=== PATIENT | female | born 1935 | race Caucasian/White ===

== ENCOUNTER 2023-03-08 09:41 | Outpatient (OUT) | payer MEDICARE, SELFPAY ==
--- NOTE | 2023-03-08 09:51 | XR_ITS ---
The [address] [address] Patient Name: SALMA QUAN MRN: [id number] date: 1935 Sex: F Assigned Patient Location: [facility] Current Patient Location: [facility] Accession/Order Number: [id number] Exam Date: 03/08/2023 09:55 Report Date: 03/08/2023 10:25 At the request of: LILY MAHMOOD Procedure: XR chest 2V EXAM: XR chest 2V HISTORY: Pneumonitis J18.9 COMPARISON: None. TECHNIQUE: PA and lateral views of the chest. FINDINGS: The cardiomediastinal silhouette is normal. Lingula airspace disease. There is no pneumothorax. No pleural effusion is noted. The osseous structures are intact. IMPRESSION: Lingula airspace disease. Electronically authenticated by: MARQUIS CORNELIUS Date: 03/08/2023 10:25
== END 2023-03-08 09:42 | disposition home or self-care (01) ==
LOC: RAD 09:43
PROVIDERS: PCP Family Medicine; Visit Provider Family Medicine
DX: J18.9 Pneumonia, unspecified organism (principal)
CPT/HCPCS: 71046

== ENCOUNTER 2023-04-20 17:45 | Observation (INO) | payer MEDICARE, SELFPAY ==
[2023-04-20 17:47] VITALS: BP 179/68; PULSE 81; RESP 16; TEMP 37.1; O2SAT 98; BMI 35.1
--- NOTE | 2023-04-20 17:49 | ED_ITS ---
HPI - Female Genitourinary General Chief complaint: Urogenital-Female Stated complaint: UTI Time Seen by Provider: 04/20/23 17:49 History of Present Illness HPI Narrative: Patient brought in via EMS with a complaint of weakness. Patient states she has a history of urinary tract infection and pneumonia. She was hospitalized January 25, subsequently went to an extended care facility and was discharged from their March 21. Patient has been at home taking Keflex 500 mg daily for 30 days prophy lactically. She states she was at home and her daughter saw her shakiness if she had chills so they called EMS. Patient states she felt weak. She denies any chest pain, shortness of breath. She denies any nausea, vomiting, diarrhea, constipation, abdominal pain. She denies any flank pain, hematuria, dysuria. She states she has a history of urinary tract infection so she thought she could be having a urinary tract infection. She denies any fall or trauma. She denies any headache. She states she has a cough which is not productive. Related Data Home Medications Medication Instructions Recorded Confirmed cephalexin 500 mg capsule 500 mg PO DAILY 04/20/23 04/20/23 estradiol 0.01% (0.1 mg/gram) 1 g vaginal .Twice a week 04/20/23 04/20/23 vaginal cream furosemide 40 mg tablet 60 mg PO DAILY 04/20/23 04/20/23 gabapentin 300 mg capsule 600 mg PO DAILY 04/20/23 04/20/23 losartan 25 mg tablet 25 mg PO DAILY 04/20/23 04/20/23 metformin 500 mg tablet 500 mg PO BID 04/20/23 04/20/23 oxybutynin chloride 5 mg tablet 5 mg PO DAILY 04/20/23 04/20/23 ropinirole 0.5 mg tablet 0.5 mg PO .hs 04/20/23 04/20/23 Allergies Allergy/AdvReac Type Severity Reaction Status Date / Time naproxen AdvReac Mild Verified 04/20/23 17:50 Review of Systems ROS Status of ROS 10 or more systems reviewed and unremarkable except as noted in history and below [facility] Social History Smoking status: Never smoker Exam Narrative Exam Narrative: Nurses notes and vital signs reviewed and patient is not hypoxic. General: Nontoxic, Elderly, frail, chronically ill and in no apparent distress. Skin: Warm, dry, no pallor noted. No Rash Head: Normocephalic, atraumatic. Neck: Supple, non-tender. Eye: Pupils are equal, round and EOMI. No scleral icterus. Ears, Nose, Mouth, and Throat: no posterior oropharynx erythema or nasal mucosal hypertrophy, uvula is mid-line Oral mucosa is moist Cardiovascular: Regular Rate and Rhythm without murmur, gallop or rub. Respiratory: No accessory muscle use or respiratory distress. Lungs are clear to auscultation, no wheezing, rales or rhonchi Chest Wall: no tenderness Back: No midline thoracic or lumbar vertebral tenderness. No CVA tenderness Musculoskeletal: normal ROM, no calf or popliteal tenderness, no lower extremity edema/swelling GI: Abdomen is soft, non-distended. Normal bowel sounds. No tenderness to palpation. No rebound, guarding, or rigidity noted. Neurological: A&O x4. No cranial nerve dysfunction observed. Moves all extremities. Psychiatric: Cooperative and interactive. Normal mood and affect. Constitutional Vital Signs, click to edit/add: Last Vital Signs Temp 98.7 F 04/20/23 17:47 Pulse 81 04/20/23 17:47 Resp 16 04/20/23 17:47 BP 179/68 H 04/20/23 17:47 Pulse Ox 98 04/20/23 17:47 O2 Del Method Room Air 04/20/23 18:15 Course Vital Signs Vital signs: Vital Signs Temperature 98.7 F 04/20/23 17:47 Pulse Rate 81 04/20/23 17:47 Respiratory Rate 16 04/20/23 17:47 Blood Pressure 179/68 H 04/20/23 17:47 Pulse Oximetry 98 04/20/23 17:47 Oxygen Delivery Method Room Air 04/20/23 17:47 Temperature 98.7 F 04/20/23 17:47 Pulse Rate 81 04/20/23 17:47 Respiratory Rate 16 04/20/23 17:47 Blood Pressure 179/68 H 04/20/23 17:47 Pulse Oximetry 98 04/20/23 17:47 Oxygen Delivery Method Room Air 04/20/23 18:15 MDM - Female Genitourinary MDM Narrative Medical decision making narrative: Patient had an IV established. Previous records were obtained. Lab studies and urinalysis are pending. Patient will be signed out to Dr. Carranza at the end of my shift awaiting labs, reevaluation, and disposition. Differential Diagnosis Differential diagnosis: Likely urinary tract infection Medical Records Attestation: I reviewed the patient's medical records. Lab Data Attestation: I reviewed the patient's lab results. Labs: Lab Results 04/20/23 04/20/23 Range/Units 17:58 18:06 WBC 5.6 (4.0-11.0) 10^3/uL RBC 4.83 (4.20-5.40) 10^6/uL Hgb 14.5 (12.0-16.0) g/dL Hct 44.6 (36.0-48.0) % MCV 92.3 (81.0-99.0) fL MCH 30.0 (26.7-34.0) pg MCHC 32.5 (29.9-35.2) g/dL RDW 14.2 (11.0-15.0) % Plt Count 290 (150-450) 10^3/uL MPV 9.3 L (9.5-13.5) fL Neut % (Auto) 50.4 (43.0-75.0) % Lymph % (Auto) 34.7 (20.5-60.0) % Schleicher % (Auto) 9.7 (1.7-12.0) % Eos % (Auto) 3.4 (0.9-7.0) % Baso % (Auto) 1.3 (0.2-2.0) % Neut # (Auto) 2.8 (1.4-6.5) 10^3/uL Lymph # (Auto) 1.9 (1.2-3.8) 10^3/uL Schleicher # (Auto) 0.5 (0.3-0.8) 10^3/uL Eos # (Auto) 0.2 (0.0-0.7) 10^3/uL Baso # (Auto) 0.1 (0.0-0.1) 10^3/uL Abs Immat Gran (auto) 0.03 (0.00-0.03) 10^3/uL Imm/Tot Granulo (auto) 0.5 (0.0-0.5) % Sodium 143 (136-145) mmol/L Potassium 3.9 (3.5-5.1) mmol/L Chloride 107 (98-107) mmol/L Carbon Dioxide 26.7 (21.0-32.0) mmol/L Anion Gap 13.2 BUN 10.0 (7.0-18.0) mg/dL Creatinine 0.89 (0.55-1.02) mg/dL Est GFR ( Amer) >60 (>=60) Est GFR (Non-Af Amer) >60 (>=60) BUN/Creatinine Ratio 11.2 Glucose 91 (74-106) mg/dL Calcium 9.3 (8.5-10.1) mg/dL Magnesium 2.2 (1.8-2.4) mg/dL Total Bilirubin 1.4 H (0.2-1.0) mg/dL AST 58 H (15-37) U/L ALT 32 (14-59) U/L Alkaline Phosphatase 94 (46-116) U/L Total Protein 7.6 (6.4-8.2) g/dL Albumin 3.0 L (3.4-5.0) g/dL Globulin 4.6 g/dL Albumin/Globulin Ratio 0.7 Urine Color Lt. yellow (YELLOW) Urine Clarity Clear (CLEAR) Urine pH 7.0 (5.0-9.0) Ur Specific [place] 1.010 (1.005-1.025) Urine Protein Negative (NEG/TRACE) mg/dL Urine Glucose (UA) Negative (NEGATIVE) mg/dL Urine Ketones Negative (NEGATIVE) mg/dL Urine Occult Blood Small A (NEGATIVE) Urine Nitrite Negative (NEGATIVE) Urine Bilirubin Negative (NEGATIVE) Urine Urobilinogen 1.0 (0.2-1.0) EU/dL Ur Leukocyte Esterase Negative (NEGATIVE) Urine RBC 2-5 A (0-2) #/HPF Urine WBC 0-2 A (NONE SEEN) #/HPF Ur Squamous Epith Cells Moderate A (NONE/RARE) #/LPF Urine Crystals None seen (None Seen) #/HPF Urine Bacteria Trace A (NONE SEEN) #/HPF Urine Casts None seen (NONE SEEN) #/LPF Urine Mucus None seen (NONE SEEN) Ur Culture Indicated? No Discharge Plan Discharge Patient Disposition: Still a Patient
--- NOTE | 2023-04-20 18:15 | ECG_ITS ---
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
[2023-04-20] MEDS: 0.9 % SODIUM CHLORIDE 1,000 ML 100 ML IV (18:24)
[2023-04-20 18:28] LABS: Bilirubin Urine NEGATIVE (NEGATIVE); Blood Urine SMALL (NEGATIVE); Clarity Urine CLEAR (CLEAR); Color Urine LT. YELLOW (YELLOW); Glucose Urine UA NEGATIVE (NEGATIVE); Ketones Urine NEGATIVE (NEGATIVE); Leukocyte Esterase Urine NEGATIVE (NEGATIVE); Nitrite Urine NEGATIVE (NEGATIVE); Protein Urine NEGATIVE (NEG/TRACE)
[2023-04-20 18:29] LABS: Urine Microscopic Indicated YES
[2023-04-20 18:30] LABS: Basophils Absolute Auto 0.1 10^3/uL (0.0-0.1); Basophils Percent Auto 1.3 % (0.2-2.0); Eosinophils Absolute Auto 0.2 10^3/uL (0.0-0.7); Eosinophils Percent Auto 3.4 % (0.9-7.0); Hematocrit 44.6 % (36.0-48.0); Hemoglobin 14.5 g/dL (12.0-16.0); Immature Granulocytes Abs Auto 0.03 10^3/uL (0.00-0.03); Immature Granulocytes Pct Auto 0.5 % (0.0-0.5); Lymphocytes Absolute Auto 1.9 10^3/uL (1.2-3.8); Lymphocytes Percent Auto 34.7 % (20.5-60.0); Mean Corpuscular HGB Conc 32.5 g/dL (29.9-35.2); Mean Corpuscular Volume 92.3 fL (81.0-99.0); Mean Platelet Volume 9.3 fL (9.5-13.5); Monocytes Absolute Auto 0.5 10^3/uL (0.3-0.8); Monocytes Percent Auto 9.7 % (1.7-12.0); Neutrophils Absolute Auto 2.8 10^3/uL (1.4-6.5); Neutrophils Percent Auto 50.4 % (43.0-75.0); Platelet Count 290 10^3/uL (150-450); Red Blood Count 4.83 10^6/uL (4.20-5.40); Red Cell Distribution Width 14.2 % (11.0-15.0); White Blood Count 5.6 10^3/uL (4.0-11.0)
--- NOTE | 2023-04-20 18:34 | XR_ITS ---
The [address] [address] Patient Name: SALMA QUAN MRN: [id number] date: 1935 Sex: F Assigned Patient Location: ER Current Patient Location: ER Accession/Order Number: [id number] Exam Date: 04/20/2023 18:48 Report Date: 04/20/2023 19:39 At the request of: NEMO CORNEJO Procedure: XR chest 1V EXAM: XR chest 1V HISTORY: cough COMPARISON: 03/08/2023. TECHNIQUE: Chest X-ray, 1 view. FINDINGS: Support devices: None. Lungs/pleura: Mild hazy bibasilar opacities. No definite effusion. No evidence of pneumothorax. Heart and mediastinum: Stable cardiomediastinal contours; unchanged cardiomegaly. Bones: No acute abnormality identified. XR/XR chest 1V IMPRESSION: Mild bibasilar hazy opacities may represent atelectasis or edema/infiltrate. Clinical correlation is necessary. Electronically authenticated by: AGUSTIN COMBS Date: 04/20/2023 19:39
[2023-04-20 18:37] LABS: Bacteria Urine TRACE #/HPF (NONE SEEN); Cast Seen? NONE SEEN #/LPF (NONE SEEN); Crystals Seen? None Seen #/HPF (None Seen); Mucus Urine NONE SEEN (NONE SEEN); Squamous Epithelial Cell Urine MODERATE #/LPF (NONE/RARE); Urine Culture Indicated NO; WBC Urine 0-2 #/HPF (NONE SEEN)
[2023-04-20 18:43] LABS: Alanine Aminotransferase 32 U/L (14-59); Albumin Globulin Ratio 0.7; Alkaline Phosphatase 94 U/L (46-116); Anion Gap 13.2; Aspartate Amino Transferase 58 U/L (15-37); BUN Creatinine Ratio 11.2; Bilirubin Total 1.4 mg/dL (0.2-1.0); Calcium 9.3 mg/dL (8.5-10.1); Carbon Dioxide 26.7 mmol/L (21.0-32.0); Chloride 107 mmol/L (98-107); Estimated GFR (African America >60 (>=60); Estimated GFR (Non-African Ame >60 (>=60); Globulin 4.6 g/dL; Glucose 91 mg/dL (74-106); Magnesium 2.2 mg/dL (1.8-2.4); Potassium 3.9 mmol/L (3.5-5.1); Sodium 143 mmol/L (136-145); Total Protein 7.6 g/dL (6.4-8.2)
[2023-04-20 18:59] VITALS: PULSE 73; RESP 14; O2SAT 98
[2023-04-20 19:02] LABS: Lactate/Lactic Acid 2.5 mmol/L (0.4-2.0)
[2023-04-20 19:42] VITALS: PULSE 66; RESP 18; O2SAT 96
[2023-04-20 20:06] VITALS: BP 148/78; PULSE 77; RESP 22
[2023-04-20 21:01] LABS: Lactate/Lactic Acid 1.5 mmol/L (0.4-2.0)
[2023-04-20] MEDS: KETOROLAC TROMETHAMINE 30 MG/ML VIAL IVP (21:32)
--- NOTE | 2023-04-20 21:34 | PC.NURSE ---
used walker in ER to attempt to ambulate pt at bedside for a poss d/c to home. Pt takes a couple steps front and takes a couple back to the bed. pt had to be assisted back into bed by 2 nurses d/t pt's weakness. notifjuan c
--- NOTE | 2023-04-20 21:46 | PC.NURSE ---
daughter and pt informed of plan to admit to [facility]
[2023-04-20 22:03] VITALS: BP 148/78; PULSE 77; RESP 18; O2SAT 95
--- NOTE | 2023-04-20 22:11 | PC.NURSE ---
report complete with [place] Yue ZAMORA via phone, pt will be transferred by staff to [facility]. Pt's belongings placed in pt belonging bag
[2023-04-20 22:24] VITALS: BMI 34.6
[2023-04-20 22:28] VITALS: BP 173/77; PULSE 70; RESP 18; TEMP 36.7; O2SAT 93
--- NOTE | 2023-04-20 23:50 | W.PM.TELEPN ---
Progress Note: Subjective Subjective Interval history: Family called EMS to be brought in for weakness with difficulty standing. PAtient was admitted in january for UTI and discharged to rehab graduating home on March and doing well until today. Work up overall unremarkable including no apperent UTI. Lactate was elevated but normalized with IVF. No presence of fever or leukocytosis. Ambulation was attempted with minimal ability other than transfer, pivoting. this is below her recent baseline prompting family request for admission for re eval to return to SNF. At present patient reports she felt weak and shaky this morning without UTI symptoms however this is how she felt previously. Symptoms minimally improved at present. Exam Constitutional Vital Signs, click to edit/add: Last Vital Signs Temp 98.0 F 04/20/23 22:28 Pulse 70 04/20/23 22:28 Resp 18 04/20/23 22:28 BP 173/77 H 04/20/23 22:28 Pulse Ox 93 L 04/20/23 22:28 O2 Del Method Room Air 04/20/23 22:28 Common normals: no apparent distress Nutritional appearance: overweight Orientation/consciousness: Yes awake, Yes oriented to person, Yes oriented to place and Yes oriented to time HENMT Common normals: normocephalic Neck & C-Spine Common normals: full ROM and supple Respiratory Common normals: normal respiratory effort Cardio Common normals: regular rate and regular rhythm GI Common normals: soft to palpation Extremity Other: bilateral lower ext. pitting edema. sock mccarthy remain after sock removal bilaterally. Neuro Common normals: oriented x3 Progress Note: Objective Labs Labs: Short CBC 04/20/23 Range/Units 17:58 WBC 5.6 (4.0-11.0) 10^3/uL Hgb 14.5 (12.0-16.0) g/dL Hct 44.6 (36.0-48.0) % Plt Count 290 (150-450) 10^3/uL BMP 04/20/23 17:58 Sodium 143 Potassium 3.9 Chloride 107 Carbon Dioxide 26.7 BUN 10.0 Creatinine 0.89 Glucose 91 Calcium 9.3 Liver Function 04/20/23 Range/Units 17:58 Total Bilirubin 1.4 H (0.2-1.0) mg/dL AST 58 H (15-37) U/L ALT 32 (14-59) U/L Alkaline Phosphatase 94 (46-116) U/L Albumin 3.0 L (3.4-5.0) g/dL Urine 04/20/23 Range/Units 18:06 Urine Color Lt. yellow (YELLOW) Urine Clarity Clear (CLEAR) Urine pH 7.0 (5.0-9.0) Ur Specific [place] 1.010 (1.005-1.025) Urine Protein Negative (NEG/TRACE) mg/dL Urine Glucose (UA) Negative (NEGATIVE) mg/dL Progress Note: A&P Assessment and Plan (1) Weakness: Plan 1. Weakness: Although no obvious UTI I have requested a urine culture. No overt infectious findings and will involve PT/ OT eval. Her dizziness will be investigated with a head CT. otherwise, continue home meds, therapy eval for SNF placement and routine medical management. Her dizziness is not described as a central vertigo. PCP is Dr. Angel Pulmonary: Dr. Estrella Telemedicine Attestation Telemedicine Attestation I conducted this encounter from [[facility]] via secure live, [id number] video conference with the patient, located at [facility] with [Yue ZAMORA]. Prior to the interview, the risks and benefits of telemedicine were discussed with the patient and verbal consent was obtained.
[2023-04-21] MEDS: ENOXAPARIN SODIUM 40 MG/0.4 ML SYRINGE SUBQ ×2 (00:11→21:10)
[2023-04-21] MEDS: 0.9 % SODIUM CHLORIDE 1,000 ML 100 ML IV (00:11)
[2023-04-21 04:45] LABS: Basophils Absolute Auto 0.1 10^3/uL (0.0-0.1); Basophils Percent Auto 1.3 % (0.2-2.0); Eosinophils Absolute Auto 0.3 10^3/uL (0.0-0.7); Eosinophils Percent Auto 4.9 % (0.9-7.0); Hematocrit 37.2 % (36.0-48.0); Hemoglobin 12.5 g/dL (12.0-16.0); Immature Granulocytes Abs Auto 0.03 10^3/uL (0.00-0.03); Immature Granulocytes Pct Auto 0.5 % (0.0-0.5); Lymphocytes Absolute Auto 2.1 10^3/uL (1.2-3.8); Lymphocytes Percent Auto 38.4 % (20.5-60.0); Mean Corpuscular HGB Conc 33.6 g/dL (29.9-35.2); Mean Corpuscular Hemoglobin 32.7 pg (26.7-34.0); Mean Corpuscular Volume 97.4 fL (81.0-99.0); Mean Platelet Volume 9.5 fL (9.5-13.5); Monocytes Absolute Auto 0.7 10^3/uL (0.3-0.8); Monocytes Percent Auto 12.8 % (1.7-12.0); Neutrophils Absolute Auto 2.3 10^3/uL (1.4-6.5); Neutrophils Percent Auto 42.1 % (43.0-75.0); Platelet Count 242 10^3/uL (150-450); Red Blood Count 3.82 10^6/uL (4.20-5.40); Red Cell Distribution Width 15.9 % (11.0-15.0); White Blood Count 5.5 10^3/uL (4.0-11.0)
[2023-04-21 04:50] LABS: PCO2 VBG 34.4 mmHg (40.0-52.0); pH VBG 7.497 (7.330-7.430)
[2023-04-21 05:22] VITALS: BP 162/85; PULSE 57; RESP 16; TEMP 36.4; O2SAT 94
--- NOTE | 2023-04-21 06:00 | CT_ITS ---
The [address] [address] Patient Name: SALMA QUAN MRN: [id number] date: 1935 Sex: F Assigned Patient Location: [facility] Current Patient Location: [facility] Accession/Order Number: [id number] Exam Date: 04/21/2023 05:25 Report Date: 04/21/2023 06:36 At the request of: RUSH MARIN Procedure: CT head/brain wo con EXAM: CT scan of the head without contrast. Dose reduction technique used: Automated exposure control and/or adjustment of the mA and/or kV according to patient size and/or use of iterative reconstruction technique. REASON FOR EXAM: Dizziness COMPARISON: T scan dated 03/01/2022 FINDINGS: No intracranial hemorrhage, mass effect, midline shift, fractures or evidence of acute ischemic infarct. No hydrocephalus. Mild generalized cerebral and cerebellar volume loss. Mild small vessel gliosis. Left maxillary ethmoid sinus mucosal thickening. Remainder unremarkable. CT/CT head/brain wo con IMPRESSION: No acute intracranial abnormalities. Electronically authenticated by: KIARA VILLAGRAN Date: 04/21/2023 06:36
[2023-04-21] MEDS: FUROSEMIDE 40 MG TABLET 60 MG PO (09:03)
[2023-04-21] MEDS: OXYBUTYNIN chloride 5 MG TABLET PO (09:04)
[2023-04-21] MEDS: LOSARTAN POTASSIUM 25 MG TABLET PO (09:04)
[2023-04-21] MEDS: METFORMIN HCL 500 MG TABLET PO ×2 (09:04→21:10)
[2023-04-21] MEDS: GABAPENTIN 300 MG CAPSULE 600 MG PO (09:04)
[2023-04-21] MEDS: OMEPRAZOLE 20 MG CAPSULE.DR PO ×2 (09:04→21:10)
[2023-04-21] MEDS: CEPHALEXIN 500 MG CAPSULE PO (09:04)
--- NOTE | 2023-04-21 09:20 | PC.NURSE ---
patient up from chair with walker per self and walked to bathroom with only oversight from copywriter. patient ableto use restroom and complete pericare on own. patient walked back to chair per self with walker. no SOB noted. call light within reach.
--- NOTE | 2023-04-21 12:21 | PM.HP ---
H&P: HPI History of Present Illness Chief complaint: Weakness Narrative: 88 y/o female brought to ER with weakness. Admitted 01/25-01/28 with UTI and pneumonia. Sent to SNF 01/28-03/21 and home with home health. Reports completed PT but still getting home health. History of recurrent UTI and on keflex. Daughter noticed shaking and chills. Patient developed worsening weakness and not able to get up out of chair unassisted. Concerned of UTI and to ER. WBC and UA normal. Afebrile. Labs with normal renal function. Attempted to ambulate and severe weakness. Family concerned of ability to stay at home and admitted for observation. Started IV fluids and resumed home medication. Feels better this am. Still a little shaky but moving better and able to transfer with minimal assistance. Review of Systems ROS Constitutional Reports: chills; Denies: fever or night sweats Cardiovascular Denies: chest pain, palpitations or edema Respiratory Denies: shortness of breath, cough or wheezing Gastrointestinal Denies: abdominal pain, nausea, vomiting or diarrhea Genitourinary Denies: painful urination [facility] Medical History (Updated 04/21/23 @ 10:43 by Magnus Garrido MD) Social History (Updated 04/20/23 @ 22:23 by Yue Knutson) Within the past year, how often did you have a drink containing alcohol: never Score interpretation: A score less than 3 is consistent with normal alcohol consumption. Smoking status: Never smoker Non-prescribed substance use: denies use Previous occupational history: retired Highest level of school completed/degree received: high school graduate Are you now , , , , never or living with a partner: In a typical week, how many times do you talk on the telephone with family, friends, or neighbors: 3 or more times per week How often do you get together with friends or relatives: 3 or more times per week How often do you attend restorationist or buddhist services: 1-3 times per year Little interest or pleasure in doing things: not at all Feeling down, depressed, or hopeless: not at all Feel stressed/tense/nervous/anxious/difficulty sleeping: not at all Do you think of yourself as: straight/heterosexual Gender Identity: female Meds Home Medications and Allergies Home Medications Medication Instructions Recorded Confirmed Type cephalexin 500 mg capsule 500 mg PO DAILY 04/20/23 04/20/23 History estradiol 0.01% (0.1 mg/gram) 1 g vaginal .Twice a week 04/20/23 04/20/23 History vaginal cream furosemide 40 mg tablet 60 mg PO DAILY 04/20/23 04/20/23 History gabapentin 300 mg capsule 600 mg PO DAILY 04/20/23 04/20/23 History losartan 25 mg tablet 25 mg PO DAILY 04/20/23 04/20/23 History metformin 500 mg tablet 500 mg PO BID 04/20/23 04/20/23 History oxybutynin chloride 5 mg tablet 5 mg PO DAILY 04/20/23 04/20/23 History ropinirole 0.5 mg tablet 0.5 mg PO .hs 04/20/23 04/20/23 History Allergies Allergy/AdvReac Type Severity Reaction Status Date / Time naproxen AdvReac Mild Verified 04/20/23 17:50 Exam Constitutional Vital Signs, click to edit/add: Last Vital Signs Temp 97.6 F 04/21/23 05:22 Pulse 57 L 04/21/23 05:22 Resp 16 04/21/23 05:22 BP 162/85 H 04/21/23 05:22 Pulse Ox 94 L 04/21/23 05:22 O2 Del Method Room Air 04/21/23 05:22 Documenting provider has reviewed patient's vital signs: yes Common normals: no apparent distress, oriented x3 and alert HENMT Common normals: normocephalic Eye Common normals: PERRL and EOMs intact bilaterally Respiratory Common normals: normal respiratory effort and clear to auscultation bilaterally Cardio Common normals: regular rate and regular rhythm; gallops detected, murmurs detected and rub detected GI Common normals: Normal to inspection, nondistended, normoactive bowel sounds present and non-tender Extremity General: no edema Results Labs Labs: Short CBC 04/20/23 04/20/23 Range/Units 04:15 17:58 WBC 5.5 5.6 (4.0-11.0) 10^3/uL Hgb 12.5 14.5 (12.0-16.0) g/dL Hct 37.2 44.6 (36.0-48.0) % Plt Count 242 290 (150-450) 10^3/uL BMP 04/20/23 17:58 Sodium 143 Potassium 3.9 Chloride 107 Carbon Dioxide 26.7 BUN 10.0 Creatinine 0.89 Glucose 91 Calcium 9.3 Liver Function 04/20/23 Range/Units 17:58 Total Bilirubin 1.4 H (0.2-1.0) mg/dL AST 58 H (15-37) U/L ALT 32 (14-59) U/L Alkaline Phosphatase 94 (46-116) U/L Albumin 3.0 L (3.4-5.0) g/dL Urine 04/20/23 Range/Units 18:06 Urine Color Lt. yellow (YELLOW) Urine Clarity Clear (CLEAR) Urine pH 7.0 (5.0-9.0) Ur Specific [place] 1.010 (1.005-1.025) Urine Protein Negative (NEG/TRACE) mg/dL Urine Glucose (UA) Negative (NEGATIVE) mg/dL ABG ABG results: 04/21/23 04:15 VBG pH 7.497 H VBG pCO2 34.4 L Assessment and Plan Assessment and Plan (1) Weakness: (2) Recurrent UTI: (3) Type 2 diabetes mellitus with hyperglycemia: (4) Benign essential hypertension: (5) Edema: Plan Presented with weakness but negative workup. Labs normal and no evidence of UTI. Check urine culture due to recurrent UTI. Resume home medication. Strength improved but continued weakness. Family interested in SNF and had long discussion with family. Patient currently in Observation and no specific diagnosis to qualify for inpatient rehab. If want to go to SNF will have out of pocket cost. Start PT/OT and consult social science teacher. Reassess in am but will be ready for discharge.
[2023-04-21 14:21] VITALS: BP 115/67; PULSE 60; RESP 16; TEMP 36.6; O2SAT 96
[2023-04-21 20:00] VITALS: BP 149/82; PULSE 57; RESP 16; TEMP 36.6
[2023-04-21] MEDS: ROPINIROLE HCL 0.25 MG TABLET 0.5 MG PO (21:16)
[2023-04-21 22:32] VITALS: RESP 16; O2SAT 92
[2023-04-22 04:41] LABS: Basophils Absolute Auto 0.1 10^3/uL (0.0-0.1); Basophils Percent Auto 1.7 % (0.2-2.0); Eosinophils Absolute Auto 0.3 10^3/uL (0.0-0.7); Eosinophils Percent Auto 5.5 % (0.9-7.0); Hematocrit 36.9 % (36.0-48.0); Hemoglobin 12.4 g/dL (12.0-16.0); Immature Granulocytes Abs Auto 0.02 10^3/uL (0.00-0.03); Immature Granulocytes Pct Auto 0.4 % (0.0-0.5); Lymphocytes Absolute Auto 1.7 10^3/uL (1.2-3.8); Lymphocytes Percent Auto 36.6 % (20.5-60.0); Mean Corpuscular HGB Conc 33.6 g/dL (29.9-35.2); Mean Corpuscular Hemoglobin 31.6 pg (26.7-34.0); Mean Corpuscular Volume 93.9 fL (81.0-99.0); Mean Platelet Volume 9.4 fL (9.5-13.5); Monocytes Absolute Auto 0.6 10^3/uL (0.3-0.8); Monocytes Percent Auto 13.3 % (1.7-12.0); Neutrophils Percent Auto 42.5 % (43.0-75.0); Platelet Count 214 10^3/uL (150-450); Red Blood Count 3.93 10^6/uL (4.20-5.40); Red Cell Distribution Width 14.5 % (11.0-15.0); White Blood Count 4.8 10^3/uL (4.0-11.0)
[2023-04-22 04:48] VITALS: BP 157/66; PULSE 83; RESP 16; TEMP 36.7; O2SAT 92
[2023-04-22 04:58] LABS: Anion Gap 9.2; BUN Creatinine Ratio 15.6; Calcium 8.2 mg/dL (8.5-10.1); Carbon Dioxide 25.7 mmol/L (21.0-32.0); Chloride 110 mmol/L (98-107); Estimated GFR (African America >60 (>=60); Estimated GFR (Non-African Ame >60 (>=60); Glucose 90 mg/dL (74-106); Potassium 3.9 mmol/L (3.5-5.1); Sodium 141 mmol/L (136-145)
[2023-04-22] MEDS: FUROSEMIDE 40 MG TABLET 60 MG PO (09:15)
[2023-04-22] MEDS: METFORMIN HCL 500 MG TABLET PO (09:15)
[2023-04-22] MEDS: OXYBUTYNIN chloride 5 MG TABLET PO (09:15)
[2023-04-22] MEDS: GABAPENTIN 300 MG CAPSULE 600 MG PO (09:15)
[2023-04-22] MEDS: OMEPRAZOLE 20 MG CAPSULE.DR PO (09:16)
[2023-04-22] MEDS: CEPHALEXIN 500 MG CAPSULE PO (09:16)
[2023-04-22] MEDS: LOSARTAN POTASSIUM 25 MG TABLET PO (09:16)
--- NOTE | 2023-04-22 10:55 | SWNOTE1 ---
SW met with pt to discuss dc needs. Pt lives at home with her . Pt voiced she was at [facility] and was discharged on March 21. She voiced she has [facility] coming in, only nursing. Therapy with home health just ended a week ago. SW and pt discussed about pt being in observation status and not meeting inpt criteria to have a 3 day inpt stay for rehab. Pt voiced she wishes her family was here. SW to come back when family is present. SW did let her know that there is always the option of paying privately to go to rehab. SW also let her know we can add PT/OT back on with her home health as well. SW to stop back in once family arrives.
--- NOTE | 2023-04-22 12:08 | SWNOTE1 ---
SW spoke with the family in the room. SW discussed that pt is in observation and does not qualify for inpt stay, they would have to pay out of pocket for rehab at [facility]. They voiced understanding, they would just like therapy added on to the Home Health. SW to add on therapy to home health. Pt will be discharged today and resume her [facility]. SW reviewed [facility] form with pt and family, they voiced understanding. Pt's daughter signed [facility] form, original given to daughter and copy placed on chart.
--- NOTE | 2023-04-22 12:30 | CM.NOTE ---
Rounds made with Dr. Garrido. Plan for discharge today with [facility] with the addition of P.T. to their services.
--- NOTE | 2023-04-22 14:57 | P.DS_ITS ---
DS: Providers Provider Date of admission: 04/20/23 22:16 Primary care physician: Fatoumata Chase MD Consults: 04/20/23 22:05 Occupational Therapy Eval and Treat Routine Physical Therapy Eval and Treat Routine DS: Diagnosis Discharge Diagnosis (1) Weakness: (2) Recurrent UTI: (3) Type 2 diabetes mellitus with hyperglycemia: (4) Benign essential hypertension: (5) Edema: DS: Summary Hospital Course Hospital Course: Reason for admission: See H&P for details. 88 y/o female brought to ER with weakness. Admitted 01/25-01/28 with UTI and pneumonia. Sent to SNF 01/28-03/21 and home with home health. Reports completed PT but still getting home health. History of recurrent UTI and on keflex. Daughter noticed shaking and chills. Patient developed worsening weakness and not able to get up out of chair unassisted. Concerned of UTI and to ER. WBC and UA normal. Afebrile. Labs with normal renal function. Attempted to ambulate and severe weakness. Family concerned of ability to stay at home and admitted for observation. Hospital course: Started IV fluids and resumed home medication. Strength slowly improved. Able to get up and move around room with minimal assistance. Started PT. Family interested in SNF but no qualifying diagnosis. Long dis cussion with family about SNF and likely would need to pay out of pocket. Patient did well in hospital and went up a few steps with therapy. on site services specialist arranged for home PT. Discharged home in stable condition. Resume medication without change. Time Spent with Patient Time attestation: Total time spent providing and/or coordinating discharge services: Exam Constitutional Vital Signs, click to edit/add: Last Vital Signs Temp 98.1 F 04/22/23 04:48 Pulse 83 04/22/23 04:48 Resp 16 04/22/23 04:48 BP 157/66 H 04/22/23 04:48 Pulse Ox 92 L 04/22/23 04:48 O2 Del Method Room Air 04/22/23 04:48 Documenting provider has reviewed patient's vital signs: yes Common normals: no apparent distress, oriented x3 and alert HENMT Common normals: normocephalic Eye Common normals: PERRL and EOMs intact bilaterally Respiratory Common normals: normal respiratory effort and clear to auscultation bilaterally Cardio Common normals: regular rate, regular rhythm, no gallops, no murmurs and no rub GI Common normals: Normal to inspection, nondistended, normoactive bowel sounds present and non-tender Extremity Common normals: no pedal edema DS: Data Data Completed and Pending Labs on day of discharge: Labs from last 24 hours 04/22/23 04:30 WBC 4.8 RBC 3.93 L Hgb 12.4 Hct 36.9 MCV 93.9 MCH 31.6 MCHC 33.6 RDW 14.5 Plt Count 214 MPV 9.4 L Neut % (Auto) 42.5 L Lymph % (Auto) 36.6 [place] % (Auto) 13.3 H Eos % (Auto) 5.5 Baso % (Auto) 1.7 Neut # (Auto) 2.0 Lymph # (Auto) 1.7 [place] # (Auto) 0.6 Eos # (Auto) 0.3 Baso # (Auto) 0.1 Abs Immat Gran (auto) 0.02 Imm/Tot Granulo (auto) 0.4 Sodium 141 Potassium 3.9 Chloride 110 H Carbon Dioxide 25.7 Anion Gap 9.2 BUN 12.0 Creatinine 0.77 Est GFR ( Amer) >60 Est GFR (Non-Af Amer) >60 BUN/Creatinine Ratio 15.6 Glucose 90 Calcium 8.2 L Discharge Plan Discharge Disposition: Home, Self-Care Condition: Good Discharge Medications: Continued estradiol 0.01 % (0.1 mg/gram) cream 1 g VAGINAL .Twice a week furosemide 40 mg tablet 60 mg PO DAILY gabapentin 300 mg capsule 600 mg PO DAILY metformin 500 mg tablet 500 mg PO BID losartan 25 mg tablet 25 mg PO DAILY oxybutynin chloride 5 mg tablet 5 mg PO DAILY ropinirole 0.5 mg tablet 0.5 mg PO .hs cephalexin 500 mg capsule 500 mg PO DAILY Rx Instructions: Take for 30 days. Started 04/01/23 Activity: resume usual activities as tolerated Diet: advance to your usual diet Patient Instructions: Weakness (DC) [employer] Instructions[facility], phone number is [phone] Forms: Portal Instructions Follow Up Appointments: Follow up appt. with Dr. Chase on @ 2:00pm Office #: [phone] Discharge Date/Time: 04/22/23 14:21
--- NOTE | 2023-04-23 12:36 | CM.DCFOLLOWU ---
Person spoke with: Dottie How are you feeling? alright How is your pain? no complaints Did you understand your discharge instructions? yes Do you have any questions about your discharge instructions? no Were you given any prescriptions at discharge? no changes. Were you able to get your prescriptions filled? Do you understand how to take your medications as ordered? NA Do you have any questions about your follow up appointment and do you plan to keep your follow up appointment? April 26, 2023. Is there anything else that you would like to discuss? No Questions/Comments/Concerns/Other: Thank you for calling
== END 2023-04-22 14:21 | disposition home or self-care (01) ==
LOC: ER 21:38 → MS 22:22
PROVIDERS: Emergency Medicine; Admitting Provider Family Medicine; Emergency Provider Internal Medicine; PCP Family Medicine; Visit Provider Family Medicine
DX: N39.0 Urinary tract infection, site not specified (principal); E11.65 Type 2 diabetes mellitus with hyperglycemia; I10 Essential (primary) hypertension; R60.9 Edema, unspecified; R53.1 Weakness; Z87.440 Personal history of urinary (tract) infections; Z79.899 Other long term (current) drug therapy; Z79.84 Long term (current) use of oral hypoglycemic drugs
CPT/HCPCS: 36415; 70450; 71045; 80048; 80053; 81001; 81003; 82800; 83605; 83735; 85025; 87086; 93005; 96372; 96374; 97110; 97161; 97165; 97530; 99285; G0378; Q3014

== ENCOUNTER 2023-07-24 16:31 | Outpatient (OUT) | payer MEDICARE, SELFPAY ==
[2023-07-24 16:38] LABS: Bilirubin Urine NEGATIVE (NEGATIVE); Blood Urine SMALL (NEGATIVE); Clarity Urine CLEAR (CLEAR); Color Urine LT. YELLOW (YELLOW); Glucose Urine UA NEGATIVE (NEGATIVE); Ketones Urine NEGATIVE (NEGATIVE); Leukocyte Esterase Urine SMALL (NEGATIVE); Nitrite Urine NEGATIVE (NEGATIVE); Protein Urine NEGATIVE (NEG/TRACE); Specific Gravity Urine <=1.005 (1.005-1.025); Urobilinogen Urine 0.2 EU/dL (0.2-1.0)
--- OUTSIDE RECORDS SUMMARY | 2023-09-03 15:33 | XMS_ITS | CCD ---
Author Name Unknown Address [address] [place] [address] Organization [facility] Care Team Providers Care Boatswain'S Mate Name Role Phone Brendon Momin Unavailable [place] Unavailable Bobby Ramesh Unavailable MD Berndon Momin Primary Care Provider MD Brendon Momin Attending Provider Staci Asencio Unavailable MD Brendon Momin Primary Care Provider GREG Asencio Attending Provider MD Brendon Momin Attending Provider [phone] DR CHON LYNCH Admitting Unavailable DR LORA BLACKBURN Consulting Unavailable SYED, DR CHON Henry Attending Unavailable [facility], DR HEALY Primary Care Unavailable MADIE, DR BOBBY Benavidez Consulting Unavailable SYED, DR CHON Henry Consulting Unavailable CHANTAL Mendoza, NEMO Consulting Unavailable GISELLE, DR HEALY Primary Care Unavailable DR LORA BLACKBURN Admitting Unavailable DR LORA BLACKBURN Attending Unavailable DR LORA BLACKBURN Consulting Unavailable STEFANI .DR ANNIE Consulting Unavailable MADIE, DR BOBBY Benavidez Consulting Unavailable RONDA .PRISCILLA Consulting Unavailable CHANTAL Mendoza, NEMO Consulting Unavailable GISELLE, DR HEALY Primary Care Unavailable SHAIKH Cris SHAW Admitting Unavailable DR MARQUIS DENNY Consulting Unavailable SHAIKH Cris SHAW Attending Unavailable SHAIKH Cris SHAW Consulting Unavailable BOBBY JUAREZ Consulting Unavailable ISHA ELDRIDGE Consulting Unavailable SURAJ KUNZ Consulting Unavailable GISELLE, DR HEALY Primary Care Unavailable DAVIE DEE Consulting Unavailable VALERIA, LEDEZMA H Admitting Unavailable FAWWAD, LEDEZMA H Attending Unavailable SHAIKH Cris SHAW Consulting Unavailable MARCO LEROY Consulting Unavailable SalvatoreFatoumata Unavailable MD Brendon Momin Primary Care Provider MD Brendon Momin Attending Provider [phone] GREG Asencio Attending Provider Brendon Momin Admitting Unavailable Brendon Momin Primary Care Unavailable Brendon Momin Attending Unavailable Brendon Momin Admitting Unavailable Brendon Momin Primary Care Unavailable Brendon Momin Attending Unavailable Elif, Staci Admitting Unavailable Elif, Staci Attending Unavailable Brendon Momin Primary Care Unavailable Brendon Momin Admitting Unavailable Brendon Momin Primary Care Unavailable Brendon Momin Attending Unavailable Brendon Momin Primary Care Unavailable Brendon Momin Attending Unavailable Brendon Momin Admitting Unavailable Elif, Staci Admitting Unavailable Brendon Momin Primary Care Unavailable Elif, Staci Attending Unavailable Brendon Momin Primary Care Unavailable Ingrid Klein Admitting Unavailable Ingrid Klein Attending Unavailable Morena Vera Unavailable Allergies Allergy Classification Reported Allergen(s) Allergy Type Date of Onset Reaction(s) Facility (20 sources) Acetaminophen / dichloralphenazone / isometheptene; Translations: [MIDRIN] Drug Allergy 10-18-19 13 Unknown [facility] (20 sources) Acetaminophen / oxyCODONE Drug Allergy Unknown [facility] Other (20 sources) Clarithromycin Drug Allergy 09-29-19 19 Unknown, Unknown Reaction [facility] (20 sources) Esomeprazole Drug Allergy 09-29-19 19 stomach upset [facility] (20 sources) Naproxen Drug Allergy 09-29-19 19 muscle spasms, Shakiness [facility] (7 sources) Acetaminophen; Translations: [acetaminophen] Drug Allergy 09-29-19 Unknown Reaction [facility] (7 sources) dichloralphenazone; Translations: [dichloralphenazone] Drug Allergy 09-29-19 Unknown Reaction [facility] (7 sources) isometheptene; Translations: [isometheptene] Drug Allergy 09-29-19 Unknown Reaction [facility] (7 sources) oxyCODONE; Translations: [oxycodone] Drug Allergy 04-14-20 19 Unknown Reaction [facility] (20 sources) Acetaminophen / dichloralphenazone / isometheptene Drug Allergy Unknown [facility] Other (1 source) Clarithromycin Drug Allergy 10-05-19 13 [facility] (1 source) Naproxen Drug Allergy 02-14-20 22 [facility] (1 source) Clarithromycin Drug Allergy 09-29-19 19 [facility] (1 source) Esomeprazole Drug Allergy 09-29-19 [facility] (1 source) Naproxen Drug Allergy 09-29-19 [facility] Medications Current Medications Medication Drug Class(es) Dates Sig (Normalized) Sig (Original) acetaminophen 500 mg oral tablet (20 sources) Start: 06-12-2018 Acetaminophen (Tylenol Extra Strength) 500 mg Tablet Active 500 MG PO As Directed June 12, 2018 12:00am take 1 tablet by eneida th every four hours as needed Acetaminophen 325 MG 1 tablet as needed Orally every 4 hrs Not-Taking albuterol 0.833 mg/ml / ipratropium bromide 0.167 mg/ml inhalation solution (10 sources) Anticholinergic, beta2-Adrenergic Agonist take 3 mL by inhalation every six hours as needed Ipratropium-Albuterol 0.5-2.5 (3) MG/3ML 3 mL as needed Inhalation every 6 hrs for 30 days Active cephalexin 500 mg oral capsule (20 sources) Cephalosporin Antibacterial Start : 02-25 take 1 capsule by mouth every twenty-four hours Cephalexin 500 MG 1 capsule Orally Once a day for 30 days Feb, Active Start: 07-21-2018 End: 07-28-2018 take 1 capsule by mouth twice daily Cephalexin (Keflex) 500 mg capsule Discontinued 500 MG PO Twice daily 29 03July 21, 2018 1:00am July 28, 2018 1:02am diclofenac sodium 0.01 mg/mg topical gel (6 sources) Nonsteroidal Anti-inflammatory Drug Start: 05-25-2020 Start: 05-25-2020 Diclofenac Sod ium 1 % as directed Transdermal Twice a day May, Active doxycycline hyclate 100 mg oral capsule (12 sources) Tetracycline-class Drug Start: 07-07-2021 take 100 mg by mouth twice daily Doxycycline Hyclate Active 100 MG PO Twice daily 05 07July 07, 2021 12:00am estradiol 0.1 mg/ml vaginal cream (13 sources) Estrogen Start: 02-25-2023 Estrace 0.1 MG/GM 1 gm Vaginal twice a week for 30 days Feb, Active Start: 02-25-2023 furosemide 40 mg oral tablet (20 sources) Loop Diuretic Start: 12-29-2020 take 1 tablet by mouth every twenty-four hours Furosemide 40 MG 1 tablet Orally Once a day Dec, Active Start: 12-29-2020 take 0.5 tablet by m outh every other day Furosemide 40 MG 1/2 tablet Orally QOD Dec, Not-Taking Furosemide 40 MG 1.5 Orally Once a day for 90 days Active gabapentin 300 mg oral capsule (20 sources) Anti-epileptic Agent Start: 04-05-2018 take 600 mg by mouth once daily Gabapentin Active 600 MG PO Daily April 05, 2018 12:00am take 2 capsules by mouth once da isidoro Gabapentin 300 mg TAKE 2 CAPSULES BY MOUTH EVERY DAY Orally for 30 days Active LORazepam 0.5 mg oral tablet (20 sources) Benzodiazepine Start: 09-02-2019 Lorazepam (Ati van) 0.5 mg Tablet Active TABLET September 02, 2019 1:00am Start: 06-12-2018 End: 07-21-2018 Lorazepam (Ativan) 0.5 mg Ta blet Discontinued 0.5 MG PO As Directed June 12, 2018 12:00am July 21, 2018 2:54pm Start: 04-05-2018 End: 04-06-2018 take 0.5 mg by mouth once daily Lorazepam Discontinued 0.5 MG PO Daily April 05, 2018 12:00am April 06, 2018 1:36am losartan potassium 25 mg oral tablet (20 sources) Angiotensin 2 Receptor Salma Start: 08-28-2010 take 25 mg by mouth once daily Losartan Active 25 MG PO Daily April 05, 2018 12:00am metFORMIN hydrochloride 500 mg oral tablet (20 sources) Biguanide Start: 04-05-2018 take 500 mg by mouth twice daily Metformin Active 500 MG PO Twice daily April 05, 2018 12:00am take 1 tablet by eneida th every twenty-four hours metFORMIN HCl 500 MG 1 tablet with a meal Orally Once a day for 30 day(s) Active naproxen sodium 550 mg oral tablet (12 sources) Nonsteroidal Anti-inflammatory Drug Start: 04-14-2019 take 1 tablet by mouth twice daily Naproxen Sodium (Anaprox Ds) 550 mg Tablet Active 550 MG PO Twice daily April 14, 2019 12:00am Start: 06-12-2018 End: 06-12-2018 take 1 tablet by mouth twice daily Naproxen Sodium (Anaprox Ds) 550 mg Tablet Discontinued 550 MG PO Twice daily June 12, 2018 12:00am June 12, 2018 1:32pm nitrofurantoin, macrocrystals 25 mg / nitrofurantoin, monohydrate 75 mg oral capsule (5 sources) Nitrofuran Antibacterial take 1 capsule by mouth every twenty-four hours Nitrofurantoin Monohyd Macro 100 MG 1 capsule with food Orally daily for 30 days Active nystatin [id number] unt/ml topical cream (1 source) Polyene Antifungal Nystatin 1000 00 UNIT/GM 1 application Externally Twice a day for 10 days Active omeprazole 20 mg delayed release oral capsule (20 sources) Proton Pump Inhibitor Start: 2022 take 1 capsule by mouth once daily Omeprazole 20 MG 1 capsule 30 minutes before morning meal Orally Once a day for 30 days Dec, Active Start: 04-05-2018 take 20 mg by mouth twice stephenie y Omeprazole Active 20 MG PO Twice daily April 05, 2018 12:00am One Touch Glucometer (14 sources) Start: 04-03-2023 One Touch Glucometer to check BS twice daily for 365 days [facility], Active oxybutynin chloride 5 mg oral tablet (20 sources) Cholinergic Muscarinic Antagonist Start: 04-05-2018 take 5 mg by mouth once daily Oxybutynin Chloride Active 5 MG PO Daily April 05, 2018 12:00am oxyCODONE hydrochloride 5 mg oral tablet (12 sources) Opioid Agonist Start: 09-29-2018 take 1 tablet by mouth once daily Oxycodone Active 1 TAB PO Daily September 29, 2018 1:00am Start: 07-21-2018 End: 07-23-2018 take 5 mg by mouth every six hours Oxycodone Discontinued 5 MG PO Q6H 4 2 July 21, 2018 July 23, 2018 1:02am microencapsulated potassium chloride 20 meq extended release oral tablet (20 sources) Start: 01-22-2023 take 1 tablet by mouth every twenty-four hours Klor-Con M20 20 MEQ 1 tablet with food Orally Once a day for 30 days January, Active Start: 12-20-2022 take 1 tablet by eneida th every twenty-four hours Potassium Chloride ER 20 MEQ 1 tablet with food Orally Once a day for 30 days Dec, Active predniSONE 10 mg oral tablet (4 sources) Start: 07-18-2022 predniSONE 10 MG 4 tabs x 7 days, 3 tabs x 7 days, 2 tabs x 7 days, 1 tab x 7 days then stop Orally Once a day Jul, Active Rollator (20 sources) Start: 08-05-2019 Start: 08-05-2019 Rollator 2018 Active rOPINIRole 0.5 mg oral tablet (20 sources) Nonergot Dopamine Agonist take 1 tablet by mouth at bedtime rOPINIRole HCl 0.5 mg TAKE 1 TABLET BY MOUTH 1-3 HOURS BEFORE bedtime for 90 Active SITagliptin 100 mg oral tablet (4 sources) Dipeptidyl Peptidase 4 Inhibitor take 1 tablet by mouth every twenty-four hours Januvia 100 MG 1 tablet Orally Once a day for 28 days Active tiZANidine 2 mg oral tablet (11 sources) Central alpha-2 Adrenergic Agonist Start: 9 Tizanidine Active TABLET April 14, 2019 12:00am zolpidem tartrate 5 mg oral tablet (6 sources) gamma-Aminobutyric Acid-ergic Agonist Start: 9 take 1 tablet by mouth once daily at bedtime Zolpidem (Ambien) 5 mg Tablet Active 5 MG PO Daily at bedtime April 14, 2019 12:00am Completed/Discontinued Medications Medication Drug Class(es) Dates Sig (Normalized) Sig (Original) acetaminophen 325 mg / HYDROcodone bitartrate 5 mg oral tablet (15 sources) Opioid Agonist Start: 12-26-2020 take 1 tablet by mouth twice daily as needed HYDROcodone-Aceta minophen 5-325 MG 1 tablet as needed Orally twice daily for 30 days G89.29 Chronic pain Dec, Not-Taking Start: 04-14-2019 Hydrocodone-Ac etaminophen ([place]) 5-325 mg Tablet Active TABLET April 14, 2019 12:00am benzonatate 100 mg oral capsule (20 sources) Non-narcotic Antitussive take 1 capsule by mouth every eight hours Tessalon Perles 100 MG 1 capsule as needed Orally Three times a day Not-Taking ciprofloxacin 500 mg oral tablet (16 sources) Quinolone Antimicrobial Start: 01-09-20 take 1 tablet by mouth every twelve hours Cipro 500 MG 1 tablet Orally every 12 hrs for 5 days Dec, Not-Taking Start: 02-20-2021 take 1 tablet by mouth every t welve hours Ketorolac (20 sources) Nonsteroidal Anti-inflammatory Drug, Cyclooxygenase Inhibitor Start: 10-10-2017 Toradol per 15 mg Sep, 30 uL levoFLOXacin 250 mg oral tablet (6 sources) Quinolone Antimicrobial Start: 04-07-2018 End: 06-12-2018 take 1 tablet by mouth once daily for urinary tract infection Levofloxacin (Levaquin) 250 mg tablet Discontinued 250 MG PO Daily April 07, 2018 12:00am June 12, 2018 1:22pm take until finished for UTI methocarbamol 750 mg oral tablet (9 sources) Muscle Relaxant take 1 tablet by mouth every six hours Methocarbamol 750 MG 1 tablet Orally every 6 hrs Not-Taking ondansetron 4 mg disintegrating oral tablet (20 sources) Serotonin-3 Receptor Antagonist Start: 07-21-2018 End: 09-29-2018 take 1 tablet by mouth three times daily Ondansetron (Zofran Odt) 4 mg Tablet,Disintegra ting Discontinued 4 MG PO Three times daily July 21, 2018 1:00am September 29, 2018 4:59pm Start: 04-05-2018 take 4 mg by mouth twice daily Ondansetron Hcl Active 4 MG PO Twice daily April 05, 2018 12:00am take 1 tablet by eneida th three times daily as needed Ondansetron HCl 4 MG 1 tablet Orally tid prn for 30 days Active traMADol hydrochloride 50 mg oral tablet (6 sources) Opioid Agonist Start: 04-07-2018 End: 06-12-2018 take 0.5-1 tablets by mouth every six hours as needed for pain Tramadol (Ultram) 50 mg tablet Discontinued 50 MG PO Q6H 45 7 April 07, 2018 12:00am June 12, 2018 1:22pm 1/2 - 1 tab po q 6 hours prn pain vibegron 75 MG Oral Tablet [Gemtesa] (19 sources) take 1 tablet by mouth every twenty-four hours Gemtesa 75 MG 1 tablet Orally Once a day Not-Taking take 1 tablet by eneida th every twenty-four hours Gemtesa 75 MG 1 tablet Orally Once a day Active Problems Active Problems Problem Classification Problem Date Documented Date Episodic/Chronic Adjustment disorders (20 sources) Grief finding; Translations: [Adjustment disorder, unspecified] Onset: 01-08-2022 Resolved: 01-08-2022 Chronic Allergic reactions (2 sources) Allergy status to other antibiotic agents status; Translations: [Allergy status to other drugs, medicaments and biological substances status] Onset: 01-30-2023 Episodic Anxiety disorders (20 sources) Anxiety state; Translations: [Anxiety disorder, unspecified] Onset: 05-25-2021 Resolved: 05-25-2021 Chronic Biliary tract disease (6 sources) Acute cholecystitis; Translations: [Acute cholecystitis] 04-05-2018 Episodic Chronic obstructive pulmonary disease and bronchiectasis (20 sources) Bronchiolectasis; Translations: [Bronchiectasis, uncomplicated] Chronic Diabetes mellitus with complications (15 sources) Type 2 diabetes mellitus with hyperglycemia; Translations: [Type 2 diabetes mellitus] Onset: 01-30-2023 Chronic Diabetes mellitus 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 (20 sources) Diabetes mellitus 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; Translations: [Type 2 diabetes mellitus 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s] Onset: 05-25-2021 Resolved: 11-30-2021 Chronic Disorders of lipid metabolism (20 sources) Pure hypercholesterolemia; Translations: [Pure hypercholesterolemia] Chronic Esophageal disorders (20 sources) Gastroesophageal reflux disease; Translations: [Gastro-esophageal reflux disease without esophagitis] Onset: 05-25-2021 Resolved: 12-18-2021 Chronic Essential hypertension (20 sources) Hypertensive disorder; Translations: [Essential (primary) hypertension] Onset: 05-25-2021 Resolved: 05-07-2022 Chronic Fluid and electrolyte disorders (1 source) Dehydration; Translations: [DEHYDRATION] Onset: 01-30-2023 Episodic Headache; including migraine (20 sources) Muscular headache ; Translations: [Tension-type headache, unspecified, not intractable] Chronic Immunizations and screening for infectious disease (3 sources) Contact with and (suspected) exposure to other viral communicable diseases; Translations: [Encounter for immunization] Onset: 07-07-2021 Resolved: 08-03-2021 Episodic Malaise and fatigue (8 sources) Weakness; Translations: [Other fatigue] Onset: 10-17-2022 Episodic Mycoses (2 sources) Candidal stomatitis; Translations: [Candidiasis of skin and nail] Episodic Nausea and vomiting (5 sources) Nausea Onset: 05-25-2021 Resolved: 08-03-2021 Episodic Osteoarthritis (20 sources) Osteoarthritis; Translations: [Unspecified osteoarthritis, unspecified site] Chronic Other aftercare (2 sources) Encounter for follow-up examination after completed treatment for conditions other than malignant neoplasm Onset: 01-08-2022 Resolved: 01-08-2022 Episodic Other aftercare (1 source) 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; Translations: [OTH GROUP HOME CURRENT DRUG THERAPY] Onset: 01-30-2023 Episodic Other aftercare (1 source) senior living (current) use of oral hypoglycemic drugs; Translations: [GROUP HOME USE ORAL HYPOGLYCEMIC DX] Onset: 01-30-2023 Episodic Other and ill-defined heart disease (20 sources) Cardiomegaly; Translations: [Cardiomegaly] Chronic Other and ill-defined heart disease (2 sources) Cardiomegaly; Translations: [Cardiomegaly] Onset: 06-08-2022 Chronic Other diseases of bladder and urethra (20 sources) Overactive bladder; Translations: [Overactive bladder] Chronic Other diseases of bladder and urethra (1 source) Overactive bladder Onset: 11-30-2021 Resolved: 11-30-2021 Chronic Other disorders of stomach and duodenum (10 sources) Indigestion; Translations: [Functional dyspepsia] Episodic Other disorders of stomach and duodenum (2 sources) Functional dyspepsia Episodic Other endocrine disorders (20 sources) Hypoglycemia; Translations: [Hypoglycemia, unspecified] Chronic Other endocrine disorders (1 source) Hypoglycemia, unspecified Onset: 11-30-2021 Resolved: 11-30-2021 Chronic Other hereditary and degenerative nervous system conditions (20 sources) Restless legs; Translations: [Restless legs syndrome] Chronic Other hereditary and degenerative nervous system conditions (7 sources) Restless legs syndrome; Translations: [RESTLESS LEGS SYNDROME] Onset: 10-17-2022 Chronic Other lower respiratory disease (20 sources) Interstitial lung disease; Translations: [Interstitial pulmonary disease, unspecified] Chronic Other lower respiratory disease (11 sources) Interstitial pulmonary disease, unspecified Chronic Other lower respiratory disease (20 sources) Cough; Translations: [Cough] Episodic Other nervous system disorders (20 sources) Chronic pain; Translations: [Other chronic pain] Chronic Other nervous system disorders (1 source) Other chronic pain Chronic Other nervous system disorders (1 source) Difficulty in walking, not elsewhere classified; Translations: [DIFFICULTY IN WALKING NEC] Onset: 01-30-2023 Chronic Other nervous system disorders (2 sources) Tremor, unspecified Onset: 01-08-2022 Resolved: 01-08-2022 Episodic Other non-traumatic joint disorders (20 sources) Arthralgia of the lower leg; Translations: [Pain in right knee] Episodic Other nutritional; endocrine; and metabolic disorders (1 source) Obesity, unspecified; Translations: [OBESITY UNSPECIFIED] Onset: 10-17-2022 Chronic Other nutritional; endocrine; and metabolic disorders (1 source) Body mass index (BMI) 32.0-32.9, adult; Translations: [BODY MASS INDEX BMI 32.0-32.9 ADULT] Onset: 10-17-2022 Chronic Other nutritional; endocrine; and metabolic disorders (1 source) Other disorders of bilirubin metabolism; Translations: [OTH DISORDERS BILIRUBIN METABOLISM] Onset: 03-07-2022 Chronic Other upper respiratory disease (20 sources) Seasonal allergy; Translations: [Other seasonal allergic rhinitis] Chronic Mitra-; endo-; and myocarditis; cardiomyopathy (except that caused by tuberculosis or sexually transmitted disease) (20 sources) Cardiomyopathy; Translations: [Cardiomyopathy, unspecified] Chronic Pneumonia (except that caused by tuberculosis or sexually transmitted disease) (20 sources) Pneumonia; Translations: [Pneumonia, unspecified organism] Onset: 02-20-2022 07-07-2021 Episodic Residual codes; unclassified (20 sources) Sleep apnea; Translations: [Sleep apnea, unspecified] Chronic Residual codes; unclassified (20 sources) Obstructive sleep apnea syndrome; Translations: [Obstructive sleep apnea (adult) (pediatric)] Chronic Residual codes; unclassified (2 sources) Obstructive sleep apnea (adult) (pediatric); Translations: [OBSTRUCTIVE SLEEP APNEA] Onset: 08-01-2021 Resolved: 08-01-2021 Chronic Residual codes; unclassified (1 source) Sleep apnea, unspecified; Translations: [SLEEP APNEA UNSPECIFIED] Onset: 01-30-2023 Chronic Residual codes; unclassified (1 source) Obstructive sleep apnea (adult)(pediatric); Translations: [Obstructive sleep apnea (adult) (pediatric)] Onset: 05-24-2023 Chronic Residual codes; unclassified (1 source) Chills (without fever) Episodic Spondylosis; intervertebral disc disorders; other back problems (20 sources) Spondylosis; Translations: [Spondylosis, unspecified] Chronic Spondylosis; intervertebral disc disorders; other back problems (20 sources) Lumbar radiculopathy; Translations: [Radiculopathy, lumbar region] Episodic Thyroid disorders (20 sources) Goiter; Translations: [Nontoxic goiter, unspecified] Chronic Transient cerebral ischemia (20 sources) Transient cerebral ischemia; 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 Unclassified (1 source) CONTACT W/AND (SUSP) EXPOS COVID-19; Translations: [CONTACT W/AND (SUSP) EXPOS COVID-19] Onset: 01-30-2023 Unclassified (1 source) ELEV LVLS LIVER TRANSAMINASE LVLS; Translations: [ELEV LVLS LIVER TRANSAMINASE LVLS] Onset: 03-07-2022 Unclassified (1 source) Interstitial pulmonary disease, unspecified; Translations: [Interstitial pulmonary disease, unspecified] Onset: 11-26-2022 Unclassified (1 source) Nontoxic goiter, unspecified; Translations: [Nontoxic goiter, unspecified] Onset: 06-15-2022 Unclassified (1 source) Cough, unspecified; Translations: [Cough, unspecified] Onset: 06-15-2022 Unclassified (1 source) Cough, unspecified; Translations: [Cough, unspecified] Onset: 06-08-2022 Urinary tract infections (10 sources) Urinary tract infection, site not specified; Translations: [UTI SITE NOT SPECIFIED] Onset: 01-08-2022 Resolved: 01-08-2022 Episodic Past or Other Problems Problem Classification Problem Date Documented Date Episodic/Chronic Bacterial infection; unspecified site (1 source) Unspecified Escherichia coli [E. coli] as the cause of diseases classified elsewhere; Translations: [UNS E COLI CAUSE DX CLASS ELSEWHERE] Onset: 10-17-2022 Episodic Diabetes mellitus 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 (5 sources) Impaired fasting glycemia; Translations: [Impaired fasting glucose] Episodic E Codes: Fall (1 source) Unspecified fall, initial encounter; Translations: [UNSPECIFIED FALL INITIAL ENCOUNTER] Onset: 03-07-2022 Episodic Fever of unknown origin (1 source) Fever, unspecified; Translations: [Fever, unspecified fever cause R50.9] Onset: 07-07-2021 Resolved: 07-07-2021 Episodic Gastritis and duodenitis (5 sources) Viral gastritis; Translations: [Gastritis, unspecified, without bleeding] Episodic Genitourinary symptoms and ill-defined conditions (5 sources) Other symptoms and signs involving the genitourinary system; Translations: [Personal history of urinary (tract) infections] Onset: 05-25-2021 Resolved: 05-25-2021 Episodic Influenza (1 source) Influenza due to other identified influenza virus with other respiratory manifestations; Translations: [FLU D/T OTH ID FLU VIR OTH RSP MANF] Onset: 03-07-2022 Episodic Other lower respiratory disease (1 source) Shortness of breath Onset: 05-24-2022 Resolved: 05-24-2022 Episodic Other lower respiratory disease (1 source) Personal history of pneumonia (recurrent); Translations: [PERSONAL HX OF PNEUMONIA RECURRENT] Onset: 03-07-2022 Episodic Other non-traumatic joint disorders (1 source) Effusion, unspecified ankle Onset: 08-03-2021 Resolved: 08-03-2021 Episodic Other nutritional; endocrine; and metabolic disorders (1 source) Overweight Onset: 08-28-2021 Resolved: 08-28-2021 Episodic Other screening for suspected conditions (not mental disorders or infectious disease) (1 source) Other specified abnormal findings of blood chemistry; Translations: [OTH SPEC ABNORMAL FINDINGS BLD CHEM] Onset: 02-20-2022 Episodic Residual codes; unclassified (4 sources) Localized edema; Translations: [Localized edema] Onset: 05-25-2021 Resolved: 05-25-2021 Episodic Residual codes; unclassified (3 sources) Edema, unspecified; Translations: [Edema, unspecified] Onset: 01-03-2023 Episodic Residual codes; unclassified (1 source) Disorientation, unspecified; Translations: [DISORIENTATION UNSPECIFIED] Onset: 03-07-2022 Episodic Superficial injury; contusion (1 source) Contusion of scalp, initial encounter; Translations: [CONTUSION SCALP INITIAL ENCOUNTER] Onset: 03-07-2022 Episodic Unclassified (9 sources) Cough R05.9 Onset: 08-03-2021 Resolved: 05-31-2022 Results Test Name Value Interpretation Reference Range Facil ity CBC AUTO DIFFon 01-28-2023 BASO # 0.1 103/ul Normal 0.0-0.1 [facility] Comment on above: Performed By: #### B [id number] #### [facility] [address] [place] [address] Dr. Eliecer Das Basophils/100 WBC (Bld) 1.1 % Normal 0.2-2.0 [facility] Comment on above: Performed By: #### B [id number] #### [facility] [address] [place] [address] Dr. Eliecer Das EO # 0.2 103/ul Normal 0.0-0.7 [facility] Comment on above: Performed By: #### B [id number] #### [facility] [address] [place] [address] Dr. Eliecer Das Eosinophils/100 WBC (Bld) 3.6 % Normal 0.9-7.0 [facility] Comment on above: Performed By: #### B [id number] #### [facility] [address] [place] [address] Dr. Eliecer Das Erythrocyte distribution wid th (RBC) [Ratio] 18.3 % Critically high 11.0-15.0 [facility] Comment on above: Performed By: #### B [id number] #### [facility] [address] [place] [address] Dr. Eliecer Das Hematocrit (Bld) [Volume fraction] 34.9 % Critically low 36.0-48.0 [facility] Comment on above: Performed By: #### B [id number] #### [facility] [address] [place] [address] Dr. Eliecer Das Hemoglobin (Bld) [Mass/Vol] 12.4 g/dL Normal 12.0-16. 0 [facility] Comment on above: Performed By: #### B [id number] #### [facility] [address] [address] [address] Eliecer Das IG # 0.08 10e3/ul Critically high 0.00-0.03 [facility] Comment on above: Performed By: #### B [id number] #### [facility] [address] [address] [address] Eliecer Das IG % 1.2 % Critically high 0.0-0.5 [facility] Comment on above: Performed By: #### B [id number] #### [facility] [address] [address] [address] Eliecer Das LYMPH # 1.9 103/ul Normal 1.2-3.8 [facility] Comment on above: Performed By: #### B [id number] #### [facility] [address] [place] [address] Dr. Eliecer Das Lymphocytes/100 WBC (Bld) 29.5 % Normal 20.5-60.0 [facility] Comment on above: Performed By: #### B [id number] #### [facility] [address] [address] [address] Eliecer Das MANUAL DIFF REQ NO Normal [facility] Comment on above: Performed By: #### B [id number] #### [facility] [address] [address] [address] Eliecer Das MCH (RBC) [Entitic mass] 36.5 pg Critically high 26.7-3 4.0 [facility] Comment on above: Performed By: #### B [id number] #### [facility] [address] [address] [address] Eliecer Das MCHC (RBC) [Mass/Vol] 35.5 g/dL Critically high 29.9-35.2 [facility] Comment on above: Performed By: #### B [id number] #### [facility] [address] [place] [address] Dr. Eliecer Das MCV (RBC) [Entitic vol] 102.6 fL Critically high 81.0-99 .0 [facility] Comment on above: Performed By: #### B [id number] #### [facility] [address] [place] [address] Dr. Eliecer Das MONO # 0.8 103/ul Normal 0.3-0.8 [facility] Comment on above: Performed By: #### B [id number] #### [facility] [address] [place] [address] Dr. Eliecer Das Monocytes/100 WBC (Bld) 12.1 % Critically high 1.7-12. 0 [facility] Comment on above: Performed By: #### B [id number] #### [facility] [address] [place] [address] Dr. Eliecer aDs NEUT # 3.4 103/ul Normal 1.4-6.5 [facility] Comment on above: Performed By: #### B [id number] #### [facility] [address] [place] [address] Dr. Eliecer Das Neutrophils/100 WBC (Bld) 52.5 % Normal 43.0-75.0 [facility] Comment on above: Performed By: #### B [id number] #### [facility] [address] [place] [address] Dr. Eliecer Das Platelet mean volume (Bld) [Entitic vol] 9.6 fL Normal 9.5-13.5 [facility] Comment on above: Performed By: #### B [id number] #### [facility] [address] [place] [address] Dr. Eleicer Das PLT 236 103/ul Normal 150-450 [facility] Comment on above: Performed By: #### B [id number] #### [facility] [address] [place] [address] Dr. Eliecer Das RBC 3.40 106/ul Critically low 4.20-5.40 [facility] Comment on above: Performed By: #### B [id number] #### [facility] [address] [place] [address] Dr. Eliecer Das WBC 6.4 103/ul Normal 4.0-11.0 [facility] Comment on above: Performed By: #### B [id number] #### [facility] [address] [place] [address] Dr. Eliecer Das POINT OF CARE GLUCOSEon 01-14 Glucose [Mass/Vol] 185 mg/dL Critically high 74-[address] [facility] Comment on above: Performed By: #### P OCGLUC #### [facility] [address] [place] [address] Dr. Eliecer Das PROF 14(COMP METB)on 023 Albumin [Mass/Vol] 2.1 g/dL Critically low 3.4-5.0 [facility] Comment on above: Performed By: #### B [id number] #### [facility] [address] [place] [address] Dr. Eliecer Das Albumin/Globulin [Mass ratio] 0.5 {ratio} Normal [facility] Comment on above: Performed By: #### B [id number] #### [facility] [address] [place] [address] Dr. Eliecer Das ALP [Catalytic activity/Vol] 75 U/L Normal 46-116 [facility] Comment on above: Performed By: #### B [id number] #### [facility] [address] [place] [address] Dr. Eliecer Das ALT [Catalytic activity/Vol] 27 U/L Normal 14-59 [facility] Comment on above: Performed By: #### B [email or web address] #### [facility] [address] [place] [address] Dr. Eliecer Das Anion gap [Moles/Vol] 9.6 mmol/L Normal [facility] Comment on above: Performed By: #### B [id number] #### [facility] [address] [place] [address] Dr. Eliecer Das AST [Catalytic activity/Vol] 38 U/L Critically high 15 -37 [facility] Comment on above: Performed By: #### B [id number] #### [facility] [address] [place] [address] Dr. Eliecer Das Bilirubin [Mass/Vol] 1.0 mg/dL Normal 0.2-1.0 [facility] Comment on above: Performed By: #### B [id number] #### [facility] [address] [place] [address] Dr. Eliecer Das Calcium [Mass/Vol] 9.0 mg/dL Normal 8.5-10.1 [facility] Comment on above: Performed By: #### B [id number] #### [facility] [address] [address] [address] Eliecer Das Chloride [Moles/Vol] 104 mmol/L Normal 98-107 [facility] Comment on above: Performed By: #### B [id number] #### [facility] [address] [place] [address] Dr. Eliecer Das CO2 [Moles/Vol] 28.9 mmol/L Normal 21.0-32.0 [facility] Comment on above: Performed By: #### B [id number] #### [facility] [address] [place] [address] Dr. Eliecer Das Creatinine [Mass/Vol] 0.85 mg/dL Normal 0.55-1.02 [facility] Comment on above: Performed By: #### B LDCX1 #### [facility] [address] [place] [address] Dr. Eliecer Das EGFR-AF COLOMBIAN >60 Normal >=60 [facility] Comment on above: Performed By: #### B [id number] #### [facility] [address] [place] [address] Dr. Eliecer Das EGFR-NON AF COLOMBIAN >60 Normal >=60 [facility] Comment on above: Performed By: #### B [email or web address] #### [facility] [address] [place] [address] Dr. Eliecer Das Globulin (S) [Mass/Vol] 3.9 g/dL Normal [facility] Comment on above: Performed By: #### B LDCX1 #### [facility] [address] [place] [address] Dr. Eliecer Das Glucose [Mass/Vol] 132 mg/dL Critically high 74-106 [facility] Comment on above: Performed By: #### B [id number] #### [facility] [address] [place] [address] Dr. Eliecer Das Potassium [Moles/Vol] 4.5 mmol/L Normal 3.5-5.1 [facility] Comment on above: Performed By: #### B LDCX1 #### [facility] [address] [place] [address] Dr. Eliecer Das Protein [Mass/Vol] 6.0 g/dL Critically low 6.4-8.2 [facility] Comment on above: Performed By: #### B [id number] #### [facility] [address] [place] [address] Dr. Eliecer Das Sodium [Moles/Vol] 138 mmol/L Normal 136-145 [facility] Comment on above: Performed By: #### B [id number] #### [facility] [address] [place] [address] Dr. Eliecer Das Urea nitrogen [Mass/Vol] 14.0 mg/dL Normal 7.0-18.0 [facility] Comment on above: Performed By: #### B [id number] #### [facility] [address] [place] [address] Dr. Eliecer Das Urea nitrogen/Creatinine [Mass ratio] 16.5 mg/mg Normal [facility] Comment on above: Performed By: #### B [id number] #### [facility] [address] [place] [address] Dr. Eliecer Das CBC AUTO DIFFon 01-27-2023 BASO # 0.1 103/ul Normal 0.0-0.1 [facility] Comment on above: Performed By: #### B [id number] #### [facility] [address] [place] [address] Dr. Eliecer Das Basophils/100 WBC (Bld) 1.4 % Normal 0.2-2.0 [facility] Comment on above: Performed By: #### B [id number] #### [facility] [address] [address] [address] Eliecer Das EO # 0.3 103/ul Normal 0.0-0.7 [facility] Comment on above: Performed By: #### B LDCX1 #### [facility] [address] [place] [address] Dr. Eliecer Das Eosinophils/100 WBC (Bld) 4.0 % Normal 0.9-7.0 [facility] Comment on above: Performed By: #### B LDCX1 #### [facility] [address] [place] [address] Dr. Eliecer Das Erythrocyte distribution wid th (RBC) [Ratio] 19.6 % Critically high 11.0-15.0 [facility] Comment on above: Performed By: #### B [id number] #### [facility] [address] [place] [address] Dr. Eliecer Das Hematocrit (Bld) [Volume fraction] 34.4 % Critically low 36.0-48.0 [facility] Comment on above: Performed By: #### B [id number] #### [facility] [address] [place] [address] Dr. Eliecer Das Hemoglobin (Bld) [Mass/Vol] 12.6 g/dL Normal 12.0-16. 0 [facility] Comment on above: Performed By: #### B [id number] #### [facility] [address] [place] [address] Dr. Eliecer Das IG # 0.07 10e3/ul Critically high 0.00-0.03 [facility] Comment on above: Performed By: #### B LDCX1 #### [facility] [address] [place] [address] Dr. Eliecer Das IG % 1.1 % Critically high 0.0-0.5 [facility] Comment on above: Performed By: #### B [id number] #### [facility] [address] [place] [address] Dr. Eliecer Das LYMPH # 2.0 103/ul Normal 1.2-3.8 [facility] Comment on above: Performed By: #### B LDCX1 #### [facility] [address] [place] [address] Dr. Eliecer Das Lymphocytes/100 WBC (Bld) 31.4 % Normal 20.5-60.0 [facility] Comment on above: Performed By: #### B [email or web address] #### [facility] [address] [place] [address] Dr. Eliecer Das MANUAL DIFF REQ NO Normal [facility] Comment on above: Performed By: #### B LDCX1 #### [facility] [address] [place] [address] Dr. Eliecer Das MCH (RBC) [Entitic mass] 38.0 pg Critically high 26.7-3 4.0 [facility] Comment on above: Performed By: #### B [email or web address] #### [facility] [address] [place] [address] Dr. Eliecer Das MCHC (RBC) [Mass/Vol] 36.6 g/dL Critically high 29.9-35.2 [facility] Comment on above: Performed By: #### B [id number] #### [facility] [address] [place] [address] Dr. Eliecer Das MCV (RBC) [Entitic vol] 103.6 fL Critically high 81.0-99 .0 [facility] Comment on above: Performed By: #### B [email or web address] #### [facility] [address] [place] [address] Dr. Eliecer Das MONO # 0.8 103/ul Normal 0.3-0.8 [facility] Comment on above: Performed By: #### B LDCX1 #### [facility] [address] [place] [address] Dr. Eliecer Das Monocytes/100 WBC (Bld) 12.5 % Critically high 1.7-12. 0 [facility] Comment on above: Performed By: #### B LDCX1 #### [facility] [address] [place] [address] Dr. Eliecer Das NEUT # 3.2 103/ul Normal 1.4-6.5 [facility] Comment on above: Performed By: #### B LDCX1 #### [facility] [address] [place] [address] Dr. Eliecer Das Neutrophils/100 WBC (Bld) 49.6 % Normal 43.0-75.0 [facility] Comment on above: Performed By: #### B LDCX1 #### [facility] [address] [place] [address] Dr. Eliecer Das Platelet mean volume (Bld) [Entitic vol] 9.5 fL Normal 9.5-13.5 [facility] Comment on above: Performed By: #### B LDCX1 #### [facility] [address] [place] [address] Dr. Eliecer Das PLT 242 103/ul Normal 150-450 [facility] Comment on above: Performed By: #### B [email or web address] #### [facility] [address] [place] [address] Dr. Eliecer Das RBC 3.32 106/ul Critically low 4.20-5.40 [facility] Comment on above: Performed By: #### B LDCX1 #### [facility] [address] [place] [address] Dr. Eliecer Das WBC 6.5 103/ul Normal 4.0-11.0 [facility] Comment on above: Performed By: #### B [email or web address] #### [facility] [address] [place] [address] Dr. Eliecer Das POINT OF CARE GLUCOSEon 01-14 Glucose [Mass/Vol] 127 mg/dL Critically high 74-106 [facility] Comment on above: Performed By: #### U RCX #### [facility] [address] [place] [address] Dr. Eliecer Das Glucose [Mass/Vol] 157 mg/dL Critically high 74-106 [facility] Comment on above: Performed By: #### P OCGLUC #### [facility] [address] [place] [address] Dr. Eliecer Das Glucose [Mass/Vol] 122 mg/dL Critically high 74-106 [facility] Comment on above: Performed By: #### C VDTBH #### [facility] [address] [place] [address] Dr. Eliecer Das Glucose [Mass/Vol] 148 mg/dL Critically high 74-106 [facility] Comment on above: Performed By: #### P OCGLUC #### [facility] [address] [place] [address] Dr. Eliecer Das PROF 14(COMP METB)on 023 Albumin [Mass/Vol] 2.2 g/dL Critically low 3.4-5.0 [facility] Comment on above: Performed By: #### C VDTBH #### [facility] [address] [place] [address] Dr. Eliecer Das Albumin/Globulin [Mass ratio] 0.6 {ratio} Normal [facility] Comment on above: Performed By: #### C VDTBH #### [facility] [address] [place] [address] Dr. Eliecer Das ALP [Catalytic activity/Vol] 75 U/L Normal 46-116 [facility] Comment on above: Performed By: #### C VDTBH #### [facility] [address] [place] [address] Dr. Eliecer Das ALT [Catalytic activity/Vol] 28 U/L Normal 14-59 [facility] Comment on above: Performed By: #### C VDTBH #### [facility] [address] [place] [address] Dr. Eliecer Das Anion gap [Moles/Vol] 10.9 mmol/L Normal [facility] Comment on above: Performed By: #### C VDTBH #### [facility] [address] [place] [address] Dr. Eliecer Das AST [Catalytic activity/Vol] 42 U/L Critically high 15 -37 [facility] Comment on above: Performed By: #### C VDTBH #### [facility] [address] [place] [address] Dr. Eliecer Das Bilirubin [Mass/Vol] 1.1 mg/dL Critically high 0.2-1.0 [facility] Comment on above: Performed By: #### C VDTBH #### [facility] [address] [place] [address] Dr. Eliecer Das Calcium [Mass/Vol] 8.9 mg/dL Normal 8.5-10.1 [facility] Comment on above: Performed By: #### C VDTBH #### [facility] [address] [place] [address] Dr. Eliecer Das Chloride [Moles/Vol] 103 mmol/L Normal 98-107 [facility] Comment on above: Performed By: #### C VDTBH #### [facility] [address] [place] [address] Dr. Eliecer Das CO2 [Moles/Vol] 30.2 mmol/L Normal 21.0-32.0 [facility] Comment on above: Performed By: #### C VDTBH #### [facility] [address] [place] [address] Dr. Eliecer Das Creatinine [Mass/Vol] 1.04 mg/dL Critically high 0.55-1.02 [facility] Comment on above: Performed By: #### C VDTBH #### [facility] [address] [place] [address] Dr. Eliecer Das EGFR-AF COLOMBIAN >60 Normal >=60 [facility] Comment on above: Performed By: #### C VDTBH #### [facility] [address] [place] [address] Dr. Eliecer Das EGFR-NON AF COLOMBIAN 50 mL/min/1.73m2 Critically low >=60 [facility] Comment on above: Performed By: #### C VDTBH #### [facility] [address] [place] [address] Dr. Eliecer Das Globulin (S) [Mass/Vol] 4.0 g/dL Normal [facility] Comment on above: Performed By: #### C VDTBH #### [facility] [address] [place], [place] [address] Dr. Eliecer Das Glucose [Mass/Vol] 149 mg/dL Critically high 74-106 [facility] Comment on above: Performed By: #### C VDTBH #### [facility] [address] [place] [address] Dr. Eliecer Das Potassium [Moles/Vol] 4.1 mmol/L Normal 3.5-5.1 [facility] Comment on above: Performed By: #### C VDTBH #### [facility] [address] [place] [address] Dr. Eliecer Das Protein [Mass/Vol] 6.2 g/dL Critically low 6.4-8.2 [facility] Comment on above: Performed By: #### C VDTBH #### [facility] [address] [place] [address] Dr. Eliecer Das Sodium [Moles/Vol] 140 mmol/L Normal 136-145 [facility] Comment on above: Performed By: #### C VDTBH #### [facility] [address] [place] [address] Dr. Eliecer Das Urea nitrogen [Mass/Vol] 17.0 mg/dL Normal 7.0-18.0 [facility] Comment on above: Performed By: #### C VDTBH #### [facility] [address] [place] [address] Dr. Eliecer Das Urea nitrogen/Creatinine [Mass ratio] 16.3 mg/mg Normal [facility] Comment on above: Performed By: #### C VDTBH #### [facility] [address] [place] [address] Dr. Eliecer Das CBC AUTO DIFFon 01-26-2023 BASO # 0.1 103/ul Normal 0.0-0.1 [facility] Comment on above: Performed By: #### B LDCX2 #### [facility] [address] [place] [address] Dr. Eliecer Das Basophils/100 WBC (Bld) 1.0 % Normal 0.2-2.0 [facility] Comment on above: Performed By: #### B LDCX2 #### [facility] [address] [place] [address] Dr. Eliecer Das EO # 0.2 103/ul Normal 0.0-0.7 [facility] Comment on above: Performed By: #### B LDCX2 #### [facility] [address] [place] [address] Dr. Eliecer Das Eosinophils/100 WBC (Bld) 3.8 % Normal 0.9-7.0 [facility] Comment on above: Performed By: #### B LDCX2 #### [facility] [address] [place] [address] Dr. Eliecer Das Erythrocyte distribution wid th (RBC) [Ratio] 16.4 % Critically high 11.0-15.0 [facility] Comment on above: Performed By: #### B LDCX2 #### [facility] [address] [place] [address] Dr. Eliecer Das Hematocrit (Bld) [Volume fraction] 35.9 % Critically low 36.0-48.0 [facility] Comment on above: Performed By: #### B LDCX2 #### [facility] [address] [place] [address] Dr. Eliecer Das Hemoglobin (Bld) [Mass/Vol] 12.3 g/dL Normal 12.0-16. 0 [facility] Comment on above: Performed By: #### B LDCX2 #### [facility] [address] [place] [address] Dr. Eliecer Das IG # 0.04 10e3/ul Critically high 0.00-0.03 [facility] Comment on above: Performed By: #### B LDCX2 #### [facility] [address] [place] [address] Dr. Eliecer Das IG % 0.7 % Critically high 0.0-0.5 [facility] Comment on above: Performed By: #### B LDCX2 #### [facility] [address] [place] [address] Dr. Eliecer Das LYMPH # 2.1 103/ul Normal 1.2-3.8 [facility] Comment on above: Performed By: #### B LDCX2 #### [facility] [address] [place] [address] Dr. Eliecer Das Lymphocytes/100 WBC (Bld) 35.1 % Normal 20.5-60.0 [facility] Comment on above: Performed By: #### B LDCX2 #### [facility] [address] [place] [address] Dr. Eliecer Das MANUAL DIFF REQ NO Normal [facility] Comment on above: Performed By: #### B LDCX2 #### [facility] [address] [place] [address] Dr. Eliecer Das MCH (RBC) [Entitic mass] 34.5 pg Critically high 26.7-3 4.0 [facility] Comment on above: Performed By: #### B LDCX2 #### [facility] [address] [place] [address] Dr. Eliecer Das MCHC (RBC) [Mass/Vol] 34.3 g/dL Normal 29.9-35.2 [facility] Comment on above: Performed By: #### B LDCX2 #### [facility] [address] [place] [address] Dr. Eliecer Das MCV (RBC) [Entitic vol] 100.6 fL Critically high 81.0-99 .0 [facility] Comment on above: Performed By: #### B LDCX2 #### [facility] [address] [place] [address] Dr. Eliecer Das MONO # 0.6 103/ul Normal 0.3-0.8 [facility] Comment on above: Performed By: #### B LDCX2 #### [facility] [address] [place] [address] Dr. Eliecer Das Monocytes/100 WBC (Bld) 10.4 % Normal 1.7-12.0 [facility] Comment on above: Performed By: #### B LDCX2 #### [facility] [address] [place] [address] Dr. lEiecer Das NEUT # 2.9 103/ul Normal 1.4-6.5 [facility] Comment on above: Performed By: #### B LDCX2 #### [facility] [address] [address] [address] Eliecer Das Neutrophils/100 WBC (Bld) 49.0 % Normal 43.0-75.0 [facility] Comment on above: Performed By: #### B LDCX2 #### [facility] [address] [address] [address] Eliecer Das Platelet mean volume (Bld) [Entitic vol] 9.5 fL Normal 9.5-13.5 [facility] Comment on above: Performed By: #### B LDCX2 #### [facility] [address] [place] [address] Dr. Eliecer Das PLT 260 103/ul Normal 150-450 [facility] Comment on above: Performed By: #### B LDCX2 #### [facility] [address] [place] [address] Dr. Eliecer Das RBC 3.57 106/ul Critically low 4.20-5.40 [facility] Comment on above: Performed By: #### B LDCX2 #### [facility] [address] [place] [address] Dr. Eliecer Das WBC 6.0 103/ul Normal 4.0-11.0 [facility] Comment on above: Performed By: #### B LDCX2 #### [facility] [address] [place] [address] Dr. Eliecer Das POINT OF CARE GLUCOSEon 01-14 Glucose [Mass/Vol] 217 mg/dL Critically high 74-106 [facility] Comment on above: Performed By: #### B LDCX1 #### [facility] [address] [place] [address] Dr. Eliecer Das Glucose [Mass/Vol] 149 mg/dL Critically high 74-106 [facility] Comment on above: Performed By: #### P OCGLUC #### [facility] [address] [address] [address] Eliecer Das Glucose [Mass/Vol] 126 mg/dL Critically high 74-[address] [facility] Comment on above: Performed By: #### P OCGLUC #### [facility] [address] [address] [address] lEiecer Das PROF 14(COMP METB)on 023 Albumin [Mass/Vol] 2.2 g/dL Critically low 3.4-5.0 [facility] Comment on above: Performed By: #### B LDCX2 #### [facility] [address] [place] [address] Dr. Eliecer Das Albumin/Globulin [Mass ratio] 0.6 {ratio} Normal [facility] Comment on above: Performed By: #### B LDCX2 #### [facility] [address] [place] [address] Dr. Eliecer Das ALP [Catalytic activity/Vol] 71 U/L Normal 46-116 [facility] Comment on above: Performed By: #### B [id number] #### [facility] [address] [place] [address] Dr. Eliecer Das ALT [Catalytic activity/Vol] 25 U/L Normal 14-59 [facility] Comment on above: Performed By: #### B LDCX2 #### [facility] [address] [place] [address] Dr. Eliecer Das Anion gap [Moles/Vol] 8.1 mmol/L Normal [facility] Comment on above: Performed By: #### B LDCX2 #### [facility] [address] [place] [address] Dr. Eliecer Das AST [Catalytic activity/Vol] 40 U/L Critically high 15 -37 [facility] Comment on above: Performed By: #### B LDCX2 #### [facility] [address] [place] [address] Dr. Eliecer Das Bilirubin [Mass/Vol] 1.3 mg/dL Critically high 0.2-1.0 [facility] Comment on above: Performed By: #### B [id number] #### [facility] [address] [address] [address] Eliecer Das Calcium [Mass/Vol] 8.8 mg/dL Normal 8.5-10.1 [facility] Comment on above: Performed By: #### B LDCX2 #### [facility] [address] [address] [address] Eliecer Das Chloride [Moles/Vol] 106 mmol/L Normal 98-107 [facility] Comment on above: Performed By: #### B LDCX2 #### [facility] [address] [address] [address] Eliecer Das CO2 [Moles/Vol] 29.7 mmol/L Normal 21.0-32.0 [facility] Comment on above: Performed By: #### B LDCX2 #### [facility] [address] [place] [address] Dr. Eliecer Das Creatinine [Mass/Vol] 1.00 mg/dL Normal 0.55-1.02 [facility] Comment on above: Performed By: #### B LDCX2 #### [facility] [address] [address] [address] Eliecer Das EGFR-AF COLOMBIAN >60 Normal >=60 [facility] Comment on above: Performed By: #### B [id number] #### [facility] [address] [place] [address] Dr. Eliecer Das EGFR-NON AF COLOMBIAN 53 mL/min/1.73m2 Critically low >=60 [facility] Comment on above: Performed By: #### B LDCX2 #### [facility] [address] [address] [address] Eliecer Das Globulin (S) [Mass/Vol] 3.9 g/dL Normal [facility] Comment on above: Performed By: #### B LDCX2 #### [facility] [address] [address] [address] Eliecer Das Glucose [Mass/Vol] 139 mg/dL Critically high 74-106 [facility] Comment on above: Performed By: #### B [id number] #### [facility] [address] [place] [address] Dr. Eliecer Das Potassium [Moles/Vol] 3.8 mmol/L Normal 3.5-5.1 [facility] Comment on above: Performed By: #### B LDCX2 #### [facility] [address] [place] [address] Dr. Eliecer Das Protein [Mass/Vol] 6.1 g/dL Critically low 6.4-8.2 [facility] Comment on above: Performed By: #### B LDCX2 #### [facility] [address] [place] [address] Dr. Eliecer Das Sodium [Moles/Vol] 140 mmol/L Normal 136-145 [facility] Comment on above: Performed By: #### B LDCX2 #### [facility] [address] [place] [address] Dr. Eliecer Das Urea nitrogen [Mass/Vol] 14.0 mg/dL Normal 7.0-18.0 [facility] Comment on above: Performed By: #### B LDCX2 #### [facility] [address] [place] [address] Dr. Eliecer Das Urea nitrogen/Creatinine [Mass ratio] 14.0 mg/mg Normal [facility] Comment on above: Performed By: #### B LDCX2 #### [facility] [address] [place] [address] Dr. Eliecer Das CBC AUTO DIFFon 01-25-2023 BASO # 0.1 103/ul Normal 0.0-0.1 [facility] Comment on above: Performed By: #### B [email or web address] #### [facility] [address] [place] [address] Dr. Eliecer Das Basophils/100 WBC (Bld) 1.1 % Normal 0.2-2.0 [facility] Comment on above: Performed By: #### B [email or web address] #### [facility] [address] [place] [address] Dr. Eliecer Das EO # 0.2 103/ul Normal 0.0-0.7 [facility] Comment on above: Performed By: #### B [id number] #### [facility] [address] [place] [address] Dr. Eliecer Das Eosinophils/100 WBC (Bld) 4.4 % Normal 0.9-7.0 [facility] Comment on above: Performed By: #### B [id number] #### [facility] [address] [place] [address] Dr. Eliecer Das Erythrocyte distribution wid th (RBC) [Ratio] 17.3 % Critically high 11.0-15.0 [facility] Comment on above: Performed By: #### B [email or web address] #### [facility] [address] [place] [address] Dr. Eliecer Das Hematocrit (Bld) [Volume fraction] 35.3 % Critically low 36.0-48.0 [facility] Comment on above: Performed By: #### B [id number] #### [facility] [address] [place] [address] Dr. Eliecer Das Hemoglobin (Bld) [Mass/Vol] 12.6 g/dL Normal 12.0-16. 0 [facility] Comment on above: Performed By: #### B [email or web address] #### [facility] [address] [place] [address] Dr. Eliecer Das IG # 0.03 10e3/ul Normal 0.00-0.03 [facility] Comment on above: Performed By: #### B [id number] #### [facility] [address] [place] [address] Dr. Eliecer Das IG % 0.6 % Critically high 0.0-0.5 [facility] Comment on above: Performed By: #### B [id number] #### [facility] [address] [place] [address] Dr. Eliecer Das LYMPH # 2.0 103/ul Normal 1.2-3.8 [facility] Comment on above: Performed By: #### B [id number] #### [facility] [address] [place] [address] Dr. Eliecer Das Lymphocytes/100 WBC (Bld) 38.4 % Normal 20.5-60.0 [facility] Comment on above: Performed By: #### B [email or web address] #### [facility] [address] [place] [address] Dr. Eliecer Das MANUAL DIFF REQ NO Normal [facility] Comment on above: Performed By: #### B [email or web address] #### [facility] [address] [place] [address] Dr. Eliecer Das MCH (RBC) [Entitic mass] 36.0 pg Critically high 26.7-3 4.0 [facility] Comment on above: Performed By: #### B [email or web address] #### [facility] [address] [place] [address] Dr. Eliecer Das MCHC (RBC) [Mass/Vol] 35.7 g/dL Critically high 29.9-35.2 [facility] Comment on above: Performed By: #### B [id number] #### [facility] [address] [place] [address] Dr. Eliecer Das MCV (RBC) [Entitic vol] 100.9 fL Critically high 81.0-99 .0 [facility] Comment on above: Performed By: #### B [email or web address] #### [facility] [address] [place] [address] Dr. Eliecer Das MONO # 0.6 103/ul Normal 0.3-0.8 [facility] Comment on above: Performed By: #### B [email or web address] #### [facility] [address] [place] [address] Dr. Eliecer Das Monocytes/100 WBC (Bld) 11.1 % Normal 1.7-12.0 [facility] Comment on above: Performed By: #### B [email or web address] #### [facility] [address] [place] [address] Dr. Eliecer Das NEUT # 2.3 103/ul Normal 1.4-6.5 [facility] Comment on above: Performed By: #### B [email or web address] #### [facility] [address] [address] [address] Eliecer Das Neutrophils/100 WBC (Bld) 44.4 % Normal 43.0-75.0 [facility] Comment on above: Performed By: #### B [id number] #### [facility] [address] [address] [address] Eliecer Das Platelet mean volume (Bld) [Entitic vol] 9.5 fL Normal 9.5-13.5 [facility] Comment on above: Performed By: #### B LDCX1 #### [facility] [address] [address] [address] Eliecer Das PLT 264 103/ul Normal 150-450 [facility] Comment on above: Performed By: #### B [id number] #### [facility] [address] [place] [address] Dr. Eliecer Das RBC 3.50 106/ul Critically low 4.20-5.40 [facility] Comment on above: Performed By: #### B [id number] #### [facility] [address] [place] [address] Dr. Eliecer Das WBC 5.2 103/ul Normal 4.0-11.0 [facility] Comment on above: Performed By: #### B [email or web address] #### [facility] [address] [place] [address] Dr. Eliecer Das POINT OF CARE GLUCOSEon 01-14 Glucose [Mass/Vol] 189 mg/dL Critically high 74-106 [facility] Comment on above: Performed By: #### P OCGLUC #### [facility] [address] [place] [address] Dr. Eliecer Das Glucose [Mass/Vol] 69 mg/dL Critically low 74-106 [facility] Comment on above: Performed By: #### B [id number] #### [facility] [address] [place] [address] Dr. Eliecer Das Glucose [Mass/Vol] 220 mg/dL Critically high 74-106 [facility] Comment on above: Performed By: #### U RCX #### [facility] [address] [address] [address] Eliecer Das PROF 14(COMP METB)on 023 Albumin [Mass/Vol] 2.3 g/dL Critically low 3.4-5.0 [facility] Comment on above: Performed By: #### P OCGLUC #### [facility] [address] [address] [address] Eliecer Das Albumin/Globulin [Mass ratio] 0.6 {ratio} Normal [facility] Comment on above: Performed By: #### P OCGLUC #### [facility] [address] [address] [address] Eliecer Das ALP [Catalytic activity/Vol] 77 U/L Normal 46-116 [facility] Comment on above: Performed By: #### P OCGLUC #### [facility] [address] [address] [address] Eliecer Das ALT [Catalytic activity/Vol] 31 U/L Normal 14-59 [facility] Comment on above: Performed By: #### P OCGLUC #### [facility] [address] [address] [address] Eliecer Das Anion gap [Moles/Vol] 8.6 mmol/L Normal [facility] Comment on above: Performed By: #### P OCGLUC #### [facility] [address] [address] [address] Eliecer Das AST [Catalytic activity/Vol] 42 U/L Critically high 15 -37 [facility] Comment on above: Performed By: #### P OCGLUC #### [facility] [address] [address] [address] Eliecer Das Bilirubin [Mass/Vol] 1.8 mg/dL Critically high 0.2-1.0 [facility] Comment on above: Performed By: #### P OCGLUC #### [facility] [address] [address] [address] Eliecer Das Calcium [Mass/Vol] 8.7 mg/dL Normal 8.5-10.1 [facility] Comment on above: Performed By: #### P OCGLUC #### [facility] [address] [address] [address] Eliecer Das Chloride [Moles/Vol] 109 mmol/L Critically high 98-107 [facility] Comment on above: Performed By: #### P OCGLUC #### [facility] [address] [address] [address] Eliecer Das CO2 [Moles/Vol] 29.3 mmol/L Normal 21.0-32.0 [facility] Comment on above: Performed By: #### P OCGLUC #### [facility] [address] [address] [address] Eliecer Das Creatinine [Mass/Vol] 0.86 mg/dL Normal 0.55-1.02 [facility] Comment on above: Performed By: #### P OCGLUC #### [facility] [address] [address] [address] Eliecer Das EGFR-AF COLOMBIAN >60 Normal >=60 [facility] Comment on above: Performed By: #### P OCGLUC #### [facility] [address] [address] [address] lEiecer Das EGFR-NON AF COLOMBIAN >60 Normal >=60 [facility] Comment on above: Performed By: #### P OCGLUC #### [facility] [address] [address] [address] Eliecer Das Globulin (S) [Mass/Vol] 3.9 g/dL Normal [facility] Comment on above: Performed By: #### P OCGLUC #### [facility] [address] [address] [address] Eliecer Das Glucose [Mass/Vol] 104 mg/dL Normal 74-106 [facility] Comment on above: Performed By: #### P OCGLUC #### [facility] [address] [address] [address] Eliecer Das Potassium [Moles/Vol] 3.9 mmol/L Normal 3.5-5.1 [facility] Comment on above: Performed By: #### P OCGLUC #### [facility] [address] [address] [address] Eliecer Das Protein [Mass/Vol] 6.2 g/dL Critically low 6.4-8.2 [facility] Comment on above: Performed By: #### P OCGLUC #### [facility] [address] [address] [address] Eliecer Das Sodium [Moles/Vol] 143 mmol/L Normal 136-145 [facility] Comment on above: Performed By: #### P OCGLUC #### [facility] [address] [address] [address] Eliecer Das Urea nitrogen [Mass/Vol] 12.0 mg/dL Normal 7.0-18.0 [facility] Comment on above: Performed By: #### P OCGLUC #### [facility] [address] [place] [address] Dr. Eliecer Das Urea nitrogen/Creatinine [Mass ratio] 14.0 mg/mg Normal [facility] Comment on above: Performed By: #### P OCGLUC #### [facility] [address] [place] [address] Dr. Eliecer Das BNPon 01-24-2023 Natriuretic peptide B (Bld) [Mass/Vol] 66.0 pg/mL Normal <=1,800.0 [facility] Comment on above: Performed By: #### C VDTBH #### [facility] [address] [place] [address] Dr. Eliecer Das CARDIAC MARQUIS ADMITon 023 CK [Catalytic activity/Vol] 21 U/L Critically low 26-1 92 [facility] Comment on above: Performed By: #### C VDTBH #### [facility] [address] [place] [address] Dr. Eliecer Das CK.MB [Mass/Vol] ng/mL Normal <=3.60 [facility] Comment on above: Performed By: #### C VDTBH #### [facility] [address] [place] [address] Dr. Eliecer Das HSTROP 7.1 pg/mL Normal 4.0-51.3 [facility] Comment on above: Result Comment: CUT- OFF POINTS HAVE BEEN ESTABLISHED BASED ON THE FOURTH UNIVERSAL DEFINITIONS OF MYOCARDIAL INFARCTION. THE UPPER REFERENCE LIMIT (URL) OF TROPONIN, DEFINED THE 99TH PERCENTILE OF cTnI DISTRIBUTION IN A REFERENCE POPULATION, HAS BEEN CONFIRMED THE DECISION THRESHOLD FOR [place] DIAGNOSIS. Performed By: #### C VDTBH #### [facility] [address] [place] [address] Dr. Eliecer Das CHEPE 23 ng/mL Normal 9-82 [facility] Comment on above: Performed By: #### C VDTBH #### [facility] [address] [place] [address] Dr. Eliecer Das CBC AUTO DIFFon 01-24-2023 BASO # 0.1 103/ul Normal 0.0-0.1 [facility] Comment on above: Performed By: #### B LDCX2 #### [facility] [address] [place] [address] Dr. Eliecer Das Basophils/100 WBC (Bld) 1.2 % Normal 0.2-2.0 [facility] Comment on above: Performed By: #### B LDCX2 #### [facility] [address] [place] [address] Dr. Eliecer Das EO # 0.2 103/ul Normal 0.0-0.7 [facility] Comment on above: Performed By: #### B LDCX2 #### [facility] [address] [place] [address] Dr. Eliecer Das Eosinophils/100 WBC (Bld) 3.4 % Normal 0.9-7.0 [facility] Comment on above: Performed By: #### B LDCX2 #### [facility] [address] [place] [address] Dr. Eliecer Das Erythrocyte distribution wid th (RBC) [Ratio] 17.3 % Critically high 11.0-15.0 [facility] Comment on above: Performed By: #### B LDCX2 #### [facility] [address] [place] [address] Dr. Eliecer Das Hematocrit (Bld) [Volume fraction] 39.8 % Normal 3 6.0-48.0 [facility] Comment on above: Performed By: #### B LDCX2 #### [facility] [address] [place] [address] Dr. Eliecer Das Hemoglobin (Bld) [Mass/Vol] 13.8 g/dL Normal 12.0-16. 0 [facility] Comment on above: Performed By: #### B LDCX2 #### [facility] [address] [place] [address] Dr. Eliecer Das IG # 0.04 10e3/ul Critically high 0.00-0.03 [facility] Comment on above: Performed By: #### B LDCX2 #### [facility] [address] [place] [address] Dr. Eliecer Das IG % 0.7 % Critically high 0.0-0.5 [facility] Comment on above: Performed By: #### B LDCX2 #### [facility] [address] [place] [address] Dr. Eliecer Das LYMPH # 1.9 103/ul Normal 1.2-3.8 [facility] Comment on above: Performed By: #### B LDCX2 #### [facility] [address] [place] [address] Dr. Eliecer Das Lymphocytes/100 WBC (Bld) 33.7 % Normal 20.5-60.0 [facility] Comment on above: Performed By: #### B LDCX2 #### [facility] [address] [place] [address] Dr. Eliecer Das MANUAL DIFF REQ NO Normal [facility] Comment on above: Performed By: #### B LDCX2 #### [facility] [address] [place] [address] Dr. Eliecer Das MCH (RBC) [Entitic mass] 34.7 pg Critically high 26.7-3 4.0 [facility] Comment on above: Performed By: #### B LDCX2 #### [facility] [address] [place] [address] Dr. Eliecer Das MCHC (RBC) [Mass/Vol] 34.7 g/dL Normal 29.9-35.2 [facility] Comment on above: Performed By: #### B LDCX2 #### [facility] [address] [place] [address] Dr. Eliecer Das MCV (RBC) [Entitic vol] 100.0 fL Critically high 81.0-99 .0 [facility] Comment on above: Performed By: #### B LDCX2 #### [facility] [address] [place] [address] Dr. Eliecer Das MONO # 0.5 103/ul Normal 0.3-0.8 [facility] Comment on above: Performed By: #### B LDCX2 #### [facility] [address] [place] [address] Dr. Eliecer Das Monocytes/100 WBC (Bld) 8.3 % Normal 1.7-12.0 [facility] Comment on above: Performed By: #### B LDCX2 #### [facility] [address] [place] [address] Dr. Eliecer Das NEUT # 3.0 103/ul Normal 1.4-6.5 [facility] Comment on above: Performed By: #### B LDCX2 #### [facility] [address] [place] [address] Dr. Eliecer Das Neutrophils/100 WBC (Bld) 52.7 % Normal 43.0-75.0 [facility] Comment on above: Performed By: #### B LDCX2 #### [facility] [address] [place] [address] Dr. Eliecer Das Platelet mean volume (Bld) [Entitic vol] 9.3 fL Critically low 9.5-13.5 [facility] Comment on above: Performed By: #### B LDCX2 #### [facility] [address] [place] [address] Dr. Eliecer Das PLT 293 103/ul Normal 150-450 [facility] Comment on above: Performed By: #### B LDCX2 #### [facility] [address] [place] [address] Dr. Eliecer Das RBC 3.98 106/ul Critically low 4.20-5.40 [facility] Comment on above: Performed By: #### B LDCX2 #### [facility] [address] [place] [address] Dr. Eliecer Das WBC 5.7 103/ul Normal 4.0-11.0 [facility] Comment on above: Performed By: #### B LDCX2 #### [facility] [address] [place] [address] Dr. Eliecer Das CULTURE BLOODon 01-24-2023 Microscopic examination of blood, culture Culture Observations: NO GROWTH AT 5 DAYS. Normal [facility] Comment on above: Performed By: #### B LDCX2 #### [facility] [address] [place] [address] Dr. Eliecer Das Microscopic examination of blood, culture Culture Observations: NO GROWTH AT 5 DAYS. Normal [facility] Comment on above: Performed By: #### B LDCX1 #### [facility] [address] [place] [address] Dr. Eliecer Das CULTURE URINEon 01-24-2023 CULTURE URINE Culture Observations : NO GROWTH. Normal [facility] Comment on above: Performed By: #### U RCX #### [facility] [address] [place] [address] Dr. Eliecer Das [facility] SARS-CoV-2 (COVID-19) RNA PELON+probe Ql (Unsp spec) Not detected Normal NOT DETECTED [facility] Comment on above: Performed By: #### P OCGLUC #### [facility] [address] [place] [address] Dr. Eliecer Das ER URINE PROFILEon 3 Bilirubin Ql (U) Negative Normal NEGATIVE The [facility] Comment on above: Performed By: #### B LDCX2 #### [facility] [address] [place] [address] Dr. Eliecer Das Clarity (U) CLEAR Normal CLEAR [facility] Comment on above: Performed By: #### B LDCX2 #### [facility] [address] [place] [address] Dr. Eliecer Das Color (U) YELLOW Normal YELLOW [facility] Comment on above: Performed By: #### B LDCX2 #### [facility] [address] [place] [address] Dr. Eliecer Das ERUAHD A micrscopic examina tion will be performed if indicated. Normal [facility] Comment on above: Performed By: #### B LDCX2 #### [facility] [address] [place] [address] Dr. Eliecer Das Glucose Ql (U) Negative Normal NEGATIVE The [facility] Comment on above: Performed By: #### B LDCX2 #### [facility] [address] [place] [address] Dr. Eliecer Das Hemoglobin Ql (U) LARGE Abnormal NEGATIVE [facility] Comment on above: Performed By: #### B LDCX2 #### [facility] [address] [place] [address] Dr. Eliecer Das Ketones Ql (U) Negative Normal NEGATIVE [facility] Comment on above: Performed By: #### B LDCX2 #### [facility] [address] [place] [address] Dr. Eliecer Das LEUKOCYTES TRACE Abnormal NEGATIVE [facility] Comment on above: Performed By: #### B LDCX2 #### [facility] [address] [place] [address] Dr. Eliecer Das Nitrite Ql (U) Negative Normal NEGATIVE [facility] Comment on above: Performed By: #### B LDCX2 #### [facility] [address] [place] [address] Dr. Eliecer Das pH (U) 6.5 [pH] Normal 5-9 [facility] Comment on above: Performed By: #### B LDCX2 #### [facility] [address] [place] [address] Dr. Eliecer Das SPEC GRAVITY 1.020 Normal 1.005-<=1.025 [facility] Comment on above: Performed By: #### B LDCX2 #### [facility] [address] [place] [address] Dr. Eliecer Das UA PROTEIN Negative Normal NEGATIVE/ TRACE [facility] Comment on above: Performed By: #### B LDCX2 #### [facility] [address] [place] [address] Dr. Eliecer Das UR MICRO IND INDICATED Normal [facility] Comment on above: Performed By: #### B ELLECX2 #### [facility] [address] [place] [address] Dr. Eliecer Das Urobilinogen Qn (U) 2.0 {Narinder'U}/dL Abnormal 0.2 - 1. 0 [facility] Comment on above: Performed By: #### B LDCX2 #### [facility] [address] [place] [address] Dr. Eliecer Das POINT OF CARE GLUCOSEon 01-14 Glucose [Mass/Vol] 153 mg/dL Critically high 74-106 [facility] Comment on above: Performed By: #### B ELLECX2 #### [facility] [address] [place] [address] Dr. Eliecer Das Glucose [Mass/Vol] 176 mg/dL Critically high 74-106 [facility] Comment on above: Performed By: #### B LDCX2 #### [facility] [address] [place] [address] Dr. Eliecer Das PROF 14(COMP METB)on 023 Albumin [Mass/Vol] 2.7 g/dL Critically low 3.4-5.0 [facility] Comment on above: Performed By: #### C VDTBH #### [facility] [address] [place] [address] Dr. Eliecer Das Albumin/Globulin [Mass ratio] 0.6 {ratio} Normal [facility] Comment on above: Performed By: #### C VDTBH #### [facility] [address] [address] [address] Eliecer Das ALP [Catalytic activity/Vol] 91 U/L Normal 46-116 [facility] Comment on above: Performed By: #### C VDTBH #### [facility] [address] [address] [address] Eliecer Das ALT [Catalytic activity/Vol] 36 U/L Normal 14-59 [facility] Comment on above: Performed By: #### C VDTBH #### [facility] [address] [address] [address] Eliecer Das Anion gap [Moles/Vol] 10.8 mmol/L Normal [facility] Comment on above: Performed By: #### C VDTBH #### [facility] [address] [place] [address] Dr. Eliecer Das AST [Catalytic activity/Vol] 53 U/L Critically high 15 -37 [facility] Comment on above: Performed By: #### C VDTBH #### [facility] [address] [place] [address] Dr. Eliecer Das Bilirubin [Mass/Vol] 1.3 mg/dL Critically high 0.2-1.0 [facility] Comment on above: Performed By: #### C VDTBH #### [facility] [address] [place] [address] Dr. Eliecer Das Calcium [Mass/Vol] 9.2 mg/dL Normal 8.5-10.1 [facility] Comment on above: Performed By: #### C VDTBH #### [facility] [address] [place] [address] Dr. Eliecer Das Chloride [Moles/Vol] 108 mmol/L Critically high 98-107 [facility] Comment on above: Performed By: #### C VDTBH #### [facility] [address] [address] [address] Eliecer Das CO2 [Moles/Vol] 29.4 mmol/L Normal 21.0-32.0 [facility] Comment on above: Performed By: #### C VDTBH #### [facility] [address] [address] [address] Eliecer Das Creatinine [Mass/Vol] 0.92 mg/dL Normal 0.55-1.02 [facility] Comment on above: Performed By: #### C VDTBH #### [facility] [address] [address] [address] Eliecer Das EGFR-AF COLOMBIAN >60 Normal >=60 [facility] Comment on above: Performed By: #### C VDTBH #### [facility] [address] [address] [address] Eliecer Das EGFR-NON AF COLOMBIAN 58 mL/min/1.73m2 Critically low >=60 [facility] Comment on above: Performed By: #### C VDTBH #### [facility] [address] [address] [address] Eliecer Das Globulin (S) [Mass/Vol] 4.5 g/dL Normal [facility] Comment on above: Performed By: #### C VDTBH #### [facility] [address] [address] [address] Eliecer Das Glucose [Mass/Vol] 120 mg/dL Critically high 74-106 [facility] Comment on above: Performed By: #### C VDTBH #### [facility] [address] [address] [address] Eliecer Das Potassium [Moles/Vol] 4.2 mmol/L Normal 3.5-5.1 [facility] Comment on above: Performed By: #### C VDTBH #### [facility] [address] [address] [address] Eliecer Das Protein [Mass/Vol] 7.2 g/dL Normal 6.4-8.2 [facility] Comment on above: Performed By: #### C VDTBH #### [facility] [address] [address] [address] Eliecer Das Sodium [Moles/Vol] 144 mmol/L Normal 136-145 [facility] Comment on above: Performed By: #### C VDTBH #### [facility] [address] [place] [address] Dr. Eliecer Das Urea nitrogen [Mass/Vol] 15.0 mg/dL Normal 7.0-18.0 [facility] Comment on above: Performed By: #### C VDTBH #### [facility] [address] [place] [address] Dr. Eliecer Das Urea nitrogen/Creatinine [Mass ratio] 16.3 mg/mg Normal [facility] Comment on above: Performed By: #### C VDTBH #### [facility] [address] [place] [address] Dr. Eliecer Das PROTIMEon 01-24-2023 INR Coag (PPP) [Relative time] 1.03 {INR} Normal [facility] Comment on above: Performed By: #### B LDCX1 #### [facility] [address] [place] [address] Dr. Eliecer Das INR GUIDELINES SEE BELOW Normal [facility] Comment on above: Result Comment: KAITY RED INR: 2.0 - 3.0 CONDITIONS NOT LISTED BELOW 2.5 - 3.5 FOR PROSTHETIC HEART VALVE REPLACEMENT 2.5 - 3.5 RECURRENT THROMBOSIS Performed By: #### B [id number] #### [facility] [address] [place] [address] Dr. Eliecer Das PT Coag (PPP) [Time] 10.9 s Normal 9.0-11.6 [facility] Comment on above: Performed By: #### B LDCX1 #### [facility] [address] [place] [address] Dr. Eliecer Das PTTon 01-24-2023 aPTT Coag (Bld) [Time] 26.4 s Normal 22.3-36.2 [facility] Comment on above: Performed By: #### B LDCX1 #### [facility] [address] [place] [address] Dr. Eliecer Das SYMPTOMATIC COVID-19 ANTIGEN on 01-24-2023 EUA Statement SEE BELOW Normal [facility] Comment on above: Result Comment: This test has not been FDA cleared or approved, but has been authorized by the FDA under an Emergency Use Authorization (EUA) for use by authorized laboratories certified under CLIA that meet the requirements to perform moderate or high complexity testing. This test has been authorized only for the detection of proteins from SARS-CoV-2, not for any other viruses or pathogens. The emergency use of this test is authorized for the duration of the declaration that circumstances exist justifying the authorization of emergency use of in vitro diagnostic tests for detection and/or diagnosis of Covid-19 under section 564(b)(1) of the Act, 21 U.S.C. 360bbb-3(b)(1), unless the declaration is terminated or authorization is revoked sooner. Performed By: #### B LDCX2 #### [place] [address] Dr[address] Eliecer Das SARS-CoV-2 (COVID-19) RNA NA A+probe Ql (Unsp spec) Negative Normal NEGATIVE [facility] pital Comment on above: Performed By: #### B LDCX2 #### [facility] [address] [place] [address] Dr. Eliecer Das URINE MICROSCOPIC ONLYon BACTERIA TRACE Abnormal NONE SEEN [facility] Comment on above: Performed By: #### B LDCX2 #### [place] [address] Dr[address] Eliecer Das Bacteria identified Cx Nom (U) INDICATED Normal [facility] Comment on above: Performed By: #### B LDCX2 #### [facility] [address] [place] [address] Dr. Eliecer Das CAST NONE SEEN Normal NONE SEEN [facility] Comment on above: Performed By: #### B LDCX2 #### [facility] [address] [place] [address] Dr. Eliecer Das Crystals LM Nom (Urine sed) NONE SEEN Normal NONE SEE N [facility] Comment on above: Performed By: #### B LDCX2 #### [facility] [address] [place] [address] Dr. Eliecer Das Epithelial cells LM Ql (Urine sed) FEW Abnormal N ONE SEEN /RARE [facility] Comment on above: Performed By: #### B LDCX2 #### [facility] [address] [address] [address] Eliecer Das MUCOUS NONE SEEN Normal NONE SEEN [facility] Comment on above: Performed By: #### B LDCX2 #### [facility] [address] [address] [address] Eliecer Das RBC 20-50 Abnormal 0-2 [facility] Comment on above: Performed By: #### B LDCX2 #### [facility] [address] [address] [address] Eliecer Das WBC 5-10 Abnormal NONE SEEN [facility] Comment on above: Performed By: #### B LDCX2 #### [facility] [address] [place] [address] Dr. Eliecer Das XR CHEST 1 Von 01-24-2023 XR CHEST 1 V EXAMINATION: XR CHES T 1 V HISTORY: Asthenia COMPARISON: 10/13/2022 TECHNIQUE: AP portable erect FINDINGS: LUNGS: Left basilar infiltrate obscuring the hemidiaphragm. The right lung is clear VASCULATURE: No increased pulmonary vasculature. PLEURA: No pneumothorax, effusion, or pleural thickening. CARDIAC: No cardiomegaly or cardiac silhouette abnormality. MEDIASTINUM: No visible mass or adenopathy. Aortic atherosclerosis BONES: Mild degenerative disc disease and spondylosis without visible acute abnormalities. OTHER: Negative. IMPRESSION: Moderate left basilar infiltrate Electronically authenticated by: BOBBY RAMACHANDRAN Date: 2023-01-24 11:06 Normal [facility] Urinalysis - AUTOMATEDon Appearance (U) CLEAR [employer] Other Bilirubin Ql (U) Negative [employer] Other Color (U) YELLOW [facility] Pr [employer] Other Glucose Ql (U) Negative [employer] Other Hemoglobin Ql (U) TRACE [place] [employer] Other Ketones Ql (U) Negative [employer] Other Leukocyte esterase Test stri p Ql (U) Negative [facility] Prof [employer] Other Nitrite Ql (U) Negative [place] [employer] Other pH (U) 6.5 [pH] [facility] Pr [employer] Other Protein Ql (U) Negative [place] [employer] Other Specific gravity (U) [Rel density] 1.030 [facility] [employer] Other Urobilinogen (U) [Mass/Vol] 1.0 mg/dL [facility] [employer] Other Urinalysis - AUTOMATED [facility] [employer] Other Urine Cultureon 01-17-2023 Bacteria identified Cx Nom (U) Reason for Exam Suspected urinary tract infection Urine 15,000 colonies/ml mixed bacterial skin contaminants 2 Days PERFORMED BY: [place] [address] PATHOLOGIST MERCHANDISING DIRECTOR CARLOS CHOUDHURY M.D. [facility] Comment on above: Performed By: #### C UU #### [address] Urine culture routineOrdered By: Brendon Momin on 01-17-2023 Bacteria identified Cx Nom (U) 2 Days [facility] Blood Urea Nitrogenon 2022 Urea nitrogen [Mass/Vol] 8 mg/dL Normal 7-25 [facility] Comment on above: Order Comment: Reaso n for Exam Dependent edema Performed By: #### C REAT, BUN #### [facility] [address] [place] [address] Creatinineon 01-03-2023 Creatinine [Mass/Vol] 0.77 mg/dL Normal 0.60-1.20 [facility] Comment on above: Order Comment: Reaso n for Exam Dependent edema Performed By: #### C REAT, BUN #### [facility] [address] [place] [address] [place] GFR/1.73 sq M.predicted MDRD (S/P/Bld) [Vol rate/Area] mL/min/{1.73_m2} Normal [facility] Comment on above: Order Comment: Reaso n for Exam Dependent edema Result Comment: PERF ORMED BY: [place] [address] PATHOLOGIST MERCHANDISING DIRECTOR CARLOS CHOUDHURY M.D. Performed By: #### C REAT, BUN #### [facility] [address] Creatinine [Mass/volume] in Serum or PlasmaOrdered By: Brendon Momin on 01-03-2023 Creatinine [Mass/Vol] 0.77 mg/dL 0.60-1.20 [facility] No Panel InformationOrdered By: Brendon Momin on 01-03-2023 Estimated GFR (CKD-EPI) > 60.0 mL/Min [facility] Creatinine Clearanc e (Chem N/A [facility] Urea nitrogen [Mass/volume] in Serum or PlasmaOrdered By: Brendon Momin on 01-03-2023 Urea nitrogen [Mass/Vol] 8 mg/dL 7-25 [facility] Urinalysis - AUTOMATEDon Appearance (U) CLEAR [employer] Other Bilirubin Ql (U) Negative [employer] Other Color (U) YELLOW [place] [facility] Other Glucose Ql (U) Negative [employer] Other Hemoglobin Ql (U) Negative [employer] Other Ketones Ql (U) Negative [employer] Other Leukocyte esterase Test strip Ql (U) TRACE [employer] Other Nitrite Ql (U) Positive [employer] Other pH (U) 6.0 [pH] [facility] Other Protein Ql (U) Negative [employer] Other Specific gravity (U) [Rel density] >=1.030 [place] [employer] Other Urobilinogen (U) [Mass/Vol] 1.0 E.U [employer] Other Urinalysis - AUTOMATED No rt [employer] Other Urine Cultureon 01-03-2023 Bacteria identified Cx Nom (U) ORGANISM: Escherichia coli (O:ESCCOL) [place] Count >100,000 Aerobic DALE Charge ([id number]) SUSCEPTIBILITY ORGANISM: O:ESCCOL ANTIBIOTIC INTERPRETATION DALE Amikacin S <16 Amoxacillin/K Clavulanate I 1616/8 Ampicillin R >16 Ampicillin/Sulbactam R >16 Aztreonam S <4 Cefazolin R >16 Cefepime S <2 Ceftazidime S <1 Ceftazidime/Avibactam S <4 Ceftolozane/Tazobactam S <2 Ceftriaxone S <1 Cefuroxime S 8 Ciprofloxacin R 1 Ertapenem S <0.5 Gentamicin S <2 Levofloxacin I 1 Meropenem S <1 Meropenem/Vaborbactam S <2 Nitrofurantoin S <32 Piperacillin/Tazobactam S <8 Tetracycline S <4 Tigecycline S <2 Tobramycin S <2 Trimethoprim/Sulfamethoxazole R >2 S = SUSCEPTIBLE I = INTERMEDIATE R = RESISTANT BLANK = DATA NOT AVAILABLE, OR DRUG NOT ADVISABLE OR TESTED R* = RESISTANCE DUE TO EXTENDED SPECTRUM BETA-LACTAMASES ESBL = EXTENDED SPECTRUM BETA-LACTAMASE TFG = THYMIDINE-DEPENDENT STRAIN TAINA = BETA-LACTAMASE POSITIVE IB = INDUCIBLE BETA-LACTAMASE. APPEARS IN PLACE OF 'S' WITH SPECIES KNOWN TO POSSESS INDUCIBLE BETA-LACTAMASES. POTENTIALLY THEY MAY BECOME RESISTANT TO ALL B-LACTAM DRUGS. PERFORMED BY: [address] [place] [address] PATHOLOGIST MERCHANDISING DIRECTOR CARLOS CHOUDHURY M.D. Normal [facility] Comment on above: Performed By: #### C UU #### [facility] [address] [place] [address] [place] A1C HEMOGLOBINon 12-06-2022 HbA1c (Bld) [Mass fraction] 6.5 % [employer] Other HbA1c (Bld) [Mass fraction]o n 12-06-2022 A1C HEMOGLOBIN [facility] Other CT chest wo conon 11-26-2022 CT chest wo con [facility] [place] [address] [place] [address] CT Scan Report Signed Patient: Salma Quan MR#: [id number] : 1935 Acct:[id number] Age/Sex: 87 / F ADM Date: 11/26/22 Loc: CT Room: Type: [facility] Attending Dr: MITZY Porter APRN Copies to: Staci Asencio APRN, ACNP-BC Ordering Provider: Staci Asencio APRN, ACNP-BC Date of Service: 11/26/22 CT/CT chest wo con: J84.9 CT CHEST WITHOUT IV CONTRAST: CLINICAL HISTORY: Cough. Abnormal CT. COMPARISON: CT chest 06/08/2022 TECHNIQUE: Spiral images were obtained through the chest without IV contrast. This CT exam was performed using one or more following dose reduction techniques: Automated exposure control, adjustment of the mA and/or kV according to patient size, or use of iterative reconstruction technique. FINDINGS: Mediastinum:For the calcification involving the thyroid gland unchanged. There is likely underlying nodules. Thoracic aorta appears normal in caliber. Pulmonary trunk appears nondilated. No pericardial effusion. No lymphadenopathy. The esophagus is grossly unremarkable. Lungs:Peripheral fibrotic changes without honeycombing, grossly similar to the prior study. No new consolidation, pneumothorax or pleural effusion. Abd:No acute findings. Soft tissues/Bones: Visualized soft tissues demonstrate no acute findings. Osseous structures demonstrate degenerative change. CT/CT chest wo con IMPRESSION: Fibrotic changes without honeycombing. Findings are grossly similar to the prior study. Impression dictated by: Christiano Cameron Jr., D.OKelly11/26/2022 3:56 PM Dictation Location: [place] [address] Transcribed By: [facility] 11/26/22 155 Dictated By: Christiano Cameron Jr, DO 11/26/22 1554 Signed By: 11/26/[address] [facility] CULTURE URINEon 10-16-2022 CULTURE URINE Isolate 1 Escherichia coli >100,000 cfu/mL of ORGANISM 1 Escherichia coli ANTIBIOTIC M.I.C RX STATUS Ampicillin >=32 R F Ampicillin/Sulbactam >=32 R F Piperacillin/Tazobactam >=128 R F Cefazolin >=64 R F Ceftazidime <=1 S F Ceftriaxone <=1 S F Ertapenem <=0.5 S F Imipenem <=0.25 S F Amikacin <=2 S F Gentamicin <=1 S F Tobramycin <=1 S F Ciprofloxacin <=0.25 S F Levofloxacin 0.5 S F Nitrofurantoin <=16 S F Trimethoprim/Sulfamethoxazole >=320 R F Normal [facility] Comment on above: Performed By: #### C VDTBH #### [facility] [address] [place] [address] Dr. Eliecer Das POINT OF CARE GLUCOSEon 09-18 Glucose [Mass/Vol] 269 mg/dL Critically high [address] [place] [address] Comment on above: Performed By: #### P OCGLUC #### [facility] [address] [place] [address] Dr. Eliecer Das Glucose [Mass/Vol] 100 mg/dL Normal 74-106 [facility] Comment on above: Performed By: #### B LDCX1 #### [facility] [address] [address] [address] Eliecer Das POINT OF CARE GLUCOSEon 09-17 Glucose [Mass/Vol] 147 mg/dL Critically high -[address] [place] [address] Comment on above: Performed By: #### U RCX #### [facility] [address] [address] [address] Eliecer Das Glucose [Mass/Vol] 189 mg/dL Critically high -106 [facility] Comment on above: Performed By: #### P OCGLUC #### [facility] [address] [address] [address] Eliecer Das Glucose [Mass/Vol] 421 mg/dL Critically high 74-106 [facility] Comment on above: Performed By: #### B LDCX2 #### [facility] [address] [address] [address] Eliecer Das Glucose [Mass/Vol] 156 mg/dL Critically high 74-106 [facility] Comment on above: Performed By: #### P OCGLUC #### [facility] [address] [address] [address] Eliecer Das Glucose [Mass/Vol] 111 mg/dL Critically high 74-106 [facility] Comment on above: Performed By: #### B LDCX2 #### [facility] [address] [place] [address] Dr. Eliecer Das Glucose [Mass/Vol] 209 mg/dL Critically high 74-106 [facility] Comment on above: Performed By: #### B LDCX1 #### [facility] [address] [place] [address] Dr. Eliecer Das Glucose [Mass/Vol] 102 mg/dL Normal 74-106 [facility] Comment on above: Performed By: #### U RCX #### [facility] [address] [place] [address] Dr. Eliecer Das CBC AUTO DIFFon 10-13-2022 BASO # 0.1 103/ul Normal 0.0-0.1 [facility] Comment on above: Performed By: #### B LDCX1 #### [facility] [address] [place] [address] Dr. Eliecer Das Basophils/100 WBC (Bld) 1.4 % Normal 0.2-2.0 [facility] Comment on above: Performed By: #### B LDCX1 #### [facility] [address] [place] [address] Dr. Eliecer Das EO # 0.1 103/ul Normal 0.0-0.7 [facility] Comment on above: Performed By: #### B LDCX1 #### [facility] [address] [place] [address] Dr. Eliecer Das Eosinophils/100 WBC (Bld) 2.8 % Normal 0.9-7.0 [facility] Comment on above: Performed By: #### B LDCX1 #### [facility] [address] [place] [address] Dr. Eliecer Das Erythrocyte distribution wid th (RBC) [Ratio] 15.4 % Critically high 11.0-15.0 [facility] Comment on above: Performed By: #### B LDCX1 #### [facility] [address] [place] [address] Dr. Eliecer Das Hematocrit (Bld) [Volume fraction] 38.5 % Normal 3 6.0-48.0 [facility] Comment on above: Performed By: #### B LDCX1 #### [facility] [address] [place] [address] Dr. Eliecer Das Hemoglobin (Bld) [Mass/Vol] 14.1 g/dL Normal 12.0-16. 0 [facility] Comment on above: Performed By: #### B LDCX1 #### [facility] [address] [place] [address] Dr. Eliecer Das IG # 0.02 10e3/ul Normal 0.00-0.03 [facility] Comment on above: Performed By: #### B LDCX1 #### [facility] [address] [place] [address] Dr. Eliecer Das IG % 0.4 % Normal 0.0-0.5 [facility] ostal Comment on above: Performed By: #### B LDCX1 #### [facility] [address] [place] [address] Dr. Eliecer Das LYMPH # 1.2 103/ul Normal 1.2-3.8 [facility] Comment on above: Performed By: #### B LDCX1 #### [facility] [address] [place] [address] Dr. Eliecer Das Lymphocytes/100 WBC (Bld) 23.7 % Normal 20.5-60.0 [facility] Comment on above: Performed By: #### B LDCX1 #### [facility] [address] [place] [address] Dr. Eliecer Das MANUAL DIFF REQ NO Normal [facility] Comment on above: Performed By: #### B LDCX1 #### [facility] [address] [place] [address] Dr. Eliecer Das MCH (RBC) [Entitic mass] 33.5 pg Normal 26.7-34.0 [facility] Comment on above: Performed By: #### B LDCX1 #### [facility] [address] [place] [address] Dr. Eliecer Das MCHC (RBC) [Mass/Vol] 36.6 g/dL Critically high 29.9-35.2 [facility] Comment on above: Performed By: #### B LDCX1 #### [facility] [address] [place] [address] Dr. Eliecer Das MCV (RBC) [Entitic vol] 91.4 fL Normal 81.0-99.0 [facility] Comment on above: Performed By: #### B LDCX1 #### [facility] [address] [place] [address] Dr. Eliecer Das MONO # 0.5 103/ul Normal 0.3-0.8 [facility] Comment on above: Performed By: #### B LDCX1 #### [facility] [address] [place] [address] Dr. Eliecer Das Monocytes/100 WBC (Bld) 10.6 % Normal 1.7-12.0 [facility] Comment on above: Performed By: #### B LDCX1 #### [facility] [address] [place] [address] Dr. Eliecer Das NEUT # 3.0 103/ul Normal 1.4-6.5 [facility] ost[facility] Comment on above: Performed By: #### B LDCX1 #### [facility] [address] [place] [address] Dr. Eliecer Das Neutrophils/100 WBC (Bld) 61.1 % Normal 43.0-75.0 [facility] Comment on above: Performed By: #### B LDCX1 #### [facility] [address] [place] [address] Dr. Eliecer Das Platelet mean volume (Bld) [Entitic vol] 9.1 fL Critically low 9.5-13.5 [facility] pital Comment on above: Performed By: #### B LDCX1 #### [facility] [address] [place] [address] Dr. Eliecer Das PLT 278 103/ul Normal 150-450 [facility] Comment on above: Performed By: #### B LDCX1 #### [facility] [address] [place] [address] Dr. Eliecer Das RBC 4.21 106/ul Normal 4.20-5.40 [facility] Comment on above: Performed By: #### B LDCX1 #### [facility] [address] [place] [address] Dr. Eliecer Das WBC 5.0 103/ul Normal 4.0-11.0 [facility] Comment on above: Performed By: #### B LDCX1 #### [facility] [address] [place] [address] Dr. Eliecer Das [facility]17 SARS-CoV-2 (COVID-19) RNA PELON+probe Ql (Unsp spec) Not detected Normal NOT DETECTED [facility] Comment on above: Result Comment: When diagnostic testing is negative, the possibility of a false negative should be considered in the context of a patient's recent exposures and the presence of clinical signs and symptoms consistent with SARS-CoV-2. This test is not yet approved or cleared by the [place] FDA. When there are no FDA-approved or cleared tests available, and other criteria are met, FDA can make tests available under an emergency access mechanism called an Emergency Use Authorization (EUA). The EUA for this test is supported by the Manager Respiratory of Health and Human Service's declaration that circumstances exist to justify the emergency use of in vitro diagnostics for the detection and/or diagnosis of the virus that causes COVID-19. This EUA will remain in effect for the duration of the COVID-19 declaration justifying emergency of IVDs, unless it is terminated or revoked by the FDA (after which the test may no longer be used). Performed By: #### C VDTBH #### [facility] [address] [place] [address] Dr. Eliecer Das ER URINE PROFILEon 3 Bilirubin Ql (U) Negative Normal NEGATIVE The [facility] Comment on above: Performed By: #### P OCGLUC #### [facility] [address] [place] [address] Dr. Eliecer Das Clarity (U) CLEAR Normal CLEAR [facility] Comment on above: Performed By: #### P OCGLUC #### [facility] [address] [place] [address] Dr. Eliecer Das Color (U) LT. YELLOW Normal YELLOW [facility] Comment on above: Performed By: #### P OCGLUC #### [facility] [address] [place] [address] Dr. Eliecer Das ERUAHD A micrscopic examina tion will be performed if indicated. Normal [facility] l Comment on above: Performed By: #### P OCGLUC #### [facility] [address] [place] [address] Dr. Eliecer Das Glucose Ql (U) Negative Normal NEGATIVE The [facility] Comment on above: Performed By: #### P OCGLUC #### [facility] [address] [place] [address] Dr. Eliecer Das Hemoglobin Ql (U) Negative Normal NEGATIVE [facility] Comment on above: Performed By: #### P OCGLUC #### [facility] [address] [place] [address] Dr. Eliecer Das Ketones Ql (U) Negative Normal NEGATIVE [facility] Comment on above: Performed By: #### P OCGLUC #### [facility] [address] [place] [address] Dr. Eliecer Das LEUKOCYTES Negative Normal NEGATIVE [facility] Comment on above: Performed By: #### P OCGLUC #### [facility] [address] [place] [address] Dr. Eliecer Das Nitrite Ql (U) Positive Abnormal NEGATIVE [facility] Comment on above: Performed By: #### P OCGLUC #### [facility] [address] [place] [address] Dr. Eliecer Das pH (U) 6.5 [pH] Normal 5-9 [facility] Comment on above: Performed By: #### P OCGLUC #### [facility] [address] [place] [address] Dr. Eliecer Das SPEC GRAVITY 1.010 Normal 1.005-<=1.025 [facility] Comment on above: Performed By: #### P OCGLUC #### [facility] [address] [place] [address] Dr. Eliecer Das UA PROTEIN Negative Normal NEGATIVE/ TRACE [facility] Comment on above: Performed By: #### P OCGLUC #### [facility] [address] [place] [address] Dr. Eliecer Das UR MICRO IND INDICATED Normal [facility] Comment on above: Performed By: #### P OCGLUC #### [facility] [address] [place] [address] Dr. Eliecer Das Urobilinogen Qn (U) 1.0 {Narinder'U}/dL Normal 0.2 - 1. 0 [facility] Comment on above: Performed By: #### P OCGLUC #### [facility] [address] [place] [address] Dr. Eliecer Das INFLUENZA A AND B AGon 10-13 INFLUANEGH SEE BELOW Normal [facility] Comment on above: Result Comment: Nega tive for Flu A protein angiten. Infection due to Flu A cannot be ruled out. Flu A angiten in the sample may be below the detection limit of the test. Performed By: #### B LDCX2 #### [facility] [address] [place] [address] Dr. Eliecer Das [facility] SEE BELOW Normal [facility] Comment on above: Result Comment: Nega tive for Flu B protein antigen. Infection due to Flu B cannot be ruled out. Flu B antigen in the sample may be below the detection limit of the test. Performed By: #### B LDCX2 #### [facility] [address] [place] [address] Dr. Eliecer Das INFLUENZA A AG Negative Normal NEGATIVE SEE COMMENT [facility] Comment on above: Performed By: #### B LDCX2 #### [facility] [address] [place] [address] Dr. Eliecer Das INFLUENZA B AG Negative Normal NEGATIVE SEE COMMENT [facility] Comment on above: Performed By: #### B LDCX2 #### [facility] [address] [place] [address] Dr. Eliecer Das POINT OF CARE GLUCOSEon 09-17 Glucose [Mass/Vol] 170 mg/dL Critically high 74-106 [facility] Comment on above: Performed By: #### P OCGLUC #### [facility] [address] [place] [address] Dr. Eliecer Das Glucose [Mass/Vol] 94 mg/dL Normal 74-106 [facility] Comment on above: Performed By: #### P OCGLUC #### [facility] [address] [place] [address] Dr. Eliecer Das PROF 14(COMP METB)on 023 Albumin [Mass/Vol] 2.7 g/dL Critically low 3.4-5.0 [facility] Comment on above: Performed By: #### U RCX #### [facility] [address] [place] [address] Dr. Eliecer Das Albumin/Globulin [Mass ratio] 0.6 {ratio} Normal [facility] Comment on above: Performed By: #### U RCX #### [facility] [address] [place] [address] Dr. Eliecer Das ALP [Catalytic activity/Vol] 89 U/L Normal 46-116 [facility] Comment on above: Performed By: #### U RCX #### [facility] [address] [address] [address] Eliecer Das ALT [Catalytic activity/Vol] 29 U/L Normal 14-59 [facility] Comment on above: Performed By: #### U RCX #### [facility] [address] [address] [address] Eliecer Das Anion gap [Moles/Vol] 11.8 mmol/L Normal [facility] Comment on above: Performed By: #### U RCX #### [facility] [address] [address] [address] Eliecer Das AST [Catalytic activity/Vol] 49 U/L Critically high 15 -37 [facility] Comment on above: Performed By: #### U RCX #### [facility] [address] [address] [address] Eliecer Das Bilirubin [Mass/Vol] 1.6 mg/dL Critically high 0.2-1.0 [facility] Comment on above: Performed By: #### U RCX #### [facility] [address] [address] [address] Eliecer Das Calcium [Mass/Vol] 9.1 mg/dL Normal 8.5-10.1 [facility] Comment on above: Performed By: #### U RCX #### [facility] [address] [address] [address] Eliecer Das Chloride [Moles/Vol] 109 mmol/L Critically high 98-107 [facility] Comment on above: Performed By: #### U RCX #### [facility] [address] [address] [address] Eliecer Das CO2 [Moles/Vol] 28.4 mmol/L Normal 21.0-32.0 [facility] Comment on above: Performed By: #### U RCX #### [facility] [address] [address] [address] Eliecer Das Creatinine [Mass/Vol] 0.75 mg/dL Normal 0.55-1.02 [facility] Comment on above: Performed By: #### U RCX #### [facility] [address] [address] [address] Eliecer Das EGFR-AF COLOMBIAN >60 Normal >=60 [facility] Comment on above: Performed By: #### U RCX #### [facility] [address] [address] [address] Eliecer Das EGFR-NON AF COLOMBIAN >60 Normal >=60 [facility] Comment on above: Performed By: #### U RCX #### [facility] [address] [address] [address] Eliecer Das Globulin (S) [Mass/Vol] 4.4 g/dL Normal [facility] Comment on above: Performed By: #### U RCX #### [facility] [address] [address] [address] Eliecer Das Glucose [Mass/Vol] 109 mg/dL Critically high 74-106 [facility] Comment on above: Performed By: #### U RCX #### [facility] [address] [address] [address] Eliecer Das Potassium [Moles/Vol] 4.2 mmol/L Normal 3.5-5.1 [facility] Comment on above: Performed By: #### U RCX #### [facility] [address] [address] [address] Eliecer Das Protein [Mass/Vol] 7.1 g/dL Normal 6.4-8.2 [facility] Comment on above: Performed By: #### U RCX #### [facility] [address] [address] [address] Eliecer Das Sodium [Moles/Vol] 145 mmol/L Normal 136-145 [facility] Comment on above: Performed By: #### U RCX #### [facility] [address] [address] [address] Eliecer Das Urea nitrogen [Mass/Vol] 11.0 mg/dL Normal 7.0-18.0 [facility] Comment on above: Performed By: #### U RCX #### [facility] [address] [place] [address] Dr. Eliecer Das Urea nitrogen/Creatinine [Mass ratio] 14.7 mg/mg Normal [facility] Comment on above: Performed By: #### U RCX #### [facility] [address] [place] [address] Dr. Eliecer Das TROPONIN, HIGH SENSITIVITYon 10-13-2022 HSTROP 10.7 pg/mL Normal 4.0-51.3 [facility] Comment on above: Result Comment: CUT- OFF POINTS HAVE BEEN ESTABLISHED BASED ON THE FOURTH UNIVERSAL DEFINITIONS OF MYOCARDIAL INFARCTION. THE UPPER REFERENCE LIMIT (URL) OF TROPONIN, DEFINED THE 99TH PERCENTILE OF cTnI DISTRIBUTION IN A REFERENCE POPULATION, HAS BEEN CONFIRMED THE DECISION THRESHOLD FOR [place] DIAGNOSIS. Performed By: #### U RCX #### [facility] [address] [place] [address] Dr. Eliecer Das URINE MICROSCOPIC ONLYon BACTERIA MODERATE Abnormal NONE SEEN [facility] Comment on above: Performed By: #### P OCGLUC #### [facility] [address] [place] [address] Dr. Eliecer Das Bacteria identified Cx Nom (U) INDICATED Normal [facility] Comment on above: Performed By: #### P OCGLUC #### [facility] [address] [place] [address] Dr. Eliecer Das CAST NONE SEEN Normal NONE SEEN [facility] Comment on above: Performed By: #### P OCGLUC #### [facility] [address] [place] [address] Dr. Eliecer Das Crystals LM Nom (Urine sed) NONE SEEN Normal NONE SEE N [facility] Comment on above: Performed By: #### P OCGLUC #### [facility] [address] [place] [address] Dr. Eliecer Das Epithelial cells LM Ql (Urine sed) FEW Abnormal N ONE SEEN /RARE [facility] Comment on above: Performed By: #### P OCGLUC #### [facility] [address] [place] [address] Dr. Eliecer Das MUCOUS NONE SEEN Normal NONE SEEN [facility] Comment on above: Performed By: #### P OCGLUC #### [facility] [address] [address] [address] Eliecer Das RBC 0-2 Normal 0-2 [facility] Comment on above: Performed By: #### P OCGLUC #### [facility] [address] [address] [address] Eliecer Das WBC 5-10 Abnormal NONE SEEN [facility] Comment on above: Performed By: #### P OCGLUC #### [facility] [address] [address] [address] Eliecer Das XR CHEST 1 Von 10-13-2022 XR CHEST 1 V EXAM: XR CHEST 1 V HISTORY: COUGH COMPARISON: 03/01/2022 TECHNIQUE: Single view of the chest. FINDINGS: Left basilar opacities obstructing the left hemidiaphragm. The heart is enlarged. No right-sided pleural effusion. No pneumothorax. Atherosclerotic calcifications of the aorta. IMPRESSION: Left basilar atelectasis/consolidation. Electronically authenticated by: MARCO LEROY Date: 2022-10-13 12:34 Normal [facility] A1C HEMOGLOBINon 10-01-2022 HbA1c (Bld) [Mass fraction] 5.4 % [employer] Other HbA1c (Bld) [Mass fraction]o n 10-01-2022 A1C HEMOGLOBIN [employer] Other Urinalysis - AUTOMATEDon Appearance (U) CLEAR [employer] Other Bilirubin Ql (U) SMALL [employer] ast [employer] Other Color (U) YELLOW [facility] [employer] Other Glucose Ql (U) Negative [employer] Other Hemoglobin Ql (U) LARGE Ch[employer] C oast [employer] Other Ketones Ql (U) TRACE [employer] Other Leukocyte esterase Test stri p Ql (U) TRACE [employer] Other Nitrite Ql (U) Positive [employer] Other pH (U) 5.5 [pH] [facility] [employer] Other Protein Ql (U) Negative [employer] Other Specific gravity (U) [Rel density] >=1.030 [facility] [employer] Other Urobilinogen (U) [Mass/Vol] 1.0 mg/dL [facility] [employer] Other Urinalysis - AUTOMATED No rt [employer] Other US thyroidon 06-15-2022 thyroid [facility] [place] [address] Ultrasound Report Signed Patient: Salma Quan MR#: [id number] 468 : 1935 Acct:[id number] Age/Sex: 87 / F ADM Date: 06/15/22 Loc: RT Room: Type: [facility] Attending Dr: Brendon Momin MD Ordering Provider: Brendon Momin MD Date of Service: 06/15/22 US/US thyroid: Enlarged thyroid Copies to: Brendon Momin MD Thyroid ultrasound HISTORY:Enlarged thyroid COMPARISON:None The RIGHT lobe measures 4.7 x 2.9 x 2.1cm. LEFT lobe measures 4.7 x 2.7 x 2.4 cm. Isthmus has an AP dimension of 0.9cm. Multiple complex solid nodules are seen throughout the largest measured. Right inferior complex nodule that measures up to 11 mm. Left superior heterogeneous nodule measures up to 13 mm. Left mid heterogeneous nodule measures up to 16 mm.. Heterogeneous nodule of the isthmus measures up to 13 mm. No microcalcifications identified. Symmetric blood flow of the thyroid gland identified. US/US thyroid IMPRESSION: Multiple bilateral heterogeneous solid and cystic thyroid nodules measuring up to 16 mm. Impression dictated by: Franki Chris M.D.06/15/2022 4:03 PM Dictation Location: [place] [address] Tech: Cindy Araya Transcribed By: BERNARDO 06/15/22 1603 Dictated By: Franki Chris DO 06/15/22 1601 Signed By: 06/15/22 1603 Normal [facility] CT chest wo conon 06-08-2022 CT chest wo con [facility] Main [place] [address] [place], [place] [id number] CT Scan Report Signed Patient: Salma Quan MR#: [id number] 468 : 1935 Acct:[id number] Age/Sex: 87 / F ADM Date: 06/08/22 Loc: CT Room: Type: [facility] Attending Dr: Brendon Momin MD Copies to: Brendon Momin MD Ordering Provider: Brendon Momin MD Date of Service: 06/08/22 CT/CT chest wo con: Cough;Edema extremities;Cardiomegaly CT CHEST WITHOUT IV CONTRAST: CLINICAL HISTORY: Shortness of breath with exertion. Bilateral lower extremity swelling with cough. History of COVID COMPARISON: Chest 05/26/2022 TECHNIQUE: Spiral images were obtained through the chest without IV contrast. This CT exam was performed using one or more following dose reduction techniques: Automated exposure control, adjustment of the mA and/or kV according to patient size, or use of iterative reconstruction technique. FINDINGS: Mediastinum:Lobular appearing thyroid gland with a punctate calcification. Thoracic aorta appears normal in caliber. Pulmonary trunk is nondilated. No pericardial effusion. No lymphadenopathy. The esophagus is grossly unremarkable. Lungs:Peripheral fibrotic changes without honeycombing. No focal consolidation, pneumothorax or pleural effusion. Trachea and distal airways appear patent. No suspicious lung nodule. Abd:No acute findings. Soft tissues/Bones: Visualized soft tissues surrounding the chest wall demonstrate no acute findings. Osseous structures demonstrate degenerative change. CT/CT chest wo con IMPRESSION: Peripheral fibrotic changes without honeycombing. No acute process is seen. Lobular appearing thyroid gland with punctate calcification. This can be further evaluated by ultrasound. Impression dictated by: Christiano Cameron Jr., D.OKelly06/08/2022 3:17 PM Dictation Location: [place] [address] Transcribed By: BERNARDO 06/08/22 1517 Dictated By: Christiano Cameron Jr, DO 06/08/22 1514 Signed By: 06/08/22 1517 Normal [facility] SARS-CoV-2 (COVID-19) RNA PELON+probe Ql (Unsp spec) cough. History of COVID [facility] [employer] Other CT chest wo con [facility] [employer] Other CT chest wo con [facility] [place] Nor [employer] Other CT chest wo con [address] [facility] No rt [employer] [place] [address] [address] [facility] [employer] Other CT chest wo con CT Scan Report [employer] Other CT chest wo con Signed [email or web address] Other CT chest wo con Patient: Shayna Quan MR#: [id number] [place] [employer] Other CT chest wo con [address] [email or web address] [address] chest wo con : 1935 Acct:[id number] [place] [employer] Other CT chest wo con Age/Sex: 87 / F ADM Date: 06/08/[address] [employer] [address] chest wo con Loc: CT Room: Type: [facility] [employer] Other CT chest wo con Attending Dr: Brendon Momin MD [employer] Other CT chest wo con Copies to: Brendon Momin MD [employer] Other CT chest wo con Ordering Provider: Radha Momin MD [employer] Other CT chest wo con Date of Service: 06/08/[address] [employer] [address] chest wo con [id number] CT/CT chest wo con: Cough;Edema extremities;Cardiomegaly [employer] Other CT chest wo con CT CHEST WITHOUT IV CONTRAST: [employer] Other CT chest wo con CLINICAL HISTORY: Sh ortness of breath with exertion. Bilateral lower extremity swelling with [employer] Other CT chest wo con COMPARISON: Chest 05/26/[address] [employer] [address] chest wo con TECHNIQUE: Spiral im ages were obtained through the chest without IV contrast. This CT exam was [employer] Other CT chest wo con performed using one or more following dose reduction techniques: Automated exposure control, [employer] Other CT chest wo con adjustment of the mA and/or kV according to patient size, or use of iterative reconstruction [employer] Other CT chest wo con technique. [email or web address] Other CT chest wo con FINDINGS: [email or web address] Other CT chest wo con Mediastinum:Lobular appearing thyroid gland with a punctate calcification. Thoracic aorta appears [employer] Other CT chest wo con normal in caliber. P ulmonary trunk is nondilated. No pericardial effusion. No lymphadenopathy. [employer] Other CT chest wo con The esophagus is kamari ssly unremarkable. [employer] Other CT chest wo con Lungs:Peripheral fib rotic changes without honeycombing. No focal consolidation, pneumothorax or [email or web address] Other CT chest wo con pleural effusion. Tr achea and distal airways appear patent. No suspicious lung nodule. [employer] Other CT chest wo con Abd:No acute findings. [employer] Other CT chest wo con Soft tissues/Bones: Visualized soft tissues surrounding the chest wall demonstrate no acute [employer] Other CT chest wo con findings. Osseous st ructures demonstrate degenerative change. [employer] Other CT chest wo con C T/CT chest wo con [employer] Other CT chest wo con IMPRESSION: [email or web address] Other CT chest wo con Peripheral fibrotic changes without honeycombing. No acute process is seen. [employer] Other CT chest wo con Lobular appearing th yroid gland with punctate calcification. This can be further evaluated by [employer] Other CT chest wo con ultrasound. [email or web address] Other CT chest wo con Impression dictated by: Christiano Cameron Jr., DKellyOKelly06/08/2022 3:17 PM [facility] Other CT chest wo con Dictation Location: [place] [address] [employer] [address] chest wo con Transcribed By: PWS 06/08/22 [facility] [employer] Other CT chest wo con Dictated By: Christiano Cameron Jr, DO 06/08/22 [facility] [employer] Other CT chest wo con Signed By: [email or web address] Other CT chest wo con 06/08/22 [facility] [employer] Other ECH echo transthoracicon ECH echo transthoracic [facility] [place] [address] Echocardiogram Signed Patient: Salma Quan MR#: [id number] 468 : 1935 Acct:[id number] Age/Sex: 87 / F ADM Date: 06/08/22 Loc: CT Room: Type: [facility] Attending Dr: Brendon Momin MD Ordering Provider: Brendon Momin MD Date of Service: 06/08/22/ ECH/ECH echo transthoracic: Cough. Edema. Cardiomegaly. Copies to: MD Brendon Restrepo MD Weight: 172 lb Performed By: NARCISA Martinez BSA: 1.8 m2 BP: 120/51 mmHg HR: 60 Reason For Study: Cough. Edema. Cardiomegaly. History: HTN, DM, COVID Interpretation Summary The left ventricular size, thickness and function are normal The left ventricular wall motion is normal. Ejection Fraction = 60-65%. A variety of Doppler measurements indicate impaired left ventricular relaxation, which is associated with grade I/IV or mild diastolic dysfunction. The left atrium appears mildly dilated. There is trace mitral regurgitation. There is trace tricuspid regurgitation. The right ventricular systolic pressure is 38 mmHg. Right ventricular systolic pressure is consistent with mild pulmonary hypertension. Mild valvular aortic stenosis. Compared to prior study, there is no significant change. Procedure/Quality: A two-dimensional transthoracic echocardiogram with color flow and Doppler was performed. The study was technically good in quality. Left Ventricle: The left ventricular size, thickness and function are normal. Ejection Fraction = 60-65%. A variety of Doppler measurements indicate impaired left ventricular relaxation, which is associated with grade I/IV or mild diastolic dysfunction. The left ventricular wall motion is normal. Left Atrium: The left atrium appears mildly dilated. Right Atrium: The right atrium appears normal in size. Right Ventricle: The right ventricular size, thickness and function are normal. Aortic Valve: Mild valvular aortic stenosis. No aortic regurgitation is present. Mitral Valve: The mitral valve is normal in structure and function. There is trace mitral regurgitation. Tricuspid Valve: The tricuspid valve is normal in structure and function. There is trace tricuspid regurgitation. The right ventricular systolic pressure is 38 mmHg. Right ventricular systolic pressure is consistent with mild pulmonary hypertension. Pulmonic Valve: The pulmonic valve is normal in structure and function. Arteries: The aortic root is normal size. Pericardium/Pleura: No pericardial effusion seen. There is no pleural effusion. IVC/Hepatic Viens: The inferior vena cava is normal in size, with a normal collapsibility index. Measurements with Normals IVSd: 0.85 cm (0.7-1.1 cm)LVIDd: 4.4 cm (3.7-5.4 cm) LVPWd: 0.93 cm (0.7-1.1 cm)LVIDs: 2.2 cm (2.3-3.6 cm) LA dimension: 4.1 cm (2.3-4.0 cm)Ao root diam: 3.2 cm(2.0-3.6 cm) asc Aorta Diam: 2.7 cm(2.1-3.4cm) Doppler with Normals RVSP(TR): 38.4 mmHg (18-35mmHg) LV V1 max: 175.6 cm/sec (0.7-1.7m/s)MV E max zelda: 124.0 cm/sec(0.8-1.3m/s) MV A max zelda: 112.7 cm/sec(0.0-0.0m/s) MV E/A: 1.1 (<1.5) MMode/2D Measurements Calculations RVDd: 3.3 cm FS: 50.8 % Ao root area: LVOT diam: 1.9 cm TAPSE: 2.6 cm EDV(Teich): 7.9 cm2 LVOT area: 2.7 cm2 RV S Zelda: 87.4 ml 18.0 cm/sec ESV(Teich): 15.5 ml EF(Teich): 82.3 % __ LVLd ap4: 5.9 cm SV(MOD-sp4): LAV(MOD-sp4): LA A2 area: 10.6 cm2 EDV(MOD-sp4): 24.0 ml 26.0 ml 36.6 ml LAV(MOD-sp2): LA A4 area: 12.2 cm2 LVLs ap4: 4.5 cm 25.2 ml LA length (vol): ESV(MOD-sp4): 4.5 cm 12.6 ml LA vol: 24.3 ml EF(MOD-sp4): 65.6 % LA vol index: 13.9 ml/m2 Doppler Measurements Calculations MV dec time: MV max PG: E/E' lat: 13.6 MV dec slope: 0.30 sec 53.0 mmHg E/E' med: 13.6 417.9 cm/sec2 __ Ao V2 max: LV V1 max PG: MR max zelda: TV max P.0 mmHg 295.3 cm/sec 12.3 mmHg 365.3 cm/sec Ao max PG: LV V1 mean PG: MR max P.9 mmHg 6.2 mmHg 54.1 mmHg Ao mean PG: LV V1 mean: 16.9 mmHg 117.9 cm/sec Ao V2 mean: LV V1 VTI: 38.2 cm 190.9 cm/sec Ao V2 VTI: 67.9 cm GINO(I,D): 1.5 cm2 GINO(V,D): 1.6 cm2 __ TR max zelda: 289.0 cm/sec TR max P.4 mmHg RAP systole: 5.0 mmHg Transcribed By: SCV Performed At: 06/08/22 1423 Signed By: Matthew Martinez MD 06/08/22 1543 Normal [facility] A1C HEMOGLOBINon 06-07-2022 HbA1c (Bld) [Mass fraction] 5.4 % [employer] Other HbA1c (Bld) [Mass fraction]o n 06-07-2022 A1C HEMOGLOBIN [facility] [employer] Other Albumin [Mass/volume] in Ser um or PlasmaOrdered By: Brendon Momin on 05-17-2022 Albumin [Mass/Vol] 3.0 g/dL 3.2-5.5 [facility] Basophils Auto (Bld) [#/Vol] Ordered By: Brendon Momin on 05-17-2022 Basophils (Bld) [#/Vol] 0.1 10*3/uL 0.0-0.2 [facility] Basophils/100 WBC Auto (Bld) Ordered By: Brendon Momin on 05-17-2022 Basophils/100 WBC (Bld) 1.2 % . [facility] Blood hemoglobin measurement (mass/volume)Ordered By: Brendon Momin on 05-17-2022 Hemoglobin (Bld) [Mass/Vol] 14.4 g/dL 11.8-15. 4 [facility] Blood leukocytes automated c ount (number/volume)Ordered By: Brendon Momin on 05-17-2022 WBC (Bld) [#/Vol] 6.3 10*3/uL 4.5-11.0 [facility] Creatinine and Glomerular fi ltration rate.predicted panel (S/P/Bld)Ordered By: Brendon Momin on 05-17-2022 Creatinine [Mass/Vol] 0.90 mg/dL 0.44-1.03 [facility] Eosinophils Auto (Bld) [#/Vo l]Ordered By: Brendon Momin on 05-17-2022 Eosinophils (Bld) [#/Vol] 0.2 10*3/uL 0.0-0.45 [facility] Eosinophils/100 WBC Auto (Bl d)Ordered By: Brendon Momin on 05-17-2022 Eosinophils/100 WBC (Bld) 3.5 % . [facility] Erythrocyte distribution wid th Auto (RBC) [Ratio]Ordered By: Brendon Momin on 05-17-2022 Erythrocyte distribution wid th (RBC) [Ratio] 15.4 % 11.9-15.3 [facility] Estimated glomerular filtrat ion rate (GFR) non- AmericanOrdered By: Brendon Momin on 05-17-2022 GFR/1.73 sq M.predicted gerber g non-blacks MDRD (S/P/Bld) [Vol rate/Area] 60 mL/Min [facility] Globulin Calc (S) [Mass/Vol] Ordered By: Brendon Momin on 05-17-2022 Globulin (S) [Mass/Vol] 3.7 g/dL F [facility] Hematocrit Auto (Bld) [Volum e fraction]Ordered By: Brendon Momin on 05-17-2022 Hematocrit (Bld) [Volume fraction] 43.9 % 3 4.0-46.4 [facility] Laboratory - Hematology and Cell countsOrdered By: Brendon Momin on 05-17-2022 Nucleated RBC/100 WBC (Bld) [Ratio] 0.1 % 0-0.5 [facility] Lymphocytes Auto (Bld) [#/Vo l]Ordered By: Brendon Momin on 05-17-2022 Lymphocytes (Bld) [#/Vol] 1.9 10*3/uL 1.00-4.8 [facility] Lymphocytes/100 WBC Auto (Bl d)Ordered By: Brendon Momin on 05-17-2022 Lymphocytes/100 WBC (Bld) 29.5 % . [facility] MCH Auto (RBC) [Entitic mass ]Ordered By: Brendon Momin on 05-17-2022 MCH (RBC) [Entitic mass] 30.3 pg 24.7-34.3 [facility] MCHC Auto (RBC) [Mass/Vol]Or dered By: Brendon Momin on 05-17-2022 MCHC (RBC) [Mass/Vol] 32.8 g/dL 32.0-35.0 [facility] MCV Auto (RBC) [Entitic vol] Ordered By: Brendon Momin on 05-17-2022 MCV (RBC) [Entitic vol] 92.4 fL 80-100 [facility] Monocytes Auto (Bld) [#/Vol] Ordered By: Brendon Momin on 05-17-2022 Monocytes (Bld) [#/Vol] 0.7 10*3/uL 0.0-0.8 [facility] Monocytes/100 WBC Auto (Bld) Ordered By: Brendon Momin on 05-17-2022 Monocytes/100 WBC (Bld) 10.8 % . [facility] Neutrophils Auto (Bld) [#/Vo l]Ordered By: Brendon Momin on 05-17-2022 Neutrophils (Bld) [#/Vol] 3.5 10*3/uL 1.8-7.7 [facility] Neutrophils/100 WBC Auto (Bl d)Ordered By: Brendon Momin on 05-17-2022 Neutrophils/100 WBC (Bld) 55.0 % . [facility] No Panel InformationOrdered By: Brendon Momin on 05-17-2022 Estimated GFR () > 60 mL/Min [facility] Comment on above: GFR estimated refere nce range: According to KDOQI guidelines, <60 ml/min/1.73m2 is sufficient to diagnose a patient with chronic kidney disease. Pharmacy Creatinine Clearance (Chem N/A [facility] Platelet mean volume Auto (B ld) [Entitic vol]Ordered By: Brendon Momin on 05-17-2022 Platelet mean volume (Bld) [Entitic vol] 8.1 fL 6.3-10.7 [facility] Platelets Auto (Bld) [#/Vol] Ordered By: Brendon Momin on 05-17-2022 Platelets (Bld) [#/Vol] 371 10*3/uL 150-450 [facility] Protein [Mass/volume] in Ser um or PlasmaOrdered By: Brendon Momin on 05-17-2022 Protein [Mass/Vol] 6.7 g/dL 6.1-7.9 [facility] RBC Auto (Bld) [#/Vol]Ordere d By: Brendon Momin on 05-17-2022 RBC (Bld) [#/Vol] 4.75 10*6/uL 3.60-5.00 [facility] Serum or plasma alanine manuel otransferase measurement without P-5'-P (enzymatic activiOrdered By: Brendon Momin on 05-17-2022 ALT No additional P-5'-P [Ca talytic activity/Vol] 26 U/L 10-60 [facility] Serum or plasma albumin/glob ulin mass ratioOrdered By: Brendon Momin on 05-17-2022 Albumin/Globulin [Mass ratio] 0.8 {ratio} [facility] Serum or plasma alkaline marsha sphatase measurement (enzymatic activity/volume)Ordered By: Brendon Momin on 05-17-2022 ALP [Catalytic activity/Vol] 67 U/L 32-92 [facility] Serum or plasma anion gap de terminationOrdered By: Brendon Momin on 05-17-2022 Anion gap [Moles/Vol] 11.1 mmol/L 6.0-15.0 [facility] Serum or plasma aspartate am inotransferase measurement (enzymatic activity/volume)Ordered By: Brendon Momin on 05-17-2022 AST [Catalytic activity/Vol] 43 U/L 10-42 [facility] Serum or plasma calcium faviola urement (mass/volume)Ordered By: Brendon Momin on 05-17-2022 Calcium [Mass/Vol] 9.8 mg/dL 8.2-10.2 [facility] Serum or plasma chloride jerome surement (moles/volume)Ordered By: Brendon Momin on 05-17-2022 Chloride [Moles/Vol] 103 mmol/L 95-114 [facility] Serum or plasma glucose faviola urement (mass/volume)Ordered By: Brendon Momin on 05-17-2022 Glucose [Mass/Vol] 140 mg/dL 70-100 [facility] Comment on above: ADA recommended refe rence range Random Glucose Reference Range is dependent on time and content of last meal. Glucose of more than 200 mg/dL in a nonstressed, ambulatory subject supports the diagnosis of Diabetes Mellitus. Serum or plasma potassium me asurement (moles/volume)Ordered By: Brendon Momin on 05-17-2022 Potassium [Moles/Vol] 4.5 mmol/L 3.5-5.1 [facility] Serum or plasma sodium measu rement (moles/volume)Ordered By: Brendon Momin on 05-17-2022 Sodium [Moles/Vol] 139 mmol/L 136-146 [facility] Serum or plasma total biliru bin measurement (mass/volume)Ordered By: Brendon Momin on 05-17-2022 Bilirubin [Mass/Vol] 1.5 mg/dL 0.3-1.2 [facility] Comment on above: Samples from patient s who have taken Naproxen have shown spurious elevation in Total Bilirubin levels. A metabolite of Naproxen, O-desmethylnaproxen, has been shown to interfere with the Jeanine-Ximena method for measuring Total Bilirubin. Serum or plasma total carbon dioxide measurement (moles/volume)Ordered By: Brendon Momin on 05-17-2022 CO2 [Moles/Vol] 29.4 mmol/L 22.0-30.0 [facility] Serum or plasma urea nitroge n measurement (mass/volume)Ordered By: Brendon Momin on 05-17-2022 Urea nitrogen [Mass/Vol] 12 mg/dL 9-23 [facility] CBC AUTO DIFFon 03-02-2022 BASO # 0.1 103/ul Normal 0.0-0.1 [facility] Comment on above: Performed By: #### U RCX #### [facility] [address] [address] [address] Eliecer Das Basophils/100 WBC (Bld) 0.8 % Normal 0.2-2.0 [facility] Comment on above: Performed By: #### U RCX #### [facility] [address] [place] [address] Dr. Eliecer Das EO # 0.0 103/ul Normal 0.0-0.7 [facility] Comment on above: Performed By: #### U RCX #### [facility] [address] [place] [address] Dr. Eliecer Das Eosinophils/100 WBC (Bld) 0.1 % Critically low 0.9-7. 0 [facility] Comment on above: Performed By: #### U RCX #### [facility] [address] [place] [address] Dr. Eliecer Das Erythrocyte distribution wid th (RBC) [Ratio] 13.4 % Normal 11.0-15.0 [facility] Comment on above: Performed By: #### U RCX #### [facility] [address] [place] [address] Dr. Eliecer Das Hematocrit (Bld) [Volume fraction] 42.9 % Normal 3 6.0-48.0 [facility] Comment on above: Performed By: #### U RCX #### [facility] [address] [place] [address] Dr. Eliecer Das Hemoglobin (Bld) [Mass/Vol] 14.3 g/dL Normal 12.0-16. 0 [facility] Comment on above: Performed By: #### U RCX #### [facility] [address] [place] [address] Dr. Eliecer Das IG # 0.07 10e3/ul Critically high 0.00-0.03 [facility] Comment on above: Performed By: #### U RCX #### [facility] [address] [place] [address] Dr. Eliecer Das IG % 0.8 % Critically high 0.0-0.5 [facility] Comment on above: Performed By: #### U RCX #### [facility] [address] [place] [address] Dr. Eliecer Das LYMPH # 1.3 103/ul Normal 1.2-3.8 [facility] Comment on above: Performed By: #### U RCX #### [facility] [address] [place] [address] Dr. Eliecer Das Lymphocytes/100 WBC (Bld) 14.4 % Critically low 20.5-6 0.0 [facility] Comment on above: Performed By: #### U RCX #### [facility] [address] [place] [address] Dr. Eliecer Das MANUAL DIFF REQ NO Normal [facility] Comment on above: Performed By: #### U RCX #### [facility] [address] [place] [address] Dr. Eliecer Das MCH (RBC) [Entitic mass] 31.2 pg Normal 26.7-34.0 [facility] Comment on above: Performed By: #### U RCX #### [facility] [address] [place] [address] Dr. Eliecer Das MCHC (RBC) [Mass/Vol] 33.3 g/dL Normal 29.9-35.2 [facility] Comment on above: Performed By: #### U RCX #### [facility] [address] [place] [address] Dr. Eliecer Das MCV (RBC) [Entitic vol] 93.7 fL Normal 81.0-99.0 [facility] Comment on above: Performed By: #### U RCX #### [facility] [address] [place] [address] Dr. Eliecer Das MONO # 1.0 103/ul Critically high 0.3-0.8 [facility] Comment on above: Performed By: #### U RCX #### [facility] [address] [place] [address] Dr. Eliecer Das Monocytes/100 WBC (Bld) 10.4 % Normal 1.7-12.0 [facility] Comment on above: Performed By: #### U RCX #### [facility] [address] [place] [address] Dr. Eliecer Das NEUT # 6.8 103/ul Critically high 1.4-6.5 [facility] Comment on above: Performed By: #### U RCX #### [facility] [address] [place] [address] Dr. Eliecer Das Neutrophils/100 WBC (Bld) 73.5 % Normal 43.0-75.0 [facility] Comment on above: Performed By: #### U RCX #### [facility] [address] [place] [address] Dr. Eliecer Das Platelet mean volume (Bld) [Entitic vol] 9.0 fL Critically low 9.5-13.5 [facility] Comment on above: Performed By: #### U RCX #### [facility] [address] [place] [address] Dr. Eliecer Das PLT 230 103/ul Normal 150-450 [facility] Comment on above: Performed By: #### U RCX #### [facility] [address] [place] [address] Dr. Eliecer Das RBC 4.58 106/ul Normal 4.20-5.40 [facility] Comment on above: Performed By: #### U RCX #### [facility] [address] [place] [address] Dr. Eliecer Das WBC 9.2 103/ul Normal 4.0-11.0 [facility] Comment on above: Performed By: #### U RCX #### [facility] [address] [place] [address] Dr. Eliecer Das CULTURE BLOODon 03-02-2022 Microscopic examination of blood, culture Culture Observations: No growth at 5 days. Normal [facility] Comment on above: Performed By: #### B LDCX1 #### [facility] [address] [place] [address] Dr. Eliecer Das LACTATE/LACTIC ACIDon 2021 Lactate [Moles/Vol] 2.1 mmol/L Critically high 0.4-1.9 [facility] Comment on above: Performed By: #### P OCGLUC #### [facility] [address] [address] [address] Eliecer Das Lactate [Moles/Vol] 2.3 mmol/L Critically high 0.4-1.9 [facility] Comment on above: Performed By: #### U RCX #### [facility] [address] [place] [address] Dr. Eliecer Das Lactate [Moles/Vol] 2.2 mmol/L Critically high 0.4-1.9 [facility] Comment on above: Performed By: #### B LDCX1 #### [facility] [address] [place] [address] Dr. Eliecer Das POINT OF CARE GLUCOSEon 02-14 Glucose [Mass/Vol] 123 mg/dL Critically high 74-106 [facility] Comment on above: Performed By: #### P OCGLUC #### [facility] [address] [place] [address] Dr. Eliecer Das Glucose [Mass/Vol] 114 mg/dL Critically high 74-106 [facility] Comment on above: Performed By: #### B LDCX1 #### [facility] [address] [place] [address] Dr. Eliecer Das PROF 14(COMP METB)on 022 Albumin [Mass/Vol] 2.6 g/dL Critically low 3.4-5.0 [facility] Comment on above: Performed By: #### B LDCX2 #### [facility] [address] [place] [address] Dr. Eliecer Das Albumin/Globulin [Mass ratio] 0.6 {ratio} Normal [facility] Comment on above: Performed By: #### B LDCX2 #### [facility] [address] [place] [address] Dr. Eliecer Das ALP [Catalytic activity/Vol] 67 U/L Normal 46-116 [facility] Comment on above: Performed By: #### B LDCX2 #### [facility] [address] [place] [address] Dr. Eliecer Das ALT [Catalytic activity/Vol] 37 U/L Normal 14-59 [facility] Comment on above: Performed By: #### B LDCX2 #### [facility] [address] [place] [address] Dr. Eliecer Das Anion gap [Moles/Vol] 10.8 mmol/L Normal [facility] Comment on above: Performed By: #### B LDCX2 #### [facility] [address] [place] [address] Dr. Eliecer Das AST [Catalytic activity/Vol] 60 U/L Critically high 15 -37 [facility] Comment on above: Performed By: #### B LDCX2 #### [facility] [address] [place] [address] Dr. Eliecer Das Bilirubin [Mass/Vol] 1.6 mg/dL Critically high 0.2-1.0 [facility] Comment on above: Performed By: #### B LDCX2 #### [facility] [address] [place] [address] Dr. Eliecer Das Calcium [Mass/Vol] 8.5 mg/dL Normal 8.5-10.1 [facility] Comment on above: Performed By: #### B LDCX2 #### [facility] [address] [place] [address] Dr. Eliecer Das Chloride [Moles/Vol] 103 mmol/L Normal 98-107 [facility] Comment on above: Performed By: #### B LDCX2 #### [facility] [address] [place] [address] Dr. Eliecer Das CO2 [Moles/Vol] 26.7 mmol/L Normal 21.0-32.0 [facility] Comment on above: Performed By: #### B LDCX2 #### [facility] [address] [place] [address] Dr. Eliecer Das Creatinine [Mass/Vol] 0.83 mg/dL Normal 0.55-1.02 [facility] Comment on above: Performed By: #### B LDCX2 #### [facility] [address] [place] [address] Dr. Eliecer Das EGFR-AF COLOMBIAN >60 Normal >=60 [facility] Comment on above: Performed By: #### B LDCX2 #### [facility] [address] [address] [address] Eliecer Das EGFR-NON AF COLOMBIAN >60 Normal >=60 [facility] Comment on above: Performed By: #### B LDCX2 #### [facility] [address] [address] [address] Eliecer Das Globulin (S) [Mass/Vol] 4.4 g/dL Normal [facility] Comment on above: Performed By: #### B LDCX2 #### [facility] [address] [address] [address] Eliecer Das Glucose [Mass/Vol] 122 mg/dL Critically high 74-106 [facility] Comment on above: Performed By: #### B LDCX2 #### [facility] [address] [place] [address] Dr. Eliecer Das Potassium [Moles/Vol] 4.5 mmol/L Normal 3.5-5.1 [facility] Comment on above: Performed By: #### B LDCX2 #### [facility] [address] [place] [address] Dr. Eliecer Das Protein [Mass/Vol] 7.0 g/dL Normal 6.4-8.2 [facility] Comment on above: Performed By: #### B LDCX2 #### [facility] [address] [place] [address] Dr. Eliecer Das Sodium [Moles/Vol] 136 mmol/L Normal 136-145 [facility] Comment on above: Performed By: #### B LDCX2 #### [facility] [address] [address] [address] Eliecer Das Urea nitrogen [Mass/Vol] 12.0 mg/dL Normal 7.0-18.0 [facility] Comment on above: Performed By: #### B LDCX2 #### [facility] [address] [address] [address] Eliecer Das Urea nitrogen/Creatinine [Mass ratio] 14.5 mg/mg Normal [facility] Comment on above: Performed By: #### B LDCX2 #### [facility] [address] [address] [address] Eliecer Das Albumin [Mass/Vol] 2.7 g/dL Critically low 3.4-5.0 [facility] Comment on above: Performed By: #### P OCGLUC #### [facility] [address] [address] [address] Eliecer Das Albumin/Globulin [Mass ratio] 0.6 {ratio} Normal [facility] Comment on above: Performed By: #### P OCGLUC #### [facility] [address] [address] [address] Eliecer Das ALP [Catalytic activity/Vol] 69 U/L Normal 46-116 [facility] Comment on above: Performed By: #### P OCGLUC #### [facility] [address] [address] [address] Eliecer Das ALT [Catalytic activity/Vol] 45 U/L Normal 14-59 [facility] Comment on above: Performed By: #### P OCGLUC #### [facility] [address] [address] [address] Eliecer Das Anion gap [Moles/Vol] 13.5 mmol/L Normal [facility] Comment on above: Performed By: #### P OCGLUC #### [facility] [address] [address] [address] Eliecer Das AST [Catalytic activity/Vol] 64 U/L Critically high 15 -37 [facility] Comment on above: Performed By: #### P OCGLUC #### [facility] [address] [address] [address] Eliecer Das Bilirubin [Mass/Vol] 1.6 mg/dL Critically high 0.2-1.0 [facility] Comment on above: Performed By: #### P OCGLUC #### [facility] [address] [address] [address] Eliecer Das Calcium [Mass/Vol] 9.0 mg/dL Normal 8.5-10.1 [facility] Comment on above: Performed By: #### P OCGLUC #### [facility] [address] [address] [address] Eliecer Das Chloride [Moles/Vol] 101 mmol/L Normal 98-107 [facility] Comment on above: Performed By: #### P OCGLUC #### [facility] [address] [address] [address] Eliecer Das CO2 [Moles/Vol] 25.1 mmol/L Normal 21.0-32.0 [facility] Comment on above: Performed By: #### P OCGLUC #### [facility] [address] [address] [address] Eliecer Das Creatinine [Mass/Vol] 0.89 mg/dL Normal 0.55-1.02 [facility] Comment on above: Performed By: #### P OCGLUC #### [facility] [address] [address] [address] Eliecer Das EGFR-AF COLOMBIAN >60 Normal >=60 [facility] Comment on above: Performed By: #### P OCGLUC #### [facility] [address] [address] [address] Eliecer Das EGFR-NON AF COLOMBIAN 60 mL/min/1.73m2 Normal >=60 [facility] Comment on above: Performed By: #### P OCGLUC #### [facility] [address] [address] [address] Eliecer Das Globulin (S) [Mass/Vol] 4.4 g/dL Normal [facility] Comment on above: Performed By: #### P OCGLUC #### [facility] [address] [address] [address] Eliecer Das Glucose [Mass/Vol] 132 mg/dL Critically high 74-106 [facility] Comment on above: Performed By: #### P OCGLUC #### [facility] [address] [address] [address] Eliecer Das Potassium [Moles/Vol] 4.6 mmol/L Normal 3.5-5.1 [facility] Comment on above: Performed By: #### P OCGLUC #### [facility] [address] [address] [address] Eliecer Das Protein [Mass/Vol] 7.1 g/dL Normal 6.4-8.2 [facility] Comment on above: Performed By: #### P OCGLUC #### [facility] [address] [address] [address] Eliecer Das Sodium [Moles/Vol] 135 mmol/L Critically low 136-145 [facility] Comment on above: Performed By: #### P OCGLUC #### [facility] [address] [address] [address] Eliecer Das Urea nitrogen [Mass/Vol] 12.0 mg/dL Normal 7.0-18.0 [facility] Comment on above: Performed By: #### P OCGLUC #### [facility] [address] [place] [address] Dr. Eliecer Das Urea nitrogen/Creatinine [Mass ratio] 13.5 mg/mg Normal [facility] Comment on above: Performed By: #### P OCGLUC #### [facility] [address] [place] [address] Dr. Eliecre Das RESPIRATORY PANEL PLUSon Adenovirus Not detected Normal NOT DETECTED [facility] Comment on above: Performed By: #### C VDTBH #### [facility] [address] [place] [address] Dr. Eliecer [place]. Parapertusis Not detected Normal NOT DETECTED [facility] Comment on above: Performed By: #### C VDTBH #### [facility] [address] [place] [address] Dr. Eliecer Das B. Pertussis Not detected Normal NOT DETECTED [facility] Comment on above: Performed By: #### C VDTBH #### [facility] [address] [place] [address] Dr. Eliecer Das Chlamydia Pneumoniae Not detected Normal NOT DETECTED [facility] Comment on above: Performed By: #### C VDTBH #### [facility] [address] [place] [address] Dr. Eliecer Das Coronavirus 229E Not detected Normal NOT DETECTED [facility] Comment on above: Performed By: #### C VDTBH #### [facility] [address] [place] [address] Dr. Eliecer Das Coronavirus HKU1 Not detected Normal NOT DETECTED [facility] Comment on above: Performed By: #### C VDTBH #### [facility] [address] [place] [address] Dr. Eliecer Das Coronavirus NL63 Not detected Normal NOT DETECTED [facility] Comment on above: Performed By: #### C VDTBH #### [facility] [address] [place] [address] Dr. Eliecer Das Coronavirus OC43 Not detected Normal NOT DETECTED [facility] Comment on above: Performed By: #### C VDTBH #### [facility] [address] [place] [address] Dr. Eliecer Das Influenza A H1 2009 Not detected Normal NOT DETECTED [facility] Comment on above: Performed By: #### C VDTBH #### [facility] [address] [place] [address] Dr. Elieecr Das Influenza A H3 Not detected Normal NOT DETECTED [facility] Comment on above: Performed By: #### C VDTBH #### [facility] [address] [place] [address] Dr. Eliecer Das Influenza B Not detected Normal NOT DETECTED [facility] Comment on above: Performed By: #### C VDTBH #### [facility] [address] [place] [address] Dr. Eliecer Das Metapneumovirus Not detected Normal NOT DETECTED [facility] Comment on above: Performed By: #### C VDTBH #### [facility] [address] [place] [address] Dr. Eliecer Das Mycoplas. Pneumoniae Not detected Normal NOT DETECTED [facility] Comment on above: Performed By: #### C VDTBH #### [facility] [address] [place] [address] Dr. Eliecer Das Parainfluenza 1 Not detected Normal NOT DETECTED [facility] Comment on above: Performed By: #### C VDTBH #### [facility] [address] [place] [address] Dr. Eliecer Das Parainfluenza 2 Not detected Normal NOT DETECTED [facility] Comment on above: Performed By: #### C VDTBH #### [facility] [address] [place] [address] Dr. Eliecer Das Parainfluenza 3 Detected Abnormal NOT DETECTED [facility] Comment on above: Performed By: #### C VDTBH #### [facility] [address] [place] [address] Dr. Eliecer Das Parainfluenza 4 Not detected Normal NOT DETECTED [facility] Comment on above: Performed By: #### C VDTBH #### [facility] [address] [place] [address] Dr. Eliecer Das Rhino/Enterovirus Not detected Normal NOT DETECTED [facility] Comment on above: Performed By: #### C VDTBH #### [facility] [address] [place] [address] Dr. Eliecer Das RP2 Header 1 RESPIRATORY PANEL: VIRUSES Normal [facility] Comment on above: Performed By: #### C VDTBH #### [facility] [address] [place] [address] Dr. Eliecer SAENZ Header 2 RESPIRATORY PANEL: BACTERIA Normal [facility] Comment on above: Performed By: #### C VDTBH #### [facility] [address] [place] [address] Dr. Eliecer Das RSV Not detected Normal NOT DETECTED [facility] Comment on above: Performed By: #### C VDTBH #### [facility] [address] [place] [address] Dr. Eliecer Das SARS-CoV-2 (COVID-19) RNA PELON+probe Ql (Unsp spec) Not detected Normal NOT DETECTED [facility] Comment on above: Performed By: #### C VDTBH #### [facility] [address] [place] [address] Dr. Eliecer Das TROPONIN, HIGH SENSITIVITYon 03-02-2022 HSTROP 18.2 pg/mL Normal 4.0-51.3 [facility] Comment on above: Result Comment: CUT- OFF POINTS HAVE BEEN ESTABLISHED BASED ON THE FOURTH UNIVERSAL DEFINITIONS OF MYOCARDIAL INFARCTION. THE UPPER REFERENCE LIMIT (URL) OF TROPONIN, DEFINED THE 99TH PERCENTILE OF cTnI DISTRIBUTION IN A REFERENCE POPULATION, HAS BEEN CONFIRMED THE DECISION THRESHOLD FOR [place] DIAGNOSIS. Performed By: #### B LDCX2 #### [facility] [address] [address] [address] CSPINE WO CONon 2 CT CSPINE WO CON EXAMINATION: CT CSPI NE WO CON HISTORY: Right shoulder pain after fall COMPARISON: None. TECHNIQUE: CT Cervical spine without IV contrast. Coronal and sagittal reformations were performed. Dose reduction techniques were achieved by using automated exposure control and/or adjustment of mA and/or kV according to patient size and/or use of iterative reconstruction technique. FINDINGS: Maintenance of the normal cervical lordosis. Vertebral body heights and alignments exhibit no fracture or listhesis. Multilevel intervertebral disc space narrowing, endplate, uncovertebral and facet arthrosis. The dens and lateral masses of C1 are symmetric. No prevertebral soft tissue edema. No gross irregularity of the visualized skull base. The visualized airway, thoracic inlet and pulmonary apices exhibit no gross abnormality. The left thyroid gland is enlarged. Calcified foci within the mid aspect. IMPRESSION: Cervical spondylosis and degenerative disc disease with no acute cervical spine irregularity. Calcified foci within the mid aspect of the left thyroid gland. Outpatient evaluation is suggested Electronically authenticated by: BOBBY JUAREZ Date: 2022-03-01 21:48 Normal [facility] CT HEAD WO CONon 03-01-2022 CT HEAD WO CON Study: CT HEAD WO CO N HISTORY: DISORIENTATION, UNSPECIFIED Technique: CT images of the head were acquired without intravenous contrast. Dose reduction technique used: Automatic exposure control and/or adjustment of the mA and/or kV according to patient size and/or use of degenerative reconstruction technique. Comparisons: CT head without contrast 12/23/2021 Findings: BRAIN PARENCHYMA: No acute hemorrhage. No mass effect or herniation. No territorial loss of jones-white differentiation. Patchy deep white matter hypodensities are most compatible with chronic small vessel ischemic disease. Generalized parenchymal volume loss associated with ex vacuo dilation of the ventricles. The sellar contents appear normal. Bilateral cavernous carotid artery calcifications. VENTRICLE/EXTRA-AXIAL SPACES: No extra-axial fluid collections. EXTRACRANIAL STRUCTURES: Bilateral temporomandibular joint osteoarthrosis. Left temporal scalp hematoma. Mastoids are clear. There is ethmoid air cell mucosal thickening. ORBITS: Negative lenses are surgically absent. PARANASAL SINUSES: Normal. IMPRESSION: 1. No acute intracranial abnormality. 2. Left scalp hematoma. 3. Generalized parenchymal volume loss and changes of chronic small vessel ischemic disease. If the patient has a focal neurologic deficit or if there is clinical suspicion for acute cerebrovascular accident, MRI would be recommended for further evaluation. Electronically authenticated by: SURAJ KUNZ Date: 2022-03-01 21:50 Normal [facility] Covid-19 PCR (CVDTBH)on 02-14 SARS-CoV-2 (COVID-19) RNA PELON+probe Ql (Unsp spec) Not detected Normal NOT DETECTED [facility] Comment on above: Result Comment: When diagnostic testing is negative, the possibility of a false negative should be considered in the context of a patient's recent exposures and the presence of clinical signs and symptoms consistent with SARS-CoV-2. This test is not yet approved or cleared by the [place] FDA. When there are no FDA-approved or cleared tests available, and other criteria are met, FDA can make tests available under an emergency access mechanism called an Emergency Use Authorization (EUA). The EUA for this test is supported by the Manager Respiratory of Health and Human Service's declaration that circumstances exist to justify the emergency use of in vitro diagnostics for the detection and/or diagnosis of the virus that causes COVID-19. This EUA will remain in effect for the duration of the COVID-19 declaration justifying emergency of IVDs, unless it is terminated or revoked by the FDA (after which the test may no longer be used). Performed By: #### P OCGLUC #### [facility] [address] [place] [address] Dr. Eliecer Das ER URINE PROFILEon 2 Bilirubin Ql (U) Negative Normal NEGATIVE [facility] Comment on above: Performed By: #### U RCX #### [facility] [address] [place] [address] Dr. Eliecer Das Clarity (U) CLEAR Normal CLEAR [facility] Comment on above: Performed By: #### U RCX #### [facility] [address] [place] [address] Dr. Eliecer Das Color (U) DK. ORANGE Abnormal YELLOW [facility] Comment on above: Performed By: #### U RCX #### [facility] [address] [place] [address] Dr. Eliecer Das ERUAHEdwin A micrscopic examina tion will be performed if indicated. Normal [facility] l Comment on above: Performed By: #### U RCX #### [facility] [address] [place] [address] Dr. Eliecer Das Glucose Ql (U) Negative Normal NEGATIVE The [facility] Comment on above: Performed By: #### U RCX #### [facility] [address] [place] [address] Dr. Eliecer Das Hemoglobin Ql (U) Negative Normal NEGATIVE [facility] Comment on above: Performed By: #### U RCX #### [facility] [address] [place] [address] Dr. Eliecer Das Ketones Ql (U) Negative Normal NEGATIVE [facility] Comment on above: Performed By: #### U RCX #### [facility] [address] [place] [address] Dr. Eliecer Das LEUKOCYTES Negative Normal NEGATIVE [facility] Comment on above: Performed By: #### U RCX #### [facility] [address] [place] [address] Dr. Eliecer Das Nitrite Ql (U) Negative Normal NEGATIVE [facility] Comment on above: Performed By: #### U RCX #### [facility] [address] [place] [address] Dr. Eliecer Das pH (U) 6.0 [pH] Normal 5-9 [facility] Comment on above: Performed By: #### U RCX #### [facility] [address] [place] [address] Dr. Eliecer Das SPEC GRAVITY 1.020 Normal 1.005-<=1.025 [facility] Comment on above: Performed By: #### U RCX #### [facility] [address] [place] [address] Dr. Eliecer Das UA PROTEIN TRACE Normal NEGATIVE/ TRACE [facility] Comment on above: Performed By: #### U RCX #### [facility] [address] [place] [address] Dr. Eliecer Das UR MICRO IND NOT INDICATED Normal [facility] Comment on above: Performed By: #### U RCX #### [facility] [address] [place] [address] Dr. Eliecer Das Urobilinogen Qn (U) 1.0 {Narinder'U}/dL Normal 0.2 - 1. 0 [facility] Comment on above: Performed By: #### U RCX #### [facility] [address] [place] [address] Dr. Eliecer Das XR CHEST 1 Von 03-01-2022 XR CHEST 1 V EXAM: XR CHEST 1 V HISTORY: Pain after fall COMPARISON: Chest x-ray 02/13/2022 TECHNIQUE: Portable chest FINDINGS: The lung parenchyma is free of consolidation or infiltrate. No pneumothorax or pleural effusion. The cardiac, mediastinal and hilar contours are normal. Atherosclerosis of the aortic arch. No acute osseous abnormality IMPRESSION: No visualized acute abnormality Electronically authenticated by: BOBBY JUAREZ Date: 2022-03-01 20:16 Normal [facility] XR PELVIS 1_2 VIEWSon 2021 XR PELVIS 1_2 VIEWS EXAM: XR PELVIS 1_2 VIEWS HISTORY: Pain after fall COMPARISON: None. TECHNIQUE: AP pelvis FINDINGS: No gross fracture, dislocation, subluxation or osseous lesions. The hip joints, pubic symphysis and sacroiliac joints are unremarkable for patient's age. Postoperative changes of the lumbar spine. Small enthesophytes off the tendinous insertions. IMPRESSION: No acute abnormality. Electronically authenticated by: BOBBY JUAREZ Date: 2022-03-01 20:[address] [facility] l XR SHOULDER RT 2V or >on XR SHOULDER RT 2V or > EXAM: XR SHOULDER RT 2V or > HISTORY: Shoulder pain after fall COMPARISON: None. TECHNIQUE: 3 views FINDINGS: No fracture, dislocation or subluxation. Age-related changes of the acromioclavicular and to lesser degree glenohumeral joint. Spondylitic changes of the cervical and thoracic spine. No visualized rib fracture. The right hemithorax is unremarkable. IMPRESSION: No acute abnormality Electronically authenticated by: BOBBY JUAREZ Date: 2022-03-01 20:[address] [facility] l T4 LABCORPon 02-16-2022 T4 [Mass/Vol] 5.3 ug/dL Normal 4.5-12.0 [facility] Comment on above: Performed By: #### B LDCX2 #### [facility] [address] [place] [address] Dr. Eliecer Das CBC AUTO DIFFon 02-15-2022 BASO # 0.1 103/ul Normal 0.0-0.1 [facility] Comment on above: Performed By: #### P OCGLUC #### [facility] [address] [address] [address] Eliecer Das Basophils/100 WBC (Bld) 1.2 % Normal 0.2-2.0 [facility] Comment on above: Performed By: #### P OCGLUC #### [facility] [address] [place] [address] Dr. Eliecer Das EO # 0.3 103/ul Normal 0.0-0.7 [facility] Comment on above: Performed By: #### P OCGLUC #### [facility] [address] [address] [address] Eliecer Das Eosinophils/100 WBC (Bld) 4.6 % Normal 0.9-7.0 [facility] Comment on above: Performed By: #### P OCGLUC #### [facility] [address] [place] [address] Dr. Eliecer Das Erythrocyte distribution wid th (RBC) [Ratio] 13.5 % Normal 11.0-15.0 [facility] Comment on above: Performed By: #### P OCGLUC #### [facility] [address] [place] [address] Dr. Eliecer Das Hematocrit (Bld) [Volume fraction] 36.9 % Normal 3 6.0-48.0 [facility] Comment on above: Performed By: #### P OCGLUC #### [facility] [address] [place] [address] Dr. Eliecer Das Hemoglobin (Bld) [Mass/Vol] 12.0 g/dL Normal 12.0-16. 0 [facility] Comment on above: Performed By: #### P OCGLUC #### [facility] [address] [place] [address] Dr. Eliecer Das IG # 0.02 10e3/ul Normal 0.00-0.03 [facility] Comment on above: Performed By: #### P OCGLUC #### [facility] [address] [place] [address] Dr. Eliecer Das IG % 0.3 % Normal 0.0-0.5 [facility] Comment on above: Performed By: #### P OCGLUC #### [facility] [address] [place] [address] Dr. Eliecer Das LYMPH # 2.1 103/ul Normal 1.2-3.8 [facility] Comment on above: Performed By: #### P OCGLUC #### [facility] [address] [place] [address] Dr. Eliecer Das Lymphocytes/100 WBC (Bld) 35.6 % Normal 20.5-60.0 [facility] Comment on above: Performed By: #### P OCGLUC #### [facility] [address] [place] [address] Dr. Eliecer Das MANUAL DIFF REQ NO Normal [facility] Comment on above: Performed By: #### P OCGLUC #### [facility] [address] [place] [address] Dr. Eliecer Das MCH (RBC) [Entitic mass] 31.2 pg Normal 26.7-34.0 [facility] Comment on above: Performed By: #### P OCGLUC #### [facility] [address] [place] [address] Dr. Eliecer Das MCHC (RBC) [Mass/Vol] 32.5 g/dL Normal 29.9-35.2 [facility] Comment on above: Performed By: #### P OCGLUC #### [facility] [address] [place] [address] Dr. Eliecer Das MCV (RBC) [Entitic vol] 95.8 fL Normal 81.0-99.0 [facility] Comment on above: Performed By: #### P OCGLUC #### [facility] [address] [place] [address] Dr. Eliecer Das MONO # 0.7 103/ul Normal 0.3-0.8 [facility] Comment on above: Performed By: #### P OCGLUC #### [facility] [address] [place] [address] Dr. Eliecer Das Monocytes/100 WBC (Bld) 12.4 % Critically high 1.7-12. 0 [facility] Comment on above: Performed By: #### P OCGLUC #### [facility] [address] [place] [address] Dr. Eliecer Das NEUT # 2.7 103/ul Normal 1.4-6.5 [facility] Comment on above: Performed By: #### P OCGLUC #### [facility] [address] [place] [address] Dr. Eliecer Das Neutrophils/100 WBC (Bld) 45.9 % Normal 43.0-75.0 [facility] Comment on above: Performed By: #### P OCGLUC #### [facility] [address] [place] [address] Dr. Eliecer Das Platelet mean volume (Bld) [Entitic vol] 9.4 fL Critically low 9.5-13.5 [facility] Comment on above: Performed By: #### P OCGLUC #### [facility] [address] [place] [address] Dr. Eliecre Das PLT 183 103/ul Normal 150-450 [facility] Comment on above: Performed By: #### P OCGLUC #### [facility] [address] [place] [address] Dr. Eliecer Das RBC 3.85 106/ul Critically low 4.20-5.40 [facility] Comment on above: Performed By: #### P OCGLUC #### [facility] [address] [place] [address] Dr. Eliecer Das WBC 5.8 103/ul Normal 4.0-11.0 [facility] Comment on above: Performed By: #### P OCGLUC #### [facility] [address] [place] [address] Dr. Eliecer Das CULTURE URINEon 02-15-2022 CULTURE URINE Isolate 1 Escherichia coli >100,000 cfu/mL of ORGANISM 1 Escherichia coli ANTIBIOTIC M.I.C RX STATUS Ampicillin >=32 R F Ampicillin/Sulbactam >=32 R F Piperacillin/Tazobactam <=4 S F Cefazolin 8 S F Ceftazidime <=1 S F Ceftriaxone <=1 S F Ertapenem <=0.5 S F Imipenem <=0.25 S F Amikacin <=2 S F Gentamicin <=1 S F Tobramycin <=1 S F Ciprofloxacin <=0.25 S F Levofloxacin 0.5 S F Nitrofurantoin <=16 S F Trimethoprim/Sulfamethoxazole >=320 R F Normal [facility] Comment on above: Performed By: #### U RCX #### [facility] [address] [place] [address] Dr. Eliecer Das POINT OF CARE GLUCOSEon Glucose [Mass/Vol] 127 mg/dL Critically high 74-106 [facility] Comment on above: Performed By: #### B [id number] #### [facility] [address] [place] [address] Dr. Eliecer Das PROF 14(COMP METB)on 022 Albumin [Mass/Vol] 2.2 g/dL Critically low 3.4-5.0 [facility] Comment on above: Performed By: #### B [id number] #### [facility] [address] [address] [address] Eliecer Das Albumin/Globulin [Mass ratio] 0.6 {ratio} Normal [facility] Comment on above: Performed By: #### B [id number] #### [facility] [address] [address] [address] Eliecer Das ALP [Catalytic activity/Vol] 60 U/L Normal 46-116 [facility] Comment on above: Performed By: #### B [id number] #### [facility] [address] [address] [address] Eliecer Das ALT [Catalytic activity/Vol] 26 U/L Normal 14-59 [facility] Comment on above: Performed By: #### B [id number] #### [facility] [address] [address] [address] Eliecer Das Anion gap [Moles/Vol] 10.7 mmol/L Normal [facility] Comment on above: Performed By: #### B [id number] #### [facility] [address] [address] [address] Eliecer Das AST [Catalytic activity/Vol] 31 U/L Normal 15-37 [facility] Comment on above: Performed By: #### B [id number] #### [facility] [address] [address] [address] Eliecer Das Bilirubin [Mass/Vol] 0.7 mg/dL Normal 0.2-1.0 [facility] Comment on above: Performed By: #### B [id number] #### [facility] [address] [address] [address] Eliecer Das Calcium [Mass/Vol] 8.0 mg/dL Critically low 8.5-10.1 [facility] Comment on above: Performed By: #### B [id number] #### [facility] [address] [address] [address] Eliecer Das Chloride [Moles/Vol] 110 mmol/L Critically high 98-107 [facility] Comment on above: Performed By: #### B [id number] #### [facility] [address] [address] [address] Eliecer Das CO2 [Moles/Vol] 26.8 mmol/L Normal 21.0-32.0 [facility] Comment on above: Performed By: #### B [id number] #### [facility] [address] [address] [address] Eliecer Das Creatinine [Mass/Vol] 0.69 mg/dL Normal 0.55-1.02 [facility] Comment on above: Performed By: #### B [id number] #### [facility] [address] [address] [address] Eliecer Das EGFR-AF COLOMBIAN >60 Normal >=60 [facility] Comment on above: Performed By: #### B [id number] #### [facility] [address] [address] [address] Eliecer Das EGFR-NON AF COLOMBIAN >60 Normal >=60 [facility] Comment on above: Performed By: #### B [id number] #### [facility] [address] [address] [address] Eliecer Das Globulin (S) [Mass/Vol] 3.4 g/dL Normal [facility] Comment on above: Performed By: #### B [id number] #### [facility] [address] [address] [address] Eliecer Das Glucose [Mass/Vol] 123 mg/dL Critically high 74-106 [facility] Comment on above: Performed By: #### B [id number] #### [facility] [address] [address] [address] Eliecer Das Potassium [Moles/Vol] 3.5 mmol/L Normal 3.5-5.1 [facility] Comment on above: Performed By: #### B [id number] #### [facility] [address] [address] [address] Eliecer Das Protein [Mass/Vol] 5.6 g/dL Critically low 6.4-8.2 [facility] Comment on above: Performed By: #### B [id number] #### [facility] [address] [place] [address] Dr. Eliecer Das Sodium [Moles/Vol] 144 mmol/L Normal 136-145 [facility] Comment on above: Performed By: #### B [id number] #### [facility] [address] [place] [address] Dr. Eliecer Das Urea nitrogen [Mass/Vol] 9.0 mg/dL Normal 7.0-18.0 [facility] Comment on above: Performed By: #### B [id number] #### [facility] [address] [place] [address] Dr. Eliecer Das Urea nitrogen/Creatinine [Mass ratio] 13.0 mg/mg Normal [facility] Comment on above: Performed By: #### B [id number] #### [facility] [address] [place] [address] Dr. Eliecer Das CBC AUTO DIFFon 02-14-2022 BASO # 0.1 103/ul Normal 0.0-0.1 [facility] Comment on above: Performed By: #### B [id number] #### [facility] [address] [place] [address] Dr. Eliecer Das Basophils/100 WBC (Bld) 1.0 % Normal 0.2-2.0 [facility] Comment on above: Performed By: #### B [id number] #### [facility] [address] [place] [address] Dr. Eliecer Das EO # 0.3 103/ul Normal 0.0-0.7 [facility] Comment on above: Performed By: #### B [id number] #### [facility] [address] [place] [address] Dr. Eliecer Das Eosinophils/100 WBC (Bld) 4.4 % Normal 0.9-7.0 [facility] Comment on above: Performed By: #### B [id number] #### [facility] [address] [place] [address] Dr. Eliecer Das Erythrocyte distribution wid th (RBC) [Ratio] 13.6 % Normal 11.0-15.0 [facility] Comment on above: Performed By: #### B [id number] #### [facility] [address] [place] [address] Dr. Eliecer Das Hematocrit (Bld) [Volume fraction] 38.4 % Normal 3 6.0-48.0 [facility] Comment on above: Performed By: #### B [id number] #### [facility] [address] [place] [address] Dr. Eliecer Das Hemoglobin (Bld) [Mass/Vol] 12.3 g/dL Normal 12.0-16. 0 [facility] Comment on above: Performed By: #### B [id number] #### [facility] [address] [place] [address] Dr. Eliecer Das IG # 0.04 10e3/ul Critically high 0.00-0.03 [facility] Comment on above: Performed By: #### B [id number] #### [facility] [address] [place] [address] Dr. Eliecer Das IG % 0.7 % Critically high 0.0-0.5 [facility] Comment on above: Performed By: #### B [id number] #### [facility] [address] [place] [address] Dr. Eliecer Das LYMPH # 2.5 103/ul Normal 1.2-3.8 [facility] Comment on above: Performed By: #### B [id number] #### [facility] [address] [place] [address] Dr. Eliecer Das Lymphocytes/100 WBC (Bld) 40.7 % Normal 20.5-60.0 [facility] Comment on above: Performed By: #### B [id number] #### [facility] [address] [place] [address] Dr. Eliecer Das MANUAL DIFF REQ NO Normal [facility] Comment on above: Performed By: #### B [id number] #### [facility] [address] [place] [address] Dr. Eliecer Das MCH (RBC) [Entitic mass] 30.7 pg Normal 26.7-34.0 [facility] Comment on above: Performed By: #### B [id number] #### [facility] [address] [place] [address] Dr. Eliecer Das MCHC (RBC) [Mass/Vol] 32.0 g/dL Normal 29.9-35.2 [facility] Comment on above: Performed By: #### B [id number] #### [facility] [address] [place] [address] Dr. Eliecer Das MCV (RBC) [Entitic vol] 95.8 fL Normal 81.0-99.0 [facility] Comment on above: Performed By: #### B [id number] #### [facility] [address] [place] [address] Dr. Eliecer Das MONO # 0.7 103/ul Normal 0.3-0.8 [facility] Comment on above: Performed By: #### B [id number] #### [facility] [address] [place] [address] Dr. Eliecer Das Monocytes/100 WBC (Bld) 11.5 % Normal 1.7-12.0 [facility] Comment on above: Performed By: #### B [id number] #### [facility] [address] [place] [address] Dr. Eliecer Das NEUT # 2.6 103/ul Normal 1.4-6.5 [facility] Comment on above: Performed By: #### B [id number] #### [facility] [address] [place] [address] Dr. Eliecer Das Neutrophils/100 WBC (Bld) 41.7 % Critically low 43.0-7 5.0 [facility] Comment on above: Performed By: #### B [id number] #### [facility] [address] [place] [address] Dr. Eliecer Das Platelet mean volume (Bld) [Entitic vol] 9.5 fL Normal 9.5-13.5 [facility] Comment on above: Performed By: #### B [id number] #### [facility] [address] [address] [address] Eliecer Das PLT 215 103/ul Normal 150-450 [facility] Comment on above: Performed By: #### B [id number] #### [facility] [address] [address] [address] Eliecer Das RBC 4.01 106/ul Critically low 4.20-5.40 [facility] Comment on above: Performed By: #### B [id number] #### [facility] [address] [address] [address] Eliecer Das WBC 6.1 103/ul Normal 4.0-11.0 [facility] Comment on above: Performed By: #### B [id number] #### [facility] [address] [place] [address] Dr. Eliecer Das POINT OF CARE GLUCOSEon 06-0 Glucose [Mass/Vol] 100 mg/dL Normal 74-106 [facility] Comment on above: Performed By: #### U RCX #### [facility] [address] [place] [address] Dr. Eliecer Das Glucose [Mass/Vol] 95 mg/dL Normal 74-106 [facility] Comment on above: Performed By: #### B [id number] #### [facility] [address] [address] [address] Eliecer Das Glucose [Mass/Vol] 107 mg/dL Critically high 74-106 [facility] Comment on above: Performed By: #### B [id number] #### [facility] [address] [address] [address] Eliecer Das Glucose [Mass/Vol] 194 mg/dL Critically high 74-106 [facility] Comment on above: Performed By: #### C VDTBH #### [facility] [address] [place] [address] Dr. Eliecer Das Glucose [Mass/Vol] 105 mg/dL Normal 74-106 [facility] Comment on above: Performed By: #### B [id number] #### [facility] [address] [address] [address] Eliecer Das PROF 14(COMP METB)on 022 Albumin [Mass/Vol] 2.2 g/dL Critically low 3.4-5.0 [facility] Comment on above: Performed By: #### U RCX #### [facility] [address] [place] [address] Dr. Eliecer Das Albumin/Globulin [Mass ratio] 0.6 {ratio} Normal [facility] Comment on above: Performed By: #### U RCX #### [facility] [address] [address] [address] Eliecer Das ALP [Catalytic activity/Vol] 56 U/L Normal 46-116 [facility] Comment on above: Performed By: #### U RCX #### [facility] [address] [place] [address] Dr. Eliecer Das ALT [Catalytic activity/Vol] 30 U/L Normal 14-59 [facility] Comment on above: Performed By: #### U RCX #### [facility] [address] [place] [address] Dr. Eliecer Das Anion gap [Moles/Vol] 12.2 mmol/L Normal [facility] Comment on above: Performed By: #### U RCX #### [facility] [address] [place] [address] Dr. Eliecer Das AST [Catalytic activity/Vol] 43 U/L Critically high 15 -37 [facility] Comment on above: Performed By: #### U RCX #### [facility] [address] [place] [address] Dr. Eliecer Das Bilirubin [Mass/Vol] 1.5 mg/dL Critically high 0.2-1.0 [facility] Comment on above: Performed By: #### U RCX #### [facility] [address] [place] [address] Dr. Eliecer Das Calcium [Mass/Vol] 8.1 mg/dL Critically low 8.5-10.1 [facility] Comment on above: Performed By: #### U RCX #### [facility] [address] [address] [address] Eliecer Das Chloride [Moles/Vol] 110 mmol/L Critically high 98-107 [facility] Comment on above: Performed By: #### U RCX #### [facility] [address] [address] [address] Eliecer Das CO2 [Moles/Vol] 26.7 mmol/L Normal 21.0-32.0 [facility] Comment on above: Performed By: #### U RCX #### [facility] [address] [address] [address] Eliecer Das Creatinine [Mass/Vol] 0.71 mg/dL Normal 0.55-1.02 [facility] Comment on above: Performed By: #### U RCX #### [facility] [address] [address] [address] Eliecer Das EGFR-AF COLOMBIAN >60 Normal >=60 [facility] Comment on above: Performed By: #### U RCX #### [facility] [address] [address] [address] Eliecer Das EGFR-NON AF COLOMBIAN >60 Normal >=60 [facility] Comment on above: Performed By: #### U RCX #### [facility] [address] [address] [address] Eliecer Das Globulin (S) [Mass/Vol] 3.5 g/dL Normal [facility] Comment on above: Performed By: #### U RCX #### [facility] [address] [address] [address] Eliecer Das Glucose [Mass/Vol] 82 mg/dL Normal 74-106 [facility] Comment on above: Performed By: #### U RCX #### [facility] [address] [address] [address] Eliecer Das Potassium [Moles/Vol] 3.9 mmol/L Normal 3.5-5.1 [facility] Comment on above: Performed By: #### U RCX #### [facility] [address] [place] [address] Dr. Eliecer Das Protein [Mass/Vol] 5.7 g/dL Critically low 6.4-8.2 [facility] Comment on above: Performed By: #### U RCX #### [facility] [address] [place] [address] Dr. Eliecer Das Sodium [Moles/Vol] 145 mmol/L Normal 136-145 [facility] Comment on above: Performed By: #### U RCX #### [facility] [address] [place] [address] Dr. Eliecer Das Urea nitrogen [Mass/Vol] 8.0 mg/dL Normal 7.0-18.0 [facility] Comment on above: Performed By: #### U RCX #### [facility] [address] [place] [address] Dr. Eliecer Das Urea nitrogen/Creatinine [Mass ratio] 11.3 mg/mg Normal [facility] Comment on above: Performed By: #### U RCX #### [facility] [address] [place] [address] Dr. Eliecer Das TSHon 02-14-2022 TSH 1.050 uIU/mL Normal 0.358-3.740 [facility] Comment on above: Performed By: #### U RCX #### [facility] [address] [place] [address] Dr. Eliecer Das TSH RANGE SEE BELOW Normal [facility] Comment on above: Result Comment: <0.3 4 UIU/ml HYPERTHYROID 0.34-5.60 UIU/ml EUTHYROID >5.60 UIU/ml HYPOTHYROID Performed By: #### U RCX #### [facility] [address] [place] [address] Dr. Eliecer Das BNPon 02-13-2022 Natriuretic peptide B (Bld) [Mass/Vol] 87.0 pg/mL Normal <=1,800.0 [facility] Comment on above: Performed By: #### B LDCX2 #### [facility] [address] [place] [address] Dr. Eliecer Das CBC AUTO DIFFon 02-13-2022 BASO # 0.1 103/ul Normal 0.0-0.1 [facility] Comment on above: Performed By: #### P OCGLUC #### [facility] [address] [place] [address] Dr. Eliecer Das Basophils/100 WBC (Bld) 1.4 % Normal 0.2-2.0 [facility] Comment on above: Performed By: #### P OCGLUC #### [facility] [address] [place] [address] Dr. Eliecer Das EO # 0.2 103/ul Normal 0.0-0.7 [facility] Comment on above: Performed By: #### P OCGLUC #### [facility] [address] [place] [address] Dr. Eliecer Das Eosinophils/100 WBC (Bld) 3.8 % Normal 0.9-7.0 [facility] Comment on above: Performed By: #### P OCGLUC #### [facility] [address] [place] [address] Dr. Eliecer Das Erythrocyte distribution wid th (RBC) [Ratio] 13.6 % Normal 11.0-15.0 [facility] Comment on above: Performed By: #### P OCGLUC #### [facility] [address] [place] [address] Dr. Eliecer Das Hematocrit (Bld) [Volume fraction] 46.3 % Normal 3 6.0-48.0 [facility] Comment on above: Performed By: #### P OCGLUC #### [facility] [address] [place] [address] Dr. Eliecer Das Hemoglobin (Bld) [Mass/Vol] 14.8 g/dL Normal 12.0-16. 0 [facility] Comment on above: Performed By: #### P OCGLUC #### [facility] [address] [place] [address] Dr. Elieecr Das IG # 0.03 10e3/ul Normal 0.00-0.03 [facility] Comment on above: Performed By: #### P OCGLUC #### [facility] [address] [address] [address] Eliecer Das IG % 0.5 % Normal 0.0-0.5 [facility] Comment on above: Performed By: #### P OCGLUC #### [facility] [address] [address] [address] Eliecer Das LYMPH # 1.8 103/ul Normal 1.2-3.8 [facility] Comment on above: Performed By: #### P OCGLUC #### [facility] [address] [address] [address] Eliecer Das Lymphocytes/100 WBC (Bld) 28.2 % Normal 20.5-60.0 [facility] Comment on above: Performed By: #### P OCGLUC #### [facility] [address] [address] [address] Eliecer Das MANUAL DIFF REQ NO Normal [facility] Comment on above: Performed By: #### P OCGLUC #### [facility] [address] [address] [address] Eliecer Das MCH (RBC) [Entitic mass] 31.1 pg Normal 26.7-34.0 [facility] Comment on above: Performed By: #### P OCGLUC #### [facility] [address] [address] [address] Eliecer Das MCHC (RBC) [Mass/Vol] 32.0 g/dL Normal 29.9-35.2 [facility] Comment on above: Performed By: #### P OCGLUC #### [facility] [address] [address] [address] Eliecer Das MCV (RBC) [Entitic vol] 97.3 fL Normal 81.0-99.0 [facility] Comment on above: Performed By: #### P OCGLUC #### [facility] [address] [address] [address] Eliecer Das MONO # 0.6 103/ul Normal 0.3-0.8 [facility] Comment on above: Performed By: #### P OCGLUC #### [facility] [address] [place] [address] Dr. Eliecer Das Monocytes/100 WBC (Bld) 9.1 % Normal 1.7-12.0 [facility] Comment on above: Performed By: #### P OCGLUC #### [facility] [address] [place] [address] Dr. Eliecer Das NEUT # 3.6 103/ul Normal 1.4-6.5 [facility] Comment on above: Performed By: #### P OCGLUC #### [facility] [address] [place] [address] Dr. Eliecer Das Neutrophils/100 WBC (Bld) 57.0 % Normal 43.0-75.0 [facility] Comment on above: Performed By: #### P OCGLUC #### [facility] [address] [place] [address] Dr. Eliecer Das Platelet mean volume (Bld) [Entitic vol] 9.4 fL Critically low 9.5-13.5 [facility] Comment on above: Performed By: #### P OCGLUC #### [facility] [address] [place] [address] Dr. Eliecer Das PLT 239 103/ul Normal 150-450 [facility] Comment on above: Performed By: #### P OCGLUC #### [facility] [address] [place] [address] Dr. Eliecer Das RBC 4.76 106/ul Normal 4.20-5.40 [facility] Comment on above: Performed By: #### P OCGLUC #### [facility] [address] [place] [address] Dr. Eliecer Das WBC 6.3 103/ul Normal 4.0-11.0 [facility] Comment on above: Performed By: #### P OCGLUC #### [facility] [address] [place] [address] Dr. Eliecer Das CULTURE BLOODon 02-13-2022 Microscopic examination of blood, culture Culture Observations: NO GROWTH AT 5 DAYS. Normal [facility] Comment on above: Performed By: #### B [id number] #### [facility] [address] [place] [address] Dr. Eliecer Das Microscopic examination of blood, culture Culture Observations: NO GROWTH AT 5 DAYS. Normal [facility] Comment on above: Performed By: #### C VDTBH #### [facility] [address] [place] [address] Dr. Eliecer Das Covid-19 PCR ([facility])on 01-16 SARS-CoV-2 (COVID-19) RNA PELON+probe Ql (Unsp spec) Not detected Normal NOT DETECTED [facility] Comment on above: Result Comment: When diagnostic testing is negative, the possibility of a false negative should be considered in the context of a patient's recent exposures and the presence of clinical signs and symptoms consistent with SARS-CoV-2. This test is not yet approved or cleared by the [place] FDA. When there are no FDA-approved or cleared tests available, and other criteria are met, FDA can make tests available under an emergency access mechanism called an Emergency Use Authorization (EUA). The EUA for this test is supported by the Manager Respiratory of Health and Human Service's declaration that circumstances exist to justify the emergency use of in vitro diagnostics for the detection and/or diagnosis of the virus that causes COVID-19. This EUA will remain in effect for the duration of the COVID-19 declaration justifying emergency of IVDs, unless it is terminated or revoked by the FDA (after which the test may no longer be used). Performed By: #### U RCX #### [facility] [address] [place] [address] Dr. Eliecer Das ER URINE PROFILEon 2 Bilirubin Ql (U) Negative Normal NEGATIVE [facility] Comment on above: Performed By: #### P OCGLUC #### [facility] [address] [place] [address] Dr. Eliecer Das Clarity (U) CLEAR Normal CLEAR [facility] Comment on above: Performed By: #### P OCGLUC #### [facility] [address] [address] [address] Eliecer Das Color (U) YELLOW Normal YELLOW [facility] Comment on above: Performed By: #### P OCGLUC #### [facility] [address] [place] [address] Dr. Eliecer GRAHAM A micrscopic examina tion will be performed if indicated. Normal [facility] Comment on above: Performed By: #### P OCGLUC #### [facility] [address] [place] [address] Dr. Eliecer Das Glucose Ql (U) Negative Normal NEGATIVE [facility] Comment on above: Performed By: #### P OCGLUC #### [facility] [address] [place] [address] Dr. Eliecer Das Hemoglobin Ql (U) Negative Normal NEGATIVE [facility] Comment on above: Performed By: #### P OCGLUC #### [facility] [address] [place] [address] Dr. Eliecer Das Ketones Ql (U) Negative Normal NEGATIVE [facility] Comment on above: Performed By: #### P OCGLUC #### [facility] [address] [place] [address] Dr. Eliecer Das LEUKOCYTES TRACE Abnormal NEGATIVE [facility] Comment on above: Performed By: #### P OCGLUC #### [facility] [address] [place] [address] Dr. Eliecer Das Nitrite Ql (U) Positive Abnormal NEGATIVE [facility] Comment on above: Performed By: #### P OCGLUC #### [facility] [address] [place] [address] Dr. Eliecer Das pH (U) 5.5 [pH] Normal 5-9 [facility] Comment on above: Performed By: #### P OCGLUC #### [facility] [address] [place] [address] Dr. Eliecer Das SPEC GRAVITY 1.025 Normal 1.005-<=1.025 [facility] Comment on above: Performed By: #### P OCGLUC #### [facility] [address] [address] [address] Eliecer Das UA PROTEIN Negative Normal NEGATIVE/ TRACE [facility] Comment on above: Performed By: #### P OCGLUC #### [facility] [address] [address] [address] Eliecer Das UR MICRO IND INDICATED Normal [facility] Comment on above: Performed By: #### P OCGLUC #### [facility] [address] [place] [address] Dr. Eliecer Das Urobilinogen Qn (U) 0.2 {Narinder'U}/dL Normal 0.2 - 1. 0 [facility] Comment on above: Performed By: #### P OCGLUC #### [facility] [address] [place] [address] Dr. Eliecer Das LACTATE/LACTIC ACIDon 2021 Lactate [Moles/Vol] 2.1 mmol/L Critically high 0.4-1.9 [facility] Comment on above: Performed By: #### B [id number] #### [facility] [address] [place] [address] Dr. Eliecer Das Lactate [Moles/Vol] 2.5 mmol/L Critically high 0.4-1.9 [facility] Comment on above: Performed By: #### B LDCX1 #### [facility] [address] [place] [address] Dr. Eliecer Das POINT OF CARE GLUCOSEon 01-16 Glucose [Mass/Vol] 131 mg/dL Critically high 74-[address] [facility] Comment on above: Performed By: #### B LDCX1 #### [facility] [address] [place] [address] Dr. Eliecer Das PROF 14(COMP METB)on 022 Albumin [Mass/Vol] 2.8 g/dL Critically low 3.4-5.0 [facility] Comment on above: Performed By: #### B LDCX2 #### [facility] [address] [place] [address] Dr. Eliecer Das Albumin/Globulin [Mass ratio] 0.6 {ratio} Normal [facility] Comment on above: Performed By: #### B LDCX2 #### [facility] [address] [address] [address] Eliecer Das ALP [Catalytic activity/Vol] 75 U/L Normal 46-116 [facility] Comment on above: Performed By: #### B LDCX2 #### [facility] [address] [address] [address] Eliecer Das ALT [Catalytic activity/Vol] 33 U/L Normal 14-59 [facility] Comment on above: Performed By: #### B LDCX2 #### [facility] [address] [address] [address] Eliecer Das Anion gap [Moles/Vol] 10.5 mmol/L Normal [facility] Comment on above: Performed By: #### B LDCX2 #### [facility] [address] [address] [address] Eliecer Das AST [Catalytic activity/Vol] 52 U/L Critically high 15 -37 [facility] Comment on above: Performed By: #### B LDCX2 #### [facility] [address] [address] [address] Eliecer Das Bilirubin [Mass/Vol] 1.9 mg/dL Critically high 0.2-1.0 [facility] Comment on above: Performed By: #### B LDCX2 #### [facility] [address] [address] [address] Eliecer Das Calcium [Mass/Vol] 9.5 mg/dL Normal 8.5-10.1 [facility] Comment on above: Performed By: #### B LDCX2 #### [facility] [address] [address] [address] Eliecer Das Chloride [Moles/Vol] 107 mmol/L Normal 98-107 [facility] Comment on above: Performed By: #### B LDCX2 #### [facility] [address] [address] [address] Eliecer Das CO2 [Moles/Vol] 27.4 mmol/L Normal 21.0-32.0 [facility] Comment on above: Performed By: #### B LDCX2 #### [facility] [address] [address] [address] Eliecer Das Creatinine [Mass/Vol] 0.86 mg/dL Normal 0.55-1.02 [facility] Comment on above: Performed By: #### B LDCX2 #### [facility] [address] [address] [address] Eliecer Das EGFR-AF COLOMBIAN >60 Normal >=60 [facility] Comment on above: Performed By: #### B LDCX2 #### [facility] [address] [address] [address] Eliecer Das EGFR-NON AF COLOMBIAN >60 Normal >=60 [facility] Comment on above: Performed By: #### B LDCX2 #### [facility] [address] [address] [address] Eliecer Das Globulin (S) [Mass/Vol] 4.4 g/dL Normal [facility] Comment on above: Performed By: #### B LDCX2 #### [facility] [address] [address] [address] Eliecer Das Glucose [Mass/Vol] 136 mg/dL Critically high 74-106 [facility] Comment on above: Performed By: #### B LDCX2 #### [facility] [address] [address] [address] Eliecer Das Potassium [Moles/Vol] 3.9 mmol/L Normal 3.5-5.1 [facility] Comment on above: Performed By: #### B LDCX2 #### [facility] [address] [address] [address] Eliecer Das Protein [Mass/Vol] 7.2 g/dL Normal 6.4-8.2 [facility] Comment on above: Performed By: #### B LDCX2 #### [facility] [address] [address] [address] Eliecer Das Sodium [Moles/Vol] 141 mmol/L Normal 136-145 [facility] Comment on above: Performed By: #### B LDCX2 #### [facility] [address] [address] [address] Eliecer Das Urea nitrogen [Mass/Vol] 10.0 mg/dL Normal 7.0-18.0 [facility] Comment on above: Performed By: #### B LDCX2 #### [facility] [address] [address] [address] Eliecer Das Urea nitrogen/Creatinine [Mass ratio] 11.6 mg/mg Normal [facility] Comment on above: Performed By: #### B LDCX2 #### [facility] [address] [place] [address] Dr. Eliecer Das PROTIMEon 02-13-2022 INR Coag (PPP) [Relative time] 1.16 {INR} Normal [facility] Comment on above: Performed By: #### B LDCX1 #### [facility] [address] [place] [address] Dr. Eliecer Das INR GUIDELINES SEE BELOW Normal [facility] Comment on above: Result Comment: KAITY RED INR: 2.0 - 3.0 CONDITIONS NOT LISTED BELOW 2.5 - 3.5 FOR PROSTHETIC HEART VALVE REPLACEMENT 2.5 - 3.5 RECURRENT THROMBOSIS Performed By: #### B [id number] #### [facility] [address] [place] [address] Dr. Eliecer Das PT Coag (PPP) [Time] 12.4 s Critically high 9.0-11.6 [facility] Comment on above: Performed By: #### B [id number] #### [facility] [address] [place] [address] Dr. Eliecer Das TROPONIN, HIGH SENSITIVITYon 02-13-2022 HSTROP 9.4 pg/mL Normal 4.0-51.3 [facility] Comment on above: Result Comment: CUT- OFF POINTS HAVE BEEN ESTABLISHED BASED ON THE FOURTH UNIVERSAL DEFINITIONS OF MYOCARDIAL INFARCTION. THE UPPER REFERENCE LIMIT (URL) OF TROPONIN, DEFINED THE 99TH PERCENTILE OF cTnI DISTRIBUTION IN A REFERENCE POPULATION, HAS BEEN CONFIRMED THE DECISION THRESHOLD FOR [place] DIAGNOSIS. Performed By: #### B LDCX2 #### [facility] [address] [place] [address] Dr. Eliecer Das URINE MICROSCOPIC ONLYon BACTERIA LARGE Abnormal NONE SEEN [facility] Comment on above: Performed By: #### P OCGLUC #### [facility] [address] [place] [address] Dr. Eliecer Das Bacteria identified Cx Nom (U) INDICATED Normal [facility] Comment on above: Performed By: #### P OCGLUC #### [facility] [address] [place] [address] Dr. Eliecer Das CAST NONE SEEN Normal NONE SEEN [facility] Comment on above: Performed By: #### P OCGLUC #### [facility] [address] [place] [address] Dr. Eliecer Das Crystals LM Nom (Urine sed) NONE SEEN Normal NONE SEE N [facility] Comment on above: Performed By: #### P OCGLUC #### [facility] [address] [place] [address] Dr. Eliecer Das Epithelial cells LM Ql (Urine sed) FEW Abnormal N ONE SEEN /RARE [facility] Comment on above: Performed By: #### P OCGLUC #### [facility] [address] [place] [address] Dr. Eliecer Das MUCOUS NONE SEEN Normal NONE SEEN [facility] Comment on above: Performed By: #### P OCGLUC #### [facility] [address] [place] [address] Dr. Eliecer Das RBC 0-2 Normal 0-2 [facility] Comment on above: Performed By: #### P OCGLUC #### [facility] [address] [place] [address] Dr. Eliecer Das WBC 5-10 Abnormal NONE SEEN [facility] Comment on above: Performed By: #### P OCGLUC #### [facility] [address] [place] [address] Dr. Eliecer Das XR CHEST 1 Von 02-13-2022 XR CHEST 1 V EXAMINATION: XR CHES T 1 V HISTORY: SHORTNESS OF BREATH COMPARISON: 12/23/2021 TECHNIQUE: AP portable erect FINDINGS: LUNGS: Moderate left basilar infiltrate obscuring the hemidiaphragm. The right lung is clear VASCULATURE: No increased pulmonary vasculature. PLEURA: No pneumothorax. Suspected left pleural effusion CARDIAC: Stable cardiomegaly MEDIASTINUM: Aortic atherosclerosis BONES: Mild degenerative disc disease and spondylosis without visible acute abnormalities. OTHER: Negative. IMPRESSION: Moderate left basilar infiltrate likely combination of parenchymal consolidation and pleural effusion Electronically authenticated by: BOBBY RAMACHANDRAN Date: 2022-02-13 13:21 Normal [facility] A1C HEMOGLOBINon 11-30-2021 HbA1c (Bld) [Mass fraction] 5.3 % [facility] Other HbA1c (Bld) [Mass fraction]o n 11-30-2021 A1C HEMOGLOBIN [facility] Other A1C HEMOGLOBINon 08-28-2021 HbA1c (Bld) [Mass fraction] 5.5 % [facility] Other HbA1c (Bld) [Mass fraction]o n 08-28-2021 A1C HEMOGLOBIN [facility] Other COVID Quick Testingon 2020 Result Negative [facility] Other Vital Signs Date Time Vital Sign Value Performing Clinician Facility 08-01-2023 14:30-0500 Body height 143.51 cm Fatoumata Chase Other [facility] Other 08-01-2023 14:30-0500 Body mass index (BMI) [Ratio] 35.9 kg/m2 Fatoumata Chase Other [facility] Other 08-01-2023 14:30-0500 Body weight 73.94 kg Fatoumata Chase Other [facility] Other 08-01-2023 14:30-0500 Diastolic blood pressure 83 mm[Hg] Fatoumata Chase Other [facility] Other 08-01-2023 14:30-0500 Systolic blood pressure 143 mm[Hg] Fatoumata Chase Other [facility] Other 07-24-2023 13:00-0500 Body height 143.51 cm Morena Chuy Other [facility] Other 07-24-2023 13:00-0500 Body mass index (BMI) [Ratio] 35.68 kg/m2 Morena Chuy Other [facility] Other 07-24-2023 13:00-0500 Body temperature 98 [degF] Morena Chuy Other [facility] Other 07-24-2023 13:00-0500 Body weight 73.48 kg Morena Chuy Other [facility] Other 07-24-2023 13:00-0500 Diastolic blood pressure 72 mm[Hg] Morena Chuy Other [facility] Other 07-24-2023 13:00-0500 SaO2% (BldA) [Mass fraction] 97 % Morena Chuy Other [facility] Other 07-24-2023 13:00-0500 Systolic blood pressure 142 mm[Hg] Morena Chuy Other [facility] Other 07-16-2023 15:45-0400 Body height 143.51 cm Fatoumata Chase Other [facility] Other 07-16-2023 15:45-0400 Body mass index (BMI) [Ratio] 37 kg/m2 Staci Asencio Other [facility] Other 07-16-2023 15:45-0400 Body temperature 97.6 [degF] Staci Elif Other [facility] Other 07-16-2023 15:45-0400 Body weight 76.2 kg Staci Elif Other [facility] Other 07-16-2023 15:45-0400 Diastolic blood pressure 56 mm[Hg] Staci Elif Other [facility] Other 07-16-2023 15:45-0400 Respiratory rate 20 /min Staci Elif Other [facility] Other 07-16-2023 15:45-0400 SaO2% (BldA) [Mass fraction] 99 % Staci Elif Other [facility] Other 07-16-2023 15:45-0400 Systolic blood pressure 113 mm[Hg] Staci Elif Other [facility] Other 07-16-2023 11:00-0400 Body mass index (BMI) [Ratio] 36.69 kg/m2 Fatoumata Chase Other [facility] Other 07-16-2023 11:00-0400 Body weight 75.57 kg Fatoumata Chase Other [facility] Other 07-16-2023 11:00-0400 Diastolic blood pressure 68 mm[Hg] Fatoumata Chase Other [facility] Other 07-16-2023 11:00-0400 Systolic blood pressure 100 mm[Hg] Fatoumata Chase Other [facility] Other 04-26-2023 14:00-0400 Body height 143.51 cm Fatoumata Chase Other [facility] Other 04-26-2023 14:00-0400 Body mass index (BMI) [Ratio] 39.2 kg/m2 Fatoumata Chase Other [facility] Other 04-26-2023 14:00-0400 Body weight 80.74 kg Fatoumata Chase Other [facility] Other 04-26-2023 14:00-0400 Diastolic blood pressure 80 mm[Hg] Fatoumata Chase Other [facility] Other 04-26-2023 14:00-0400 SaO2% (BldA) [Mass fraction] 97 % Fatoumata Chase Other [facility] Other 04-26-2023 14:00-0400 Systolic blood pressure 126 mm[Hg] Fatoumata Chase Other [facility] Other 02-25-2023 14:00-0400 Body height 143.51 cm Fatoumata Chase Other [facility] Other 02-25-2023 14:00-0400 Body mass index (BMI) [Ratio] 38.98 kg/m2 Fatoumata Chase Other [facility] Other 02-25-2023 14:00-0400 Body weight 80.29 kg Fatoumata Chase Other [facility] Other 02-25-2023 14:00-0400 Diastolic blood pressure 68 mm[Hg] Fatoumata Chase Other [facility] Other 02-25-2023 14:00-0400 Systolic blood pressure 127 mm[Hg] Fatoumata Chase Other [facility] Other 01-17-2023 14:30-0400 Body height 176.53 cm Brendon Momin Other [facility] Other 01-17-2023 14:30-0400 Body mass index (BMI) [Ratio] 24.45 kg/m2 Brendon Momin Other [facility] Other 01-17-2023 14:30-0400 Body weight 76.2 kg Brendon Momin Other [facility] Other 01-17-2023 14:30-0400 Diastolic blood pressure 58 mm[Hg] Brendon Momin Other [facility] Other 01-17-2023 14:30-0400 Respiratory rate 18 /min Brendon Momin Other [facility] Other 01-17-2023 14:30-0400 SaO2% (BldA) [Mass fraction] 93 % Brendon Momin Other [facility] Other 01-17-2023 14:30-0400 Systolic blood pressure 122 mm[Hg] Brendon Momin Other [facility] Other 01-03-2023 12:15-0400 Body height 176.53 cm Brendon Momin Other [facility] Other 01-03-2023 12:15-0400 Body mass index (BMI) [Ratio] 24.74 kg/m2 Brendon Momin Other [facility] Other 01-03-2023 12:15-0400 Body weight 77.11 kg Brendon Momin Other [facility] Other 01-03-2023 12:15-0400 Diastolic blood pressure 58 mm[Hg] Brendon Momin Other [facility] Other 01-03-2023 12:15-0400 SaO2% (BldA) [Mass fraction] 99 % Brendon Momin Other [facility] Other 01-03-2023 12:15-0400 Systolic blood pressure 104 mm[Hg] Brendon Momin Other [facility] Other 12-20-2022 12:15-0400 Body height 176.53 cm Brendon Momin Other [facility] Other 12-20-2022 12:15-0400 Body mass index (BMI) [Ratio] 25.76 kg/m2 Brendon Momin Other [facility] Other 12-20-2022 12:15-0400 Body weight 80.29 kg Brendon Momin Other [facility] Other 12-20-2022 12:15-0400 Diastolic blood pressure 60 mm[Hg] Brendon Momin Other [facility] Other 12-20-2022 12:15-0400 SaO2% (BldA) [Mass fraction] 96 % Brendon Momin Other [facility] Other 12-20-2022 12:15-0400 Systolic blood pressure 120 mm[Hg] Brendon Momin Other [facility] Other 12-18-2022 15:30-0400 Body height 176.53 cm Staci Asencio Other [facility] Other 12-18-2022 15:30-0400 Body mass index (BMI) [Ratio] 25.32 kg/m2 Staci Elif Other [facility] Other 12-18-2022 15:30-0400 Body temperature 96.7 [degF] Staci Elif Other [facility] Other 12-18-2022 15:30-0400 Body weight 78.93 kg Staci Elif Other [facility] Other 12-18-2022 15:30-0400 Diastolic blood pressure 60 mm[Hg] Staci Elif Other [facility] Other 12-18-2022 15:30-0400 Respiratory rate 20 /min Staci Elif Other [facility] Other 12-18-2022 15:30-0400 SaO2% (BldA) [Mass fraction] 97 % Staci Elif Other [facility] Other 12-18-2022 15:30-0400 Systolic blood pressure 124 mm[Hg] Staci Elif Other [facility] Other 12-06-2022 16:00-0400 Body height 176.53 cm Brendon Momin Other [facility] Other 12-06-2022 16:00-0400 Body mass index (BMI) [Ratio] 25.32 kg/m2 Brendon Momin Other [facility] Other 12-06-2022 16:00-0400 Body weight 78.93 kg Brendon Momin Other [facility] Other 03-23-2023 16:00-0400 Diastolic blood pressure 60 mm[Hg] Brendon Momin Other [facility] Other 12-06-2022 16:00-0400 Systolic blood pressure 112 mm[Hg] Brendon Momin Other [facility] Other 10-01-2022 15:45-0500 Body height 176.53 cm Brendon Momin Other [facility] Other 10-01-2022 15:45-0500 Body mass index (BMI) [Ratio] 25.32 kg/m2 Brendon Momin Other [facility] Other 10-01-2022 15:45-0500 Body temperature 98.1 [degF] Brendon Momin Other [facility] Other 10-01-2022 15:45-0500 Body weight 78.93 kg Brendon Momin Other [facility] Other 10-01-2022 15:45-0500 Diastolic blood pressure 58 mm[Hg] Brendon Momin Other [facility] Other 10-01-2022 15:45-0500 Respiratory rate 18 /min Brendon Momin Other [facility] Other 10-01-2022 15:45-0500 SaO2% (BldA) [Mass fraction] 98 % Brendon Momin Other [facility] Other 10-01-2022 15:45-0500 Systolic blood pressure 114 mm[Hg] Brendon Momin Other [facility] Other 09-06-2022 14:00-0500 Body height 176.53 cm Brendon Momin Other [facility] Other 09-06-2022 14:00-0500 Body mass index (BMI) [Ratio] 25.09 kg/m2 Brendon Momin Other [facility] Other 09-06-2022 14:00-0500 Body temperature 97.3 [degF] Brendon Momin Other [facility] Other 09-06-2022 14:00-0500 Body weight 78.2 kg Brendon Momin Other [facility] Other 09-06-2022 14:00-0500 Diastolic blood pressure 58 mm[Hg] Brendon Momin Other [facility] Other 09-06-2022 14:00-0500 SaO2% (BldA) [Mass fraction] 93 % Brendon Momin Other [facility] Other 09-06-2022 14:00-0500 Systolic blood pressure 118 mm[Hg] Brendon Momin Other [facility] Other 08-30-2022 12:00-0500 Body height 176.53 cm Staci Elif Other [facility] Other 08-30-2022 12:00-0500 Body mass index (BMI) [Ratio] 25.47 kg/m2 Staci Elif Other [facility] Other 08-30-2022 12:00-0500 Body temperature 96.7 [degF] Staci Elif Other [facility] Other 08-30-2022 12:00-0500 Body weight 79.38 kg Staci Elif Other [facility] Other 08-30-2022 12:00-0500 Diastolic blood pressure 57 mm[Hg] Staci Elif Other [employer] Other 08-30-2022 12:00-0500 Respiratory rate 20 /min Staci Elif Other [facility] Other 08-30-2022 12:00-0500 SaO2% (BldA) [Mass fraction] 99 % Staci Elif Other [facility] Other 08-30-2022 12:00-0500 Systolic blood pressure 105 mm[Hg] Staci Elif Other [facility] Other 07-19-2022 16:30-0400 Body height 176.53 cm Brendon Momin Other [facility] Other 07-19-2022 16:30-0400 Body mass index (BMI) [Ratio] 25.47 kg/m2 Brendon Momin Other [facility] Other 07-19-2022 16:30-0400 Body temperature 97.8 [degF] Brendon Momin Other [employer] Other 07-19-2022 16:30-0400 Body weight 79.38 kg Brendon Momin Other [facility] Other 07-19-2022 16:30-0400 Diastolic blood pressure 58 mm[Hg] Brendon Momin Other [employer] Other 07-19-2022 16:30-0400 Respiratory rate 20 /min Brendon Momin Other [facility] Other 07-19-2022 16:30-0400 SaO2% (BldA) [Mass fraction] 97 % Brendon Momin Other [facility] Other 07-19-2022 16:30-0400 Systolic blood pressure 122 mm[Hg] Brendon Momin Other [employer] Other 07-18-2022 10:15-0400 Body height 176.53 cm Staci Elif Other [facility] Other 07-18-2022 10:15-0400 Body mass index (BMI) [Ratio] 25.18 kg/m2 Staci Elif Other [employer] Other 07-18-2022 10:15-0400 Body temperature 97.7 [degF] Staci Elif Other [facility] Other 07-18-2022 10:15-0400 Body weight 78.47 kg Staci Elif Other [facility] Other 07-18-2022 10:15-0400 Diastolic blood pressure 68 mm[Hg] Staci Elif Other [facility] Other 07-18-2022 10:15-0400 Respiratory rate 20 /min Staci Elif Other [facility] Other 07-18-2022 10:15-0400 SaO2% (BldA) [Mass fraction] 98 % Staci Elif Other [facility] Other 07-18-2022 10:15-0400 Systolic blood pressure 133 mm[Hg] Staci Elif Other [employer] Other 06-07-2022 11:30-0400 Body height 176.53 cm Brendon Momin Other [facility] Other 06-07-2022 11:30-0400 Body mass index (BMI) [Ratio] 25.03 kg/m2 Brendon Momin Other [employer] Other 06-07-2022 11:30-0400 Body weight 78.02 kg Brendon Momin Other [facility] Other 06-07-2022 11:30-0400 Diastolic blood pressure 60 mm[Hg] Brendon Momin Other [employer] Other 06-07-2022 11:30-0400 Systolic blood pressure 122 mm[Hg] Brendon Momin Other [employer] Other 01-08-2022 16:00-0400 Body height 176.53 cm Brendon Momin Other [employer] Other 01-08-2022 16:00-0400 Body mass index (BMI) [Ratio] 24.16 kg/m2 Brendon Momin Other [facility] Other 01-08-2022 16:00-0400 Body weight 75.3 kg Brendon Moimn Other [employer] Other 01-08-2022 16:00-0400 Diastolic blood pressure 62 mm[Hg] Brendon Momin Other [employer] Other 01-08-2022 16:00-0400 Respiratory rate 18 /min Brendon Momin Other [employer] Other 01-08-2022 16:00-0400 SaO2% (BldA) [Mass fraction] 99 % Brendon Momin Other [employer] Other 01-08-2022 16:00-0400 Systolic blood pressure 120 mm[Hg] Brendon Momin Other [employer] Other 11-30-2021 14:30-0400 Body height 176.53 cm Brendon Momin Other [employer] Other 11-30-2021 14:30-0400 Body mass index (BMI) [Ratio] 24.16 kg/m2 Brendon Momin Other [employer] Other 11-30-2021 14:30-0400 Body weight 75.3 kg Brendon Momin Other [facility] Other 11-30-2021 14:30-0400 Diastolic blood pressure 72 mm[Hg] Brendon Momin Other [employer] Other 11-30-2021 14:30-0400 Systolic blood pressure 128 mm[Hg] Brendon Momin Other [employer] Other 08-28-2021 14:15-0500 Body height 176.53 cm Brendon Momin Other [facility] Other 08-28-2021 14:15-0500 Body mass index (BMI) [Ratio] 24.74 kg/m2 Brendon Momin Other [employer] Other 08-28-2021 14:15-0500 Body weight 77.11 kg Brendon Momin Other [facility] Other 08-28-2021 14:15-0500 Diastolic blood pressure 70 mm[Hg] Brendon Momin Other [employer] Other 08-28-2021 14:15-0500 Systolic blood pressure 124 mm[Hg] Brendon Momin Other [employer] Other 08-03-2021 15:00-0500 Body height 176.53 cm Brendon Momin Other [employer] Other 08-03-2021 15:00-0500 Body mass index (BMI) [Ratio] 24.74 kg/m2 Brendon Momin Other [employer] Other 08-03-2021 15:00-0500 Body weight 77.11 kg Brendon Momin Other [facility] Other 08-03-2021 15:00-0500 Diastolic blood pressure 60 mm[Hg] Brendon Momin Other [employer] Other 08-03-2021 15:00-0500 Respiratory rate 18 /min Brendon Momin Other [facility] Other 08-03-2021 15:00-0500 SaO2% (BldA) [Mass fraction] 98 % Brendon Momin Other [employer] Other 08-03-2021 15:00-0500 Systolic blood pressure 132 mm[Hg] Brendon Momin Other [employer] Other 08-01-2021 14:15-0500 Body height 176.53 cm Bobby Ramesh Other [employer] Other 08-01-2021 14:15-0500 Body mass index (BMI) [Ratio] 24.74 kg/m2 Bobby Ramesh Other [employer] Other 08-01-2021 14:15-0500 Body temperature 98 [degF] Bobby Ramesh Other [employer] Other 08-01-2021 14:15-0500 Body weight 77.11 kg Bobby Ramesh Other [facility] Other 08-01-2021 14:15-0500 Diastolic blood pressure 62 mm[Hg] Bobby Ramesh Other [employer] Other 08-01-2021 14:15-0500 SaO2% (BldA) [Mass fraction] 97 % Bobby Ramesh Other [facility] Other 08-01-2021 14:15-0500 Systolic blood pressure 146 mm[Hg] Bobby Ramesh Other [facility] Other 07-07-2021 15:30-0400 Body height 176.53 cm Palma Yimond Other [employer] Other 07-07-2021 15:30-0400 Body mass index (BMI) [Ratio] 24.74 kg/m2 Palma Liz Other [employer] Other 07-07-2021 15:30-0400 Body temperature 101.4 [degF] Palma Yimond Other [employer] Other 07-07-2021 15:30-0400 Body weight 77.11 kg Palma Liz Other [facility] Other 07-07-2021 15:30-0400 Respiratory rate 18 /min Palma Liz Other [facility] Other 07-07-2021 15:30-0400 SaO2% (BldA) [Mass fraction] 94 % Palma Liz Other [employer] Other 05-25-2021 15:30-0400 Body height 176.53 cm Brendon Momin Other [facility] Other 05-25-2021 15:30-0400 Body mass index (BMI) [Ratio] 24.89 kg/m2 Brendon Momin Other [facility] Other 05-25-2021 15:30-0400 Body weight 77.57 kg Brendon Momin Other [facility] Other 05-25-2021 15:30-0400 Diastolic blood pressure 80 mm[Hg] Brendon Momin Other [facility] Other 05-25-2021 15:30-0400 Respiratory rate 16 /min Brendon oMmin Other [employer] Other 05-25-2021 15:30-0400 SaO2% (BldA) [Mass fraction] 98 % Brendon Momin Other [facility] Other 05-25-2021 15:30-0400 Systolic blood pressure 124 mm[Hg] Brendon Momin Other [facility] Other Encounters Encounter Date Encounter Type Care Provider Facility Start: 08-01-2023 End: 08-01-2023 ambulatory Fatoumata Chase Other [facility] Other Start: 08-01-2023 Office outpatient vi sit 15 minutes Fatoumata Chase [facility] Start: 07-25-2023 End: 07-25-2023 ambulatory Morena Vera Other [employer] Other Start: 07-25-2023 Telephone encounter Morena Freire her [facility] Start: 07-24-2023 End: 07-24-2023 ambulatory Morena Vera Other [facility] Other Start: 07-24-2023 Office outpatient vi sit 15 minutes Morena Vera [facility] Start: 07-16-2023 End: 07-16-2023 ambulatory Fatoumata Salvatore Other [facility] Other Start: 07-16-2023 Office outpatient vi sit 25 minutes Fatoumata Chase [facility] Start: 05-24-2023 End: 05-24-2023 ambulatory Brendon Momin Facility:[facility] Start: 05-22-2023 End: 05-22-2023 ambulatory Fatoumata Chase Other [employer] Other Start: 05-22-2023 Telephone encounter Fatoumata Chase [facility] Start: 05-21-2023 End: 05-21-2023 ambulatory Fatoumata Chase Other [facility] Other Start: 05-21-2023 Telephone encounter Fatoumata Salvatore [facility] Start: 05-08-2023 End: 05-08-2023 ambulatory Fatoumata Chase Other [facility] Other Start: 05-08-2023 Telephone encounter Fatoumata Salvatore [facility] Start: 04-26-2023 End: 04-26-2023 ambulatory Fatoumata Chase Other [facility] Other Start: 04-26-2023 Transitional care manage srvc 14 day discharge Fatoumata Chase [facility] Start: 04-22-2023 End: 04-22-2023 ambulatory Fatoumata Chase Other [facility] Other Start: 04-22-2023 Telephone encounter Fatoumata Chase [facility] Start: 04-17-2023 End: 04-17-2023 ambulatory Fatoumata Chase Other [facility] Other Start: 04-17-2023 Telephone encounter Fatoumata Chase [facility] Start: 04-15-2023 End: 04-15-2023 ambulatory Fatoumata Chase Other [facility] Other Start: 04-15-2023 Telephone encounter Fatoumata Chase [facility] Start: 04-03-2023 Telephone encounter Fatoumata Chase [facility] Start: 04-03-2023 End: 04-03-2023 ambulatory MD Brendon Momin Work Phone: [facility] Work Phone: Start: 04-03-2023 End: 04-03-2023 Patient encounter procedure MD Brendon Momin Work Phone: [facility]-Res[facility] Therapy Work Phone: Start: 03-26-2023 End: 03-26-2023 ambulatory Fatoumata Salvatore Other [employer] Other Start: 03-26-2023 Telephone encounter Fatoumata Chase [facility] Start: 03-25-2023 End: 03-25-2023 ambulatory Fatoumata Chase Other [facility] Other Start: 03-25-2023 Telephone encounter Fatoumata Chase [facility] Start: 03-18-2023 End: 03-18-2023 ambulatory Fatoumata Chase Other [facility] Other Start: 03-18-2023 Telephone encounter Fatoumata Chase [facility] Start: 03-13-2023 End: 03-13-2023 ambulatory Brendon Momin Other [facility] Other Start: 03-13-2023 Telephone encounter Brendon park [facility] Start: 03-05-2023 End: 03-05-2023 ambulatory Fatoumata Salvatore Other [employer] Other Start: 03-05-2023 Telephone encounter Fatoumata Chase [facility] Start: 03-02-2023 End: 03-02-2023 ambulatory Fatoumata Chase Other [employer] Other Start: 03-02-2023 Telephone encounter Fatoumata Chase [facility] Start: 02-28-2023 End: 02-28-2023 ambulatory Fatoumata Chase Other [employer] Other Start: 02-28-2023 Telephone encounter Fatoumata Chase [facility] Start: 02-25-2023 End: 02-25-2023 ambulatory Fatoumata Chase Other [employer] Other Start: 02-25-2023 Office outpatient ne w 45 minutes Fatoumata Chase [facility] Start: 01-25-2023 End: 01-28-2023 Evaluation and management of inpatient DR CHON LYNCH Facility: Start: 01-24-2023 End: 01-24-2023 ambulatory Brendon Momin Other [facility] Other Start: 01-24-2023 Telephone encounter Brendon park [facility] Start: 01-21-2023 End: 01-21-2023 ambulatory Brendon Momin Other [facility] Other Start: 01-21-2023 Telephone encounter Brendon park [facility] Start: 01-17-2023 End: 01-17-2023 Patient encounter procedure MD Brendon Momin Work Phone: [facility] Work Phone: Start: 01-17-2023 End: 01-17-2023 ambulatory Brendon Momin [facility] Other Start: 01-17-2023 Office outpatient vi sit 25 minutes Brendon Momin [facility] Start: 01-17-2023 Telephone encounter Brendon park [facility] Start: 01-11-2023 End: 01-11-2023 ambulatory Brendon Momin Other [employer] Other Start: 01-11-2023 Telephone encounter Brendon park [facility] Start: 01-08-2023 End: 01-08-2023 ambulatory Brendon Momin Other [facility] Other Start: 01-08-2023 Telephone encounter Brendon park [facility] Start: 01-03-2023 Office outpatient vi sit 25 minutes Brendon Momin [facility] Start: 01-03-2023 Telephone encounter Brendon park [facility] Start: 01-03-2023 End: 01-03-2023 ambulatory Brendon Momin Facility:[facility] Start: 01-03-2023 End: 01-03-2023 ambulatory MD Brendon Momin Work Phone: [facility] Work Phone: Start: 01-03-2023 End: 01-03-2023 Patient encounter procedure MD Brendon Momin Work Phone: [facility] Work Phone: Start: 01-02-2023 End: 01-02-2023 ambulatory Brendon Momin Other [facility] Other Start: 01-02-2023 Telephone encounter Brendon park [facility] Start: 12-20-2022 End: 12-20-2022 ambulatory Brendon Momin Other [facility] Other Start: 12-20-2022 Office outpatient vi sit 25 minutes Brendon Momin [facility] Start: 12-19-2022 End: 12-19-2022 ambulatory Brendon Momin Other [facility] Other Start: 12-19-2022 Telephone encounter Brendon park [facility] Start: 12-18-2022 End: 12-18-2022 ambulatory Staci Elif Other [employer] Other Start: 12-18-2022 Office outpatient vi sit 25 minutes Staci Elif [facility] Start: 12-18-2022 Telephone encounter Brendon park [facility] Start: 12-14-2022 End: 12-14-2022 ambulatory Brendon Momin Other [facility] Other Start: 12-14-2022 Telephone encounter Brendon park [facility] Start: 12-06-2022 End: 12-06-2022 ambulatory Brendon Momin Other [employer] Other Start: 12-06-2022 Office outpatient vi sit 25 minutes Brendon Momin [facility] Start: 12-06-2022 Telephone encounter Brendon park [facility] Start: 11-29-2022 End: 11-29-2022 ambulatory Brendon Momin Other [employer] Other Start: 11-29-2022 Telephone encounter Brendon park [facility] Start: 11-26-2022 End: 11-26-2022 ambulatory Staci Elif Facility:[facility] Start: 11-26-2022 End: 11-26-2022 ambulatory MD Brendon Momin Work Phone: [facility] Work Phone: Start: 11-26-2022 End: 11-26-2022 Patient encounter procedure MD Brendon Momin Work Phone: [facility] Scan [facility] [place] Work Phone: Start: 11-20-2022 End: 11-20-2022 ambulatory Brendon Momin Other [employer] Other Start: 11-20-2022 Telephone encounter Brendon park [facility] Start: 10-13-2022 End: 10-15-[address] DOCTOR DESAI Facility: Start: 10-01-2022 End: 10-01-2022 ambulatory Brendon Momin Other [employer] Other Start: 10-01-2022 Office outpatient vi sit 25 minutes Brendon Momin [facility] Start: 09-06-2022 End: 09-06-2022 ambulatory Brendon Momin Other [facility] Other Start: 09-06-2022 Office outpatient vi sit 25 minutes Brendon Momin [facility] Start: 09-04-2022 End: 09-04-2022 ambulatory Brendon Momin Other [facility] Other Start: 09-04-2022 Telephone encounter Brendon park [facility] Start: 08-30-2022 End: 08-30-2022 ambulatory Staci Elif Other [facility] Other Start: 08-30-2022 Office outpatient vi sit 25 minutes Staci Elif [facility] Start: 08-28-2022 End: 08-28-2022 ambulatory Brendon Momin Other [facility] Other Start: 08-28-2022 Telephone encounter Brendon aprk [facility] Start: 07-31-2022 End: 07-31-2022 ambulatory Brendon Momin Other [facility] Other Start: 07-31-2022 Telephone encounter Brendon park [facility] Start: 07-19-2022 End: 07-19-2022 ambulatory Brendon Momin Other [facility] Other Start: 07-19-2022 Office outpatient vi sit 25 minutes Brendon Momin [facility] Start: 07-18-2022 End: 07-18-2022 ambulatory Staci Elif Other [facility] Other Start: 07-18-2022 Office outpatient ne w 45 minutes Staci Asencio [facility] Start: 07-18-2022 Telephone encounter Staci Asencio [facility] Start: 06-28-2022 End: 06-28-2022 ambulatory Brendon Momin Other [facility] Other Start: 06-28-2022 Telephone encounter Brendon park [facility] Start: 06-20-2022 End: 06-20-2022 ambulatory Brendon Momin Other [facility] Other Start: 06-20-2022 Telephone encounter Brendon park [facility] Start: 06-18-2022 End: 06-18-2022 ambulatory Brendon Momin Other [facility] Other Start: 06-18-2022 Telephone encounter Brendon park [facility] Start: 06-15-2022 End: 06-15-2022 ambulatory Brendon Momin Facility:[facility] Start: 06-11-2022 End: 06-11-2022 ambulatory Brendon Momin Other [facility] Other Start: 06-11-2022 Telephone encounter Brendon park [facility] Start: 06-08-2022 End: 06-08-2022 ambulatory Brendon Momin Facility:[facility] Start: 06-08-2022 End: 06-08-2022 Patient encounter procedure MD Brendon Momin Work Phone: [facility] [place] Start: 06-08-2022 ambulatory Facility:[id number] Start: 06-07-2022 End: 06-07-2022 ambulatory Brendon Momin Other [employer] Other Start: 06-07-2022 Office outpatient vi sit 25 minutes Brendon Momin [facility] Start: 06-07-2022 Telephone encounter Brendon park [facility] Start: 06-04-2022 End: 06-04-2022 ambulatory Brendon Momin Other [facility] Other Start: 06-04-2022 Telephone encounter Brendon [facility] Start: 05-31-2022 End: 05-31-2022 ambulatory Brendon Momin Other [facility] Other Start: 05-31-2022 Telephone encounter Brendon [facility] Start: 05-26-2022 End: 05-26-2022 Patient encounter procedure MD Brendon Momin Work Phone: [facility] Start: 05-24-2022 End: 05-24-2022 ambulatory Brendon Annelise Other [facility] Other Start: 05-24-2022 Telephone encounter Brendon [facility] Start: 05-17-2022 End: 05-17-2022 Patient encounter procedure MD Brendon Momin Work Phone: [facility] [place] Start: 05-09-2022 End: 05-09-2022 ambulatory Brendon Momin Other [facility] Other Start: 05-09-2022 Telephone encounter Brendon [facility] Start: 05-07-2022 End: 05-07-2022 ambulatory Brendon Momin Other [facility] Other Start: 05-07-2022 Telephone encounter Brendon [facility] Start: 04-30-2022 End: 04-30-2022 ambulatory Brendon Momin Other [facility] Other Start: 04-30-2022 Telephone encounter Brendon [facility] Start: 03-02-2022 End: 03-02-[address] DOCTOR LUKE Facility: Start: 02-14-2022 End: 02-14-2022 ambulatory Brendon Momin Other [facility] Other Start: 02-14-2022 Telephone encounter Brendon Ramsay vivian [facility] Start: 02-13-2022 End: 02-13-2022 ambulatory Brendon Momin Other [facility] Other Start: 02-13-2022 Telephone encounter Brendon Ramsay vivian [facility] Start: 02-13-2022 End: 02-15-2022 Evaluation and management of inpatient DR DOCTOR LUKE Facility: Start: 01-08-2022 End: 01-08-2022 ambulatory Brendon Momin Other [facility] Other Start: 01-08-2022 Office outpatient vi sit 25 minutes Brendon Momin [facility] Start: 12-18-2021 End: 12-18-2021 ambulatory Brendon Momin Other [facility] Other Start: 12-18-2021 Telephone encounter Brendon Ramsay vivian [facility] Start: 11-30-2021 End: 11-30-2021 ambulatory Brendon Momin Other [facility] Other Start: 11-30-2021 Office outpatient vi sit 15 minutes Brendon Hurtadoon [facility] Start: 10-16-2021 End: 10-16-2021 ambulatory Brendon Momin Other [facility] Other Start: 10-16-2021 Telephone encounter Brendon Ramsay vivian [facility] Start: 08-28-2021 End: 08-28-2021 ambulatory Brendon Annelise Other [facility] Other Start: 08-28-2021 Office outpatient vi sit 25 minutes Brendon Momin [facility] Start: 08-03-2021 End: 08-03-2021 ambulatory Brendon Momin Other [facility] Other Start: 08-03-2021 Office outpatient vi sit 15 minutes Brendon Momin [facility] Start: 08-01-2021 End: 08-01-2021 ambulatory Bobby Ramesh Other [facility] Other Start: 08-01-2021 Office outpatient vi sit 15 minutes Bobby Ramesh [facility] Start: 07-10-2021 Telephone encounter Brendon park [facility] Start: 07-07-2021 Office outpatient vi sit 15 minutes [place] [facility] Start: 07-07-2021 Telephone encounter Brendon park [facility] Start: 05-25-2021 End: 05-25-2021 ambulatory Brendon Momin Other [facility] Other Start: 05-25-2021 Office outpatient vi sit 25 minutes Brendon Momin [facility] Procedures Date Procedure Procedure Detail Performing Clinician Start: 01-17-2023 Urine culture MD Brendon Momin Work Phone: Start: 11-26-2022 CT of chest without contrast MD Brendon Momin Work Phone: Start: 06-08-2022 CT of chest without contrast MD Brendon Momin Work Phone: Start: 05-26-2022 Plain chest X-ray MD Power Momin Work Phone: Plan of Treatment Date Care Activity Detail Author Start: 01-03-2023 Bacteria identified in Urine by Culture [facility] Immunizations Immunization Date Immunization Notes Care Provider Molly anderson 07-19-2022 influenza, high dose seasonal, preservative-free Staci Asencio Other [facility] Other 08-29-2021 COVID-19 Vaccine Moderna - Documentation Purposes Only Staci Asencio Other [facility] Other 08-03-2021 influenza, high dose seasonal, preservative-free Brendon Momin Other [facility] Other 11-22-2020 COVID-19 Vaccine Moderna - Documentation Purposes Only Staci Asencio Other [facility] Other 10-24-2020 COVID-19 Vaccine Moderna - Documentation Purposes Only Staci Asencio Other [facility] Other 07-08-2020 influenza, high dose seasonal, preservative-free Brendon Momin Other [facility] Other 05-26-2019 pneumococcal polysaccharide vaccine, 23 valent Brendon Momin Other [facility] Other 10-10-2017 Toradol per 15 mg Brendon fowler Other [facility] Other 08-06-2017 influenza, injectabl e, quadrivalent, contains preservative Brendon Momin Other [facility] Other 01-29-2017 pneumococcal conjuga te vaccine, 13 valent Brendon Momin Other [facility] Other 07-03-2016 influenza, injectabl e, quadrivalent, contains preservative Brendon Momin Other [facility] Other 07-05-2014 influenza, injectabl e, quadrivalent, contains preservative Brendon Momin Other [facility] Other 06-26-2012 influenza, injectabl e, quadrivalent, contains preservative Brendon Momin Other [facility] Other Payers Date Payer Category Payer Self-pay [id number] 1957 Medicare [id number] 2.1 [id number] 1959 Unknown [id number] 2.1 [id number] 1937 Unknown [id number] 2.16. [id number] 1937 Unknown [id number] 2.16.84 [id number] 1937 Unknown [id number] 2.16.84 [id number] 1937 Unknown [id number] 2.16.84 [id number] 1937 Unknown [id number] 2.16.84 [id number] Unknown [id number] Unknown [id number] 2.16.8 [id number] Unknown [id number] 2.16.8 [id number] Unknown [id number] 2.16.8 [id number] Unknown [id number] 2.16.8 [id number] Unknown [id number] 2.16.8 [id number] Unknown [id number] 2.16.8 [id number] Unknown [id number] 2.16.8 [id number] Social History Date Type Detail Facility Unknown if ever smoked [facility] Other Sex Assigned At Sex Assigned At Bir th [facility] Other Start: 07-07-2021 Tobacco smoking status NHIS Never smoked tobacco (finding) [facility] Start: 1935 Sex Assigned At Female F [facility] Medical Equipment Procedure Code Equipment Code Equipment Origin al Text Equipment Identifier Dates Start: 12-13-2016 Clinical Notes 05-25-2021 to 08-01-2023 Note Date & Type Note Facility 08-01-2023 Evaluation note Encounter Date Diagnosis Assessment Notes Jul, Cutaneous candidiasis (ICD-10 - B37.2) hydration and lubrication, dove soap, triple rinse clothing and linens Jul, Type 2 diabetes mellitus with hyperglycemia, without long-term current use of insulin (ICD-10 - E11.65) States was hypoglycemic on Januvia. will stop med and monitor glucose. [facility] Other 11-09-2023 History general Narrative - Reported* Type Description Date Medical History Esophageal reflux Medical History sleep apnea with cpap Medical History LBP Medical History allergic rhinitis Medical History hypoglycemia in the morning Medical History Hypoglycaemia NOS Medical History LUMBAR SPONDYLOSIS/RADICULOPATHY Medical History HTN Medical History ARTHRITIS Medical History HLD Medical History lactose intolerance Medical History Covid 03/2022 while in the s Medical History interstitial lung disease Medical History bronchiectesis Surgical History bladder surgery Surgical History partial hysterectomy Surgical History arthroscopic knee surgery Surgical History mammgram 08/2010 Surgical History dexa 08/2010 Surgical History back Surgery Surgical History Bilateral cataract surgery Surgical History Laser Eye surgery 2013 Surgical History Lumbar decompressive surgery 20 15 Surgical History cholecystectomy 2017 Surgical History Ablation- 2017 Surgical History back injection 10/2020 Hospitalization History hysterectomy Hospitalization History bladder surgery Hospitalization History [facility] [place] [facility] [place] Hospitalization History UTI 2021 Hospitalization [facility] [place] [facility] [place] [facility] Other 11-08-2023 Evaluation note* Encounter Date Diagnosis Assessment Notes Treatment Notes Treatment Clinical Notes Jul, Weakness (ICD-10 - R53.1) Pt was unable to collect a urine sample in the office today. Orders given to take to [facility] to collect a sample. Discussed will call with results as soon as available. Pt, pt daughter and verbalzies understanding and agrees to plan of care. Jul, Chills (ICD-10 - R68.83) Jul, Frequent UTI (ICD-10 - N39.0) [facility] Other 10-31-2023 Evaluation note* Encounter Date Diagnosis Assessment Notes Treatment Notes Treatment Clinical Notes Jun, Type 2 diabetes mellitus with hyperglycemia, without long-term current use of insulin (ICD-10 - E11.65) Glucose in office was 591. Stop metformin. It could cause diarrhea. Pt not amenable to lantus and injections and doesn't think her could help her either. Will check glucose daily. Samples Januvia given. Followup in a few weeks and will call in 10 days w home glucose levels. Jun, Frequent UTI (ICD-10 - N39.0) Keflex could cause diarrhea. Switch to macrobid. Pt is very fearful of UTI as she has been in nursing homes several times, will change. Jun, Back spasm (ICD-10 - M62.830) Pt requests med to take at bedtime only. States back pain is improved from 06/28 OV. [facility] Other 10-31-2023 Evaluation note* Encounter Date Diagnosis Assessment Notes Treatment Notes Treatment Clinical Notes Jun, Cough (ICD-10 - R05.9) Jun, Interstitial lung disease (ICD-10 - J84.9) Your breathing test showed minimal change since 06/15/2022. Will observe respiratory symptoms and order testing if and when needed. Jun, Pneumonitis (ICD-10 - J18.9) Jun, Bronchiectasis 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 (ICD-10 - J47.9) [facility] Other 10-31-2023 History general Narrative - Reported* Type Description Date Medical History Esophageal reflux Medical History sleep apnea with cpap Medical History LBP Medical History allergic rhinitis Medical History hypoglycemia in the morning Medical History Hypoglycaemia NOS Medical History LUMBAR SPONDYLOSIS/RADICULOPATHY Medical History HTN Medical History ARTHRITIS Medical History HLD Medical History lactose intolerance Medical History Covid 03/2022 while in the [place] Medical History interstitial lung disease Medical History bronchiectesis Surgical History bladder surgery Surgical History partial hysterectomy Surgical History arthroscopic knee surgery Surgical History mammgram 08/2010 Surgical History dexa 08/2010 Surgical History back Surgery Surgical History Bilateral cataract surgery Surgical History Laser Eye surgery 2013 Surgical History Lumbar decompressive surgery 20 15 Surgical History cholecystectomy 2017 Surgical History Ablation- 2017 Surgical History back injection 10/2020 Hospitalization History hysterectomy Hospitalization History bladder surgery Hospitalization History [facility] Hospitalization History [facility]-cholecystectomy 201 8 Hospitalization History UTI 2021 Hospitalization [facility] [place] [facility]20[facility] Hospitalization [facility] [place] [facility] Other 09-07-2023 History general Narrative - Reported* Type Description Date Medical History Esophageal reflux Medical History sleep apnea with cpap Medical History LBP Medical History allergic rhinitis Medical History hypoglycemia in the morning Medical History Hypoglycaemia NOS Medical History LUMBAR SPONDYLOSIS/RADICULOPATHY Medical History HTN Medical History ARTHRITIS Medical History HLD Medical History lactose intolerance Medical History Covid 03/2022 while in the s Surgical History bladder surgery Surgical History partial hysterectomy Surgical History arthroscopic knee surgery Surgical History mammgram 08/2010 Surgical History dexa 08/2010 Surgical History back Surgery Surgical History Bilateral cataract surgery Surgical History Laser Eye surgery 2013 Surgical History Lumbar decompressive surgery 20 15 Surgical History cholecystectomy 2017 Surgical History Ablation- 2017 Surgical History back injection 10/2020 Hospitalization History hysterectomy Hospitalization History bladder surgery Hospitalization History [facility] [place] [facility] [place] Hospitalization History UTI 2021 Hospitalization [facility] [place] [facility] Hospitalization [facility] [place] [facility] Other 09-06-2023 History general Narrative - Reported* Type Description Date Medical History Esophageal reflux Medical History sleep apnea with cpap Medical History LBP Medical History allergic rhinitis Medical History hypoglycemia in the morning Medical History Hypoglycaemia NOS Medical History LUMBAR SPONDYLOSIS/RADICULOPATHY Medical History HTN Medical History ARTHRITIS Medical History HLD Medical History lactose intolerance Medical History Covid 03/2022 while in the Surgical History bladder surgery Surgical History partial hysterectomy Surgical History arthroscopic knee surgery Surgical History mammgram 08/2010 Surgical History dexa 08/2010 Surgical History back Surgery Surgical History Bilateral cataract surgery Surgical History Laser Eye surgery 2013 Surgical History Lumbar decompressive surgery 20 15 Surgical History cholecystectomy 2017 Surgical History Ablation- 2017 Surgical History back injection 10/2020 Hospitalization History hysterectomy Hospitalization History bladder surgery Hospitalization History [facility] [place] [facility] [place] Hospitalization History UTI 2021 Hospitalization History [facility] [place] [facility] Hospitalization [facility] [place] [facility] Other 08-21-2023 History general Narrative - Reported* Type Description Date Medical History Esophageal reflux Medical History sleep apnea with cpap Medical History LBP Medical History allergic rhinitis Medical History hypoglycemia in the morning Medical History Hypoglycaemia NOS Medical History LUMBAR SPONDYLOSIS/RADICULOPATHY Medical History HTN Medical History ARTHRITIS Medical History HLD Medical History lactose intolerance Medical History Covid 03/2022 while [place] Surgical History bladder surgery Surgical History partial hysterectomy Surgical History arthroscopic knee surgery Surgical History mammgram 08/2010 Surgical History dexa 08/2010 Surgical History back Surgery Surgical History Bilateral cataract surgery Surgical History Laser Eye surgery 2013 Surgical History Lumbar decompressive surgery 20 15 Surgical History cholecystectomy 2017 Surgical History Ablation- 2017 Surgical History back injection 10/2020 Hospitalization History hysterectomy Hospitalization History bladder surgery Hospitalization History [facility] [place] [facility] [place] Hospitalization History UTI 2021 Hospitalization History [facility] [place] [facility]/20[facility] Hospitalization [facility] [place] [facility] Other 08-11-2023 Evaluation note* Encounter Date Diagnosis Assessment Notes Treatment Notes Treatment Clinical Notes Apr, Indigestion (ICD-10 - K30) Apr, Weakness (ICD-10 - R53.1) PT has HH and PT. She is improving. reviewed medications We discussed and demonstrated gentle ankle motion exericse as well as gentle weight bearing strengthening exercise Apr, Type 2 diabetes mellitus with hyperglycemia, without long-term current use of insulin (ICD-10 - E11.65) Healthy diet and exercise encouraged. Weight loss helps to reduce blood sugars and A1C. Wear supportive shoes, avoid open toed shoes. Check feet daily. [facility] Other 08-11-2023 Evaluation note* Encounter Date Diagnosis Assessment Notes Treatment Notes Treatment Clinical Notes Apr, Indigestion (ICD-10 - K30) This is a chronic problem Pt states it is successfully controlled with zofran. She declines further testing or GI referral. Will continue to monitor. Apr, Weakness (ICD-10 - R53.1) PT has HH and PT. She is improving. reviewed medications We discussed and demonstrated gentle ankle motion exericse as well as gentle weight bearing strengthening exercise Apr, Type 2 diabetes mellitus with hyperglycemia, without long-term current use of insulin (ICD-10 - E11.65) Healthy diet and exercise encouraged. Weight loss helps to reduce blood sugars and A1C. Wear supportive shoes, avoid open toed shoes. Check feet daily. [facility] Other 08-03-2023 History general Narrative - Reported* Type Description Date Medical History Esophageal reflux Medical History sleep apnea with cpap Medical History LBP Medical History allergic rhinitis Medical History hypoglycemia in the morning Medical History Hypoglycaemia NOS Medical History LUMBAR SPONDYLOSIS/RADICULOPATHY Medical History HTN Medical History ARTHRITIS Medical History HLD Medical History lactose intolerance Medical History Covid 03/2022 while in the Surgical History bladder surgery Surgical History partial hysterectomy Surgical History arthroscopic knee surgery Surgical History mammgram 08/2010 Surgical History dexa 08/2010 Surgical History back Surgery Surgical History Bilateral cataract surgery Surgical History Laser Eye surgery 2013 Surgical History Lumbar decompressive surgery 20 15 Surgical History cholecystectomy 2018 Surgical History Ablation- 2017 Surgical History back injection 10/2020 Hospitalization History hysterectomy Hospitalization History bladder surgery Hospitalization History [facility] 201 8 Hospitalization History UTI 2021 Hospitalization History [facility] [place] [facility]20[facility] Hospitalization History [facility] [place] [facility]/2021 [facility] Other 08-01-2023 History general Narrative - Reported* Type Description Date Medical History Esophageal reflux Medical History sleep apnea with cpap Medical History LBP Medical History allergic rhinitis Medical History hypoglycemia in the morning Medical History Hypoglycaemia NOS Medical History LUMBAR SPONDYLOSIS/RADICULOPATHY Medical History HTN Medical History ARTHRITIS Medical History HLD Medical History lactose intolerance Medical History Covid 03/2022 while in the Surgical History bladder surgery Surgical History partial hysterectomy Surgical History arthroscopic knee surgery Surgical History mammgram 08/2010 Surgical History dexa 08/2010 Surgical History back Surgery Surgical History Bilateral cataract surgery Surgical History Laser Eye surgery 2013 Surgical History Lumbar decompressive surgery 20 15 Surgical History cholecystectomy 2018 Surgical History Ablation- 2017 Surgical History back injection 10/2020 Hospitalization History hysterectomy Hospitalization History bladder surgery Hospitalization History [facility] 201 8 Hospitalization History UTI 2021 Hospitalization History [facility] [place] [facility]20[facility] Hospitalization [facility] [place] [facility]20[facility] Other 07-19-2023 Evaluation note* Encounter Date Diagnosis Assessment Notes Treatment Notes Treatment Clinical Notes Mar, Type 2 diabetes mellitus 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, unspecified whether custodial insulin use (ICD-10 - E11.9) [facility] Other 07-03-2023 Evaluation note* Encounter Date Diagnosis Assessment Notes Treatment Notes Treatment Clinical Notes Mar, Type 2 diabetes mellitus 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, unspecified whether custodial insulin use (ICD-10 - E11.9) [facility] Other 07-03-2023 History general Narrative - Reported* Type Description Date Medical History Esophageal reflux Medical History sleep apnea with cpap Medical History LBP Medical History allergic rhinitis Medical History hypoglycemia in the morning Medical History Hypoglycaemia NOS Medical History LUMBAR SPONDYLOSIS/RADICULOPATHY Medical History HTN Medical History ARTHRITIS Medical History HLD Medical History lactose intolerance Medical History Covid 03/2022 while in the Surgical History bladder surgery Surgical History partial hysterectomy Surgical History arthroscopic knee surgery Surgical History mammgram 08/2010 Surgical History dexa 08/2010 Surgical History back Surgery Surgical History Bilateral cataract surgery Surgical History Laser Eye surgery 2013 Surgical History Lumbar decompressive surgery 20 15 Surgical History cholecystectomy 2017 Surgical History Ablation- 2017 Surgical History back injection 10/2020 Hospitalization History hysterectomy Hospitalization History bladder surgery Hospitalization History [facility] Hospitalization History [facility]olecyst[facility] 201 8 Hospitalization History UTI 2021 Hospitalization History [facility] [place] 02[facility]20[facility] Hospitalization History [facility] [place] [facility]/20[facility] Other 06-23-2023 History general Narrative - Reported* Type Description Date Medical History Esophageal reflux Medical History sleep apnea with cpap Medical History LBP Medical History allergic rhinitis Medical History hypoglycemia in the morning Medical History Hypoglycaemia NOS Medical History LUMBAR SPONDYLOSIS/RADICULOPATHY Medical History HTN Medical History ARTHRITIS Medical History HLD Medical History lactose intolerance Medical History Covid 03/2022 while in the Surgical History bladder surgery Surgical History partial hysterectomy Surgical History arthroscopic knee surgery Surgical History mammgram 08/2010 Surgical History dexa 08/2010 Surgical History back Surgery Surgical History Bilateral cataract surgery Surgical History Laser Eye surgery 2013 Surgical History Lumbar decompressive surgery 20 15 Surgical History cholecystectomy 2018 Surgical History AblationAgata [place] 2017 Surgical History back injection 10/2020 Hospitalization History hysterectomy Hospitalization History bladder surgery Hospitalization History [facility] Hospitalization History [facility]olecyst[facility] 201 8 Hospitalization History UTI 2021 Hospitalization History [facility] [place] 02[facility]20[facility] Hospitalization History [facility] [place] 09/2021 [facility] Other 06-20-2023 History general Narrative - Reported* Type Description Date Medical History Esophageal reflux Medical History sleep apnea with cpap Medical History LBP Medical History allergic rhinitis Medical History hypoglycemia in the morning Medical History Hypoglycaemia NOS Medical History LUMBAR SPONDYLOSIS/RADICULOPATHY Medical History HTN Medical History ARTHRITIS Medical History HLD Medical History lactose intolerance Medical History Covid 03/2022 while in the Surgical History bladder surgery Surgical History partial hysterectomy Surgical History arthroscopic knee surgery Surgical History mammgram 08/2010 Surgical History dexa 08/2010 Surgical History back Surgery -2012 Surgical History Bilateral cataract surgery Surgical History Laser Eye surgery 2013 Surgical History Lumbar decompressive surgery 20 15 Surgical History cholecystectomy 2017 Surgical History Ablation- 2017 Surgical History back injection 10/2020 Hospitalization History hysterectomy Hospitalization History bladder surgery Hospitalization History [facility] [place] [facility] [place] Hospitalization History UTI 2021 Hospitalization History [facility] [place] 02[facility]20[facility] Hospitalization History [facility] [place] 09/2021 [facility] Other 06-17-2023 History general Narrative - Reported* Type Description Date Medical History Esophageal reflux Medical History sleep apnea with cpap Medical History LBP Medical History allergic rhinitis Medical History hypoglycemia in the morning Medical History Hypoglycaemia NOS Medical History LUMBAR SPONDYLOSIS/RADICULOPATHY Medical History HTN Medical History ARTHRITIS Medical History HLD Medical History lactose intolerance Medical History Covid 03/2022 while in the Surgical History bladder surgery Surgical History partial hysterectomy Surgical History arthroscopic knee surgery Surgical History mammgram 08/2010 Surgical History dexa 08/2010 Surgical History back Surgery Surgical History Bilateral cataract surgery Surgical History Laser Eye surgery 2013 Surgical History Lumbar decompressive surgery 20 15 Surgical History cholecystectomy 2017 Surgical History Ablation- 2017 Surgical History back injection 10/2020 Hospitalization History hysterectomy Hospitalization History bladder surgery Hospitalization History [facility] Hospitalization [place] [facility] [place] Hospitalization History UTI 2021 Hospitalization History [facility] [place] [facility]20[facility] Hospitalization History [facility] [place] 09/2021 [facility] Other 06-12-2023 Evaluation note* Encounter Date Diagnosis Assessment Notes Treatment Notes Treatment Clinical Notes Feb, Frequent UTI (ICD-10 - N39.0) Discussed prophylactic treatment to prevent UTIs. Consider urology referral in future. Feb, RLS (restless legs syndrome) (ICD-10 - G25.81) requests refill. Feb, Pneumonitis (ICD-10 - J18.9) Obtain chest xray for followup. Scheduled for PFT but doesn't really want to do it. Will reach out to pulm clinic. Feb, Nausea without vomiting (ICD-10 - R11.0) cover with zofran. [facility] Other 05-12-2023 History general Narrative - Reported* Type Description Date Medical History Esophageal reflux Medical History sleep apnea with cpap Medical History LBP Medical History allergic rhinitis Medical History hypoglycemia in the morning Medical History Hypoglycaemia NOS Medical History LUMBAR SPONDYLOSIS/RADICULOPATHY Medical History HTN Medical History ARTHRITIS Medical History HLD Medical History lactose intolerance Medical History Covid 03/2022 while in the Surgical History bladder surgery Surgical History partial hysterectomy Surgical History arthroscopic knee surgery Surgical History mammgram 08/2010 Surgical History dexa 08/2010 Surgical History back Surgery Surgical History Bilateral cataract surgery Surgical History Laser Eye surgery 2013 Surgical History Lumbar decompressive surgery 20 15 Surgical History cholecystectomy 2017 Surgical History Ablation- 2017 Surgical History back injection 10/2020 Hospitalization History hysterectomy Hospitalization History bladder surgery Hospitalization History [facility] [place] [facility] [place] Hospitalization History UTI 2021 Hospitalization History [facility] [place] [facility]/20[facility] Hospitalization History [facility] [place] 09/2021 [facility] Other 05-08-2023 Evaluation note* Encounter Date Diagnosis Assessment Notes Treatment Notes Treatment Clinical Notes January, Type 2 diabetes mellitus 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, unspecified whether custodial insulin use (ICD-10 - E11.9) January, Essential hypertension (ICD-10 - I10) January, Dependent edema (ICD-10 - R60.9) [facility] Other 05-05-2023 History general Narrative - Reported* Type Description Date Medical History Esophageal reflux Medical History sleep apnea with cpap Medical History LBP Medical History allergic rhinitis Medical History hypoglycemia in the morning Medical History Hypoglycaemia NOS Medical History LUMBAR SPONDYLOSIS/RADICULOPATHY Medical History HTN Medical History ARTHRITIS Medical History HLD Medical History lactose intolerance Medical History Covid 03/2022 [place] Surgical History bladder surgery Surgical History partial hysterectomy Surgical History arthroscopic knee surgery Surgical History mammgram 08/2010 Surgical History dexa 08/2010 Surgical History back Surgery Surgical History Bilateral cataract surgery Surgical History Laser Eye surgery 2013 Surgical History Lumbar decompressive surgery 20 15 Surgical History cholecystectomy 2017 Surgical History Ablation- 2017 Surgical History back injection 10/2020 Hospitalization History hysterectomy Hospitalization History bladder surgery Hospitalization History [facility] [place] [facility] [place] Hospitalization History UTI 2021 Hospitalization [facility] [place] [facility] Hospitalization [facility] [place] [facility] Other 05-04-2023 Evaluation note* Encounter Date Diagnosis Assessment Notes Treatment Notes Treatment Clinical Notes January, Essential hypertension (ICD-10 - I10) Patient continues to do well with management of hypertension.Reviewe d importance of nonpharmacologic treatment measures including excercise, diet, weight control. Currently meets AHA criteria for controlled hypertension. Criteria for medication adjustments reviewed. Taking all meds as directed reinforced. January, Diabetes (ICD-10 - E11.9) RX refilled A1C remains stable at this time, 6.5 on 12/06/22. Patient advised goal is to maintain 6.5 -7.5. Patient advised to maintain a healthy weight and continue to manage diet in order to avoid hypoglycemic episodes. Patient tolerating current medications well. We will continue to monitor every 3 months. January, Gastroesophageal reflux disease, unspecified whether esophagitis present (ICD-10 - K21.9) GERD remains stable. Importance of meal timing and content reviewed. Avoid over eating and late meals. Pay attention to changes in appetite, weight, and bowel functions. January, Nausea (ICD-10 - R11.0) RX refilled January, Interstitial lung disease (ICD-10 - J84.9) symptoms remain unchanged at this time. Pay attention to any changes in shortness of breath. Patient should continue with the above and we will continue to monitor. F/U with Pulmonology 04/23/23 as scheduled January, Suspected urinary tract infection (ICD-10 - R39.89) [facility] Other 04-26-2023 History general Narrative - Reported* Type Description Date Medical History Esophageal reflux Medical History sleep apnea with cpap Medical History LBP Medical History allergic rhinitis Medical History hypoglycemia in the morning Medical History Hypoglycaemia NOS Medical History LUMBAR SPONDYLOSIS/RADICULOPATHY Medical History HTN Medical History ARTHRITIS Medical History HLD Medical History lactose intolerance Medical History Covid 03/2022 while in the Surgical History bladder surgery Surgical History partial hysterectomy Surgical History arthroscopic knee surgery Surgical History mammgram 08/2010 Surgical History dexa 08/2010 Surgical History back Surgery Surgical History Bilateral cataract surgery Surgical History Laser Eye surgery 2013 Surgical History Lumbar decompressive surgery 20 15 Surgical History cholecystectomy 2018 Surgical History Ablation- 2017 Surgical History back injection 10/2020 Hospitalization History hysterectomy Hospitalization History bladder surgery Hospitalization History [facility] [place] [place] [facility] [place] Hospitalization History UTI 2021 Hospitalization History [facility] [place] [facility] Hospitalization History [facility] [place] [facility] Other 04-25-2023 History general Narrative - Reported* Type Description Date Medical History Esophageal reflux Medical History sleep apnea with cpap Medical History LBP Medical History allergic rhinitis Medical History hypoglycemia in the morning Medical History Hypoglycaemia NOS Medical History LUMBAR SPONDYLOSIS/RADICULOPATHY Medical History HTN Medical History ARTHRITIS Medical History HLD Medical History lactose intolerance Medical History Covid 03/2022 while in the Surgical History bladder surgery Surgical History partial hysterectomy Surgical History arthroscopic knee surgery Surgical History mammgram 08/2010 Surgical History dexa 08/2010 Surgical History back Surgery Surgical History Bilateral cataract surgery Surgical History Laser Eye surgery 2013 Surgical History Lumbar decompressive surgery 20 15 Surgical History cholecystectomy 2018 Surgical History Ablation- 2017 Surgical History back injection 10/2020 Hospitalization History hysterectomy Hospitalization History bladder surgery Hospitalization History [place] [place] [facility] [place] 8 Hospitalization History UTI 2021 Hospitalization History [facility] [place] 02/20[facility] Hospitalization History [facility] [place] [facility] Other 04-20-2023 Evaluation note* Encounter Date Diagnosis Assessment Notes Treatment Notes Treatment Clinical Notes Dec, Suspected urinary tract infection (ICD-10 - R39.89) She is advised to push the fluids, her urine doesnt worry me, she doesnt have a significant infection. I would like to treat the trush. Dec, Leg edema (ICD-10 - R60.0) She is to elevate her legs throughout the day. She will be attending Dr. Whyte for stockings and shoes. Dec, Thrush (ICD-10 - B37.0) I would like to order Magic Mouthwash, she is to swish and swollow four times a day. Magic Mouthwash was called into [facility]. Dec, GERD (gastroesophageal reflux disease) (ICD-10 - K21.9) Dec, Type 2 diabetes mellitus 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, unspecified whether terminal system operator insulin use (ICD-10 - E11.9) Type 2 DM remains reasonably well controlled. Sugar logs reviewed. Medications verified. No patterns of poor control. We reviewed the importance of medication compliance, meal timing as well as content and the need for a bedtime snack. We talked about current medication specifically. We reviewed comorbidities associated with type 2 DM including HTN, CAD, dyslipidemia. Dec, Essential hypertension (ICD-10 - I10) Patient continues to do well with management of hypertension.Reviewed importance of nonpharmacologic treatment measures including excercise, diet, weight control. Currently meets AHA criteria for controlled hypertension. Criteria for medication adjustments reviewed. Taking all meds as directed reinforced. [facility] Other 04-20-2023 History general Narrative - Reported* Type Description Date Medical History Esophageal reflux Medical History sleep apnea with cpap Medical History LBP Medical History allergic rhinitis Medical History hypoglycemia in the morning Medical History Hypoglycaemia NOS Medical History LUMBAR SPONDYLOSIS/RADICULOPATHY Medical History HTN Medical History ARTHRITIS Medical History HLD Medical History lactose intolerance Medical History Cov[place] 03/2022 [place] Surgical History bladder surgery Surgical History partial hysterectomy Surgical History arthroscopic knee surgery Surgical History mammgram 08/2010 Surgical History dexa 08/2010 Surgical History back Surgery -2012 Surgical History Bilateral cataract surgery Surgical History Laser Eye surgery 2013 Surgical History Lumbar decompressive surgery 20 15 Surgical History cholecystectomy 2017 Surgical History Ablation- 2017 Surgical History back injection 10/2020 Hospitalization History hysterectomy Hospitalization History bladder surgery Hospitalization History [place] [facility] [place] Hospitalization History UTI 2021 Hospitalization History [facility] [place] 02[facility] Hospitalization History [facility] [place] [facility] Other 04-14-2023 History general Narrative - Reported* Type Description Date Medical History Esophageal reflux Medical History sleep apnea with cpap Medical History LBP Medical History allergic rhinitis Medical History hypoglycemia in the morning Medical History Hypoglycaemia NOS Medical History LUMBAR SPONDYLOSIS/RADICULOPATHY Medical History HTN Medical History ARTHRITIS Medical History HLD Medical History lactose intolerance Medical History Cov[place] 03/2022 [place] Surgical History bladder surgery Surgical History partial hysterectomy Surgical History arthroscopic knee surgery Surgical History mammgram 08/2010 Surgical History dexa 08/2010 Surgical History back Surgery Surgical History Bilateral cataract surgery Surgical History Laser Eye surgery 2013 Surgical History Lumbar decompressive surgery 20 15 Surgical History cholecystectomy 2017 Surgical History Ablation- 2017 Surgical History back injection 10/2020 Hospitalization History hysterectomy Hospitalization History bladder surgery Hospitalization History [place] [facility] [place] 8 Hospitalization History UTI 2021 Hospitalization History [facility] [place] 02/20[facility] Hospitalization History [facility] [place] [facility] Other 04-06-2023 Evaluation note* Encounter Date Diagnosis Assessment Notes Treatment Notes Treatment Clinical Notes Dec, Dependent edema (ICD-10 - R60.9) I would like to increase her Lasix to 1.5 tablets a day in the morning, 60 mg daily, negative for pre sacral edema, Her recent Creatinine and BUN were stable, I would like her to continue to weigh herself at home. I would like to see her back in 2 weeks, and we will complete lab work at that time. She has Third spacing or dependent edema, no signs of CHF. Dec, Essential hypertension (ICD-10 - I10) Continue losartan 25 mg p.o. daily. Patient continues to do well with management of hypertension.Reviewed importance of nonpharmacologic treatment measures including excercise, diet, weight control. Currently meets AHA criteria for controlled hypertension. Criteria for medication adjustments reviewed. Taking all meds as directed reinforced. Dec, Type 2 diabetes mellitus 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, unspecified whether custodial insulin use (ICD-10 - E11.9) Type 2 DM remains reasonably well controlled. Sugar logs reviewed. Medications verified. No patterns of poor control. We reviewed the importance of medication compliance, meal timing as well as content and the need for a bedtime snack. We talked about current medication specifically. We reviewed comorbidities associated with type 2 DM including HTN, CAD, dyslipidemia. Dec, RLS (restless legs syndrome) (ICD-10 - G25.81) Continues to have nocturnal restless leg syndrome. Symptoms vary from day-to-day. For the most part, does well with her Mirapex which we will continue in its present dose. Dec, Interstitial lung disease (ICD-10 - J84.9) History of interstitial lung disease. Followed consistently by pulmonology. Recent pulmonology visit showed stability. [facility] Other 04-05-2023 History general Narrative - Reported* Type Description Date Medical History Esophageal reflux Medical History sleep apnea with cpap Medical History LBP Medical History allergic rhinitis Medical History hypoglycemia in the morning Medical History Hypoglycaemia NOS Medical History LUMBAR SPONDYLOSIS/RADICULOPATHY Medical History HTN Medical History ARTHRITIS Medical History HLD Medical History lactose intolerance Medical History Cov[place] 03/2022 [place] Surgical History bladder surgery Surgical History partial hysterectomy Surgical History arthroscopic knee surgery Surgical History mammgram 08/2010 Surgical History dexa 08/2010 Surgical History back Surgery Surgical History Bilateral cataract surgery Surgical History Laser Eye surgery 2013 Surgical History Lumbar decompressive surgery 20 15 Surgical History cholecystectomy 2017 Surgical History Ablation- 2017 Surgical History back injection 10/2020 Hospitalization History hysterectomy Hospitalization History bladder surgery Hospitalization History [place] [facility] [place] 8 Hospitalization History UTI 2021 Hospitalization History [facility] [place] 02/20[facility] Hospitalization History [facility] [place] [facility] Other 04-04-2023 Evaluation note* Encounter Date Diagnosis Assessment Notes Treatment Notes Treatment Clinical Notes Dec, Cough (ICD-10 - R05.9) Dec, Interstitial lung disease (ICD-10 - J84.9) Call office if increased cough occurs or shortness of breath. Dec, Pneumonitis (ICD-10 - J18.9) Dec, Bronchiectasis 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 (ICD-10 - J47.9) Dec, Other Notifiy family doctor about increased LE edema, unable to wear shoes. [facility] Other 03-31-2023 History general Narrative - Reported* Type Description Date Medical History Esophageal reflux Medical History sleep apnea with cpap Medical History LBP Medical History allergic rhinitis Medical History hypoglycemia in the morning Medical History Hypoglycaemia NOS Medical History LUMBAR SPONDYLOSIS/RADICULOPATHY Medical History HTN Medical History ARTHRITIS Medical History HLD Medical History lactose intolerance Medical History Covid 03/2022 while in the Surgical History bladder surgery Surgical History partial hysterectomy Surgical History arthroscopic knee surgery Surgical History mammgram 08/2010 Surgical History dexa 08/2010 Surgical History back Surgery Surgical History Bilateral cataract surgery Surgical History Laser Eye surgery 2013 Surgical History Lumbar decompressive surgery 20 15 Surgical History cholecystectomy 2017 Surgical History Ablation- 2017 Surgical History back injection 10/2020 Hospitalization History hysterectomy Hospitalization History bladder surgery Hospitalization History [place] [facility] [place] [place] 8 Hospitalization History UTI 2021 Hospitalization History [facility] [place] 02/2022 Hospitalization History [facility] [place] 09/[facility]21 [facility] Other 03-24-2023 History general Narrative - Reported* Type Description Date Medical History Esophageal reflux Medical History sleep apnea with cpap Medical History LBP Medical History allergic rhinitis Medical History hypoglycemia in the morning Medical History Hypoglycaemia NOS Medical History LUMBAR SPONDYLOSIS/RADICULOPATHY Medical History HTN Medical History ARTHRITIS Medical History HLD Medical History lactose intolerance Medical History Covid 03/2022 while in the Surgical History bladder surgery Surgical History partial hysterectomy Surgical History arthroscopic knee surgery Surgical History mammgram 08/2010 Surgical History dexa 08/2010 Surgical History back Surgery Surgical History Bilateral cataract surgery Surgical History Laser Eye surgery 2013 Surgical History Lumbar decompressive surgery 20 15 Surgical History cholecystectomy 2017 Surgical History Ablation- 2017 Surgical History back injection 10/2020 Hospitalization History hysterectomy Hospitalization History bladder surgery Hospitalization History [place] [facility] [place] [place] 8 Hospitalization History UTI 2021 Hospitalization History [facility] [place] 02[facility]20[facility] Hospitalization History [facility] [place] 09/2021 [facility] Other 03-23-2023 Evaluation note* Encounter Date Diagnosis Assessment Notes Treatment Notes Treatment Clinical Notes Nov, Essential hypertension (ICD-10 - I10) Patient continues to do well with management of hypertension.Reviewe d importance of nonpharmacologic treatment measures including excercise, diet, weight control. Currently meets AHA criteria for controlled hypertension. Criteria for medication adjustments reviewed. Taking all meds as directed reinforced. Nov, Gastroesophageal reflux disease, unspecified whether esophagitis present (ICD-10 - K21.9) GERD remains stable. Importance of meal timing and content reviewed. Avoid over eating and late meals. Pay attention to changes in appetite, weight, and bowel functions. Nov, Type 2 diabetes mellitus 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, unspecified whether terminal system operator insulin use (ICD-10 - E11.9) Type 2 DM remains reasonably well controlled. Sugar logs reviewed. Medications verified. No patterns of poor control. We reviewed the importance of medication compliance, meal timing as well as content and the need for a bedtime snack. We talked about current medication specifically. We reviewed comorbidities associated with type 2 DM including HTN, CAD, dyslipidemia. Nov, RLS (restless legs syndrome) (ICD-10 - G25.81) stable, no intervention at this time Nov, Anxiety (ICD-10 - F41.9) Patient encouraged to manage symptoms by setting goals & maintaining a routine. Exercise regularly, healthy eating habits and getting plenty of rest. We will continue to monitor without medication at this time. Nov, Hospital discharge follow-up (ICD-10 - Z09) Medical records requested Nov, Interstitial lung disease (ICD-10 - J84.9) Pt did have a Chest CT November 26 2022 ordered by Staci Asencio, no evidence of Pneumonia. Nov, Frequent urinary tract infections (ICD-10 - N39.0) Pt educated on risk VS benefit of taking an ATB chronically, will consider. Nov, Nausea (ICD-10 - R11.0) Rx refilled [facility] Other 03-20-2023 History general Narrative - Reported* Type Description Date Medical History Esophageal reflux Medical History sleep apnea with cpap Medical History LBP Medical History allergic rhinitis Medical History hypoglycemia in the morning Medical History Hypoglycaemia NOS Medical History LUMBAR SPONDYLOSIS/RADICULOPATHY Medical History HTN Medical History ARTHRITIS Medical History HLD Medical History lactose intolerance Medical History Cov[place] 03/2022 [place] Surgical History bladder surgery Surgical History partial hysterectomy Surgical History arthroscopic knee surgery Surgical History mammgram 08/2010 Surgical History dexa 08/2010 Surgical History back Surgery -2012 Surgical History Bilateral cataract surgery Surgical History Laser Eye surgery 2013 Surgical History Lumbar decompressive surgery 15 Surgical History cholecystectomy 2017 Surgical History Ablation- 2017 Surgical History back injection 10/2020 Hospitalization History hysterectomy Hospitalization History bladder surgery Hospitalization History [facility]ization [facility] 201 8 Hospitalization History UTI 2021 Hospitalization History [facility] [place] 02/2022 [facility] Other 03-06-2023 History general Narrative - Reported* Type Description Date Medical History Esophageal reflux Medical History sleep apnea with cpap Medical History LBP Medical History allergic rhinitis Medical History hypoglycemia in the morning Medical History Hypoglycaemia NOS Medical History LUMBAR SPONDYLOSIS/RADICULOPATHY Medical History HTN Medical History ARTHRITIS Medical History HLD Medical History lactose intolerance Medical History Covid 03/2022 while in the Surgical History bladder surgery Surgical History partial hysterectomy Surgical History arthroscopic knee surgery Surgical History mammgram 08/2010 Surgical History dexa 08/2010 Surgical History back Surgery Surgical History Bilateral cataract surgery Surgical History Laser Eye surgery 2013 Surgical History Lumbar decompressive surgery 20 15 Surgical History cholecystectomy 2017 Surgical History Ablation- 2017 Surgical History back injection 10/2020 Hospitalization History hysterectomy Hospitalization History bladder surgery Hospitalization History [facility] [place] [place] [facility] [place] 8 Hospitalization History UTI 2021 Hospitalization History [facility] [place] 02/2022 [facility] Other 01-16-2023 Evaluation note* Encounter Date Diagnosis Assessment Notes Treatment Notes Treatment Clinical Notes Sep, Diabetes (ICD-10 - E11.9) Patients A1C is well controlled at this time. Educated patient on the importance of meal content and meal timing. Patient is to have a snack at bedtime to avoid Hypoglycemic episodes. Increase daily exercise routine and watch diet. Continue with above medication and we will continue to monitor every 3 months. Sep, GERD (gastroesophageal reflux disease) (ICD-10 - K21.9) Patients reflux symptoms remain unchanged at this time. We Discussed the importance of meal content and timing. Reviewed the importance to avoid overeating and eating late in evening. Sep, RLS (restless legs syndrome) (ICD-10 - G25.81) Stable with medications Sep, Anxiety (ICD-10 - F41.9) Stable at this time. Sep, Interstitial lung disease (ICD-10 - J84.9) Patient is followed by Staci Asencio. Sep, HTN (hypertension) (ICD-10 - I10) Patients blood pressure is well controlled at this time. Denies cardiac symptoms at todays visit. We will continue to monitor. Continue above medications. [facility] Other 12-22-2022 Evaluation note* Encounter Date Diagnosis Assessment Notes Treatment Notes Treatment Clinical Notes Aug, Tremor (ICD-10 - R25.1) I do not believe that the tremor is related to Parkinson's. I believe that this is related to post infection. She recently saw Pulmonology and wasnt related to recent steroids. We will check her urine for evaluation. Aug, Essential hypertension (ICD-10 - I10) Patient continues to do well with management of hypertension.Reviewe d importance of nonpharmacologic treatment measures including excercise, diet, weight control. Currently meets AHA criteria for controlled hypertension. Criteria for medication adjustments reviewed. Taking all meds as directed reinforced. Aug, Gastroesophageal reflux disease, unspecified whether esophagitis present (ICD-10 - K21.9) GERD remains stable. Importance of meal timing and content reviewed. Avoid over eating and late meals. Pay attention to changes in appetite, weight, and bowel functions. Aug, Lumbar degenerative disc disease (ICD-10 - M51.36) Chronic but stable low back pain. Has been seen and evaluated and treated extensively by pain management. At the present time, symptoms are fairly well controlled. Aug, RLS (restless legs syndrome) (ICD-10 - G25.81) Chronic symptoms of mild restless leg syndrome. I do not think this is responsible for any of the hand shaking that she has been experiencing. 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 Aug, Type 2 diabetes mellitus 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, unspecified whether custodial insulin use (ICD-10 - E11.9) Stable. Last A1c 5.4%. Not clinically an issue at the present time. Aug, UTI (lower urinary tract infection) (ICD-10 - N39.0) Clinical symptoms and positive urinalysis for infection. This will be appropriately treated with Cipro 500 twice daily for 5 days. Aug, Bronchiectasis 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 (ICD-10 - J47.9) No diagnosis made and followed by pulmonary medicine. Recently saw Staci Asencio. Her consult notes were reviewed. Aug, Interstitial lung disease (ICD-10 - J84.9) PulmonologyIs entertaining an associated diagnosis of mild interstitial lung disease. They are following this with appropriate scans. [facility] Other 12-15-2022 Evaluation note* Encounter Date Diagnosis Assessment Notes Treatment Notes Treatment Clinical Notes Aug, Cough (ICD-10 - R05.9) Aug, Interstitial lung disease (ICD-10 - J84.9) Aug, Pneumonitis (ICD-10 - J18.9) Aug, Bronchiectasis 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 (ICD-10 - J47.9) [facility] Other 11-15-2022 Evaluation note* Encounter Date Diagnosis Assessment Notes Treatment Notes Treatment Clinical Notes Jul, GERD (gastroesophageal reflux disease) (ICD-10 - K21.9) Jul, RLS (restless legs syndrome) (ICD-10 - G25.81) [facility] Other 11-13-2022 History general Narrative - Reported* Type Description Date Medical History Esophageal reflux Medical History sleep apnea with cpap Medical History LBP Medical History allergic rhinitis Medical History hypoglycemia in the morning Medical History Hypoglycaemia NOS Medical History LUMBAR SPONDYLOSIS/RADICULOPATHY Medical History HTN Medical History ARTHRITIS Medical History HLD Medical History lactose intolerance Medical History Covid 03/2022 while in the Surgical History bladder surgery Surgical History partial hysterectomy Surgical History arthroscopic knee surgery Surgical History mammgram 08/2010 Surgical History dexa 08/2010 Surgical History back Surgery -2012 Surgical History Bilateral cataract surgery Surgical History Laser Eye surgery 2013 Surgical History Lumbar decompressive surgery 20 15 Surgical History cholecystectomy 2017 Surgical History Ablation- 2018 Surgical History back injection 10/2020 Hospitalization History hysterectomy Hospitalization History bladder surgery Hospitalization History [facility] [place] [facility] [place] Hospitalization History UTI 2021 Hospitalization History [facility] [place] 02/2022 [employer] Other 11-04-2022 History general Narrative - Reported* Type Description Date Medical History Esophageal reflux Medical History sleep apnea with cpap Medical History LBP Medical History allergic rhinitis Medical History hypoglycemia in the morning Medical History Hypoglycaemia NOS Medical History LUMBAR SPONDYLOSIS/RADICULOPATHY Medical History HTN Medical History ARTHRITIS Medical History HLD Medical History lactose intolerance Medical History Covid 03/2022 while [place] Surgical History bladder surgery Surgical History partial hysterectomy Surgical History arthroscopic knee surgery Surgical History mammgram 08/2010 Surgical History dexa 08/2010 Surgical History back Surgery Surgical History Bilateral cataract surgery Surgical History Laser Eye surgery 2013 Surgical History Lumbar decompressive surgery 20 15 Surgical History cholecystectomy 2017 Surgical History Ablation- 2017 Surgical History back injection 10/2020 Hospitalization History hysterectomy Hospitalization History bladder surgery Hospitalization History [facility] [place] [facility] [place] Hospitalization History UTI 2021 Hospitalization History [facility] [place] 02/2022 [employer] Other 11-03-2022 Evaluation note* Encounter Date Diagnosis Assessment Notes Treatment Notes Treatment Clinical Notes Jul, HTN (hypertension) (ICD-10 - I10) Patients blood pressure is well controlled at this time. Denies cardiac symptoms at todays visit. We will continue to monitor. Continue above medications. Jul, Diabetes (ICD-10 - E11.9) Patient to continue to watch diet and increase exercise routine. Remain active as tolerated and we will continue to monitor with routine blood work. Patient is to continue with above medication as directed. , Patient to continue to watch diet and increase exercise routine. Remain active as tolerated and we will continue to monitor with routine blood work. Patient is to continue with above medication as directed. Jul, GERD (gastroesophageal reflux disease) (ICD-10 - K21.9) Patients reflux symptoms remain unchanged at this time. We Discussed the importance of meal content and timing. Reviewed the importance to avoid overeating and eating late in evening. Take medication as directed and we will continue to monitor. Jul, Chronic pain (ICD-10 - G89.29) Jul, Interstitial lung disease (ICD-10 - J84.9) She is attending [facility] and has f/u in August. Jul, Anxiety (ICD-10 - F41.9) She is advised that she is going through alot right now, and its understable why she is shaky. Jul, Need for influenza vaccination (ICD-10 - Z23) [employer] Other 11-02-2022 Evaluation note* Encounter Date Diagnosis Assessment Notes Treatment Notes Treatment Clinical Notes Jul, Cough (ICD-10 - R05.9) Jul, Interstitial lung disease (ICD-10 - J84.9) [employer] Other 11-02-2022 History general Narrative - Reported* Type Description Date Medical History Esophageal reflux Medical History sleep apnea with cpap Medical History LBP Medical History allergic rhinitis Medical History hypoglycemia in the morning Medical History Hypoglycaemia NOS Medical History LUMBAR SPONDYLOSIS/RADICULOPATHY Medical History HTN Medical History ARTHRITIS Medical History HLD Medical History lactose intolerance Medical History Cov[place] 03/2022 [place] Surgical History bladder surgery Surgical History partial hysterectomy Surgical History arthroscopic knee surgery Surgical History mammgram 08/2010 Surgical History dexa 08/2010 Surgical History back Surgery Surgical History Bilateral cataract surgery Surgical History Laser Eye surgery 2013 Surgical History Lumbar decompressive surgery 20 15 Surgical History cholecystectomy 2018 Surgical History Ablation- 2017 Surgical History back injection 10/2020 Hospitalization History hysterectomy Hospitalization History bladder surgery Hospitalization History [facility] [place] [facility] [place] 8 Hospitalization History UTI 2021 Hospitalization History [facility] [place] 02/2022 [employer] Other 10-13-2022 Evaluation note* Encounter Date Diagnosis Assessment Notes Treatment Notes Treatment Clinical Notes Jun, Cough (ICD-10 - R05.9) [employer] Other 10-05-2022 History general Narrative - Reported* Type Description Date Medical History Esophageal reflux Medical History sleep apnea with cpap Medical History LBP Medical History allergic rhinitis Medical History hypoglycemia in the morning Medical History Hypoglycaemia NOS Medical History LUMBAR SPONDYLOSIS/RADICULOPATHY Medical History HTN Medical History ARTHRITIS Medical History HLD Medical History lactose intolerance Surgical History bladder surgery Surgical History partial hysterectomy Surgical History arthroscopic knee surgery Surgical History mammgram 08/2010 Surgical History dexa 08/2010 Surgical History back Surgery Surgical History Bilateral cataract surgery Surgical History Laser Eye surgery 2013 Surgical History Lumbar decompressive surgery 20 15 Surgical History cholecystectomy 2018 Surgical History Ablation- 2017 Surgical History back injection 10/2020 Hospitalization History hysterectomy Hospitalization History bladder surgery Hospitalization History [facility] [place] Hospital[place] [facility] [place] 8 Hospitalization History UTI 2021 [employer] Other 09-26-2022 Evaluation note* Encounter Date Diagnosis Assessment Notes Treatment Notes Treatment Clinical Notes May, Enlarged thyroid (ICD-10 - E04.9) [employer] Other 09-22-2022 Evaluation note* Encounter Date Diagnosis Assessment Notes Treatment Notes Treatment Clinical Notes May, Essential hypertension (ICD-10 - I10) Patient continues to do well with management of hypertension.Reviewe d importance of nonpharmacologic treatment measures including excercise, diet, weight control. Currently meets AHA criteria for controlled hypertension. Criteria for medication adjustments reviewed. Taking all meds as directed reinforced. May, Type 2 diabetes mellitus 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, unspecified whether custodial insulin use (ICD-10 - E11.9) Type 2 DM remains reasonably well controlled. Sugar logs reviewed. Medications verified. No patterns of poor control. We reviewed the importance of medication compliance, meal timing as well as content and the need for a bedtime snack. We talked about current medication specifically. We reviewed comorbidities associated with type 2 DM including HTN, CAD, dyslipidemia. May, Cough (ICD-10 - R05.9) Chest Xray 05/26/2022 shows interstitial changes. there is some irritation particularly on the left side more than the RT. It is believed a lot of the coughing is D/T upper airway. Clinical impressions discussed, all questions answered. CT chest non con will be ordered. Referral sent to Pulmonology May, Edema extremities (ICD-10 - R60.0) Labs WNL, renal function stable. Weight is unchanged. Edema is likely a consequence of other things going on in her lungs.Further evaluation is required, Echocardiogram will be ordered to R/O cardiac concerns. Pt advised she not need need to wear her compression stocking Elevate legs when lying supine, May, Cardiomegaly (ICD-10 - I51.7) May, Interstitial lung disease (ICD-10 - J84.9) [employer] Other 09-15-2022 Evaluation note* Encounter Date Diagnosis Assessment Notes Treatment Notes Treatment Clinical Notes May, Cough (ICD-10 - R05.9) [employer] Other 09-08-2022 Evaluation note* Encounter Date Diagnosis Assessment Notes Treatment Notes Treatment Clinical Notes May, SOB (shortness of breath) (ICD-10 - R06.02) [employer] Other 08-22-2022 Evaluation note* Encounter Date Diagnosis Assessment Notes Treatment Notes Treatment Clinical Notes Apr, Essential hypertension (ICD-10 - I10) [employer] Other 04-25-2022 Evaluation note* Encounter Date Diagnosis Assessment Notes Treatment Notes Treatment Clinical Notes Dec, HTN (hypertension) (ICD-10 - I10) Patients blood pressure is well controlled at this time. Denies cardiac symptoms at todays visit. We will continue to monitor. Continue above medications. Dec, Hospital discharge follow-up (ICD-10 - Z09) All data from her brief hospitalization in [place] were reviewed.Final diagnosis was dehydration with syncope. A cardiac source was not found to be present. Appropriate studies were done, including labs and x-rays, and these were reviewed in great detail. Initially was thought to have a urinary tract infection, but subsequently, cultures came back negative.I do not feel that a further cardiac work-up is indicated at this time. In all probability, may have had vasovagal syncope secondary to being on the toilet. Dec, Grief (ICD-10 - F43.20) She is to continue to talk about her emotions, she was advised of the emotions that she may experience. Dec, UTI (urinary tract infection) (ICD-10 - N39.0) She is to continue to stay hydrated throughout the day. Dec, Tremor observed on examination (ICD-10 - R25.1) Intensional tremor left greater than right, medications prescribed have SE's. No signs of Parkinsons. [employer] Other 04-04-2022 Evaluation note* Encounter Date Diagnosis Assessment Notes Treatment Notes Treatment Clinical Notes Dec, GERD (gastroesophageal reflux disease) (ICD-10 - K21.9) [employer] Other 2022 Evaluation note* Encounter Date Diagnosis Assessment Notes Treatment Notes Treatment Clinical Notes Nov, HTN (hypertension) (ICD-10 - I10) Patients blood pressure is well controlled at this time. Denies cardiac symptoms at todays visit. We will continue to monitor. Continue above medications. Nov, Diabetes (ICD-10 - E11.9) I would like to cut back on Metformin, skip morning dose of Metformin and take it in the evening. She is to have a snack before bedtime. Her A1C 5.3% is well controlled. I'm hoping she won't have the hypoglycemia episodes and will fix the fatigue that she is having and this should help with her sleeping at night. Nov, GERD (gastroesophageal reflux disease) (ICD-10 - K21.9) Patients reflux symptoms remain unchanged at this time. We Discussed the importance of meal content and timing. Reviewed the importance to avoid overeating and eating late in evening. Take medication as directed and we will continue to monitor. Nov, Hypoglycemia (ICD-10 - E16.2) I would like to cut Metformin from bid to once a day in the evening. Nov, Overactive bladder (ICD-10 - N32.81) Managed with medication Nov, Cough (ICD-10 - R05.9) Cough could be realted to GERD, She is to eat earlier before going to bed. 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 Currently meets AHA criteria for controlled hypertension. Criteria for medication adjustments reviewed. Taking all meds as directed reinforced. Aug, Gastroesophageal reflux disease, unspecified whether esophagitis present (ICD-10 - K21.9) GERD remains stable. Importance of meal timing and content reviewed. Avoid over eating and late meals. Pay attention to changes in appetite, weight, and bowel functions. 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 Sugar logs reviewed. Medications verified. No patterns of poor control. We reviewed the importance of medication compliance, meal timing as well as content and the need for a bedtime snack. We talked about current medication specifically. We reviewed comorbidities associated with type 2 DM including HTN, CAD, dyslipidemia. Advised to become more active Aug, Overweight (ICD-10 - E66.3) Encouraged to continue watching their diet and increase exercise regimen. [employer] Other 11-18-2021 Evaluation note* Encounter Date Diagnosis Assessment Notes Treatment Notes Treatment Clinical Notes Jul, Essential hypertension (ICD-10 - I10) Patient continues to do well with management of hypertension.Reviewed importance of nonpharmacologic treatment measures including excercise, diet, weight control. Currently meets AHA criteria for controlled hypertension. Criteria for medication adjustments reviewed. Taking all meds as directed reinforced. Jul, Cough (ICD-10 - R05.9) Lungs are clear on exam, she may have influenza vaccine today. the cough will continue to linger from recent Pneumonia DX. Jul, Diabetes (ICD-10 - E11.9) Healthy diet and exercise encouraged. Weight loss helps to reduce blood sugars and A1C. Wear supportive shoes, avoid open toed shoes. Check feet daily. Rx refilled today Jul, GERD (gastroesophageal reflux disease) (ICD-10 - K21.9) Reflux symptoms remain unchanged. Discussed the importance of meal content. They should avoid overeating and eating meals late in the evening. Take medication as directed and we will continue to monitor. Jul, Need for influenza vaccination (ICD-10 - Z23) Flu vacciine given today, patient may have Covid booster following her next OV Jul, Ankle edema (ICD-10 - M25.473) well controlled, no change in Rx Jul, Nausea (ICD-10 - R11.0) Take medication as directed. No change in Lasix at this time. Patient verbalized understanding and agreement with treatment plan. [employer] Other 10-22-2021 Evaluation note* Encounter Date Diagnosis Assessment Notes Treatment Notes Treatment Clinical Notes Jun, Contact with and (suspected) exposure to other viral communicable diseases (ICD-10 - Z20.828) Go to the ER for further evaluation of her fever, fatigue, headache. Patient and daughter are instructed to go to the ER today for further evaluation of her symptoms. Patient daughter verbalize understanding and agreement with this plan Jun, Fever, unspecified fever cause (ICD-10 - R50.9) Jun, Other Additional time spent conducting pre-visit phone call, screening for symptoms, instructions on social distancing, application and removal of PPE, and cleaning of examination room, equipment and supplies was preformed. Patient education given for testing methodology and results. Patient care instructions given in writting by [facility] document. [employer] Other 09-09-2021 Evaluation note* Encounter Date Diagnosis Assessment Notes Treatment Notes Treatment Clinical Notes May, Type 2 diabetes mellitus 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, unspecified whether custodial insulin use (ICD-10 - E11.9) Type 2 DM remains reasonably well controlled. Sugar logs reviewed. Medications verified. No patterns of poor control. We reviewed the importance of medication compliance, meal timing as well as content and the need for a bedtime snack. We talked about current medication specifically. We reviewed comorbidities associated with type 2 DM including HTN, CAD, dyslipidemia. She may drink Glucerna between meals May, Essential hypertension (ICD-10 - I10) Patient continues to do well with management of hypertension.Reviewed importance of nonpharmacologic treatment measures including excercise, diet, weight control. Currently meets AHA criteria for controlled hypertension. Criteria for medication adjustments reviewed. Taking all meds as directed reinforced. May, Gastroesophageal reflux disease, unspecified whether esophagitis present (ICD-10 - K21.9) GERD remains stable. Importance of meal timing and content reviewed. Avoid over eating and late meals. Pay attention to changes in appetite, weight, and bowel functions. May, Anxious mood (ICD-10 - F41.9) Remains stable and well balanced with current management. Takes meds as recommended. No medication side effects. Talked about need for diet and exercise as well as engaging in personal tasks and hobbies that are enjoyable. The concept of mindfullness was discussed as well as ways to promote personal growth. May, Edema of extremities (ICD-10 - R60.0) Pt advised if she doesn't find relief of edema with Lasix being reduced to 20 mg QOD, she may stop the medication. May, Nausea (ICD-10 - R11.0) May, Suspected UTI (ICD-1 0 - R39.89) [employer] Other Evaluation noteNo InformationNortVivere [facility] Other Evaluation noteNoErly Other Evaluation noteNo assessment information available [facility] Work Phone: [facility] general Narrative - Reported* Type Description Date Medical History Esophageal reflux Medical History sleep apnea with cpap Medical History LBP Medical History allergic rhinitis Medical History hypoglycemia in the morning Medical History Hypoglycaemia NOS Medical History LUMBAR SPONDYLOSIS/RADICULOPATHY Medical History HTN Medical History ARTHRITIS Medical History HLD Medical History lactose intolerance Surgical History bladder surgery Surgical History partial hysterectomy Surgical History arthroscopic knee surgery Surgical History mammgram 08/2010 Surgical History dexa 08/2010 Surgical History back Surgery Surgical History Bilateral cataract surgery Surgical History Laser Eye surgery 2013 Surgical History Lumbar decompressive surgery 20 15 Surgical History cholecystectomy 2017 Surgical History Ablation- 2017 Surgical History back injection 10/2020 Hospitalization History hysterectomy Hospitalization History bladder surgery Hospitalization History [place] [place] [facility] [place] [employer] Other Hispyyi general Narrative - ReportedNoErly Other Hisaofu general Narrative - Reported* Type Description Date Medical History Esophageal reflux Medical History sleep apnea with cpap Medical History LBP Medical History allergic rhinitis Medical History hypoglycemia in the morning Medical History Hypoglycaemia NOS Medical History LUMBAR SPONDYLOSIS/RADICULOPATHY Medical History HTN Medical History ARTHRITIS Medical History HLD Medical History lactose intolerance Surgical History bladder surgery Surgical History partial hysterectomy Surgical History arthroscopic knee surgery Surgical History mammgram 08/2010 Surgical History dexa 08/2010 Surgical History back Surgery Surgical History Bilateral cataract surgery Surgical History Laser Eye surgery 2013 Surgical History Lumbar decompressive surgery 20 15 Surgical History cholecystectomy 2018 Surgical History Ablation- 2017 Surgical History back injection 10/2020 Hospitalization History hysterectomy Hospitalization History bladder surgery Hospitalization History [facility] Hospitalization History [facility]-cholecystectomy 201 8 Hospitalization History UTI 2021 [employer] Other Hisiykx general Narrative - Reported* Type Description Date Medical History Esophageal reflux Medical History sleep apnea with cpap Medical History LBP Medical History allergic rhinitis Medical History hypoglycemia in the morning Medical History Hypoglycaemia NOS Medical History LUMBAR SPONDYLOSIS/RADICULOPATHY Medical History HTN Medical History ARTHRITIS Medical History HLD Medical History lactose intolerance Medical History Covid 03/2022 while [place] Surgical History bladder surgery Surgical History partial hysterectomy Surgical History arthroscopic knee surgery Surgical History mammgram 08/2010 Surgical History dexa 08/2010 Surgical History back Surgery -2012 Surgical History Bilateral cataract surgery Surgical History Laser Eye surgery 2013 Surgical History Lumbar decompressive surgery 20 15 Surgical History cholecystectomy 2018 Surgical History Ablation- 2018 Surgical History back injection 10/2020 Hospitalization History hysterectomy Hospitalization History bladder surgery Hospitalization History [place] Hospital[place] [facility] [place] 8 Hospitalization History UTI 2021 Hospitalization History [facility] [place] 02/2022 [employer] Other History general Narrative - Reported* Type Description Date Medical History Esophageal reflux Medical History sleep apnea with cpap Medical History LBP Medical History allergic rhinitis Medical History hypoglycemia in the morning Medical History Hypoglycaemia NOS Medical History LUMBAR SPONDYLOSIS/RADICULOPATHY Medical History HTN Medical History ARTHRITIS Medical History HLD Medical History lactose intolerance Medical History Covid 03/2022 while in the Surgical History bladder surgery Surgical History partial hysterectomy Surgical History arthroscopic knee surgery Surgical History mammgram 08/2010 Surgical History dexa 08/2010 Surgical History back Surgery Surgical History Bilateral cataract surgery Surgical History Laser Eye surgery 2013 Surgical History Lumbar decompressive surgery 20 15 Surgical History cholecystectomy 2018 Surgical History Ablation- 2017 Surgical History back injection 10/2020 Hospitalization History hysterectomy Hospitalization History bladder surgery Hospitalization History [place] [facility] [place] 8 Hospitalization History UTI 2021 Hospitalization History [facility] [place] 02/2022 Hospitalization History [facility] [place] 09/2021 [employer] Other History general Narrative - ReportedNoErly Other History general Narrative - ReportedNoErly Other History general Narrative - Reported* Type Description Date Medical History Esophageal reflux Medical History sleep apnea with cpap Medical History LBP Medical History allergic rhinitis Medical History hypoglycemia in the morning Medical History Hypoglycaemia NOS Medical History LUMBAR SPONDYLOSIS/RADICULOPATHY Medical History HTN Medical History ARTHRITIS Medical History HLD Medical History lactose intolerance Medical History Covid 03/2022 while [place] Medical History interstitial lung disease Medical History bronchiectesis Surgical History bladder surgery Surgical History partial hysterectomy Surgical History arthroscopic knee surgery Surgical History mammgram 08/2010 Surgical History dexa 08/2010 Surgical History back Surgery -2012 Surgical History Bilateral cataract surgery Surgical History Laser Eye surgery 2013 Surgical History Lumbar decompressive surgery 20 15 Surgical History cholecystectomy 2017 Surgical History Ablation- 2017 Surgical History back injection 10/2020 Hospitalization History hysterectomy Hospitalization History bladder surgery Hospitalization History [place] [facility] [place] [facility] [place] 8 Hospitalization History UTI 2021 Hospitalization History [facility] [place] 02/2022 Hospitalization History [facility] [place] 09/2021 [employer] Other Reason for visit NarrativeClinical referral/lock note [employer] Other Chief Complaint and Reason for Visit Chief Complaint I10 E11.9 R05.9 R60. 0 Chief Complaint I10 E11.9 R05.9 R60. 0 r06.02 Chief Complaint I10 E11.9 R05.9 R60. 0 r06.02 R05.9 R60.0 I51.7 Chief Complaint J84.9 Chief Complaint R39.89 j84.9 Advance Directives Advance Directive Response Recorded Date/ Time Advance Directives Yes March 06 11:08am Reason for Referral Reason * F/U 06/18 gino ilable physician consult treat cough Diagnosis 1 Cough (R05.9) Referral Organization [facility] Referring Provider First Name Brendon Referring Provider Last Name Annelise Referring Provider Specialty Internal Me dicine Referred Organization [facility] Referred Address [address] [place] [phone] Referred Provider Specialty Pulmonary Di seases Referral Priority Urgent General Notes Jocelin Peck 05/18 01:33:21 PM >Referral sent P2P Jocelin Peck 06/20/2022 03:17:10 PM > please have Dr. Annelise ledezma note from 06/07 Summary Purpose Family History No Family History Records FoundNo Family History Records FoundNo Family History Records Found Additional Source Comments REASON FOR VISIT (unrecogniz ed section and content) Clinical ill#23 WHITE IMPALA COUGH, H/A, FATIGUE, WEAKNESSNo InformationClinical3 month Follow upNo Information3 month Follow up2 week follow upRefills3 month Follow upMessage from [facility] f/uClinical weakness/illClinical updateClinical Discharge from [place]Clinical edemaClinical updateClinical edema/coughRefillsClinicalClinical updateecho resultsPFT results3 weeks follow upRefillsREF BY DR. MOMIN FOR COUGH, COPDPulmonary Office Notescheck upRefillsClinical update6 week f/u ILDClinical shakinessdiscuss shakiness2 month Follow upClinicalClinical follow for home healthNo Information2 month Follow upMedical records requestClinical FYIClinical lower extremity edema3 month f/u with CTClinical RX home deliveryfoot edemaClinical ThrushClinicalClinicalFYI onlyLEG EDEMA F/UClinical updateClinicalClinical-Discharged from OT6 week follow upRefillsClinicalCHECK UP - RELEASED FROM MARYJOnarayanupmessageClinicalmessagerefillmessagemessagemessageUpdateTCMtbh - weakness, PT and OT [facility] OTmessagetbh - weakness, PT and OT has been ordered per Home HealthBack Spasms, Not Eating Well4 mo f/u ILD, Cough, Pneumonitis, Bronchiectasisweakness, difficulty with balanceLab results3 month Follow up Care Teams (unrecognized sec tion and content) Team Status: Inactive Member Role Status Dates Brendon Momin MD Primary Care Provider, Attendin g Provider Active Team Status: Active Member Role Status Dates Brendon Momin MD Primary Care Provider Active Team Status: Inactive Member Role Status Dates Brendon Momin MD Primary Care Provider Active Staci Asencio APRN ACNP- Attending Provider Active Goals (unrecognized section and content) Goals may be documented in a n alternate section INFORMATION SOURCE (unrecogn ized section and content) DATE CREATED AUTHOR 07/24/2022 [facility] DATE CREATED AUTHOR AUTHOR'S ORGANIZ ATION 01/30/2023 [facility] DATE CREATED AUTHOR AUTHOR'S ORGANIZ ATION 06/01/2023 [facility] FOR RECORDS PERTAINING TO PATIENTS WHO ARE OR HAVE BEEN ENROLLED IN A CHEMICAL DEPENDENCY/SUBSTANCEABUSE PROGRAM, SOME INFORMATION MAY BE OMITTED. This clinical summary was aggregated from multiple sources. Caution should be exercised in using it in the provision of clinical care. This summary normalizes information from multiple sources, and as a consequence, information in this document may materially change the coding, format and clinical context of patient data. In addition, data may be omitted in some cases. CLINICAL DECISIONS SHOULD BE BASED ON THE PRIMARY CLINICAL RECORDS. [facility]. provides no warranty or guarantee of the accuracy or completeness of information in this document.
== END 2023-07-24 16:32 | disposition home or self-care (01) ==
LOC: LAB 16:31
PROVIDERS: PCP Family Medicine; Visit Provider Nurse Practitioner Family
DX: R53.1 Weakness (principal); R68.83 Chills (without fever); N39.0 Urinary tract infection, site not specified
CPT/HCPCS: 81003; 87086

== ENCOUNTER 2023-12-10 14:54 | Outpatient (OUT) | payer MEDICARE, SELFPAY ==
--- NOTE | 2023-12-10 15:00 | CA_ITS ---
Patient Name: SALMA QUAN MR#: [id number] : 1935 Exam Date: 12/10/2023 Ordering Doctor: DR LILY MAHMOOD M.D. ECHOCARDIOGRAM REPORT PROCEDURE: CA ECHO DOPPLER COMPLETE INDICATIONS: Systolic murmur COMPARISON: None. DESCRIPTION: COMPLETE ECHOCARDIOGRAM Real-time transthoracic echocardiography with 2D, M-mode, spectral and color flow Doppler performed. QUALITY: Technical quality was good. LEFT VENTRICLE: Normal chamber size. Thickened septal wall. Global left ventricular systolic function is normal. LV EF: Visual estimation of left ventricular ejection fraction is 65%. DIASTOLIC: Grade I diastolic dysfunction. ATRIAL SEPTUM: LEFT ATRIUM: Mild dilatation. RIGHT ATRIUM: Mild dilatation. RIGHT VENTRICLE: Normal chamber size. Normal right ventricular systolic function. TRICUSPID VALVE: Normal mobility and thickness. No stenosis with trivial regurgitation. Mild pulmonary hypertension. RVSP 44 mmHg. MITRAL VALVE: Mildly thickened with normal mobility. No evidence of mitral valve stenosis. Mild mitral annular calcification. Mild mitral regurgitation. AORTIC VALVE: Normal trileaflet appearance. Mildly calcified aortic valve. Mildly diminished mobility. Doppler velocity suggest mild aortic valve stenosis. DVI 0.5, CARLOS 1.6 cm2, Vmax 2.1m/s. Trivial aortic regurgitation. AORTIC ROOT: Normal diameter and appearance. PULMONIC VALVE: Normal thickness and mobility. No stenosis. Trivial regurgitation. PERICARDIUM: No evidence of pericardial effusion. IVC: Collapses with inspirations. Normal size. PLEURA: CONCLUSION: 1. Left ventricular systolic function is normal. LVEF is 65%. 2. Normal right ventricular size and systolic function. 3. Mild biatrial dilatation. 4. Mild diastolic dysfunction. 5. Mild mitral regurgitation. 6. Mild aortic valve stenosis. 7. Mildly elevated right-sided pressures. Adult Echocardiography Procedure Report Left Ventricle LVEDD (3.7 - 5.6 cm): 4.17 cm LVESD (2.2 - 4.0 cm): 2.59 cm LVIVS thickness (0.6 - 1.2 cm): 1.16 cm LVPW thickness (0.5 - 1.0 cm): 0.99 cm e': 0.07 m/s E - e': 13.25 LVOT Max Gradient: 5.65 mm[Hg] LVOT Area (cm2): 1.19 m/s Peak Velocity (LVOT): 1.19 m/s Mean Velocity (LVOT): 0.77 m/s LVOT Diameter 1.75 cm Left Ventricular Ejection Fraction: 65 % Left Atrium LA Volume Index (2D A2C): 37.44 ml/m2 Left Atrium Systolic Dimension: 4.08 cm Mitral Valve MV E to A Ratio: 0.81 Mitral Valve A-Wave Peak Velocity: 1.16 m/s Mitral Valve E-Wave Peak Velocity: 0.94 m/s Right Ventricle RV Internal Diastolic Dimension: 3.43 cm Aorta AO Root Diam: 2.84 cm Ascending Ao Diam: 2.46 cm Aortic Valve AoV Area (Peak Kostas): 1.34 cm2, 1.33 cm2 AoV Area (VTI): 1.51 cm2, 1.58 cm2 Peak Velocity(Antegrade Flow): 2.13 m/s, 2.12 m/s Peak Gradient(Antegrade Flow): 18.19 mm[Hg], 17.95 mm[Hg] Mean Velocity(Antegrade Flow): 1.35 m/s, 1.49 m/s Mean Gradient(Antegrade Flow): 8.26 mm[Hg], 9.98 mm[Hg] Velocity Time Integral: 46.10 cm, 50.43 cm Tricuspid Valve Peak Velocity (Regurgitant Flow): 2.05 m/s, 2.18 m/s, 3.21 m/s Pulmonic Valve Mean Gradient: 2.78 mm[Hg], 3.05 mm[Hg] Mean Velocity: 0.78 m/s, 0.81 m/s Peak Velocity: 1.19 m/s Peak Gradient: 5.33 mm[Hg], 5.93 mm[Hg] Right Atrium Right Atrium Systolic Pressure: 55.96 ml, 55.96 ml Dictated by: Lauro Patel M.D. on 12/10/2023 at 18:44 Approved by: Lauro Patel M.D. on 12/10/2023 at 18:47
== END 2023-12-10 14:55 | disposition home or self-care (01) ==
LOC: CARD 14:55
PROVIDERS: PCP Family Medicine; Visit Provider Family Medicine
DX: R01.1 Cardiac murmur, unspecified (principal); I08.0 Rheumatic disorders of both mitral and aortic valves
CPT/HCPCS: 93306

== ENCOUNTER 2023-12-25 11:58 | Emergency (ER) | payer MEDICARE, SELFPAY ==
[2023-12-25] VITALS (11 sets, daily range): BP systolic 130–187; BP diastolic 52–86; PULSE 69; TEMP 36.4; O2SAT 95–98; BMI 32.7
--- NOTE | 2023-12-25 12:43 | XR_ITS ---
The [address] [address] Patient Name: SALMA QUAN MRN: [id number] date: 1935 Sex: F Assigned Patient Location: ER Current Patient Location: .[facility] Accession/Order Number: [id number] Exam Date: 12/25/2023 12:35 Report Date: 12/25/2023 13:05 At the request of: RAYMOND HUITRON Procedure: XR lumbar spine 2-3V EXAMINATION: XR lumbar spine 2-3V HISTORY: pain COMPARISON: No relevant comparison available. FINDINGS: BONES: Normal alignment with no acute fracture or spondylolisthesis. Posterior decompression bilateral transpedicular fusion L3-L5. No mechanical failure. Moderate to severe diffuse degenerative spondylosis. Calcification of anterior longitudinal ligament. Moderate to severe facet osteoarthropathy. 5 mm retrolisthesis of L2 on L3 DISC SPACES: The level disc space narrowing with collapse and endplate sclerosis L2-L3. Interbody spacer L4-5 PARASPINOUS: Negative. No paraspinous abnormality is seen. OTHER: Negative. XR/XR lumbar spine 2-3V IMPRESSION: Moderate to severe degenerative changes Electronically authenticated by: BOBBY RAMACHANDRAN Date: 12/25/2023 13:05
[2023-12-25 14:26] LABS: Bilirubin Urine NEGATIVE (NEGATIVE); Blood Urine MODERATE (NEGATIVE); Clarity Urine CLEAR (CLEAR); Color Urine YELLOW (YELLOW); Glucose Urine UA NEGATIVE (NEGATIVE); Ketones Urine NEGATIVE (NEGATIVE); Leukocyte Esterase Urine NEGATIVE (NEGATIVE); Nitrite Urine NEGATIVE (NEGATIVE); Protein Urine NEGATIVE (NEG/TRACE); pH Urine 6.5 (5.0-9.0)
[2023-12-25 15:00] LABS: Bacteria Urine TRACE #/HPF (NONE SEEN); Cast Seen? NONE SEEN #/LPF (NONE SEEN); Crystals Seen? None Seen #/HPF (None Seen); Mucus Urine NONE SEEN (NONE SEEN); RBC Urine 20-50 #/HPF (0-2); Squamous Epithelial Cell Urine MODERATE #/LPF (NONE/RARE)
[2023-12-25] MEDS: TRAMADOL HCL 50 MG TABLET PO (15:22)
--- NOTE | 2023-12-25 15:22 | ED.GENADUL1 ---
HPI HPI - General Adult General Chief complaint: Back Pain/Injury Stated complaint: BACK PAIN Time Seen by Provider: 12/25/23 12:23 Source: patient Mode of arrival: ambulance Limitations: no limitations History of Present Illness HPI narrative: Patient is a 88-year-old female who is complaining of bilateral back pain that radiates to bilateral buttocks since , 6 days ago. Patient has no signs or symptoms of saddle anesthesia, cauda equina. Patient uses a walker at home, patient lives with her at home. Daughter is at bedside. Patient has had no acute injury. Patient has no signs of saddle anesthesia, cauda equina, patient has no urinary frequency, urgency or burning. No diarrhea or constipation. No abdominal pain, nausea or vomiting. No injury, no fall. Patient does not recall doing anything last Saturday, she woke up morning with the pain. Patient uses a walker at home. No other acute complaints. Patient is using Tylenol with little relief. Patient is using Voltaren gel with little relief. All systems are negative except as noted/marked. All systems reviewed and otherwise negative. Nurses note and vital signs reviewed and patient is not hypoxic. General: The patient appears well and in no apparent distress. Patient is resting comfortably on cart. Patient is not toxic, lethargic, or listless Skin: Warm, dry, no pallor noted. There is no rash noted. No petechiae, purpura. Head: Normocephalic, atraumatic Eye: Normal conjunctiva, no drainage, EOMI. PERRL Ears, Nose, Mouth, and Throat: oral mucosa is moist. Nares patent. Mouth without vesicles. Cardiovascular: Regular Rate and Rhythm, no murmur, gallop, rub Respiratory: Patient is in no distress, no accessory muscle use, lungs are clear to auscultation, no wheezing, rales or rhonchi Back: Patient has mild to moderate tenderness to palpation to bilateral paralumbar soft tissue, patient has mild tenderness to palpation to bilateral piriformis muscle, negative straight leg raising test bilateral, no pain to bilateral hips with internal, external rotation or flexion bilateral. No saddle anesthesia symptoms, otherwise the rest her back is non-tender, no CVA tenderness bilaterally to percussion. No CT LS midline pain GI: no tenderness to palpation, no masses appreciated. No rebound, guarding, or rigidity noted. No distention Musculoskeletal: Patient has full range of motion of all of the extremities, no motor, sensory, or focal neurological deficits Neurological: A&O x4, normal speech Psychiatric: Cooperative Related Data Home Medications ?Medication ?Instructions ?Recorded ?Confirmed estradiol 0.01% (0.1 mg/gram) 1 g vaginal .Twice a week 04/20/23 04/20/23 vaginal cream furosemide 40 mg tablet 60 mg PO DAILY 04/20/23 12/25/23 oxybutynin chloride 5 mg tablet 5 mg PO DAILY 04/20/23 12/25/23 ropinirole 0.5 mg tablet 0.5 mg PO .hs 04/20/23 12/25/23 nitrofurantoin 100 mg PO DAILY 12/25/23 12/25/23 monohydrate/macrocrystals 100 mg capsule ondansetron HCl 4 mg tablet 4 mg PO Q12H PRN nausea and 12/25/23 12/25/23 vomiting potassium chloride 20 mEq 20 meq PO DAILY 12/25/23 12/25/23 tablet,extended release(part/cryst) Previous Rx's ?Medication ?Instructions ?Recorded methocarbamol 500 mg tablet 500 mg PO Q8H PRN muscle pain #10 12/25/23 tabs methylprednisolone 4 mg tablets in 4 mg PO DAILY 6 days #21 ea 12/25/23 a dose pack (Medrol (Jim)) tramadol 50 mg tablet 50 mg PO Q8H PRN pain #14 tabs 12/25/23 Allergies Allergy/AdvReac Type Severity Reaction Status Date / Time naproxen AdvReac Mild Verified 04/20/23 17:50 Opioid HPI Opioid Management Most Recent Opioid Data: Last Pain Scale 8 12/25/23 15:23 Last NOV Pain Assessment 12/25/23 15:23 [facility] Medical History (Updated 12/25/23 @ 15:13 by Franki Gonzalez MD) Benign essential hypertension ?I10 - Essential (primary) hypertension (ICD-10) Type 2 diabetes mellitus with hyperglycemia ?E11.65 - Type 2 diabetes mellitus with hyperglycemia (ICD-10) Recurrent UTI ?N39.0 - Urinary tract infection, site not specified (ICD-10) Edema ?R60.9 - Edema, unspecified (ICD-10) Restless legs ?G25.81 - Restless legs syndrome (ICD-10) Social History (Updated 04/20/23 @ 22:23 by Yue Knutson) Within the past year, how often did you have a drink containing alcohol: never Score interpretation: A score less than 3 is consistent with normal alcohol consumption. Smoking status: Never smoker Non-prescribed substance use: denies use Previous occupational history: retired Highest level of school completed/degree received: high school graduate Are you now , , , , never or living with a partner: In a typical week, how many times do you talk on the telephone with family, friends, or neighbors: 3 or more times per week How often do you get together with friends or relatives: 3 or more times per week How often do you attend nondenominational or yarsanism services: 1-3 times per year Little interest or pleasure in doing things: not at all Feeling down, depressed, or hopeless: not at all Feel stressed/tense/nervous/anxious/difficulty sleeping: not at all Do you think of yourself as: straight/heterosexual Gender Identity: female Exam Constitutional Vital Signs, click to edit/add: Last Vital Signs Temp 97.6 F 12/25/23 12:05 Pulse 69 12/25/23 12:05 Resp 20 12/25/23 12:05 BP 145/53 H 12/25/23 15:01 Pulse Ox 97 12/25/23 15:01 O2 Del Method Room Air 12/25/23 12:14 Course Vital Signs Vital signs: Vital Signs Temperature 97.6 F 12/25/23 12:05 Pulse Rate 69 12/25/23 12:05 Respiratory Rate 20 12/25/23 12:05 Blood Pressure 130/52 12/25/23 12:05 Pulse Oximetry 97 12/25/23 12:05 Oxygen Delivery Method Room Air 12/25/23 12:05 Temperature 97.6 F 12/25/23 12:05 Pulse Rate 69 12/25/23 12:05 Respiratory Rate 20 12/25/23 12:05 Blood Pressure 145/53 H 12/25/23 15:01 Pulse Oximetry 97 12/25/23 15:01 Oxygen Delivery Method Room Air 12/25/23 12:14 Medical Decision Making MDM Narrative Medical decision making narrative: Patient is lumbar x-ray shows moderate to severe degenerative changes, urine shows no acute findings. Education on ice, stretching for lumbar pain, sciatica, piriformis syndrome was done at bedside and on discharge paperwork. Patient continues Tylenol, she was given a prescription for Ultram, Robaxin, and Medrol Dosepak. Patient feels safe going home, patient uses her walker typically. Patient will follow-up with PCP and additional therapy if needed. Lab Data Labs: Lab Results 12/25/23 Range/Units 12:45 Urine Color Yellow (YELLOW) Urine Clarity Clear (CLEAR) Urine pH 6.5 (5.0-9.0) Ur Specific [place] 1.020 (1.005-1.025) Urine Protein Negative (NEG/TRACE) mg/dL Urine Glucose (UA) Negative (NEGATIVE) mg/dL Urine Ketones Negative (NEGATIVE) mg/dL Urine Occult Blood Moderate A (NEGATIVE) Urine Nitrite Negative (NEGATIVE) Urine Bilirubin Negative (NEGATIVE) Urine Urobilinogen 1.0 (0.2-1.0) EU/dL Ur Leukocyte Esterase Negative (NEGATIVE) Urine RBC 20-50 A (0-2) #/HPF Urine WBC 2-5 A (NONE SEEN) #/HPF Ur Squamous Epith Cells Moderate A (NONE/RARE) #/LPF Urine Crystals None seen (None Seen) #/HPF Urine Bacteria Trace A (NONE SEEN) #/HPF Urine Casts None seen (NONE SEEN) #/LPF Urine Mucus None seen (NONE SEEN) Discharge Plan Discharge Stand Alone Forms: Portal Instructions Chief Complaint: Back Pain/Injury Clinical Impression: Lumbar radiculopathy, Lumbar back pain, Piriformis syndrome of both sides Patient Disposition: Home, Self-Care Time of Disposition Decision: 15:12 Condition: Fair Prescriptions / Home Meds: New methylprednisolone [Medrol (Jim)] 4 mg tablets,dose pack 4 mg PO DAILY 6 Days Qty: 21 0RF Rx Instructions: as directed methocarbamol 500 mg tablet 500 mg PO Q8H PRN (Reason: muscle pain) Qty: 10 0RF tramadol 50 mg tablet 50 mg PO Q8H PRN (Reason: pain) Qty: 14 0RF No Action estradiol 0.01 % (0.1 mg/gram) cream 1 g VAGINAL .Twice a week furosemide 40 mg tablet 60 mg PO DAILY oxybutynin chloride 5 mg tablet 5 mg PO DAILY ropinirole 0.5 mg tablet 0.5 mg PO .hs nitrofurantoin monohyd/m-cryst 100 mg capsule 100 mg PO DAILY ondansetron HCl 4 mg tablet 4 mg PO Q12H PRN (Reason: nausea and vomiting) potassium chloride 20 mEq tablet,ER particles/crystals 20 meq PO DAILY Print Language: Serbian Instructions: Sciatica (ED), Acute Low Back Pain (ED), Lumbar Radiculopathy (ED), Piriformis Syndrome (ED) Additional Instructions: Ice 20 minutes on, 20 minutes off. Do not use heat. Lumbar, sciatica, piriformis muscle stretching 3-4 times a day to help with pain. Follow-up with PCP for formal physical therapy as needed. Education done at bedside and on discharge paperwork. Continue to use walker. You may take Tylenol, Ultram, Robaxin, steroids, and ice all to help with pain. Referrals: Fatoumata Chase MD [Primary Care Provider] - 1 week Discharge Date/Time: 12/25/23 15:43
[2023-12-25] MEDS: ORPHENADRINE 60 MG/ 2 ML VIAL IM (15:23)
[2023-12-25] MEDS: KETOROLAC TROMETHAMINE 30 MG/ML VIAL 15 MG IM (15:23)
== END 2023-12-25 15:43 | disposition home or self-care (01) ==
PROVIDERS: Emergency Provider Emergency Medicine; PCP Family Medicine
DX: G57.03 Lesion of sciatic nerve, bilateral lower limbs (principal); M51.16 Intervertebral disc disorders with radiculopathy, lumbar region; M54.50 Low back pain, unspecified; I10 Essential (primary) hypertension; E11.9 Type 2 diabetes mellitus 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s; G25.81 Restless legs syndrome; Z87.440 Personal history of urinary (tract) infections; Z79.899 Other long term (current) drug therapy
CPT/HCPCS: 72100; 81001; 96372; 99285

== ENCOUNTER 2024-01-16 13:42 | Outpatient (OUT) | payer MEDICARE, SELFPAY ==
--- NOTE | 2024-01-16 13:43 | P.CN_ITS ---
Consult Note: HPI Data of Consult Requesting Physician: Margo Devi NP Primary Care Provider: Fatoumata Chase MD Consult Narrative Narrative: Dottie Bates a pleasant 88 year old female presents for evaluation and management of chronic low back pain, post lumbar fusion L3-5. Over the last 1 month intense sharp bilateral sciatic pain that required ER evaluation, she was given a medrol dose pack, tramadol, and methocarbamol. Patient was given a HEP at the ER which she has been engaged in without benefit. Today pain 4/10 increasing to 8/10, patient denies numbness tingling weakness of bilateral legs. utilizes a walker without recent fall. Pain across low back constant ache. Continues to find benefit from tylenol and tramadol 50mg BID PRN, could not tolerate methocarbamol. cc:: CC: Margo Devi NP Review of Systems ROS Status of ROS 10 or more systems reviewed and unremark able except as noted in history and below Musculoskeletal Reports: back pain PFSH PFSH Medical History Benign essential hypertension ?I10 - Essential (primary) hypertension (ICD-10) Type 2 diabetes mellitus with hyperglycemia ?E11.65 - Type 2 diabetes mellitus with hyperglycemia (ICD-10) Recurrent UTI ?N39.0 - Urinary tract infection, site not specified (ICD-10) Edema ?R60.9 - Edema, unspecified (ICD-10) Restless legs ?G25.81 - Restless legs syndrome (ICD-10) Social History Within the past year, how often did you have a drink containing alcohol: never Score interpretation: A score less than 3 is consistent with normal alcohol consumption. Smoking status: Never smoker Non-prescribed substance use: denies use Previous occupational history: retired Highest level of school completed/degree received: high school graduate Are you now , , , , never or living with a partner: In a typical week, how many times do you talk on the telephone with family, friends, or neighbors: 3 or more times per week How often do you get together with friends or relatives: 3 or more times per week How often do you attend restorationism or caodaism services: 1-3 times per year Little interest or pleasure in doing things: not at all Feeling down, depressed, or hopeless: not at all Feel stressed/tense/nervous/anxious/difficulty sleeping: not at all Do you think of yourself as: straight/heterosexual Gender Identity: female Meds Home Medications and Allergies Home Medications ?Medication ?Instructions ?Recorded ?Confirmed ?Type estradiol 0.01% (0.1 mg/gram) 1 g vaginal .Twice a week 04/20/23 04/20/23 History vaginal cream furosemide 40 mg tablet 60 mg PO DAILY 04/20/23 12/25/23 History oxybutynin chloride 5 mg tablet 5 mg PO DAILY 04/20/23 12/25/23 History ropinirole 0.5 mg tablet 0.5 mg PO .hs 04/20/23 12/25/23 History methocarbamol 500 mg tablet 500 mg PO Q8H PRN muscle pain #10 12/25/23 Rx tabs methylprednisolone 4 mg tablets in 4 mg PO DAILY 6 days #21 ea 12/25/23 Rx a dose pack (Medrol (Jim)) nitrofurantoin 100 mg PO DAILY 12/25/23 12/25/23 History monohydrate/macrocrystals 100 mg capsule ondansetron HCl 4 mg tablet 4 mg PO Q12H PRN nausea and 12/25/23 12/25/23 History vomiting potassium chloride 20 mEq 20 meq PO DAILY 12/25/23 12/25/23 History tablet,extended release(part/cryst) tramadol 50 mg tablet 50 mg PO Q8H PRN pain #14 tabs 12/25/23 Rx Allergies Allergy/AdvReac Type Severity Reaction Status Date / Time naproxen AdvReac Mild Verified 04/20/23 17:50 Exam Constitutional Documenting provider has reviewed patient's vital signs: yes Common normals: no apparent distress, oriented x3, healthy appearing, alert and well nourished General appearance: cooperative HENMT Common normals: normocephalic, hearing grossly normal bilaterally and moist oral mucous membranes Head and scalp: normocephalic Eye Common normals: PERRL Pupil: PERRL Neck & C-Spine Common normals: full ROM General: normal visual inspection Chest Common normals: inspection of chest normal Respiratory Common normals: normal respiratory effort, no retractions and no use of accessory muscles Back & Pelvis Lumbar spine/lower back: ROM limited, pain with ROM and straight leg raise negative bilaterally Sacroiliac joints: SI joints normal Other: axial low back pain facet loading positive at L1-2 L2-3 negative radiculopathy sensation intact BLE Extremity Common normals: full ROM General: edema (LLE edema, compression socks to bilateral feet/calves) Neuro Common normals: oriented x3, CN's II-XII intact bilaterally, moves all extremities, no focal motor deficits, no sensory deficits noted and deep tendon reflexes 2+ bilaterally Sensorium/orientation: alert Gait (neuro): antalgic and assistive device used walker Motor exam: strength 5/5 throughout and no movement abnormalities noted Psych Common normals: mental status grossly normal, thought process normal, cooperative, affect normal, speech normal and activity/motor behavior normal Speech: normal speech Thought process: normal thought process Results Imaging Lumbar Xray: Attestation: I have reviewed the pertinent imaging results. Radiologist's impression: FINDINGS: BONES: Normal alignment with no acute fracture or spondylolisthesis. Posterior decompression bilateral transpedicular fusion L3-L5. No mechanical failure. Moderate to severe diffuse degenerative spondylosis. Calcification of anterior longitudinal ligament. Moderate to severe facet osteoarthropathy. 5 mm retrolisthesis of L2 on L3 DISC SPACES: The level disc space narrowing with collapse and endplate sclerosis L2-L3. Interbody spacer L4-5 PARASPINOUS: Negative. No paraspinous abnormality is seen. OTHER: Negative. 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 Offered bilateral L1-2 L2-3 MBB x2 working towards RFA. Patient declining at this time, would like to think about and call back to schedule if necessary continue HEP as tolerated, has found improvement with radicular pain declining NS evaluation for lumbar instability defer MRI/CT patient has found benefit from tramadol 50mg BID PRN moderate to severe pain taking very sparingly, advised to continue through PCP at this time I did call and discuss with Dr Chase that at this time we are not taking over opioid pain medications f/u 1 week after each injection
== END 2024-01-16 13:43 | disposition home or self-care (01) ==
LOC: PM 13:42
PROVIDERS: PCP Family Medicine; Visit Provider Nurse Practitioner
DX: M47.816 Spondylosis without myelopathy or radiculopathy, lumbar region (principal); Z98.890 Other specified postprocedural states; M54.50 Low back pain, unspecified; M54.16 Radiculopathy, lumbar region
CPT/HCPCS: G0463

== ENCOUNTER 2024-07-10 08:55 | Outpatient (RCR) | payer MEDICARE, SELFPAY | END 2024-09-15 14:33 | disposition home or self-care (01) | LOC: OT 08:55 | PROVIDERS: PCP Family Medicine; Visit Provider Family Medicine | DX: I89.0 Lymphedema, not elsewhere classified (principal) | CPT/HCPCS: 97140; 97166; 97530; 97535 ==

== ENCOUNTER 2024-09-16 10:14 | Outpatient (RCR) | payer MEDICARE, SELFPAY | END 2024-09-26 07:37 | disposition home or self-care (01) | LOC: OT 10:14 | PROVIDERS: PCP Family Medicine; Visit Provider Family Medicine | DX: I89.0 Lymphedema, not elsewhere classified (principal) | CPT/HCPCS: 97140 ==

== ENCOUNTER 2024-12-10 14:37 | Outpatient (OUT) | payer MEDICARE, SELFPAY ==
[2024-12-10 15:29] LABS: Basophils Absolute Auto 0.1 10^3/uL (0.0-0.1); Basophils Percent Auto 1.1 % (0.2-2.0); Eosinophils Absolute Auto 0.3 10^3/uL (0.0-0.7); Eosinophils Percent Auto 4.6 % (0.9-7.0); Hematocrit 43.2 % (36.0-48.0); Immature Granulocytes Abs Auto 0.03 10^3/uL (0.00-0.03); Immature Granulocytes Pct Auto 0.5 % (0.0-0.5); Lymphocytes Absolute Auto 1.9 10^3/uL (1.2-3.8); Lymphocytes Percent Auto 28.9 % (20.5-60.0); Mean Corpuscular HGB Conc 32.4 g/dL (29.9-35.2); Mean Corpuscular Hemoglobin 31.2 pg (26.7-34.0); Mean Corpuscular Volume 96.2 fL (81.0-99.0); Mean Platelet Volume 9.4 fL (9.5-13.5); Monocytes Absolute Auto 0.7 10^3/uL (0.3-0.8); Monocytes Percent Auto 10.8 % (1.7-12.0); Neutrophils Absolute Auto 3.5 10^3/uL (1.4-6.5); Neutrophils Percent Auto 54.1 % (43.0-75.0); Platelet Count 243 10^3/uL (150-450); Red Blood Count 4.49 10^6/uL (4.20-5.40); Red Cell Distribution Width 13.9 % (11.0-15.0); White Blood Count 6.5 10^3/uL (4.0-11.0)
[2024-12-10 15:44] LABS: Anion Gap 10.7; Calcium 8.7 mg/dL (8.5-10.1); Carbon Dioxide 29.8 mmol/L (21.0-32.0); Chloride 108 mmol/L (98-107); Estimated GFR (African America >60 (>=60 mL/min/1.73m^2); Estimated GFR (Non-African Ame 52 (>=60 mL/min/1.73m^2); Glucose 134 mg/dL (74-106); Potassium 4.5 mmol/L (3.5-5.1); Sodium 144 mmol/L (136-145)
== END 2024-12-10 14:38 | disposition home or self-care (01) ==
PROVIDERS: PCP Family Medicine; Visit Provider Family Medicine
DX: I11.0 Hypertensive heart disease with heart failure (principal); I50.9 Heart failure, unspecified
CPT/HCPCS: 36415; 80048; 83880; 85025

== ENCOUNTER 2025-06-09 07:55 | Outpatient (OUT) | payer MEDICARE, SELFPAY ==
--- OUTSIDE RECORDS SUMMARY | 2025-06-08 11:00 | XMS_ITS | Continuity of Care Document ---
Author Organization [facility] Address [address] [place] [address] Phone Care Team Providers Care Vessel Scrapper Name Role Phone Fatoumata Chase MD Primary Care Provider Fatoumata Chase MD Attending Provider Care Teams Patient Care Team Team Status: Active Member Role Status Dates Fatoumata Chase MD Primary Care Provider Active Patient Care Team Team Status: Inactive Member Role Status Dates Fatoumata Chase MD Primary Care Provider Active Start: June 08, 2025 End: June 08, 2025 Fatoumata Chase MD Attending Provider Active St art: June 08, 2025 End: June 08, 2025 Chief Complaint and Reason for Visit Chief Complaint Admit Date 3 month f/u June 08, 2025 2:11pm Reason for Visit Admit Date HTN (hypertension) June 08, 2025 2:11pm Allergies, Adverse Reactions, Alerts Allergen Type Severity Reaction Last Updated Verified Status clarithromycin Allergy Unknown Unknown Reaction Sept ember 2024 2:22pm Yes Active dichloralphenazone Allergy Unknown Unknown Reaction June 08, 2025 2:22pm Yes Active esomeprazole Allergy Unknown stomach upset June 08, 2025 2:22pm Yes Active isometheptene Allergy Unknown Unknown Reaction Septe mber 2024 2:22pm Yes Active naproxen Allergy Unknown Shakiness, muscle spasms June 08, 2025 2:22pm Yes Active oxycodone Allergy Unknown Unknown Reaction Septembe r 2024 2:22pm Yes Active Amidrine Allergy Unknown Hives November 27 9:45am No Active Social History Smoking Status Status Start Date End Date Date of Observa tion Never smoked tobacco (finding) July 07, 2021 6:21pm Observation Status Observation Response Date of Response Legal Sex Female (finding) Sex Assigned At Female 1935 Family History Relationship Condition Age at Onset Recorded Date/T chata brother Epilepsy Unknown father Malignant neoplasm Unknown Unknown Malignant neoplasm of stomach Unknown mother Family history of emphysema Unknown Unknown Problems Active Problems Medical Problem Onset Date Status Upper airway cough syndrome Unknown Acti ve Medicare annual wellness visit, subsequent Unkno wn Active Obstructive sleep apnea Unknown Active Encounter for immunization Unknown Activ e Morbid obesity Unknown Active Systolic ejection murmur Unknown Active CHF (congestive heart failure) Unknown A ctive Chronic cough Unknown Active Lymphedema Unknown Active RLS (restless legs syndrome) Unknown Act ana Lumbar degenerative disc disease Unknown Active Diabetes mellitus with hyper glycemia, without long-term current use of insulin Unknown Active Bronchiectasis Unknown Active Balance disorder Unknown Active HTN (hypertension) Unknown Active Nausea Unknown Active Pneumonia Unknown Active Interstitial lung disease Unknown Active Pneumonitis Unknown Active Acute cholecystitis Unknown Active Medications Medication Status Dose Units Route Directions Qty Days St art Date Stop Date End Date Instructions Adherence Nitrofurant oin Monohyd/M-C ryst 100 mg capsule Discont inued 0 .ROUTE .COMPLEX ua ry 2023 3:09pm Febru irma 2023 3:10p m TAKE 1 CAPSULE BY MOUTH DAILY WITH FOOD Ondansetron Hcl 4 mg tablet Discont inued 0 .ROUTE .COMPLEX January 27, 2024 8:58am March 05, 2024 2:00p m TAKE 1 TABLET BY MOUTH TWICE DAILY NEEDED Nitrofurant oin Monohyd/M-C ryst 100 mg capsule Discont inued 0 .ROUTE .COMPLEX February 24, 2024 4:35pm Augus t 2023 11:42 am TAKE 1 CAPSULE BY MOUTH ONCE DAILY WITH FOOD Ropinirole 0.5 mg tablet Discont inued 0 .ROUTE .COMPLEX February 24, 2024 4:35pm Aprus t 2023 11:42 am TAKE 1 TABLET BY MOUTH TWICE DAILY Blood Sugar Diagnostic (Blood Glucose Test) strip Active 0 .Route 100 March 06, 2024 12:00a m Use to test blood sugar daily Nitrofurant oin Monohyd/M-C ryst 100 mg capsule Discont inued 0 .ROUTE .COMPLEX April 27, 2024 11:42a m Octob er 2023 8:27a m TAKE 1 CAPSULE BY MOUTH DAILY WITH FOOD Ropinirole 0.5 mg tablet Discont inued 0 .ROUTE .COMPLEX 60 April 27, 2024 11:42a m Octob er 2023 8:28a m TAKE 1 TABLET BY MOUTH TWICE DAILY Ondansetron Hcl 4 mg tablet Discont inued 0 .ROUTE .COMPLEX 30 May 04, 2024 12:10p m Septe mber 2023 8:20a m TAKE 1 TABLET BY MOUTH TWICE DAILY NEEDED Furosemide 40 mg tablet Discont inued 60 MG PO Every morning May 2023 12:00a m Septe er 2023 8:46a m Furosemide 40 mg tablet Discont inued 0 .ROUTE .COMPLEX 135 2023 8:46am December 07, 2024 1:55p m TAKE 1 & 1/2 (ONE AND ONE-HALF) TABLETS BY MOUTH DAILY Ondansetron Hcl 4 mg tablet Discont inued 0 .ROUTE .COMPLEX 30 May sandhya 2023 8:20am [facility] sandhya 2023 9:24a m TAKE 1 TABLET BY MOUTH TWICE DAILY NEEDED Ropinirole 0.5 mg tablet Discont inued 0 .ROUTE .COMPLEX 60 Junobe r 2023 8:28am Dece sandhya 2023 2:36p m TAKE 1 TABLET BY MOUTH TWICE DAILY Nitrofurant oin Monohyd/M-C ryst 100 mg capsule Discont inued 0 .ROUTE .COMPLEX 30 Octobe r 2023 8:27am [facility] sandhya 2023 9:34a m TAKE 1 CAPSULE BY MOUTH DAILY WITH FOOD Ondansetron Hcl 4 mg tablet Discont inued 0 .ROUTE .COMPLEX 60 [facility] er 2023 9:24am Dece sandhya 2023 2:36p m TAKE 1 TABLET BY MOUTH THREE TIMES DAILY NEEDED *MUST LAST 30 DAYS* Nitrofurant oin Monohyd/M-C ryst 100 mg capsule Discont inued 0 .ROUTE .COMPLEX 30 Dece er 2023 9:34am Dece sandhya 2023 2:36p m TAKE 1 CAPSULE BY MOUTH DAILY WITH FOOD Nitrofurant oin Monohyd/M-C ryst 100 mg capsule Discont inued 0 .ROUTE .COMPLEX 30 February 25, 2025 10:07a m March 09, 2025 3:07p m TAKE 1 CAPSULE BY MOUTH DAILY WITH FOOD Ropinirole 0.5 mg tablet Active 0 .ROUTE .COMPLEX 60 February 25, 2025 10:07a m TAKE 1 TABLET BY MOUTH TWICE DAILY Complies with drug therapy Ondansetron Hcl 4 mg tablet Active 0 .ROUTE .COMPLEX 60 March 29, 2025 10:50a m TAKE 1 TABLET BY MOUTH THREE TIMES DAILY NEEDED *MUST LAST 30 DAYS* Complies with drug therapy Nitrofurant oin Monohyd/M-C ryst 100 mg capsule Active 0 .ROUTE .COMPLEX 30 2024 4:34pm TAKE 1 CAPSULE BY MOUTH DAILY WITH FOOD Complies with drug therapy Metformin 500 mg tablet Discont inued 500 MG PO Twice daily April 05, 2018 12:00a m December 02, 2023 2:43p m Ondansetron Hcl 4 mg tablet Discont inued 4 MG PO Twice daily as needed for Nausea April 05, 2018 12:00a m December 02, 2023 3:03p m Lorazepam 0.5 mg tablet Discont inued 0.5 MG PO Daily April 05, 2018 12:00a m April 06, 2018 1:36a m Losartan 25 mg tablet Discont inued 25 MG PO Daily April 05, 2018 12:00a m December 02, 2023 2:43p m Gabapentin 300 mg capsule Discont inued 600 MG PO Daily April 05, 2018 12:00a m December 02, 2023 2:42p m Omeprazole 20 mg capsule,del ayed release(DR/ EC) Discont inued 20 MG PO Twice daily April 05, 2018 12:00a m January 28, 2024 11:15 am Oxybutynin Chloride 5 mg tablet Discont inued 5 MG PO Daily April 05, 2018 12:00a m March 05, 2024 2:01p m Tramadol (Ultram) 50 mg tablet Discont inued 50 MG PO Q6H as needed for pain 45 7 April 07, 2018 12:00a m Septe mb 2017 1:22p m 1/2 - 1 tab po q 6 hours prn pain Levofloxaci n (Levaquin) 250 mg tablet Discont inued 250 MG PO Daily April 07, 2018 12:00a m [facility]2017 1:22p m take until finished for UTI Doxycycline Hyclate 100 mg capsule Discont inued 100 MG PO Twice daily 20 [facility] r 2020 12:00a m December 02, 2023 2:42p m Doxycycline Hyclate 100 mg capsule Discont inued 100 MG PO Twice daily 20 [facility] r 2020 12:00a m December 02, 2023 2:42p m Naproxen Sodium (Anaprox Ds) 550 mg Tablet Discont inued 550 MG PO Twice daily 2017 12:00a m [facility] 2017 1:32p m Lorazepam (Ativan) 0.5 mg Tablet Discont inued 0.5 MG PO As Directed 2017 12:00a m 2017 2:54p m Acetaminoph en (Tylenol Extra Strength) 500 mg Tablet Discont inued 500 MG PO As Directed 2017 12:00a m January 28, 2024 11:16 am Acetaminoph en (Tylenol Extra Strength) 500 mg tablet Active 500 MG PO As Directed January 28, 2024 11:13a m Complies with drug therapy Ondansetron (Zofran Odt) 4 mg Tablet,Disi ntegrating Discont inued 4 MG PO Three times daily as needed for Nausea And Vomiting 10 er 2017 1:00am 2018 4:59p m Oxycodone 5 mg capsule Discont inued 5 MG PO Q6H as needed for pain 4 2 b er 2017 sandhya 2017 1:00a m Novem sandhya 2017 1:02a m Cephalexin (Keflex) 500 mg capsule Discont inued 500 MG PO Twice daily 14 7 b er 2017 1:00am 2017 1:00a m Novem sandhya 2017 1:02a m Oxycodone 5 mg tablet Discont inued 1 TAB PO Daily as needed for Pain 2018 1:00am December 02, 2023 2:43p m Tizanidine 2 mg Tablet Discont inued April 14, 2019 12:00a m December 02, 2023 2:43p m Hydrocodone -Acetaminop hen (Magnolia) 5-325 mg Tablet Discont inued April 14, 2019 12:00a m December 02, 2023 2:42p m Naproxen Sodium (Anaprox Ds) 550 mg Tablet Discont inued 550 MG PO Twice daily April 14, 2019 12:00a m December 02, 2023 2:43p m Zolpidem (Ambien) 5 mg Tablet Discont inued 5 MG PO Daily at bedtime as needed for Insomnia April 14, 2019 12:00a m December 02, 2023 2:43p m Lorazepam (Ativan) 0.5 mg Tablet Discont inued Decemb 2018 1:00am December 02, 2023 2:42p m Ondansetron Hcl 4 mg tablet Discont inued 4 MG PO Twice daily as needed for Nausea December 02, 2023 3:01pm January 01, 2024 11:09 am Ropinirole 0.5 mg tablet Discont inued 0.5 MG PO Twice daily December 02, 2023 12:00a m February 24, 2024 4:35p m Flash Glucose Scanning Mershon (Freestyle Lambert 2 Mershon) misc Discont inued 0 .Route December 02, 2023 12:00a m January 28, 2024 11:19 am As directed Flash Glucose Sensor (Freestyle Lambert 2 Sensor) kit Discont inued 0 .Route December 02, 2023 12:00a m January 28, 2024 11:19 am As directed Ondansetron Hcl 4 mg tablet Discont inued 0 .ROUTE .COMPLEX March 05, 2024 1:59pm Augus t 2023 12:10 pm TAKE 1 TABLET BY MOUTH TWICE DAILY NEEDED Potassium Chloride (Klor-Con M20) 20 mEq tablet,ER particles/c rystals Discont inued 20 MEQ PO Daily March 05, 2024 12:00a m March 09, 2025 3:09p m Nitrofurant oin Monohyd/M-C ryst 100 mg capsule Discont inued 0 .ROUTE .COMPLEX December 07, 2024 1:42pm February 25, 2025 10:07 am TAKE 1 CAPSULE BY MOUTH DAILY WITH FOOD Furosemide 40 mg tablet Discont inued 40 MG PO Daily December 07, 2024 1:55pm March 09, 2025 3:08p m 40 mg orally daily; Nitrofurant oin Monohyd/M-C ryst 100 mg capsule Discont inued 100 MG PO Daily 2023 1:00am Febru irma 2023 3:09p m Nitrofurant oin Monohyd/M-C ryst 100 mg capsule Discont inued 0 .ROUTE .COMPLEX 30 ua 2023 3:10pm February 24, 2024 4:35p m TAKE 1 CAPSULE BY MOUTH DAILY WITH FOOD Acetaminoph en (Tylenol Arthritis Pain) 650 mg tablet extended release Active 650 MG PO Every 12 hours January 28, 2024 12:00a m Complies with drug therapy Cpap (Continuous Positive Airway Pressure) unit Active 0 .Route January 28, 2024 12:00a m As directed [facility] [employer] Melatonin 10 mg tablet Active 10 MG PO Daily at bedtime January 28, 2024 12:00a m Complies with drug therapy Prednisone 10 mg tablet Discont inued 10 MG PO Daily January 28, 2024 12:00a m January 28, 2024 2:49p m 4 tablets daily x 3 days, 2 tablets daily x 3 days, 1 tablet daily x 7 days then stop Fluticasone Propionate 50 mcg/actuati on spray,suspe nsion Discont inued 1 SPRAY INTRAN LILA Daily 10 15January 28, 2024 12:00a m March 09, 2025 3:10p m administer into each nostril Prednisone 10 mg tablet Discont inued 10 MG PO As Directed January 28, 2024 2:40pm Septe [facility] 2023 1:35p m 4 tablets daily x 3 days, 2 tablets daily x 3 days, 1 tablet daily x 7 days then stop Tramadol 50 mg tablet Discont inued 50 MG PO Every 8 hours as needed January 01, 2024 12:00a m January 01, 2024 11:09 am Methocarbam ol 500 mg tablet Discont inued 500 MG PO Daily at bedtime January 01, 2024 12:00a m [facility] 2023 2:40p m Tramadol 50 mg tablet Discont inued 50 MG PO Twice daily as needed for pain 14 7 January 01, 2024 11:00a m [facility] 2023 2:53p m Ondansetron Hcl 4 mg tablet Discont inued 4 MG PO Twice daily as needed for Nausea January 01, 2024 11:02a m January 27, 2024 8:58a m Ondansetron Hcl 4 mg tablet Discont inued 0 .ROUTE .COMPLEX 60 [facility] 2023 2:35pm March 29, 2025 10:51 am TAKE 1 TABLET BY MOUTH THREE TIMES DAILY NEEDED *MUST LAST 30 DAYS* Ropinirole 0.5 mg tablet Discont inued 0 .ROUTE .[facility] 60 [facility] 2023 2:35pm February 25, 2025 10:07 am TAKE 1 TABLET BY MOUTH TWICE DAILY Nitrofurant oin Monohyd/M-C ryst 100 mg capsule Discont inued 0 .ROUTE .COMPLEX 30 [facility] 2023 2:36pm December 07, 2024 1:30p m TAKE 1 CAPSULE BY MOUTH DAILY WITH FOOD Tramadol 50 mg tablet Discont inued 50 MG PO Twice daily as needed for pain 14 7 [facility] 2023 2:40pm December 07, 2024 1:09p m Baldomero (Ultra-Ligh t Rollator) [facility] Active 0 .Route 1 [facility] 2023 1:00am As directed Nitrofurant oin Monohyd/M-C ryst 100 mg capsule Discont inued 0 .ROUTE .[facility] March 09, 2025 3:08pm Septe [facility] 2024 4:34p m TAKE 1 CAPSULE BY MOUTH DAILY WITH FOOD Immunizations Immunization Event Date Not Given Reason Dose Number Electromagnet Crane Operator Lot Number Vaccine Information Statement (VIS) Detail Administration Location COVID-19 mRNA-1273 (Moderna) October 24, 2020 COVID-19 mRNA-1273 (Moderna) November 22, 2020 COVID-19 mRNA-1273 (Moderna) August 29, 2021 Quadrivalent Influenza (mdv) June 26, 2012 Quadrivalent Influenza (mdv) July 05, 2014 Fluzone TIV High-Dose 65YR+ June 08, 2024 [id number] A [facility] influenza, unspecified formulation July 08, 2020 influenza, unspecified formulation August 03, 2021 influenza, unspecified formulation July 19, 2022 Pneumococcal Conjugate Vaccine, 13 valent January 29, 2017 Pneumococcal Polysacc. Vaccine, 23 valent May 26, 2019 Quadrivalent Influenza July 03, 2016 Quadrivalent Influenza August 06, 2017 Vital Signs Vital Reading Result Reference Range Collection Date/Time Height 56 [in_i] June 08, 2025 2:21pm Weight 83.00 kg June 08, 2025 2:21pm Heart Rate 66 /min 60-100 June 08, 2025 2:21pm BP Systolic 114 mm[Hg] 100-140 June 08, 2025 2:21pm BP Diastolic 66 mm[Hg] 60-100 June 08, 2025 2:21pm BMI (Body Mass Index) 41.0 kg/m2 2024 2:21pm Advance Directives Advance Directive Response Recorded Date/ Time Advance Directives Yes March 06 11:08am Insurance Providers Guarantor Dottie Bates Address [address] [place] [phone] Contact Info. Home Phone: Payer Policy Id Subscriber's Name Subscriber Id Effectiv e Date Expiration Date Medicare [id number] Dottie Bates [id number] [facility] Health Claims [id number] Dottie Bates [id number] Encounters Encounter Location(s) Arrival/Admit Date Discharge/Depart Date Provider(s) Departed Physician/Prov ider Office Visit -[facility] June 08, 2025 2:11pm June 08, 2025 2:59pm Fatoumata Chase MD Recent Diagnosis Onset Date Admit Date HTN (hypertension) Unknown May 2:11pm Assessments Diagnosis Onset Date Resolution Status Admit Date HTN (hypertension) acute 2024 2:11pm Plan of Treatment Future Tests Future scheduled test information is unavailable Pending Tests Test Name Ordered Date Scheduled Date ECG 12 lead ECG June 08, 2025 2:52pm Future Visits Future appointment information is unavailable Referrals to Other Providers Referral information is unavailable Future Procedures Future procedure information is unavailable Future Medications Future medication information is unavailable Patient Instructions Patient instructions are unavailable
--- NOTE | 2025-06-09 07:37 | ECG_ITS ---
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
--- OUTSIDE RECORDS SUMMARY | 2025-06-09 07:57 | XMS_ITS | Clinical Summary ---
Author Organization [facility] Address [address] [place] [address] Phone Care Team Providers Care Nursing Education Consultant Name Role Phone Unavailable Primary Care Provider Unavailabl e Social History Tobacco Use Types Packs/Day Years Used Date Smoking Tobacco: Never Assessed Comments Unknown Sex and Gender Information Value Date Recorded Sex Assigned at Not on file Legal Sex Female 7:03 AM EST Gender Identity Not on file Sexual Orientation Not on file Plan of Treatment Health Maintenance Due Date Last Done Comments Lipid Panel 1935 Yearly Adult Physical 1935 DTaP/Tdap/Td Vaccines (1 - Tdap) 1959 Pneumococcal Vaccine (1 of 1 - PCV) 1987 Zoster Vaccines (1 of 2) 1987 Bone Density Scan 2002 RSV High Risk: (Elderly (60+ ) or Population) (1 - 1-dose 75+ series) 2012 COVID-19 Vaccine (1 - 2023-2 5 season) 2025 Influenza Vaccine (#1) 2025 HIB Vaccines Aged Out No longer eligi ble based on patient's age to complete this topic HPV Vaccines Aged Out No longer eligi ble based on patient's age to complete this topic Hepatitis A Vaccines Aged Out No long er eligible based on patient's age to complete this topic Hepatitis B Vaccines Aged Out No long er eligible based on patient's age to complete this topic IPV Vaccines Aged Out No longer eligi ble based on patient's age to complete this topic Meningococcal Vaccine Aged Out No saud vinh eligible based on patient's age to complete this topic Rotavirus Vaccines Aged Out No longer eligible based on patient's age to complete this topic
--- OUTSIDE RECORDS SUMMARY | 2025-06-09 07:57 | XMS_ITS | Encounter Summary ---
Author Organization [facility] Address [address] [place] [address] Care Team Providers Care Inventory Analyst Name Role Phone Fatoumata Chase MD Primary Care Provider [phone] Encounter Details Date Type Department Care Team (Latest Contact Info) Description 02/09/2025 Results Follow-Up [facility] [address] [place] [address] Callie Reid MD [address] [place] [address] Dermatopathology exam Social History Tobacco Use Types Packs/Day Years Used Date Smoking Tobacco: Never Smokeless Tobacco: Never Alcohol Use Standard Drinks/Week Comments Defer 0 (1 standard drink = 0.6 oz pur e alcohol) Comments Unknown Sex and Gender Information Value Date Recorded Sex Assigned at Not on file Legal Sex Female 6:47 PM EDT Gender Identity Not on file Sexual Orientation Not on file documented as of this encounter Plan of Treatment Upcoming Encounters Date Type Department Care Team (Late st Contact Info) Description 06/14/2025 2:00 PM EDT Office Visit [facility] [address] [place] [id number] Stephon Kincaid DPM [address] [place], [place] [id number] 08/10/2025 10:15 AM EST Procedure Visit [facility] [address] [place] [address] Argenis Miranda DPM [address] [place] [address] documented as of this encounter Visit Diagnoses Not on filedocumented in this encounter Care Teams Inventory Analyst Relationship Specialty Start Date End Date Fatoumata Chase MD [address] [place] [phone] PCP - General Family Medicine 01/18/25 documented as of this encounter
--- OUTSIDE RECORDS SUMMARY | 2025-06-09 07:57 | XMS_ITS | Clinical Summary ---
Author Organization [facility] Address [address] [place] [address] Care Team Providers Care Estate Manager Name Role Phone Fatoumata Chase MD Primary Care Provider Allergies Active Allergy Reactions Criticality Noted Date Comments Clarithromycin Unknown 02/02/2025 Naproxen Unknown 03/05/2023 Medications oxybutynin (Ditropan) 5 MG tablet Take 5 mg by mouth in the morning. 3 Active metFORMIN (Glucophage) 500 MG tablet TAKE 1 TABLET BY MOUTH WITH A MEAL TWICE DAILY 3 Active gabapentin (Neurontin) 300 MG capsule Take 600 mg by mouth in the morning. 3 Active furosemide (Lasix) 40 MG tablet TAKE 1 & 1/2 (ONE AND ONE-HALF) TABLETS BY MOUTH DAILY 3 Active potassium chloride CR (K-Tab) 20 MEQ ER tablet Take 20 mEq by mouth in the morning. Take with food. . 3 Active ondansetron (Zofran) 4 MG tablet Take 4 mg by mouth 2 (two) times a day as needed. 3 Active rOPINIRole (Requip) 0.5 MG tablet TAKE 1 TABLET BY MOUTH 1-3 HOURS BEFORE bedtime 3 Active omeprazole (PriLOSEC) [address] capsule TAKE 1 CAPSULE BY MOUTH 30 MINUTES before morning meal 3 Active metOLazone (Zaroxolyn) 2.5 MG tablet TAKE 1 TABLET BY MOUTH ONCE DAILY FOR 5 DAYS( GIVE 30 MINS PRIOR TO LASIX) 3 Active estradiol (Estrace) 0.1 MG/GM vaginal cream INSERT 1 (ONE) gram VAGINALLY twice a week 3 Active ciprofloxacin (Cipro) 500 MG tablet Take 500 mg by mouth every 12 (twelve) hours. 3 Active clotrimazole (Mycelex) 10 MG black TAKE 1 (ONE) black five times a day 3 Active cephalexin (Keflex) 500 MG capsule Take 500 mg by mouth in the morning. 3 Active benzonatate (Tessalon) 100 MG capsule TAKE 1 CAPSULE BY MOUTH THREE TIMES DAILY NEEDED 2 Active traMADol (Ultram) 50 MG tablet Take 50 mg by mouth in the morning and 50 mg before bedtime. 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, without long-term current use of insulin (HCC); Lymphedema; Hammer toes of both feet 05/04/2025 Bamboo flowsheet [facility] [address] [place] [address] Argenis Miranda DPM 05/04/2025 Travel from Last 3 Months Family History Medical History Relation Name Comments Cancer Father Cancer Maternal Grandmother Stomach cancer Mother Relation Name Status Comments Father Maternal Grandmother Mother Social History Tobacco Use Types Packs/Day Years Used Date Smoking Tobacco: Never Smokeless Tobacco: Never Tobacco Cessation:Counseling Given: Not Answered Alcohol Use Standard Drinks/Week Comments Defer 0 (1 standard drink = 0.6 oz pur e alcohol) Comments Unknown Sex and Gender Information Value Date Recorded Sex Assigned at Not on file Legal Sex Female 6:47 PM EDT Gender Identity Not on file Sexual Orientation Not on file Last Filed Vital Signs Vital Sign Reading Time Taken Comments Blood Pressure 127/66 03/13/2021 12:00 PM EDT Pulse - - Temperature - - Respiratory Rate - - Oxygen Saturation - - Inhaled Oxygen Concentration - - Weight 73.9 kg (163 lb) 03/13/2021 12:00 PM EDT Height 152.4 cm (5') 01/03/2023 12:00 PM EDT Body Mass Index 31.83 03/13/2021 12:00 PM EDT Plan of Treatment Upcoming Encounters Date Type Department Care Team (Late st Contact Info) Description 06/14/2025 2:00 PM EDT Office Visit [facility] [address] [place] [phone] Stephon Kincaid DPM [address] [place], [place] [phone] 08/10/2025 10:15 AM EST Procedure Visit [facility] [address] [place] [phone] Argenis Miranda DPM [address] [place] [address] Insurance MEDICARE [facility] Care Teams Estate Manager Relationship Specialty Start Date End Date Fatoumata Chase MD [address] [place] [address] PCP - General Family Medicine 01/18/25
--- OUTSIDE RECORDS SUMMARY | 2025-06-09 08:03 | XMS_ITS | CCD ---
Author Organization 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 Name Role Phone Brendon Castelan Unavailable [place] Unavailable Bobby Ramesh Unavailable MD Brendon Castelan Primary Care Provider [phone] MD Brendon Castelan Attending Provider Staci Asencio Unavailable MD Brendon Castelan Primary Care Provider [phone] GREG Asencio Attending Provider [phone] MD Brendon Castelan Attending Provider DR CHON LYNCH Admitting Unavailable HERI .DR PAULINO Consulting Unavailable SYED, DR CHON Henry Attending Unavailable [facility] [place], DR HEALY Primary Care Unavailable MADIE, DR BOBBY Benavidez Consulting Unavailable SYED, DR CHON Henry Consulting Unavailable NEMO DUBOIS Consulting Unavailable GISELLE, DR HEALY Primary Care Unavailable DR LORA BLACKBURN Admitting Unavailable HERI ., DR PAULINO Attending Unavailable HERI .DR PAULINO Consulting Unavailable STEFANI .DR ANNIE Consulting Unavailable MADIE, DR BOBBY Benavidez Consulting Unavailable RONDA .PRISCILLA Consulting Unavailable CHANTAL Mendoza, NEMO Consulting Unavailable GISELLE, DR HEALY Primary Care Unavailable SHAIKH Cris SHAW Admitting Unavailable DR MARQUIS MIRANDA Consulting Unavailable SHAIKH Cris SHAW Attending Unavailable SHAIKH Cris SHAW Consulting Unavailable BOBBY JUAREZ Consulting Unavailable ISHA ELDRIDGE Consulting Unavailable SURAJ KUNZ Consulting Unavailable GISELLE, DR HEALY Primary Care Unavailable DAVIE DEE Consulting Unavailable VALERIA, LEDEZMA H Admitting Unavailable SHAIKH SHAW H Attending Unavailable SHAIKH Cris SHAW Consulting Unavailable MARCO LEROY Consulting Unavailable Fatoumata Chase Unavailable MD Brendon Castelan Primary Care Provider MD Brendon Castelan Attending Provider GRGE Asencio Attending Provider Brendon Castelan Admitting Unavailable Brendon Castelan Primary Care Unavailable Brendon Castelan Attending Unavailable Brendon Castelan Admitting Unavailable Brendon Castelan Primary Care Unavailable Brendon Castelan Attending Unavailable Elif, Staci Admitting Unavailable Elif, Staci Attending Unavailable Brendon Castelan Primary Care Unavailable Brendon Castelan Admitting Unavailable Brendon Castelan Primary Care Unavailable Brendon Castelan Attending Unavailable Brendon Castelan Primary Care Unavailable Brendon Castelan Attending Unavailable Brendon Castelan Admitting Unavailable Elif, Staci Admitting Unavailable Annelise, Brendon Primary Care Unavailable Elif, Staci Attending Unavailable Brendon Castelan Primary Care Unavailable Klein, Ingrid Admitting Unavailable Klein, Ingrid Attending Unavailable Morena Vera Unavailable Fatoumata Chase MD Primary Care Provider Fatoumata Chase MD Primary Care Provider Fatoumata Chase MD Primary Care Provider [phone] JIMMY MIRANDA Attending Unavailable JIMMY MIRANDA Attending Unavailable ZULEMA JIN Attending Unavailable JIMMY MIRANDA Attending Unavailable Allergies Allergy Classification Reported Allergen(s) Allergy Type Date of Onset Reaction(s) Facility (20 sources) Acetaminophen / dichloralphenazone / isometheptene; Translations: [MIDRIN] Drug Allergy 10-18-19 13 Unknown [facility] Repository (20 sources) Acetaminophen / oxyCODONE Drug Allergy Unknown [place] Other (20 sources) Clarithromycin Drug Allergy 09-29-19 19 Unknown, Unknown Reaction [facility] [place] (20 sources) Esomeprazole Drug Allergy 09-29-19 19 stomach upset [facility] (20 sources) Naproxen Drug Allergy 09-29-19 19 Unknown [facility] (8 sources) Acetaminophen; Translations: [acetaminophen] Drug Allergy 09-29-19 19 Unknown Reaction [facility] (12 sources) dichloralphenazone; Translations: [dichloralphenazone] Drug Allergy 09-29-19 19 Unknown Reaction [facility] (12 sources) isometheptene; Translations: [isometheptene] Drug Allergy 09-29-19 19 Unknown Reaction [facility] (12 sources) oxyCODONE; Translations: [oxycodone] Drug Allergy 04-14-20 19 Unknown Reaction [facility] (20 sources) Acetaminophen / dichloralphenazone / isometheptene Drug Allergy 11-28-19 24 Unknown, Hives [facility] (1 source) Clarithromycin Drug Allergy 10-05-19 13 [facility] Rep[facility] (1 source) Naproxen Drug Allergy 02-14-20 22 [facility] (1 source) Clarithromycin Drug Allergy 09-29-19 19 [facility] Repository (1 source) Esomeprazole Drug Allergy 09-29-19 19 [facility] Repository (1 source) Naproxen Drug Allergy 09-29-19 [facility] Repository (4 sources) Clarithromycin Allergy to substance 02-03-20 25 Unknown [facility] Medications Current Medications Medication Drug Class(es) Dates Sig (Normalized) Sig (Original) 8 hr acetaminophen 650 mg extended release oral tablet (20 sources) Start: 01-28-2024 take 1 tablet by mouth every twelve hours Acetaminophen (Tylenol Arthritis Pain) 650 mg tablet extended release Active 650 MG PO Every 12 hours January 28, 2024 12:00am Start: 06-12-2018 End: 01-28-2024 Acetaminophen (Tylenol Extra Strength) 500 mg tablet Active 500 MG PO As Directed January 28, 2024 11:13am take 1 tablet by eneida th every [...] every 6 hrs for 30 days Active benzonatate 100 mg oral capsule (20 sources) Non-narcotic Antitussive Start : 06-28 take 1 capsule by mouth three times daily as needed benzonatate (Tessalon) 100 MG capsule TAKE 1 CAPSULE BY MOUTH THREE TIMES DAILY NEEDED 06/28/2022 Active cephalexin 500 mg oral capsule (20 sources) Cephalosporin Antibacterial Start : 02-25 take 1 capsule by mouth in the morning cephalexin (Keflex) 500 MG capsule Take 500 mg by mouth in the morning. 02/25/2023 Active Start: 07-21-2018 End: 07-28-2018 take 1 capsule by mouth twice daily Cephalexin (Keflex) 500 mg capsule Discontinued 500 MG PO Twice daily 14 July 21, 2018 1:00am July 27, 2018 1:00am July 28, 2018 1:02am ciprofloxacin 500 mg oral tablet (20 sources) Quinolone Antimicrobial Start: 01-08-2023 take 1 tablet by mouth every twelve hours ciprofloxacin (Cipro) 500 MG tablet Take 500 mg by mouth every 12 (twelve) hours. 01/08/2023 Active Start: 01-08-2023 take 1 tablet by eneida th every twelve hours Cipro 500 MG 1 tablet Orally every 12 hrs for 5 days Dec, Not-Taking Start: 02-20-2021 take 1 tablet by eneida th every twelve hours clotrimazole 10 mg oral lozenge (10 sources) Azole Antifungal Start: 01-08-2023 clotrimazole (Mycelex) 10 MG black TAKE 1 (ONE) black five times a day 01/08/2023 Active Cpap (Continuous Positive Airway Pressure) (2 sources) Start: 01-28-2024 Cpap (Continuo us Positive Airway Pressure) Active 0 .Route January 28, 2024 12:00am As directed [facility] [place] Cpap (Continuous Positive Airway Pressure) unit (1 source) Start: 01-28-2024 Cpap (Continuo us Positive Airway Pressure) unit Active 0 .Route January 28, 2024 12:00am As directed [facility] [place] diclofenac sodium 0.01 mg/mg topical gel (6 sources) Nonsteroidal Anti-inflammatory Drug Start: 05-25-2020 Start: 05-25-2020 Diclofenac Sod ium 1 % as directed Transdermal Twice a day May, Active estradiol 0.1 mg/ml vaginal cream (20 sources) Estrogen Start: 06-12-2023 estradiol (Est race) 0.1 MG/GM vaginal cream INSERT 1 (ONE) gram VAGINALLY twice a week 02/25/2023 Active Start: 02-25-2023 Estrace 0.1 MG /GM 1 gm Vaginal twice a week for 30 days Feb, Active Start: 02-25-2023 fluticasone propionate 0.05 mg/actuat metered dose nasal spray (3 sources) Corticosteroid Start: 01-28-2024 take 1 spray(s) nasal route once daily Fluticasone Propionate 50 mcg/actuation spray,suspension Active 1 SPRAY INTRANASAL Daily 10 15January 28, 2024 12:00am administer into each nostril furosemide 40 mg oral tablet (20 sources) Loop Diuretic Start: 05-26-2024 take 1 tablet by mouth once daily Furosemide 40 mg tablet Active 0 .ROUTE .COMPLEX 135 May 26, 2024 8:46am TAKE 1 & 1/2 (ONE AND ONE-HALF) TABLETS BY MOUTH DAILY Start: 05-26-2024 End: 05-26-2024 Furosemide 40 mg tablet Disc ontinued 60 MG PO Every morning May 26, 2024 12:00am May 26, 2024 8:46am Start: 05-26-2024 End: 05-26-2024 take 60 mg by mouth once daily in the morning Furosemide Discontinued 60 MG PO Every morning May 26, 2024 12:00am May 26, 2024 8:46am Start: 12-29-2020 take 1 tablet by eneida th once daily furosemide (Lasix) 40 MG tablet TAKE 1 & 1/2 (ONE AND ONE-HALF) TABLETS BY MOUTH DAILY 12/20/2022 Active Start: 12-29-2020 take 0.5 tablet by m outh every other day Furosemide 40 MG 1/2 tablet Orally QOD Dec, Not-Taking Furosemide 40 MG 1.5 Orally Once a day for 90 days Active gabapentin 300 mg oral capsule (20 sources) Anti-epileptic Agent Start: 04-05-2018 End: 12-02-2023 take 2 capsules by mouth in the morning gabapentin (Neurontin) 300 MG capsule Take 600 mg by mouth in the morning. 01/22/2023 Active Start: 04-05-2018 End: 12-02-2023 take 600 mg by mouth once daily Gabapentin Discontinued 600 MG PO Daily April 05, 2018 12:00am December 02, 2023 2:42pm melatonin 10 mg oral tablet (3 sources) Start: 01-28-2024 take 1 tablet by mouth once daily at bedtime Melatonin 10 mg tablet Active 10 MG PO Daily at bedtime January 28, 2024 12:00am metFORMIN hydrochloride 500 mg oral tablet (20 sources) Biguanide Start: 04-05-2018 End: 12-02-2023 take 1 tablet by mouth twice daily metFORMIN (Glucophage) 500 MG tablet TAKE 1 TABLET BY MOUTH WITH A MEAL TWICE DAILY 01/17/2023 Active take 1 tablet by [facility] every twenty-four hours metFORMIN HCl 500 MG 1 tablet with a meal Orally Once a day for 30 day(s) Active metOLazone 2.5 mg oral tablet (10 sources) Thiazide-like Diuretic Start: 10-28-2022 metOLazone (Zaroxolyn) 2.5 MG tablet TAKE 1 TABLET BY MOUTH ONCE DAILY FOR 5 DAYS( GIVE 30 MINS PRIOR TO LASIX) 10/28/2022 Active nitrofurantoin, macrocrystals 25 mg / nitrofurantoin, monohydrate 75 mg oral capsule (20 sources) Nitrofuran Antibacterial Start: 11-07-2023 End: 12-07-2024 take 1 capsule by mouth once daily at mealtime Nitrofurantoin Monohyd/M-Cryst 100 mg capsule Active 0 .ROUTE .COMPLEX December 07, 2024 1:42pm TAKE 1 CAPSULE BY MOUTH DAILY WITH FOOD Start: 11-07-2023 End: 11-07-2023 take 1 capsule by mouth once daily Nitrofurantoin Monohyd/M-Cryst 100 mg capsule Discontinued 100 MG PO Daily November 07, 2023 1:00am November 07, 2023 3:09pm take 1 capsule by [facility] every twenty-four hours Nitrofurantoin Monohyd Macro 100 MG 1 capsule with food Orally daily for 30 days Active nystatin [id number] unt/ml topical cream (1 source) Polyene Antifungal Nystatin 1000 00 UNIT/GM 1 application Externally Twice a day for 10 days Active omeprazole 20 mg delayed release oral capsule (20 sources) Proton Pump Inhibitor Start: 01-03-2023 omeprazole (PriLOSEC) [address] capsule TAKE 1 CAPSULE BY MOUTH 30 MINUTES before morning meal 01/03/2023 Active Start: 04-05-2018 End: 01-28-2024 take 1 capsule by mouth twice daily Omeprazole 20 mg capsule,delayed release(DR/EC) Discontinued 20 MG PO Twice daily April 05, 2018 12:00am January 28, 2024 11:15am ondansetron 4 mg oral tablet (20 sources) Serotonin-3 Receptor Antagonist Start: 08-11-2024 End: 09-07-2024 take 1 tablet by mouth three times daily as needed Ondansetron Hcl 4 mg tablet Active 0 .ROUTE .COMPLEX September 07, 2024 2:35pm TAKE 1 TABLET BY MOUTH THREE TIMES DAILY NEEDED *MUST LAST 30 DAYS* Start: 01-27-2024 End: 08-11-2024 take 1 tablet by mouth twice daily as needed Ondansetron Hcl 4 mg tablet Discontinued 0 .ROUTE .COMPLEX March 05, 2024 1:59pm May 04, 2024 12:10pm TAKE 1 TABLET BY MOUTH TWICE DAILY NEEDED Start: 07-21-2018 End: 09-29-2018 take 1 tablet by mouth three times daily as needed for nausea and vomiting Ondansetron (Zofran Odt) 4 mg Tablet,Disintegrating Discontinued 4 MG PO Three times daily as needed for Nausea And Vomiting July 21, 2018 1:00am September 29, 2018 4:59pm Start: 04-05-2018 End: 01-27-2024 take 1 tablet by mouth twice daily as needed ondansetron (Zofran) 4 MG tablet Take 4 mg by mouth 2 (two) times a day as needed. 02/25/2023 Active take 1 tablet by eneida three times daily as needed Ondansetron HCl 4 MG 1 tablet Orally tid prn for 30 days Active One Touch Glucometer (14 sources) Start: 04-03-2023 One Touch Glucometer to check BS twice daily for 365 days [facility], Active oxybutynin chloride 5 mg oral tablet (20 sources) Cholinergic Muscarinic Antagonist Start: 04-05-2018 End: 03-05-2024 take 1 tablet by mouth in the morning oxybutynin (Ditropan) 5 MG tablet Take 5 mg by mouth in the morning. 01/22/2023 Active microencapsulated potassium chloride 20 meq extended release oral tablet (20 sources) Start: 03-05-2024 Potassium Chlo ride (Klor-Con M20) 20 mEq tablet,ER particles/crystals Active 20 MEQ PO Daily 90 March 05, 2024 12:00am Start: 01-22-2023 take 1 tablet by eneida th every twenty-four hours Klor-Con M20 20 MEQ 1 tablet with food Orally Once a day for 30 days January, Active Start: 12-20-2022 take 1 tablet by mouth at meal time potassium chloride CR (K- Tab) 20 MEQ ER tablet Take 20 mEq by mouth in the morning. Take with food. . 12/20/2022 Active Rollator (20 sources) Start: 08-05-2019 Start: 08-05-2019 Rollator 20 No 2018 Active rOPINIRole 0.5 mg oral tablet (20 sources) Nonergot Dopamine Agonist Start: 02-24-2024 End: 09-07-2024 take 1 tablet by mouth twice daily Ropinirole 0.5 mg tablet Active 0 .ROUTE .COMPLEX 60 September 07, 2024 2:35pm TAKE 1 TABLET BY MOUTH TWICE DAILY Start: 12-27-2022 End: 02-24-2024 take 1 tablet by mouth at bedtime rOPINIRole (Requip) 0.5 MG tablet TAKE 1 TABLET BY MOUTH 1-3 HOURS BEFORE bedtime 12/27/2022 Active take 1 tablet by eneida th at bedtime rOPINIRole HCl 0.5 mg TAKE 1 TABLET BY MOUTH 1-3 HOURS BEFORE bedtime for 90 Active SITagliptin 100 mg oral tablet (4 sources) Dipeptidyl Peptidase 4 Inhibitor take 1 tablet by mouth every twenty-four hours Januvia 100 MG 1 tablet Orally Once a day for 28 days Active traMADol hydrochloride 50 mg oral tablet (20 sources) Opioid Agonist Start: End: take 1 tablet by mouth in the morning traMADol (Ultram) 50 MG tablet Take 50 mg by mouth in the morning and 50 mg before bedtime. 01/01/2024 Active Start: 01-01-2024 End: 01-01-2024 take 1 tablet by mouth every eight hours as needed Tramadol 50 mg tablet Discontinued 50 MG PO Every 8 hours as needed January 01, 2024 12:00am January 01, 2024 11:09am Start: 04-07-2018 End: 06-12-2018 take 0.5-1 tablets by mouth every six hours as needed for pain Tramadol (Ultram) 50 mg tablet Discontinued 50 MG PO Q6H as needed for pain 45 7 April 07, 2018 12:00am June 12, 2018 1:22pm 1/2 - 1 tab po q 6 hours prn pain Walker (Ultra-Light Rollator ) misc (1 source) Start: 09-07-2024 Walker (Ultra- Light Rollator) misc Active 0 .Route 1 September 07, 2024 1:00am As directed Completed/Discontinued Medications Medication Drug Class(es) Dates Sig (Normalized) Sig (Original) acetaminophen 325 mg / HYDROcodone bitartrate 5 mg oral tablet (20 sources) Opioid Agonist Start: 12-26-2020 take 1 tablet by mouth twice daily as needed HYDROcodone-Aceta minophen 5-325 MG 1 tablet as needed Orally twice daily for 30 days G89.29 Chronic pain Dec, Not-Taking Start: 04-14-2019 End: 12-02-2023 Hydrocodone-Acetaminophen (N orco) 5-325 mg Tablet Discontinued TABLET April 14, 2019 12:00am December 02, 2023 2:42pm doxycycline hyclate 100 mg oral capsule (20 sources) Tetracycline-class Drug Start: 07-07-2021 End: 12-02-2023 take 1 capsule by mouth twice daily Doxycycline Hyclate 100 mg capsule Discontinued 100 MG PO Twice daily 20 July 07, 2021 12:00am December 02, 2023 2:42pm Flash Glucose Scanning Flushing (Freestyle Lambert 2 Flushing) misc (4 sources) Start: 12-02-2023 End: 01-28-2024 Flash Glucose Scanning Flushing (Freestyle Lambert 2 Flushing) misc Discontinued 0 .Route 1 December 02, 2023 12:00am January 28, 2024 11:19am As directed Start: 12-02-2023 Flash Glucose Scanning Flushing (Freestyle Lambert 2 Flushing) misc Active 0 .Route 1 December 02, 2023 12:00am As directed Flash Glucose Sensor (Freest yle Lambert 2 Sensor) kit (4 sources) Start: 12-02-2023 End: 01-28-2024 Flash Glucose Sensor (Freest yle Lambert 2 Sensor) kit Discontinued 0 .Route 1 December 02, 2023 12:00am January 28, 2024 11:19am As directed Start: 12-02-2023 Flash Glucose Sensor (Freestyle Lambert 2 Sensor) kit Active 0 .Route 1 December 02, 2023 12:00am As directed Ketorolac (20 sources) Nonsteroidal Anti-inflammatory Drug, Cyclooxygenase Inhibitor Start: 10-10-2017 Toradol per 15 mg Sep, 30 uL levoFLOXacin 250 mg oral tablet (11 sources) Quinolone Antimicrobial Start: 04-07-2018 End: 06-12-2018 take 1 tablet by mouth once daily for urinary tract infection Levofloxacin (Levaquin) 250 mg tablet Discontinued 250 MG PO Daily April 07, 2018 12:00am June 12, 2018 1:22pm take until finished for UTI LORazepam 0.5 mg oral tablet (20 sources) Benzodiazepine Start: 09-02-2019 End: 12-02-2023 Lorazepam (Ativan) 0.5 mg Tablet Discontinued TABLET September 02, 2019 1:00am December 02, 2023 2:42pm Start: 06-12-2018 End: 07-21-2018 Lorazepam (Ativan) 0.5 mg Ta blet Discontinued 0.5 MG PO As Directed June 12, 2018 12:00am July 21, 2018 2:54pm Start: 04-05-2018 End: 04-06-2018 take 1 tablet by mouth once daily Lorazepam 0.5 mg tablet Discontinued 0.5 MG PO Daily April 05, 2018 12:00am April 06, 2018 1:36am losartan potassium 25 mg oral tablet (20 sources) Angiotensin 2 Receptor Salma Start: 08-28-2010 End: 12-02-2023 take 1 tablet by mouth once daily Losartan 25 mg tablet Discontinued 25 MG PO Daily April 05, 2018 12:00am December 02, 2023 2:43pm methocarbamol 500 mg oral tablet (13 sources) Muscle Relaxant Start: 01-01-2024 End: 09-07-2024 take 1 tablet by mouth once daily at bedtime Methocarbamol 500 mg tablet Discontinued 500 MG PO Daily at bedtime January 01, 2024 12:00am September 07, 2024 2:40pm take 1 tablet by mouth every six hours Methocarbamol 750 MG 1 tablet Orally every 6 hrs Not-Taking naproxen sodium 550 mg oral tablet (20 sources) Nonsteroidal Anti-inflammatory Drug Start: 04-14-2019 End: 12-02-2023 take 1 tablet by mouth twice daily Naproxen Sodium (Anaprox Ds) 550 mg Tablet Discontinued 550 MG PO Twice daily April 14, 2019 12:00am December 02, 2023 2:43pm Start: 06-12-2018 End: 06-12-2018 take 1 tablet by mouth twice daily Naproxen Sodium (Anaprox Ds) 550 mg Tablet Discontinued 550 MG PO Twice daily June 12, 2018 12:00am June 12, 2018 1:32pm oxyCODONE hydrochloride 5 mg oral tablet (20 sources) Opioid Agonist Start: 09-29-2018 End: 12-02-2023 take 1 tablet by mouth once daily as needed for pain Oxycodone 5 mg tablet Discontinued 1 TAB PO Daily as needed for Pain September 29, 2018 1:00am December 02, 2023 2:43pm Start: 07-21-2018 End: 07-23-2018 take 1 capsule by mouth every six hours as needed for pain Oxycodone 5 mg capsule Discontinued 5 MG PO Q6H as needed for pain 4 2 July 21, 2018 July 22, 2018 1:00am July 23, 2018 1:02am predniSONE 10 mg oral tablet (10 sources) Start: 01-28-2024 End: 06-08-2024 Prednisone 10 mg tablet Discontinued 10 MG PO As Directed January 28, 2024 2:40pm June 08, 2024 1:35pm 4 tablets daily x 3 days, 2 tablets daily x 3 days, 1 tablet daily x 7 days then stop Start: 07-18-2022 predniSONE 10 MG 4 tabs x 7 days, 3 tabs x 7 days, 2 tabs x 7 days, 1 tab x 7 days then stop Orally Once a day Jul, Active tiZANidine 2 mg oral tablet (16 sources) Central alpha-2 Adrenergic Agonist Start: 04-14-2019 End: 12-02-2023 Tizanidine 2 mg Tablet Discontinued TABLET April 14, 2019 12:00am December 02, 2023 2:43pm vibegron 75 MG Oral Tablet [Gemtesa] (19 sources) take 1 tablet by mouth every twenty-four hours Gemtesa 75 MG 1 tablet Orally Once a day Not-Taking take 1 tablet by eneida th every twenty-four hours Gemtesa 75 MG 1 tablet Orally Once a day Active zolpidem tartrate 5 mg oral tablet (11 sources) gamma-Aminobutyric Acid-ergic Agonist Start: 04-14-2019 End: 12-02-2023 take 1 tablet by mouth once daily at bedtime as needed Zolpidem (Ambien) 5 mg Tablet Discontinued 5 MG PO Daily at bedtime as needed for Insomnia April 14, 2019 12:00am December 02, 2023 2:43pm Problems Active Problems Problem Classification Problem Date Documented Date Episodic/Chronic Acquired foot deformities (12 sources) Hammer toe; Translations: [Other hammer toe(s) (acquired), right foot] Onset: 03-05-2023 03-05-2023 Chronic Adjustment disorders (20 sources) Grief finding; Translations: [Adjustment disorder, unspecified] Onset: 01-08-2022 Resolved: 01-08-2022 Chronic Allergic reactions (2 sources) Allergy status to other antibiotic agents status; Translations: [Allergy status to other drugs, medicaments and biological substances status] Onset: 01-30-2023 Episodic Anxiety disorders (20 sources) Anxiety state; Translations: [Anxiety disorder, unspecified] Onset: 05-25-2021 Resolved: 05-25-2021 Chronic Biliary tract disease (11 sources) Acute cholecystitis; Translations: [Acute cholecystitis] 04-05-2018 Episodic Chronic obstructive pulmonary disease and bronchiectasis (20 sources) Bronchiolectasis; Translations: [Bronchiectasis, uncomplicated] Chronic Congestive heart failure; nonhypertensive (2 sources) Congestive heart failure; Translations: [Heart failure, unspecified] 12-07-2024 Chronic Diabetes mellitus with complications (20 sources) Type 2 diabetes mellitus with hyperglycemia; [...] Translations: [Tension-type headache, unspecified, not intractable] Chronic Heart valve disorders (5 sources) Ejection murmur; Translations: [Cardiac murmur, unspecified] 12-02-2023 Episodic Immunizations and screening for infectious disease (4 sources) Contact with and (suspected) exposure to other viral communicable diseases; Translations: [Encounter for immunization] Onset: 07-07-2021 Resolved: 08-03-2021 Episodic Malaise and fatigue (8 sources) Weakness; Translations: [Other fatigue] Onset: 10-17-2022 Episodic Mycoses (16 sources) Candidal stomatitis; Translations: [Candidiasis of skin and nail] Onset: 03-05-2023 Episodic Nausea and vomiting (10 sources) Nausea; Translations: [Nausea] Onset: 05-25-2021 Resolved: 08-03-2021 Episodic Neoplasms of unspecified nature or uncertain behavior (2 sources) Neoplastic disease; Translations: [Neoplasm of unspecified behavior of bone, soft tissue, and skin] 02-02-2025 Episodic Osteoarthritis (20 sources) Osteoarthritis; Translations: [Unspecified osteoarthritis, unspecified site] Chronic Other aftercare (2 sources) Encounter for follow-up examination after completed treatment for conditions other than malignant neoplasm Onset: 01-08-2022 Resolved: 01-08-2022 Episodic Other aftercare (1 source) Other fpc (current) drug therapy; Translations: [OTH [facility] CURRENT DRUG THERAPY] Onset: 01-30-2023 Episodic Other aftercare (1 source) 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 drugs; Translations: [[facility] USE ORAL HYPOGLYCEMIC DX] Onset: 01-30-2023 Episodic Other and ill-defined heart disease (20 sources) Cardiomegaly; Translations: [Cardiomegaly] Chronic Other and ill-defined heart disease (2 sources) Cardiomegaly; Translations: [Cardiomegaly] Onset: 06-08-2022 Chronic Other connective tissue disease (14 sources) Pain in both feet; Translations: [Pain in right foot] Onset: 03-05-2023 05-04-2024 Episodic Other diseases of bladder and urethra (20 sources) Overactive bladder; Translations: [Overactive bladder] Chronic Other diseases of bladder and urethra (1 source) Overactive bladder Onset: 11-30-2021 Resolved: 11-30-2021 Chronic Other diseases of veins and lymphatics (6 sources) Lymphedema; Translations: [Lymphedema, not elsewhere classified] 05-04-2024 Chronic Other disorders of stomach and duodenum (10 sources) Indigestion; Translations: [Functional dyspepsia] Episodic Other disorders of stomach and duodenum (2 sources) Functional dyspepsia Episodic Other endocrine disorders (20 sources) Hypoglycemia; Translations: [Hypoglycemia, unspecified] Chronic Other endocrine disorders (1 source) Hypoglycemia, unspecified Onset: 11-30-2021 Resolved: 11-30-2021 Chronic Other hereditary and degenerative nervous system conditions (20 sources) Restless legs; Translations: [Restless legs syndrome] 12-02-2023 Chronic Other hereditary and degenerative nervous system conditions (9 sources) Restless legs syndrome; Translations: [Restless legs syndrome (RLS)] Onset: 10-17-2022 Chronic Other lower respiratory disease (20 sources) Interstitial lung disease; Translations: [Interstitial pulmonary disease, unspecified] 01-21-2024 Chronic Other lower respiratory disease (13 sources) Interstitial pulmonary disease, unspecified; Translations: [Postinflammatory pulmonary fibrosis] Chronic Other lower respiratory disease (20 sources) Cough; Translations: [Cough] Episodic Other lower respiratory disease (4 sources) Posterior rhinorrhea; Translations: [Upper airway cough syndrome] 01-28-2024 Episodic Other lower respiratory disease (4 sources) Chronic cough; Translations: [Chronic cough] 01-27-2024 Episodic Other lower respiratory disease (3 sources) Pneumonitis; Translations: [Other disorders of lung] 01-21-2024 Episodic Other lower respiratory disease (1 source) Other disorders of lung; Translations: [Pneumonia, organism unspecified] 01-28-2024 Episodic Other nervous system disorders (20 sources) Chronic pain; Translations: [Other chronic pain] Chronic Other nervous system disorders (1 source) Other chronic pain Chronic Other nervous system disorders (1 source) Difficulty in walking, not elsewhere classified; Translations: [DIFFICULTY IN WALKING NEC] Onset: 01-30-2023 Chronic Other nervous system disorders (2 sources) Tremor, unspecified Onset: 01-08-2022 Resolved: 01-08-2022 Episodic Other nervous system disorders (4 sources) Impairment of balance; Translations: [Other abnormalities of gait and mobility] 12-02-2023 Episodic Other nervous system disorders (1 source) Other abnormalities of gait and mobility; Translations: [Other symptoms involving nervous and musculoskeletal systems] 12-02-2023 Episodic Other non-traumatic joint disorders (20 sources) [...] DISORDERS BILIRUBIN METABOLISM] Onset: 03-07-2022 Chronic Other nutritional; endocrine; and metabolic disorders (1 source) Morbid obesity; Translations: [Morbid (severe) obesity due to excess calories] 12-07-2024 Chronic Other nutritional; endocrine; and metabolic disorders (1 source) Morbid (severe) obesity due to excess calories; Translations: [Morbid obesity] 12-07-2024 Chronic Other skin disorders (2 sources) Seborrheic keratosis; Translations: [Other seborrheic keratosis] 02-02-2025 Episodic Other skin disorders (2 sources) Inflamed seborrheic keratosis; Translations: [Inflamed seborrheic keratosis] 02-02-2025 Episodic Other upper respiratory disease (20 sources) Seasonal [...] syndrome; Translations: [Obstructive sleep apnea (adult) (pediatric)] 12-07-2024 Chronic Residual codes; unclassified (2 sources) Obstructive [...] OTH RSP MANF] Onset: 03-07-2022 Episodic Other diseases of veins and lymphatics (1 source) Vascular insufficiency; Translations: [Venous insufficiency (chronic) (peripheral)] 05-04-2024 Episodic Other lower respiratory disease (1 source) [...] Results Test Name Value Interpretation Reference Range Facility No Panel Informationon 02-02 [facility] Type of biopsy: tangential Informed consent: discussed and consent obtained Informed consent comment: The risks and benefits of the biopsy were discussed. Risks include but are not limited to bleeding, infection, scarring, pain, and nerve damage. An opportunity to ask questions prior to the procedure was permitted and all questions were answered. Patient was prepped and draped in usual sterile fashion: area cleansed with alcohol. Anesthesia: the lesion was anesthetized in a standard fashion Anesthetic: 1% lidocaine w/ epinephrine 1-100,000 buffered w/ 8.4% NaHCO3 Instrument used: DermaBlade Hemostasis achieved with: electrodesiccation Outcome: patient tolerated procedure well Outcome comment: The specimen was placed in a prelabeled formalin container to be sent for pathology Post-procedure details: sterile dressing applied and wound care instructions given Post-procedure details comment: Emphasized need to contact clinic for any signs of infection, uncontrollable bleeding, or complications. Dressing type: bandage Additional details: Photo taken yes Amount of lidocaine used: 1.0 cc [facility] Automated epithelial cells c ount in urine sediment (number/area)on 12-25-2023 Epithelial cells Auto (Urine sed) [#/Area] MODERATE #/LPF NONE/RARE [facility] Automated leukocytes count i n urine sediment (number/area)on 12-25-2023 WBC Auto (Urine sed) [#/Area] 20-50 #/HPF 0-2 [facility] Automated urine specific gra vity by refractometryon 12-25-2023 Specific gravity Refractometry automated (U) [Rel density] 1.020 1.005-1.025 [facility] Bilirubin Auto test strip (U ) [Mass/Vol]on 12-25-2023 Bilirubin (U) [Mass/Vol] Negative NEGATIVE [facility] Casts typing in urine sedime nt by light microscopyon 12-25-2023 Casts LM Nom (Urine sed) NONE SEEN #/LPF NONE SEEN [facility] Color Auto (U)on 12-25-2023 Color (U) YELLOW YELLOW [facility] Ketones Auto test strip (U) [Mass/Vol]on 12-25-2023 Ketones (U) [Mass/Vol] Negative NEGATIVE Fi [facility] Mucus LM Ql (Urine sed)on Mucus Ql (Urine sed) NONE SEEN NONE SEEN [facility] Protein Auto test strip (U) [Mass/Vol]on 12-25-2023 Protein (U) [Mass/Vol] Negative NEG/TRACE Fi [facility] Specific gravity Auto test s trip (U) [Rel density]on 12-25-2023 Specific gravity (U) [Rel density] CLEAR CLEAR [facility] Urine bacteria detection by automated methodon 12-25-2023 Bacteria Auto Ql (U) TRACE #/HPF NONE SEEN [facility] Urine glucose measurement by test strip (mass/volume)on 12-25-2023 Glucose Test strip (U) [Mass/Vol] Negative NEGATIVE [facility] Urine hemoglobin detection b y automated test stripon 12-25-2023 Hemoglobin Auto test strip Ql (U) MODERATE NEGATIVE [facility] Urine nitrite detection by a utomated test stripon 12-25-2023 Nitrite Auto test strip Ql (U) Negative NEGATIVE [facility] Urine sediment crystal ident ification by light microscopyon 12-25-2023 Crystals LM Nom (Urine sed) None Seen #/HPF None Seen [facility] Urine sediment leukocyte cou nt by microscopy (number/high power field)on 12-25-2023 WBC LM.HPF (Urine sed) [#/Area] 2-5 #/HPF NONE SEEN [facility] Urobilinogen Auto test strip (U) [Mass/Vol]on 12-25-2023 Urobilinogen Qn (U) 1.0 {Narinder'U}/dL 0.2-1.0 [facility] pH Auto test strip (U)on pH (U) 6.5 [pH] 5.0-9.0 [facility] CBC AUTO DIFFon 01-28-2023 BASO # 0.1 103/ul Normal 0.0-0.1 [facility] Comment on above: Performed By: #### B [id number] #### [facility] [address] [place] [address] Dr. Eliecer Das Basophils/100 WBC (Bld) 1.1 % Normal 0.2-2.0 [facility] Comment on above: Performed By: #### B [id number] #### [facility] [address] [place] [address] Dr. Eliecer Das EO # 0.2 103/ul Normal 0.0-0.7 [facility] Comment on above: Performed By: #### B [id number] #### [facility] [address] [place] [address] Dr. Eliecer Das Eosinophils/100 WBC (Bld) 3.6 % Normal 0.9-7.0 [facility] Comment on above: Performed By: #### B [id number] #### [facility] [address] [place] [address] Dr. Eliecer Das Erythrocyte distribution width (RBC) [Ratio] 18.3 % Critically high 11.0-15.0 [facility] Comment on above: Performed By: #### B [id number] #### [facility] [address] [place] [address] Dr. Eliecer Das Hematocrit (Bld) [Volume fraction] 34.9 % Critically low 36.0-48.0 [facility] Comment on above: Performed By: #### B [id number] #### [facility] [address] [address] [address] Eliecer Das Hemoglobin (Bld) [Mass/Vol] 12.4 g/dL Normal 12.0-16.0 [facility] Comment on above: Performed By: #### B [id number] #### [facility] [address] [place] [address] Dr. Eliecer Das IG # 0.08 10e3/ul Critically high 0.00-0.03 [facility] Comment on above: Performed By: #### B [id number] #### [facility] [address] [place] [address] Dr. Eliecer Das IG % 1.2 % Critically high 0.0-0.5 [facility] Comment on above: Performed By: #### B [id number] #### [facility] [address] [place] [address] Dr. Eliecer Das LYMPH # 1.9 103/ul Normal 1.2-3.8 [facility] Comment on above: Performed By: #### B [id number] #### [facility] [address] [place] [address] Dr. Eliecer Das Lymphocytes/100 WBC (Bld) 29.5 % Normal 20.5-60.0 [facility] Comment on above: Performed By: #### B [id number] #### [facility] [address] [place] [address] Dr. Eliecer Das MANUAL DIFF REQ NO Normal [facility] Comment on above: Performed By: #### B [email or web address] #### [facility] [address] [place] [address] Dr. Eliecer Das MCH (RBC) [Entitic mass] 36.5 pg Critically high 26.7-34.0 [facility] Comment on above: Performed By: #### B [id number] #### [facility] [address] [place] [address] Dr. Eliecer Das MCHC (RBC) [Mass/Vol] 35.5 g/dL Critically high 29.9-35.2 [facility] Comment on above: Performed By: #### B [id number] #### [facility] [address] [place] [address] Dr. Eliecer Das MCV (RBC) [Entitic vol] 102.6 fL Critically high 81.0-99 .0 [facility] Comment on above: Performed By: #### B [id number] #### [facility] [address] [place] [address] Dr. Eliecer Das MONO # 0.8 103/ul Normal 0.3-0.8 [facility] Comment on above: Performed By: #### B [id number] #### [facility] [address] [place] [address] Dr. Eliecer Das Monocytes/100 WBC (Bld) 12.1 % Critically high 1.7-12. 0 [facility] Comment on above: Performed By: #### B [id number] #### [facility] [address] [place] [address] Dr. Eliecer Das NEUT # 3.4 103/ul Normal 1.4-6.5 [facility] Comment on above: Performed By: #### B [id number] #### [facility] [address] [place] [address] Dr. Eliecer Das Neutrophils/100 WBC (Bld) 52.5 % Normal 43.0-75.0 [facility] Comment on above: Performed By: #### B [id number] #### [facility] [address] [place] [address] Dr. Eliecer Das Platelet mean volume (Bld) [Entitic vol] 9.6 fL Normal 9.5-13.5 [facility] Comment on above: Performed By: #### B [id number] #### [facility] [address] [place] [address] Dr. Eliecer Das PLT 236 103/ul Normal 150-450 [facility] Comment on above: Performed By: #### B [id number] #### [facility] [address] [place] [address] Dr. Eliecer Das RBC 3.40 106/ul Critically low 4.20-5.40 [facility] Comment on above: Performed By: #### B [id number] #### [facility] [address] [address] [address] Eliecer Das WBC 6.4 103/ul Normal 4.0-11.0 [facility] Comment on above: Performed By: #### B [id number] #### [facility] [address] [address] [address] Eliecer Das POINT OF CARE GLUCOSEon 01-14 Glucose [Mass/Vol] 185 mg/dL Critically high 74-106 [facility] Comment on above: Performed By: #### P OCGLUC #### [facility] [address] [place] [address] Dr. Eliecer Das PROF 14(COMP METB)on 023 Albumin [Mass/Vol] 2.1 g/dL Critically low 3.4-5.0 [facility] Comment on above: Performed By: #### B [id number] #### [facility] [address] [place] [address] Dr. Eliecer Das Albumin/Globulin [Mass ratio] 0.5 {ratio} Normal [facility] Comment on above: Performed By: #### B LDCX1 #### [facility] [address] [place] [address] Dr. Eliecer Das ALP [Catalytic activity/Vol] 75 U/L Normal 46-116 [facility] Comment on above: Performed By: #### B [id number] #### [facility] [address] [place] [address] Dr. Eliecer aDs ALT [Catalytic activity/Vol] 27 U/L Normal 14-59 [facility] Comment on above: Performed By: #### B [email or web address] #### [facility] [address] [place] [address] Dr. Eliecer Das Anion gap [Moles/Vol] 9.6 mmol/L Normal [facility] Comment on above: Performed By: #### B LDCX1 #### [facility] [address] [place] [address] Dr. Eliecer Das AST [Catalytic activity/Vol] 38 U/L Critically high 15-37 [facility] Comment on above: Performed By: #### B [id number] #### [facility] [address] [address] [address] Eliecer Das Bilirubin [Mass/Vol] 1.0 mg/dL Normal 0.2-1.0 [facility] Comment on above: Performed By: #### B [email or web address] #### [facility] [address] [place] [address] Dr. Eliecer Das Calcium [Mass/Vol] 9.0 mg/dL Normal 8.5-10.1 [facility] Comment on above: Performed By: #### B LDCX1 #### [facility] [address] [place] [address] Dr. Eliecer Das Chloride [Moles/Vol] 104 mmol/L Normal 98-107 [facility] Comment on above: Performed By: #### B LDCX1 #### [facility] [address] [place] [address] Dr. Eliecer Das CO2 [Moles/Vol] 28.9 mmol/L Normal 21.0-32.0 [facility] Comment on above: Performed By: #### B LDCX1 #### [facility] [address] [place] [address] Dr. Eliecer Das Creatinine [Mass/Vol] 0.85 mg/dL Normal 0.55-1.02 [facility] Comment on above: Performed By: #### B LDCX1 #### [facility] [address] [place] [address] Dr. Eliecer Das EGFR-AF NAMIBIAN >60 Normal >=60 [facility] Comment on above: Performed By: #### B LDCX1 #### [facility] [address] [place] [address] Dr. Eliecer Das EGFR-NON AF NAMIBIAN >60 Normal >=60 [facility] Comment on above: Performed By: #### B LDCX1 #### [facility] [address] [place] [address] Dr. Eliecer Das Globulin (S) [Mass/Vol] 3.9 g/dL Normal T [facility] Comment on above: Performed By: #### B LDCX1 #### [facility] [address] [address] [address] Eliecer Das Glucose [Mass/Vol] 132 mg/dL Critically high 74-106 [facility] Comment on above: Performed By: #### B LDCX1 #### [facility] [address] [place] [address] Dr. Eliecer Das Potassium [Moles/Vol] 4.5 mmol/L Normal 3.5-5.1 [facility] Comment on above: Performed By: #### B LDCX1 #### [facility] [address] [place] [address] Dr. Eliecer Das Protein [Mass/Vol] 6.0 g/dL Critically low 6.4-8.2 [facility] Comment on above: Performed By: #### B LDCX1 #### [facility] [address] [place] [address] Dr. Eliecer Das Sodium [Moles/Vol] 138 mmol/L Normal 136-145 [facility] Comment on above: Performed By: #### B LDCX1 #### [facility] [address] [place] [address] Dr. Eliecer Das Urea nitrogen [Mass/Vol] 14.0 mg/dL Normal 7.0-18.0 [facility] Comment on above: Performed By: #### B LDCX1 #### [facility] [address] [place] [address] Dr. Eliecer Das Urea nitrogen/Creatinine [Mass ratio] 16.5 mg/mg Normal [facility] Comment on above: Performed By: #### B LDCX1 #### [facility] [address] [place] [address] Dr. Eliecer Das CBC AUTO DIFFon 01-27-2023 BASO # 0.1 103/ul Normal 0.0-0.1 [facility] Comment on above: Performed By: #### B LDCX1 #### [facility] [address] [place] [address] Dr. Eliecer Das Basophils/100 WBC (Bld) 1.4 % Normal 0.2-2.0 [facility] Comment on above: Performed By: #### B LDCX1 #### [facility] [address] [place] [address] Dr. Eliecer Das EO # 0.3 103/ul Normal 0.0-0.7 [facility] Comment on above: Performed By: #### B LDCX1 #### [facility] [address] [place] [address] Dr. Eliecer Das Eosinophils/100 WBC (Bld) 4.0 % Normal 0.9-7.0 [facility] Comment on above: Performed By: #### B LDCX1 #### [facility] [address] [place] [address] Dr. Eliecer Das Erythrocyte distribution width (RBC) [Ratio] 19.6 % Critically high 11.0-15.0 [facility] Comment on above: Performed By: #### B LDCX1 #### [facility] [address] [place] [address] Dr. Eliecer Das Hematocrit (Bld) [Volume fraction] 34.4 % Critically low 36.0-48.0 [facility] Comment on above: Performed By: #### B LDCX1 #### [facility] [address] [place] [address] Dr. Eliecer Das Hemoglobin (Bld) [Mass/Vol] 12.6 g/dL Normal 12.0-16.0 [facility] Comment on above: Performed By: #### B LDCX1 #### [facility] [address] [place] [address] Dr. Eliecer Das IG # 0.07 10e3/ul Critically high 0.00-0.03 [facility] Comment on above: Performed By: #### B LDCX1 #### [facility] [address] [place] [address] Dr. Eliecer Das IG % 1.1 % Critically high 0.0-0.5 [facility] Comment on above: Performed By: #### B LDCX1 #### [facility] [address] [place] [address] Dr. Eliecer Das LYMPH # 2.0 103/ul Normal 1.2-3.8 [facility] Comment on above: Performed By: #### B LDCX1 #### [facility] [address] [place] [address] Dr. Eliecer Das Lymphocytes/100 WBC (Bld) 31.4 % Normal 20.5-60.0 [facility] Comment on above: Performed By: #### B LDCX1 #### [facility] [address] [place] [address] Dr. Eliecer Das MANUAL DIFF REQ NO Normal [facility] Comment on above: Performed By: #### B LDCX1 #### [facility] [address] [place] [address] Dr. Eliecer Das MCH (RBC) [Entitic mass] 38.0 pg Critically high 26.7-34.0 [facility] Comment on above: Performed By: #### B LDCX1 #### [facility] [address] [place] [address] Dr. Eliecer Das MCHC (RBC) [Mass/Vol] 36.6 g/dL Critically high 29.9-35.2 [facility] Comment on above: Performed By: #### B LDCX1 #### [facility] [address] [place] [address] Dr. Eliecer Das MCV (RBC) [Entitic vol] 103.6 fL Critically high 81.0-99 .0 [facility] Comment on above: Performed By: #### B LDCX1 #### [facility] [address] [place] [address] Dr. Eliecer Das MONO # 0.8 103/ul Normal 0.3-0.8 [facility] Comment on above: Performed By: #### B LDCX1 #### [facility] [address] [place] [address] Dr. Eliecer Das Monocytes/100 WBC (Bld) 12.5 % Critically high 1.7-12. 0 [facility] Comment on above: Performed By: #### B LDCX1 #### [facility] [address] [address] [address] Eliecer Das NEUT # 3.2 103/ul Normal 1.4-6.5 [facility] Comment on above: Performed By: #### B LDCX1 #### [facility] [address] [address] [address] Eliecer Das Neutrophils/100 WBC (Bld) 49.6 % Normal 43.0-75.0 [facility] Comment on above: Performed By: #### B LDCX1 #### [facility] [address] [address] [address] Eliecer Das Platelet mean volume (Bld) [Entitic vol] 9.5 fL Normal 9.5-13.5 [facility] Comment on above: Performed By: #### B LDCX1 #### [facility] [address] [place] [address] Dr. Eliecer Das PLT 242 103/ul Normal 150-450 [facility] Comment on above: Performed By: #### B LDCX1 #### [facility] [address] [place] [address] Dr. Eliecer Das RBC 3.32 106/ul Critically low 4.20-5.40 [facility] Comment on above: Performed By: #### B LDCX1 #### [facility] [address] [place] [address] Dr. Eliecer Das WBC 6.5 103/ul Normal 4.0-11.0 [facility] Comment on above: Performed By: #### B LDCX1 #### [facility] [address] [place] [address] Dr. Eliecer Das POINT OF CARE GLUCOSEon 01-14 Glucose [Mass/Vol] 127 mg/dL Critically high 74-106 [facility] Comment on above: Performed By: #### U RCX #### [facility] [address] [place] [address] Dr. Eliecer Das Glucose [Mass/Vol] 157 mg/dL Critically high 74-106 [facility] Comment on above: Performed By: #### P OCGLUC #### [facility] [address] [address] [address] Eliecer Das Glucose [Mass/Vol] 122 mg/dL Critically high 74-106 [facility] Comment on above: Performed By: #### C VDTBH #### [facility] [address] [place] [address] Dr. Eliecer Das Glucose [Mass/Vol] 148 mg/dL Critically high 74-106 [facility] Comment on above: Performed By: #### P OCGLUC #### [facility] [address] [place] [address] Dr. Eliecer Das PROF 14(COMP METB)on 023 Albumin [Mass/Vol] 2.2 g/dL Critically low 3.4-5.0 [facility] Comment on above: Performed By: #### C VDTBH #### [facility] [address] [place] [address] Dr. Eliecer Das Albumin/Globulin [Mass ratio] 0.6 {ratio} Normal [facility] Comment on above: Performed By: #### C VDTBH #### [facility] [address] [place] [address] Dr. Eliecer Das ALP [Catalytic activity/Vol] 75 U/L Normal 46-116 [facility] Comment on above: Performed By: #### C VDTBH #### [facility] [address] [place] [address] Dr. Eliecer Das ALT [Catalytic activity/Vol] 28 U/L Normal 14-59 [facility] Comment on above: Performed By: #### C VDTBH #### [facility] [address] [place] [address] Dr. Eliecer Das Anion gap [Moles/Vol] 10.9 mmol/L Normal [facility] Comment on above: Performed By: #### C VDTBH #### [facility] [address] [place] [address] Dr. Eliecer Das AST [Catalytic activity/Vol] 42 U/L Critically high 15-37 [facility] Comment on above: Performed By: #### C VDTBH #### [facility] [address] [place] [address] Dr. Eliecer Das Bilirubin [Mass/Vol] 1.1 mg/dL Critically high 0.2-1.0 [facility] Comment on above: Performed By: #### C VDTBH #### [facility] [address] [place] [address] Dr. Eliecer Das Calcium [Mass/Vol] 8.9 mg/dL Normal 8.5-10.1 [facility] Comment on above: Performed By: #### C VDTBH #### [facility] [address] [place] [address] Dr. Eliecer Das Chloride [Moles/Vol] 103 mmol/L Normal 98-107 [facility] Comment on above: Performed By: #### C VDTBH #### [facility] [address] [place] [address] Dr. Eliecer Das CO2 [Moles/Vol] 30.2 mmol/L Normal 21.0-32.0 [facility] Comment on above: Performed By: #### C VDTBH #### [facility] [address] [place] [address] Dr. Eliecer Das Creatinine [Mass/Vol] 1.04 mg/dL Critically high 0.55-1.02 [facility] Comment on above: Performed By: #### C VDTBH #### [facility] [address] [place] [address] Dr. Eliecer Das EGFR-AF NAMIBIAN >60 Normal >=60 [facility] Comment on above: Performed By: #### C VDTBH #### [facility] [address] [place] [address] Dr. Eliecer Das EGFR-NON AF NAMIBIAN 50 mL/min/1.73m2 Critically low >=60 [facility] Comment on above: Performed By: #### C VDTBH #### [facility] [address] [place] [address] Dr. Eliecer Das Globulin (S) [Mass/Vol] 4.0 g/dL Normal T [facility] Comment on above: Performed By: #### C VDTBH #### [facility] [address] [address] [address] Eliecer Das Glucose [Mass/Vol] 149 mg/dL Critically high 74-106 [facility] Comment on above: Performed By: #### C VDTBH #### [facility] [address] [address] [address] Eliecer Das Potassium [Moles/Vol] 4.1 mmol/L Normal 3.5-5.1 [facility] Comment on above: Performed By: #### C VDTBH #### [facility] [address] [place] [address] Dr. Eliecer Das Protein [Mass/Vol] 6.2 g/dL Critically low 6.4-8.2 [facility] Comment on above: Performed By: #### C VDTBH #### [facility] [address] [place] [address] Dr. Eliecer Das Sodium [Moles/Vol] 140 mmol/L Normal 136-145 [facility] Comment on above: Performed By: #### C VDTBH #### [facility] [address] [place] [address] Dr. Eliecer Das Urea nitrogen [Mass/Vol] 17.0 mg/dL Normal 7.0-18.0 [facility] Comment on above: Performed By: #### C VDTBH #### [facility] [address] [place] [address] Dr. Eliecer Das Urea nitrogen/Creatinine [Mass ratio] 16.3 mg/mg Normal [facility] Comment on above: Performed By: #### C VDTBH #### [facility] [address] [place] [address] Dr. Eliecer Das CBC AUTO DIFFon 01-26-2023 BASO # 0.1 103/ul Normal 0.0-0.1 [facility] Comment on above: Performed By: #### B [id number] #### [facility] [address] [place] [address] Dr. Eliecer Das Basophils/100 WBC (Bld) 1.0 % Normal 0.2-2.0 [facility] Comment on above: Performed By: #### B LDCX2 #### [facility] [address] [place] [address] Dr. Eliecer Das EO # 0.2 103/ul Normal 0.0-0.7 [facility] Comment on above: Performed By: #### B LDCX2 #### [facility] [address] [place] [address] Dr. Eliecer Das Eosinophils/100 WBC (Bld) 3.8 % Normal 0.9-7.0 [facility] Comment on above: Performed By: #### B LDCX2 #### [facility] [address] [place] [address] Dr. Eliecer Das Erythrocyte distribution width (RBC) [Ratio] 16.4 % Critically high 11.0-15.0 [facility] Comment on above: Performed By: #### B LDCX2 #### [facility] [address] [place] [address] Dr. Eliecer Das Hematocrit (Bld) [Volume fraction] 35.9 % Critically low 36.0-48.0 [facility] Comment on above: Performed By: #### B LDCX2 #### [facility] [address] [place] [address] Dr. Eliecer Das Hemoglobin (Bld) [Mass/Vol] 12.3 g/dL Normal 12.0-16.0 [facility] Comment on above: Performed By: #### B LDCX2 #### [facility] [address] [place] [address] Dr. Eliecer Das IG # 0.04 10e3/ul Critically high 0.00-0.03 [facility] Comment on above: Performed By: #### B LDCX2 #### [facility] [address] [place] [address] Dr. Eliecer Das IG % 0.7 % Critically high 0.0-0.5 [facility] Comment on above: Performed By: #### B LDCX2 #### [facility] [address] [place] [address] Dr. Eliecer Das LYMPH # 2.1 103/ul Normal 1.2-3.8 [facility] Comment on above: Performed By: #### B LDCX2 #### [facility] [address] [place] [address] Dr. Eliecer Das Lymphocytes/100 WBC (Bld) 35.1 % Normal 20.5-60.0 [facility] Comment on above: Performed By: #### B LDCX2 #### [facility] [address] [place] [address] Dr. Eliecer Das MANUAL DIFF REQ NO Normal [facility] Comment on above: Performed By: #### B LDCX2 #### [facility] [address] [place] [address] Dr. Eliecer Das MCH (RBC) [Entitic mass] 34.5 pg Critically high 26.7-34.0 [facility] Comment on above: Performed By: #### B LDCX2 #### [facility] [address] [place] [address] Dr. Eliecer Das MCHC (RBC) [Mass/Vol] 34.3 g/dL Normal 29.9-35.2 [facility] Comment on above: Performed By: #### B LDCX2 #### [facility] [address] [place] [address] Dr. Eliecer Das MCV (RBC) [Entitic vol] 100.6 fL Critically high 81.0-99 .0 [facility] Comment on above: Performed By: #### B LDCX2 #### [facility] [address] [place] [address] Dr. Eliecer Das MONO # 0.6 103/ul Normal 0.3-0.8 [facility] Comment on above: Performed By: #### B LDCX2 #### [facility] [address] [place] [address] Dr. Eliecer Das Monocytes/100 WBC (Bld) 10.4 % Normal 1.7-12.0 [facility] Comment on above: Performed By: #### B LDCX2 #### [facility] [address] [place] [address] Dr. Eliecer Das NEUT # 2.9 103/ul Normal 1.4-6.5 [facility] Comment on above: Performed By: #### B LDCX2 #### [facility] [address] [address] [address] Eliecer Das Neutrophils/100 WBC (Bld) 49.0 % Normal 43.0-75.0 [facility] Comment on above: Performed By: #### B LDCX2 #### [facility] [address] [address] [address] Eliecer Das Platelet mean volume (Bld) [Entitic vol] 9.5 fL Normal 9.5-13.5 [facility] Comment on above: Performed By: #### B LDCX2 #### [facility] [address] [place] [address] Dr. Eliecer Das PLT 260 103/ul Normal 150-450 [facility] Comment on above: Performed By: #### B LDCX2 #### [facility] [address] [place] [address] Dr. Eliecer Das RBC 3.57 106/ul Critically low 4.20-5.40 [facility] Comment on above: Performed By: #### B LDCX2 #### [facility] [address] [place] [address] Dr. Eliecer Das WBC 6.0 103/ul Normal 4.0-11.0 [facility] Comment on above: Performed By: #### B LDCX2 #### [facility] [address] [place] [address] Dr. Eliecer Das POINT OF CARE GLUCOSEon 05- Glucose [Mass/Vol] 217 mg/dL Critically high 74-106 [facility] Comment on above: Performed By: #### B LDCX1 #### [facility] [address] [place] [address] Dr. Eliecer Das Glucose [Mass/Vol] 149 mg/dL Critically high 74-106 [facility] Comment on above: Performed By: #### P OCGLUC #### [facility] [address] [place], [place] [id number] Dr. Eliecer Das Glucose [Mass/Vol] 126 mg/dL Critically high 74-106 T [facility] Comment on above: Performed By: #### P OCGLUC #### [facility] [address] [place] [address] Dr. Eliecer Das PROF 14(COMP METB)on 023 Albumin [Mass/Vol] 2.2 g/dL Critically low 3.4-5.0 [facility] Comment on above: Performed By: #### B LDCX2 #### [facility] [address] [place] [address] Dr. Eliecer Das Albumin/Globulin [Mass ratio] 0.6 {ratio} Normal [facility] Comment on above: Performed By: #### B LDCX2 #### [facility] [address] [place] [address] Dr. Eliecer Das ALP [Catalytic activity/Vol] 71 U/L Normal 46-116 [facility] Comment on above: Performed By: #### B LDCX2 #### [facility] [address] [place] [address] Dr. Eliecer Das ALT [Catalytic activity/Vol] 25 U/L Normal 14-59 [facility] Comment on above: Performed By: #### B LDCX2 #### [facility] [address] [place] [address] Dr. Eliecer Das Anion gap [Moles/Vol] 8.1 mmol/L Normal [facility] Comment on above: Performed By: #### B LDCX2 #### [facility] [address] [place] [address] Dr. Eliecer Das AST [Catalytic activity/Vol] 40 U/L Critically high 15-37 [facility] Comment on above: Performed By: #### B LDCX2 #### [facility] [address] [place] [address] Dr. Eliecer Das Bilirubin [Mass/Vol] 1.3 mg/dL Critically high 0.2-1.0 [facility] Comment on above: Performed By: #### B LDCX2 #### [facility] [address] [address] [address] Eliecer Das Calcium [Mass/Vol] 8.8 mg/dL Normal 8.5-10.1 [facility] Comment on above: Performed By: #### B LDCX2 #### [facility] [address] [address] [address] Eliecer Das Chloride [Moles/Vol] 106 mmol/L Normal 98-107 [facility] Comment on above: Performed By: #### B LDCX2 #### [facility] [address] [address] [address] Eliecer Das CO2 [Moles/Vol] 29.7 mmol/L Normal 21.0-32.0 [facility] Comment on above: Performed By: #### B LDCX2 #### [facility] [address] [address] [address] Eliecer Das Creatinine [Mass/Vol] 1.00 mg/dL Normal 0.55-1.02 [facility] Comment on above: Performed By: #### B LDCX2 #### [facility] [address] [address] [address] Eliecer Das EGFR-AF NAMIBIAN >60 Normal >=60 [facility] Comment on above: Performed By: #### B LDCX2 #### [facility] [address] [address] [address] Eliecer Das EGFR-NON AF NAMIBIAN 53 mL/min/1.73m2 Critically low >=60 [facility] Comment on above: Performed By: #### B LDCX2 #### [facility] [address] [address] [address] Eliecer Das Globulin (S) [Mass/Vol] 3.9 g/dL Normal [facility] Comment on above: Performed By: #### B LDCX2 #### [facility] [address] [address] [address] Eliecer Das Glucose [Mass/Vol] 139 mg/dL Critically high 74-106 [facility] Comment on above: Performed By: #### B LDCX2 #### [facility] [address] [place] [address] Dr. Eliecer Das Potassium [Moles/Vol] 3.8 mmol/L Normal 3.5-5.1 [facility] Comment on above: Performed By: #### B LDCX2 #### [facility] [address] [place] [address] Dr. Eliecer Das Protein [Mass/Vol] 6.1 g/dL Critically low 6.4-8.2 [facility] Comment on above: Performed By: #### B LDCX2 #### [facility] [address] [place] [address] Dr. Eliecer Das Sodium [Moles/Vol] 140 mmol/L Normal 136-145 [facility] Comment on above: Performed By: #### B LDCX2 #### [facility] [address] [place] [address] Dr. Eliecer Das Urea nitrogen [Mass/Vol] 14.0 mg/dL Normal 7.0-18.0 [facility] Comment on above: Performed By: #### B LDCX2 #### [facility] [address] [place] [address] Dr. Eliecer Das Urea nitrogen/Creatinine [Mass ratio] 14.0 mg/mg Normal [facility] Comment on above: Performed By: #### B LDCX2 #### [facility] [address] [place] [address] Dr. Eliecer Das CBC AUTO DIFFon 01-25-2023 BASO # 0.1 103/ul Normal 0.0-0.1 [facility] Comment on above: Performed By: #### B LDCX1 #### [facility] [address] [place] [address] Dr. Eliecer Das Basophils/100 WBC (Bld) 1.1 % Normal 0.2-2.0 [facility] Comment on above: Performed By: #### B LDCX1 #### [facility] [address] [place] [address] Dr. Eliecer Das EO # 0.2 103/ul Normal 0.0-0.7 [facility] Comment on above: Performed By: #### B LDCX1 #### [facility] [address] [place] [address] Dr. Eliecer Das Eosinophils/100 WBC (Bld) 4.4 % Normal 0.9-7.0 [facility] Comment on above: Performed By: #### B LDCX1 #### [facility] [address] [place] [address] Dr. Eliecer Das Erythrocyte distribution width (RBC) [Ratio] 17.3 % Critically high 11.0-15.0 [facility] Comment on above: Performed By: #### B LDCX1 #### [facility] [address] [place] [address] Dr. Eliecer Das Hematocrit (Bld) [Volume fraction] 35.3 % Critically low 36.0-48.0 [facility] Comment on above: Performed By: #### B LDCX1 #### [facility] [address] [place] [address] Dr. Eliecer Das Hemoglobin (Bld) [Mass/Vol] 12.6 g/dL Normal 12.0-16.0 [facility] Comment on above: Performed By: #### B [id number] #### [facility] [address] [place] [address] Dr. Eliecer Das IG # 0.03 10e3/ul Normal 0.00-0.03 [facility] Comment on above: Performed By: #### B LDCX1 #### [facility] [address] [place] [address] Dr. Eliecer Das IG % 0.6 % Critically high 0.0-0.5 [facility] Comment on above: Performed By: #### B LDCX1 #### [facility] [address] [place] [address] Dr. Eliecer Das LYMPH # 2.0 103/ul Normal 1.2-3.8 [facility] Comment on above: Performed By: #### B LDCX1 #### [facility] [address] [place] [address] Dr. Eliecer Das Lymphocytes/100 WBC (Bld) 38.4 % Normal 20.5-60.0 [facility] Comment on above: Performed By: #### B LDCX1 #### [facility] [address] [place] [address] Dr. Eliecer Das MANUAL DIFF REQ NO Normal [facility] Comment on above: Performed By: #### B LDCX1 #### [facility] [address] [place] [address] Dr. Eliecer Das MCH (RBC) [Entitic mass] 36.0 pg Critically high 26.7-34.0 [facility] Comment on above: Performed By: #### B LDCX1 #### [facility] [address] [place] [address] Dr. Eliecer Das MCHC (RBC) [Mass/Vol] 35.7 g/dL Critically high 29.9-35.2 [facility] Comment on above: Performed By: #### B LDCX1 #### [facility] [address] [place] [address] Dr. Eliecer Das MCV (RBC) [Entitic vol] 100.9 fL Critically high 81.0-99 .0 [facility] Comment on above: Performed By: #### B LDCX1 #### [facility] [address] [place] [address] Dr. Eliecer Das MONO # 0.6 103/ul Normal 0.3-0.8 [facility] Comment on above: Performed By: #### B LDCX1 #### [facility] [address] [place] [address] Dr. Eliecer Das Monocytes/100 WBC (Bld) 11.1 % Normal 1.7-12.0 [facility] Comment on above: Performed By: #### B LDCX1 #### [facility] [address] [place] [address] Dr. Eliecer Das NEUT # 2.3 103/ul Normal 1.4-6.5 [facility] Comment on above: Performed By: #### B LDCX1 #### [facility] [address] [place] [address] Dr. Eliecer Das Neutrophils/100 WBC (Bld) 44.4 % Normal 43.0-75.0 [facility] Comment on above: Performed By: #### B LDCX1 #### [facility] [address] [place] [address] Dr. Eliecer Das Platelet mean volume (Bld) [Entitic vol] 9.5 fL Normal 9.5-13.5 [facility] Comment on above: Performed By: #### B LDCX1 #### [facility] [address] [place] [address] Dr. Eliecer Das PLT 264 103/ul Normal 150-450 [facility] Comment on above: Performed By: #### B LDCX1 #### [facility] [address] [place] [address] Dr. Eliecer Das RBC 3.50 106/ul Critically low 4.20-5.40 [facility] Comment on above: Performed By: #### B LDCX1 #### [facility] [address] [place] [address] Dr. Eliecer Das WBC 5.2 103/ul Normal 4.0-11.0 [facility] Comment on above: Performed By: #### B LDCX1 #### [facility] [address] [place] [address] Dr. Eliecer Das POINT OF CARE GLUCOSEon 01-14 Glucose [Mass/Vol] 189 mg/dL Critically high 74-106 [facility] Comment on above: Performed By: #### P OCGLUC #### [facility] [address] [place] [address] Dr. Eliecer Das Glucose [Mass/Vol] 69 mg/dL Critically low 74-106 [facility] Comment on above: Performed By: #### B LDCX2 #### [facility] [address] [place] [address] Dr. Eliecer Das Glucose [Mass/Vol] 220 mg/dL Critically high 74-106 [facility] Comment on above: Performed By: #### U RCX #### [facility] [address] [place] [address] Dr. Eliecer Das PROF 14(COMP METB)on 023 Albumin [Mass/Vol] 2.3 g/dL Critically low 3.4-5.0 [facility] Comment on above: Performed By: #### P OCGLUC #### [facility] [address] [place] [address] Dr. Eliecer Das Albumin/Globulin [Mass ratio] 0.6 {ratio} Normal [facility] Comment on above: Performed By: #### P OCGLUC #### [facility] [address] [address] [address] Eliecer Das ALP [Catalytic activity/Vol] 77 U/L Normal 46-116 [facility] Comment on above: Performed By: #### P OCGLUC #### [facility] [address] [place] [address] Dr. Eliecer Das ALT [Catalytic activity/Vol] 31 U/L Normal 14-59 [facility] Comment on above: Performed By: #### P OCGLUC #### [facility] [address] [address] [address] Eliecer Das Anion gap [Moles/Vol] 8.6 mmol/L Normal [facility] Comment on above: Performed By: #### P OCGLUC #### [facility] [address] [place] [address] Dr. Eliecer Das AST [Catalytic activity/Vol] 42 U/L Critically high 15-37 [facility] Comment on above: Performed By: #### P OCGLUC #### [facility] [address] [address] [address] Eliecer Das Bilirubin [Mass/Vol] 1.8 mg/dL Critically high 0.2-1.0 [facility] Comment on above: Performed By: #### P OCGLUC #### [facility] [address] [address] [address] Eliecer Das Calcium [Mass/Vol] 8.7 mg/dL Normal 8.5-10.1 [facility] Comment on above: Performed By: #### P OCGLUC #### [facility] [address] [place] [address] Dr. Eliecer Das Chloride [Moles/Vol] 109 mmol/L Critically high 98-107 [facility] Comment on above: Performed By: #### P OCGLUC #### [facility] [address] [address] [address] Eliecer Das CO2 [Moles/Vol] 29.3 mmol/L Normal 21.0-32.0 [facility] Comment on above: Performed By: #### P OCGLUC #### [facility] [address] [address] [address] Eliecer Das Creatinine [Mass/Vol] 0.86 mg/dL Normal 0.55-1.02 [facility] Comment on above: Performed By: #### P OCGLUC #### [facility] [address] [address] [address] Eliecer Das EGFR-AF NAMIBIAN >60 Normal >=60 [facility] Comment on above: Performed By: #### P OCGLUC #### [facility] [address] [address] [address] Eliecer Das EGFR-NON AF NAMIBIAN >60 Normal >=60 [facility] Comment on above: Performed By: #### P OCGLUC #### [facility] [address] [address] [address] Eliecer Das Globulin (S) [Mass/Vol] 3.9 g/dL Normal T [facility] Comment on above: Performed By: #### P OCGLUC #### [facility] [address] [address] [address] Eliecer Das Glucose [Mass/Vol] 104 mg/dL Normal 74-106 [facility] Comment on above: Performed By: #### P OCGLUC #### [facility] [address] [address] [address] Eliecer Das Potassium [Moles/Vol] 3.9 mmol/L Normal 3.5-5.1 [facility] Comment on above: Performed By: #### P OCGLUC #### [facility] [address] [address] [address] Eliecer Das Protein [Mass/Vol] 6.2 g/dL Critically low 6.4-8.2 [facility] Comment on above: Performed By: #### P OCGLUC #### [facility] [address] [place] [address] Dr. Eliecer Das Sodium [Moles/Vol] 143 mmol/L Normal 136-145 [facility] Comment on above: Performed By: #### P OCGLUC #### [facility] [address] [place] [address] Dr. Eliecer Das Urea nitrogen [Mass/Vol] 12.0 mg/dL Normal 7.0-18.0 [facility] Comment on above: Performed By: #### P OCGLUC #### [facility] [address] [place] [address] Dr. Eliecer aDs Urea nitrogen/Creatinine [Mass ratio] 14.0 mg/mg Normal [facility] Comment on above: Performed By: #### P OCGLUC #### [facility] [address] [place] [address] Dr. Eliecer Das BNPon 01-24-2023 Natriuretic peptide B (Bld) [Mass/Vol] 66.0 pg/mL Normal <=1,800.0 [facility] Comment on above: Performed By: #### C VDTBH #### [facility] [address] [place] [address] Dr. Eliecer Das CARDIAC MARQUIS ADMITon 023 CK [Catalytic activity/Vol] 21 U/L Critically low 26-192 [facility] Comment on above: Performed By: #### C VDTBH #### [facility] [address] [place] [address] Dr. Eliecer Das CK.MB [Mass/Vol] ng/mL Normal <=3.60 [facility] Comment on above: Performed By: #### C VDTBH #### [facility] [address] [place] [address] Dr. Eliecer Das HSTROP 7.1 pg/mL Normal 4.0-51.3 [facility] Comment on above: Result Comment: CUT- OFF POINTS HAVE BEEN ESTABLISHED BASED ON THE FOURTH UNIVERSAL DEFINITIONS OF MYOCARDIAL INFARCTION. THE UPPER REFERENCE LIMIT (URL) OF TROPONIN, DEFINED THE 99TH PERCENTILE OF cTnI DISTRIBUTION IN A REFERENCE POPULATION, HAS BEEN CONFIRMED THE DECISION THRESHOLD FOR MS DIAGNOSIS. Performed By: #### C VDTBH #### [facility] [address] [place] [address] Dr. Eliecer Das CHEPE 23 ng/mL Normal 9-82 [facility] Comment on above: Performed By: #### C VDTBH #### [facility] [address] [place] [address] Dr. Eliecer Das CBC AUTO DIFFon 01-24-2023 BASO # 0.1 103/ul Normal 0.0-0.1 [facility] Comment on above: Performed By: #### B LDCX2 #### [facility] [address] [place] [address] Dr. Eliecer Das Basophils/100 WBC (Bld) 1.2 % Normal 0.2-2.0 [facility] [facility] Comment on above: Performed By: #### B LDCX2 #### [facility] [address] [place] [address] Dr. Eliecer Das EO # 0.2 103/ul Normal 0.0-0.7 [facility] Comment on above: Performed By: #### B LDCX2 #### [facility] [address] [place] [address] Dr. Eliecer Das Eosinophils/100 WBC (Bld) 3.4 % Normal 0.9-7.0 [facility] Comment on above: Performed By: #### B LDCX2 #### [facility] [address] [place] [address] Dr. Eliecer Das Erythrocyte distribution width (RBC) [Ratio] 17.3 % Critically high 11.0-15.0 [facility] Comment on above: Performed By: #### B LDCX2 #### [facility] [address] [place] [address] Dr. Eliecer Das Hematocrit (Bld) [Volume fraction] 39.8 % Normal 36.0-48.0 [facility] Comment on above: Performed By: #### B LDCX2 #### [facility] [address] [place] [address] Dr. Eliecer Das Hemoglobin (Bld) [Mass/Vol] 13.8 g/dL Normal 12.0-16.0 [facility] Comment on above: Performed By: #### B LDCX2 #### [facility] [address] [place] [address] Dr. Eliecer Das IG # 0.04 10e3/ul Critically high 0.00-0.03 [facility] Comment on above: Performed By: #### B LDCX2 #### [facility] [address] [place] [address] Dr. Eliecer Das IG % 0.7 % Critically high 0.0-0.5 [facility] Comment on above: Performed By: #### B LDCX2 #### [facility] [address] [place] [address] Dr. Eliecer Das LYMPH # 1.9 103/ul Normal 1.2-3.8 [facility] Comment on above: Performed By: #### B LDCX2 #### [facility] [address] [place] [address] Dr. Eliecer Das Lymphocytes/100 WBC (Bld) 33.7 % Normal 20.5-60.0 [facility] Comment on above: Performed By: #### B LDCX2 #### [facility] [address] [place] [address] Dr. Eliecer Das MANUAL DIFF REQ NO Normal [facility] Comment on above: Performed By: #### B LDCX2 #### [facility] [address] [place] [address] Dr. Eliecer Das MCH (RBC) [Entitic mass] 34.7 pg Critically high 26.7-34.0 [facility] Comment on above: Performed By: #### B LDCX2 #### [facility] [address] [place] [address] Dr. Eliecer Das MCHC (RBC) [Mass/Vol] 34.7 g/dL Normal 29.9-35.2 [facility] Comment on above: Performed By: #### B LDCX2 #### [facility] [address] [address] [address] Eliecer Das MCV (RBC) [Entitic vol] 100.0 fL Critically high 81.0-99 .0 [facility] Comment on above: Performed By: #### B LDCX2 #### [facility] [address] [place] [address] Dr. Eliecer Das MONO # 0.5 103/ul Normal 0.3-0.8 [facility] Comment on above: Performed By: #### B LDCX2 #### [facility] [address] [place] [address] Dr. Eliecer Das Monocytes/100 WBC (Bld) 8.3 % Normal 1.7-12.0 [facility] Comment on above: Performed By: #### B LDCX2 #### [facility] [address] [place] [address] Dr. Eliecer Das NEUT # 3.0 103/ul Normal 1.4-6.5 [facility] Comment on above: Performed By: #### B LDCX2 #### [facility] [address] [place] [address] Dr. Eliecer Das Neutrophils/100 WBC (Bld) 52.7 % Normal 43.0-75.0 [facility] Comment on above: Performed By: #### B LDCX2 #### [facility] [address] [place] [address] Dr. Eliecer Das Platelet mean volume (Bld) [Entitic vol] 9.3 fL Critically low 9.5-13.5 [facility] Comment on above: Performed By: #### B LDCX2 #### [facility] [address] [place] [address] Dr. Eliecer Dsa PLT 293 103/ul Normal 150-450 [facility] Comment on above: Performed By: #### B LDCX2 #### [facility] [address] [place] [address] Dr. Eliecer Das RBC 3.98 106/ul Critically low 4.20-5.40 [facility] Comment on above: Performed By: #### B LDCX2 #### [facility] [address] [place] [address] Dr. Eliecer Das WBC 5.7 103/ul Normal 4.0-11.0 [facility] Comment on above: Performed By: #### B LDCX2 #### [facility] [address] [place] [address] Dr. Eliecer Das CULTURE BLOODon 01-24-2023 Microscopic examination of blood, culture Culture Observations: NO GROWTH AT 5 DAYS. Normal [facility] Comment on above: Performed By: #### B LDCX2 #### [facility] [address] [place] [address] Dr. Eliecer Das Microscopic examination of blood, culture Culture Observations: NO GROWTH AT 5 DAYS. Normal [facility] Comment on above: Performed By: #### B LDCX1 #### [facility] [address] [place] [address] Dr. Eliecer Das CULTURE URINEon 01-24-2023 CULTURE URINE Culture Observations : NO GROWTH. Normal [facility] Comment on above: Performed By: #### U RCX #### [facility] [address] [place] [address] Dr. Eliecer Das [facility] SARS-CoV-2 (COVID-19) RNA PELON+probe Ql (Unsp spec) Not detected Normal NOT DETECTED [facility] Comment on above: Performed By: #### P OCGLUC #### [facility] [address] [place] [address] Dr. Eliecer Das ER URINE PROFILEon 3 Bilirubin Ql (U) Negative Normal NEGATIVE [facility] Comment on above: Performed By: #### B LDCX2 #### [facility] [address] [place] [address] Dr. Eliecer Das Clarity (U) CLEAR Normal CLEAR [facility] Comment on above: Performed By: #### B LDCX2 #### [facility] [address] [place] [address] Dr. Elieecr Das Color (U) YELLOW Normal YELLOW [facility] Comment on above: Performed By: #### B LDCX2 #### [facility] [address] [address] [address] Eliecer GRAHAM A micrscopic examination will be performed if indicated. Normal [facility] Comment on above: Performed By: #### B LDCX2 #### [facility] [address] [place] [address] Dr. Eliecer Das Glucose Ql (U) Negative Normal NEGATIVE [facility] Comment on above: Performed By: #### B LDCX2 #### [facility] [address] [place] [address] Dr. Eliecer Das Hemoglobin Ql (U) LARGE Abnormal NEGATIVE [facility] Comment on above: Performed By: #### B LDCX2 #### [facility] [address] [place] [address] Dr. Eliecer Das Ketones Ql (U) Negative Normal NEGATIVE [facility] Comment on above: Performed By: #### B LDCX2 #### [facility] [address] [place] [address] Dr. Eliecer Das LEUKOCYTES TRACE Abnormal NEGATIVE [facility] Comment on above: Performed By: #### B LDCX2 #### [facility] [address] [place] [address] Dr. Eliecer Das Nitrite Ql (U) Negative Normal NEGATIVE [facility] Comment on above: Performed By: #### B LDCX2 #### [facility] [address] [place] [address] Dr. Eliecer Das pH (U) 6.5 [pH] Normal 5-9 [facility] Comment on above: Performed By: #### B LDCX2 #### [facility] [address] [place] [address] Dr. Eliecer Das SPEC GRAVITY 1.020 Normal 1.005-<=1.0 25 [facility] Comment on above: Performed By: #### B LDCX2 #### [facility] [address] [place] [address] Dr. Eliecer Das UA PROTEIN Negative Normal NEGATIVE/ TRACE [facility] Comment on above: Performed By: #### B LDCX2 #### [facility] [address] [place] [address] Dr. Eliecer Das UR MICRO IND INDICATED Normal [facility] Comment on above: Performed By: #### B LDCX2 #### [facility] [address] [place] [address] Dr. Eliecer Das Urobilinogen Qn (U) 2.0 {Narinder'U}/dL Abnormal 0.2 - 1. 0 [facility] Comment on above: Performed By: #### B LDCX2 #### [facility] [address] [place] [address] Dr. Eliecer Das POINT OF CARE GLUCOSEon 01-14 Glucose [Mass/Vol] 153 mg/dL Critically high 74-106 [facility] Comment on above: Performed By: #### B LDCX2 #### [facility] [address] [place] [address] Dr. Eliecer Das Glucose [Mass/Vol] 176 mg/dL Critically high 74-106 [facility] Comment on above: Performed By: #### B LDCX2 #### [facility] [address] [place] [address] Dr. Eliecer Das PROF 14(COMP METB)on 023 Albumin [Mass/Vol] 2.7 g/dL Critically low 3.4-5.0 [facility] Comment on above: Performed By: #### C VDTBH #### [facility] [address] [place] [address] Dr. Eliecer Das Albumin/Globulin [Mass ratio] 0.6 {ratio} Normal [facility] Comment on above: Performed By: #### C VDTBH #### [facility] [address] [place] [address] Dr. Eliecer Das ALP [Catalytic activity/Vol] 91 U/L Normal 46-116 [facility] Comment on above: Performed By: #### C VDTBH #### [facility] [address] [place] [address] Dr. Eliecer Das ALT [Catalytic activity/Vol] 36 U/L Normal 14-59 [facility] Comment on above: Performed By: #### C VDTBH #### [facility] [address] [place] [address] Dr. Eliecer Das Anion gap [Moles/Vol] 10.8 mmol/L Normal [facility] Comment on above: Performed By: #### C VDTBH #### [facility] [address] [place] [address] Dr. Eliecer Das AST [Catalytic activity/Vol] 53 U/L Critically high 15-37 [facility] Comment on above: Performed By: #### C VDTBH #### [facility] [address] [place] [address] Dr. Eliecer Das Bilirubin [Mass/Vol] 1.3 mg/dL Critically high 0.2-1.0 [facility] Comment on above: Performed By: #### C VDTBH #### [facility] [address] [place] [address] Dr. Eliecer Das Calcium [Mass/Vol] 9.2 mg/dL Normal 8.5-10.1 [facility] Comment on above: Performed By: #### C VDTBH #### [facility] [address] [place] [address] Dr. Eliecer Das Chloride [Moles/Vol] 108 mmol/L Critically high 98-107 [facility] Comment on above: Performed By: #### C VDTBH #### [facility] [address] [place] [address] Dr. Eliecer Das CO2 [Moles/Vol] 29.4 mmol/L Normal 21.0-32.0 [facility] Comment on above: Performed By: #### C VDTBH #### [facility] [address] [place] [address] Dr. Eliecer Das Creatinine [Mass/Vol] 0.92 mg/dL Normal 0.55-1.02 [facility] Comment on above: Performed By: #### C VDTBH #### [facility] [address] [place] [address] Dr. Eliecer Das EGFR-AF NAMIBIAN >60 Normal >=60 [facility] Comment on above: Performed By: #### C VDTBH #### [facility] [address] [place] [address] Dr. Eliecer Das EGFR-NON AF NAMIBIAN 58 mL/min/1.73m2 Critically low >=60 [facility] Comment on above: Performed By: #### C VDTBH #### [facility] [address] [address] [address] Eliecer Das Globulin (S) [Mass/Vol] 4.5 g/dL Normal [facility] Comment on above: Performed By: #### C VDTBH #### [facility] [address] [place] [address] Dr. Eliecer Das Glucose [Mass/Vol] 120 mg/dL Critically high 74-106 [facility] Comment on above: Performed By: #### C VDTBH #### [facility] [address] [place] [address] Dr. Eliecer Das Potassium [Moles/Vol] 4.2 mmol/L Normal 3.5-5.1 [facility] Comment on above: Performed By: #### C VDTBH #### [facility] [address] [place] [address] Dr. Eliecer Das Protein [Mass/Vol] 7.2 g/dL Normal 6.4-8.2 [facility] Comment on above: Performed By: #### C VDTBH #### [facility] [address] [place] [address] Dr. Eliecer Das Sodium [Moles/Vol] 144 mmol/L Normal 136-[address] [facility] Comment on above: Performed By: #### C VDTBH #### [facility] [address] [place] [address] Dr. Eliecer Das Urea nitrogen [Mass/Vol] 15.0 mg/dL Normal 7.0-18.0 [facility] Comment on above: Performed By: #### C VDTBH #### [facility] [address] [place] [address] Dr. Eliecer Das Urea nitrogen/Creatinine [Mass ratio] 16.3 mg/mg Normal [facility] Comment on above: Performed By: #### C VDTBH #### [facility] [address] [place] [address] Dr. Eliecer Das PROTIMEon 01-24-2023 INR Coag (PPP) [Relative time] 1.03 {INR} Normal [facility] Comment on above: Performed By: #### B LDCX1 #### [facility] [address] [place] [address] Dr. Eliecer Das INR GUIDELINES SEE BELOW Normal [facility] Comment on above: Result Comment: KAITY RED INR: 2.0 - 3.0 CONDITIONS NOT LISTED BELOW 2.5 - 3.5 FOR PROSTHETIC HEART VALVE REPLACEMENT 2.5 - 3.5 RECURRENT THROMBOSIS Performed By: #### B LDCX1 #### [facility] [address] [place] [address] Dr. Eliecer Das PT Coag (PPP) [Time] 10.9 s Normal 9.0-11.6 [facility] Comment on above: Performed By: #### B LDCX1 #### [facility] [address] [place] [address] Dr. Eliecer Das PTTon 01-24-2023 aPTT Coag (Bld) [Time] 26.4 s Normal 22.3-36.2 [facility] Comment on above: Performed By: #### B LDCX1 #### [facility] [address] [place] [address] Dr. Eliecer Das SYMPTOMATIC COVID-19 ANTIGEN on 01-24-2023 EUA Statement SEE BELOW Normal [facility] Comment on above: Result Comment: This test [...] sooner. Performed By: #### B LDCX2 #### [facility] [address] [place] [address] Dr. Eliecer Das SARS-CoV-2 (COVID-19) RNA PELON+probe Ql (Unsp spec) Negative Normal NEGATIVE [facility] Comment on above: Performed By: #### B LDCX2 #### [facility] [address] [place] [address] Dr. Eliecer Das URINE MICROSCOPIC ONLYon BACTERIA TRACE Abnormal NONE SEEN [facility] Comment on above: Performed By: #### B LDCX2 #### [facility] [address] [place] [address] Dr. Eliecer Das Bacteria identified Cx Nom (U) INDICATED Normal [facility] Comment on above: Performed By: #### B LDCX2 #### [facility] [address] [place] [address] Dr. Eliecer Das CAST NONE SEEN Normal NONE SEEN [facility] Comment on above: Performed By: #### B LDCX2 #### [facility] [address] [place] [address] Dr. Eliecer Das Crystals LM Nom (Urine sed) NONE SEEN Normal NONE SEEN [facility] Comment on above: Performed By: #### B LDCX2 #### [facility] [address] [place] [address] Dr. Eliecer Das Epithelial cells LM Ql (Urine sed) FEW Abnormal NONE SEEN /RARE [facility] Comment on above: Performed By: #### B LDCX2 #### [facility] [address] [place] [address] Dr. Eliecer Das MUCOUS NONE SEEN Normal NONE SEEN [facility] Comment on above: Performed By: #### B LDCX2 #### [facility] [address] [place] [address] Dr. Eliecer Das RBC 20-50 Abnormal 0-2 [facility] Comment on above: Performed By: #### B LDCX2 #### [facility] [address] [address] [address] Eliecer Das WBC 5-10 Abnormal NONE SEEN [facility] Comment on above: Performed By: #### B LDCX2 #### [facility] [address] [address] [address] Eliecer Das XR CHEST 1 Von [...] BOBBY RAMACHANDRAN Date: 2023-01-24 11:06 Normal [facility] Urinalysis - AUTOMATEDon Appearance (U) CLEAR [employer] Other Bilirubin Ql (U) Negative [employer] Other Color (U) YELLOW [employer] Other Glucose Ql (U) Negative [employer] Other Hemoglobin Ql (U) TRACE [employer] Other Ketones Ql (U) Negative [employer] Other Leukocyte esterase Test strip Ql (U) Negative [employer] Other Nitrite Ql (U) Negative [employer] Other pH (U) 6.5 [pH] [employer] Other Protein Ql (U) Negative [employer] Other Specific gravity (U) [Rel density] 1.030 [employer] Other Urobilinogen (U) [Mass/Vol] 1.0 mg/dL [facility] [employer] Other [facility] - [facility] [employer] Other Urine Cultureon 01-17-2023 Bacteria identified Cx Nom (U) Reason for Exam Suspected urinary tract infection Urine 15,000 colonies/ml mixed bacterial skin contaminants 2 Days PERFORMED BY: [place] [address] PATHOLOGIST [employer]OVE [employer] CARLOS CHOUDHURY M.D. [facility] Comment on above: Performed By: #### C UU #### [facility] [address] [place] [address] Urine culture routineOrdered By: Brendon Castelan on 01-17-2023 Bacteria identified Cx Nom (U) 2 Days [facility] Blood Urea Nitrogenon 2022 Urea nitrogen [Mass/Vol] 8 mg/dL Normal 7-25 [facility] Comment on above: Order Comment: Reaso n for Exam Dependent edema Performed By: #### C REAT, BUN #### [facility] [address] [place] [address] Creatinineon 01-03-2023 Creatinine [Mass/Vol] 0.77 mg/dL Normal 0.60-1.20 [facility] Comment on above: Order Comment: Reaso n for Exam Dependent edema Performed By: #### C REAT, BUN #### [facility] [address] [place] [address] GFR/1.73 sq M.predicted MDRD (S/P/Bld) [Vol rate/Area] mL/min/{1.73_m2} [facility] Comment on above: Order Comment: Reaso n for Exam Dependent edema Result Comment: PERF ORMED BY: [place] [address] PATHOLOGIST [employer] CARLOS CHOUDHURY M.D. Performed By: #### C REAT, BUN #### [facility] [address] [place] [address] Creatinine [Mass/volume] in Serum or PlasmaOrdered By: Brendon Castelan on 01-03-2023 Creatinine [Mass/Vol] 0.77 mg/dL 0.60-1.20 [facility] No Panel InformationOrdered By: Brendon Castelan on 01-03-2023 Estimated GFR (CKD-EPI) > 60.0 mL/Min [facility] Creatinine Clearance (Chem N/A [facility] Urea nitrogen [Mass/volume] in Serum or PlasmaOrdered By: Brendon Castelan on 01-03-2023 Urea nitrogen [Mass/Vol] 8 mg/dL 7 [facility] Urinalysis - AUTOMATEDon Appearance (U) CLEAR [employer] Other Bilirubin Ql (U) Negative [employer] Other Color (U) YELLOW [employer] Other Glucose Ql (U) Negative [employer] Other Hemoglobin Ql (U) Negative [employer] Other Ketones Ql (U) Negative [employer] Other Leukocyte esterase Test strip Ql (U) TRACE [employer] Other Nitrite Ql (U) Positive [employer] Other pH (U) 6.0 [pH] [employer] Other Protein Ql (U) Negative [employer] Other Specific gravity (U) [Rel density] >=1.030 [employer] Other Urobilinogen (U) [Mass/Vol] 1.0 E.U [employer] Other Urinalysis - AUTOMATED No [email or web address] Other Urine Cultureon 01-03-2023 Bacteria identified Cx Nom (U) ORGANISM: Escherichia coli (O:ESCCOL) [place] Count >100,000 Aerobic DALE Charge (NMIC56) ---- SUSCEPTIBILITY --- ORGANISM: O:ESCCOL ANTIBIOTIC INTERPRETATION DALE Amikacin S <16 Amoxacillin/K Clavulanate I 1616/8 Ampicillin R >16 Ampicillin/Sulbactam R >16 Aztreonam S <4 Cefazolin R >16 Cefepime S <2 Ceftazidime S <1 Ceftazidime/Avibactam S <4 Ceftolozane/Tazobacta m S <2 Ceftriaxone S <1 Cefuroxime S 8 Ciprofloxacin R 1 Ertapenem S <0.5 Gentamicin S <2 Levofloxacin I 1 Meropenem S <1 Meropenem/Vaborbactam S <2 Nitrofurantoin S <32 Piperacillin/Tazobact am S <8 Tetracycline S <4 Tigecycline S <2 Tobramycin S <2 Trimethoprim/Sulfamet hoxazole R >2 S = SUSCEPTIBLE I = [...] RESISTANT TO ALL B-LACTAM DRUGS. PERFORMED BY: [place] [address] PATHOLOGIST [employer] CARLOS CHOUDHURY M.D. [facility] Comment on above: Performed By: #### C UU #### [facility] [address] [place] [address] [place] A1C HEMOGLOBINon 12-06-2022 HbA1c (Bld) [Mass fraction] 6.5 % [employer] Other HbA1c (Bld) [Mass fraction]o n 12-06-2022 A1C HEMOGLOBIN [facility] [employer] Other CT chest wo conon 11-26-2022 CT chest wo [place] [address] CT Scan Report Signed Patient: Salma Quan MR#: [id number] : 1935 Acct:[id number] Age/Sex: 87 / F ADM Date: 11/26/22 Loc: CT Room: Type: [facility] Attending Dr: MITZY Porter APRN Copies to: [...] Cameron Jr., D.OKelly11/26/2022 3:56 PM Dictation Location: [place] [address] Transcribed By: [facility] 11/26/22 1556 Dictated By: Christiano Cameron Jr, DO 11/26/22 1554 Signed By: 11/26/22 1556 [facility] CULTURE URINEon 10-16-2022 CULTURE URINE Isolate 1 Escherichia coli >100,000 cfu/mL of ORGANISM 1 Escherichia coli ANTIBIOTIC M.I.C RX STATUS Ampicillin >=32 R F Ampicillin/Sulbactam >=32 R F Piperacillin/Tazobact am >=128 R F Cefazolin >=64 R F Ceftazidime <=1 S F Ceftriaxone <=1 S F Ertapenem <=0.5 S F Imipenem <=0.25 S F Amikacin <=2 S F Gentamicin <=1 S F Tobramycin <=1 S F Ciprofloxacin <=0.25 S F Levofloxacin 0.5 S F Nitrofurantoin <=16 S F Trimethoprim/Sulfamet hoxazole >=320 R F Normal [facility] Comment on above: Performed By: #### C VDTBH #### [facility] [address] [place] [address] Dr. Eliecer Das POINT OF CARE GLUCOSEon 09-18 Glucose [Mass/Vol] 269 mg/dL Critically high [address] [place] [address] Comment on above: Performed By: #### P OCGLUC #### [facility] [address] [place] [address] Dr. Eliecer Das Glucose [Mass/Vol] 100 mg/dL Normal [address] [place] [address] Comment on above: Performed By: #### B LDCX1 #### [facility] [address] [place] [address] Dr. Eliecer Das POINT OF CARE GLUCOSEon 09-17 Glucose [Mass/Vol] 147 mg/dL Critically high [address] [place] [address] Comment on above: Performed By: #### U RCX #### [facility] [address] [place] [address] Dr. Eliecer Das Glucose [Mass/Vol] 189 mg/dL Critically high [address] [place] [address] Comment on above: Performed By: #### P OCGLUC #### [facility] [address] [place] [address] Dr. Eliecer Das Glucose [Mass/Vol] 421 mg/dL Critically high [address] [place] [address] Comment on above: Performed By: #### B LDCX2 #### [facility] [address] [place] [address] Dr. Eliecer Das Glucose [Mass/Vol] 156 mg/dL Critically high [address] [place] [address] Comment on above: Performed By: #### P OCGLUC #### [facility] [address] [address] [address] Eliecer Das Glucose [Mass/Vol] 111 mg/dL Critically high 74-106 [facility] Comment on above: Performed By: #### B LDCX2 #### [facility] [address] [place] [address] Dr. Eliecer Das Glucose [Mass/Vol] 209 mg/dL Critically high 74-106 [facility] Comment on above: Performed By: #### B LDCX1 #### [facility] [address] [place] [address] Dr. Eliecer Das Glucose [Mass/Vol] 102 mg/dL Normal 74-106 [facility] Comment on above: Performed By: #### U RCX #### [facility] [address] [place] [address] Dr. Eliecer Das CBC AUTO DIFFon 10-13-2022 BASO # 0.1 103/ul Normal 0.0-0.1 [facility] Comment on above: Performed By: #### B LDCX1 #### [facility] [address] [place] [address] Dr. Eliecer Das Basophils/100 WBC (Bld) 1.4 % Normal 0.2-2.0 [facility] Comment on above: Performed By: #### B [id number] #### [facility] [address] [place] [address] Dr. Eliecer Das EO # 0.1 103/ul Normal 0.0-0.7 [facility] Comment on above: Performed By: #### B LDCX1 #### [facility] [address] [place] [address] Dr. Eliecer Das Eosinophils/100 WBC (Bld) 2.8 % Normal 0.9-7.0 [facility] Comment on above: Performed By: #### B LDCX1 #### [facility] [address] [place] [address] Dr. Eliecer Das Erythrocyte distribution width (RBC) [Ratio] 15.4 % Critically high 11.0-15.0 [facility] Comment on above: Performed By: #### B LDCX1 #### [facility] [address] [place] [address] Dr. Eliecer Das Hematocrit (Bld) [Volume fraction] 38.5 % Normal 36.0-48.0 [facility] Comment on above: Performed By: #### B LDCX1 #### [facility] [address] [place] [address] Dr. Eliecer Das Hemoglobin (Bld) [Mass/Vol] 14.1 g/dL Normal 12.0-16.0 [facility] Comment on above: Performed By: #### B LDCX1 #### [facility] [address] [place] [address] Dr. Eliecer Das IG # 0.02 10e3/ul Normal 0.00-0.03 [facility] Comment on above: Performed By: #### B LDCX1 #### [facility] [address] [place] [address] Dr. Eliecer Das IG % 0.4 % Normal 0.0-0.5 [facility] Comment on above: Performed By: #### B LDCX1 #### [facility] [address] [place] [address] Dr. Eliecer Das LYMPH # 1.2 103/ul Normal 1.2-3.8 [facility] Comment on above: Performed By: #### B LDCX1 #### [facility] [address] [place] [address] Dr. Eliecer Das Lymphocytes/100 WBC (Bld) 23.7 % Normal 20.5-60.0 [facility] Comment on above: Performed By: #### B LDCX1 #### [facility] [address] [place] [address] Dr. Eliecer Das MANUAL DIFF REQ NO Normal [facility] Comment on above: Performed By: #### B LDCX1 #### [facility] [address] [place] [address] Dr. Eliecer Das MCH (RBC) [Entitic mass] 33.5 pg Normal 26.7-34.0 [facility] Comment on above: Performed By: #### B LDCX1 #### [facility] [address] [place] [address] Dr. Eliecer Das MCHC (RBC) [Mass/Vol] 36.6 g/dL Critically high 29.9-35.2 [facility] Comment on above: Performed By: #### B LDCX1 #### [facility] [address] [place] [address] Dr. Eliecer Das MCV (RBC) [Entitic vol] 91.4 fL Normal 81.0-99.0 [facility] Comment on above: Performed By: #### B LDCX1 #### [facility] [address] [place] [address] Dr. Eliecer Das MONO # 0.5 103/ul Normal 0.3-0.8 [facility] Comment on above: Performed By: #### B LDCX1 #### [facility] [address] [place] [address] Dr. Eliecer Das Monocytes/100 WBC (Bld) 10.6 % Normal 1.7-12.0 [facility] Comment on above: Performed By: #### B LDCX1 #### [facility] [address] [place] [address] Dr. Eliecer Das NEUT # 3.0 103/ul Normal 1.4-6.5 [facility] Comment on above: Performed By: #### B LDCX1 #### [facility] [address] [place] [address] Dr. Eliecer Das Neutrophils/100 WBC (Bld) 61.1 % Normal 43.0-75.0 [facility] Comment on above: Performed By: #### B LDCX1 #### [facility] [address] [place] [address] Dr. Eliecer Das Platelet mean volume (Bld) [Entitic vol] 9.1 fL Critically low 9.5-13.5 [facility] Comment on above: Performed By: #### B LDCX1 #### [facility] [address] [place] [address] Dr. Eliecer Das PLT 278 103/ul Normal 150-450 [facility] Comment on above: Performed By: #### B LDCX1 #### [facility] [address] [place] [address] Dr. Eliecer Das RBC 4.21 106/ul Normal 4.20-5.40 [facility] Comment on above: Performed By: #### B LDCX1 #### [facility] [address] [place] [address] Dr. Eliecer Das WBC 5.0 103/ul Normal 4.0-11.0 [facility] Comment on above: Performed By: #### B LDCX1 #### [facility] [address] [place] [address] Dr. Eliecer Das Covid-19 PCR (CVDTB)on 09-17 SARS-CoV-2 (COVID-19) RNA PELON+probe Ql (Unsp spec) Not detected Normal NOT DETECTED [facility] Comment on above: Result Comment: When [...] for this test is supported by the Radio Electronics Technician of Health and Human Service's declaration that [...] used). Performed By: #### C VDTBH #### [facility] [address] [place] [address] Dr. Eliecer Das ER URINE PROFILEon 3 Bilirubin Ql (U) Negative Normal NEGATIVE [facility] Comment on above: Performed By: #### P OCGLUC #### [facility] [address] [address] [address] Eliecer Das Clarity (U) CLEAR Normal CLEAR [facility] Comment on above: Performed By: #### P OCGLUC #### [facility] [address] [place] [address] Dr. Eliecer Das Color (U) LT. YELLOW Normal YELLOW [facility] Comment on above: Performed By: #### P OCGLUC #### [facility] [address] [place] [address] Dr. Eliecer Das ERUAHD A micrscopic examination will be performed if indicated. Normal [facility] Comment on above: Performed By: #### P OCGLUC #### [facility] [address] [place] [address] Dr. Eliecer Das Glucose Ql (U) Negative Normal NEGATIVE [facility] Comment on above: Performed By: #### P OCGLUC #### [facility] [address] [place] [address] Dr. Eliecer Das Hemoglobin Ql (U) Negative Normal NEGATIVE [facility] Comment on above: Performed By: #### P OCGLUC #### [facility] [address] [place] [address] Dr. Eliecer Das Ketones Ql (U) Negative Normal NEGATIVE [facility] Comment on above: Performed By: #### P OCGLUC #### [facility] [address] [place] [address] Dr. Eliecer Das LEUKOCYTES Negative Normal NEGATIVE [facility] Comment on above: Performed By: #### P OCGLUC #### [facility] [address] [place] [address] Dr. Eliecer Das Nitrite Ql (U) Positive Abnormal NEGATIVE [facility] Comment on above: Performed By: #### P OCGLUC #### [facility] [address] [place] [address] Dr. Eliecer Das pH (U) 6.5 [pH] Normal 5-9 [facility] Comment on above: Performed By: #### P OCGLUC #### [facility] [address] [place] [address] Dr. Eliecer Das SPEC GRAVITY 1.010 Normal 1.005-<=1.0 25 [facility] Comment on above: Performed By: #### P OCGLUC #### [facility] [address] [place] [address] Dr. Eliecer Das UA PROTEIN Negative Normal NEGATIVE/ TRACE [facility] Comment on above: Performed By: #### P OCGLUC #### [facility] [address] [place] [address] Dr. Eliecer Das UR MICRO IND INDICATED Normal [facility] Comment on above: Performed By: #### P OCGLUC #### [facility] [address] [place] [address] Dr. Eliecer Das Urobilinogen Qn (U) 1.0 {Narinder'U}/dL Normal 0.2 - 1. 0 [facility] Comment on above: Performed By: #### P OCGLUC #### [facility] [address] [place] [address] Dr. Eliecer Das INFLUENZA A AND B AGon 10-[facility] Normal [facility] Comment on above: Result Comment: Nega tive for Flu A protein angiten. Infection due to Flu A cannot be ruled out. Flu A angiten in the sample may be below the detection limit of the test. Performed By: #### B LDCX2 #### [facility] [address] [place] [address] Dr. Eliecer Das INFLUBNEGH SEE BELOW Normal [facility] Comment on above: Result Comment: Nega tive for Flu B protein antigen. Infection due to Flu B cannot be ruled out. Flu B antigen in the sample may be below the detection limit of the test. Performed By: #### B LDCX2 #### [facility] [address] [place] [address] Dr. Eliecer Das INFLUENZA A AG Negative Normal NEGATIVE SEE COMMENT [facility] Comment on above: Performed By: #### B LDCX2 #### [facility] [address] [place] [address] Dr. Eliecer Das INFLUENZA B AG Negative Normal NEGATIVE SEE COMMENT [facility] Comment on above: Performed By: #### B LDCX2 #### [facility] [address] [address] [address] Eliecer Das POINT OF CARE GLUCOSEon 09-17 Glucose [Mass/Vol] 170 mg/dL Critically high 74-106 [facility] Comment on above: Performed By: #### P OCGLUC #### [facility] [address] [place] [address] Dr. Eliecer Das Glucose [Mass/Vol] 94 mg/dL Normal 74-106 [facility] Comment on above: Performed By: #### P OCGLUC #### [facility] [address] [place] [address] Dr. Eliecer Das PROF 14(COMP METB)on 023 Albumin [Mass/Vol] 2.7 g/dL Critically low 3.4-5.0 [facility] Comment on above: Performed By: #### U RCX #### [facility] [address] [place] [address] Dr. Eliecer Das Albumin/Globulin [Mass ratio] 0.6 {ratio} Normal [facility] Comment on above: Performed By: #### U RCX #### [facility] [address] [place] [address] Dr. Eliecer Das ALP [Catalytic activity/Vol] 89 U/L Normal 46-116 [facility] Comment on above: Performed By: #### U RCX #### [facility] [address] [place] [address] Dr. Eliecer Das ALT [Catalytic activity/Vol] 29 U/L Normal 14-59 [facility] Comment on above: Performed By: #### U RCX #### [facility] [address] [place] [address] Dr. Eliecer Das Anion gap [Moles/Vol] 11.8 mmol/L Normal [facility] Comment on above: Performed By: #### U RCX #### [facility] [address] [place] [address] Dr. Eliecer Das AST [Catalytic activity/Vol] 49 U/L Critically high 15-37 [facility] Comment on above: Performed By: #### U RCX #### [facility] [address] [address] [address] Eliecer Das Bilirubin [Mass/Vol] 1.6 mg/dL Critically high 0.2-1.0 [facility] Comment on above: Performed By: #### U RCX #### [facility] [address] [address] [address] Eliecer Das Calcium [Mass/Vol] 9.1 mg/dL Normal 8.5-10.1 [facility] Comment on above: Performed By: #### U RCX #### [facility] [address] [address] [address] Eliecer Das Chloride [Moles/Vol] 109 mmol/L Critically high 98-107 [facility] Comment on above: Performed By: #### U RCX #### [facility] [address] [address] [address] Eliecer Das CO2 [Moles/Vol] 28.4 mmol/L Normal 21.0-32.0 [facility] Comment on above: Performed By: #### U RCX #### [facility] [address] [address] [address] Eliecer Das Creatinine [Mass/Vol] 0.75 mg/dL Normal 0.55-1.02 [facility] Comment on above: Performed By: #### U RCX #### [facility] [address] [address] [address] Eliecer Das EGFR-AF NAMIBIAN >60 Normal >=60 [facility] Comment on above: Performed By: #### U RCX #### [facility] [address] [address] [address] Eliecer Das EGFR-NON AF NAMIBIAN >60 Normal >=60 [facility] Comment on above: Performed By: #### U RCX #### [facility] [address] [place] [address] Dr. Eliecer Das Globulin (S) [Mass/Vol] 4.4 g/dL Normal T [facility] Comment on above: Performed By: #### U RCX #### [facility] [address] [address] [address] Eliecer Das Glucose [Mass/Vol] 109 mg/dL Critically high 74-106 [facility] Comment on above: Performed By: #### U RCX #### [facility] [address] [address] [address] Eliecer Das Potassium [Moles/Vol] 4.2 mmol/L Normal 3.5-5.1 [facility] Comment on above: Performed By: #### U RCX #### [facility] [address] [address] [address] Eliecer Das Protein [Mass/Vol] 7.1 g/dL Normal 6.4-8.2 [facility] Comment on above: Performed By: #### U RCX #### [facility] [address] [address] [address] Eliecer Das Sodium [Moles/Vol] 145 mmol/L Normal 136-145 [facility] Comment on above: Performed By: #### U RCX #### [facility] [address] [address] [address] Eliecer Das Urea nitrogen [Mass/Vol] 11.0 mg/dL Normal 7.0-18.0 [facility] Comment on above: Performed By: #### U RCX #### [facility] [address] [address] [address] Eliecer Das Urea nitrogen/Creatinine [Mass ratio] 14.7 mg/mg Normal [facility] Comment on above: Performed By: #### U RCX #### [facility] [address] [address] [address] Eliecer Das TROPONIN, HIGH SENSITIVITYon 10-13-2022 HSTROP 10.7 pg/mL Normal 4.0-51.3 [facility] Comment on above: Result Comment: CUT- OFF POINTS HAVE BEEN ESTABLISHED BASED ON THE FOURTH UNIVERSAL DEFINITIONS OF MYOCARDIAL INFARCTION. THE UPPER REFERENCE LIMIT (URL) OF TROPONIN, DEFINED THE 99TH PERCENTILE OF cTnI DISTRIBUTION IN A REFERENCE POPULATION, HAS BEEN CONFIRMED THE DECISION THRESHOLD FOR MS DIAGNOSIS. Performed By: #### U RCX #### [facility] [address] [place] [address] Dr. Eliecer Das URINE MICROSCOPIC ONLYon BACTERIA MODERATE Abnormal NONE SEEN [facility] Comment on above: Performed By: #### P OCGLUC #### [facility] [address] [place] [address] Dr. Eliecer Das Bacteria identified Cx Nom (U) INDICATED Normal [facility] Comment on above: Performed By: #### P OCGLUC #### [facility] [address] [place] [address] Dr. Eliecer Das CAST NONE SEEN Normal NONE SEEN [facility] Comment on above: Performed By: #### P OCGLUC #### [facility] [address] [place] [address] Dr. Eliecer Das Crystals LM Nom (Urine sed) NONE SEEN Normal NONE SEEN [facility] Comment on above: Performed By: #### P OCGLUC #### [facility] [address] [place] [address] Dr. Eliecer Das Epithelial cells LM Ql (Urine sed) FEW Abnormal NONE SEEN /RARE [facility] Comment on above: Performed By: #### P OCGLUC #### [facility] [address] [place] [address] Dr. Eliecer Das MUCOUS NONE SEEN Normal NONE SEEN [facility] Comment on above: Performed By: #### P OCGLUC #### [facility] [address] [place] [address] Dr. Eliecer Das RBC 0-2 Normal 0-2 [facility] Comment on above: Performed By: #### P OCGLUC #### [facility] [address] [place] [address] Dr. Eliecer Das WBC 5-10 Abnormal NONE SEEN [facility] Comment on above: Performed By: #### P OCGLUC #### [facility] [address] [place] [address] Dr. Eliecer Das XR CHEST 1 Von 10-13-2022 XR CHEST 1 V EXAM: XR CHEST 1 V HISTORY: COUGH COMPARISON: 03/01/2022 TECHNIQUE: Single view of the chest. FINDINGS: Left basilar opacities obstructing the left hemidiaphragm. The heart is enlarged. No right-sided pleural effusion. No pneumothorax. Atherosclerotic calcifications of the aorta. IMPRESSION: Left basilar atelectasis/consolida tion. Electronically authenticated by: MARCO LEROY Date: 2022-10-13 12:34 Normal [facility] A1C HEMOGLOBINon 10-01-2022 HbA1c (Bld) [Mass fraction] 5.4 % [facility] Other HbA1c (Bld) [Mass fraction]o n 10-01-2022 A1C HEMOGLOBIN [employer] Other Urinalysis - AUTOMATEDon Appearance (U) CLEAR [employer] Other Bilirubin Ql (U) SMALL [employer] Other Color (U) YELLOW [facility] Other Glucose Ql (U) Negative [employer] Other Hemoglobin Ql (U) LARGE [employer] Other Ketones Ql (U) TRACE [employer] Other Leukocyte esterase Test strip Ql (U) TRACE [facility] Other Nitrite Ql (U) Positive [employer] Other pH (U) 5.5 [pH] [facility] Other Protein Ql (U) Negative [employer] Other Specific gravity (U) [Rel density] >=1.030 [facility] Other Urobilinogen (U) [Mass/Vol] 1.0 mg/dL [facility] Other Urinalysis - AUTOMATED No rt [employer] Other US thyroidon 06-15-2022 thyroid [facility] Main [place] [id number] Ultrasound Report Signed Patient: Salma Quan MR#: [id number] : 1935 Acct:[id number] Age/Sex: 87 / F ADM Date: 06/15/22 Loc: RT Room: Type: [facility] CLI Attending Dr: Brendon Castelan MD Ordering Provider: Brendon Castelan MD Date of Service: 06/15/22 US/US thyroid: Enlarged thyroid Copies to: Brendon Castelan MD Thyroid ultrasound HISTORY:Enlarged thyroid COMPARISON:None The [...] Franki Chris M.D.06/15/2022 4:03 PM Dictation Location: [place] [address] Tech: Cindy Marshal Transcribed By: BERNARDO 06/15/22 1603 Dictated By: Franki Chris DO 06/15/22 1601 Signed By: 06/15/22 1603 [facility] CT chest wo [facility] 06-08-2022 CT chest wo [facility] [address] CT Scan Report Signed Patient: Salma Quan MR#: [id number] : 1935 Acct:[id number] Age/Sex: 87 / F ADM Date: 06/08/22 Loc: CT Room: Type: [facility] CLI Attending Dr: Brendon Castelan MD Copies to: Brendon Castelan MD Ordering Provider: Brendon Castelan MD Date of Service: 06/08/22 CT/CT chest wo con: Cough;Edema extremities;Cardiomeg maryjo CT CHEST WITHOUT IV CONTRAST: CLINICAL HISTORY: [...] Cameron Jr., D.OKelly06/08/2022 3:17 PM Dictation Location: [place] [address] Transcribed By: [facility] 06/08/22 1517 Dictated By: Christiano Cameron Jr, DO 06/08/22 1514 Signed By: 06/08/22 151 Normal [facility] SARS-CoV-2 (COVID-19) RNA PELON+probe Ql (Unsp spec) cough. History of COVID [facility] [employer] Other CT chest wo con [facility] [employer] Other CT chest wo con [facility] Main [facility] [employer] Other CT chest wo con [address] [facility] No [facility] [employer] [place] [address] [facility] [employer] Other CT chest wo con CT Scan Report [facility] [employer] Other CT chest wo con Signed [facility] [employer] Other CT chest wo con Patient: Salma Quan MR#: [id number] [facility] Other CT chest wo con [address] chest wo con : 1935 Acct:[id number] [facility] chest wo con Age/Sex: 87 / F ADM Date: 06/08/[address] chest wo con Loc: CT Room: Type: REG CLI [facility] Other CT chest wo con Attending Dr: Brendon Castelan MD [facility] Other CT chest wo con Copies to: Brendon Castelan MD [facility] Other CT chest wo con Ordering Provider: Brendon Castelan MD [facility] Other CT chest wo con Date of Service: 06/08/[address] chest wo con CT/CT chest wo con: Cough;Edema extremities;Cardiomeg maryjo [facility] chest wo con CT CHEST WITHOUT IV CONTRAST: [facility] Other CT chest wo con CLINICAL HISTORY: Shortness of breath with exertion. Bilateral lower extremity swelling with [facility] Other CT chest wo con COMPARISON: Chest 05/26/[address] chest wo con TECHNIQUE: Spiral images were obtained through the chest without IV contrast. This CT exam was [facility] Other CT chest wo con performed using one or more following dose reduction techniques: Automated exposure control, [facility] Other CT chest wo con adjustment of the mA and/or kV according to patient size, or use of iterative reconstruction [facility] Other CT chest wo con technique. [employer] Other CT chest wo con FINDINGS: [employer] Other CT chest wo con Mediastinum:Lobular appearing thyroid gland with a punctate calcification. Thoracic aorta appears [facility] Other CT chest wo con normal in caliber. Pulmonary trunk is nondilated. No pericardial effusion. No lymphadenopathy. [facility] Other CT chest wo con The esophagus is grossly unremarkable. [facility] [address] chest wo con Lungs:Peripheral fibrotic changes without honeycombing. No focal consolidation, pneumothorax or [facility] Other [address] chest wo con pleural effusion. Trachea and distal airways appear patent. No suspicious lung nodule. [facility] Other CT chest wo con Abd:No acute findings. [facility] Other CT chest wo con Soft tissues/Bones: Visualized soft tissues surrounding the chest wall demonstrate no acute [facility] Other CT chest wo con findings. Osseous structures demonstrate degenerative change. [facility] Other CT chest wo con CT/CT chest wo con [facility] Other CT chest wo con IMPRESSION: [employer] Other CT chest wo con Peripheral fibrotic changes without honeycombing. No acute process is seen. [facility] Other CT chest wo con Lobular appearing thyroid gland with punctate calcification. This can be further evaluated by [facility] Other CT chest wo con ultrasound. [employer] Other CT chest wo con Impression dictated by: Christiano Cameron Jr., D.OKelly06/08/2022 3:[address] [facility] chest wo con Dictation Location: [place] [address] chest wo con Transcribed By: BERNARDO 06/08/[address] chest wo con Dictated By: Christiano Cameron Jr, DO 06/08/[address] chest wo con Signed By: [facility] [employer] Other CT chest wo con 06/08/22 2541 [place] [employer] Other [facility] echo transthoracicon ECH echo transthoracic [facility] Main [place] [address] [place] [address] Echocardiogram Signed Patient: Salma Quan MR#: [id number] 468 : 1935 Acct:[id number] Age/Sex: 87 / F ADM Date: 06/08/22 Loc: CT Room: Type: [facility] Attending Dr: Brendon Castelan MD Ordering Provider: Brendon Castelan MD Date of Service: 06/08/22/ ECH/ECH echo [...] mmHg Transcribed By: SCV Performed At: 06/08/22 6901 Signed By: Matthew Martinez MD 06/08/22 3479 [facility] A1C HEMOGLOBINon 06-07-2022 HbA1c (Bld) [Mass fraction] 5.4 % [facility] Other HbA1c (Bld) [Mass fraction]o n 06-07-2022 A1C HEMOGLOBIN [employer] Other Albumin [Mass/volume] in Ser um or PlasmaOrdered By: Brendon Castelan on 05-17-2022 Albumin [Mass/Vol] 3.0 g/dL 3.2-5.5 [facility] Basophils Auto (Bld) [#/Vol] Ordered By: Brendon Castelan on 05-17-2022 Basophils (Bld) [#/Vol] 0.1 10*3/uL 0.0-0.2 [facility] Basophils/100 WBC Auto (Bld) Ordered By: Brendon Castelan on 05-17-2022 Basophils/100 WBC (Bld) 1.2 % . [facility] Blood hemoglobin measurement (mass/volume)Ordered By: Brendon Castelan on 05-17-2022 Hemoglobin (Bld) [Mass/Vol] 14.4 g/dL 11.8-15.4 [facility] Blood leukocytes automated c ount (number/volume)Ordered By: Brendon Castelan on 05-17-2022 WBC (Bld) [#/Vol] 6.3 10*3/uL 4.5-11.0 [facility] Creatinine and Glomerular fi ltration rate.predicted panel (S/P/Bld)Ordered By: Brendon Castelan on 05-17-2022 Creatinine [Mass/Vol] 0.90 mg/dL 0.44-1.03 [facility] Eosinophils Auto (Bld) [#/Vo l]Ordered By: Brendon Castelan on 05-17-2022 Eosinophils (Bld) [#/Vol] 0.2 10*3/uL 0.0-0.45 [facility] Eosinophils/100 WBC Auto (Bl d)Ordered By: Brendon Castelan on 05-17-2022 Eosinophils/100 WBC (Bld) 3.5 % . [facility] Erythrocyte distribution wid th Auto (RBC) [Ratio]Ordered By: Brendon Castelan on 05-17-2022 Erythrocyte distribution width (RBC) [Ratio] 15.4 % 11.9-15.3 [facility] Estimated glomerular filtrat ion rate (GFR) non- AmericanOrdered By: Brendon Castelan on 05-17-2022 GFR/1.73 sq M.predicted among non-blacks MDRD (S/P/Bld) [Vol rate/Area] 60 mL/Min [facility] Globulin Calc (S) [Mass/Vol] Ordered By: Brendon Castelan on 05-17-2022 Globulin (S) [Mass/Vol] 3.7 g/dL [facility] Hematocrit Auto (Bld) [Volum e fraction]Ordered By: Brendon Castelan on 05-17-2022 Hematocrit (Bld) [Volume fraction] 43.9 % 34.0-46.4 [facility] Laboratory - Hematology and Cell countsOrdered By: Brendon Castelan on 05-17-2022 Nucleated RBC/100 WBC (Bld) [Ratio] 0.1 % 0-0.5 [facility] Lymphocytes Auto (Bld) [#/Vo l]Ordered By: Brendon Castelan on 05-17-2022 Lymphocytes (Bld) [#/Vol] 1.9 10*3/uL 1.00-4.8 [facility] Lymphocytes/100 WBC Auto (Bl d)Ordered By: Brendon Castelan on 05-17-2022 Lymphocytes/100 WBC (Bld) 29.5 % . [facility] MCH Auto (RBC) [Entitic mass ]Ordered By: Brendon Castelan on 05-17-2022 MCH (RBC) [Entitic mass] 30.3 pg 24.7-34.3 [facility] MCHC Auto (RBC) [Mass/Vol]Or dered By: Brendon Castelan on 05-17-2022 MCHC (RBC) [Mass/Vol] 32.8 g/dL 32.0-35.0 [facility] MCV Auto (RBC) [Entitic vol] Ordered By: Brendon Castelan on 05-17-2022 MCV (RBC) [Entitic vol] 92.4 fL 80-100 [facility] Monocytes Auto (Bld) [#/Vol] Ordered By: Brendon Castelan on 05-17-2022 Monocytes (Bld) [#/Vol] 0.7 10*3/uL 0.0-0.8 [facility] Monocytes/100 WBC Auto (Bld) Ordered By: Brendon Castelan on 05-17-2022 Monocytes/100 WBC (Bld) 10.8 % . [facility] Neutrophils Auto (Bld) [#/Vo l]Ordered By: Brendon Castelan on 05-17-2022 Neutrophils (Bld) [#/Vol] 3.5 10*3/uL 1.8-7.7 [facility] Neutrophils/100 WBC Auto (Bl d)Ordered By: Brendon Castelan on 05-17-2022 Neutrophils/100 WBC (Bld) 55.0 % . [facility] No Panel InformationOrdered By: Brendon Castelan on 05-17-2022 Estimated GFR () > 60 mL/Min [facility] Comment on above: GFR estimated refere nce range: According to KDOQI guidelines, <60 ml/min/1.73m2 is sufficient to diagnose a patient with chronic kidney disease. Pharmacy Creatinine Clearance (Chem N/A [facility] Platelet mean volume Auto (B ld) [Entitic vol]Ordered By: Brendon Castelan on 05-17-2022 Platelet mean volume (Bld) [Entitic vol] 8.1 fL 6.3-10.7 [facility] Platelets Auto (Bld) [#/Vol] Ordered By: Brendon Castelan on 05-17-2022 Platelets (Bld) [#/Vol] 371 10*3/uL 150-450 [facility] Protein [Mass/volume] in Ser um or PlasmaOrdered By: Brendon Castelan on 05-17-2022 Protein [Mass/Vol] 6.7 g/dL 6.1-7.9 [facility] RBC Auto (Bld) [#/Vol]Ordere d By: Brendon Castelan on 05-17-2022 RBC (Bld) [#/Vol] 4.75 10*6/uL 3.60-5.00 [facility] Serum or plasma alanine manuel otransferase measurement without P-5'-P (enzymatic activiOrdered By: Brendon Castelan on 05-17-2022 ALT No additional P-5'-P [Catalytic activity/Vol] 26 U/L 10-60 [facility] Serum or plasma albumin/glob ulin mass ratioOrdered By: Brendon Castelan on 05-17-2022 Albumin/Globulin [Mass ratio] 0.8 {ratio} [facility] Serum or plasma alkaline marsha sphatase measurement (enzymatic activity/volume)Ordered By: Brendon Castelan on 05-17-2022 ALP [Catalytic activity/Vol] 67 U/L 32-92 [facility] Serum or plasma anion gap de terminationOrdered By: Brendon Castelan on 05-17-2022 Anion gap [Moles/Vol] 11.1 mmol/L 6.0-15.0 [facility] Serum or plasma aspartate am inotransferase measurement (enzymatic activity/volume)Ordered By: Brendon Castelan on 05-17-2022 AST [Catalytic activity/Vol] 43 U/L 10-42 [facility] Serum or plasma calcium faviola urement (mass/volume)Ordered By: Brendon Castelan on 05-17-2022 Calcium [Mass/Vol] 9.8 mg/dL 8.2-10.2 [facility] Serum or plasma chloride jerome surement (moles/volume)Ordered By: Brendon Castelan on 05-17-2022 Chloride [Moles/Vol] 103 mmol/L 95-114 [facility] Serum or plasma glucose faviola urement (mass/volume)Ordered By: Brendon Castelan on 05-17-2022 Glucose [Mass/Vol] 140 mg/dL 70-100 [facility] Comment on above: ADA recommended refe rence range Random Glucose Reference Range is dependent on time and content of last meal. Glucose of more than 200 mg/dL in a nonstressed, ambulatory subject supports the diagnosis of Diabetes Mellitus. Serum or plasma potassium me asurement (moles/volume)Ordered By: Brendon Castelan on 05-17-2022 Potassium [Moles/Vol] 4.5 mmol/L 3.5-5.1 [facility] Serum or plasma sodium measu rement (moles/volume)Ordered By: Brendon Castelan on 05-17-2022 Sodium [Moles/Vol] 139 mmol/L 136-146 [facility] Serum or plasma total biliru bin measurement (mass/volume)Ordered By: Brendon Castelan on 05-17-2022 Bilirubin [Mass/Vol] 1.5 mg/dL 0.3-1.2 [facility] Comment on above: Samples from patient s who have taken Naproxen have shown spurious elevation in Total Bilirubin levels. A metabolite of Naproxen, O-desmethylnaproxen, has been shown to interfere with the Jendrsilva-Carlosf method for measuring Total Bilirubin. Serum or plasma total carbon dioxide measurement (moles/volume)Ordered By: Brendon Castelan on 05-17-2022 CO2 [Moles/Vol] 29.4 mmol/L 22.0-30.0 [facility] Serum or plasma urea nitroge n measurement (mass/volume)Ordered By: Brendon Castelan on 05-17-2022 Urea nitrogen [Mass/Vol] 12 mg/dL 06-08 [facility] CBC AUTO DIFFon 03-02-2022 BASO # 0.1 103/ul Normal 0.0-0.1 [facility] Comment on above: Performed By: #### U RCX #### [facility] [address] [address] [address] Eliecer Das Basophils/100 WBC (Bld) 0.8 % Normal 0.2-2.0 [facility] Comment on above: Performed By: #### U RCX #### [facility] [address] [address] [address] Eliecer Das EO # 0.0 103/ul Normal 0.0-0.7 [facility] Comment on above: Performed By: #### U RCX #### [facility] [address] [address] [address] Eliecer Das Eosinophils/100 WBC (Bld) 0.1 % Critically low 0.9-7.0 [facility] Comment on above: Performed By: #### U RCX #### [facility] [address] [address] [address] Eliecer Das Erythrocyte distribution width (RBC) [Ratio] 13.4 % Normal 11.0-15.0 [facility] Comment on above: Performed By: #### U RCX #### [facility] [address] [address] [address] Eliecer Das Hematocrit (Bld) [Volume fraction] 42.9 % Normal 36.0-48.0 [facility] Comment on above: Performed By: #### U RCX #### [facility] [address] [place] [address] Dr. Eliecer Das Hemoglobin (Bld) [Mass/Vol] 14.3 g/dL Normal 12.0-16.0 [facility] Comment on above: Performed By: #### U RCX #### [facility] [address] [place] [address] Dr. Eliecer Das IG # 0.07 10e3/ul Critically high 0.00-0.03 [facility] Comment on above: Performed By: #### U RCX #### [facility] [address] [place] [address] Dr. Eliecer Das IG % 0.8 % Critically high 0.0-0.5 [facility] Comment on above: Performed By: #### U RCX #### [facility] [address] [place] [address] Dr. Eliecer Das LYMPH # 1.3 103/ul Normal 1.2-3.8 [facility] Comment on above: Performed By: #### U RCX #### [facility] [address] [place] [address] Dr. Eliecer Das Lymphocytes/100 WBC (Bld) 14.4 % Critically low 20.5-60.0 [facility] Comment on above: Performed By: #### U RCX #### [facility] [address] [place] [address] Dr. Eliecer Das MANUAL DIFF REQ NO Normal [facility] Comment on above: Performed By: #### U RCX #### [facility] [address] [place] [address] Dr. Eliecer Das MCH (RBC) [Entitic mass] 31.2 pg Normal 26.7-34.0 [facility] Comment on above: Performed By: #### U RCX #### [facility] [address] [place] [address] Dr. Eliecer Das MCHC (RBC) [Mass/Vol] 33.3 g/dL Normal 29.9-35.2 [facility] Comment on above: Performed By: #### U RCX #### [facility] [address] [place] [address] Dr. Eliecer Das MCV (RBC) [Entitic vol] 93.7 fL Normal 81.0-99.0 [facility] Comment on above: Performed By: #### U RCX #### [facility] [address] [place] [address] Dr. Eliecer Das MONO # 1.0 103/ul Critically high 0.3-0.8 [facility] Comment on above: Performed By: #### U RCX #### [facility] [address] [place] [address] Dr. Eliecer Das Monocytes/100 WBC (Bld) 10.4 % Normal 1.7-12.0 [facility] Comment on above: Performed By: #### U RCX #### [facility] [address] [place] [address] Dr. Eliecer Dsa NEUT # 6.8 103/ul Critically high 1.4-6.5 [facility] Comment on above: Performed By: #### U RCX #### [facility] [address] [place] [address] Dr. Eliecer Das Neutrophils/100 WBC (Bld) 73.5 % Normal 43.0-75.0 [facility] Comment on above: Performed By: #### U RCX #### [facility] [address] [place] [address] Dr. Eliecer Das Platelet mean volume (Bld) [Entitic vol] 9.0 fL Critically low 9.5-13.5 [facility] Comment on above: Performed By: #### U RCX #### [facility] [address] [place] [address] Dr. Eliecer Das PLT 230 103/ul Normal 150-450 [facility] Comment on above: Performed By: #### U RCX #### [facility] [address] [place] [address] Dr. Eliecer Das RBC 4.58 106/ul Normal 4.20-5.40 [facility] Comment on above: Performed By: #### U RCX #### [facility] [address] [place] [address] Dr. Eliecer Das WBC 9.2 103/ul Normal 4.0-11.0 [facility] Comment on above: Performed By: #### U RCX #### [facility] [address] [place] [address] Dr. Eliecer Das CULTURE BLOODon 03-02-2022 Microscopic examination of blood, culture Culture Observations: No growth at 5 days. Normal [facility] Comment on above: Performed By: #### B LDCX1 #### [facility] [address] [place] [address] Dr. Eliecer Das LACTATE/LACTIC ACIDon 2021 Lactate [Moles/Vol] 2.1 mmol/L Critically high 0.4-1.9 [facility] Comment on above: Performed By: #### P OCGLUC #### [facility] [address] [place] [address] Dr. Eliecer Das Lactate [Moles/Vol] 2.3 mmol/L Critically high 0.4-1.9 [facility] Comment on above: Performed By: #### U RCX #### [facility] [address] [place] [address] Dr. Eliecer Das Lactate [Moles/Vol] 2.2 mmol/L Critically high 0.4-1.9 [facility] Comment on above: Performed By: #### B LDCX1 #### [facility] [address] [place] [address] Dr. Eliecer Das POINT OF CARE GLUCOSEon 02-14 Glucose [Mass/Vol] 123 mg/dL Critically high 74-106 [facility] Comment on above: Performed By: #### P OCGLUC #### [facility] [address] [place] [address] Dr. Eliecer Das Glucose [Mass/Vol] 114 mg/dL Critically high 74-106 [facility] Comment on above: Performed By: #### B LDCX1 #### [facility] [address] [address] [address] Eliecer Das PROF 14(COMP METB)on 022 Albumin [Mass/Vol] 2.6 g/dL Critically low 3.4-5.0 [facility] Comment on above: Performed By: #### B LDCX2 #### [facility] [address] [place] [address] Dr. Eliecer Das Albumin/Globulin [Mass ratio] 0.6 {ratio} Normal [facility] Comment on above: Performed By: #### B LDCX2 #### [facility] [address] [place] [address] Dr. Eliecer Das ALP [Catalytic activity/Vol] 67 U/L Normal 46-116 [facility] Comment on above: Performed By: #### B LDCX2 #### [facility] [address] [place] [address] Dr. Eliecer Das ALT [Catalytic activity/Vol] 37 U/L Normal 14-59 [facility] Comment on above: Performed By: #### B LDCX2 #### [facility] [address] [place] [address] Dr. Eliecer Das Anion gap [Moles/Vol] 10.8 mmol/L Normal [facility] Comment on above: Performed By: #### B LDCX2 #### [facility] [address] [place] [address] Dr. Eliecer Das AST [Catalytic activity/Vol] 60 U/L Critically high 15-37 [facility] Comment on above: Performed By: #### B LDCX2 #### [facility] [address] [place] [address] Dr. Eliecer Das Bilirubin [Mass/Vol] 1.6 mg/dL Critically high 0.2-1.0 [facility] Comment on above: Performed By: #### B LDCX2 #### [facility] [address] [place] [address] Dr. Eliecer Das Calcium [Mass/Vol] 8.5 mg/dL Normal 8.5-10.1 [facility] Comment on above: Performed By: #### B LDCX2 #### [facility] [address] [address] [address] Eliecer Das Chloride [Moles/Vol] 103 mmol/L Normal 98-107 [facility] Comment on above: Performed By: #### B LDCX2 #### [facility] [address] [address] [address] Eliecer Das CO2 [Moles/Vol] 26.7 mmol/L Normal 21.0-32.0 [facility] Comment on above: Performed By: #### B LDCX2 #### [facility] [address] [place] [address] Dr. Eliecer Das Creatinine [Mass/Vol] 0.83 mg/dL Normal 0.55-1.02 [facility] Comment on above: Performed By: #### B LDCX2 #### [facility] [address] [place] [address] Dr. Eliecer Das EGFR-AF NAMIBIAN >60 Normal >=60 [facility] Comment on above: Performed By: #### B LDCX2 #### [facility] [address] [place] [address] Dr. Eliecer Das EGFR-NON AF NAMIBIAN >60 Normal >=60 [facility] Comment on above: Performed By: #### B LDCX2 #### [facility] [address] [place] [address] Dr. Eliecer Das Globulin (S) [Mass/Vol] 4.4 g/dL Normal [facility] Comment on above: Performed By: #### B LDCX2 #### [facility] [address] [place] [address] Dr. Eliecer Das Glucose [Mass/Vol] 122 mg/dL Critically high 74-106 [facility] Comment on above: Performed By: #### B LDCX2 #### [facility] [address] [place] [address] Dr. Eliecer Das Potassium [Moles/Vol] 4.5 mmol/L Normal 3.5-5.1 [facility] Comment on above: Performed By: #### B LDCX2 #### [facility] [address] [address] [address] Eliecer Das Protein [Mass/Vol] 7.0 g/dL Normal 6.4-8.2 [facility] Comment on above: Performed By: #### B LDCX2 #### [facility] [address] [address] [address] Eliecer Das Sodium [Moles/Vol] 136 mmol/L Normal 136-145 [facility] Comment on above: Performed By: #### B LDCX2 #### [facility] [address] [address] [address] Eliecer Das Urea nitrogen [Mass/Vol] 12.0 mg/dL Normal 7.0-18.0 [facility] Comment on above: Performed By: #### B LDCX2 #### [facility] [address] [place] [address] Dr. Eliecer Das Urea nitrogen/Creatinine [Mass ratio] 14.5 mg/mg Normal [facility] Comment on above: Performed By: #### B LDCX2 #### [facility] [address] [address] [address] Eliecer Das Albumin [Mass/Vol] 2.7 g/dL Critically low 3.4-5.0 [facility] Comment on above: Performed By: #### P OCGLUC #### [facility] [address] [place] [address] Dr. Eliecer Das Albumin/Globulin [Mass ratio] 0.6 {ratio} Normal [facility] Comment on above: Performed By: #### P OCGLUC #### [facility] [address] [address] [address] Eliecer Das ALP [Catalytic activity/Vol] 69 U/L Normal 46-116 [facility] Comment on above: Performed By: #### P OCGLUC #### [facility] [address] [address] [address] Eliecer Das ALT [Catalytic activity/Vol] 45 U/L Normal 14-59 [facility] Comment on above: Performed By: #### P OCGLUC #### [facility] [address] [address] [address] Eliecer Das Anion gap [Moles/Vol] 13.5 mmol/L Normal [facility] Comment on above: Performed By: #### P OCGLUC #### [facility] [address] [address] [address] Eliecer Das AST [Catalytic activity/Vol] 64 U/L Critically high 15-37 [facility] Comment on above: Performed By: #### P OCGLUC #### [facility] [address] [address] [address] Eliecer Das Bilirubin [Mass/Vol] 1.6 mg/dL Critically high 0.2-1.0 [facility] Comment on above: Performed By: #### P OCGLUC #### [facility] [address] [address] [address] Eliecer Das Calcium [Mass/Vol] 9.0 mg/dL Normal 8.5-10.1 [facility] Comment on above: Performed By: #### P OCGLUC #### [facility] [address] [address] [address] Eliecer Das Chloride [Moles/Vol] 101 mmol/L Normal 98-107 [facility] Comment on above: Performed By: #### P OCGLUC #### [facility] [address] [address] [address] Eliecer Das CO2 [Moles/Vol] 25.1 mmol/L Normal 21.0-32.0 [facility] Comment on above: Performed By: #### P OCGLUC #### [facility] [address] [address] [address] Eliecer Das Creatinine [Mass/Vol] 0.89 mg/dL Normal 0.55-1.02 [facility] Comment on above: Performed By: #### P OCGLUC #### [facility] [address] [address] [address] Eliecer Das EGFR-AF NAMIBIAN >60 Normal >=60 [facility] Comment on above: Performed By: #### P OCGLUC #### [facility] [address] [address] [address] Eliecer Das EGFR-NON AF NAMIBIAN 60 mL/min/1.73m2 Normal >=60 [facility] Comment on above: Performed By: #### P OCGLUC #### [facility] [address] [address] [address] Eliecer Das Globulin (S) [Mass/Vol] 4.4 g/dL Normal [facility] Comment on above: Performed By: #### P OCGLUC #### [facility] [address] [address] [address] Eliecer Das Glucose [Mass/Vol] 132 mg/dL Critically high 74-106 [facility] Comment on above: Performed By: #### P OCGLUC #### [facility] [address] [address] [address] Eliecer Das Potassium [Moles/Vol] 4.6 mmol/L Normal 3.5-5.1 [facility] Comment on above: Performed By: #### P OCGLUC #### [facility] [address] [address] [address] Eliecer Das Protein [Mass/Vol] 7.1 g/dL Normal 6.4-8.2 [facility] Comment on above: Performed By: #### P OCGLUC #### [facility] [address] [address] [address] Eliecer Das Sodium [Moles/Vol] 135 mmol/L Critically low 136-145 [facility] Comment on above: Performed By: #### P OCGLUC #### [facility] [address] [address] [address] Eliecer Das Urea nitrogen [Mass/Vol] 12.0 mg/dL Normal 7.0-18.0 [facility] Comment on above: Performed By: #### P OCGLUC #### [facility] [address] [address] [address] Eliecer Das Urea nitrogen/Creatinine [Mass ratio] 13.5 mg/mg Normal [facility] Comment on above: Performed By: #### P OCGLUC #### [facility] [address] [address] [address] Eliecer Das RESPIRATORY PANEL PLUSon Adenovirus Not detected Normal NOT DETECTED [facility] Comment on above: Performed By: #### C VDTBH #### [facility] [address] [place] [address] Dr. Eliecer Shipman Parapertusis Not detected Normal NOT DETECTED [facility] Comment on above: Performed By: #### C VDTBH #### [facility] [address] [place] [address] Dr. Eliecer Shipman Pertussis Not detected Normal NOT DETECTED [facility] Comment on above: Performed By: #### C VDTBH #### [facility] [address] [place] [address] Dr. Eliecer Das Chlamydia Pneumoniae Not detected Normal NOT DETECTED [facility] Comment on above: Performed By: #### C VDTBH #### [facility] [address] [place] [address] Dr. Eliecer Das Coronavirus 229E Not detected Normal NOT DETECTED [facility] Comment on above: Performed By: #### C VDTBH #### [facility] [address] [place] [address] Dr. Eliecer Das Coronavirus HKU1 Not detected Normal NOT DETECTED [facility] Comment on above: Performed By: #### C VDTBH #### [facility] [address] [place] [address] Dr. Eliecer Das Coronavirus NL63 Not detected Normal NOT DETECTED [facility] Comment on above: Performed By: #### C VDTBH #### [facility] [address] [place] [address] Dr. Eliecer Das Coronavirus OC43 Not detected Normal NOT DETECTED [facility] Comment on above: Performed By: #### C VDTBH #### [facility] [address] [place] [address] Dr. Eliecer Das Influenza A H1 2009 Not detected Normal NOT DETECTED [facility] Comment on above: Performed By: #### C VDTBH #### [facility] [address] [place] [address] Dr. Eliecer Das Influenza A H3 Not detected Normal NOT DETECTED [facility] Comment on above: Performed By: #### C VDTBH #### [facility] [address] [place] [address] Dr. Eliecer Das Influenza B Not detected Normal NOT DETECTED [facility] Comment on above: Performed By: #### C VDTBH #### [facility] [address] [place] [address] Dr. Eliecer Das Metapneumovirus Not detected Normal NOT DETECTED [facility] Comment on above: Performed By: #### C VDTBH #### [facility] [address] [place] [address] Dr. Eliecer Das Mycoplas. Pneumoniae Not detected Normal NOT DETECTED [facility] Comment on above: Performed By: #### C VDTBH #### [facility] [address] [place] [address] Dr. Eliecer Das Parainfluenza 1 Not detected Normal NOT DETECTED [facility] Comment on above: Performed By: #### C VDTBH #### [facility] [address] [place] [address] Dr. Eliecer Das Parainfluenza 2 Not detected Normal NOT DETECTED [facility] Comment on above: Performed By: #### C VDTBH #### [facility] [address] [place] [address] Dr. Eliecer Das Parainfluenza 3 Detected Abnormal NOT DETECTED [facility] Comment on above: Performed By: #### C VDTBH #### [facility] [address] [place] [address] Dr. Eliecer Das Parainfluenza 4 Not detected Normal NOT DETECTED [facility] Comment on above: Performed By: #### C VDTBH #### [facility] [address] [place] [address] Dr. Eliecer Das Rhino/Enterovirus Not detected Normal NOT DETECTED [facility] Comment on above: Performed By: #### C VDTBH #### [facility] [address] [place] [address] Dr. Eliecer Das RP2 Header 1 RESPIRATORY PANEL: VIRUSES Normal [facility] Comment on above: Performed By: #### C VDTBH #### [facility] [address] [place] [address] Dr. Eliecer Das RP2 Header 2 RESPIRATORY PANEL: BACTERIA Normal [facility] Comment on above: Performed By: #### C VDTBH #### [facility] [address] [place] [address] Dr. Eliecer Das RSV Not detected Normal NOT DETECTED [facility] Comment on above: Performed By: #### C VDTBH #### [facility] [address] [place] [address] Dr. Eliecer Das SARS-CoV-2 (COVID-19) RNA PELON+probe Ql (Unsp spec) Not detected Normal NOT DETECTED [facility] Comment on above: Performed By: #### C VDTBH #### [facility] [address] [place] [address] Dr. Eliecer Das TROPONIN, HIGH SENSITIVITYon 03-02-2022 HSTROP 18.2 pg/mL Normal 4.0-51.3 [facility] Comment on above: Result Comment: CUT- OFF POINTS HAVE BEEN ESTABLISHED BASED ON THE FOURTH UNIVERSAL DEFINITIONS OF MYOCARDIAL INFARCTION. THE UPPER REFERENCE LIMIT (URL) OF TROPONIN, DEFINED THE 99TH PERCENTILE OF cTnI DISTRIBUTION IN A REFERENCE POPULATION, HAS BEEN CONFIRMED THE DECISION THRESHOLD FOR MS DIAGNOSIS. Performed By: #### B LDCX2 #### [facility] [address] [place] [address] CSPINE WO CONon 2 CT CSPINE WO CON EXAMINATION: CT CSPINE WO CON HISTORY: Right shoulder pain after [...] BOBBY JUAREZ Date: 2022-03-01 21:48 Normal [facility] CT HEAD WO CONon 03-01-2022 CT [...] SURAJ KUNZ Date: 2022-03-01 21:50 Normal [facility] Covid-19 PCR (CVDTB)on 02-14 SARS-CoV-2 (COVID-19) RNA PELON+probe Ql (Unsp spec) Not detected Normal NOT DETECTED [facility] Comment on above: Result Comment: When [...] for this test is supported by the [place] of [employer] and Human Service's declaration that [...] used). Performed By: #### P OCGLUC #### [facility] [address] [place] [address] Dr. Eliecer Das ER URINE PROFILEon 2 Bilirubin Ql (U) Negative Normal NEGATIVE [facility] Comment on above: Performed By: #### U RCX #### [facility] [address] [place] [address] Dr. Eliecer Das Clarity (U) CLEAR Normal CLEAR [facility] Comment on above: Performed By: #### U RCX #### [facility] [address] [place] [address] Dr. Eliecer Das Color (U) DK. ORANGE Abnormal YELLOW [facility] Comment on above: Performed By: #### U RCX #### [facility] [address] [place] [address] Dr. Eliecer Das ERUD A micrscopic examination will be performed if indicated. Normal [facility] Comment on above: Performed By: #### U RCX #### [facility] [address] [place] [address] Dr. Eliecer Das Glucose Ql (U) Negative Normal NEGATIVE [facility] Comment on above: Performed By: #### U RCX #### [facility] [address] [place] [address] Dr. Eliecer Das Hemoglobin Ql (U) Negative Normal NEGATIVE [facility] Comment on above: Performed By: #### U RCX #### [facility] [address] [address] [address] Eliecer Das Ketones Ql (U) Negative Normal NEGATIVE [facility] Comment on above: Performed By: #### U RCX #### [facility] [address] [place] [address] Dr. Eliecer Das LEUKOCYTES Negative Normal NEGATIVE [facility] Comment on above: Performed By: #### U RCX #### [facility] [address] [place] [address] Dr. Eliecer Das Nitrite Ql (U) Negative Normal NEGATIVE [facility] Comment on above: Performed By: #### U RCX #### [facility] [address] [place] [address] Dr. Eliecer Das pH (U) 6.0 [pH] Normal 5-9 [facility] Comment on above: Performed By: #### U RCX #### [facility] [address] [place] [address] Dr. Eliecer Das SPEC GRAVITY 1.020 Normal 1.005-<=1.[address] [place] [address] Comment on above: Performed By: #### U RCX #### [facility] [address] [place] [address] Dr. Eliecer Das UA PROTEIN TRACE Normal NEGATIVE/ TRACE [facility] Comment on above: Performed By: #### U RCX #### [facility] [address] [place] [address] Dr. Eliecer Das UR MICRO IND NOT INDICATED Normal [facility] Comment on above: Performed By: #### U RCX #### [facility] [address] [place] [address] Dr. Eliecer Das Urobilinogen Qn (U) 1.0 {Narinder'U}/dL Normal 0.2 - 1. 0 [facility] Comment on above: Performed By: #### U RCX #### [facility] [address] [place] [address] Dr. Eliecer Das XR CHEST 1 Von [...] by: BOBBY JUAREZ Date: 2022-03-01 20:16 Normal [facility] XR PELVIS 1_2 VIEWSon 2021 XR [...] by: BOBBY JUAREZ Date: 2022-03-01 20:17 Normal [facility] XR SHOULDER RT 2V or >on XR [...] BOBBY JUAREZ Date: 2022-03-01 20:18 Normal [facility] T4 LABCORPon 02-16-2022 T4 [Mass/Vol] 5.3 ug/dL Normal 4.5-12.0 [facility] Comment on above: Performed By: #### B LDCX2 #### [facility] [address] [address] [address] Eliecer Das CBC AUTO DIFFon 02-15-2022 BASO # 0.1 103/ul Normal 0.0-0.1 [facility] Comment on above: Performed By: #### P OCGLUC #### [facility] [address] [address] [address] Eliecer Das Basophils/100 WBC (Bld) 1.2 % Normal 0.2-2.0 [facility] Comment on above: Performed By: #### P OCGLUC #### [facility] [address] [place] [address] Dr. Eliecer Das EO # 0.3 103/ul Normal 0.0-0.7 [facility] Comment on above: Performed By: #### P OCGLUC #### [facility] [address] [place] [address] Dr. Eliecer Das Eosinophils/100 WBC (Bld) 4.6 % Normal 0.9-7.0 [facility] Comment on above: Performed By: #### P OCGLUC #### [facility] [address] [place] [address] Dr. Eliecer Das Erythrocyte distribution width (RBC) [Ratio] 13.5 % Normal 11.0-15.0 [facility] Comment on above: Performed By: #### P OCGLUC #### [facility] [address] [place] [address] Dr. Eliecer Das Hematocrit (Bld) [Volume fraction] 36.9 % Normal 36.0-48.0 [facility] Comment on above: Performed By: #### P OCGLUC #### [facility] [address] [place] [address] Dr. Eliecer Das Hemoglobin (Bld) [Mass/Vol] 12.0 g/dL Normal 12.0-16.0 [facility] Comment on above: Performed By: #### P OCGLUC #### [facility] [address] [place] [address] Dr. Eliecer Das IG # 0.02 10e3/ul Normal 0.00-0.03 [facility] Comment on above: Performed By: #### P OCGLUC #### [facility] [address] [place] [address] Dr. Eliecer Das IG % 0.3 % Normal 0.0-0.5 [facility] Comment on above: Performed By: #### P OCGLUC #### [facility] [address] [place] [address] Dr. Eliecer Das LYMPH # 2.1 103/ul Normal 1.2-3.8 [facility] Comment on above: Performed By: #### P OCGLUC #### [facility] [address] [place] [address] Dr. Eliecer Das Lymphocytes/100 WBC (Bld) 35.6 % Normal 20.5-60.0 [facility] Comment on above: Performed By: #### P OCGLUC #### [facility] [address] [place] [address] Dr. Eliecer Das MANUAL DIFF REQ NO Normal [facility] Comment on above: Performed By: #### P OCGLUC #### [facility] [address] [place] [address] Dr. Eliecer Das MCH (RBC) [Entitic mass] 31.2 pg Normal 26.7-34.0 [facility] Comment on above: Performed By: #### P OCGLUC #### [facility] [address] [place] [address] Dr. Eliecer Das MCHC (RBC) [Mass/Vol] 32.5 g/dL Normal 29.9-35.2 [facility] Comment on above: Performed By: #### P OCGLUC #### [facility] [address] [place] [address] Dr. Eliecer Das MCV (RBC) [Entitic vol] 95.8 fL Normal 81.0-99.0 [facility] Comment on above: Performed By: #### P OCGLUC #### [facility] [address] [place] [address] Dr. Eliecer Das MONO # 0.7 103/ul Normal 0.3-0.8 [facility] Comment on above: Performed By: #### P OCGLUC #### [facility] [address] [place] [address] Dr. Eliecer Das Monocytes/100 WBC (Bld) 12.4 % Critically high 1.7-12. 0 [facility] Comment on above: Performed By: #### P OCGLUC #### [facility] [address] [place] [address] Dr. Eliecer Das NEUT # 2.7 103/ul Normal 1.4-6.5 [facility] Comment on above: Performed By: #### P OCGLUC #### [facility] [address] [address] [address] Eliecer Das Neutrophils/100 WBC (Bld) 45.9 % Normal 43.0-75.0 [facility] Comment on above: Performed By: #### P OCGLUC #### [facility] [address] [address] [address] Eliecer Das Platelet mean volume (Bld) [Entitic vol] 9.4 fL Critically low 9.5-13.5 [facility] Comment on above: Performed By: #### P OCGLUC #### [facility] [address] [place] [address] Dr. Eliecer Das PLT 183 103/ul Normal 150-450 [facility] Comment on above: Performed By: #### P OCGLUC #### [facility] [address] [address] [address] Eliecer Das RBC 3.85 106/ul Critically low 4.20-5.40 [facility] Comment on above: Performed By: #### P OCGLUC #### [facility] [address] [address] [address] Eliecer Das WBC 5.8 103/ul Normal 4.0-11.0 [facility] Comment on above: Performed By: #### P OCGLUC #### [facility] [address] [place] [address] Dr. Eliecer Das CULTURE URINEon 02-15-2022 CULTURE URINE Isolate 1 Escherichia coli >100,000 cfu/mL of ORGANISM 1 Escherichia coli ANTIBIOTIC M.I.C RX STATUS Ampicillin >=32 R F Ampicillin/Sulbactam >=32 R F Piperacillin/Tazobact am <=4 S F Cefazolin 8 S F Ceftazidime <=1 S F Ceftriaxone <=1 S F Ertapenem <=0.5 S F Imipenem <=0.25 S F Amikacin <=2 S F Gentamicin <=1 S F Tobramycin <=1 S F Ciprofloxacin <=0.25 S F Levofloxacin 0.5 S F Nitrofurantoin <=16 S F Trimethoprim/Sulfamet hoxazole >=320 R F Normal [facility] Comment on above: Performed By: #### U RCX #### [facility] [address] [place] [address] Dr. Eliecer Das POINT OF CARE GLUCOSEon Glucose [Mass/Vol] 127 mg/dL Critically high 74-106 T [facility] Comment on above: Performed By: #### B [id number] #### [facility] [address] [place] [address] Dr. Eliecer Das PROF 14(COMP METB)on 022 Albumin [Mass/Vol] 2.2 g/dL Critically low 3.4-5.0 [facility] Comment on above: Performed By: #### B [id number] #### [facility] [address] [place] [address] Dr. Eliecer Das Albumin/Globulin [Mass ratio] 0.6 {ratio} Normal [facility] Comment on above: Performed By: #### B [id number] #### [facility] [address] [place] [address] Dr. Eliecer Das ALP [Catalytic activity/Vol] 60 U/L Normal 46-116 [facility] Comment on above: Performed By: #### B [id number] #### [facility] [address] [place] [address] Dr. Eliecer Das ALT [Catalytic activity/Vol] 26 U/L Normal 14-59 [facility] Comment on above: Performed By: #### B [id number] #### [facility] [address] [place] [address] Dr. Eliecer Das Anion gap [Moles/Vol] 10.7 mmol/L Normal [facility] Comment on above: Performed By: #### B [id number] #### [facility] [address] [place] [address] Dr. Eliecer Das AST [Catalytic activity/Vol] 31 U/L Normal 15-37 [facility] Comment on above: Performed By: #### B [id number] #### [facility] [address] [address] [address] Eliecer Das Bilirubin [Mass/Vol] 0.7 mg/dL Normal 0.2-1.0 [facility] Comment on above: Performed By: #### B [id number] #### [facility] [address] [place] [address] Dr. Eliecer Das Calcium [Mass/Vol] 8.0 mg/dL Critically low 8.5-10.1 [facility] Comment on above: Performed By: #### B [id number] #### [facility] [address] [place] [address] Dr. Eliecer Das Chloride [Moles/Vol] 110 mmol/L Critically high 98-107 [facility] Comment on above: Performed By: #### B [id number] #### [facility] [address] [place] [address] Dr. Eliecer Das CO2 [Moles/Vol] 26.8 mmol/L Normal 21.0-32.0 [facility] Comment on above: Performed By: #### B [id number] #### [facility] [address] [place] [address] Dr. Eliecer Das Creatinine [Mass/Vol] 0.69 mg/dL Normal 0.55-1.02 [facility] Comment on above: Performed By: #### B [id number] #### [facility] [address] [place] [address] Dr. Eliecer Das EGFR-AF NAMIBIAN >60 Normal >=60 [facility] Comment on above: Performed By: #### B [id number] #### [facility] [address] [place] [address] Dr. Eliecer Das EGFR-NON AF NAMIBIAN >60 Normal >=60 [facility] Comment on above: Performed By: #### B [id number] #### [facility] [address] [place] [address] Dr. Eliecer Das Globulin (S) [Mass/Vol] 3.4 g/dL Normal T [facility] Comment on above: Performed By: #### B [id number] #### [facility] [address] [place] [address] Dr. Eliecer Das Glucose [Mass/Vol] 123 mg/dL Critically high 74-106 [facility] Comment on above: Performed By: #### B [id number] #### [facility] [address] [place] [address] Dr. Eliecer Das Potassium [Moles/Vol] 3.5 mmol/L Normal 3.5-5.1 [facility] Comment on above: Performed By: #### B [id number] #### [facility] [address] [place] [address] Dr. Eliecer Das Protein [Mass/Vol] 5.6 g/dL Critically low 6.4-8.2 [facility] Comment on above: Performed By: #### B [id number] #### [facility] [address] [place] [address] Dr. Eliecer Das Sodium [Moles/Vol] 144 mmol/L Normal 136-145 [facility] Comment on above: Performed By: #### B [id number] #### [facility] [address] [place] [address] Dr. Eliecer Das Urea nitrogen [Mass/Vol] 9.0 mg/dL Normal 7.0-18.0 [facility] Comment on above: Performed By: #### B [id number] #### [facility] [address] [place] [address] Dr. Eliecer Das Urea nitrogen/Creatinine [Mass ratio] 13.0 mg/mg Normal [facility] Comment on above: Performed By: #### B [id number] #### [facility] [address] [place] [address] Dr. Eliecer Das CBC AUTO DIFFon 02-14-2022 BASO # 0.1 103/ul Normal 0.0-0.1 [facility] Comment on above: Performed By: #### B [id number] #### [facility] [address] [place] [address] Dr. Eliecer Das Basophils/100 WBC (Bld) 1.0 % Normal 0.2-2.0 [facility] Comment on above: Performed By: #### B [id number] #### [facility] [address] [address] [address] Eliecer Das EO # 0.3 103/ul Normal 0.0-0.7 [facility] Comment on above: Performed By: #### B [id number] #### [facility] [address] [place] [address] Dr. Eliecer Das Eosinophils/100 WBC (Bld) 4.4 % Normal 0.9-7.0 [facility] Comment on above: Performed By: #### B [id number] #### [facility] [address] [place] [address] Dr. Eliecer Das Erythrocyte distribution width (RBC) [Ratio] 13.6 % Normal 11.0-15.0 [facility] Comment on above: Performed By: #### B [id number] #### [facility] [address] [place] [address] Dr. Eliecer Das Hematocrit (Bld) [Volume fraction] 38.4 % Normal 36.0-48.0 [facility] Comment on above: Performed By: #### B [id number] #### [facility] [address] [place] [address] Dr. Eliecer Das Hemoglobin (Bld) [Mass/Vol] 12.3 g/dL Normal 12.0-16.0 [facility] Comment on above: Performed By: #### B [id number] #### [facility] [address] [place] [address] Dr. Eliecer Das IG # 0.04 10e3/ul Critically high 0.00-0.03 [facility] Comment on above: Performed By: #### B [id number] #### [facility] [address] [place] [address] Dr. Eliecer Das IG % 0.7 % Critically high 0.0-0.5 [facility] Comment on above: Performed By: #### B [id number] #### [facility] [address] [place] [address] Dr. Eliecer Das LYMPH # 2.5 103/ul Normal 1.2-3.8 [facility] Comment on above: Performed By: #### B [id number] #### [facility] [address] [place] [address] Dr. Eliecer Das Lymphocytes/100 WBC (Bld) 40.7 % Normal 20.5-60.0 [facility] Comment on above: Performed By: #### B [id number] #### [facility] [address] [place] [address] Dr. Eliecer Das MANUAL DIFF REQ NO Normal [facility] Comment on above: Performed By: #### B LDCX1 #### [facility] [address] [place] [address] Dr. Eliecer Das MCH (RBC) [Entitic mass] 30.7 pg Normal 26.7-34.0 [facility] Comment on above: Performed By: #### B [id number] #### [facility] [address] [place] [address] Dr. Eliecer Das MCHC (RBC) [Mass/Vol] 32.0 g/dL Normal 29.9-35.2 [facility] Comment on above: Performed By: #### B LDCX1 #### [facility] [address] [place] [address] Dr. Eliecer Das MCV (RBC) [Entitic vol] 95.8 fL Normal 81.0-99.0 [facility] Comment on above: Performed By: #### B LDCX1 #### [facility] [address] [place] [address] Dr. Eliecer Das MONO # 0.7 103/ul Normal 0.3-0.8 [facility] Comment on above: Performed By: #### B [id number] #### [facility] [address] [place] [address] Dr. Eliecer Das Monocytes/100 WBC (Bld) 11.5 % Normal 1.7-12.0 [facility] Comment on above: Performed By: #### B LDCX1 #### [facility] [address] [place] [address] Dr. Eliecer Das NEUT # 2.6 103/ul Normal 1.4-6.5 [facility] Comment on above: Performed By: #### B LDCX1 #### [facility] [address] [place] [address] Dr. Eliecer Das Neutrophils/100 WBC (Bld) 41.7 % Critically low 43.0-75.0 [facility] Comment on above: Performed By: #### B LDCX1 #### [facility] [address] [place] [address] Dr. Eliecer Das Platelet mean volume (Bld) [Entitic vol] 9.5 fL Normal 9.5-13.5 [facility] Comment on above: Performed By: #### B LDCX1 #### [facility] [address] [place] [address] Dr. Eliecer Das PLT 215 103/ul Normal 150-450 [facility] Comment on above: Performed By: #### B [id number] #### [facility] [address] [place] [address] Dr. Eliecer Das RBC 4.01 106/ul Critically low 4.20-5.40 [facility] Comment on above: Performed By: #### B LDCX1 #### [facility] [address] [place] [address] Dr. Eliecer Das WBC 6.1 103/ul Normal 4.0-11.0 [facility] Comment on above: Performed By: #### B LDCX1 #### [facility] [address] [place] [address] Dr. Eliecer Das POINT OF CARE GLUCOSEon 06-0 Glucose [Mass/Vol] 100 mg/dL Normal 74-106 [facility] Comment on above: Performed By: #### U RCX #### [facility] [address] [place] [address] Dr. Eliecer Das Glucose [Mass/Vol] 95 mg/dL Normal 74-106 [facility] Comment on above: Performed By: #### B [id number] #### [facility] [address] [place] [address] Dr. Eliecer Das Glucose [Mass/Vol] 107 mg/dL Critically high 74-106 [facility] Comment on above: Performed By: #### B LDCX1 #### [facility] [address] [place] [address] Dr. Eliecer Das Glucose [Mass/Vol] 194 mg/dL Critically high 74-106 [facility] Comment on above: Performed By: #### C VDTBH #### [facility] [address] [place] [address] Dr. Eliecer Das Glucose [Mass/Vol] 105 mg/dL Normal 74-106 [facility] Comment on above: Performed By: #### B [id number] #### [facility] [address] [place] [address] Dr. Eliecer Das PROF 14(COMP METB)on 022 Albumin [Mass/Vol] 2.2 g/dL Critically low 3.4-5.0 [facility] Comment on above: Performed By: #### U RCX #### [facility] [address] [place] [address] Dr. Eliecer Das Albumin/Globulin [Mass ratio] 0.6 {ratio} Normal [facility] Comment on above: Performed By: #### U RCX #### [facility] [address] [place] [address] Dr. Eliecer Das ALP [Catalytic activity/Vol] 56 U/L Normal 46-116 [facility] Comment on above: Performed By: #### U RCX #### [facility] [address] [place] [address] Dr. Eliecer Das ALT [Catalytic activity/Vol] 30 U/L Normal 14-59 [facility] Comment on above: Performed By: #### U RCX #### [facility] [address] [place] [address] Dr. Eliecer Das Anion gap [Moles/Vol] 12.2 mmol/L Normal [facility] Comment on above: Performed By: #### U RCX #### [facility] [address] [place] [address] Dr. Eliecer Das AST [Catalytic activity/Vol] 43 U/L Critically high 15-37 [facility] Comment on above: Performed By: #### U RCX #### [facility] [address] [place] [address] Dr. Eliecer Das Bilirubin [Mass/Vol] 1.5 mg/dL Critically high 0.2-1.0 [facility] Comment on above: Performed By: #### U RCX #### [facility] [address] [place] [address] Dr. Eliecer Das Calcium [Mass/Vol] 8.1 mg/dL Critically low 8.5-10.1 [facility] Comment on above: Performed By: #### U RCX #### [facility] [address] [place] [address] Dr. Eliecer Das Chloride [Moles/Vol] 110 mmol/L Critically high 98-107 [facility] Comment on above: Performed By: #### U RCX #### [facility] [address] [place] [address] Dr. Eliecer Das CO2 [Moles/Vol] 26.7 mmol/L Normal 21.0-32.0 [facility] Comment on above: Performed By: #### U RCX #### [facility] [address] [place] [address] Dr. Eliecer Das Creatinine [Mass/Vol] 0.71 mg/dL Normal 0.55-1.02 [facility] Comment on above: Performed By: #### U RCX #### [facility] [address] [place] [address] Dr. Eliecer Das EGFR-AF NAMIBIAN >60 Normal >=60 [facility] Comment on above: Performed By: #### U RCX #### [facility] [address] [place] [address] Dr. Eliecer Das EGFR-NON AF NAMIBIAN >60 Normal >=60 [facility] Comment on above: Performed By: #### U RCX #### [facility] [address] [place] [address] Dr. Eliecer Das Globulin (S) [Mass/Vol] 3.5 g/dL Normal T [facility] Comment on above: Performed By: #### U RCX #### [facility] [address] [address] [address] Eliecer Das Glucose [Mass/Vol] 82 mg/dL Normal 74-106 [facility] Comment on above: Performed By: #### U RCX #### [facility] [address] [address] [address] Eliecer Das Potassium [Moles/Vol] 3.9 mmol/L Normal 3.5-5.1 [facility] Comment on above: Performed By: #### U RCX #### [facility] [address] [address] [address] Eliecer Das Protein [Mass/Vol] 5.7 g/dL Critically low 6.4-8.2 [facility] Comment on above: Performed By: #### U RCX #### [facility] [address] [address] [address] Eliecer Das Sodium [Moles/Vol] 145 mmol/L Normal 136-145 [facility] Comment on above: Performed By: #### U RCX #### [facility] [address] [address] [address] Eliecer Das Urea nitrogen [Mass/Vol] 8.0 mg/dL Normal 7.0-18.0 [facility] Comment on above: Performed By: #### U RCX #### [facility] [address] [address] [address] Eliecer Das Urea nitrogen/Creatinine [Mass ratio] 11.3 mg/mg Normal [facility] Comment on above: Performed By: #### U RCX #### [facility] [address] [address] [address] Eliecer Das TSHon 02-14-2022 TSH 1.050 uIU/mL Normal 0.358-3.740 [facility] Comment on above: Performed By: #### U RCX #### [facility] [address] [address] [address] Eliecer Das TSH RANGE SEE BELOW Normal [facility] Comment on above: Result Comment: <0.3 4 UIU/ml HYPERTHYROID 0.34-5.60 UIU/ml EUTHYROID >5.60 UIU/ml HYPOTHYROID Performed By: #### U RCX #### [facility] [address] [place] [address] Dr. Eliecer Das BNPon 02-13-2022 Natriuretic peptide B (Bld) [Mass/Vol] 87.0 pg/mL Normal <=1,800.0 [facility] Comment on above: Performed By: #### B LDCX2 #### [facility] [address] [place] [address] Dr. Eliecer aDs CBC AUTO DIFFon 02-13-2022 BASO # 0.1 103/ul Normal 0.0-0.1 [facility] Comment on above: Performed By: #### P OCGLUC #### [facility] [address] [place] [address] Dr. Eliecer Das Basophils/100 WBC (Bld) 1.4 % Normal 0.2-2.0 [facility] Comment on above: Performed By: #### P OCGLUC #### [facility] [address] [place] [address] Dr. Eliecer Das EO # 0.2 103/ul Normal 0.0-0.7 [facility] Comment on above: Performed By: #### P OCGLUC #### [facility] [address] [place] [address] Dr. Eliecer Das Eosinophils/100 WBC (Bld) 3.8 % Normal 0.9-7.0 [facility] Comment on above: Performed By: #### P OCGLUC #### [facility] [address] [place] [address] Dr. Eliecer Das Erythrocyte distribution width (RBC) [Ratio] 13.6 % Normal 11.0-15.0 [facility] Comment on above: Performed By: #### P OCGLUC #### [facility] [address] [place] [address] Dr. Eliecer Das Hematocrit (Bld) [Volume fraction] 46.3 % Normal 36.0-48.0 [facility] Comment on above: Performed By: #### P OCGLUC #### [facility] [address] [address] [address] Eliecer Das Hemoglobin (Bld) [Mass/Vol] 14.8 g/dL Normal 12.0-16.0 [facility] Comment on above: Performed By: #### P OCGLUC #### [facility] [address] [address] [address] Eliecer Das IG # 0.03 10e3/ul Normal 0.00-0.03 [facility] Comment on above: Performed By: #### P OCGLUC #### [facility] [address] [address] [address] Eliecer Das IG % 0.5 % Normal 0.0-0.5 [facility] Comment on above: Performed By: #### P OCGLUC #### [facility] [address] [address] [address] Eliecer Das LYMPH # 1.8 103/ul Normal 1.2-3.8 [facility] Comment on above: Performed By: #### P OCGLUC #### [facility] [address] [address] [address] Eliecer Das Lymphocytes/100 WBC (Bld) 28.2 % Normal 20.5-60.0 [facility] Comment on above: Performed By: #### P OCGLUC #### [facility] [address] [address] [address] Eliecer Das MANUAL DIFF REQ NO Normal [facility] Comment on above: Performed By: #### P OCGLUC #### [facility] [address] [address] [address] Eliecer Das MCH (RBC) [Entitic mass] 31.1 pg Normal 26.7-34.0 [facility] Comment on above: Performed By: #### P OCGLUC #### [facility] [address] [address] [address] Eliecer Das MCHC (RBC) [Mass/Vol] 32.0 g/dL Normal 29.9-35.2 [facility] Comment on above: Performed By: #### P OCGLUC #### [facility] [address] [address] [address] Eliecer Das MCV (RBC) [Entitic vol] 97.3 fL Normal 81.0-99.0 [facility] Comment on above: Performed By: #### P OCGLUC #### [facility] [address] [address] [address] Eliecer Das MONO # 0.6 103/ul Normal 0.3-0.8 [facility] Comment on above: Performed By: #### P OCGLUC #### [facility] [address] [address] [address] Eliecer Das Monocytes/100 WBC (Bld) 9.1 % Normal 1.7-12.0 [facility] Comment on above: Performed By: #### P OCGLUC #### [facility] [address] [address] [address] Eliecer Das NEUT # 3.6 103/ul Normal 1.4-6.5 [facility] Comment on above: Performed By: #### P OCGLUC #### [facility] [address] [address] [address] Eliecer Das Neutrophils/100 WBC (Bld) 57.0 % Normal 43.0-75.0 [facility] Comment on above: Performed By: #### P OCGLUC #### [facility] [address] [address] [address] Eliecer Das Platelet mean volume (Bld) [Entitic vol] 9.4 fL Critically low 9.5-13.5 [facility] Comment on above: Performed By: #### P OCGLUC #### [facility] [address] [address] [address] Eliecer Das PLT 239 103/ul Normal 150-450 [facility] Comment on above: Performed By: #### P OCGLUC #### [facility] [address] [address] [address] Eliecer Das RBC 4.76 106/ul Normal 4.20-5.40 [facility] Comment on above: Performed By: #### P OCGLUC #### [facility] [address] [place] [address] Dr. Eliecer Das WBC 6.3 103/ul Normal 4.0-11.0 [facility] Comment on above: Performed By: #### P OCGLUC #### [facility] [address] [place] [address] Dr. Eliecer Das CULTURE BLOODon 02-13-2022 Microscopic examination of blood, culture Culture Observations: NO GROWTH AT 5 DAYS. Normal [facility] Comment on above: Performed By: #### B [id number] #### [facility] [address] [place] [address] Dr. Eliecer Das Microscopic examination of blood, culture Culture Observations: NO GROWTH AT 5 DAYS. Normal [facility] Comment on above: Performed By: #### C VDTBH #### [facility] [address] [place] [address] Dr. Eliecer Das Covid-19 PCR ([facility])on 01-16 SARS-CoV-2 (COVID-19) RNA PELON+probe Ql (Unsp spec) Not detected Normal NOT DETECTED [facility] Comment on above: Result Comment: When [...] for this test is supported by the Radio Electronics Technician of Health and Human Service's declaration that [...] used). Performed By: #### U RCX #### [facility] [address] [place] [address] Dr. Eliecer Das ER URINE PROFILEon 2 Bilirubin Ql (U) Negative Normal NEGATIVE [facility] Comment on above: Performed By: #### P OCGLUC #### [facility] [address] [address] [address] Eliecer Das Clarity (U) CLEAR Normal CLEAR [facility] Comment on above: Performed By: #### P OCGLUC #### [facility] [address] [address] [address] Eliecer Das Color (U) YELLOW Normal YELLOW [facility] Comment on above: Performed By: #### P OCGLUC #### [facility] [address] [address] [address] Eliecer GRAHAM A micrscopic examination will be performed if indicated. Normal [facility] Comment on above: Performed By: #### P OCGLUC #### [facility] [address] [place] [address] Dr. Eliecer Das Glucose Ql (U) Negative Normal NEGATIVE [facility] Comment on above: Performed By: #### P OCGLUC #### [facility] [address] [address] [address] Eliecer Das Hemoglobin Ql (U) Negative Normal NEGATIVE [facility] Comment on above: Performed By: #### P OCGLUC #### [facility] [address] [place] [address] Dr. Eliecer Das Ketones Ql (U) Negative Normal NEGATIVE [facility] Comment on above: Performed By: #### P OCGLUC #### [facility] [address] [address] [address] Eliecer Das LEUKOCYTES TRACE Abnormal NEGATIVE [facility] Comment on above: Performed By: #### P OCGLUC #### [facility] [address] [place] [address] Dr. Eliecer Das Nitrite Ql (U) Positive Abnormal NEGATIVE [facility] Comment on above: Performed By: #### P OCGLUC #### [facility] [address] [place] [address] Dr. Eleicer Das pH (U) 5.5 [pH] Normal 5-9 [facility] Comment on above: Performed By: #### P OCGLUC #### [facility] [address] [address] [address] Eliecer Das SPEC GRAVITY 1.025 Normal 1.005-<=1.0 25 [facility] Comment on above: Performed By: #### P OCGLUC #### [facility] [address] [address] [address] Eliecer Das UA PROTEIN Negative Normal NEGATIVE/ TRACE [facility] Comment on above: Performed By: #### P OCGLUC #### [facility] [address] [address] [address] Eliecer Das UR MICRO IND INDICATED Normal [facility] Comment on above: Performed By: #### P OCGLUC #### [facility] [address] [place] [address] Dr. Eliecer Das Urobilinogen Qn (U) 0.2 {Narinder'U}/dL Normal 0.2 - 1. 0 [facility] Comment on above: Performed By: #### P OCGLUC #### [facility] [address] [place] [address] Dr. Eliecer Das LACTATE/LACTIC ACIDon 2021 Lactate [Moles/Vol] 2.1 mmol/L Critically high 0.4-1.9 [facility] Comment on above: Performed By: #### B [id number] #### [facility] [address] [place] [address] Dr. Eliecer Das Lactate [Moles/Vol] 2.5 mmol/L Critically high 0.4-1.9 [facility] Comment on above: Performed By: #### B LDCX1 #### [facility] [address] [place] [address] Dr. Eliecer Das POINT OF CARE GLUCOSEon 01-16 Glucose [Mass/Vol] 131 mg/dL Critically high 74-106 T [facility] Comment on above: Performed By: #### B LDCX1 #### [facility] [address] [place] [address] Dr. Eliecer Das PROF 14(COMP METB)on 022 Albumin [Mass/Vol] 2.8 g/dL Critically low 3.4-5.0 [facility] Comment on above: Performed By: #### B LDCX2 #### [facility] [address] [place] [address] Dr. Eliecer Das Albumin/Globulin [Mass ratio] 0.6 {ratio} Normal [facility] Comment on above: Performed By: #### B LDCX2 #### [facility] [address] [place] [address] Dr. Eliecer Das ALP [Catalytic activity/Vol] 75 U/L Normal 46-116 [facility] Comment on above: Performed By: #### B LDCX2 #### [facility] [address] [place] [address] Dr. Eliecer Das ALT [Catalytic activity/Vol] 33 U/L Normal 14-59 [facility] Comment on above: Performed By: #### B LDCX2 #### [facility] [address] [place] [address] Dr. Eliecer Das Anion gap [Moles/Vol] 10.5 mmol/L Normal [facility] Comment on above: Performed By: #### B LDCX2 #### [facility] [address] [place] [address] Dr. Eliecer Das AST [Catalytic activity/Vol] 52 U/L Critically high 15-37 [facility] Comment on above: Performed By: #### B LDCX2 #### [facility] [address] [place] [address] Dr. Eliecer Das Bilirubin [Mass/Vol] 1.9 mg/dL Critically high 0.2-1.0 [facility] Comment on above: Performed By: #### B LDCX2 #### [facility] [address] [place] [address] Dr. Eliecer Das Calcium [Mass/Vol] 9.5 mg/dL Normal 8.5-10.1 [facility] Comment on above: Performed By: #### B LDCX2 #### [facility] [address] [place] [address] Dr. Eliecer Das Chloride [Moles/Vol] 107 mmol/L Normal 98-107 [facility] Comment on above: Performed By: #### B LDCX2 #### [facility] [address] [place] [address] Dr. Eliecer Das CO2 [Moles/Vol] 27.4 mmol/L Normal 21.0-32.0 [facility] Comment on above: Performed By: #### B LDCX2 #### [facility] [address] [place] [address] Dr. Eliecer Das Creatinine [Mass/Vol] 0.86 mg/dL Normal 0.55-1.02 [facility] Comment on above: Performed By: #### B LDCX2 #### [facility] [address] [place] [address] Dr. Eliecer Das EGFR-AF NAMIBIAN >60 Normal >=60 [facility] Comment on above: Performed By: #### B LDCX2 #### [facility] [address] [place] [address] Dr. Eliecer Das EGFR-NON AF NAMIBIAN >60 Normal >=60 [facility] Comment on above: Performed By: #### B LDCX2 #### [facility] [address] [place] [address] Dr. Eliecer Das Globulin (S) [Mass/Vol] 4.4 g/dL Normal [facility] Comment on above: Performed By: #### B LDCX2 #### [facility] [address] [place] [address] Dr. Eliecer Das Glucose [Mass/Vol] 136 mg/dL Critically high 74-106 [facility] Comment on above: Performed By: #### B LDCX2 #### [facility] [address] [place] [address] Dr. Eliecer Das Potassium [Moles/Vol] 3.9 mmol/L Normal 3.5-5.1 [facility] Comment on above: Performed By: #### B LDCX2 #### [facility] [address] [place] [address] Dr. Eliecer Das Protein [Mass/Vol] 7.2 g/dL Normal 6.4-8.[address] [facility] Comment on above: Performed By: #### B LDCX2 #### [facility] [address] [place] [address] Dr. Eliecer Das Sodium [Moles/Vol] 141 mmol/L Normal 136-[address] [facility] Comment on above: Performed By: #### B LDCX2 #### [facility] [address] [address] [address] Eliecer Das Urea nitrogen [Mass/Vol] 10.0 mg/dL Normal 7.0-18.0 [facility] Comment on above: Performed By: #### B LDCX2 #### [facility] [address] [place] [address] Dr. Eliecer Das Urea nitrogen/Creatinine [Mass ratio] 11.6 mg/mg Normal [facility] Comment on above: Performed By: #### B LDCX2 #### [facility] [address] [place] [address] Dr. Eliecer Das PROTIMEon 02-13-2022 INR Coag (PPP) [Relative time] 1.16 {INR} Normal [facility] Comment on above: Performed By: #### B LDCX1 #### [facility] [address] [place] [address] Dr. Eliecer Das INR GUIDELINES SEE BELOW Normal [facility] Comment on above: Result Comment: KAITY RED INR: 2.0 - 3.0 CONDITIONS NOT LISTED BELOW 2.5 - 3.5 FOR PROSTHETIC HEART VALVE REPLACEMENT 2.5 - 3.5 RECURRENT THROMBOSIS Performed By: #### B LDCX1 #### [facility] [address] [place] [address] Dr. Eliecer Das PT Coag (PPP) [Time] 12.4 s Critically high 9.0-11.6 [facility] Comment on above: Performed By: #### B LDCX1 #### [facility] [address] [place] [address] Dr. Eliecer Das TROPONIN, HIGH SENSITIVITYon 02-13-2022 HSTROP 9.4 pg/mL Normal 4.0-51.3 [facility] Comment on above: Result Comment: CUT- OFF POINTS HAVE BEEN ESTABLISHED BASED ON THE FOURTH UNIVERSAL DEFINITIONS OF MYOCARDIAL INFARCTION. THE UPPER REFERENCE LIMIT (URL) OF TROPONIN, DEFINED THE 99TH PERCENTILE OF cTnI DISTRIBUTION IN A REFERENCE POPULATION, HAS BEEN CONFIRMED THE DECISION THRESHOLD FOR MS DIAGNOSIS. Performed By: #### B LDCX2 #### [facility] [address] [place] [address] Dr. Eliecer Das URINE MICROSCOPIC ONLYon BACTERIA LARGE Abnormal NONE SEEN [facility] Comment on above: Performed By: #### P OCGLUC #### [facility] [address] [place] [address] Dr. Eliecer Das Bacteria identified Cx Nom (U) INDICATED Normal [facility] Comment on above: Performed By: #### P OCGLUC #### [facility] [address] [place] [address] Dr. Eliecer Das CAST NONE SEEN Normal NONE SEEN [facility] Comment on above: Performed By: #### P OCGLUC #### [facility] [address] [place] [address] Dr. Eliecer Das Crystals LM Nom (Urine sed) NONE SEEN Normal NONE SEEN [facility] Comment on above: Performed By: #### P OCGLUC #### [facility] [address] [place] [address] Dr. Eliecer Das Epithelial cells LM Ql (Urine sed) FEW Abnormal NONE SEEN /RARE [facility] Comment on above: Performed By: #### P OCGLUC #### [facility] [address] [place] [address] Dr. Eliecer Das MUCOUS NONE SEEN Normal NONE SEEN [facility] Comment on above: Performed By: #### P OCGLUC #### [facility] [address] [place] [address] Dr. Eliecer Das RBC 0-2 Normal 0-2 [facility] Comment on above: Performed By: #### P OCGLUC #### [facility] [address] [place] [address] Dr. Eliecer Das WBC 5-10 Abnormal NONE SEEN [facility] Comment on above: Performed By: #### P OCGLUC #### [facility] [address] [address] [address] Eliecer Das XR CHEST 1 Von [...] by: BOBBY RAMACHANDRAN Date: 2022-02-13 13:21 Normal [facility] A1C HEMOGLOBINon 11-30-2021 HbA1c (Bld) [Mass fraction] 5.3 % [facility] Other HbA1c (Bld) [Mass fraction]o n 11-30-2021 A1C HEMOGLOBIN [facility] Other A1C HEMOGLOBINon 08-28-2021 HbA1c (Bld) [Mass fraction] 5.5 % [facility] Other HbA1c (Bld) [Mass fraction]o n 08-28-2021 A1C HEMOGLOBIN [facility] Other COVID Quick Testingon 2020 Result Negative [facility] [employer] Other Vital Signs Date Time Vital Sign Value Performing Clinician Facility 12-07-2024 13:03040 Body height 142.24 cm [facility] 12-07-2024 13:03040 Body mass index (BMI) [Ratio] 38.3 kg/m2 [facility] 12-07-2024 13:03040 Body weight 77.64 kg [facility] 12-07-2024 13:03-0400 Diastolic blood pressure 63 mm[Hg] [facility] 12-07-2024 13:03-040 Heart rate 66 /min [facility] 12-07-2024 13:03-0400 Respiratory rate 12 /min [facility] 12-07-2024 13:03-0400 SaO2% (BldA) [Mass fraction] 99 % [facility] 12-07-2024 13:03-0400 Systolic blood pressure 140 mm[Hg] [facility] 06-08-2024 13:02-0400 Body height 142.24 cm [facility] 06-08-2024 13:02-0400 Body mass index (BMI) [Ratio] 39.4 kg/m2 [facility] 06-08-2024 13:02-0400 Body weight 79.83 kg [facility] 06-08-2024 13:02-0400 Diastolic blood pressure 70 mm[Hg] [facility] 06-08-2024 13:02-0400 Heart rate 55 /min [facility] 06-08-2024 13:02-0400 Systolic blood pressure 152 mm[Hg] [facility] 03-05-2024 13:04-0400 Body height 142.24 cm [facility] 03-05-2024 13:04-0400 Body mass index (BMI) [Ratio] 37.8 kg/m2 [facility] 03-05-2024 13:04-0400 Body weight 76.65 kg [facility] 03-05-2024 13:04-0400 Diastolic blood pressure 67 mm[Hg] [facility] 03-05-2024 13:04-0400 Heart rate 73 /min [facility] 03-05-2024 13:04-0400 Systolic blood pressure 111 mm[Hg] [facility] 01-28-2024 11:23-0400 Body height 142.24 cm [facility] 01-28-2024 11:23-0400 Body mass index (BMI) [Ratio] 36.1 kg/m2 [facility] 01-28-2024 11:23-0400 Body temperature 98 [degF] [facility] 01-28-2024 11:23-0400 Body weight 73.02 kg [facility] 01-28-2024 11:23-0400 Diastolic blood pressure 70 mm[Hg] [facility] 01-28-2024 11:23-0400 Heart rate 69 /min [facility] 01-28-2024 11:23-0400 Respiratory rate 20 /min [facility] 01-28-2024 11:23-0400 SaO2% (BldA) [Mass fraction] 95 % [facility] 01-28-2024 11:23-0400 Systolic blood pressure 138 mm[Hg] [facility] 01-01-2024 10:42-0400 Body height 143.51 cm [facility] 01-01-2024 10:42-0400 Body mass index (BMI) [Ratio] 35.6 kg/m2 [facility] 01-01-2024 10:42-0400 Body weight 73.48 kg [facility] 01-01-2024 10:42-0400 Diastolic blood pressure 74 mm[Hg] [facility] 01-01-2024 10:42-0400 Heart rate 66 /min [facility] 01-01-2024 10:42-0400 Systolic blood pressure 164 mm[Hg] [facility] 12-02-2023 13:38-0400 Body height 143.51 cm [facility] 12-02-2023 13:38-0400 Body mass index (BMI) [Ratio] 36.3 kg/m2 [facility] 12-02-2023 13:38-0400 Body weight 74.84 kg [facility] 12-02-2023 13:38-0400 Diastolic blood pressure 69 mm[Hg] [facility] 12-02-2023 13:38-0400 Heart rate 67 /min [facility] 12-02-2023 13:38-0400 Systolic blood pressure 138 mm[Hg] [facility] 08-01-2023 14:30-0500 Body height 143.51 cm Fatoumata Chase Other [facility] Other 08-01-2023 14:30-0500 Body mass index (BMI) [Ratio] 35.9 kg/m2 Fatoumata Chase Other [facility] Other 08-01-2023 14:30-0500 Body weight 73.94 kg Fatoumata Salvatore Other [facility] Other 08-01-2023 14:30-0500 Diastolic blood pressure 83 mm[Hg] Fatoumata Chase Other [facility] Other 08-01-2023 14:30-0500 Systolic blood pressure 143 mm[Hg] Fatoumata Chase Other [facility] Other 07-24-2023 13:00-0500 Body height 143.51 cm Morena Vera Other [facility] Other 07-24-2023 13:00-0500 Body mass index (BMI) [Ratio] 35.68 kg/m2 Morena Vera Other [facility] Other 07-24-2023 13:00-0500 Body temperature 98 [degF] Morena Vera Other [facility] Other 07-24-2023 13:00-0500 Body weight 73.48 kg Morena Vera Other [facility] Other 07-24-2023 13:00-0500 Diastolic blood pressure 72 mm[Hg] Morena Vera Other [facility] Other 07-24-2023 13:00-0500 SaO2% (BldA) [Mass fraction] 97 % Morena Vera Other [facility] Other 07-24-2023 13:00-0500 Systolic blood pressure 142 mm[Hg] Morena Chuy Other [facility] Other 07-16-2023 15:45-0400 Body height 143.51 cm Fatoumata Chase Other [facility] Other 07-16-2023 15:45-0400 Body mass index (BMI) [Ratio] 37 kg/m2 Staci Elif Other [facility] Other 07-16-2023 15:45-0400 Body temperature 97.6 [degF] Staci Elif Other [facility] Other 07-16-2023 15:45-0400 Body weight 76.2 kg Staci Elif Other [facility] Other 07-16-2023 15:45-0400 Diastolic blood pressure 56 mm[Hg] Staci Elif Other [facility] Other 07-16-2023 15:45-0400 Respiratory rate 20 /min Staci Elif Other [facility] Other 07-16-2023 15:45-0400 SaO2% (BldA) [Mass fraction] 99 % Staci Elif Other [facility] Other 07-16-2023 15:45-0400 Systolic blood pressure 113 mm[Hg] Staci Elif Other [facility] Other 07-16-2023 11:00-0400 Body mass index (BMI) [Ratio] 36.69 kg/m2 Fatoumata Chase Other [facility] Other 07-16-2023 11:00-0400 Body weight 75.57 kg Fatoumata Chase Other [facility] Other 07-16-2023 11:00-0400 Diastolic blood pressure 68 mm[Hg] Fatoumata Chase Other [facility] Other 07-16-2023 11:00-0400 Systolic blood pressure 100 mm[Hg] Fatoumata Chase Other [facility] Other 04-26-2023 14:00-0400 Body height 143.51 cm Fatoumata Chase Other [facility] Other 04-26-2023 14:00-0400 Body mass index (BMI) [Ratio] 39.2 kg/m2 Fatoumata Chase Other [facility] Other 04-26-2023 14:00-0400 Body weight 80.74 kg Fatoumata Chase Other [facility] Other 04-26-2023 14:00-0400 Diastolic blood pressure 80 mm[Hg] Fatoumata Chase Other [facility] Other 04-26-2023 14:00-0400 SaO2% (BldA) [Mass fraction] 97 % Fatoumata Chase Other [facility] Other 04-26-2023 14:00-0400 Systolic blood pressure 126 mm[Hg] Fatoumata Chase Other [facility] Other 02-25-2023 14:00-0400 Body height 143.51 cm Fatoumata Chase Other [facility] Other 02-25-2023 14:00-0400 Body mass index (BMI) [Ratio] 38.98 kg/m2 Fatoumata Chase Other [facility] Other 02-25-2023 14:00-0400 Body weight 80.29 kg Fatoumata Salvatore Other [facility] Other 02-25-2023 14:00-0400 Diastolic blood pressure 68 mm[Hg] Fatoumata Salvatore Other [facility] Other 02-25-2023 14:00-0400 Systolic blood pressure 127 mm[Hg] Fatoumata Salvatore Other [facility] Other 01-17-2023 14:30-0400 Body height 176.53 cm Brendon Castelan Other [facility] Other 01-17-2023 14:30-0400 Body mass index (BMI) [Ratio] 24.45 kg/m2 Brendon Castelan Other [facility] Other 01-17-2023 14:30-0400 Body weight 76.2 kg Brendon Castelan Other [facility] Other 01-17-2023 14:30-0400 Diastolic blood pressure 58 mm[Hg] Brendon Castelan Other [facility] Other 01-17-2023 14:30-0400 Respiratory rate 18 /min Brendon Castelan Other [facility] Other 01-17-2023 14:30-0400 SaO2% (BldA) [Mass fraction] 93 % Brendon Castelan Other [facility] Other 01-17-2023 14:30-0400 Systolic blood pressure 122 mm[Hg] Brendon Castelan Other [facility] Other 01-03-2023 12:15-0400 Body height 176.53 cm Brendon Castelan Other [facility] Other 01-03-2023 12:15-0400 Body mass index (BMI) [Ratio] 24.74 kg/m2 Brendon Castelan Other [facility] Other 01-03-2023 12:15-0400 Body weight 77.11 kg Brendon Castelan Other [facility] Other 01-03-2023 12:15-0400 Diastolic blood pressure 58 mm[Hg] Brendon Castelan Other [facility] Other 01-03-2023 12:15-0400 SaO2% (BldA) [Mass fraction] 99 % Brendon Castelan Other [facility] Other 01-03-2023 12:15-0400 Systolic blood pressure 104 mm[Hg] Brendon Castelan Other [facility] Other 12-20-2022 12:15-0400 Body height 176.53 cm Brendon Castelan Other [facility] Other 12-20-2022 12:15-0400 Body mass index (BMI) [Ratio] 25.76 kg/m2 Brendon Castelan Other [facility] Other 12-20-2022 12:15-0400 Body weight 80.29 kg Brendon Castelan Other [facility] Other 12-20-2022 12:15-0400 Diastolic blood pressure 60 mm[Hg] Brendon Castelan Other [facility] Other 12-20-2022 12:15-0400 SaO2% (BldA) [Mass fraction] 96 % Brendon Castelan Other [facility] Other 12-20-2022 12:15-0400 Systolic blood pressure 120 mm[Hg] Brendon Castelan Other [facility] Other 12-18-2022 15:30-0400 Body height 176.53 cm Staci Elif Other [facility] Other 12-18-2022 15:30-0400 Body mass index (BMI) [Ratio] 25.32 kg/m2 Staci Elif Other [facility] Other 12-18-2022 15:30-0400 Body temperature 96.7 [degF] Staci Elif Other [facility] Other 12-18-2022 15:30-0400 Body weight 78.93 kg Staci Elif Other [facility] Other 12-18-2022 15:30-0400 Diastolic blood pressure 60 mm[Hg] Staci Elif Other [facility] Other 12-18-2022 15:30-0400 Respiratory rate 20 /min Staci Elif Other [facility] Other 12-18-2022 15:30-0400 SaO2% (BldA) [Mass fraction] 97 % Staci Elif Other [facility] Other 12-18-2022 15:30-0400 Systolic blood pressure 124 mm[Hg] Staci Elif Other [facility] Other 12-06-2022 16:00-0400 Body height 176.53 cm Brendon Castelan Other [facility] Other 12-06-2022 16:00-0400 Body mass index (BMI) [Ratio] 25.32 kg/m2 Brendon Castelan Other [facility] Other 12-06-2022 16:00-0400 Body weight 78.93 kg Brendon Castelan Other [facility] Other 12-06-2022 16:00-0400 Diastolic blood pressure 60 mm[Hg] Brendon Castelan Other [facility] Other 12-06-2022 16:00-0400 Systolic blood pressure 112 mm[Hg] Brendon Castelan Other [facility] Other 10-01-2022 15:45-0500 Body height 176.53 cm Brendon Castelan Other [facility] Other 10-01-2022 15:45-0500 Body mass index (BMI) [Ratio] 25.32 kg/m2 Brendon Castelan Other [facility] Other 10-01-2022 15:45-0500 Body temperature 98.1 [degF] Brendon Castelan Other [facility] Other 10-01-2022 15:45-0500 Body weight 78.93 kg Brendon Castelan Other [facility] Other 10-01-2022 15:45-0500 Diastolic blood pressure 58 mm[Hg] Brendon Castelan Other [facility] Other 10-01-2022 15:45-0500 Respiratory rate 18 /min Brendon Castelan Other [facility] Other 10-01-2022 15:45-0500 SaO2% (BldA) [Mass fraction] 98 % Brendon Castelan Other [facility] Other 10-01-2022 15:45-0500 Systolic blood pressure 114 mm[Hg] Brendon Castelan Other [facility] Other 09-06-2022 14:00-0500 Body height 176.53 cm Brendon Castelan Other [facility] Other 09-06-2022 14:00-0500 Body mass index (BMI) [Ratio] 25.09 kg/m2 Brendon Castelan Other [facility] Other 09-06-2022 14:00-0500 Body temperature 97.3 [degF] Brendon Castelan Other [facility] Other 09-06-2022 14:00-0500 Body weight 78.2 kg Brendon Castelan Other [facility] Other 09-06-2022 14:00-0500 Diastolic blood pressure 58 mm[Hg] Brendon Castelan Other [facility] Other 09-06-2022 14:00-0500 SaO2% (BldA) [Mass fraction] 93 % Brendon Castelan Other [facility] Other 09-06-2022 14:00-0500 Systolic blood pressure 118 mm[Hg] Brendon Castelan Other [facility] Other 08-30-2022 12:00-0500 Body height 176.53 cm Staci Elif Other [facility] Other 08-30-2022 12:00-0500 Body mass index (BMI) [Ratio] 25.47 kg/m2 Staci Elif Other [facility] Other 08-30-2022 12:00-0500 Body temperature 96.7 [degF] Staci Elif Other [facility] Other 08-30-2022 12:00-0500 Body weight 79.38 kg Staci Elif Other [facility] Other 08-30-2022 12:00-0500 Diastolic blood pressure 57 mm[Hg] Staci Elif Other [facility] Other 08-30-2022 12:00-0500 Respiratory rate 20 /min Staci Elif Other [facility] Other 08-30-2022 12:00-0500 SaO2% (BldA) [Mass fraction] 99 % Staci Elif Other [facility] Other 08-30-2022 12:00-0500 Systolic blood pressure 105 mm[Hg] Staci Elif Other [facility] Other 07-19-2022 16:30-0400 Body height 176.53 cm Brendon Castelan Other [facility] Other 07-19-2022 16:30-0400 Body mass index (BMI) [Ratio] 25.47 kg/m2 Brendon Castelan Other [facility] Other 07-19-2022 16:30-0400 Body temperature 97.8 [degF] Brendon Castelan Other [facility] Other 07-19-2022 16:30-0400 Body weight 79.38 kg Brendon Castelan Other [facility] Other 07-19-2022 16:30-0400 Diastolic blood pressure 58 mm[Hg] Brendon Castelan Other [facility] Other 07-19-2022 16:30-0400 Respiratory rate 20 /min Brendon Castelan Other [facility] Other 07-19-2022 16:30-0400 SaO2% (BldA) [Mass fraction] 97 % Brendon Castelan Other [facility] Other 07-19-2022 16:30-0400 Systolic blood pressure 122 mm[Hg] Brendon Castelan Other [facility] Other 07-18-2022 10:15-0400 Body height 176.53 cm Staci Elfi Other [facility] Other 07-18-2022 10:15-0400 Body mass index (BMI) [Ratio] 25.18 kg/m2 Staci Elif Other [facility] Other 07-18-2022 10:15-0400 Body temperature 97.7 [degF] Staci Elif Other [facility] Other 07-18-2022 10:15-0400 Body weight 78.47 kg Staci Elif Other [facility] Other 07-18-2022 10:15-0400 Diastolic blood pressure 68 mm[Hg] Staci Elif Other [facility] Other 07-18-2022 10:15-0400 Respiratory rate 20 /min Staci Elif Other [facility] Other 07-18-2022 10:15-0400 SaO2% (BldA) [Mass fraction] 98 % Staci Elif Other [facility] Other 07-18-2022 10:15-0400 Systolic blood pressure 133 mm[Hg] Staci Elif Other [facility] Other 06-07-2022 11:30-0400 Body height 176.53 cm Brendon Castelan Other [facility] Other 06-07-2022 11:30-0400 Body mass index (BMI) [Ratio] 25.03 kg/m2 Brendon Castelan Other [facility] Other 06-07-2022 11:30-0400 Body weight 78.02 kg Brendon Castelan Other [facility] Other 06-07-2022 11:30-0400 Diastolic blood pressure 60 mm[Hg] Brendon Castelan Other [facility] Other 06-07-2022 11:30-0400 Systolic blood pressure 122 mm[Hg] Brendon Castelan Other [facility] Other 01-08-2022 16:00-0400 Body height 176.53 cm Brendon Castelan Other [facility] Other 01-08-2022 16:00-0400 Body mass index (BMI) [Ratio] 24.16 kg/m2 Brendon Castelan Other [facility] Other 01-08-2022 16:00-0400 Body weight 75.3 kg Brendon Castelan Other [facility] Other 01-08-2022 16:00-0400 Diastolic blood pressure 62 mm[Hg] Brendon Castelan Other [facility] Other 01-08-2022 16:00-0400 Respiratory rate 18 /min Brendon Castelan Other [facility] Other 01-08-2022 16:00-0400 SaO2% (BldA) [Mass fraction] 99 % Brendon Castelan Other [facility] Other 01-08-2022 16:00-0400 Systolic blood pressure 120 mm[Hg] Brendon Castelan Other [facility] Other 11-30-2021 14:30-0400 Body height 176.53 cm Brendon Castelan Other [facility] Other 11-30-2021 14:30-0400 Body mass index (BMI) [Ratio] 24.16 kg/m2 Brendon Castelan Other [facility] Other 11-30-2021 14:30-0400 Body weight 75.3 kg Brendon Castelan Other [facility] Other 11-30-2021 14:30-0400 Diastolic blood pressure 72 mm[Hg] Brendon Castelan Other [facility] Other 11-30-2021 14:30-0400 Systolic blood pressure 128 mm[Hg] Brendon Castelan Other [facility] Other 08-28-2021 14:15-0500 Body height 176.53 cm Brendon Castelan Other [facility] Other 08-28-2021 14:15-0500 Body mass index (BMI) [Ratio] 24.74 kg/m2 Brendon Castelan Other [facility] Other 08-28-2021 14:15-0500 Body weight 77.11 kg Brendon Castelan Other [facility] Other 08-28-2021 14:15-0500 Diastolic blood pressure 70 mm[Hg] Brendon Castelan Other [facility] Other 08-28-2021 14:15-0500 Systolic blood pressure 124 mm[Hg] Brendon Castelan Other [facility] Other 08-03-2021 15:00-0500 Body height 176.53 cm Brendon Castelan Other [facility] Other 08-03-2021 15:00-0500 Body mass index (BMI) [Ratio] 24.74 kg/m2 Brendon Castelan Other [facility] Other 08-03-2021 15:00-0500 Body weight 77.11 kg Brendon Castelan Other [facility] Other 08-03-2021 15:00-0500 Diastolic blood pressure 60 mm[Hg] Brendon Castelan Other [facility] Other 08-03-2021 15:00-0500 Respiratory rate 18 /min Brendon Castelan Other [facility] Other 08-03-2021 15:00-0500 SaO2% (BldA) [Mass fraction] 98 % Brendon Castelan Other [facility] Other 08-03-2021 15:00-0500 Systolic blood pressure 132 mm[Hg] Brendon Castelan Other [facility] Other 08-01-2021 14:15-0500 Body height 176.53 cm Bobby Ramesh Other [facility] Other 08-01-2021 14:15-0500 Body mass index (BMI) [Ratio] 24.74 kg/m2 Bobby Ramesh Other [facility] Other 08-01-2021 14:15-0500 Body temperature 98 [degF] Bobby Ramesh Other [facility] Other 08-01-2021 14:15-0500 Body weight 77.11 kg Bobby Ramesh Other [facility] Other 08-01-2021 14:15-0500 Diastolic blood pressure 62 mm[Hg] Bobby Ramesh Other [facility] Other 08-01-2021 14:15-0500 SaO2% (BldA) [Mass fraction] 97 % Bobby Ramesh Other [facility] Other 08-01-2021 14:15-0500 Systolic blood pressure 146 mm[Hg] Bobby Ramesh Other [facility] Other 07-07-2021 15:30-0400 Body height 176.53 cm Palma Hill Other [facility] Other 07-07-2021 15:30-0400 Body mass index (BMI) [Ratio] 24.74 kg/m2 Palma Liz Other [facility] Other 07-07-2021 15:30-0400 Body temperature 101.4 [degF] Palma Hill Other [facility] Other 07-07-2021 15:30-0400 Body weight 77.11 kg Palma Hill Other [facility] Other 07-07-2021 15:30-0400 Respiratory rate 18 /min Palma Hill Other [facility] Other 07-07-2021 15:30-0400 SaO2% (BldA) [Mass fraction] 94 % Palma Hill Other [facility] Other 05-25-2021 15:30-0400 Body height 176.53 cm Brendon Castelan Other [facility] Other 05-25-2021 15:30-0400 Body mass index (BMI) [Ratio] 24.89 kg/m2 Brendon Castelan Other [facility] Other 05-25-2021 15:30-0400 Body weight 77.57 kg Brendon Castelan Other [facility] Other 05-25-2021 15:30-0400 Diastolic blood pressure 80 mm[Hg] Brendon Castelan Other [facility] Other 05-25-2021 15:30-0400 Respiratory rate 16 /min Brendon Castelan Other [facility] Other 05-25-2021 15:30-0400 SaO2% (BldA) [Mass fraction] 98 % Berndon Castelan Other [facility] Other 05-25-2021 15:30-0400 Systolic blood pressure 124 mm[Hg] Brendon Castelan Other [facility] Other Encounters Encounter Date Encounter Type Care Provider Facility Start: 05-04-2025 End: 05-04-2025 Office outpatient visit 15 minutes Jimmy Miranda DPM Work Phone: [facility] Comment on above: Onychomycosis (Prima ry Dx); Pain in both feet; 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, without long-term current use of insulin (HCC); Lymphedema; Hammer toes of both feet Start: 05-04-2025 End: 05-04-2025 ambulatory JIMMY MIRANDA Not Available Start: 05-04-2025 End: 05-04-2025 Bamboo flowsheet Jimmy Miranda DPM Work Phone: [facility] Start: 05-04-2025 End: 05-04-2025 Bamboo flowsheet Jimmy Miranda DPM Work Phone: [facility] Start: 02-02-2025 End: 02-02-2025 Office outpatient visit 10 minutes Zulema Jin MD Work Phone: [facility] Comment on above: Seborrheic keratosis (Primary Dx); Neoplasm of unspecified behavior of bone, soft tissue, and skin; Seborrheic keratosis, inflamed Start: 02-02-2025 End: 02-02-2025 ambulatory ZULEMA JIN Not Available Start: 02-02-2025 End: 02-02-2025 Bamboo flowsirma Jin MD Work Phone: [facility] Start: 02-02-2025 End: 02-02-2025 Bamboo flowsirma Jin MD Work Phone: [facility] Start: 01-18-2025 End: 01-18-2025 Patient encounter procedure Jimmy Miranda DPM Work Phone: [facility] Comment on above: Onychomycosis (Prima ry Dx); Pain in both feet; 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, without long-term current use of insulin; Lymphedema Start: 01-18-2025 End: 01-18-2025 ambulatory JIMMY MIRANDA Not Available Start: 01-18-2025 End: 01-18-2025 Bamboo flowsheet Jimmy Miranda DPM Work Phone: [facility] Start: 01-18-2025 End: 01-18-2025 Bamboo flowsheet Jimmy Miranda DPM Work Phone: [facility] Start: 12-07-2024 End: 12-07-2024 ambulatory [facility] Work Phone: Start: 12-07-2024 End: 12-07-2024 Patient encounter procedure [facility] Work Phone: Start: 10-20-2024 End: 10-20-2024 Patient encounter procedure Jimmy Miranda DPM Work Phone: [facility] Comment on above: Onychomycosis (Prima ry Dx); Pain in both feet; 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, without long-term current use of insulin ([facility]); Lymphedema Start: 10-20-2024 End: 10-20-2024 ambulatory JIMMY MIRANDA Not Available Start: 10-20-2024 End: 10-20-2024 Bamboo flowsheet Jimmy Miranda DPM Work Phone: [facility] Start: 10-20-2024 End: 10-20-2024 Bamboo flowsheet Jimmy Miranda DPM Work Phone: [facility] Start: 06-08-2024 End: 06-08-2024 ambulatory [facility] Work Phone: Start: 06-08-2024 End: 06-08-2024 Patient encounter procedure [facility] Work Phone: Start: 05-04-2024 End: 05-04-2024 Patient encounter procedure Jimmy Miranda DPM Work Phone: [facility] Comment on above: Onychomycosis (Prima ry Dx); Pain in both feet; 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 Work Phone: Start: 01-28-2024 End: 01-28-2024 Patient encounter procedure [facility] Work Phone: Start: 01-01-2024 End: 01-01-2024 ambulatory [facility] Work Phone: Start: 01-01-2024 End: 01-01-2024 Patient encounter procedure [facility] Work Phone: Start: 12-25-2023 Non-patient / Non-visit [facility] [employer] Work Phone: Start: 12-02-2023 End: 12-02-2023 ambulatory [facility] Work Phone: Start: 12-02-2023 End: 12-02-2023 Patient encounter procedure [facility] Work Phone: Start: 11-07-2023 Non-patient / Non-visit [facility] [employer] Work Phone: Start: 08-01-2023 End: 08-01-2023 ambulatory Fatoumata Chase Other [facility] Other Start: 08-01-2023 Office outpatient vi sit 15 minutes Fatoumata Chase [facility] Start: 07-25-2023 End: 07-25-2023 ambulatory Morena Vera Other [facility] Other Start: 07-25-2023 Telephone encounter Morena Freire her [facility] Start: 07-24-2023 End: 07-24-2023 ambulatory Morena Vera Other [facility] Other Start: 07-24-2023 Office outpatient vi sit 15 minutes Morena Vera [facility] Start: 07-16-2023 End: 07-16-2023 ambulatory Fatoumata Salvatore Other [facility] Other Start: 07-16-2023 Office outpatient vi sit 25 minutes Fatoumatagaurav Chase [facility] Start: 05-24-2023 End: 05-24-2023 ambulatory Brendon Castelan Facility:[facility] Start: 05-22-2023 End: 05-22-2023 ambulatory Fatoumata Chase Other [facility] Other Start: 05-22-2023 Telephone encounter Fatoumata Salvatore [facility] Start: 05-21-2023 End: 05-21-2023 ambulatory Fatoumata Salvatore Other [facility] Other Start: 05-21-2023 Telephone encounter Fatoumata Salvatore [facility] Start: 05-08-2023 End: 05-08-2023 ambulatory Fatoumata Salvatore Other [facility] Other Start: 05-08-2023 Telephone encounter Fatoumata Salvatore [facility] Start: 04-26-2023 End: 04-26-2023 ambulatory Fatoumata Salvatore Other [facility] Other Start: 04-26-2023 Transitional care ma cezar srvc 14 day discharge Fatoumata Salvatore [facility] Start: 04-22-2023 End: 04-22-2023 ambulatory Fatoumata Chase Other [facility] Other Start: 04-22-2023 Telephone encounter Fatoumata Salvatore [facility] Start: 04-17-2023 End: 04-17-2023 ambulatory Fatoumata Chase Other [facility] Other Start: 04-17-2023 Telephone encounter Fatoumata Chase [facility] Start: 04-15-2023 End: 04-15-2023 ambulatory Fatoumata Chase Other [facility] Other Start: 04-15-2023 Telephone encounter Fatoumata Chase [facility] Start: 04-03-2023 Telephone encounter Fatoumata Chase [facility] Start: 04-03-2023 End: 04-03-2023 ambulatory MD Brendon Castelan Work Phone: [facility] Work Phone: Start: 04-03-2023 End: 04-03-2023 Patient encounter procedure MD Brendon Castelan Work Phone: [facility] Work Phone: Start: 03-26-2023 End: 03-26-2023 ambulatory Fatoumata Chase Other [facility] Other Start: 03-26-2023 Telephone encounter Fatoumata Chase [facility] Start: 03-25-2023 End: 03-25-2023 ambulatory Fatoumata Chase Other [facility] Other Start: 03-25-2023 Telephone encounter Fatoumata Chase [facility] Start: 03-18-2023 End: 03-18-2023 ambulatory Fatoumata Chase Other [facility] Other Start: 03-18-2023 Telephone encounter Fatoumata Chase [facility] Start: 03-13-2023 End: 03-13-2023 ambulatory Brendon Castelan Other [facility] Other Start: 03-13-2023 Telephone encounter [place] park [facility] Start: 03-05-2023 End: 03-05-2023 ambulatory Fatoumata Salvatore Other [facility] Other Start: 03-05-2023 Telephone encounter Fatoumata Salvatore [facility] Start: 03-02-2023 End: 03-02-2023 ambulatory Fatoumata Salvatore Other [facility] Other Start: 03-02-2023 Telephone encounter Fatoumata Salvatore [facility] Start: 02-28-2023 End: 02-28-2023 ambulatory Fatoumata Salvatore Other [facility] Other Start: 02-28-2023 Telephone encounter Fatoumata Salvatore [facility] Start: 02-25-2023 End: 02-25-2023 ambulatory Fatoumata Salvatore Other [facility] Other Start: 02-25-2023 Office outpatient ne w 45 minutes Fatoumata Chase [facility] Start: 01-25-2023 End: 01-28-2023 Evaluation and management of inpatient DR CHON LYNCH Facility: Start: 01-24-2023 End: 01-24-2023 ambulatory Brendon Castelan Other [facility] Other Start: 01-24-2023 Telephone encounter [place] [facility] Start: 01-21-2023 End: 01-21-2023 ambulatory Brendon Castelan Other [facility] Other Start: 01-21-2023 Telephone encounter [place] [facility] Start: 01-17-2023 End: 01-17-2023 Patient encounter procedure MD Brendon Castelan Work Phone: [facility] Work Phone: Start: 01-17-2023 End: 01-17-2023 ambulatory Brendon Castelan [facility] Other Start: 01-17-2023 Office outpatient vi sit 25 minutes Brendon Castelan [facility] Start: 01-17-2023 Telephone encounter [place] [facility] Start: 01-11-2023 End: 01-11-2023 ambulatory Brendon Castelan Other [facility] Other Start: 01-11-2023 Telephone encounter Brendon [place] [facility] Start: 01-08-2023 End: 01-08-2023 ambulatory Brendon Castelan Other [employer] Other Start: 01-08-2023 Telephone encounter [facility]on park [facility] Start: 01-03-2023 Office outpatient vi sit 25 minutes Brendon Castelan [facility] Start: 01-03-2023 Telephone encounter Brendon park [facility] Start: 01-03-2023 End: 01-03-2023 ambulatory Brendon Hurtadoon Facility:[facility] Start: 01-03-2023 End: 01-03-2023 ambulatory MD Brendon Castelan Work Phone: [facility] Work Phone: Start: 01-03-2023 End: 01-03-2023 Patient encounter procedure MD Brendon Castelan Work Phone: [facility] [place] Work Phone: Start: 01-02-2023 End: 01-02-2023 ambulatory Brendon Castelan Other [facility] Other Start: 01-02-2023 Telephone encounter Brendon park [facility] Start: 12-20-2022 End: 12-20-2022 ambulatory Brendon Castelan Other [facility] Other Start: 12-20-2022 Office outpatient vi sit 25 minutes Brendon Castelan [facility] Start: 12-19-2022 End: 12-19-2022 ambulatory Brendon Castelan Other [facility] Other Start: 12-19-2022 Telephone encounter [facility]on park [facility] Start: 12-18-2022 End: 12-18-2022 ambulatory Staci Elif Other [facility] Other Start: 12-18-2022 Office outpatient vi sit 25 minutes Staci Elif [facility] Start: 12-18-2022 Telephone encounter [facility]rendon park [facility] Start: 12-14-2022 End: 12-14-2022 ambulatory Brendon Castelan Other [facility] Other Start: 12-14-2022 Telephone encounter [facility]rendon park [facility] Start: 12-06-2022 End: 12-06-2022 ambulatory Brendon Castelan Other [facility] Other Start: 12-06-2022 Office outpatient vi sit 25 minutes Brendon Castelan [facility] Start: 12-06-2022 Telephone encounter [facility] park [facility] Start: 11-29-2022 End: 11-29-2022 ambulatory Brendon Castelan Other [facility] Other Start: 11-29-2022 Telephone encounter [facility]rendon park [facility] Start: 11-26-2022 End: 11-26-2022 ambulatory Staci Elif Facility:[facility] Start: 11-26-2022 End: 11-26-2022 ambulatory MD Brendon Castelan Work Phone: [facility] Work Phone: Start: 11-26-2022 End: 11-26-2022 Patient encounter procedure MD Brendon Castelan Work Phone: [facility] [place] Work Phone: Start: 11-20-2022 End: 11-20-2022 ambulatory Brendon Castelan Other [facility] Other Start: 11-20-2022 Telephone encounter Brendon park [facility] Start: 10-13-2022 End: 10-15-[address] DOCTOR LUKE Facility: Start: 10-01-2022 End: 10-01-2022 ambulatory Brendon Castelan Other [facility] Other Start: 10-01-2022 Office outpatient vi sit 25 minutes Brendon Hurtadoon [facility] Start: 09-06-2022 End: 09-06-2022 ambulatory Brendon Castelan Other [facility] Other Start: 09-06-2022 Office outpatient vi sit 25 minutes Brendon Castelan [facility] Start: 09-04-2022 End: 09-04-2022 ambulatory Brendon Hurtadoon Other [facility] Other Start: 09-04-2022 Telephone encounter Brendon S[place] park [facility] Start: 08-30-2022 End: 08-30-2022 ambulatory Staci Elif Other [facility] Other Start: 08-30-2022 Office outpatient vi sit 25 minutes Staci Elif [facility] Start: 08-28-2022 End: 08-28-2022 ambulatory Brendon Hurtadoon Other [facility] Other Start: 08-28-2022 Telephone encounter Brendon S[place] park [facility] Start: 07-31-2022 End: 07-31-2022 ambulatory Brendon Castelan Other [facility] Other Start: 07-31-2022 Telephone encounter Brendon Bryantboogie vivian [facility] Start: 07-19-2022 End: 07-19-2022 ambulatory Brendon Castelan Other [facility] Other Start: 07-19-2022 Office outpatient vi sit 25 minutes Brendon Castelan [facility] Start: 07-18-2022 End: 07-18-2022 ambulatory Staci Elif Other [facility] Other Start: 07-18-2022 Office outpatient ne w 45 minutes Staci Asencio [facility] Start: 07-18-2022 Telephone encounter Staci Asencio [facility] Start: 06-28-2022 End: 06-28-2022 ambulatory Brendon Castelan Other [facility] Other Start: 06-28-2022 Telephone encounter [facility]on park [facility] Start: 06-20-2022 End: 06-20-2022 ambulatory Brendon Castelan Other [employer] Other Start: 06-20-2022 Telephone encounter [place] park [facility] Start: 06-18-2022 End: 06-18-2022 ambulatory Brendon Castelan Other [employer] Other Start: 06-18-2022 Telephone encounter [facility] park [facility] Start: 06-15-2022 End: 06-15-2022 ambulatory Brendon Castelan Facility:[facility] Start: 06-11-2022 End: 06-11-2022 ambulatory Brendon Castelan Other [employer] Other Start: 06-11-2022 Telephone encounter [place]on park [facility] Start: 06-08-2022 End: 06-08-2022 ambulatory Brendon Castelan Facility:[facility] Start: 06-08-2022 End: 06-08-2022 Patient encounter procedure MD Brendon Castelan Work Phone: [facility] [place] Start: 06-08-2022 ambulatory Facility:[id number] Start: 06-07-2022 End: 06-07-2022 ambulatory Brendon Castelan Other [facility] Other Start: 06-07-2022 Office outpatient vi sit 25 minutes Brendon Castelan [facility] Start: 06-07-2022 Telephone encounter [place]rendon park [facility] Start: 06-04-2022 End: 06-04-2022 ambulatory Brendon Castelan Other [facility] Other Start: 06-04-2022 Telephone encounter [place] park [facility] Start: 05-31-2022 End: 05-31-2022 ambulatory Brendon Castelan Other [employer] Other Start: 05-31-2022 Telephone encounter [place] [facility] Start: 05-26-2022 End: 05-26-2022 Patient encounter procedure MD Brendon Castelan Work Phone: [facility] Start: 05-24-2022 End: 05-24-2022 ambulatory Brendon Castealn Other [employer] Other Start: 05-24-2022 Telephone encounter [facility]on park [facility] Start: 05-17-2022 End: 05-17-2022 Patient encounter procedure MD Brendon Castelan Work Phone: [facility] [place] Start: 05-09-2022 End: 05-09-2022 ambulatory Brendon Castelan Other [employer] Other Start: 05-09-2022 Telephone encounter [facility] park [facility] Start: 05-07-2022 End: 05-07-2022 ambulatory Brendon Castelan Other [employer] Other Start: 05-07-2022 Telephone encounter [place] park [facility] Start: 04-30-2022 End: 04-30-2022 ambulatory Brendon Castelan Other [employer] Other Start: 04-30-2022 Telephone encounter [facility] park [facility] Start: 03-02-2022 End: 03-02-[address] DOCTOR LUKE Facility: Start: 02-14-2022 End: 02-14-2022 ambulatory Brendon Annelise Other [employer] Other Start: 02-14-2022 Telephone encounter [facility] park [facility] Start: 02-13-2022 End: 02-13-2022 ambulatory Brendon Castelan Other [facility] Other Start: 02-13-2022 Telephone encounter [facility]rendon park [facility] Start: 02-13-2022 End: 02-15-2022 Evaluation and management of inpatient DR HEALY [facility] Facility: Start: 01-08-2022 End: 01-08-2022 ambulatory Brendon Castelan Other [facility] Other Start: 01-08-2022 Office outpatient vi sit 25 minutes Brendon Hurtadoon [facility] Start: 12-18-2021 End: 12-18-2021 ambulatory Brendon Castelan Other [facility] Other Start: 12-18-2021 Telephone encounter [place]on park [facility] Start: 11-30-2021 End: 11-30-2021 ambulatory Brendon Castelan Other [facility] Other Start: 11-30-2021 Office outpatient vi sit 15 minutes Brendon Hurtadoon [facility] Start: 10-16-2021 End: 10-16-2021 ambulatory Brendon Hurtadoon Other [facility] Other Start: 10-16-2021 Telephone encounter [place] park [facility] Start: 08-28-2021 End: 08-28-2021 ambulatory Brendon Hurtadoon Other [facility] Other Start: 08-28-2021 Office outpatient vi sit 25 minutes Brendon Castelan [facility] Start: 08-03-2021 End: 08-03-2021 ambulatory Brendon Castelan Other [facility] Other Start: 08-03-2021 Office outpatient vi sit 15 minutes Brendon Castelan [facility] Start: 08-01-2021 End: 08-01-2021 ambulatory Bobby Ramesh Other [facility] [employer] Other Start: 08-01-2021 Office outpatient vi sit 15 minutes Bobby Ramesh [facility] Start: 07-10-2021 Telephone encounter Brendon park [facility] Start: 07-07-2021 Office outpatient vi sit 15 minutes [place] [facility] Start: 07-07-2021 Telephone encounter Brendon park [facility] Start: 05-25-2021 End: 05-25-2021 ambulatory Brendon Castelan Other [employer] Other Start: 05-25-2021 Office outpatient vi sit 25 minutes [facility] Procedures Date Procedure Procedure Detail Performing Clinician Start: 02-02-2025 CRYOTHERAPY SKIN LESION Zulema Jin MD Work Phone: Start: 02-02-2025 SKIN / NAIL BIOPSY Ole Jin MD Work Phone: Start: 01-17-2023 Urine culture MD Brendon Castelan Work Phone: Start: 11-26-2022 CT of chest without contrast MD Brendon Castelan Work Phone: Start: 06-08-2022 CT of chest without contrast MD Brendon Castelan Work Phone: Start: 05-26-2022 Plain chest X-ray MD Power Castelan Work Phone: Plan of Treatment Date Care Activity Detail Author Start: 05-04-2025 End: 05-04-2025 Patient encounter procedure 05/04/2025 3:15 PM EDT Procedure Visit [facility] [address] [place] [id number] Jimmy Miranda DPM [address] [place] [address] Arrived [facility] Comment on above: Arrived Start: 04-21-2025 End: 04-21-2025 Patient encounter procedure 04/21/2025 2:30 PM EDT Procedure Visit [facility] [address] [place] [id number] Jimmy Miranda, DPM [address] [place] [address] [facility] Start: 02-02-2025 End: 02-02-2025 Patient encounter procedure [facility] Comment on above: Arrived Start: 01-18-2025 End: 01-18-2025 Patient encounter procedure 01/18/2025 3:15 PM EDT Procedure Visit [facility] [address] [place] [id number] Jimmy Miranda, DPM [address] [place] [address] Arrived [facility] Comment on above: Arrived Start: 10-20-2024 End: 10-20-2024 Patient encounter procedure 10/20/2024 2:15 PM EST Procedure Visit [facility] [address] [place] [id number] Jimmy Miranda, DPM [address] [place] [address] Arrived [facility] Comment on above: Arrived Start: 01-01-2024 Patient referral [facility] Work Phone: Start: 01-03-2023 Bacteria identified in Urine by Culture [facility] Comprehensive metabo lic 2000 panel - Serum or Plasma [facility] Dermatopathology exam Dermatopat hology exam Pathology and Cytology Timed Neoplasm of unspecified behavior of bone, soft tissue, and skin Release Upon Ordering for 1 Occurrences starting 02/02/2025 [facility] Work Phone: Comment on above: Release Upon Ordering for 1 Occurrences starting 02/02/2025 Patient referral [facility] Work Phone: US Heart Transthoracic [facility] Immunizations Immunization Date Immunization Notes Care Provider Fa cility 06-08-2024 influenza, high dose seasonal, preservative-free [facility] 07-19-2022 influenza, high dose seasonal, preservative-free Staci Elif Other [facility] [employer] Other 07-19-2022 influenza virus vaccine, unspecified formulation [facility] 08-29-2021 COVID-19 Vaccine Moderna - Documentation Purposes Only Staci Elif Other [facility] 08-03-2021 influenza, high dose seasonal, preservative-free Brendon Castelan Other [facility] [employer] Other 08-03-2021 influenza virus vaccine, unspecified formulation [facility] 11-22-2020 COVID-19 Vaccine Moderna - Documentation Purposes Only Staci Elif Other [facility] 10-24-2020 COVID-19 Vaccine Moderna - Documentation Purposes Only Staci Elif Other [facility] 07-08-2020 influenza virus vaccine, unspecified formulation [facility] 07-08-2020 influenza, high dose seasonal, preservative-free Brendon Castelan Other [employer] Other 05-26-2019 pneumococcal polysaccharide vaccine, 23 valent Brendon Castelan Other [facility] 10-10-2017 Toradol per 15 mg Brendon fowler Other [employer] Other 08-06-2017 influenza, injectabl e, quadrivalent, contains preservative Brendon Castelan Other [facility] [employer] Other 08-06-2017 influenza, injectabl e, quadrivalent, preservative free [facility] 01-29-2017 pneumococcal conjuga te vaccine, 13 valent Brendon Castelan Other [facility] 07-03-2016 influenza, injectabl e, quadrivalent, contains preservative Brendon Castelan Other [facility] [employer] Other 07-03-2016 influenza, injectabl e, quadrivalent, preservative free [facility] 07-05-2014 influenza, injectabl e, quadrivalent, contains preservative Brendon Castelan Other [facility] 06-26-2012 influenza, injectabl e, quadrivalent, contains preservative Brendon Castelan Other [facility] Payers Date Payer Category Payer Self-pay [id number] 2002 Medicare [id number] 2002 Private Health Insurance [employer] [place] [employer] [id number] 2002 Unknown AAR AAR [id number] 2002-Present [address] [place] [address] [id number] 1959 Medicare [id number] 1959 Unknown [id number] [id number] 1937 Unknown [id number] 2.16.840.1.679709.3.579.2 .356 1937 Unknown [id number] 2.16.840.1.466370.3.579.2 .593 1937 Unknown [id number] 2.16.840.1.082520.3.579.2 .593 1937 Unknown [id number] 2.16.840.1.831819.3.579.2 .593 1937 Unknown [id number] 2.16.840.1.306007.3.579.2 .593 1937 Unknown [id number] 2.16.840.1.745598.3.579.2 .1259 1937 Unknown [id number] 2.16.840.1.604027.3.579.2 .1259 1937 Unknown [id number] 2.16.840.1.348152.3.579.2 .1259 1937 Unknown [id number] 2.16.840.1.192690.3.579.2 .1259 Unknown [id number] Unknown [id number] 2.16.840.1.753458.3.579.2 .531 Unknown [id number] 2.16.840.1.244953.3.579.2 .531 Unknown [id number] 2.16.840.1.958994.3.579.2 .531 Unknown [id number] 2.16.840.1.807013.3.579.2 .531 Unknown [id number] 2.16.840.1.756579.3.579.2 .531 Unknown [id number] 2.16.840.1.812621.3.579.2 .531 Unknown [id number] 2.16.840.1.938458.3.579.2 .531 Social History Date Type Detail Facility Unknown if ever smoked [facility] [employer] Other Start: 05-04-2024 End: 02-02-2025 Sex Assigned At [facility] Other Start: 07-07-2021 End: 03-05-2023 Tobacco smoking status NHIS Never smoked tobacco (finding) [facility] Start: 1935 Sex Assigned At Female F [facility] Start: 03-05-2023 Tobacco use and exposure Smokeless tobacco non-user [facility] Start: 05-04-2024 End: 05-04-2025 Alcoholic beverage intake Defer [facility] Start: 05-04-2024 End: 02-02-2025 History of Social function [facility] Start: 1935 Sex assigned at Not on file [facility] Start: 12-07-2024 Sex Female (finding) [facility] Medical Equipment Procedure Code Equipment Code Equipment Origin al Text Equipment Identifier Dates Start: 12-13-2016 Blood Sugar Diagnostic (Blood Glucose Test) strip Start: 03-06-2024 Blood Sugar Diagnostic (Blood Glucose Test) strip Start: 03-06-2024 Clinical Notes 05-25-2021 to 05-04-2025 Jimmy Miranda DPM - 05/04/2025 3:15 PM Dereje Jin MD - 02/02/2025 3:30 PM Marisel Miranda DPM - 01/18/2025 3:15 PM Marisel Miranda DPM - 10/20/2024 2:15 PM EST Note Date & Type Note Facility 05-04-2025 History of Presen t illness Narrative Images from the original note were not included. HPI: Patient presents to clinic for diabetic nailcare. They were diagnosed with diabetes chronic. She states that they has no pain in the feet. There is pain related to the toenails, especially with shoe gear and pressure. They have difficulty with trimming the nails due to trouble reaching them and because of the thickness in the nail. Patient has not problems with slow healing wounds or sores on the feet. Patient does not have burning, tingling and numbness in the feet. Patient's PCP is Salvatore. BS was 134 today. Date of Last visit: 12/01/24. Exam: Diabetic Shoe & Insert: Previous amputation of the other foot, or part of the footNo. History of previous foot ulceration of foot No. History of pre-ulcerative callous of foot: No. Peripheral of Neuropathy with evidence of callous formation: No. Foot deformity Yes- hammertoes, fat pad atrophy. Poor circulation:Yes- venous insufficency, swelling. General Examination: GENERAL EXAMINATIONalert, well hydrated, in no distress , awake, aware of surroundings . FOOT EXAM: Date of Last Foot Exam 05/04/25 Vascular: DORSALIS PEDIS PULSE: 0/4, bilaterally. POSTERIOR TIBIAL PULSE: 0/4, bilaterally. TEMPERATURE GRADIENT:within normal limits, warm to cool. EDEMA:moderate to the bilateral ankle, significant +2 pitting left lower extremity. CAPILLARY FILLING TIME(sec):bilateral, digits 1-5, less than 3 seconds. Neurologic: VIBRATORY:normal. SEMMES-NIK 5.07 MONOFILAMENTnormal. Dermatologic: HYPERKERATOSIS:none. NAIL PATHOLOGY:digits 1-5 bilateral are intact. SKIN PATHOLOGY:thin, shiny , atrophic, dry, bilateral, fat pad atrophy , decreased hair growth. Nail Pathology: Left Foot: 1 (great toe)Long, Thick, Brittle, Incurvated. 2Long, Brittle. 3Long, Brittle. 4Long, Brittle. 5Long, Thick, Crumbly, Brittle, Dystrophic. Nail Pathology: Right Foot: 1 (great toe)Long, Thick, Crumbly, Brittle, Dystrophic, Incurvated. 2Long, Brittle. 3Long, Brittle. 4Long, Brittle. 5Long, Thick, Brittle, Dystrophic. Orthopedic: FOOT MORPHOLOGY:normal. DEFORMITIES:Hammer toe 2-5, fat pad atrophy bilateral plantar foot. MUSCLE STRENGTH5/5 for all pedal groups tested. Modifier: Q8 Assessments: 1. Dermatophytosis of nail - B35.1 (Primary) 2. Pain in right foot - M79.671 3. Pain in left foot - M79.672 4. Localized edema - R60.0 5. Acquired hammer toe of left foot - M20.42 6. Acquired hammer toe of right foot - M20.41 7. 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 Nails were debrided in length and thickness by manual and mechanical means. 2. Advised patient on continued proper diabetic foot care including daily monitoring of their feet for any new complaints or concerns that may arise. 3. Discussed importance of tight blood sugar control to prevent future complications. 4. RTC: 9-12 weeks or as needed if problems arise. Diabetes: 1. A Diabetic Foot Screening Exam was performed and the patient was educated on the foot complications related to Diabetes. Instructed to contact our office if any foot problems develop before next visit. 2. Patient was instructed on the continued importance of diabetic foot care along with proper diet and keeping their blood sugar under control to prevent complications. 3. Patient would like to proceed with extra depth diabetic shoes and insoles. We discussed the needed paperwork from their PCP in order to proceed with ordering these if they would like to obtain them. The patient fits the criteria for shoes and inserts based upon diabetes, hammertoes, neuropathy. Referral was placed for the patient to go to [facility] in [place] for their DM shoes and inserts. 4. Patient will be contacted for appointment information once pre-certification has been completed if required. documented in this encounter [facility] 02-02-2025 History of Presen t illness Narrative Images from the original note were not included. Lesions: Location: Face Duration: Few months Quality: denies pain, denies itch, denies bleeding Associated symptoms: non-healing, red, rough Treatments: none Lesion # 2: Location: Back Duration: Few months Quality: denies pain, denies itch, denies bleeding Associated symptoms: non-healing, red Treatments: none Location #3: Left great toe Duration: few months Quality: denies pain, denies itch, denies bleeding Modifying factors: denies trauma to area Associated symptoms: swelling Treatments: none New patient All pertinent medical history, medications, and allergies were reviewed. General Exam: alert, oriented to person, place, and time, normal affect, well appearing Unaccompanied A focused exam completed based on patient reported problems, see below: Skin Exam 1. SEBORRHEIC KERATOSIS (3) Head - Anterior (Face), Left Upper Back, Right Hand - Posterior Stuck on verrucous, louie-brown papules and plaques. Patient was counseled regarding these benign growths. Removal is normally not necessary, but they may be removed if they are symptomatic or for cosmetic reasons. 2. NEOPLASM OF UNSPECIFIED BEHAVIOR OF BONE, SOFT TISSUE, AND SKIN Right Submandibular Area Irregularly pigmented papule Lesion biopsy Type of biopsy: tangential Informed consent: discussed and consent obtained Informed consent comment: The risks and benefits of the biopsy were discussed. Risks include but are not limited to bleeding, infection, scarring, pain, and nerve damage. An opportunity to ask questions prior to the procedure was permitted and all questions were answered. Patient was prepped and draped in usual sterile fashion: area cleansed with alcohol. Anesthesia: the lesion was anesthetized in a standard fashion Anesthetic: 1% lidocaine w/ epinephrine 1-100,000 buffered w/ 8.4% NaHCO3 Instrument used: DermaBlade Hemostasis achieved with: electrodesiccation Outcome: patient tolerated procedure well Outcome comment: The specimen was placed in a prelabeled formalin container to be sent for pathology Post-procedure details: sterile dressing applied and wound care instructions given Post-procedure details comment: Emphasized need to contact clinic for any signs of infection, uncontrollable bleeding, or complications. Dressing type: bandage Additional details: Photo taken yes Amount of lidocaine used: 1.0 cc Specimen A - Dermatopathology exam Differential Diagnosis: melanoma vs SK Check Margins: No Size of lesion: 2.3 x 2.2 cm 3. SEBORRHEIC KERATOSIS, INFLAMED (2) Right Dorsal Hand (2) [place] and brown stuck on verrucous scaly papule with surrounding erythema The patient was informed that symptomatic seborrheic keratoses are benign growths that become inflamed, itchy, tender, traumatized, caught on clothing, or bleed. Symptomatic lesions can be treated with cryotherapy or curretage. Thicker lesions treated with cryotherapy may require more than one treatment. The patient was instructed to notify the office if abnormal redness or tenderness develops at the treatment site. Cryotherapy today, see procedure note. Diagnosis: Inflamed seborrheic keratosis Indication: Inflamed Consent: Verbal consent was obtained and risks were discussed, including, but not limited to risks of scarring, darker or billboard erector helper pigmentary changes, recurrence, incomplete removal and infection. Method: Liquid nitrogen was used to treat the lesion(s) with two 5-10 second freeze-thaw cycles Number of lesions treated: 2 Post-procedure instructions: Instructions were given orally and in writing. The office will be contacted if the lesion fails to resolve despite treatment, or if a side effect develops such as abnormal crusting, scabbing, redness or tenderness Cryotherapy, skin lesion - Right Dorsal Hand (2) No evidence of disease on left great toe. Next Visit: pending biopsy results documented in this encounter [facility] 01-18-2025 History of Presen t illness Narrative Images from the original note were not included. HPI: Patient presents to clinic for diabetic nailcare. They were diagnosed with diabetes chronic. She states that they has no pain in the feet. There is pain related to the toenails, especially with shoe gear and pressure. They have difficulty with trimming the nails due to trouble reaching them and because of the thickness in the nail. Patient has not problems with slow healing wounds or sores on the feet. Patient does not have burning, tingling and numbness in the feet. Patient's PCP is Salvatore. BS was 134 today. Date of Last visit: 12/01/24. Exam: Diabetic Shoe & Insert: Previous amputation of the other foot, or part of the footNo. History of previous foot ulceration of foot No. History of pre-ulcerative callous of foot: No. Peripheral of Neuropathy with evidence of callous formation: No. Foot deformity Yes- hammertoes, fat pad atrophy. Poor circulation:Yes- venous insufficency, swelling. General Examination: GENERAL EXAMINATIONalert, well hydrated, in no distress , awake, aware of surroundings . FOOT EXAM: Date of Last Foot Exam 01/18/25 Vascular: DORSALIS PEDIS PULSE: 0/4, bilaterally. POSTERIOR TIBIAL PULSE: 0/4, bilaterally. TEMPERATURE GRADIENT:within normal limits, warm to cool. EDEMA:moderate to the bilateral ankle, significant +2 pitting left lower extremity. CAPILLARY FILLING TIME(sec):bilateral, digits 1-5, less than 3 seconds. Neurologic: VIBRATORY:normal. SEMMES-NIK 5.07 MONOFILAMENTnormal. Dermatologic: HYPERKERATOSIS:none. NAIL PATHOLOGY:digits 1-5 bilateral are intact. SKIN PATHOLOGY:thin, shiny , atrophic, dry, bilateral, fat pad atrophy , decreased hair growth. Nail Pathology: Left Foot: 1 (great toe)Long, Thick, Brittle, Incurvated. 2Long, Brittle. 3Long, Brittle. 4Long, Brittle. 5Long, Thick, Crumbly, Brittle, Dystrophic. Nail Pathology: Right Foot: 1 (great toe)Long, Thick, Crumbly, Brittle, Dystrophic, Incurvated. 2Long, Brittle. 3Long, Brittle. 4Long, Brittle. 5Long, Thick, Brittle, Dystrophic. Orthopedic: FOOT MORPHOLOGY:normal. DEFORMITIES:Hammer toe 2-5, fat pad atrophy bilateral plantar foot. MUSCLE STRENGTH5/5 for all pedal groups tested. Modifier: Q8 Assessments: 1. Dermatophytosis of nail - B35.1 (Primary) 2. Pain in right foot - M79.671 3. Pain in left foot - M79.672 4. Localized edema - R60.0 5. Acquired hammer toe of left foot - M20.42 6. Acquired hammer toe of right foot - M20.41 7. 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 Nails were debrided in length and thickness by manual and mechanical means. 2. Advised patient on continued proper diabetic foot care including daily monitoring of their feet for any new complaints or concerns that may arise. 3. Discussed importance of tight blood sugar control to prevent future complications. 4. RTC: 9-12 weeks or as needed if problems arise. documented in this encounter [facility] 10-20-2024 History of Presen t illness Narrative Images from the original note were not included. HPI: Patient presents to clinic for diabetic nailcare. They were diagnosed with diabetes chronic. She states that they has no pain in the feet. There is pain related to the toenails, especially with shoe gear and pressure. They have difficulty with trimming the nails due to trouble reaching them and because of the thickness in the nail. Patient has not problems with slow healing wounds or sores on the feet. Patient does not have burning, tingling and numbness in the feet. Patient's PCP is Salvatore. BS was 134 today. Date of Last visit: 12/02/23 pt is scheduled to see PCP 06/09. Exam: Diabetic Shoe & Insert: Previous amputation of the other foot, or part of the footNo. History of previous foot ulceration of foot No. History of pre-ulcerative callous of foot: No. Peripheral of Neuropathy with evidence of callous formation: No. Foot deformity Yes- hammertoes, fat pad atrophy. Poor circulation:Yes- venous insufficency, swelling. General Examination: GENERAL EXAMINATIONalert, well hydrated, in no distress , awake, aware of surroundings . FOOT EXAM: Date of Last Foot Exam 10/20/24 Vascular: DORSALIS PEDIS PULSE:2/4, bilaterally. POSTERIOR TIBIAL PULSE:2/4, bilaterally. TEMPERATURE GRADIENT:within normal limits, warm to cool. EDEMA:moderate to the bilateral ankle, significant +2 pitting left lower extremity. CAPILLARY FILLING TIME(sec):bilateral, digits 1-5, less than 3 seconds. Neurologic: VIBRATORY:normal. SEMMES-NIK 5.07 MONOFILAMENTnormal. Dermatologic: HYPERKERATOSIS:none. NAIL PATHOLOGY:digits 1-5 bilateral are intact. SKIN PATHOLOGY:thin, shiny , atrophic, dry, bilateral, fat pad atrophy , decreased hair growth. Nail Pathology: Left Foot: 1 (great toe)Long, Thick, Brittle, Incurvated. 2Long, Brittle. 3Long, Brittle. 4Long, Brittle. 5Long, Thick, Crumbly, Brittle, Dystrophic. Nail Pathology: Right Foot: 1 (great toe)Long, Thick, Crumbly, Brittle, Dystrophic, Incurvated. 2Long, Brittle. 3Long, Brittle. 4Long, Brittle. 5Long, Thick, Brittle, Dystrophic. Orthopedic: FOOT MORPHOLOGY:normal. DEFORMITIES:Hammer toe 2-5, fat pad atrophy bilateral plantar foot. MUSCLE STRENGTH5/5 for all pedal groups tested. Extra Depth shoes with DM inserts fit well to the patient's feet with no areas of rubbing or pain. Assessments: 1. Dermatophytosis of nail - B35.1 (Primary) 2. Pain in right foot - M79.671 3. Pain in left foot - M79.672 4. Localized edema - R60.0 5. Acquired hammer toe of left foot - M20.42 6. Acquired hammer toe of right foot - M20.41 7. 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 Nails were debrided in length and thickness by manual and mechanical means. 2. Advised patient on continued proper diabetic foot care including daily monitoring of their feet for any new complaints or concerns that may arise. 3. Discussed importance of tight blood sugar control to prevent future complications. 4. RTC: 9-12 weeks or as needed if problems arise. documented in this encounter [facility] 05-04-2024 History of Presen t illness Narrative Images from the original note were not included. HPI: Patient presents to clinic for diabetic nailcare. They were diagnosed with diabetes chronic. She states that they has no pain in the feet. There is pain related to the toenails, especially with shoe gear and pressure. They have difficulty with trimming the nails due to trouble reaching them and because of the thickness in the nail. Patient has not problems with slow healing wounds or sores on the feet. Patient does not have burning, tingling and numbness in the feet. Patient's PCP is Salvatore. BS was 134 today. Date of Last visit: 12/02/23 pt is scheduled to see PCP 06/09. Exam: Diabetic Shoe & Insert: Previous amputation of the other foot, or part of the footNo. History of previous foot ulceration of foot No. History of pre-ulcerative callous of foot: No. Peripheral of Neuropathy with evidence of callous formation: No. Foot deformity Yes- hammertoes, fat pad atrophy. Poor circulation:Yes- venous insufficency, swelling. General Examination: GENERAL EXAMINATIONalert, well hydrated, in no distress , awake, aware of surroundings . FOOT EXAM: Date of Last Foot Exam 05/04/24 Vascular: DORSALIS PEDIS PULSE:2/4, bilaterally. POSTERIOR TIBIAL PULSE:2/4, bilaterally. TEMPERATURE GRADIENT:within normal limits, warm to cool. EDEMA:moderate to the bilateral ankle, significant +2 pitting left lower extremity. CAPILLARY FILLING TIME(sec):bilateral, digits 1-5, less than 3 seconds. Neurologic: VIBRATORY:normal. SEMMES-NIK 5.07 MONOFILAMENTnormal. Dermatologic: HYPERKERATOSIS:none. NAIL PATHOLOGY:digits 1-5 bilateral are intact. SKIN PATHOLOGY:thin, shiny , atrophic, dry, bilateral, fat pad atrophy , decreased hair growth. Nail Pathology: Left Foot: 1 (great toe)Long, Thick, Brittle, Incurvated. 2Long, Brittle. 3Long, Brittle. 4Long, Brittle. 5Long, Thick, Crumbly, Brittle, Dystrophic. Nail Pathology: Right Foot: 1 (great toe)Long, Thick, Crumbly, Brittle, Dystrophic, Incurvated. 2Long, Brittle. 3Long, Brittle. 4Long, Brittle. 5Long, Thick, Brittle, Dystrophic. Orthopedic: FOOT MORPHOLOGY:normal. DEFORMITIES:Hammer toe 2-5, fat pad atrophy bilateral plantar foot. MUSCLE STRENGTH5/5 for all pedal groups tested. Extra Depth shoes with DM inserts fit well to the patient's feet with no areas of rubbing or pain. Assessments: 1. Dermatophytosis of nail - B35.1 (Primary) 2. Pain in right foot - M79.671 3. Pain in left foot - M79.672 4. Localized edema - R60.0 5. Acquired hammer toe of left foot - M20.42 6. Acquired hammer toe of right foot - M20.41 7. 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 Nails were debrided in length and thickness by manual and mechanical means. 2. Advised patient on continued proper diabetic foot care including daily monitoring of their feet for any new complaints or concerns that may arise. 3. Discussed importance of tight blood sugar control to prevent future complications. 4. RTC: 9-12 weeks or as needed if problems arise. documented in this encounter [facility] 08-01-2023 Evaluation note Encounter Date Diagnosis Assessment Notes Jul, Cutaneous candidiasis (ICD-10 - B37.2) hydration and lubrication, dove soap, triple rinse clothing and linens Jul, Type 2 diabetes mellitus with hyperglycemia, without long-term current use of insulin (ICD-10 - E11.65) States was hypoglycemic on Januvia. will stop med and monitor glucose. [email or web address] Other 11-09-2023 History general Narrative - Reported* [...] surgery Hospitalization History SEE ABOVE [place] [facility] [place] [facility] 8 Hospitalization History UTI 2021 Hospitalization [facility]20[email or web address] Other 11-08-2023 Evaluation note* Encounter Date Diagnosis Assessment Notes Treatment Notes Treatment Clinical Notes Jul, Weakness (ICD-10 - R53.1) Pt was unable to collect a urine sample in the office today. Orders given to take to [facility] to collect a sample. Discussed will call with results as soon as available. Pt, pt daughter and verbalzies understanding and agrees to plan of care. Jul, Chills (ICD-10 - R68.83) Jul, Frequent UTI (ICD-10 - N39.0) [facility] Other 10-31-2023 Evaluation note* Encounter Date Diagnosis [...] back pain is improved from 06/28 OV. [facility] Other 10-31-2023 Evaluation note* Encounter Date Diagnosis Assessment Notes Treatment Notes Treatment Clinical Notes Jun, Cough (ICD-10 - R05.9) Jun, Interstitial lung disease (ICD-10 - J84.9) Your breathing test showed minimal change since 06/15/2022. Will observe respiratory symptoms and order testing if and when needed. Jun, Pneumonitis (ICD-10 - J18.9) Jun, Bronchiectasis 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 (ICD-10 - J47.9) [facility] Other 10-31-2023 History general Narrative - Reported* Type Description Date Medical History Esophageal reflux Medical History sleep apnea with cpap Medical History LBP Medical History allergic rhinitis Medical History hypoglycemia in the morning Medical History Hypoglycaemia NOS Medical History LUMBAR SPONDYLOSIS/RADICULOPATHY Medical History HTN Medical History ARTHRITIS Medical History HLD Medical History lactose intolerance Medical History Covid 03/2022 while in the [place] Medical History interstitial lung disease Medical [...] History UTI 2021 [facility]ization [email or web address] Other 09-07-2023 History general Narrative - Reported* [...] surgery Hospitalization History SEE ABOVE Hospitalization [place] [facility] [place] 201 8 Hospitalization History UTI 2021 [email or web address] Other 09-06-2023 History general Narrative - Reported* [...] surgery Hospitalization History SEE ABOVE Hospitalization History [facility] [place] 201 8 Hospitalization History UTI 2021 [email or web address] Other 08-21-2023 History general Narrative - Reported* Type Description Date Medical History Esophageal reflux Medical History sleep apnea with cpap Medical History LBP Medical History allergic rhinitis Medical History hypoglycemia in the morning Medical History Hypoglycaemia NOS Medical History LUMBAR SPONDYLOSIS/RADICULOPATHY Medical History HTN Medical History ARTHRITIS Medical History HLD Medical History lactose intolerance Medical History Covid 03/2022 while in the [place] Surgical History bladder surgery Surgical History [...] surgery Hospitalization History SEE ABOVE Hospitalization History [facility] [place]ole[facility] 201 8 Hospitalization History UTI 2021 [email or web address] Other 08-11-2023 Evaluation note* Encounter Date Diagnosis [...] avoid open toed shoes. Check feet daily. [email or web address] Other 08-11-2023 Evaluation note* Encounter Date Diagnosis [...] avoid open toed shoes. Check feet daily. [email or web address] Other 08-03-2023 History general Narrative - Reported* [...] History UTI 2021 Hospitalization [email or web address] Other 08-01-2023 History general Narrative - Reported* [...] History UTI 2021 [facility]ization [email or web address] Other 07-19-2023 Evaluation note* Encounter Date Diagnosis Assessment Notes Treatment Notes Treatment Clinical Notes Mar, Type 2 diabetes mellitus 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, unspecified whether fpc insulin use (ICD-10 - E11.9) [email or web address] Other 07-03-2023 Evaluation note* Encounter Date Diagnosis Assessment Notes Treatment Notes Treatment Clinical Notes Mar, Type 2 diabetes mellitus 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, 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) [email or web address] Other 07-03-2023 History general Narrative - Reported* [...] surgery Hospitalization History SEE ABOVE Hospitalization History [facility] [place] 201 8 Hospitalization History UTI 2021 [email or web address] Other 06-23-2023 History general Narrative - Reported* [...] surgery Hospitalization History SEE ABOVE Hospitalization History [facility] [place] 201 8 Hospitalization History UTI 2021 [email or web address] Other 06-20-2023 History general Narrative - Reported* [...] surgery Hospitalization History SEE ABOVE Hospitalization History [facility] [place] 201 8 Hospitalization History UTI 2021 [email or web address] Other 06-17-2023 History general Narrative - Reported* [...] surgery Hospitalization History SEE ABOVE Hospitalization History [facility] [place] 201 8 Hospitalization History UTI 2021 [facility] History [email or web address] Other 06-12-2023 Evaluation note* Encounter Date Diagnosis [...] vomiting (ICD-10 - R11.0) cover with zofran. [facility] Other 05-12-2023 History general Narrative - Reported* [...] surgery Hospitalization History SEE ABOVE Hospitalization History [facility] [place] 201 8 Hospitalization History UTI 2021 [email or web address] Other 05-08-2023 Evaluation note* Encounter Date Diagnosis Assessment Notes Treatment Notes Treatment Clinical Notes January, Type 2 diabetes mellitus 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, unspecified whether fpc insulin use (ICD-10 - E11.9) January, Essential hypertension (ICD-10 - I10) January, Dependent edema (ICD-10 - R60.9) [facility] Other 05-05-2023 History general Narrative - Reported* Type Description Date Medical History Esophageal reflux Medical History sleep apnea with cpap Medical History LBP Medical History allergic rhinitis Medical History hypoglycemia in the morning Medical History Hypoglycaemia NOS Medical History LUMBAR SPONDYLOSIS/RADICULOPATHY Medical History HTN Medical History ARTHRITIS Medical History HLD Medical History lactose intolerance Medical History Covid 03/2022 while in the [place] Surgical History bladder surgery Surgical History [...] surgery Hospitalization History SEE ABOVE Hospitalization History [facility] [place] 201 8 Hospitalization History UTI 2021 [facility] History [email or web address] Other 05-04-2023 Evaluation note* Encounter Date Diagnosis [...] Suspected urinary tract infection (ICD-10 - R39.89) [facility] Other 04-26-2023 History general Narrative - Reported* [...] surgery Hospitalization History SEE ABOVE Hospitalization History [facility] [place] 201 8 Hospitalization History UTI 2021 Hospitalization History [facility]20[email or web address] Other 04-25-2023 History general Narrative - Reported* [...] History UTI 2021 [facility]ization [email or web address] Other 04-20-2023 Evaluation note* Encounter Date Diagnosis [...] a day. [employer] was called into [facility]. Dec, GERD (gastroesophageal reflux disease) (ICD-10 - K21.9) Dec, Type 2 diabetes mellitus 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, unspecified whether fpc insulin use (ICD-10 - E11.9) Type 2 [...] reviewed. Taking all meds as directed reinforced. [facility] Other 04-20-2023 History general Narrative - Reported* [...] surgery Hospitalization History SEE ABOVE Hospitalization History [facility] [place] 201 8 Hospitalization History UTI 2021 [facility]ization History [facility]20[email or web address] Other 04-14-2023 History general Narrative - Reported* [...] surgery Hospitalization History SEE ABOVE Hospitalization History [facility] [place] 201 8 Hospitalization History UTI 2021 [email or web address] Other 04-06-2023 Evaluation note* Encounter Date Diagnosis [...] 2 diabetes mellitus 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 Recent pulmonology visit showed stability. [facility] Other 04-05-2023 History general Narrative - Reported* [...] surgery Hospitalization History SEE ABOVE Hospitalization History [facility] [place] 201 8 Hospitalization History UTI 2021 Hospitalization History [facility]/20[email or web address] Other 04-04-2023 Evaluation note* Encounter Date Diagnosis Assessment Notes Treatment Notes Treatment Clinical Notes Dec, Cough (ICD-10 - R05.9) Dec, Interstitial lung disease (ICD-10 - J84.9) Call office if increased cough occurs or shortness of breath. Dec, Pneumonitis (ICD-10 - J18.9) Dec, Bronchiectasis 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 (ICD-10 - J47.9) Dec, Other Notifiy family doctor about increased LE edema, unable to wear shoes. [facility] Other 03-31-2023 History general Narrative - Reported* [...] surgery Hospitalization History SEE ABOVE Hospitalization History [facility] [place] 201 8 Hospitalization History UTI 2021 Hospitalization History [facility] 02/[facility] 09[facility]20[email or web address] Other 03-24-2023 History general Narrative - Reported* [...] surgery Hospitalization History SEE ABOVE Hospitalization History [facility] [place] 201 8 Hospitalization History UTI 2021 Hospitalization History [facility] 02/20[facility] Hospital[email or web address] Other 03-23-2023 Evaluation note* Encounter Date Diagnosis [...] 2 diabetes mellitus 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, unspecified whether fpc insulin use (ICD-10 - E11.9) Type 2 [...] Nov, Nausea (ICD-10 - R11.0) Rx refilled [facility] Other 03-20-2023 History general Narrative - Reported* Type Description Date Medical History Esophageal reflux Medical History sleep apnea with cpap Medical History LBP Medical History allergic rhinitis Medical History hypoglycemia in the morning Medical History Hypoglycaemia NOS Medical History LUMBAR SPONDYLOSIS/RADICULOPATHY Medical History HTN Medical History ARTHRITIS Medical History HLD Medical History lactose intolerance Medical History Covid 03/2022 while in the [place] [facility] Surgical History bladder surgery Surgical History [...] History UTI 2021 Hospitalization History [facility] 02/20[email or web address] Other 03-06-2023 History general Narrative - Reported* [...] surgery Hospitalization History SEE ABOVE Hospitalization History [facility] [place] 201 8 Hospitalization History UTI 2021 Hospitalization History [facility] 02/20[email or web address] Other 01-16-2023 Evaluation note* Encounter Date Diagnosis [...] will continue to monitor. Continue above medications. [facility] Other 12-22-2022 Evaluation note* Encounter Date Diagnosis [...] 2 diabetes mellitus 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, unspecified whether fpc insulin use (ICD-10 - E11.9) Stable. Last [...] They are following this with appropriate scans. [facility] Other 12-15-2022 Evaluation note* Encounter Date Diagnosis Assessment Notes Treatment Notes Treatment Clinical Notes Aug, Cough (ICD-10 - R05.9) Aug, Interstitial lung disease (ICD-10 - J84.9) Aug, Pneumonitis (ICD-10 - J18.9) Aug, Bronchiectasis 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 (ICD-10 - J47.9) [facility] Other 11-15-2022 Evaluation note* Encounter Date Diagnosis Assessment Notes Treatment Notes Treatment Clinical Notes Jul, GERD (gastroesophageal reflux disease) (ICD-10 - K21.9) Jul, RLS (restless legs syndrome) (ICD-10 - G25.81) [facility] Other 11-13-2022 History general Narrative - Reported* [...] surgery Hospitalization History SEE ABOVE Hospitalization History [facility] [place] 201 8 Hospitalization History UTI 2021 Hospitalization History [facility] 02/20[email or web address] Other 11-04-2022 History general Narrative - Reported* Type Description Date Medical History Esophageal reflux Medical History sleep apnea with cpap Medical History LBP Medical History allergic rhinitis Medical History hypoglycemia in the morning Medical History Hypoglycaemia NOS Medical History LUMBAR SPONDYLOSIS/RADICULOPATHY Medical History HTN Medical History ARTHRITIS Medical History HLD Medical History lactose intolerance Medical History Covid 03/2022 while in the [place] [facility] Surgical History bladder surgery Surgical History [...] surgery Hospitalization History SEE ABOVE Hospitalization History [facility] [place] 201 8 Hospitalization History UTI 2021 Hospitalization History [facility] 02[facility]20[email or web address] Other 11-03-2022 Evaluation note* Encounter Date Diagnosis [...] disease (ICD-10 - J84.9) She is attending [employer] [facility] and has f/u in August. Jul, Anxiety (ICD-10 - F41.9) She is advised that she is going through alot right now, and its understable why she is shaky. 03 Nov, 2022 Need for influenza vaccination (ICD-10 - Z23) [email or web address] Other 11-02-2022 Evaluation note* Encounter Date Diagnosis Assessment Notes Treatment Notes Treatment Clinical Notes Jul, Cough (ICD-10 - R05.9) Jul, Interstitial lung disease (ICD-10 - J84.9) [facility] Other 11-02-2022 History general Narrative - Reported* Type Description Date Medical History Esophageal reflux Medical History sleep apnea with cpap Medical History LBP Medical History allergic rhinitis Medical History hypoglycemia in the morning Medical History Hypoglycaemia NOS Medical History LUMBAR SPONDYLOSIS/RADICULOPATHY Medical History HTN Medical History ARTHRITIS Medical History HLD Medical History lactose intolerance Medical History Covid 03/2022 while in the [place] Surgical History bladder surgery Surgical History [...] surgery Hospitalization History SEE ABOVE Hospital[place] [facility] [facility] 8 Hospitalization History UTI 2021 Hospitalization History [facility] 02/2022 [email or web address] Other 10-13-2022 Evaluation note* Encounter Date Diagnosis Assessment Notes Treatment Notes Treatment Clinical Notes Jun, Cough (ICD-10 - R05.9) [facility] Other 10-05-2022 History general Narrative - Reported* [...] surgery Hospitalization History SEE ABOVE Hospitalization [place] [facility] [place] 201 8 Hospitalization History UTI 2021 [email or web address] Other 09-26-2022 Evaluation note* Encounter Date Diagnosis Assessment Notes Treatment Notes Treatment Clinical Notes May, Enlarged thyroid (ICD-10 - E04.9) [facility] Other 09-22-2022 Evaluation note* Encounter Date Diagnosis [...] 2 diabetes mellitus 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, unspecified whether fpc insulin use (ICD-10 - E11.9) Type 2 [...] May, Interstitial lung disease (ICD-10 - J84.9) [facility] Other 09-15-2022 Evaluation note* Encounter Date Diagnosis Assessment Notes Treatment Notes Treatment Clinical Notes May, Cough (ICD-10 - R05.9) [facility] Other 09-08-2022 Evaluation note* Encounter Date Diagnosis Assessment Notes Treatment Notes Treatment Clinical Notes May, SOB (shortness of breath) (ICD-10 - R06.02) [facility] Other 08-22-2022 Evaluation note* Encounter Date Diagnosis Assessment Notes Treatment Notes Treatment Clinical Notes Apr, Essential hypertension (ICD-10 - I10) [facility] Other 04-25-2022 Evaluation note* Encounter Date Diagnosis Assessment Notes Treatment Notes Treatment Clinical Notes Dec, HTN (hypertension) (ICD-10 - I10) Patients blood pressure is well controlled at this time. Denies cardiac symptoms at todays visit. We will continue to monitor. Continue above medications. Dec, Hospital discharge follow-up (ICD-10 - Z09) All data from her brief hospitalization in [place] were reviewed.Final diagnosis was dehydration with syncope. [...] prescribed have SE's. No signs of Parkinsons. [facility] Other 04-04-2022 Evaluation note* Encounter Date Diagnosis Assessment Notes Treatment Notes Treatment Clinical Notes Dec, GERD (gastroesophageal reflux disease) (ICD-10 - K21.9) [facility] Other 2022 Evaluation note* Encounter Date Diagnosis [...] to eat earlier before going to bed. 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 [facility] Other 11-18-2021 Evaluation note* Encounter Date Diagnosis [...] verbalized understanding and agreement with treatment plan. [facility] Other 10-22-2021 Evaluation note* Encounter Date Diagnosis [...] Patient care instructions given in writting by [facility] document. 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) Type 2 [...] May, Suspected UTI (ICD-1 0 - R39.89) [facility] [employer] Other Evaluation [facility]No [facility] [employer] Other Evaluation noteNort [employer] Other Evaluation noteNo assessment information available [facility] Work Phone: evaluation note* Diagnosis Onset Date Resolution Status Balance disorder acute Diabetes mellitus with hyper glycemia, without long-term current use of insulin acute Nausea acute RLS (restless legs syndrome) acute Systolic ejection murmur acu te Lumbar degenerative disc disease acute [facility] Work Phone: Evaluation note* Diagnosis Onset Date Resolution Status Lumbar degenerative disc disease acute Bronchiectasis acute Chronic cough acute Interstitial lung disease ac [employer] Pneumonitis acute Upper airway cough syndrome acute Diabetes mellitus with hyper glycemia, without long-term current use of insulin acute RLS (restless legs syndrome) acute [facility] Work Phone: evaluation note* Diagnosis Onychomycosis- Primary Dermatophytosis of nail Pain in both feet 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, without long-term current use of insulin ([facility]) Lymphedema Other noninfectious lymphedema Venous insufficiency Unspecified venous (peripheral) insufficiency documented in this encounter [facility] HealthcareEvaluation note* Diagnosis Onychomycosis- Primary Dermatophytosis of nail Pain in both feet 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, without long-term current use of insulin ([facility]) Lymphedema Other noninfectious lymphedema documented in this encounter [facility] HealthcareEvaluation note* Diagnosis Onset Date Resolution Status Admit Date Bronchiectasis acute November 1:03pm CHF (congestive heart failure) acute December 07, 2024 1:03pm HTN (hypertension) acute December 07, 2024 1:03pm Interstitial lung disease acute December 07, 2024 1:03pm Medicare annual wellness vis it, subsequent acute December 07, 2024 1:03pm Morbid obesity acute November 1:03pm [facility] Work Phone: Evaluation note* Diagnosis Onychomycosis- Primary Dermatophytosis of nail Pain in both feet 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, without long-term current use of insulin Lymphedema Other noninfectious lymphedema documented in this encounter [facility] Healthcare[facility] note* Diagnosis Seborrheic keratosis- Primary Neoplasm of unspecified behavior of bone, soft tissue, and skin Seborrheic keratosis, inflamed documented in this encounter [facility] HealthcareEvaluation note* Diagnosis Onychomycosis- Primary Dermatophytosis of nail Pain in both feet 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, without long-term current use of insulin (HCC) Lymphedema Other noninfectious lymphedema Hammer toes of both feet documented in this encounter [facility] HealthcareHistory general Narrative - Reported* Type Description Date [...] surgery Hospitalization History SEE ABOVE Hospitalization [place] [facility] [place] 201 8 [facility] Other History general Narrative - ReportedNort [employer] Other History general Narrative - Reported* Type [...] surgery Hospitalization History SEE ABOVE Hospitalization History [facility] [place] 201 8 Hospitalization History UTI 2021 [facility] Other history general Narrative - Reported* Type Description Date [...] surgery Hospitalization History SEE ABOVE Hospitalization History [facility] [place] 201 8 Hospitalization History UTI 2021 Hospitalization History [facility]2022 [facility] Other history general Narrative - Reported* Type Description Date Medical History Esophageal reflux Medical History sleep apnea with cpap Medical History LBP Medical History allergic rhinitis Medical History hypoglycemia in the morning Medical History Hypoglycaemia NOS Medical History LUMBAR SPONDYLOSIS/RADICULOPATHY Medical History HTN Medical History ARTHRITIS Medical History HLD Medical History lactose intolerance Medical History Covid 03/2022 while in the [place] Surgical History bladder surgery Surgical History [...] surgery Hospitalization History SEE ABOVE Hospitalization History [facility] [place] 201 8 Hospitalization History UTI 2021 [facility]ization History [facility]ization History [facility] 09/2021 [facility] Other History general [facility]ative - [facility] [employer] Other History general Narrative - ReportedNoIgY [employer] Other Hislhxm general Narrative - Reported* Type Description Date Medical History Esophageal reflux Medical History sleep apnea with cpap Medical History LBP Medical History allergic rhinitis Medical History hypoglycemia in the morning Medical History Hypoglycaemia NOS Medical History LUMBAR SPONDYLOSIS/RADICULOPATHY Medical History HTN Medical History ARTHRITIS Medical History HLD Medical History lactose intolerance Medical History Covid 03/2022 while in the [place] Medical History interstitial lung disease Medical [...] surgery Hospitalization History SEE ABOVE Hospitalization History [facility] [place] 201 8 Hospitalization History UTI 2021 Hospitalization History [facility] 02/[facility] Hospitalization History [facility] 09/2021 [email or web address] Other Hospital Discharge instructionsAmbulatory Orders* Referral to Pain Management Time Frame: 01/01/24, Location: [facility] Work Phone: Reason for visit NarrativeClinical referral/lock note [facility] Other Chief Complaint and Reason for Visit Chief Complaint I10 E11.9 R05.9 R60. 0 Chief Complaint I10 E11.9 R05.9 R60. 0 r06.02 Chief Complaint I10 E11.9 R05.9 R60. 0 r06.02 R05.9 R60.0 I51.7 Chief Complaint J84.9 Chief Complaint R39.89 j84.9 Chief Complaint Amb Documentation 4 Month Check Up Chief Complaint Amb Documentation 4 Month Check Up [facility], difficulty walking Reason for Visit Balance disorder Diabetes mellitus with hyperglycemia, without long-term current use of insulin Nausea RLS (restless legs syndrome) Systolic ejection murmur Lumbar degenerative disc disease Chief Complaint [facility], difficulty walk ing H mo f/u ILD, Pneumonitis, Bronchiectasis 3 Month Check Up Reason for Visit Lumbar degenerative disc disease Bronchiectasis Chronic cough Interstitial lung disease Pneumonitis Upper airway cough syndrome Diabetes mellitus with hyperglycemia, without long-term current use of insulin RLS (restless legs syndrome) Chief Complaint 3 month f/u Chief Complaint Admit Date Wellness December 07, 2024 1:0 3pm Reason for Visit Admit Date Bronchiectasis December 07, 2024 1:0 3pm CHF (congestive heart failure) November 1:03pm HTN (hypertension) December 07, 2024 1:0 3pm Interstitial lung disease December 07 1:03pm Medicare annual wellness visit, subseque nt December 07, 2024 1:03pm Morbid obesity December 07, 2024 1:0 3pm Advance Directives No Advanced Directives Records Found Advance Directive Response Recorded Date/ Time Advance Directives Yes March 06 11:08am Reason for Referral Reason * F/U 06/18 1st gino ilable physician consult treat cough Diagnosis 1 Cough (R05.9) Referral Organization [facility] Referring Provider First Name Brendon Referring Provider Last Name Annelise Referring Provider Specialty Internal Me dicine Referred Organization [facility] Referred Address [address] [place] [address],[address],[id number] Referred Provider Specialty Pulmonary Di seases Referral Priority Urgent General Notes Jocelin Peck 05/18 01:33:21 PM >Referral sent P2P Jocelin Peck 06/20/2022 03:17:10 PM > please have Dr. Castelan lock note from 06/07 Summary Purpose Family History No Family History Records Found Relationship Condition Age at Onset Recorded Date/T chata brother Epilepsy Unknown father Malignant neoplasm Unknown Unknown Malignant neoplasm of stomach Unknown Not Specified Family history of emphysema Unknown Relationship Condition Age at Onset Recorded Date/T chata brother Epilepsy Unknown father Malignant neoplasm Unknown Unknown Malignant neoplasm of stomach Unknown mother Family history of emphysema Unknown Additional Source Comments REASON FOR VISIT (unrecogniz ed section and content) Reason Comments Suspicious Skin Lesion Care Teams (unrecognized sec tion and content) Team Status: Active Member Role Status Dates Fatoumata Chase MD Primary Care Provider Active Team Status: Inactive Member Role Status Dates Fatoumata Chase MD Primary Care Provide r, Attending Provider Active Start: June 08, 2024 End: June 08, 2024 Team Status: Active Member Role Status Dates Brendon Castelan MD Primary Care Provider Active Team Status: Active Member Role Status Dates Brendon Castelan MD Primary Care Provider Active Start: November 07, 2023 LORENZA Campos Attending Provider Active Start : November 07, 2023 Team Status: Inactive Member Role Status Dates Brendon Castelan MD Primary Care Provider Active Start: December 02, 2023 End: December 02, 2023 Fatoumata Chase MD Attending Provider Active St art: December 02, 2023 End: December 02, 2023 Team Status: Inactive Member Role Status Dates Brendon Castelan MD Primary Care Provider, Attendin g Provider Active Team Status: Inactive Member Role Status Dates Brendon Castelan MD Primary Care Provider Active Staci Asencio APRN ACNP-BC Attending Provider Active Team Status: Active Member Role Status Dates Brendon Castelan MD Primary Care Provider Active Start: December 25, 2023 Fatoumata Chase MD Attending Provider Active St art: December 25, 2023 Team Status: Inactive Member Role Status Dates Fatoumata Chase MD Primary Care Provide r, Attending Provider Active Start: January 01, 2024 End: January 01, 2024 Team Status: Inactive Member Role Status Dates Staci Asencio APRN ACNP-BC Attending Provider Active Start: January 28, 2024 End: January 28, 2024 Fatoumata Chase MD Primary Care Provider Active Start: January 28, 2024 End: January 28, 2024 DME Active Start: January End: January 28, 2024 Team Status: Inactive Member Role Status Dates Fatoumata Chase MD Primary Care Provide r, Attending Provider Active Start: March 05, 2024 End: March 05, 2024 Mine Geologist Relationship Specialty Start Date End Date Fatoumata Chase MD [address] [place] [address] PCP - General Family Medicine 06/19/23 Mine Geologist Relationship Specialty Start Date End Date Fatoumata Chase MD [address] [place] [id number] PCP - General Family Medicine 06/19/23 Mine Geologist Relationship Specialty Start Date End Date Fatoumata Chase MD [address] [place] [phone] PCP - General Family Medicine 06/19/23 Team Status: Inactive Member Role Status Dates Fatoumata Chase MD Primary Care Provide r, Attending Provider Active Start: December 07, 2024 End: December 07, 2024 Mine Geologist Relationship Specialty Start Date End Date Fatoumata Chase MD PCP - General Family Medicine 06/19/23 Mine Geologist Relationship Specialty Start Date End Date Fatoumata Chase MD PCP - General Family Medicine 06/19/23 Mine Geologist Relationship Specialty Start Date End Date Fatoumata Chase MD [address] [place] [address] PCP - General Family Medicine 01/18/25 Mine Geologist Relationship Specialty Start Date End Date Fatoumata Chase MD [address] [place] [address] PCP - General Family Medicine 01/18/25 Mine Geologist Relationship Specialty Start Date End Date Fatoumata Chase MD [address] [place] [address] PCP - General Family Medicine 01/18/25 Goals (unrecognized section and content) Goals may be documented in a n alternate section INFORMATION SOURCE (unrecogn ized section and content) DATE CREATED AUTHOR 07/24/2022 [facility] DATE CREATED AUTHOR AUTHOR'S ORGANIZ ATION 01/30/2023 [facility] DATE CREATED AUTHOR AUTHOR'S ORGANIZ ATION 06/01/2023 [facility] DATE CREATED AUTHOR AUTHOR'S RONAN GARCIA 05/06/2025 [facility] Special[facility] EPIC FOR RECORDS PERTAINING TO PATIENTS WHO ARE [...] BE BASED ON THE PRIMARY CLINICAL RECORDS. [facility] [place] [facility]. provides no warranty or guarantee of the accuracy or completeness of information in this document.
== END 2025-06-09 07:56 | disposition home or self-care (01) ==
LOC: CARD 07:55
PROVIDERS: PCP Family Medicine; Visit Provider Family Medicine
DX: I10 Essential (primary) hypertension (principal)
CPT/HCPCS: 93005

== ENCOUNTER 2025-07-25 04:04 | Emergency (ER) | payer MEDICARE, SELFPAY ==
--- OUTSIDE RECORDS SUMMARY | 2025-07-19 14:00 | XMS_ITS | Encounter Summary ---
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 Name Role Phone Fatoumata Chase MD Primary Care Provider Reason for Visit * ReasonCommentsDiabetic Shoes Encounter Details DateTypeDepartmentCare Team (Latest Contact Info)Gzkvxmwriym11/03/2025 2:00 PM ESTOffice Visit [facility] [address] [place] [phone] Stephon Kincaid DPAnnette [address] [place], [place] [id number] Hammer toes of both feet (Primary Dx); Equinus contracture of left ankle; Equinus contracture of right ankle; Lymphedema; Diabetic polyneuropathy associated with type 2 diabetes mellitus (HCC) Social History Tobacco UseTypesPacks/DayYears UsedDateSmoking Tobacco: NeverSmokeless Tobacco: Never Tobacco Cessation:Counseling Given: Not Answered Alcohol UseStandard Drinks/WeekCommentsDefer0 (1 standard drink = 0.6 oz pure alcohol)CommentsUnknownSex and Gender InformationValueDate RecordedSex Assigned at BirthNot on fileLegal QkiJeebrs08/15/2023 6:47 PM EDTGender Identity Not on fileSexual OrientationNot on filedocumented as of this encounter Last Filed Vital Signs Vital SignReadingTime TakenCommentsBlood Pressure--Pulse--Temperature-- Respiratory Rate--Oxygen Saturation--Inhaled Oxygen Concentration--Vvgrtx02.2 kg (179 lb)07/19/2025 2:24 PM YXAPtefvw305.4 cm (5')07/19/2025 2:24 PM ESTBody Mass Index34.9611 2:24 PM ESTdocumented in this encounter Progress Notes * Stephon Kincaid, HEDYM - 07/19/2025 2:00 PM EST Images from the original note were not included. Subjective Patient ID: Dottie Bates is a 89 y.o. female who presents for Diabetic Shoes. HPI This is an established patient who presents to clinic for diabetic shoe pickup. Review of Systems Constitutional: Negative for activity change and fatigue. Respiratory: Negative for chest tightness and shortness of breath. Cardiovascular: Positive for leg swelling. Negative for chest pain. Musculoskeletal: Positive for arthralgias and gait problem. Negative for joint swelling. Skin: Negative for color change and wound. Neurological: Negative for weakness and numbness. Psychiatric/Behavioral: Negative for agitation and behavioral problems. Hematological: Does not bruise/bleed easily. Allergic/Immunologic: Negative for immunocompromised state. Past medical History Past Medical History: Diagnosis Date Acute bilateral low back pain Allergic rhinitis Arthritis Back problem Cataract COVID-19 vaccine administered Diabetes (HCC) Esophageal reflux Family history of cancer History of pneumonia Hypertension Hypoglycemia Sleep apnea Sleep disorder Medications Current Outpatient Medications: furosemide (Lasix) 40 MG tablet, , Disp: , Rfl: metOLazone (Zaroxolyn) 2.5 MG tablet, , Disp: , Rfl: ondansetron (Zofran) 4 MG tablet, Take 4 mg by mouth 2 (two) times a day as needed, Disp: , Rfl: potassium chloride CR (K-Tab) 20 MEQ ER tablet, Take 20 mEq by mouth Daily Take with food., Disp: ,Rfl: rOPINIRole (Requip) 0.5 MG tablet, , Disp: , Rfl: Allergies Clarithromycin and Naproxen Past Surgical History Past Surgical History: Procedure Laterality Date ABLATION A-FIB BACK SURGERY 2013 BACK SURGERY 2015 BLADDER SURGERY CATARACT EXTRACTION CAUDAL INJECTION DEXA KNEE SURGERY PARTIAL HYSTERECTOMY NM LAP,CHOLECYSTECTOMY 2018 NM LASER SURGERY OF EYE 2014 Family History Family History Problem Relation Name Age of Onset Stomach cancer Mother Cancer Father Cancer Maternal Grandmother Objective Physical Exam Constitutional: General: She is not in acute distress. Appearance: She is obese. Comments: Presents to clinic ambulating with wheeled walker assistance. Unaccompanied. Cardiovascular: Comments: DP pulse: 1/4 PT pulse: 1/4 Skin temperature is warm to cool Edema: Significant lymphedema bilaterally, worse on the left lower extremity Pulmonary: Effort: Pulmonary effort is normal. No respiratory distress. Musculoskeletal: Cervical back: Neck supple. No rigidity. Comments: Pedal deformities: Multiple hammertoe contractures bilaterally. Ankle dorsiflexion 0 degrees with the knee extended, flexed bilaterally. Skin: Capillary Refill: Capillary refill takes less than 2 seconds. Comments: 6 toenails exhibit clinical mycosis with yellow/brown discoloration, crumbly texture and subungual debris. Currently manicured for length, thickness. Hyperkeratotic tissue: Left foot: None Right foot: None Skin is diffusely thin Hair growth: Absent Neurological: Mental Status: She is alert. Comments: Protective sensation intact at 9/10 pedal sites Vibratory sensation diminished at the 1st MTP bilaterally. Psychiatric: Mood and Affect: Mood normal. Behavior: Behavior normal. Assessment/Plan ICD-10-CM 1. Hammer toes of both feet M20.41 M20.42 2. Equinus contracture of left ankle M24.572 3. Equinus contracture of right ankle M24.571 4. Lymphedema I89.0 5. Diabetic polyneuropathy associated with type 2 diabetes mellitus (HCC) E11.42 Patient presents for the dispensing of 1 pair of extra depth diabetic shoes and 3 pairs of heat molded orthotics. The shoes were applied and fit well. Each pair of inserts were heated to 270 degrees and molded to the patient's feet. Patient was able to stand and weight bear for the molding. The inserts achieve total contact with the plantar surface of the patient's feet. The insoles are comfortable and appropriate for her foot type. Instructions were given in the rotation and changing of the insoles. Heat molded inserts are required to achieve and maintain total contact with the plantar aspect of the patient's foot for the life of the device and to prevent tissue damage. Three pairs of inserts are utilized for her due to bottoming out and loss of protection after 4 months of wear. They were dated to assist her in this process. Patient is able to apply the shoes independently. Walking inthe shoes is comfortable and nonirritating. Patient was instructed in the break in period and return policy for the shoes and insoles. The PCS is on file and instructions given to call the office if q uestions or problems arise. The supplier standards regarding the DME given to patient. At the time of dispensing the shoes and insoles are suitable and not substandard. RTO 3 weeks to check shoes. A copy of patient records were reviewed and initialed by the PCP prior to the signing of the certifying statement. She was advised to wear the shoes at home for only one hour on the first day and to check her feet for any sores or irritations. This note was created with the assistance of a speech recognition program. While intending to generate a timely document that accurately reflects the content of the visit, no guarantee can be provided that every grammatical or spelling mistake has been or will be identified or corrected. Thank you for your understanding. Stephon Kincaid DPM documented in this encounter Plan of Treatment DateTypeDepartmentCare Team (Latest Contact Info)Dfmsslvrfun56/18/2025 10:00 AM ESTProcedure Visit [facility] [address] [place] [phone] Argenis Miranda DPM [address] [place] [address] 08/09/2025 10:00 AM ESTOffice Visit [facility] [address] [place] [address] Stephon Kincaid DPM [address] [facility] [place], [place] [phone] documented as of this encounter Visit Diagnoses Diagnosis Hammer toes of both feet- Primary Equinus contracture of left ankle Equinus contracture of right ankle Lymphedema Other noninfectious lymphedema Diabetic polyneuropathy associated with type 2 diabetes mellitus (HCC) documented in this encounter Care Teams Team MemberRelationshipSpecialtyStart DateEnd Date Fatoumata Chase MD [address] [place] [phone] PCP - GeneralFamily Medicine01/18/25documented as of this encounter
[2025-07-25 04:08] VITALS: BP 162/60; PULSE 76; TEMP 36.6; O2SAT 96; BMI 35.3
--- NOTE | 2025-07-25 04:21 | XR_ITS ---
The [address] [address] Patient Name: SALMA QUAN MRN: [id number] date: 1935 Sex: F Assigned Patient Location: ER Current Patient Location: Accession/Order Number: [id number] Exam Date: 07/25/2025 04:24 Report Date: 07/25/2025 08:37 At the request of: SALENA BANERJEE MD Procedure: XR shoulder RT min 2V XR shoulder RT min 2V 07/25/2025 4:31 AM SIGNS AND SYMPTOMS: Right shoulder pain PROTOCOL: 2 views of the right shoulder COMPARISON: 03/01/2022 FINDINGS: Mild degenerative changes are noted in the acromioclavicular joint. Mild degenerative changes are noted in the acromioclavicular joint. There is no fracture or dislocation. The visualized right hemithorax is grossly intact. Degenerative changes are noted in the cervical spine. Degenerative changes are noted in the thoracic spine. Subcortical sclerosis is noted along the greater tuberosity of the humeral head suspicious for underlying rotator cuff pathology. Atherosclerotic changes are noted in the right carotid bifurcation. XR/XR shoulder RT min 2V IMPRESSION: No fracture or dislocation. Degenerative changes are noted in the right shoulder with findings suggesting underlying rotator cuff pathology. Impression dictated by: Gaudencio Sanchez M.D. 07/25/2025 8:37 AM Dictation Location: [place] [address] Electronically authenticated by: [id number] Y Date: 07/25/2025 08:37
[2025-07-25 04:29] LABS: Hematocrit 46.2 % (36.0-48.0); Hemoglobin 15.8 g/dL (12.0-16.0); Immature Granulocytes Abs Auto 0.04 10^3/uL (0.00-0.03); Immature Granulocytes Pct Auto 0.5 % (0.0-0.5); Lymphocytes Absolute Auto 2.7 10^3/uL (1.2-3.8); Mean Corpuscular HGB Conc 34.2 g/dL (29.9-35.2); Mean Corpuscular Hemoglobin 32.4 pg (26.7-34.0); Mean Corpuscular Volume 94.9 fL (81.0-99.0); Platelet Count 280 10^3/uL (150-450); Red Blood Count 4.87 10^6/uL (4.20-5.40); White Blood Count 8.3 10^3/uL (4.0-11.0)
--- NOTE | 2025-07-25 04:37 | ED_ITS ---
HPI HPI - General Adult General Chief complaint: Weakness Stated complaint: weakness Time Seen by Provider: 07/25/25 04:15 Source: patient Mode of arrival: ambulance History of Present Illness HPI narrative: patient complains of right shoulder pain for 2 weeks. Tonight she was walking to the bathroom and felt dizzy. Worried she might have a UTI and called 911. No fever, dysuria or nausea. States in the past when she had a UTI she had no urinary symptoms Related Data Home Medications ?Medication ?Instructions ?Recorded ?Confirmed estradiol 0.01% (0.1 mg/gram) 1 g vaginal .Twice a wee k 04/20/23 04/20/23 vaginal cream furosemide 40 mg tablet 60 mg PO DAILY 04/20/2312/15 oxybutynin chloride 5 mg tablet 5 mg PO DAILY 04/20/23 12/25/23 ropinirole 0.5 mg tablet 0.5 mg PO .hs 04/20/2312/24 nitrofurantoin 100 mg PO DAILY 12/25/2307/09 monohydrate/macrocrystals 100 mg capsule ondansetron HCl 4 mg tablet 4 mg PO Q12H PRN nausea an d 12/25/23 12/25/23 vomiting potassium chloride 20 mEq 20 meq PO DAILY 12/25/2307/09 tablet,extended release(part/cryst) Previous Rx's ?Medication ?Instructions ?Recorded methocarbamol 500 mg tablet 500 mg PO Q8H PRN muscle p ain #10 12/25/23 tabs methylprednisolone 4 mg tablets in 4 mg PO DAILY 6 day s #21 ea 12/25/23 a dose pack (Medrol (Jim)) tramadol 50 mg tablet 50 mg PO Q8H PRN pain #14 ta bs 12/25/23 Allergies Allergy/AdvReac Type Severity Reaction Status Date / Time naproxen AdvReac Mild Unknown Verified 07/25/25 04:08 Opioid HPI Opioid Management Most Recent Opioid Data: Last Pain Scale 8 12/25/23, 15:23 Review of Systems ROS Status of ROS 10 or more systems reviewed and unremark able except as noted in history and below [facility] Medical History (Updated 07/25/25 @ 05:26 by Hernan Carranza MD) Benign essential hypertension ?I10 - Essential (primary) hypertension (ICD-10) Type 2 diabetes mellitus with hyperglycemia ?E11.65 - Type 2 diabetes mellitus with hyperglycemia (ICD-10) Recurrent UTI ?N39.0 - Urinary tract infection, site not specified (ICD-10) Edema ?R60.9 - Edema, unspecified (ICD-10) Restless legs ?G25.81 - Restless legs syndrome (ICD-10) Surgical History (Updated 01/16/24 @ 15:35 by Saira Aj RN) History of bladder surgery ?Z98.890 - Other specified postprocedural states (ICD-10) Hx of cholecystectomy ?Z90.49 - Acquired absence of other specified parts of digestive tract (ICD- 10) Social History Within the past year, how often did you have a drink containing alcohol: never Score interpretation: A score less than 3 is consistent with normal alcohol consumption. Smoking status: Never smoker Non-prescribed substance use: denies use Previous occupational history: retired Highest level of school completed/degree received: high school graduate Are you now , , , , never or living with a partner: In a typical week, how many times do you talk on the telephone with family, friends, or neighbors: 3 or more times per week How often do you get together with friends or relatives: 3 or more times per week How often do you attend gnosticist or mosque services: 1-3 times per year Little interest or pleasure in doing things: not at all Feeling down, depressed, or hopeless: not at all Feel stressed/tense/nervous/anxious/difficulty sleeping: not at all Do you think of yourself as: straight/heterosexual Gender Identity: female Exam Constitutional Vital Signs, click to edit/add: Last Vital Signs Temp 97.8 F 07/25/25 04:08 Pulse 76 07/25/25 04:08 Resp 20 07/25/25 04:08 BP 162/60 H 07/25/25 04:08 Pulse Ox 96 07/25/25 04:08 O2 Del Method Room Air 07/25/25 04:08 Common normals: no apparent distress, average body habitus, oriented x3, no limitations, healthy appearing, alert and well nourished [facility] Common normals: normocephalic and head/scalp atraumatic Eye Common normals: EOMs intact bilaterally and conjunctivae normal Respiratory Common normals: normal respiratory effort, no retractions, no use of accessory muscles and clear to auscultation bilaterally Cardio Common normals: regular rate, regular rhythm, S1 normal heart sound and S2 normal heart sound GI Common normals: Normal to inspection, nondistended, normoactive bowel sounds p resent, soft to palpation and non-tender Extremity Other: pain with ROM right shoulder Neuro Common normals: oriented x3, CN's II-XII intact bilaterally, moves all extremities and no focal motor deficits Psych Appearance: grossly normal Course Vital Signs Vital signs: Vital Signs Temperature 97.8 F 07/25/25 04:08 Pulse Rate 76 07/25/25 04:08 Respiratory Rate 20 07/25/25 04:08 Blood Pressure 162/60 H 07/25/25 04:08 Pulse Oximetry 96 07/25/25 04:08 Oxygen Delivery Method Room Air 07/25/25 04:08 Temperature 97.8 F 07/25/25 04:08 Pulse Rate 76 07/25/25 04:08 Respiratory Rate 20 07/25/25 04:08 Blood Pressure 162/60 H 07/25/25 04:08 Pulse Oximetry 96 07/25/25 04:08 Oxygen Delivery Method Room Air 07/25/25 04:08 Medical Decision Making MDM Narrative Medical decision making narrative: states she felt dizzy at home and was concerned she had a UTI. also right shoulder pain for 2 weeks. Exam with no deformity of the right shoulder but does have ROM right shoulder. labs unremarkable including UA. Patient hydrated with NS. informed of her results. Advised to use tylenol for her shoulder pain and is to follow up with her doctor for recheck Lab Data Labs: Lab Results 07/25/25 07/25/25 Range/Units 04:15 04:35 WBC 8.3 (4.0-11.0) 10^3/uL RBC 4.87 (4.20-5.40) 10^6/uL Hgb 15.8 (12.0-16.0) g/dL Hct 46.2 (36.0-48.0) % MCV 94.9 (81.0-99.0) fL MCH 32.4 (26.7-34.0) pg MCHC 34.2 (29.9-35.2) g/dL RDW 13.4 (11.0-15.0) % Plt Count 280 (150-450) 10^3/uL MPV 9.3 L (9.5-13.5) fL Neut % (Auto) 49.0 (43.0-75.0) % Lymph % (Auto) 32.2 (20.5-60.0) % [place] % (Auto) 12.5 H (1.7-12.0) % Eos % (Auto) 4.5 (0.9-7.0) % Baso % (Auto) 1.3 (0.2-2.0) % Neut # (Auto) 4.0 (1.4-6.5) 10^3/uL Lymph # (Auto) 2.7 (1.2-3.8) 10^3/uL [place] # (Auto) 1.0 H (0.3-0.8) 10^3/uL Eos # (Auto) 0.4 (0.0-0.7) 10^3/uL Baso # (Auto) 0.1 (0.0-0.1) 10^3/uL Abs Immat Gran (auto) 0.04 H (0.00-0.03) 10^3/uL Imm/Tot Granulo (auto) 0.5 (0.0-0.5) % Sodium 139 (136-145) mmol/L Potassium 4.1 (3.5-5.1) mmol/L Chloride 103 (98-107) mmol/L Carbon Dioxide 28.0 (21.0-32.0) mmol/L Anion Gap 12.1 BUN 22.0 H (7.0-18.0) mg/dL Creatinine 1.04 H (0.55-1.02) mg/dL Est GFR ( Amer) >60 (>=60 mL/min/1.73m^2) Est GFR (Non-Af Amer) 50 L (>=60 mL/min/1.73m^2) BUN/Creatinine Ratio 21.2 Glucose 101 (74-106) mg/dL Lactate 1.5 (0.4-2.0) mmol/L Calcium 9.3 (8.5-10.1) mg/dL Troponin I High Sens 8.7 (4.0-51.3) pg/mL Urine Color Lt. yellow (YELLOW) Urine Clarity Clear (CLEAR) Urine pH 7.0 (5.0-9.0) Ur Specific [place] 1.010 (1.005-1.025) Urine Protein Negative (NEG/TRACE) mg/dL Urine Glucose (UA) Negative (NEGATIVE) mg/dL Urine Ketones Negative (NEGATIVE) mg/dL Urine Occult Blood Negative (NEGATIVE) Urine Nitrite Negative (NEGATIVE) Urine Bilirubin Negative (NEGATIVE) Urine Urobilinogen 1.0 (0.2-1.0) EU/dL Ur Leukocyte Esterase Negative (NEGATIVE) Discharge Plan Discharge Chief Complaint: Weakness Clinical Impression: Arthralgia of right shoulder region Patient Disposition: Home, Self-Care Prescriptions / Home Meds: No Action estradiol 0.01 % (0.1 mg/gram) cream 1 g VAGINAL .Twice a week furosemide 40 mg tablet 60 mg PO DAILY oxybutynin chloride 5 mg tablet 5 mg PO DAILY ropinirole 0.5 mg tablet 0.5 mg PO .hs nitrofurantoin monohyd/m-cryst 100 mg capsule 100 mg PO DAILY ondansetron HCl 4 mg tablet 4 mg PO Q12H PRN (Reason: nausea and vomiting) potassium chloride 20 mEq tablet,ER particles/crystals 20 meq PO DAILY methylprednisolone [Medrol (Jim)] 4 mg tablets,dose pack 4 mg PO DAILY 6 Days Qty: 21 0RF Rx Instructions: as directed methocarbamol 500 mg tablet 500 mg PO Q8H PRN (Reason: muscle pain) Qty: 10 0RF tramadol 50 mg tablet 50 mg PO Q8H PRN (Reason: pain) Qty: 14 0RF Print Language: Bruneian Instructions: Shoulder Pain (ED) Additional Instructions: drink plenty of fluids and follow up with your family doctor in the next 2-3 days Referrals: Fatoumata Chase MD [Primary Care Provider, Family Practice] - 1 week
[2025-07-25 04:43] LABS: Anion Gap 12.1; Blood Urea Nitrogen 22.0 mg/dL (7.0-18.0); Calcium 9.3 mg/dL (8.5-10.1); Carbon Dioxide 28.0 mmol/L (21.0-32.0); Chloride 103 mmol/L (98-107); Estimated GFR (African America >60 (>=60 mL/min/1.73m^2); Estimated GFR (Non-African Ame 50 (>=60 mL/min/1.73m^2); Glucose 101 mg/dL (74-106); Lactate/Lactic Acid 1.5 mmol/L (0.4-2.0); Potassium 4.1 mmol/L (3.5-5.1); Sodium 139 mmol/L (136-145)
[2025-07-25 04:46] LABS: Glucose Urine UA NEGATIVE (NEGATIVE)
[2025-07-25] MEDS: 0.9 % SODIUM CHLORIDE 1,000 ML 999 ML IV (04:46)
--- OUTSIDE RECORDS SUMMARY | 2025-07-25 04:50 | XMS_ITS | CCD ---
Author Organization [facility] Care Team Providers Care Policy Checker Name Role Phone Brendon Castelan Unavailable [place] Unavailable Bobby Ramesh Unavailable MD Brendon Castelan Primary Care Provider MD Brendon Castelan Attending Provider [phone] Staci Asencio Unavailable MD Brendon Castelan Primary Care Provider GREG Asencio Attending Provider MD Brendon Castelan Attending Provider [phone] [address] CHON LYNCH Admitting Unavailable HERI .DR PAULINO Consulting Unavailable SYED, DR CHON Henry Attending Unavailable [facility] [place] HEALY Primary Care Unavailable MADIE, DR [...] Care Provider MD Brendon Castelan Attending Provider GREG Asencio Attending Provider [phone] Brendon Castelan Admitting Unavailable Brendon Castelan Primary Care Unavailable Brendon Castelan Attending Unavailable Brendon Castelan Admitting Unavailable Brendon Castelan Primary Care Unavailable Brendon Castelan Attending Unavailable Elif, Staci Admitting Unavailable Elif, Staci Attending Unavailable Brendon Castelan Primary Care Unavailable Brendon Castelan Admitting Unavailable Brendon Castelan Primary Care Unavailable Brendon Castelan Attending Unavailable Annelise, Brendon Primary Care Unavailable Brendon Castelan Attending Unavailable [...] Provider Fatoumata Chase MD Primary Care Provider [phone] Fatoumata Chase MD Attending Provider SHRUTHI ORTEGA Admitting Unavailable SHRUTHI ORTEGA Attending Unavailable SHRUTHI ORTEGA Attending Unavailable JIMMY MIRANDA Attending Unavailable JIMMY MIRANDA Attending Unavailable ZULEMA REID Attending Unavailable JIMMY MIRANDA Attending Unavailable STEPHON KINCAID Attending Unavailable SEN MIRANDAANDRA H Referring Unavailable STEPHON KINCAID Attending Unavailable STEPHON KINCAID Attending Unavailable Allergies Allergy ClassificationReported Allergen(s)Allergy TypeDate of OnsetReaction(s) Facility (20 sources)Acetaminophen / dichloralphenazone / isometheptene; Translations: [MIDRIN]Drug Ubgpqxu76-39-6560WabhdytIhb [facility] (20 sources)Acetaminophen / oxyCODONEDrug AllergyUnknoLake Regional Health System [employer] Other (20 sources)Clarithromycin; Translations: [CLARITHROMYCIN]Drug Dlnniix65-44-3315 Unknown, Unknown ReactionMadison Health (20 sources)Esomeprazole; Translations: [ESOMEPRAZOLE]Drug Lotlmle49-19-0634 stomach upsetMadison Health (20 sources)Naproxen; Translations: [NAPROXEN]Drug Vvicvey26-58-4987HhzdmdxAdams County Hospital (8 sources)Acetaminophen; Translations: [acetaminophen]Drug Yodlnws81-48-4862 Unknown ReactionMadison Health (14 sources)dichloralphenazone; Translations: [dichloralphenazone]Drug Allergy 02-86-3807CxybqltUniversity Hospitals Conneaut [facility] (14 sources)isometheptene; Translations: [isometheptene]Drug Vamhami93-77-3966 Unknown [facility] (14 sources)oxyCODONE; Translations: [oxycodone]Drug Fmllkol13-74-1049ZqjvdyvUniversity Hospitals Conneaut [facility] (20 sources)Acetaminophen / dichloralphenazone / isomethepteneDrug Allergy 79-28-9064AidagdeCleveland Clinic [facility]on [facility] (1 source)ClarithromycinDrug Mmmizzu10-01-1058FpvHocking Valley Community Hospital Repository (1 source)NaproxenDrug Tvdwefp10-85-7711ItfHocking Valley Community Hospital Repository (1 source)ClarithromycinDrug Zauvygh63-13-4159ZzixwopudMadison Health Repository (1 source)EsomeprazoleDrug Gywtesd21-63-4241WuwdsxhtfMadison Health Repository (1 source)NaproxenDrug Bqpfsbv06-04-3070BwnhdhnegMadison Health Repository (13 sources)ClarithromycinAllergy to mgostzvuu46-70-3453IkfdsbkKPDV Healthcare (1 source)MCCAFXR-KARQTQCVE-RJPTEDJJKKVZ; Translations: [DGYECJW-SIGIJMWXJ-PDKLATJGYSRD]Propensity to adverse reactions to drug (disorder)60-37-6194KvxwppzghgClinton [facility] Hospital Rep[facility] Medications Current Medications MedicationDrug Class(es)DatesSig (Normalized)Sig (Original)8 hr acetaminophen 650 mg extended release oral tablet (20 sources)Start: 66-73-1077plbr 1 tablet by mouth every twelve hours Acetaminophen (Tylenol Arthritis Pain) 650 mg tablet extended release Active 650 MG PO Every 12 hours January 28, 2024 12:00am Complies with drug therapyStart: 06-12-2018 End: 58-47-5384Iupwcaztenhvp (Tylenol Extra Strength) 500 mg tablet Active 500 MG PO As Directed January 28, 2024 11:13am Complies with drug therapytake 1 tablet by mouth every four hours as neededAcetaminophen 325 MG 1 tablet as needed Orally every 4 hrs Not-Takingalbuterol 0.833 mg/ml / ipratropium bromide 0.167 mg/ml inhalation solution (10 sources)Anticholinergic, beta2-Adrenergic Agonisttake 3 mL by inhalation every six hours as neededIpratropium-Albuterol 0.5-2.5 (3) MG/3ML 3 mL as needed Inhalation every 6 hrs for 30 days ActiveCpap (Continuous Positive Airway Pressure) (2 sources)Start: 36-10-6853Muhi (Continuous Positive Airway Pressure) Active 0 .Route January 28, 2024 12:00am As directed [facility] [place] Cpap (Continuous Positive Airway Pressure) unit (2 sources)Start: 19-75-3596Gexc (Continuous Positive Airway Pressure) unit Active 0 .Route January 28, 2024 12:00am As directed Boomsetdiclofenac sodium 0.01 mg/mg topical gel (6 sources)Nonsteroidal Anti-inflammatory DrugStart: 14-12-9871Hohqr: 05-25-2020 Diclofenac Sodium 1 % as directed Transdermal Twice a day May, Active melatonin 10 mg oral tablet (4 sources)Start: 44-59-0416sqbx 1 tablet by mouth once daily at bedtime Melatonin 10 mg tablet Active 10 MG PO Daily at bedtime January 28, 2024 12:00am Complies with drug therapymetOLazone 2.5 mg oral tablet (19 sources)Thiazide-like DiureticStart: 08-98-5801jizTOkbnjm (Zaroxolyn) 2.5 MG tablet 10/28/2022 Activenitrofurantoin, macrocrystals 25 mg / nitrofurantoin, monohydrate 75 mg oral capsule (20 sources)Nitrofuran AntibacterialStart: 11-07-2023 End: 75-20-5811ulip 1 capsule by mouth once daily at mealtimeNitrofurantoin Monohyd/M-Cryst 100 mg capsule Active 0 .ROUTE .COMPLEX May 27, 2025 4:34pm TAKE 1 CAPSULE BY MOUTH DAILY WITH FOOD Complies with drug therapyStart: 11-07-2023 End: 83-26-9639ffjk 1 capsule by mouth once dailyNitrofurantoin Monohyd/M-Cryst 100 mg capsule Discontinued 100 MG PO Daily November 07, 2023 1:00am November 07, 2023 3:09pmtake 1 capsule by mouth every twenty-four hoursNitrofurantoin Monohyd Macro 100 MG 1 capsule with food Orally daily for 30 days Activenystatin 868454 unt/ml topical cream (1 source)Polyene AntifungalNystatin 422672 UNIT/GM 1 application Externally Twice a day for 10 days Activeondansetron 4 mg oral tablet (20 sources)Serotonin-3 Receptor AntagonistStart: 08-11-2024 End: 53-22-2734wcsp 1 tablet by mouth three times daily as neededOndansetron Hcl 4 mg tablet Active 0 .ROUTE .COMPLEX March 29, 2025 10:50am TAKE 1 TABLET BY MOUTH THREE TIMES DAILY NEEDED *MUST LAST 30 DAYS* Complies with drug therapyStart: 01-27-2024 End: 28-96-5664takg 1 tablet by mouth twice daily as neededOndansetron Hcl 4 mg tablet Discontinued 0 .ROUTE .COMPLEX March 05, 2024 1:59pm May 04 12:10pm TAKE 1 TABLET BY MOUTH TWICE DAILY NEEDEDStart: 07-21-2018 End: 82-41-9325jija 1 tablet by mouth three times daily as needed for nausea and vomitingOndansetron (Zofran Odt) 4 mg Tablet,Disintegrating Discontinued 4 MG PO Three times daily as needed for Nausea And Vomiting July 21, 2018 1:00am September 29, 2018 4:59pmStart: 04-05-2018 End: 08-50-1115nmfv 1 tablet by mouth twice daily as neededondansetron (Zofran) 4 MG tablet Take 4 mg by mouth 2 (two) times a day as needed 02/25/2023 Active take 1 tablet by mouth three times daily as neededOndansetron HCl 4 MG 1 tablet Orally tid prn for 30 days ActiveOne Touch Glucometer (14 sources)Start: 40-29-2387Hma Touch Glucometer to check BS twice daily for 365 days Ultra Mar, ActiveRollator (20 sources)Start: 72-34-0684Pghyj: 55-00-9395Kaluulmz Jul, Active rOPINIRole 0.5 mg oral tablet (20 sources)Nonergot Dopamine AgonistStart: 02-24-2024 End: 06-16-9852mlji 1 tablet by mouth twice dailyRopinirole 0.5 mg tablet Active 0 .ROUTE .COMPLEX 60 February 25, 2025 10:07am TAKE 1 TABLET BY MOUTHTWICE DAILY Complies with drug therapyStart: 12-27-2022 End: 71-79-1112jWNYOQRlsx (Requip) 0.5 MG tablet 12/27/2022 Activetake 1 tablet by mouth at bedtimerOPINIRole HCl 0.5 mg TAKE 1 TABLET BY MOUTH 1-3 HOURS BEFORE bedtime for 90 ActiveSITagliptin 100 mg oral tablet (4 sources)Dipeptidyl Peptidase 4 Inhibitortake 1 tablet by mouth every twenty- four hoursJanuvia 100 MG 1 tablet Orally Once a day for 28 days ActiveWalker (Ultra-Light Rollator) misc (2 sources)Start: 58-90-0911Tfbwlp (Ultra-Light Rollator) misc Active 0 .Route 1 September 07, 2024 1:00am As directed Completed/Discontinued Medications MedicationDrug Class(es)DatesSig (Normalized)Sig (Original)acetaminophen 325 mg / HYDROcodone bitartrate 5 mg oral tablet (20 sources)Opioid AgonistStart: 98-64-3422zuqx 1 tablet by mouth twice daily as neededHYDROcodone-Acetaminophen 5-325 MG 1 tablet as needed Orally twice daily for 30 days G89.29 Chronicpain Dec, Not-TakingStart: 04-14-2019 End: 45-95-9990Pwpcrugmwpj-Acetaminophen ([place]) 5-325 mg Tablet Discontinued April 14, 2019 12:00am December 02, 2023 2:42pmbenzonatate 100 mg oral capsule (20 sources)Non-narcotic AntitussiveStart: 06-28-2022 End: 76-49-3352neii 1 capsule by mouth three times daily as neededbenzonatate (Tessalon) 100 MG capsule TAKE 1 CAPSULE BY MOUTH THREE TIMES DAILY NEEDED 06/28/2022 06/14/2025 Discontinued (Therapy completed)cephalexin 500 mg oral capsule (20 sources)Cephalosporin AntibacterialStart: 02-25-2023 End: 20-46-7568xnix 1 capsule by mouth in the morningcephalexin (Keflex) 500 MG capsule Take 500 mg by mouth in the morning. 02/25/2023 06/14/2025 Discontinued (Therapy completed)Start: 07-21-2018 End: 46-89-1252inxq 1 capsule by mouth twice dailyCephalexin (Keflex) 500 mg capsule Discontinued 500 MG PO Twice daily 29 03July 21, 2018 1:00am July 27, 2018 1:00am July 28, 2018 1:02amciprofloxacin 500 mg oral tablet (20 sources)Quinolone AntimicrobialStart: 01-08-2023 End: 19-42-5614znue 1 tablet by mouth every twelve hoursciprofloxacin (Cipro) 500 MG tablet Take 500 mg by mouth every 12 (twelve) hours. 01/08/2023 025 Discontinued (Therapy completed)Start: 30-35-5127xnvb 1 tablet by mouth every twelve hoursCipro 500 MG 1 tablet Orally every 12 hrs for 5 days Dec, Not-TakingStart: 00-55-0438dggb 1 tablet by mouth every twelve hours clotrimazole 10 mg oral lozenge (13 sources)Azole AntifungalStart: 01-08-2023 End: 87-41-9460ctskqhpqqnvs (Mycelex) 10 MG black TAKE 1 (ONE) black five times a day 01/08/2023 06/14/2025 Discontinued (Therapy completed)doxycycline hyclate 100 mg oral capsule (20 sources)Tetracycline-class DrugStart: 07-07-2021 End: 58-49-5094pyue 1 capsule by mouth twice dailyDoxycycline Hyclate 100 mg capsule Discontinued 100 MG PO Twice daily 05 07July 07, 2021 12:00am December 02, 2023 2:42pmestradiol 0.1 mg/ml vaginal cream (20 sources)EstrogenStart: 02-25-2023 End: 90-53-9284xickirbtr (Estrace) 0.1 MG/GM vaginal cream INSERT 1 (ONE) gram VAGINALLY twice a week 02/25/2023 06/14/2025 Discontinued (Therapy completed) Start: 22-69-5155Jsifpjm 0.1 MG/GM 1 gm Vaginal twice a week for 30 days Feb, ActiveStart: 27-32-6799Qxkpw Glucose Scanning Solano (Freestyle Lambert 2 Solano) misc (5 sources)Start: 12-02-2023 End: 48-16-2686Stinw Glucose Scanning Solano (Freestyle Lambert 2 Solano) misc Discontinued 0 .Route 1 December 02, 2023 12:00am January 28, 2024 11:19am As directedStart: 47-84-9126Uwmpn Glucose Scanning Solano (Freestyle Lambert 2 Solano) misc Active 0 .Route 1 December 02, 2023 12:00am As directedFlash Glucose Sensor (Freestyle Lambert 2 Sensor) kit (5 sources)Start: 12-02-2023 End: 43-58-4046Ipyaf Glucose Sensor (Freestyle Lambert 2 Sensor) kit Discontinued 0 .Route 1 December 02, 2023 12:00am January 28, 2024 11:19am As directedStart: 07-96-7822Eopcd Glucose Sensor (Freestyle Lambert 2 Sensor) kit Active 0 .Route 1 December 02, 2023 12:00am As directedfluticasone propionate 0.05 mg/actuat metered dose nasal spray (4 sources)CorticosteroidStart: 01-28-2024 End: 78-59-2128twmw 1 spray(s) nasal route once dailyFluticasone Propionate 50 mcg/actuation spray,suspension Discontinued 1 SPRAY INTRANASAL Daily 1 30May 2023 12:00am March 09, 2025 3:10pm administer into each nostrilfurosemide 40 mg oral tablet (20 sources)Loop DiureticStart: 05-26-2024 End: 17-15-3033kkud 1 tablet by mouth once dailyFurosemide 40 mg tablet Discontinued 0 .ROUTE .COMPLEX 135 May 26, 2024 8:46am December 07, 2024 1:55pm TAKE 1 & 1/2 (ONE AND ONE-HALF) TABLETS BY MOUTH DAILYStart: 05-26-2024 End: 25-01-3872Gtkwfnyoce 40 mg tablet Discontinued 60 MG PO Every morning May 26, 2024 12:00am May 26, 2024 8:46amStart: 05-26-2024 End: 48-35-0521okab 60 mg by mouth once daily in the morningFurosemide Discontinued 60 MG PO Every morning May 26, 2024 12:00am May 26, 2024 8:46amStart: 12-29-2020 End: 79-00-3983mhfjcqkdhm (Lasix) 40 MG tablet 12/20/2022 ActiveStart: 61-59-3426ngxg 0.5 tablet by mouth every other dayFurosemide 40 MG 1/2 tablet Orally QOD Dec, Not-TakingFurosemide 40 MG 1.5 Orally Once a day for 90 days Activegabapentin 300 mg oral capsule (20 sources)Anti-epileptic AgentStart: 04-05-2018 End: 54-81-8445efob 2 capsules by mouth in the morninggabapentin (Neurontin) 300 MG capsule Take 600 mg by mouth in the morning. 01/22/2023 06/14/2025 Dis continued (Therapy completed)Start: 04-05-2018 End: 61-23-7933elvo 600 mg by mouth once dailyGabapentin Discontinued 600 MG PO Daily April 05, 2018 12:00am December 02, 2023 2:42pmKetorolac (20 sources)Nonsteroidal Anti-inflammatory Drug, Cyclooxygenase InhibitorStart: 13-74-1187Vmhilwh per 15 mg Sep, 30 uLlevoFLOXacin 250 mg oral tablet (12 sources)Quinolone AntimicrobialStart: 04-07-2018 End: 19-61-3464bkou 1 tablet by mouth once daily for urinary tract infection Levofloxacin (Levaquin) 250 mg tablet Discontinued 250 MG PO Daily April 07, 2018 12:00am June 12, 2018 1:22pm take until finished for UTILORazepam 0.5 mg oral tablet (20 sources)BenzodiazepineStart: 09-02-2019 End: 69-42-8639Mdpwpbhqu (Ativan) 0.5 mg Tablet Discontinued September 02, 2019 1:00am December 02, 2023 2:42pmStart: 09-02-2019 End: 09-21-5326Mvjkqvlpo (Ativan) 0.5 mg Tablet Discontinued TABLET September 02, 2019 1:00am December 02, 2023 2:42pmStart: 06-12-2018 End: 34-37-4727Ypnklvtbe (Ativan) 0.5 mg Tablet Discontinued 0.5 MG PO As Directed June 12, 2018 12:00am July 21, 2018 2:54pmStart: 04-05-2018 End: 98-26-6153ytyg 1 tablet by mouth once dailyLorazepam 0.5 mg tablet Discontinued 0.5 MG PO Daily April 05, 2018 12:00am April 06, 2018 1:36am losartan potassium 25 mg oral tablet (20 sources)Angiotensin 2 Receptor BlockerStart: 08-28-2010 End: 24-53-4500twmo 1 tablet by mouth once dailyLosartan 25 mg tablet Discontinued 25 MG PO Daily April 05, 2018 12:00am December 02, 2023 2:43pm metFORMIN hydrochloride 500 mg oral tablet (20 sources)BiguanideStart: 04-05-2018 End: 46-65-8422hfxz 1 tablet by mouth twice dailymetFORMIN (Glucophage) 500 MG tablet TAKE 1 TABLET BY MOUTH WITH A MEAL TWICE DAILY 01/17/2023 06/14/2025 Discontinued (Therapy completed)take 1 tablet by mouth every twenty-four hours metFORMIN HCl 500 MG 1 tablet with a meal Orally Once a day for 30 day(s) Active methocarbamol 500 mg oral tablet (14 sources)Muscle RelaxantStart: 01-01-2024 End: 92-10-7325afhy 1 tablet by mouth once daily at bedtimeMethocarbamol 500 mg tablet Discontinued 500 MG PO Daily at bedtime January 01, 2024 12:00am September 07, 2024 2:40pmtake 1 tablet by mouth every six hoursMethocarbamol 750 MG 1 tablet Orally every 6 hrs Not-Takingnaproxen sodium 550 mg oral tablet (20 sources)Nonsteroidal Anti-inflammatory DrugStart: 04-14-2019 End: 42-22-5544pizl 1 tablet by mouth twice dailyNaproxen Sodium (Anaprox Ds) 550 mg Tablet Discontinued 550 MG PO Twice daily April 14, 2019 12:00am December 02, 2023 2:43pmStart: 06-12-2018 End: 50-86-5681ryau 1 tablet by mouth twice dailyNaproxen Sodium (Anaprox Ds) 550 mg Tablet Discontinued 550 MG PO Twice daily June 12, 2018 12:00am June 12, 2018 1:32pmomeprazole 20 mg delayed release oral capsule (20 sources)Proton Pump InhibitorStart: 01-03-2023 End: 08-75-5841vbbqclends (PriLOSEC) [address] capsule TAKE 1 CAPSULE BY MOUTH 30 MINUTES before morning meal 01/03/2023 06/14/2025 Discontinued (Therapy completed)Start: 04-05-2018 End: 15-78-2031hbti 1 capsule by mouth twice dailyOmeprazole 20 mg capsule,delayed release(DR/EC) Discontinued 20 MG PO Twice daily April 05, 2018 12:00am January 28, 2024 11:15amoxybutynin chloride 5 mg oral tablet (20 sources)Cholinergic Muscarinic AntagonistStart: 04-05-2018 End: 08-00-7002hvqu 1 tablet by mouth in the morningoxybutynin (Ditropan) 5 MG tablet Take 5 mg by mouth in the morning. 01/22/2023 06/14/2025 Discontinued (Therapy completed)oxyCODONE hydrochloride 5 mg oral tablet (20 sources)Opioid AgonistStart: 09-29-2018 End: 21-44-4945yija 1 tablet by mouth once daily as needed for painOxycodone 5 mg tablet Discontinued 1 TAB PO Daily as needed for Pain September 29, 2018 1:00am December 02, 2023 2:43pmStart: 07-21-2018 End: 23-93-0618wvgi 1 capsule by mouth every six hours as needed for pain Oxycodone 5 mg capsule Discontinued 5 MG PO Q6H as needed for pain 4 2 July 21, 2018 July 22, 2018 1:00am July 23, 2018 1:02ammicroencapsulated potassium chloride 20 meq extended release oral tablet (20 sources)Start: 03-05-2024 End: 59-53-2099Sjhltanwg Chloride (Klor-Con M20) 20 mEq tablet,ER particles/crystals Discontinued 20 MEQ PO Daily March 05, 2024 12:00am March 09, 2025 3:09pmStart: 36-42-7979exul 1 tablet by mouth every twenty-four hours Klor-Con M20 20 MEQ 1 tablet with food Orally Once a day for 30 days January, ActiveStart: 25-99-6267dyfm 1 tablet by mouth once daily at mealtime potassium chloride CR (K-Tab) 20 MEQ ER tablet Take 20 mEq by mouth Daily Take with food. 12/20/2022 ActivepredniSONE 10 mg oral tablet (12 sources)Start: 01-28-2024 End: 32-31-6879Jzkfloeuar 10 mg tablet Discontinued 10 MG PO As Directed January 28, 2024 2:40pm June 08, 2024 1:35pm 4 tablets daily x 3 days, 2 tablets daily x 3 days, 1 tablet daily x 7 days then stopStart: 07-18-2022 predniSONE 10 MG 4 tabs x 7 days, 3 tabs x 7 days, 2 tabs x 7 days, 1 tab x 7 days then stop OrallyOnce a day Jul, ActivetiZANidine 2 mg oral tablet (17 sources)Central alpha-2 Adrenergic AgonistStart: 04-14-2019 End: 58-13-9335Yexaipxsgw 2 mg Tablet Discontinued April 14, 2019 12:00am December 02, 2023 2:43pmStart: 04-14-2019 End: 83-87-4538Huqyyhlboc 2 mg Tablet Discontinued TABLET April 14, 2019 12:00am December 02, 2023 2:43pmtraMADol hydrochloride 50 mg oral tablet (20 sources)Opioid AgonistStart: 01-01-2024 End: 90-10-2689egjk 1 tablet by mouth twice daily as needed for painTramadol 50 mg tablet Discontinued 50 MG PO Twice daily as needed for pain 14 September 0742:40pm December 07, 2024 1:09pmStart: 01-01-2024 End: 21-52-1540undf 1 tablet by mouth every eight hours as neededTramadol 50 mg tablet Discontinued 50 MG PO Every 8 hours as needed January 01, 2024 12:00am January 01, 2024 11:09amStart: 04-07-2018 End: 42-64-2723djql 0.5-1 tablets by mouth every six hours as needed for pain Tramadol (Ultram) 50 mg tablet Discontinued 50 MG PO Q6H as needed for pain 45 7 April 07, 2018 12:00am June 12, 2018 1:22pm 1/2 - 1 tab po q 6 hours prn painvibegron 75 MG Oral Tablet [Gemtesa] (19 sources)take 1 tablet by mouth every twenty-four hoursGemtesa 75 MG 1 tablet Orally Once a day Not-Takingtake 1 tablet by mouth every twenty-four hours Gemtesa 75 MG 1 tablet Orally Once a day Activezolpidem tartrate 5 mg oral tablet (12 sources)gamma-Aminobutyric Acid-ergic AgonistStart: 04-14-2019 End: 62-76-3242upoh 1 tablet by mouth once daily at bedtime as neededZolpidem (Ambien) 5 mg Tablet Discontinued 5 MG PO Daily at bedtime as needed for Insomnia April 14, 2019 12:00am December 02, 2023 2:43pm Problems Active Problems Problem ClassificationProblemDateDocumented DateEpisodic/ChronicAcquired foot deformities (20 sources)Hammer toe; Translations: [Other hammer toe(s) (acquired), right foot]Onset: 218448-60-7756YoimvmwWervupwezr disorders (20 sources)Grief finding; Translations: [Adjustment disorder, unspecified] Onset: 01-08-2022 Resolved: 90-76-2526NfmwtiaJeqnotvy reactions (2 sources)Allergy status to other antibiotic agents status; Translations: [Allergy status to other drugs, medicaments and biological substances status] Onset: 96-87-5469EgtmtbsqOzakepu disorders (20 sources)Anxiety state; Translations: [Anxiety disorder, unspecified]Onset: 05-25-2021 Resolved: 22-74-7958JxuplwdUubinik tract disease (12 sources)Acute cholecystitis; Translations: [Acute cholecystitis]04-05-2018 EpisodicCardiac dysrhythmias (2 sources)Atrial premature depolarization; Translations: [Atrial premature depolarization]Onset: 51-46-2208KbfnaooZehzbcy obstructive pulmonary disease and bronchiectasis (20 sources)Bronchiolectasis; Translations: [Bronchiectasis, uncomplicated] ChronicCongestive heart failure; nonhypertensive (5 sources)Congestive heart failure; Translations: [Heart failure, unspecified] Onset: 150820-16-1258IvnebvcRfizdrub mellitus with complications (20 sources)Type 2 diabetes mellitus with hyperglycemia; Translations: [Type 2 diabetes mellitus]Onset: 58-43-9427NsrmxlpDqrppedh mellitus 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 (20 sources)Diabetes mellitus 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; Translations: [Type 2 diabetes mellitus 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s]Onset: 05-25-2021 Resolved: 28-15-5896JtfbaygNxqmeuyno of lipid metabolism (20 sources)Pure hypercholesterolemia; Translations: [Pure hypercholesterolemia] ChronicEsophageal disorders (20 sources)Gastroesophageal reflux disease; Translations: [Gastro-esophageal reflux disease without esophagitis]Onset: 05-25-2021 Resolved: 72-55-5544VotaaclBosregzvc hypertension (20 sources)Hypertensive disorder; Translations: [Essential (primary) hypertension]Onset: 05-25-2021 Resolved: 68-08-5902NodgbgmDtuzc and electrolyte disorders (1 source)Dehydration; Translations: [DEHYDRATION]Onset: 86-29-3764Iwcjihbo Headache; including migraine (20 sources)Muscular headache ; Translations: [Tension-type headache, unspecified, not intractable]ChronicHeart valve disorders (6 sources)Ejection murmur; Translations: [Cardiac murmur, unspecified] 25-62-2521GcxvxjetPtyqbnyhgsokb and screening for infectious disease (5 sources)Contact with and (suspected) exposure to other viral communicable diseases; Translations: [Encounter for immunization]Onset: 07-07-2021 Resolved: 82-32-1652SqeuopdtWrsvoqx and fatigue (8 sources)Weakness; Translations: [Other fatigue]Onset: 48-03-2227Cqarosor Nausea and vomiting (11 sources)Nausea; Translations: [Nausea]Onset: 05-25-2021 Resolved: 95-27-1035SnjsrwsbUingjfwbh of unspecified nature or uncertain behavior (2 sources)Neoplastic disease; Translations: [Neoplasm of unspecified behavior of bone, soft tissue, and skin]05-60-2640UnwrthmrEzmdbedfmcdtis (20 sources)Osteoarthritis; Translations: [Unspecified osteoarthritis, unspecified site]ChronicOther acquired deformities (6 sources)Equinus contracture of the ankle; Translations: [Contracture, left ankle]66-18-9826TstooxnEntdt acquired deformities (6 sources)Equinus contracture of the ankle; Translations: [Contracture, right ankle]47-56-0919YrdeyyhXvcbd aftercare (2 sources)Encounter for follow-up examination after completed treatment for conditions other than malignant neoplasmOnset: 01-08-2022 Resolved: 01-65-4636JosxudcnJbhlm aftercare (1 source)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; Translations: [OTH [facility] CURRENT DRUG THERAPY]Onset: 84-53-8670TrdloqriTyqrq aftercare (1 source)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; Translations: [[facility] USE ORAL HYPOGLYCEMIC DX]Onset: 33-98-1226MiwifvgyTgprm and ill- defined heart disease (20 sources)Cardiomegaly; Translations: [Cardiomegaly]ChronicOther and ill- defined heart disease (2 sources)Cardiomegaly; Translations: [Cardiomegaly]Onset: 66-13-0933Klxdkqu Other diseases of bladder and urethra (20 sources)Overactive bladder; Translations: [Overactive bladder]ChronicOther diseases of bladder and urethra (1 source)Overactive bladderOnset: 11-30-2021 Resolved: 60-91-9578KcvcfmeCsmzc diseases of veins and lymphatics (13 sources)Lymphedema; Translations: [Lymphedema, not elsewhere classified] 93-25-0842ApfdxjyQahdv disorders of stomach and duodenum (10 sources)Indigestion; Translations: [Functional dyspepsia]EpisodicOther disorders of stomach and duodenum (2 sources)Functional dyspepsiaEpisodicOther endocrine disorders (20 sources)Hypoglycemia; Translations: [Hypoglycemia, unspecified]ChronicOther endocrine disorders (1 source)Hypoglycemia, unspecifiedOnset: 11-30-2021 Resolved: 51-06-8516CvztastJkmum hereditary and degenerative nervous system conditions (20 sources)Restless legs; Translations: [Restless legs syndrome]12-02-2023 ChronicOther hereditary and degenerative nervous system conditions (9 sources)Restless legs syndrome; Translations: [Restless legs syndrome (RLS)] Onset: 00-49-1735MmiwlduStjxf lower respiratory disease (20 sources)Interstitial lung disease; Translations: [Interstitial pulmonary disease, unspecified]79-49-2676UcqrmdgYncch lower respiratory disease (13 sources)Interstitial pulmonary disease, unspecified; Translations: [Postinflammatory pulmonary fibrosis]ChronicOther lower respiratory disease (20 sources)Cough; Translations: [Cough]EpisodicOther lower respiratory disease (5 sources)Posterior rhinorrhea; Translations: [Upper airway cough syndrome] 55-95-9531ShkyolwkCmadm lower respiratory disease (5 sources)Chronic cough; Translations: [Chronic cough]07-57-3871RqnfoocfBaueh lower respiratory disease (4 sources)Pneumonitis; Translations: [Other disorders of lung]01-21-2024 EpisodicOther lower respiratory disease (1 source)Other disorders of lung; Translations: [Pneumonia, organism unspecified]77-96-1658NadpwnppCljwr nervous system disorders (20 sources)Chronic pain; Translations: [Other chronic pain]ChronicOther nervous system disorders (1 source)Other chronic painChronicOther nervous system disorders (1 source)Difficulty in walking, not elsewhere classified; Translations: [DIFFICULTY IN WALKING NEC]Onset: 55-95-6685DgliukwJrvrf nervous system disorders (2 sources)Tremor, unspecifiedOnset: 01-08-2022 Resolved: 23-37-8564PwvbdvkuQtngx nervous system disorders (5 sources)Impairment of balance; Translations: [Other abnormalities of gait and mobility]34-98-8849WmiamoxgUqjvm nervous system disorders (1 source)Other abnormalities of gait and mobility; Translations: [Other symptoms involving nervous and musculoskeletal systems]23-68-7977VrkfelvaNeqfk non-traumatic joint disorders (20 sources)Arthralgia of the lower leg; Translations: [Pain in right knee] EpisodicOther nutritional; endocrine; and metabolic disorders (1 source)Obesity, unspecified; Translations: [OBESITY UNSPECIFIED]Onset: 35-72-8569KhcmqpeUnxjx nutritional; endocrine; and metabolic disorders (1 source)Body mass index (BMI) 32.0-32.9, adult; Translations: [BODY MASS INDEX BMI 32.0-32.9 ADULT]Onset: 16-61-4425BxycwqbYcxus nutritional; endocrine; and metabolic disorders (1 source)Other disorders of bilirubin metabolism; Translations: [OTH DISORDERS BILIRUBIN METABOLISM]Onset: 13-35-7647EyxfpbsVcjnf nutritional; endocrine; and metabolic disorders (2 sources)Morbid obesity; Translations: [Morbid (severe) obesity due to excess calories]79-08-1492YptuorhWcbwy nutritional; endocrine; and metabolic disorders (3 sources)Morbid (severe) obesity due to excess calories; Translations: [Morbid obesity]Onset: 512763-36-1124VkzjgnyEmqnl screening for suspected conditions (not mental disorders or infectious disease) (3 sources)Other specified abnormal findings of blood chemistry; Translations: [Abnormal electrocardiogram [ECG] [EKG]]Onset: 87-29-8793AjfacfdvToruk skin disorders (2 sources)Seborrheic keratosis; Translations: [Other seborrheic keratosis] 84-64-2959IfgricqrSegwk skin disorders (2 sources)Inflamed seborrheic keratosis; Translations: [Inflamed seborrheic keratosis]15-12-4905EbrtotqcJslsc upper respiratory disease (20 sources)Seasonal allergy; Translations: [Other seasonal allergic rhinitis] ChronicPeri-; endo-; and myocarditis; cardiomyopathy (except that caused by tuberculosis or sexually transmitted disease) (20 sources)Cardiomyopathy; Translations: [Cardiomyopathy, unspecified]Chronic Pneumonia (except that caused by tuberculosis or sexually transmitted disease) (20 sources)Pneumonia; Translations: [Pneumonia, unspecified organism]Onset: 923295-14-9491AsnbcxdeGnuqivmt codes; unclassified (20 sources)Sleep apnea; Translations: [Sleep apnea, unspecified]ChronicResidual codes; unclassified (20 sources)Obstructive sleep apnea syndrome; Translations: [Obstructive sleep apnea (adult) (pediatric)]91-39-8948HltionkQfuhqtlu codes; unclassified (2 sources)Obstructive sleep apnea (adult) (pediatric); Translations: [OBSTRUCTIVE SLEEP APNEA]Onset: 08-01-2021 Resolved: 73-96-8491YgjgaptFubkxhta codes; unclassified (1 source)Sleep apnea, unspecified; Translations: [SLEEP APNEA UNSPECIFIED] Onset: 02-50-5469JmrzsauUtpdekeq codes; unclassified (1 source)Obstructive sleep apnea (adult)(pediatric); Translations: [Obstructive sleep apnea (adult) (pediatric)]Onset: 33-61-2228JbioxldRjtdfyjb codes; unclassified (1 source)Chills (without fever)EpisodicResidual codes; unclassified (2 sources)Generalized edema; Translations: [Generalized edema]Onset: 07-07-2025 EpisodicSpondylosis; intervertebral disc disorders; other back problems (20 sources)Spondylosis; Translations: [Spondylosis, unspecified]Chronic Spondylosis; intervertebral disc disorders; other back problems (20 sources)Lumbar radiculopathy; Translations: [Radiculopathy, lumbar region] EpisodicThyroid disorders (20 sources)Goiter; Translations: [Nontoxic goiter, unspecified]ChronicTransient cerebral ischemia (20 sources)Transient cerebral ischemia; Translations: [Other transient cerebral ischemic attacks and related syndromes]ChronicUnclassified (1 source)CONTACT W/AND (SUSP) EXPOS COVID-19; Translations: [CONTACT W/AND (SUSP) EXPOS COVID-19]Onset: 42-41-3534Layamlmreiav (1 source)ELEV LVLS LIVER TRANSAMINASE LVLS; Translations: [ELEV LVLS LIVER TRANSAMINASE LVLS]Onset: 10-26-5394Nlwhqhxjjopm (1 source)Interstitial pulmonary disease, unspecified; Translations: [Interstitial pulmonary disease, unspecified]Onset: 54-62-5920Nvehiuyekgvh (1 source)Nontoxic goiter, unspecified; Translations: [Nontoxic goiter, unspecified]Onset: 89-35-7145Zbrmasijjmxr (1 source)Cough, unspecified; Translations: [Cough, unspecified]Onset: 75-50-6327Aipdlsntpdnb (1 source)Cough, unspecified; Translations: [Cough, unspecified]Onset: 73-17-6458Idlnyvm tract infections (10 sources)Urinary tract infection, site not specified; Translations: [UTI SITE NOT SPECIFIED]Onset: 01-08-2022 Resolved: 61-40-8986Nqgmzdgc Past or Other Problems Problem ClassificationProblemDateDocumented DateEpisodic/ChronicBacterial infection; unspecified site (1 source)Unspecified Escherichia coli [E. coli] as the cause of diseases classified elsewhere; Translations:[UNS E COLI CAUSE DX CLASS ELSEWHERE]Onset: 48-35-2519IfdkgnxtDcbncdaf mellitus 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 (5 sources)Impaired fasting glycemia; Translations: [Impaired fasting glucose] EpisodicE Codes: Fall (1 source)Unspecified fall, initial encounter; Translations: [UNSPECIFIED FALL INITIAL ENCOUNTER]Onset: 53-08-3701LfhhprxtSqhfd of unknown origin (1 source)Fever, unspecified; Translations: [Fever, unspecified fever cause R50.9]Onset: 07-07-2021 Resolved: 79-82-2697CejmbtywRxurujncb and duodenitis (5 sources)Viral gastritis; Translations: [Gastritis, unspecified, without bleeding]EpisodicGenitourinary symptoms and ill-defined conditions (5 sources)Other symptoms and signs involving the genitourinary system; Translations: [Personal history of urinary (tract) infections]Onset: 05-25-2021 Resolved: 21-27-4411WmvbvnkoIkingziog (1 source)Influenza due to other identified influenza virus with other respiratory manifestations; Translations: [FLU D/T OTH ID FLU VIR OTH RSP MANF] Onset: 42-28-8430LddiimjwExdumrd (20 sources)Candidal stomatitis; Translations: [Candidiasis of skin and nail] Onset: 95-04-5442DheejdskElatd connective tissue disease (20 sources)Pain in both feet; Translations: [Pain in right foot]Onset: 213277-53-6329MslqtthpQotjq diseases of veins and lymphatics (1 source)Vascular insufficiency; Translations: [Venous insufficiency (chronic) (peripheral)]16-21-1163AtxwzosdRnzfu lower respiratory disease (1 source)Shortness of breathOnset: 05-24-2022 Resolved: 47-38-1849WdrbridxZvhsn lower respiratory disease (1 source)Personal history of pneumonia (recurrent); Translations: [PERSONAL HX OF PNEUMONIA RECURRENT]Onset: 34-97-9918YlusniymSbrpq non-traumatic joint disorders (1 source)Effusion, unspecified ankleOnset: 08-03-2021 Resolved: 94-56-6472ImsdjqwcIndjs nutritional; endocrine; and metabolic disorders (1 source)OverweightOnset: 08-28-2021 Resolved: 54-68-9607GkaxepssJfuegmbj codes; unclassified (4 sources)Localized edema; Translations: [Localized edema]Onset: 05-25-2021 Resolved: 54-45-7351PkwbmalwHwuptgtp codes; unclassified (3 sources)Edema, unspecified; Translations: [Edema, unspecified]Onset: 90-78-0212EwtaqzzyExooozea codes; unclassified (1 source)Disorientation, unspecified; Translations: [DISORIENTATION UNSPECIFIED]Onset: 07-20-3754TgnbcrqdWbfdobinvdd injury; contusion (1 source)Contusion of scalp, initial encounter; Translations: [CONTUSION SCALP INITIAL ENCOUNTER]Onset: 13-93-9333UabmdgqwCovnaurpzkmu (9 sources)Cough R05.9Onset: 08-03-2021 Resolved: 05-31-2022 Results Test NameValueInterpretationReference RangeFacilityB-TYPE NATRIURETIC PEPTIDEon 80-37-4842Ymvywjjljvd peptide B (Bld) [Mass/Vol]44 pg/mLNormal0-100UnGenesis HospitalComment on above:Performed By: #### [id number] #### [facility] ([facility]) [address] [place], [place] [address]KYE WITH AUTO DIFFERENTIALon 12-82-5937Amjqdfsof (Bld) [#/Vol] 0.09 10*3/uLNormal0.00-0.20UnGenesis HospitalComment on above: Performed By: #### [id number] #### [facility] ([facility]) [address] [place], [place] [address]Cypaaefby/100 WBC (Bld)1.5 %High0.0-1.0UnGenesis HospitalComment on above:Performed By: #### [id number] #### [facility] [address] [place], [place] [address]Bxyxicjwbmq (Bld) [#/Vol]0.26 10*3/uLNormal0.00-0.50UnGenesis HospitalComment on above:Performed By: #### [id number] #### [facility] ([facility]) [address] [place], [place] [address]Eegjlbfidnr/100 WBC (Bld)4.3 %Normal0.0-6.0UnGenesis HospitalComment on above:Performed By: #### [id number] #### [facility] ([facility]) [address] [place], [place] [address]Mglcaskzgqk distribution width (RBC) [Ratio]13.9 %Normal 11.5-15.0UnGenesis HospitalComment on above:Performed By: #### [id number] #### [facility] ([facility]) [address] [place] [place], [place] [address]XEHHALHEWCL MEAN CORPUSCULAR HEMOGLOBIN CONCENTRATION (G/DL) BY QKRCDHTRC59.0 g/uSHlsear19.0-35.0UnGenesis HospitalComment on above:Performed By: #### [id number] #### [facility] ([facility]) [address] [place], [place] [address]Daecitouuo (Bld) [Volume fraction]43.3 %Uwjhfe31.0-45.0 [facility] HospitalComment on above:Performed By: #### [id number] #### [facility] ([facility]) [address] [place], [place] [address]Iqrnyhcxsm (Bld) [Mass/Vol]14.3 g/eTCfixha75.0-15.0UnGenesis HospitalComment on above:Performed By: #### [id number] #### [facility] ([facility]) [address] [place], [place] [address]Pamkgwum granulocytes (Bld) [#/Vol]0.06 10*3/uLNormal0.00-0.20 [facility] HospitalComment on above:Performed By: #### [id number] #### [facility] ([facility]) [address] [place] [place], [place] [address]Kpekxtjy granulocytes/100 WBC (Bld)1.0 %Normal0.0-1.0UnGenesis HospitalComment on above:Performed By: #### [id number] #### [facility] [address] [place], [place] [address]Utybubpnaoe (Bld) [#/Vol]1.62 10*3/uLNormal1.20-4.00UnGenesis HospitalComment on above:Performed By: #### [id number] #### [facility] ([facility]) [address] [facility] [place], [place] [address]Jrbinhdumac/100 WBC (Bld)26.7 %Umlzsg28.0-45.0UnGenesis HospitalComment on above:Performed By: #### [id number] #### [facility] ([facility]) [address] [place], [place] [address]TDV (RBC) [Entitic mass]32.1 nqSbxojs65.0-33.0UnGenesis HospitalComment on above:Performed By: #### [id number] #### [facility] ([facility]) [address] [place], [place] [address]DGB (RBC) [Entitic vol]97.1 tEDwtcfx56.0-98.0UnGenesis HospitalComment on above:Performed By: #### [id number] #### [facility] ([facility]) [address] [place], [place] [address]Theogjwks (Bld) [#/Vol]0.70 10*3/uLNormal0.10-1.00UnGenesis HospitalComment on above:Performed By: #### [id number] #### [facility] ([facility]) [address] [place], [place] [address]Heaosnqzh/100 WBC (Bld)11.5 %Normal5.0-12.0UnGenesis HospitalComment on above:Performed By: #### [id number] #### [facility] ([facility]) [address] [place], [place] [address]Myceehufkvf (Bld) [#/Vol]3.34 10*3/uLNormal1.60-7.60UnGenesis HospitalComment on above:Performed By: #### [id number] #### [facility] ([facility]) [address] [place], [place] [address]Gtcoymgdtwv/100 WBC (Bld)55.0 %Dtgoix15.0-72.0UnGenesis HospitalComment on above:Performed By: #### [id number] #### [facility] ([facility]) [address] [place] [address]WRCT (PER 100 WBCS) BY AUTOMATED COUNT0.0 %Oqwpau5YlhgmvatgcGenesis HospitalComment on above:Performed By: #### [id number] #### [facility] ([facility]) [address] [place] [address]THGXCBUVC (10*3/UL) IN BLOOD AUTOMATED DGLSZ711 10*3/uLNormal 150-400UnGenesis HospitalComment on above:Performed By: #### [id number] #### [facility] ([facility]) [address] [place], [place] [address]EYT (Bld) [#/Vol]4.46 10*6/uLNormal3.80-5.00UnGenesis HospitalComment on above:Performed By: #### [id number] #### [facility] ([facility]) [address] [place], [place] [address]ZLM (Bld) [#/Vol]6.07 10*3/uLNormal4.00-10.60UnGenesis HospitalComment on above:Performed By: #### [id number] #### [facility] ([facility]) [address] [place], [place] [address]YLEQJKXVJRVZI METABOLIC PANELon 09-78-2169Sdukrut [Mass/Vol]3.1 g/dLLow3.5-5.7UnGenesis HospitalComment on above:Performed By: #### [id number] #### [facility] ([facility]) [address] [place], [place] [address]YQB [Catalytic activity/Vol]86 U/TEgjybo69-894HoyxehmvhnGenesis HospitalComment on above:Performed By: #### [id number] #### [facility] ([facility]) [address] [place], [place] [address]DTN [Catalytic activity/Vol]12 U/LNormal7-52UnGenesis HospitalComment on above:Performed By: #### [id number] #### [facility] ([facility]) [address] [place], [place] [address]Grqcx gap [Moles/Vol]7 mmol/LNormal7-20UnGenesis HospitalComment on above:Performed By: #### [id number] #### [facility] ([facility]) [address] [place], [place] [address]TKX [Catalytic activity/Vol]21 U/ALtbctn68-14PjdctyxdvcGenesis HospitalComment on above:Performed By: #### [id number] #### [facility] ([facility]) [address] [place], [place] [address]Shpadrxpx [Mass/Vol]1.7 mg/dLHigh0.3-1.0UnGenesis HospitalComment on above:Performed By: #### [id number] #### [facility] ([facility]) [address] [place], [place] [address]Oouibez [Mass/Vol]8.8 mg/dLNormal8.6-10.3UnGenesis HospitalComment on above:Performed By: #### [id number] #### [facility] [address] [place], [place] [address]Ldavnyoe [Moles/Vol]107 mmol/CYjggak40-256AppqpntxsoGenesis HospitalComment on above:Performed By: #### [id number] #### [facility] ([facility]) [address] [place], [place] [address]YB2 [Moles/Vol]30 mmol/ZCjezse92-30FyyrvaxwtqGenesis HospitalComment on above:Performed By: #### [id number] #### [facility] ([facility]) [address] [place], [place] [address]Uioybwrrum [Mass/Vol]0.76 mg/dLNormal0.60-1.20UnGenesis HospitalComment on above:Performed By: #### [id number] #### [facility] ([facility]) [address] [place] [address]JEHIRUKQNA FILTRATION RATE ML/MIN/1.73 SQ M.CHGZFIQNG83.3 mL/min/1.73m*2Normal>60.0UnGenesis HospitalComment on above: Result Comment: [facility]???s estimated glomerular filtration rate (eGFR) will no longer include consideration of race in its calculation. The [employer]???s eGFR Task Force developed new recommendations for the estimation of the glomerular filtration rate in the [place] They recommend immediate implementation of the new equation refit without the race variable in all laboratories because the calculation does not include race. In addition to not including race in the calculation and reporting, it included diversity in its development, and has acceptable performance characteristics and potential consequences that do not disproportionately affect anyone group of individuals.Performed By: #### [id number] #### [facility] ([facility]) [address] [place] [address]Puotfav [Mass/Vol]87 mg/dTFyavhq84-964RtfblacuogGenesis HospitalComment on above:Performed By: #### [id number] #### [facility] ([facility]) [address] [place] [address]Curokzfle [Moles/Vol]4.4 mmol/LNormal3.5-5.1UnGenesis HospitalComment on above:Performed By: #### [id number] #### [facility] ([facility]) [address] [place] [address]Cjoozes [Mass/Vol]6.7 g/dLNormal6.0-8.3UnGenesis HospitalComment on above:Performed By: #### [id number] #### [facility] ([facility]) [address] [place] [address]Yuscnx [Moles/Vol]140 mmol/NHhwhbt108-333PrjflnzlzqGenesis HospitalComment on above:Performed By: #### [id number] #### [facility] ([facility]) [address] [place], [place] [address]Kabm nitrogen [Mass/Vol]20 mg/dLNormal7-25UnGenesis HospitalComment on above:Performed By: #### [id number] #### [facility] ([facility]) [address] [place], [place] [address]HDOQ NITROGEN/CREATININE (MASS RATIO) IN SER/PLAS26.3Normal [facility] HospitalComment on above:Performed By: #### [id number] #### [facility] ([facility]) [address] [place] [address]ZDvj [id number] Attestation signed by Shruthi Ortega MD at 07/09/2025 10:51 AM I personally examined and spoke with Mrs. Quan with Dr. Benedict this morning. She understands the expected risks and agrees to proceed. Ms. Kristal Quan is an 89-year-old female patient with a past medical history of lower extremity swelling presents for right heart catheterization for further evaluation. Risks and benefits have been discussed extensively at bedside and patient consents to the aforementioned procedure. H&P reviewed. The patient was examined and there are no changes to the H&P. NormalUnGenesis HospitalLabon [id number] Salma Quan 1935 F Date Provider Department Center 07/09/2025 2245-[facility] RESOURCE [facility] Family History Problem Relation Age of Onset Emphysema Mother Cancer Father Family Status - Relation Status Age at Mother Father Brother DeceasedNormalUniRiverside Methodist HospitalNURSNOTEon 07-09-2025 NURSNOTERN educated pt on d/c instructions. This included: site care, limited physical activity, resume normal diet, future appointments, medications, and moderate sedation instructions. RN educated pt on when to notify physician and when to go to the hospital. RN encouraged pt to voice any questions or concerns, and answered any questions or concerns if pt verbalized. Pt was wheeled off of unit with all of belongings.[facility] HospitalHPon [id number] Patient ID: Salma Quan is a 89 y.o. female who presents for New Patient (Patient is here today to as a new patient to establish care with cardiology. Patient had a recent abnormal EKG), Hypertension, Congestive Heart Failure, Heart Murmur (Systolic ejection murmur/), and Edema (Bilateral lymphedema/). Had EKG due to beats which showed occasional APCs Uses walker at home I'm not good on my feet and I have lymphedema in L leg . Had been in group home with UTI and developed edema in legs years ago Got treatment with leg wrapping, etc and helped for a while but L leg gets pretty big Echo yesterday: mild LVH, normal LV systolic function, mildly elevated R sided pressures No chest pains. Can get a little bit of shortness of breath with activity if dose too much Hypertension Pertinent negatives include no chest pain, palpitations or shortness of breath. Congestive Heart Failure Pertinent negatives include no chest pain, palpitations or shortness of breath. Heart Murmur Pertinent negative symptoms include no chest pain and no palpitations. Edema Pertinent negative symptoms include no chest pain and no palpitations. Past medical history is significant for CHF. Review of Systems Respiratory: Negative for shortness of breath. Cardiovascular: Negative for chest pain and palpitations. Gastrointestinal: Negative for blood in stool. Genitourinary: Negative for hematuria. Neurological: Negative for syncope and light-headedness. Objective Visit Vitals BP 137/58 (BP Location: Left arm, Patient Position: Sitting) Pulse 51 Physical Exam Constitutional: Appearance: Normal appearance. She is obese. Cardiovascular: Rate and Rhythm: Normal rate and regular rhythm. Pulses: Carotid pulses are 2+ on the right side and 2+ on the left side. Radial pulses are 2+ on the right side and 2+ on the left side. Heart sounds: Murmur heard. Systolic murmur is present with a grade of 3/6. Comments: High pitched systolic murmur, loud Pitting edema extends up onto chest wall and is massive in lower extremities Pulmonary: Effort: Pulmonary effort is normal. Breath sounds: Normal breath sounds. Musculoskeletal: Right lower le+ Edema present. Left lower le+ Edema present. Skin: General: Skin is warm and dry. Neurological: Mental Status: She is alert and oriented to person, place, and time. Psychiatric: Mood and Affect: Mood normal. Behavior: Behavior normal. Assessment/Plan Mrs. Quan is interesting: by exam she has massive pitting edema onto chest wall (anasarca) however, last BNP and Cr were normal this spring and echo yesterday shows normal LV function. Will check CMP, BNP, hgb, spot urine albumin and creatinine. Plan right heart cath to assess filling pressures directly. Diagnosis Plan 1. Anasarca 2. Morbid obesity (CMS/HCC) 3. Atrial premature beats No orders of the defined types were placed in this encounter. No results found for this or any previous visit (from the past 36 hours). Follow up in about 6 weeks (around 08/18/2025).NormalUnGenesis HospitalOffice Visiton [id number]-up [id number] Salma Quan 1935 F Date Provider Department Center 07/07/2025 [id number]-[id number] ORTEGA CARD [facility] Family History Problem Relation Age of Onset Emphysema Mother Cancer Father Family Status - Relation Status Age at Mother Father Brother Level of Service:[address] [place] OFFICE/OUTPATIENT NEW HIGH MDM 60 MINUTES Reason for Visit and Comments: New Patient [632] - Patient is here today to as a new patient to establish care with cardiology. Patient had a recent abnormal EKG Hypertension [838787] Congestive Heart Failure [127] Heart Murmur [124] - Systolic ejection murmur Edema [[id number]] - Bilateral lymphedemaNormalUniversLakeHealth Beachwood Medical CenterNo Panel Informationon 08-00-0859HOGVSaint Francis Medical CenterType of biopsy: tangential Informed consent: discussed and [...] taken yes Amount of lidocaine used: 1.0 [facility] HealthAutomated epithelial cells count in urine sediment (number/area)on 80-05-7115Qsghddhaju cells Auto (Urine sed) [#/Area]MODERATE #/LPFNONE/RAREMadison HealthAutomated leukocytes count in urine sediment (number/area)on 12-25-2023 WBC Auto (Urine sed) [#/Area]20-50 #/HPF0-2FTogus [facility] Center Automated urine specific gravity by refractometryon 61-02-8736Uozeouro gravity Refractometry automated (U) [Rel density]1.0201.005-1.025Madison HealthBilirubin Auto test strip (U) [Mass/Vol]on 33-88-1885Hincoqtxb (U) [Mass/Vol]NegativeNEGATIVEMadison HealthCast typing in urine sediment by light microscopyon 50-09-3674Xkyur LM Nom (Urine sed)NONE SEEN #/LPFNONE SEENMadison HealthColor Auto (U)on 15-04-6846Osctd (U)YELLOWYELLOWMadison HealthKetones Auto test strip (U) [Mass/Vol]on 34-93-9202Fsyrkud (U) [Mass/Vol]NegativeNEGATIVEMadison HealthMucus LM Ql (Urine sed)on 25-53-7416Vahoz Ql (Urine sed)NONE SEEN NONE [facility] HospitalProtein Auto test strip (U) [Mass/Vol] on 33-01-8536Mfmjnsa (U) [Mass/Vol]NegativeNEG/TRACEAvita Health System Bucyrus Hospitalpecific gravity Auto test strip (U) [Rel density]on 76-97-5107Uibwymum gravity (U) [Rel density]CLEARCLEARFTogus VA Medical CenterUrine bacteria detection by automated methodon 01-65-3877Ihyyyokh Auto Ql (U)TRACE #/HPFNONE [facility] HospitalUrine glucose measurement by test strip (mass/volume)on 40-70-8426Bpsdypt Test strip (U) [Mass/Vol]Negative NEGATIVEMadison HealthUrine hemoglobin detection by automated test stripon 22-29-0577Umpwmqwnce Auto test strip Ql (U)MODERATENEGMercy Health Defiance HospitalUrine nitrite detection by automated test strip on 94-54-9624Ioqggbp Auto test strip Ql (U)NegativeNEGRiverside Methodist HospitalUrine sediment crystal identification by light microscopyon 51-88-2267Ircklbsq LM Nom (Urine sed)None Seen #/HPFNone [facility] Medical CenterUrine sediment leukocyte count by microscopy (number/high power field)on 47-80-4378CVF LM.HPF (Urine sed) [#/Area]2-5 #/HPFNONE [facility]'s HospitalUrobilinogen Auto test strip (U) [Mass/Vol]on 12-25-2023 Urobilinogen Qn (U)1.0 {Narinder'U}/dL0.2-1.0Madison HealthpH Auto test strip (U)on 15-83-8173oO (U)6.5 [pH]5.0-9.0Madison HealthCBC AUTO DIFFon 66-78-5521ORHK #0.1 103/ulNormal0.0-0.1The [facility] HospitalComment on above:Performed By: #### [email or web address] #### [facility] [address] [place] [address] Dr. Yilan ChangBasophils/100 WBC (Bld)1.1 %Normal0.2-2.0[facility] Comment on above:Performed By: #### [email or web address] #### [facility] [address] [place] [address] Dr. Eliecer Farias #0.2 103/ulNormal0.0-0.7The [facility] HospitalComment on above: Performed By: #### [email or web address] #### [facility] [address] [place] [address] Dr. Eliecer Salasosinophils/100 WBC (Bld)3.6 %Normal0.9-7.0The [facility] Comment on above:Performed By: #### [email or web address] #### [facility] [address] [place] [address] Dr. Eliecer Salasrythrocyte distribution width (RBC) [Ratio]18.3 %Critically high 11.0-15.0The [facility] HospitalComment on above:Performed By: #### [email or web address] #### [facility] [address] [place] [address] Dr. Eliecer DasHematocrit (Bld) [Volume fraction]34.9 %Critically low36.0-48.0 The [facility] HospitalComment on above:Performed By: #### [email or web address] #### [facility] [address] [place] [address] Dr. Eliecer DasHemoglobin (Bld) [Mass/Vol]12.4 g/dHCwqmxm49.0-16.0The [facility] HospitalComment on above:Performed By: #### [email or web address] #### [facility] [address] [place] [address] Dr. Eliecer Swanson #0.08 10e3/ulCritically high0.00-0.03The [facility] Comment on above:Performed By: #### [email or web address] #### [facility] [address] [place] [address] Dr. Eliecer Swanson %1.2 %Critically high0.0-0.5The [facility] HospitalComment on above:Performed By: #### [email or web address] #### [facility] [address] [address] [address] Eliecer Mccann #1.9 103/ulNormal1.2-3.8The [facility] HospitalComment on above:Performed By: #### [email or web address] #### [facility] [address] [place] [address] Dr. Eliecer Hardinghocytes/100 WBC (Bld)29.5 %Hjsupr26.5-60.0The [facility] HospitalComment on above:Performed By: #### [email or web address] #### [facility] [address] [place] [address] Dr. Eliecer Benson DIFF REQNONormalThe [facility] HospitalComment on above: Performed By: #### [email or web address] #### [facility] [address] [place] [address] Dr. Eliecer Rodriguez (RBC) [Entitic mass]36.5 pgCritically high26.7-34.0The [facility] HospitalComment on above:Performed By: #### [email or web address] #### [facility] [address] [place] [address] Dr. Eliecer Leonardo (RBC) [Mass/Vol]35.5 g/dLCritically high29.9-35.2The [facility] HospitalComment on above:Performed By: #### [email or web address] #### [facility] [address] [place] [address] Dr. Eliecer Leonardo (RBC) [Entitic vol]102.6 fLCritically high81.0-99.0The [facility] HospitalComment on above:Performed By: #### [email or web address] #### [facility] [address] [place] [address] Dr. Eliecer Salas #0.8 103/ulNormal0.3-0.8The [facility] HospitalComment on above:Performed By: #### [email or web address] #### [facility] [address] [place] [address] Dr. Eliecer Stuartocytes/100 WBC (Bld)12.1 %Critically high1.7-12.0The [facility] HospitalComment on above:Performed By: #### [email or web address] #### [facility] [address] [place] [address] Dr. Eliecer Rogers #3.4 103/ulNormal1.4-6.5The [facility] HospitalComment on above:Performed By: #### [email or web address] #### [facility] [address] [place] [address] Dr. Eliecer Mckeonutrophils/100 WBC (Bld)52.5 %Iyvgyr06.0-75.0The [facility] HospitalComment on above:Performed By: #### [email or web address] #### [facility] [address] [place] [address] Dr. Eliecer Mcdaniel mean volume (Bld) [Entitic vol]9.6 fLNormal9.5-13.5The [facility] HospitalComment on above:Performed By: #### [email or web address] #### [facility] [address] [place] [address] Dr. Eliecer GonsalesT236 103/hvZpzbjv506-974Oly [facility] HospitalComment on above: Performed By: #### [email or web address] #### [facility] [address] [place] [address] Dr. Eliecer DasRBC3.40 106/ulCritically low4.20-5.40The [facility] HospitalComment on above:Performed By: #### [email or web address] #### [facility] [address] [place] [address] Dr. Eliecer DasWBC6.4 103/ulNormal4.0-11.0The [facility] HospitalComment on above: Performed By: #### [email or web address] #### [facility] [address] [place] [address] Dr. Eliecer DasPARSONS OF [facility] GLUCOSEon 02-35-1629Tdtglsj [Mass/Vol]185 mg/dL Critically ihvf40-673Itw [facility] HospitalComment on above:Performed By: #### POCGLUC #### [facility] [address] [place], [place] [id number] Dr. Eliecer SolanoF 14(COMP METB)on 62-34-2941Bdoehir [Mass/Vol]2.1 g/dL Critically low3.4-5.0The [facility] Centerment on above:Performed By: #### [email or web address] #### [facility] [address] [place] [address] Dr. Eliecer DasAlbumin/Globulin [Mass ratio]0.5 {ratio}NormalThe [facility] HospitalComment on above:Performed By: #### [email or web address] #### [facility] [address] [place] [address] Dr. Eliecer Mallory [Catalytic activity/Vol]75 U/HWcjiov67-755Vtj [facility] HospitalComment on above:Performed By: #### [email or web address] #### [facility] [address] [place] [address] Dr. Eliecer AndrewsT [Catalytic activity/Vol]27 U/YBlfqdp65-97Emw [facility] HospitalComment on above:Performed By: #### [email or web address] #### [facility] [address] [place] [address] Dr. Eliecer Elias gap [Moles/Vol]9.6 mmol/LNormalThe [facility] HospitalComment on above:Performed By: #### [email or web address] #### [facility] [address] [place] [address] Dr. Eliecer DasAST [Catalytic activity/Vol]38 U/LCritically njlc10-27Hmb [facility] HospitalComment on above:Performed By: #### [email or web address] #### [facility] [address] [place] [address] Dr. Eliecer DasBilirubin [Mass/Vol]1.0 mg/dLNormal0.2-1.0The [facility] Comment on above:Performed By: #### [email or web address] #### [facility] [address] [place] [address] Dr. Eliecer DasCalcium [Mass/Vol]9.0 mg/dLNormal8.5-10.1The [facility] Comment on above:Performed By: #### [email or web address] #### [facility] [address] [address] [address] Eliecer DasChloride [Moles/Vol]104 mmol/MYtzpul15-126Gqk [facility] Comment on above:Performed By: #### [email or web address] #### [facility] [address] [address] [address] Eliecer DasCO2 [Moles/Vol]28.9 mmol/IZezpob92.0-32.0The [facility] Comment on above:Performed By: #### [email or web address] #### [facility] [address] [address] [address] Eliecer DasCreatinine [Mass/Vol]0.85 mg/dLNormal0.55-1.02The [facility] HospitalComment on above:Performed By: #### [email or web address] #### [facility] [address] [place] [address] Dr. Eliecer SalasGFR-AF [place]IZ[place]>60Normal>=60The [facility] HospitalComment on above:Performed By: #### [email or web address] #### [facility] [address] [address] [address] Eliecer SalasGFR-NON AF [place]>60Normal>=60The [facility] HospitalComment on above:Performed By: #### [email or web address] #### [facility] [address] [place] [address] Dr. Eliecer DasGlobulin (S) [Mass/Vol]3.9 g/dLNormalThe [facility] HospitalComment on above:Performed By: #### [email or web address] #### [facility] [address] [address] [address] Eliecer DasGlucose [Mass/Vol]132 mg/dLCritically wbnx08-018Hjw [facility] HospitalComment on above:Performed By: #### [email or web address] #### [facility] [address] [place] [address] Dr. Eliecer DasPotassium [Moles/Vol]4.5 mmol/LNormal3.5-5.1The [facility] Comment on above:Performed By: #### [email or web address] #### [facility] [address] [place] [address] Dr. Eliecer DasProtein [Mass/Vol]6.0 g/dLCritically low6.4-8.2The [facility] HospitalComment on above:Performed By: #### [email or web address] #### [facility] [address] [place] [address] Dr. Eliecer Costadium [Moles/Vol]138 mmol/FIgmjgc707-036Wge [facility] Comment on above:Performed By: #### [email or web address] #### [facility] [address] [place] [address] Dr. Eliecer DasUrea nitrogen [Mass/Vol]14.0 mg/dLNormal7.0-18.0The [facility] HospitalComment on above:Performed By: #### [email or web address] #### [facility] [address] [place] [address] Dr. Eliecer DasUrea nitrogen/Creatinine [Mass ratio]16.5 mg/mgNormalThe [facility] HospitalComment on above:Performed By: #### [email or web address] #### [facility] [address] [place] [address] Dr. Eliecer De La Vega AUTO DIFFon 36-86-1976LPNW #0.1 103/ulNormal0.0-0.1The [facility] HospitalComment on above:Performed By: #### [email or web address] #### [facility] [address] [place] [address] Dr. Eliecer DasBasophils/100 WBC (Bld)1.4 %Normal0.2-2.0The [facility] Comment on above:Performed By: #### [email or web address] #### [facility] [address] [place] [address] Dr. Eliecer Farias #0.3 103/ulNormal0.0-0.7The [facility] HospitalComment on above: Performed By: #### [email or web address] #### [facility] [address] [place] [address] Dr. Eliecer Salasosinophils/100 WBC (Bld)4.0 %Normal0.9-7.0[facility] Comment on above:Performed By: #### [email or web address] #### [facility] [address] [place] [address] Dr. Eliecer Salasrythrocyte distribution width (RBC) [Ratio]19.6 %Critically high 11.0-15.0The [facility] HospitalComment on above:Performed By: #### [email or web address] #### [facility] [address] [place] [address] Dr. Eliecer DasHematocrit (Bld) [Volume fraction]34.4 %Critically low36.0-48.0 The [facility] HospitalComment on above:Performed By: #### [email or web address] #### [facility] [address] [place] [address] Dr. Eliecer DasHemoglobin (Bld) [Mass/Vol]12.6 g/aFCdbsmc99.0-16.0The [facility] HospitalComment on above:Performed By: #### [email or web address] #### [facility] [address] [place] [address] Dr. Eliecer Swanson #0.07 10e3/ulCritically high0.00-0.03The [facility] Comment on above:Performed By: #### [email or web address] #### [facility] [address] [place] [address] Dr. Eliecer Swanson %1.1 %Critically high0.0-0.5The [facility] HospitalComment on above:Performed By: #### [email or web address] #### [facility] [address] [place] [address] Dr. Eliecer JonesMPH #2.0 103/ulNormal1.2-3.8The [facility] HospitalComment on above:Performed By: #### [email or web address] #### [facility] [address] [place] [address] Dr. Eliecer Jonesmphocytes/100 WBC (Bld)31.4 %Exmkjn17.5-60.0The [facility] HospitalComment on above:Performed By: #### [email or web address] #### [facility] [address] [place] [address] Dr. Eliecer LukeUAL DIFF REQNONormalThe [facility] HospitalComment on above: Performed By: #### [email or web address] #### [facility] [address] [place] [address] Dr. Eliecer Leonardo (RBC) [Entitic mass]38.0 pgCritically high26.7-34.0The [facility] HospitalComment on above:Performed By: #### [email or web address] #### [facility] [address] [place] [address] Dr. Eliecer LeonardoHC (RBC) [Mass/Vol]36.6 g/dLCritically high29.9-35.2The [facility] HospitalComment on above:Performed By: #### [email or web address] #### [facility] [address] [place] [address] Dr. Eliecer LeonardoV (RBC) [Entitic vol]103.6 fLCritically high81.0-99.0The [facility] HospitalComment on above:Performed By: #### [email or web address] #### [facility] [address] [place] [address] Dr. Eliecer Salas #0.8 103/ulNormal0.3-0.8The [facility] HospitalComment on above:Performed By: #### [email or web address] #### [facility] [address] [place] [address] Dr. Eliecer Stuartocytes/100 WBC (Bld)12.5 %Critically high1.7-12.0The [facility] HospitalComment on above:Performed By: #### [email or web address] #### [facility] [address] [place] [address] Dr. Eliecer Rogers #3.2 103/ulNormal1.4-6.5The [facility] HospitalComment on above:Performed By: #### [email or web address] #### [facility] [address] [place] [address] Dr. Eliecer Mckeonutrophils/100 WBC (Bld)49.6 %Pflvwb50.0-75.0The [facility] HospitalComment on above:Performed By: #### [email or web address] #### [facility] [address] [place] [address] Dr. Eliecer Shooklet mean volume (Bld) [Entitic vol]9.5 fLNormal9.5-13.5The [facility] HospitalComment on above:Performed By: #### [email or web address] #### [facility] [address] [place] [address] Dr. Eliecer DasPLT242 103/swOousbp245-107Sgg [facility] HospitalComment on above: Performed By: #### [email or web address] #### [facility] [address] [place] [address] Dr. Eliecer DasRBC3.32 106/ulCritically low4.20-5.40The [facility] HospitalComment on above:Performed By: #### [email or web address] #### [facility] [address] [place] [address] Dr. Eliecer DasWBC6.5 103/ulNormal4.0-11.0The [facility] HospitalComment on above: Performed By: #### [email or web address] #### [facility] [address] [place] [address] Dr. Eliecer DasPOINT [facility] GLUCOSEon 76-54-0685Hcyfnfx [Mass/Vol]127 mg/dL Critically olki41-180Csa [facility] HospitalComment on above:Performed By: #### URCX #### [facility] [address] [place] [address] Dr. Eliecer DasGlucose [Mass/Vol]157 mg/dLCritically mvpt82-102Eoc [facility] HospitalComment on above:Performed By: #### POCGLUC #### [facility] [address] [place] [address] Dr. Eliecer DasGlucose [Mass/Vol]122 mg/dLCritically akls16-439Qbl [facility] HospitalComment on above:Performed By: #### CVDTBH #### [facility] [address] [place] [address] Dr. Eliecer DasGlucose [Mass/Vol]148 mg/dLCritically tadi07-642Jws [facility] HospitalComment on above:Performed By: #### POCGLUC #### [facility] [address] [place] [address] Dr. Eliecer DasPROF 14(COMP METB)on 07-34-6105Ktehdqn [Mass/Vol]2.2 g/dL Critically low3.4-5.0The [facility] HospitalComment on above:Performed By: #### CVDTBH #### [facility] [address] [place] [address] Dr. Eliecer DasAlbumin/Globulin [Mass ratio]0.6 {ratio}NormalThe [facility] HospitalComment on above:Performed By: #### CVDTBH #### [facility] [address] [place] [address] Dr. Eliecer AndrewsP [Catalytic activity/Vol]75 U/PMhpoaw59-888Iku [facility] HospitalComment on above:Performed By: #### CVDTBH #### [facility] [address] [place] [address] Dr. Eliecer AndrewsT [Catalytic activity/Vol]28 U/UXersgz38-71Lgc [facility] HospitalComment on above:Performed By: #### CVDTBH #### [facility] [address] [place] [address] Dr. Eliecer Elias gap [Moles/Vol]10.9 mmol/LNormalThe [facility] Comment on above:Performed By: #### CVDTBH #### [facility] [address] [place] [address] Dr. Eliecer DasAST [Catalytic activity/Vol]42 U/LCritically boup47-88Hyp [facility] HospitalComment on above:Performed By: #### CVDTBH #### [facility] [address] [place] [address] Dr. Eliecer DasBilirubin [Mass/Vol]1.1 mg/dLCritically high0.2-1.0The [facility] HospitalComment on above:Performed By: #### CVDTBH #### [facility] [address] [address] [address] Eliecer DasCalcium [Mass/Vol]8.9 mg/dLNormal8.5-10.1The [facility] Comment on above:Performed By: #### CVDTBH #### [facility] [address] [place] [address] Dr. Eliecer DasChloride [Moles/Vol]103 mmol/RJiquuy68-078Wnw [facility] Comment on above:Performed By: #### CVDTBH #### [facility] [address] [place] [address] Dr. Eliecer DasCO2 [Moles/Vol]30.2 mmol/KCgwygz20.0-32.0The [facility] Comment on above:Performed By: #### CVDTBH #### [facility] [address] [place] [address] Dr. Eliecer DasCreatinine [Mass/Vol]1.04 mg/dLCritically high0.55-1.02The [facility] HospitalComment on above:Performed By: #### CVDTBH #### [facility] [address] [place] [address] Dr. Gonzáles ChangEGFR-AF [place] CITIZ[place]>60Normal>=60The [facility] HospitalComment on above:Performed By: #### CVDTBH #### [facility] [address] [place] [address] Dr. Eliecer SalasGFR-NON AF TJDBKFIP21 mL/min/1.90g0Dmyhywcosl low>=60The [facility] HospitalComment on above:Performed By: #### CVDTBH #### [facility] [address] [place] [address] Dr. Eliecer DasGlobulin (S) [Mass/Vol]4.0 g/dLNormalThe [facility] HospitalComment on above:Performed By: #### CVDTBH #### [facility] [address] [place] [address] Dr. Eliecer DasGlucose [Mass/Vol]149 mg/dLCritically ahzm24-424Fiu [facility] HospitalComment on above:Performed By: #### CVDTB #### [facility] [address] [address] [address] Eliecer DasPotassium [Moles/Vol]4.1 mmol/LNormal3.5-5.1The [facility] Comment on above:Performed By: #### CVDTBH #### [facility] [address] [place] [address] Dr. Eliecer DasProtein [Mass/Vol]6.2 g/dLCritically low6.4-8.2The [facility] HospitalComment on above:Performed By: #### CVDTBH #### [facility] [address] [place] [address] Dr. Eliecer Costadium [Moles/Vol]140 mmol/GRkxokb504-788Bof [facility] Comment on above:Performed By: #### CVDTBH #### [facility] [address] [place] [address] Dr. Eliecer DasUrea nitrogen [Mass/Vol]17.0 mg/dLNormal7.0-18.0The [facility] HospitalComment on above:Performed By: #### CVDTBH #### [facility] [address] [place] [address] Dr. Eliecer Juan nitrogen/Creatinine [Mass ratio]16.3 mg/mgNormalThe [facility] HospitalComment on above:Performed By: #### CVDTBH #### [facility] [address] [place] [address] Dr. Eliecer De La Vega AUTO DIFFon 16-32-9387PSUS #0.1 103/ulNormal0.0-0.1[facility] HospitalComment on above:Performed By: #### [email or web address] #### [facility] [address] [place] [address] Dr. Eliecer DasBasophils/100 WBC (Bld)1.0 %Normal0.2-2.0The [facility] Comment on above:Performed By: #### [email or web address] #### [facility] [address] [place] [address] Dr. Eliecer Farias #0.2 103/ulNormal0.0-0.7The [facility] HospitalComment on above: Performed By: #### [email or web address] #### [facility] [address] [place] [address] Dr. Eliecer Salasosinophils/100 WBC (Bld)3.8 %Normal0.9-7.0The [facility] Comment on above:Performed By: #### [email or web address] #### [facility] [address] [place] [address] Dr. Eliecer Salasrythrocyte distribution width (RBC) [Ratio]16.4 %Critically high 11.0-15.0The [facility] HospitalComment on above:Performed By: #### [email or web address] #### [facility] [address] [place] [address] Dr. Eliecer DasHematocrit (Bld) [Volume fraction]35.9 %Critically low36.0-48.0 The [facility] HospitalComment on above:Performed By: #### [email or web address] #### [facility] [address] [place] [address] Dr. Eliecer DasHemoglobin (Bld) [Mass/Vol]12.3 g/nXScrvnx47.0-16.0The [facility] HospitalComment on above:Performed By: #### [email or web address] #### [facility] [address] [place] [address] Dr. Eliecer Swanson #0.04 10e3/ulCritically high0.00-0.03The [facility] Comment on above:Performed By: #### [email or web address] #### [facility] [address] [place] [address] Dr. Eliecer Swanson %0.7 %Critically high0.0-0.5The [facility] HospitalComment on above:Performed By: #### [email or web address] #### [facility] [address] [place] [address] Dr. Eliecer Mccann #2.1 103/ulNormal1.2-3.8The [facility] HospitalComment on above:Performed By: #### [email or web address] #### [facility] [address] [place] [address] Dr. Eliecer Jonesmphocytes/100 WBC (Bld)35.1 %Nktmde59.5-60.0The [facility] HospitalComment on above:Performed By: #### [email or web address] #### [facility] [address] [place] [address] Dr. Eliecer Benson DIFF REQNONormalThe [facility] HospitalComment on above: Performed By: #### [email or web address] #### [facility] [address] [place] [address] Dr. Eliecer Leonardo (RBC) [Entitic mass]34.5 pgCritically high26.7-34.0The [facility] HospitalComment on above:Performed By: #### [email or web address] #### [facility] [address] [place] [address] Dr. Eliecer Leonardo (RBC) [Mass/Vol]34.3 g/dZYzjldd73.9-35.2The [facility] HospitalComment on above:Performed By: #### [email or web address] #### [facility] [address] [place] [address] Dr. Eliecer Leonardo (RBC) [Entitic vol]100.6 fLCritically high81.0-99.0The [facility] HospitalComment on above:Performed By: #### [email or web address] #### [facility] [address] [place] [address] Dr. Eliecer Salas #0.6 103/ulNormal0.3-0.8The [facility] HospitalComment on above:Performed By: #### [email or web address] #### [facility] [address] [place] [address] Dr. Eliecer Stuartocytes/100 WBC (Bld)10.4 %Normal1.7-12.0The [facility] Comment on above:Performed By: #### [email or web address] #### [facility] [address] [place] [address] Dr. Eliecer Rogers #2.9 103/ulNormal1.4-6.5The Tim HospitalComment on above:Performed By: #### [email or web address] #### [facility] [address] [place] [address] Dr. Eliecer Mckeonutrophils/100 WBC (Bld)49.0 %Kmxvcg60.0-75.0The [facility] HospitalComment on above:Performed By: #### [email or web address] #### [facility] [address] [place] [address] Dr. Eliecer DasPlatelet mean volume (Bld) [Entitic vol]9.5 fLNormal9.5-13.5The [facility] HospitalComment on above:Performed By: #### [email or web address] #### [facility] [address] [place] [address] Dr. Eliecer DasPLT260 103/esTarvls053-004Fgc [facility] HospitalComment on above: Performed By: #### [email or web address] #### [facility] [address] [place] [address] Dr. Eliecer DasRBC3.57 106/ulCritically low4.20-5.40The [facility] HospitalComment on above:Performed By: #### [email or web address] #### [facility] [address] [place] [address] Dr. Eliecer DasWBC6.0 103/ulNormal4.0-11.0The [facility]Com[facility] on above: Performed By: #### [email or web address] #### [facility] [address] [place] [address] Dr. Eliecer DasPOINT OF CARE GLUCOSEon [id number] [Mass/Vol]217 mg/dL Critically dceb94-985Wfd [facility] HospitalComment on above:Performed By: #### [email or web address] #### [facility] [address] [place] [address] Dr. Eliecer DasGlucose [Mass/Vol]149 mg/dLCritically pytq98-612Uyj [facility] HospitalComment on above:Performed By: #### POCGLUC #### [facility] [address] [place] [address] Dr. Eliecer DasGlucose [Mass/Vol]126 mg/dLCritically goav18-048Zzr [facility] HospitalComment on above:Performed By: #### POCGLUC #### [facility] [address] [place] [address] Dr. Eliecer Maldonado 14(COMP METB)on [id number] [Mass/Vol]2.2 g/dL Critically low3.4-5.0The [facility] HospitalComment on above:Performed By: #### [email or web address] #### [facility] [address] [place] [address] Dr. Eliecer DasAlbumin/Globulin [Mass ratio]0.6 {ratio}NormalThe [facility] HospitalComment on above:Performed By: #### [email or web address] #### [facility] [address] [place] [address] Dr. Eliecer Mallory [Catalytic activity/Vol]71 U/BMyzopr53-082Prm [facility] HospitalComment on above:Performed By: #### [email or web address] #### [facility] [address] [place] [address] Dr. Eliecer Conley [Catalytic activity/Vol]25 U/YUqdmxk25-39Mee [facility] HospitalComment on above:Performed By: #### [email or web address] #### [facility] [address] [place] [address] Dr. Eliecer Elias gap [Moles/Vol]8.1 mmol/LNormalThe [facility] HospitalComment on above:Performed By: #### [email or web address] #### [facility] [address] [place] [address] Dr. Eliecer DasAST [Catalytic activity/Vol]40 U/LCritically wsrd86-68Tjk [facility] HospitalComment on above:Performed By: #### [email or web address] #### [facility] [address] [place] [address] Dr. Eliecer DasBilirubin [Mass/Vol]1.3 mg/dLCritically high0.2-1.0The [facility] HospitalComment on above:Performed By: #### [email or web address] #### [facility] [address] [place] [address] Dr. Eliecer DasCalcium [Mass/Vol]8.8 mg/dLNormal8.5-10.1The [facility] Comment on above:Performed By: #### [email or web address] #### [facility] [address] [address] [address] Eliecer DasChloride [Moles/Vol]106 mmol/IBberyy21-837Unv [facility] Comment on above:Performed By: #### [email or web address] #### [facility] [address] [address] [address] Eliecer DasCO2 [Moles/Vol]29.7 mmol/AYkiyim42.0-32.0The [facility] Comment on above:Performed By: #### [email or web address] #### [facility] [address] [place] [address] Dr. Eliecer DasCreatinine [Mass/Vol]1.00 mg/dLNormal0.55-1.02The [facility] HospitalComment on above:Performed By: #### [email or web address] #### [facility] [address] [place] [address] Dr. Gonzáles ChangEGFR-AF [place]>60Normal>=60The [facility] HospitalComment on above:Performed By: #### [email or web address] #### [facility] [address] [place] [address] Dr. Eliecer SalasGFR-NON AF QTEEOUHJ19 mL/min/1.93v7Maamytovfc low>=60The [facility] HospitalComment on above:Performed By: #### [email or web address] #### [facility] [address] [place] [address] Dr. Eliecer DasGlobulin (S) [Mass/Vol]3.9 g/dLNormalThe [facility] HospitalComment on above:Performed By: #### [email or web address] #### [facility] [address] [place] [address] Dr. Eliecer DasGlucose [Mass/Vol]139 mg/dLCritically xxau22-686Rxr [facility] HospitalComment on above:Performed By: #### [email or web address] #### [facility] [address] [place] [address] Dr. Eliecer DasPotassium [Moles/Vol]3.8 mmol/LNormal3.5-5.1The [facility] Comment on above:Performed By: #### [email or web address] #### [facility] [address] [place] [address] Dr. Eliecer DasProtein [Mass/Vol]6.1 g/dLCritically low6.4-8.2The [facility] HospitalComment on above:Performed By: #### [email or web address] #### [facility] [address] [place] [address] Dr. Eliecer DasSodium [Moles/Vol]140 mmol/ZEhgyqv280-082Aev [facility] Comment on above:Performed By: #### [email or web address] #### [facility] [address] [place] [address] Dr. Eliecer DasUrea nitrogen [Mass/Vol]14.0 mg/dLNormal7.0-18.0The [facility] HospitalComment on above:Performed By: #### [email or web address] #### [facility] [address] [place] [address] Dr. Eliecer Juan nitrogen/Creatinine [Mass ratio]14.0 mg/mgNormalThMercy Health Clermont HospitalComment on above:Performed By: #### [email or web address] #### [facility] [address] [place] [address] Dr. Eliecer De La Vega AUTO DIFFon [id number] #0.1 103/ulNormal0.0-0.1The [facility] HospitalComment on above:Performed By: #### [email or web address] #### [facility] [address] [place] [address] Dr. Eliecer DasBaeliasphils/100 WBC (Bld)1.1 %Normal0.2-2.0The [facility] Comment on above:Performed By: #### [email or web address] #### [facility] [address] [place] [address] Dr. Gonzáles ChangEO #0.2 103/ulNormal0.0-0.7The Tim HospitalComment on above: Performed By: #### [email or web address] #### [facility] [address] [place] [address] Dr. Eliecer Salasosinophils/100 WBC (Bld)4.4 %Normal0.9-7.0The [facility] Comment on above:Performed By: #### [email or web address] #### [facility] [address] [place] [address] Dr. Eliecer Salasrythrocyte distribution width (RBC) [Ratio]17.3 %Critically high 11.0-15.0The [facility] HospitalComment on above:Performed By: #### [email or web address] #### [facility] [address] [place] [address] Dr. Eliecer DasHematocrit (Bld) [Volume fraction]35.3 %Critically low36.0-48.0 The [facility] HospitalComment on above:Performed By: #### [email or web address] #### [facility] [address] [place] [address] Dr. Eliecer DasHemoglobin (Bld) [Mass/Vol]12.6 g/yQPnpojl92.0-16.0The [facility] HospitalComment on above:Performed By: #### [email or web address] #### [facility] [address] [place] [address] Dr. Eliecer Swanson #0.03 10e3/ulNormal0.00-0.03The [facility] HospitalComment on above:Performed By: #### [email or web address] #### [facility] [address] [place] [address] Dr. Eliecer Swanson %0.6 %Critically high0.0-0.5The [facility] HospitalComment on above:Performed By: #### [email or web address] #### [facility] [address] [place] [address] Dr. Eliecer JonesMPH #2.0 103/ulNormal1.2-3.8The [facility] HospitalComment on above:Performed By: #### [email or web address] #### [facility] [address] [place] [address] Dr. Eliecer Jonesmphocytes/100 WBC (Bld)38.4 %Hnhrbl05.5-60.0The [facility] HospitalComment on above:Performed By: #### [email or web address] #### [facility] [address] [place] [address] Dr. Eliecer LukeUAL DIFF REQNONormalThe [facility] HospitalComment on above: Performed By: #### [email or web address] #### [facility] [address] [place] [address] Dr. Eliecer Leonardo (RBC) [Entitic mass]36.0 pgCritically high26.7-34.0The [facility] HospitalComment on above:Performed By: #### [email or web address] #### [facility] [address] [place] [address] Dr. Eliecer Leonardo (RBC) [Mass/Vol]35.7 g/dLCritically high29.9-35.2The [facility] HospitalComment on above:Performed By: #### [email or web address] #### [facility] [address] [place] [address] Dr. Eliecer Leonardo (RBC) [Entitic vol]100.9 fLCritically high81.0-99.0The [facility] HospitalComment on above:Performed By: #### [email or web address] #### [facility] [address] [place] [address] Dr. Eliecer Salas #0.6 103/ulNormal0.3-0.8The [facility] HospitalComment on above:Performed By: #### [email or web address] #### [facility] [address] [place] [address] Dr. Eliecer Stuartocytes/100 WBC (Bld)11.1 %Normal1.7-12.0The [facility] Comment on above:Performed By: #### [email or web address] #### [facility] [address] [place] [address] Dr. Eliecer Rogers #2.3 103/ulNormal1.4-6.5The [facility] HospitalComment on above:Performed By: #### [email or web address] #### [facility] [address] [place] [address] Dr. Eliecer Mckeonutrophils/100 WBC (Bld)44.4 %Excldq89.0-75.0[facility] on above:Performed By: #### [email or web address] #### [facility] [address] [place] [address] Dr. Eliecer Shooklet mean volume (Bld) [Entitic vol]9.5 fLNormal9.5-13.5The [facility] HospitalComment on above:Performed By: #### [email or web address] #### [facility] [address] [place] [address] Dr. Eliecer DasPLT264 103/xiHdgabu194-595Tbb [facility]Com[facility] on above: Performed By: #### [email or web address] #### [facility] [address] [place] [address] Dr. Eliecer DasRBC3.50 106/ulCritically low4.20-5.40The [facility] HospitalComment on above:Performed By: #### [email or web address] #### [facility] [address] [place] [address] Dr. Eliecer DasWBC5.2 103/ulNormal4.0-11.0The [facility] on above: Performed By: #### [email or web address] #### [facility] [address] [place] [address] Dr. Eliecer DasPOINT OF [facility] GLUCOSEon [id number] [Mass/Vol]189 mg/dL Critically fcwb96-610Xnc [facility] HospitalComment on above:Performed By: #### POCGLUC #### [facility] [address] [place] [address] Dr. Eliecer DasGlucose [Mass/Vol]69 mg/dLCritically kgr41-400Mvy [facility] HospitalCom[facility] on above:Performed By: #### [email or web address] #### [facility] [address] [place] [address] Dr. Eliecer DasGlucose [Mass/Vol]220 mg/dLCritically xoxw88-237Pak [facility] HospitalComment on above:Performed By: #### URCX #### [facility] [address] [address] [address] Eliecer Maldonado 14(COMP METB)on [id number] [Mass/Vol]2.3 g/dL Critically low3.4-5.0The [facility] HospitalComment on above:Performed By: #### POCGLUC #### [facility] [address] [place] [address] Dr. Eliecer DasAlbumin/Globulin [Mass ratio]0.6 {ratio}NormalThe [facility] HospitalComment on above:Performed By: #### POCGLUC #### [facility] [address] [place] [address] Dr. Eliecer AndrewsP [Catalytic activity/Vol]77 U/GJbjcsw60-289Scn [facility] HospitalComment on above:Performed By: #### POCGLUC #### [facility] [address] [place] [address] Dr. Eliecer Conley [Catalytic activity/Vol]31 U/LGsrmwm98-17Qtp [facility] HospitalComment on above:Performed By: #### POCGLUC #### [facility] [address] [place] [address] Dr. Eliecer Elias gap [Moles/Vol]8.6 mmol/LNormalThe [facility] HospitalComment on above:Performed By: #### POCGLUC #### [facility] [address] [place] [address] Dr. Eliecer DasAST [Catalytic activity/Vol]42 U/LCritically lusd07-92Mtl [facility] HospitalComment on above:Performed By: #### POCGLUC #### [facility] [address] [place] [address] Dr. Eliecer DasBilirubin [Mass/Vol]1.8 mg/dLCritically high0.2-1.0The [facility] HospitalComment on above:Performed By: #### POCGLUC #### [facility] [address] [place] [address] Dr. Eliecer DasCalcium [Mass/Vol]8.7 mg/dLNormal8.5-10.1The [facility] Comment on above:Performed By: #### POCGLUC #### [facility] [address] [address] [address] Eliecer DasChloride [Moles/Vol]109 mmol/LCritically exvf09-774MjxHocking Valley Community HospitalComment on above:Performed By: #### POCGLUC #### [facility] [address] [address] [address] Eliecer DasCO2 [Moles/Vol]29.3 mmol/RHpgfts98.0-32.0The [facility] Comment on above:Performed By: #### POCGLUC #### [facility] [address] [place] [address] Dr. Eliecer DasCreatinine [Mass/Vol]0.86 mg/dLNormal0.55-1.02The [facility] HospitalComment on above:Performed By: #### POCGLUC #### [facility] [address] [place] [address] Dr. Eliecer SalasGFR-AF [place]>60Normal>=60The [facility] HospitalComment on above:Performed By: #### POCGLUC #### [facility] [address] [place] [address] Dr. Eliecer SalasGFR-NON AF [place]>60Normal>=60The [facility] HospitalComment on above:Performed By: #### POCGLUC #### [facility] [address] [address] [address] Eliecer DasGlobulin (S) [Mass/Vol]3.9 g/dLNormalThe [facility] HospitalComment on above:Performed By: #### POCGLUC #### [facility] [address] [place] [address] Dr. Eliecer DasGlucose [Mass/Vol]104 mg/ePYzehkj99-677Mmn [facility] Comment on above:Performed By: #### POCGLUC #### [facility] [address] [address] [address] Eliecer DasPotassium [Moles/Vol]3.9 mmol/LNormal3.5-5.1The [facility] Comment on above:Performed By: #### POCGLUC #### [facility] [address] [place] [address] Dr. Eliecer DasProtein [Mass/Vol]6.2 g/dLCritically low6.4-8.2The [facility] HospitalComment on above:Performed By: #### POCGLUC #### [facility] [address] [place] [address] Dr. Eliecer Ferreraum [Moles/Vol]143 mmol/DLbljys155-237Vnd [facility] Comment on above:Performed By: #### POCGLUC #### [facility] [address] [place] [address] Dr. Eliecer Juan nitrogen [Mass/Vol]12.0 mg/dLNormal7.0-18.0The [facility] HospitalComment on above:Performed By: #### POCGLUC #### [facility] [address] [place] [address] Dr. Eliecer Juan nitrogen/Creatinine [Mass ratio]14.0 mg/mgNormalThe [facility] HospitalComment on above:Performed By: #### POCGLUC #### [facility] [address] [place] [address] Dr. Eliecer Stafford [id number] peptide B (Bld) [Mass/Vol]66.0 pg/mL Normal<=1,800.0The [facility] HospitalComment on above:Performed By: #### CVDTBH #### [facility] [address] [place] [address] Dr. Eliecer Schultz MARQUIS ADMITon [id number] [Catalytic activity/Vol]21 U/L Critically jbw40-290Vgj [facility] HospitalComment on above:Performed By: #### CVDTBH #### [facility] [address] [place] [address] Dr. Eliecer Ham.MB [Mass/Vol]ng/mLNormal<=3.60The [facility] HospitalComment on above:Performed By: #### CVDTBH #### [facility] [address] [place] [address] Dr. Eliecer DasHSTROP7.1 pg/mLNormal4.0-51.3The [facility] HospitalComment on above:Result Comment: CUT-OFF POINTS HAVE BEEN ESTABLISHED BASED ON THE FOURTH UNIVERSAL DEFINITIONS OF MYOCARDIAL INFARCTION. THE UPPER REFERENCE LIMIT (URL) OF TROPONIN, DEFINED THE 99TH PERCENTILE OF cTnI DISTRIBUTION IN A REFERENCE POPULATION, HAS BEEN CONFIRMED THE DECISION THRESHOLD FOR OR DIAGNOSIS.Performed By: #### CVDTBH #### [facility] [address] [place] [address] Dr. Eliecer DasMYO23 ng/mLNormal9-82The [facility] HospitalComment on above: Performed By: #### CVDTBH #### [facility] [address] [place] [address] Dr. Eliecer De La Vega AUTO DIFFon [id number] #0.1 103/ulNormal0.0-0.1The [facility] HospitalComment on above:Performed By: #### [email or web address] #### [facility] [address] [place] [address] Dr. Eliecer DasBasophils/100 WBC (Bld)1.2 %Normal0.2-2.0[facility] Comment on above:Performed By: #### [email or web address] #### [facility] [address] [place] [address] Dr. Eliecer Farias #0.2 103/ulNormal0.0-0.7The [facility] HospitalComment on above: Performed By: #### [email or web address] #### [facility] [address] [place] [address] Dr. Eliecer Salasosinophils/100 WBC (Bld)3.4 %Normal0.9-7.0The [facility] Comment on above:Performed By: #### [email or web address] #### [facility] [address] [place] [address] Dr. Eliecer Salasrythrocyte distribution width (RBC) [Ratio]17.3 %Critically high 11.0-15.0The [facility] HospitalComment on above:Performed By: #### [email or web address] #### [facility] [address] [place] [address] Dr. Eliecer Bryanatocrit (Bld) [Volume fraction]39.8 %Gbbmrl98.0-48.0The [facility] HospitalComment on above:Performed By: #### [email or web address] #### [facility] [address] [place] [address] Dr. Eliecer DasHemoglobin (Bld) [Mass/Vol]13.8 g/sWXczhwq47.0-16.0The [facility] HospitalComment on above:Performed By: #### [email or web address] #### [facility] [address] [place] [address] Dr. Eliecer Swanson #0.04 10e3/ulCritically high0.00-0.03The [facility] Comment on above:Performed By: #### [email or web address] #### [facility] [address] [place] [address] Dr. Eliecer Swanson %0.7 %Critically high0.0-0.5The [facility] HospitalComment on above:Performed By: #### [email or web address] #### [facility] [address] [place] [address] Dr. Eliecer Mccann #1.9 103/ulNormal1.2-3.8The [facility] HospitalComment on above:Performed By: #### [email or web address] #### [facility] [address] [place] [address] Dr. Eliecer Hardinghocytes/100 WBC (Bld)33.7 %Dbhfyg55.5-60.0The [facility] HospitalComment on above:Performed By: #### BLDCX2 #### [facility] [address] [place] [address] Dr. Eliecer LukeUAL DIFF REQNONormalThe [facility] HospitalComment on above: Performed By: #### BLDCX2 #### [facility] [address] [place] [address] Dr. Eliecer Rodriguez (RBC) [Entitic mass]34.7 pgCritically high26.7-34.0The [facility] HospitalComment on above:Performed By: #### BLDCX2 #### [facility] [address] [place] [address] Dr. Eliecer Leonardo (RBC) [Mass/Vol]34.7 g/uKAqwlqd02.9-35.2The [facility] HospitalComment on above:Performed By: #### BLDCX2 #### [facility] [address] [place] [address] Dr. Eliecer Leonardo (RBC) [Entitic vol]100.0 fLCritically high81.0-99.0The [facility] HospitalComment on above:Performed By: #### BLDCX2 #### [facility] [address] [place] [address] Dr. Eliecer Salas #0.5 103/ulNormal0.3-0.8The [facility] HospitalComment on above:Performed By: #### BLDCX2 #### [facility] [address] [place] [address] Dr. Eliecer Stuartocytes/100 WBC (Bld)8.3 %Normal1.7-12.0The [facility] Comment on above:Performed By: #### BLDCX2 #### [facility] [address] [place] [address] Dr. Eliecer Rogers #3.0 103/ulNormal1.4-6.5The [facility] HospitalComment on above:Performed By: #### BLDCX2 #### [facility] [address] [place] [address] Dr. Eliecer Mckeonutrophils/100 WBC (Bld)52.7 %Tbrjpi77.0-75.0The [facility] HospitalComment on above:Performed By: #### BLDCX2 #### [facility] [address] [place] [address] Dr. Eliecer Shooklet mean volume (Bld) [Entitic vol]9.3 fLCritically low 9.5-13.5The [facility] HospitalComment on above:Performed By: #### BLDCX2 #### [facility] [address] [place] [address] Dr. Eliecer DasPLT293 103/gqTzfeol986-085Lhc [facility] HospitalComment on above: Performed By: #### BLDCX2 #### [facility] [address] [place] [address] Dr. Eliecer DasRBC3.98 106/ulCritically low4.20-5.40The [facility] HospitalComment on above:Performed By: #### BLDCX2 #### [facility] [address] [place] [address] Dr. Eliecer DasWBC5.7 103/ulNormal4.0-11.0The [facility] HospitalComment on above: Performed By: #### BLDCX2 #### [facility] [address] [place] [address] Dr. Eliecer Devlin BLOODon 74-57-3963Iccxyzasuxy examination of blood, cultureCulture Observations: NO GROWTH AT 5 DAYS.NormalThe [facility] HospitalComment on above:Performed By: #### BLDCX2 #### [facility] [address] [place] [address] Dr. Eliecer DasMicroscopic examination of blood, cultureCulture Observations: NO GROWTH AT 5 DAYS.NormalThe [facility] HospitalComment on above:Performed By: #### BLDCX1 #### [facility] [address] [place] [address] Dr. Eliecer Devlin URINEon 30-02-7961DOCVMBI URINECulture Observations: NO GROWTH.NormalThe [facility] HospitalComment on above:Performed By: #### URCX #### [facility] [address] [place] [address] Dr. Eliecer Villanueva-19 PCR ([facility])on 30-47-2856OGLS-CoV-2 (COVID-19) RNA PELON+probe Ql (Unsp spec)Not detectedNormalNOT DETECTEDThe [facility] Comment on above:Performed By: #### POCGLUC #### [facility] [address] [place] [address] Dr. Eliecer Hall URINE PROFILEon 73-40-1921Fcmwlheeg Ql (U)NegativeNormal NEGATIVEHocking Valley Community HospitalComment on above:Performed By: #### [email or web address] #### [facility] [address] [place] [address] Dr. Eliecer DasClarity (U)CLEARNormalCLEARHocking Valley Community HospitalComment on above: Performed By: #### BLDCX2 #### [facility] [address] [address] [address] Eliecer Pittlor (U)YELLOWNormalYELLOWHocking Valley Community HospitalComment on above: Performed By: #### BLDCX2 #### [facility] [address] [place] [address] Dr. Eliecer Queen micrscopic examination will be performed if indicated. NormalThe [facility] HospitalComment on above:Performed By: #### BLDCX2 #### [facility] [address] [place] [address] Dr. Eliecer DasGlucose Ql (U)NegativeNormalNEGATIVEHocking Valley Community HospitalComment on above:Performed By: #### BLDCX2 #### [facility] [address] [place] [address] Dr. Eliecer DasHemoglobin Ql (U)LARGEAbnormalNEGATIVESumma Health Barberton Campus on above:Performed By: #### BLDCX2 #### [facility] [address] [place] [address] Dr. Eliecer DasKetones Ql (U)NegativeNormalNEGATIVEHocking Valley Community HospitalComment on above:Performed By: #### BLDCX2 #### [facility] [address] [place] [address] Dr. Eliecer DasLEUKOCYTESTRACEAbnormalNEGATIVEHocking Valley Community HospitalComascension providence hospital on above:Performed By: #### BLDCX2 #### [facility] [address] [place] [address] Dr. Eliecer DasNitrite Ql (U)NegativeNormalNEGATIVEHocking Valley Community HospitalComment on above:Performed By: #### BLDCX2 #### [facility] [address] [address] [address] Eliecer DaspH (U)6.5 [pH]Normal5-9The [facility] HospitalComment on above: Performed By: #### BLDCX2 #### [facility] [address] [address] [address] Eliecer DasSPEC GRAVITY1.864Shsnjc4.005-<=1.025The [facility] HospitalComment on above:Performed By: #### BLDCX2 #### [facility] [address] [address] [address] Eliecer Moss PROTEINNegativeNormalNEGATIVE/ TRACEThe [facility] Comment on above:Performed By: #### BLDCX2 #### [facility] [address] [place] [address] Dr. Eliecer Crowe MICRO INDINDICATEDNormalThe [facility] HospitalComment on above: Performed By: #### BLDCX2 #### [facility] [address] [address] [address] Eliecer Pikebilinogen Qn (U)2.0 {Narinder'U}/dLAbnormal0.2 - 1.0The [facility] HospitalComment on above:Performed By: #### BLDCX2 #### [facility] [address] [place] [address] Dr. Eliecer DasPOINT OF CARE GLUCOSEon 20-13-6065Ipffoob [Mass/Vol]153 mg/dL Critically ihxy24-782Zuu [facility] HospitalComment on above:Performed By: #### BLDCX2 #### [facility] [address] [place] [address] Dr. Eliecer DasGlucose [Mass/Vol]176 mg/dLCritically nwgv14-383GhcHocking Valley Community HospitalComment on above:Performed By: #### BLDCX2 #### [facility] [address] [place] [address] Dr. Eliecer DasPROF 14(COMP METB)on 61-67-6941Edkgynx [Mass/Vol]2.7 g/dL Critically low3.4-5.0The [facility] Centerment on above:Performed By: #### CVDTBH #### [facility] [address] [address] [address] Eliecer DasAlbumin/Globulin [Mass ratio]0.6 {ratio}NormalThe [facility] HospitalComment on above:Performed By: #### CVDTBH #### [facility] [address] [address] [address] Eliecer Mallory [Catalytic activity/Vol]91 U/SPgqtcr14-040Jer [facility] HospitalComment on above:Performed By: #### CVDTBH #### [facility] [address] [address] [address] Eliecer Conley [Catalytic activity/Vol]36 U/FXbcxec16-93Amx [facility] on above:Performed By: #### CVDTBH #### [facility] [address] [address] [address] Eliecer Lynchon gap [Moles/Vol]10.8 mmol/LNormalThe [facility] Comment on above:Performed By: #### CVDTBH #### [facility] [address] [address] [address] Eliecer DasAST [Catalytic activity/Vol]53 U/LCritically wbtm81-67Gnr [facility] on above:Performed By: #### CVDTBH #### [facility] [address] [address] [address] Eliecer DasBilirubin [Mass/Vol]1.3 mg/dLCritically high0.2-1.0The [facility] HospitalComment on above:Performed By: #### CVDTBH #### [facility] [address] [address] [address] Eliecer DasCalcium [Mass/Vol]9.2 mg/dLNormal8.5-10.1The [facility] Comment on above:Performed By: #### CVDTBH #### [facility] [address] [address] [address] Eliecer DasChloride [Moles/Vol]108 mmol/LCritically dvvo59-698Vca [facility] HospitalComment on above:Performed By: #### CVDTBH #### [facility] [address] [address] [address] Eliecer DasCO2 [Moles/Vol]29.4 mmol/CLootsp88.0-32.0The [facility] Comment on above:Performed By: #### CVDTBH #### [facility] [address] [address] [address] Eliecer DasCreatinine [Mass/Vol]0.92 mg/dLNormal0.55-1.02The [facility] HospitalComment on above:Performed By: #### CVDTBH #### [facility] [address] [place] [address] Dr. Eliecer SalasGFR-AF [place]IZ[place]>60Normal>=60The [facility] HospitalComment on above:Performed By: #### CVDTBH #### [facility] [address] [address] [address] Eliecer SalasGFR-NON AF SRIDAMZJ95 mL/min/1.48y5Lbazmfdijh low>=60The [facility] HospitalComment on above:Performed By: #### CVDTBH #### [facility] [address] [place] [address] Dr. Eliecer DasGlobulin (S) [Mass/Vol]4.5 g/dLNormalThe [facility] HospitalComment on above:Performed By: #### CVDTBH #### [facility] [address] [address] [address] Eliecer DasGlucose [Mass/Vol]120 mg/dLCritically gjzp68-408CwtHocking Valley Community HospitalComment on above:Performed By: #### CVDTBH #### [facility] [address] [address] [address] Eliecer DasPotassium [Moles/Vol]4.2 mmol/LNormal3.5-5.1The [facility] Comment on above:Performed By: #### CVDTBH #### [facility] [address] [address] [address] Eliecer DasProtein [Mass/Vol]7.2 g/dLNormal6.4-8.2[facility] Comment on above:Performed By: #### CVDTBH #### [facility] [address] [place] [address] Dr. Eliecer DasSodium [Moles/Vol]144 mmol/GCmzein822-090KxsHocking Valley Community Hospital Comment on above:Performed By: #### CVDTBH #### [facility] [address] [place] [address] Dr. Eliecer Juan nitrogen [Mass/Vol]15.0 mg/dLNormal7.0-18.0The [facility] HospitalComment on above:Performed By: #### CVDTBH #### [facility] [address] [place] [address] Dr. Eliecer Juan nitrogen/Creatinine [Mass ratio]16.3 mg/mgNoOhioHealth Pickerington Methodist HospitalComment on above:Performed By: #### CVDTBH #### [facility] [address] [place] [address] Dr. Eliecer Gann 82-97-6091OTM Coag (PPP) [Relative time]1.03 {INR} NormalHocking Valley Community HospitalComment on above:Performed By: #### [email or web address] #### [facility] [address] [place] [address] Dr. Eliecer Michel GUIDELINESSEE BELOWGrant HospitalComment on above:Result Comment: DESIRED INR: 2.0 - 3.0 CONDITIONS NOT LISTED BELOW 2.5 - 3.5 FOR PROSTHETIC HEART VALVE REPLACEMENT 2.5 - 3.5 RECURRENT THROMBOSIS Performed By: #### [email or web address] #### [facility] [address] [place] [address] Dr. Eliecer DasPT Coag (PPP) [Time]10.9 sNormal9.0-11.6The [facility] Comment on above:Performed By: #### [email or web address] #### [facility] [address] [place] [address] Dr. Eliecer Alexander 73-72-2348dJIQ Coag (Bld) [Time]26.4 bQqargh65.3-36.2The [facility] Centerment on above:Performed By: #### BLDCX1 #### [facility] [address] [place] [address] Dr. Eliecer SouzaMATIC COVID-19 ANTIGENon 16-11-2194EEG StatementSEE BELOW NormalThe [facility] on above:Result Comment: This test has not been FDA [...] declaration is terminated or authorization is revoked sooner.Performed By: #### BLDCX2 #### [facility] [address] [place] [address] Dr. Eliecer Cruz-CoV-2 (COVID-19) RNA PELON+probe Ql (Unsp spec)NegativeNormal NEGATIVEThe [facility] HospitalComment on above:Performed By: #### BLDCX2 #### [facility] [address] [place] [address] Dr. Eliecer Ontiveros MICROSCOPIC ONLYon 49-42-7374BLYYYXQERXUGPIhtwmohrMZNB SEEN [facility] HospitalComascension prov[facility] hospital on above:Performed By: #### BLDCX2 #### [facility] [address] [place] [address] Dr. Eliecer Mcgill identified Cx Nom (U)INDICATEDNormalThMercy Health Clermont HospitalComment on above:Performed By: #### BLDCX2 #### [facility] [address] [place] [address] Dr. Eliecer Clifford SEENNormalNONE SEENHocking Valley Community HospitalComment on above:Performed By: #### BLDCX2 #### [facility] [address] [address] [address] Eliecer DasCrystals LM Nom (Urine sed)NONE SEENNormalNONE SEENThe [facility] HospitalComment on above:Performed By: #### BLDCX2 #### [facility] [address] [place] [address] Dr. Gonzáles ChangEpithelial cells LM Ql (Urine sed)FEWAbnormalNONE SEEN /RAREThe [facility] HospitalComment on above:Performed By: #### BLDCX2 #### [facility] [address] [place] [address] Dr. Eliecer DasMUCOUSNONE SEENNormalNONE SEENThe [facility] HospitalComment on above:Performed By: #### BLDCX2 #### [facility] [address] [place] [address] Dr. Eliecer DasIzvgmORC10-49Tpckzzgt6-2Wvj [facility] HospitalComment on above: Performed By: #### BLDCX2 #### [facility] [address] [place] [address] Dr. Eliecer DasWBC5-10AbnormalNONE SEENThe [facility] HospitalComment on above: Performed By: #### BLDCX2 #### [facility] [address] [place] [address] Dr. Eliecer DasXR CHEST 1 Von 13-30-9307IK CHEST 1 VEXAMINATION: XR CHEST 1 V HISTORY: Asthenia COMPARISON: 10/13/2022 TECHNIQUE: [...] Electronically authenticated by: BOBBY RAMACHANDRAN Date: 2023-01-24 11:06Grant HospitalUrinalysis - AUTOMATEDon 48-12-0507Dthwbllcxf (U)CLEARNoSeatID [employer] Other Bilirubin Ql (U)NegativeSeatID [employer] Other Color (U)YELLOWNoresearch psychiatric center [employer] Other Glucose Ql (U)NegativeSeatID [employer] Other Hemoglobin Ql (U)TRACENoresearch psychiatric center [employer] Other Ketones Ql (U)NegativeHooper [employer] Other Leukocyte esterase Test strip Ql (U)NegativeSeatID [employer] Other Nitrite Ql (U)IBeiFengSeatID [employer] Other pH (U)6.5 [pH]Outline Other Protein Ql (U)IBeiFengSeatID [employer] Other Specific gravity (U) [Rel density]1.030Noresearch psychiatric center [employer] Other Urobilinogen (U) [Mass/Vol]1.0 mg/dLHooper [employer] Other Urinalysis - AUTOMATEDHooper [employer] Other Urine Cultureon 05-53-7588Fcaaptak identified Cx Nom (U)Reason for Exam Suspected urinary tract infection Urine 15,000 colonies/ml mixed bacterial skin contaminants 2 Days PERFORMED BY: [place] [address] PATHOLOGIST [employer]ARMACE[employer] SALES CARLOS CHOUDHURY M.D.[facility] HospitalComment on above: Performed By: #### CUU #### [place] [address] USAUrine culture routineOrdered By: Brendon Castelan on 50-63-0217Rbbegaou identified Cx Nom (U)2 DaysMadison Health Blood Urea Nitrogenon 96-55-9056Jkqm nitrogen [Mass/Vol]8 mg/dLNormal04-09 [facility] HealthComment on above:Order Comment: Reason for Exam Dependent edemaPerformed By: #### CREAT, BUN #### [facility] [address] [place] [address] USACreatinineon 20-02-6526Oradhtuzpl [Mass/Vol]0.77 mg/dL Normal0.60-1.20Madison HealthComment on above:Order Comment: Reason for Exam Dependent edemaPerformed By: #### CREAT, BUN #### [facility] [address] [id number] USAGFR/1.73 sq M.predicted MDRD (S/P/Bld) [Vol rate/Area] mL/min/{1.73_m2}NormalMadison HealthComment on above:Order Comment: Reason for Exam Dependent edemaResult Comment: PERFORMED BY: [place] [address] PATHOLOGIST [employer]ACE[employer] SAL[employer] CARLOS CHOUDHURY M.D.Performed By: #### CREAT, BUN #### [facility] [address] [id number] USACreatinine [Mass/volume] in Serum or PlasmaOrdered By: Brendon Castelan on 18-03-3254Ygrotxqxed [Mass/Vol]0.77 mg/dL0.60-1.20Madison HealthNo Panel InformationOrdered By: Brendon Castelan on 82-50-6654Bhprcbslf GFR (CKD-EPI)> 60.0 mL/MinMadison Health Pharmacy Creatinine Clearance (ChemN/AFTogus VA Medical CenterUrea nitrogen [Mass/volume] in Serum or PlasmaOrdered By: Brendon Castelan on 81-73-2213Zstp nitrogen [Mass/Vol]8 mg/dL7-25[facility] Urinalysis - AUTOMATEDon 19-02-8066Xjogbueotn (U)[employer] Other Bilirubin Ql (U)[employer] Other Color (U)YELLOWOutline Other Glucose Ql (U)[employer] Other Hemoglobin Ql (U)NegativeHooper [employer] Other Ketones Ql (U)NegativeHooper [employer] Other Leukocyte esterase Test strip Ql (U)TRACENoresearch psychiatric center [employer] Other Nitrite Ql (U)PositiveHooper [employer] Other pH (U)6.0 [pH]Hooper [employer] Other Protein Ql (U)NegativeHooper [employer] Other Specific gravity (U) [Rel density]>=1.030[facility] [employer] Other Urobilinogen (U) [Mass/Vol]1.0 E.UNorth [employer] Other Urinalysis - AUTOMATEDHooper [employer] Other Urine Cultureon 65-32-9136Yuhwjilb identified Cx Nom (U)ORGANISM: Escherichia coli (O:ESCCOL) [place] Count >100,000 Aerobic DALE Charge (NMIC56) SUSCEPTIBILITY [...] RESISTANT TO ALL B-LACTAM DRUGS. PERFORMED BY: [place] [address] PATHOLOGIST PHARMACEUT[employer] SALES CARLOS CHOUDHURY M.D.[facility]leness HospitalComment on above: Performed By: #### CUU #### [place] [address] USAA1C HEMOGLOBINon 28-98-8793OiH9e (Bld) [Mass fraction]6.5 %Outline Other HbA1c (Bld) [Mass fraction]on 23-73-8247H9S HEMOGLOBIN OQVestir [facility] [email or web address] Other CT chest wo conon 32-06-6400SA chest wo [facility] [place] [address] [place] [address] CT Scan Report Signed Patient: Salma Quan MR#: [id number] : 1935 Acct:[id number] Age/Sex: 87 / F ADM Date: 11/26/22 Loc: CT Room: Type: [facility] Attending Dr: MITZY Porter APRN Copies [...] study. Impression dictated by: Christiano Cameron Jr., DKellyOKelly11/26/2022 3:56 PM Dictation Location: [place] [address] Transcribed By: [facility] 11/26/22 155 Dictated By: Christiano Cameron Jr, DO 11/26/22 1554 Signed By: 11/26/22 1556NoFort Hamilton HospitalCULTURE URINEon 10-16-2022 CULTURE URINEIsolate 1 Escherichia coli >100,000 cfu/mL of ORGANISM [...] Nitrofurantoin <=16 S F Trimethoprim/Sulfamethoxazole >=320 R FNormalThe [facility] HospitalComment on above:Performed By: #### CVDTBH #### [facility] [address] [address] [address] Elieecr DasPOINT OF CARE GLUCOSEon 29-31-1684Szxpanw [Mass/Vol]269 mg/dL Critically rlib02-916AvbHocking Valley Community HospitalComment on above:Performed By: #### POCGLUC #### [facility] [address] [address] [address] Eliecer DasGlucose [Mass/Vol]100 mg/xJZokwmd47-004BmaHocking Valley Community Hospital Comment on above:Performed By: #### BLDCX1 #### [facility] [address] [address] [address] Eliecer DasPOINT OF CARE GLUCOSEon 24-61-7008Hoswbvr [Mass/Vol]147 mg/dL Critically mlxd18-103GbkHocking Valley Community HospitalComment on above:Performed By: #### URCX #### [facility] [address] [address] [address] Eliecer DasGlucose [Mass/Vol]189 mg/dLCritically gsgn93-919QfkHocking Valley Community HospitalComment on above:Performed By: #### POCGLUC #### [facility] [address] [address] [address] Eliecer DasGlucose [Mass/Vol]421 mg/dLCritically hkuh89-992DnjHocking Valley Community HospitalComment on above:Performed By: #### BLDCX2 #### [facility] [address] [place] [address] Dr. Eliecer DasGlucose [Mass/Vol]156 mg/dLCritically wwlo05-198EiwHocking Valley Community HospitalComment on above:Performed By: #### POCGLUC #### [facility] [address] [place] [address] Dr. Eliecer DasGlucose [Mass/Vol]111 mg/dLCritically atrd99-092UodHocking Valley Community HospitalComment on above:Performed By: #### BLDCX2 #### [facility] [address] [address] [address] Eliecer DasGlucose [Mass/Vol]209 mg/dLCritically otxi76-422SbpHocking Valley Community HospitalComment on above:Performed By: #### BLDCX1 #### [facility] [address] [address] [address] Eliecer DasGlucose [Mass/Vol]102 mg/oPUlemiv19-666UweHocking Valley Community Hospital Comment on above:Performed By: #### URCX #### [facility] [address] [address] [address] Eliecer DasCBTashi AUTO DIFFon 32-85-2488AQCD #0.1 103/ulNormal0.0-0.1The [facility] HospitalComment on above:Performed By: #### BLDCX1 #### [facility] [address] [place] [address] Dr. Eliecer DasBasophils/100 WBC (Bld)1.4 %Normal0.2-2.0The [facility] Comment on above:Performed By: #### BLDCX1 #### [facility] [address] [place] [address] Dr. Eliecer Farias #0.1 103/ulNormal0.0-0.7The [facility] HospitalComment on above: Performed By: #### BLDCX1 #### [facility] [address] [place] [address] Dr. Eliecer Salasosinophils/100 WBC (Bld)2.8 %Normal0.9-7.0The [facility] Hospital Comment on above:Performed By: #### [email or web address] #### [facility] [address] [place] [address] Dr. Eliecer Salasrythrocyte distribution width (RBC) [Ratio]15.4 %Critically high 11.0-15.0The [facility] HospitalComment on above:Performed By: #### [email or web address] #### [facility] [address] [place] [address] Dr. Eliecer DasHematocrit (Bld) [Volume fraction]38.5 %Yoauzn58.0-48.0The [facility] HospitalComment on above:Performed By: #### [email or web address] #### [facility] [address] [place] [address] Dr. Eliecer DasHemoglobin (Bld) [Mass/Vol]14.1 g/yBCsbrzv88.0-16.0The [facility] HospitalComment on above:Performed By: #### [email or web address] #### [facility] [address] [place] [address] Dr. Eliecer Swanson #0.02 10e3/ulNormal0.00-0.03The [facility] HospitalComment on above:Performed By: #### [email or web address] #### [facility] [address] [address] [address] Eliecer Swanson %0.4 %Normal0.0-0.5The [facility]Com[facility] on above: Performed By: #### [email or web address] #### [facility] [address] [place] [address] Dr. Eliecer Mccann #1.2 103/ulNormal1.2-3.8The [facility] HospitalComasc[facility] on above:Performed By: #### [email or web address] #### [facility] [address] [place] [address] Dr. Eliecer Hardinghocytes/100 WBC (Bld)23.7 %Jlnliz99.5-60.0The [facility] on above:Performed By: #### BLDCX1 #### [facility] [address] [place] [address] Dr. Eliecer LukeUAL DIFF REQNONormalThe [facility] HospitalComment on above: Performed By: #### [email or web address] #### [facility] [address] [place] [address] Dr. Eliecer Rodriguez (RBC) [Entitic mass]33.5 frGrjpii76.7-34.0The [facility] on above:Performed By: #### [email or web address] #### [facility] [address] [place] [address] Dr. Eliecer Leonardo (RBC) [Mass/Vol]36.6 g/dLCritically high29.9-35.2The [facility] on above:Performed By: #### BLDCX1 #### [facility] [address] [place] [address] Dr. Eliecer Denson (RBC) [Entitic vol]91.4 jQHvpxdg32.0-99.0The [facility] on above:Performed By: #### [email or web address] #### [facility] [address] [place] [address] Dr. Eliecer Salas #0.5 103/ulNormal0.3-0.8The [facility] HospitalComment on above:Performed By: #### [email or web address] #### [facility] [address] [place] [address] Dr. Eliecer Stuartocytes/100 WBC (Bld)10.6 %Normal1.7-12.0The [facility] Comment on above:Performed By: #### [email or web address] #### [facility] [address] [place] [address] Dr. Eliecer Rogers #3.0 103/ulNormal1.4-6.5The [facility] HospitalComment on above:Performed By: #### [email or web address] #### [facility] [address] [place] [address] Dr. Eliecer Mckeonutrophils/100 WBC (Bld)61.1 %Odkeuw74.0-75.0The [facility] HospitalComment on above:Performed By: #### [email or web address] #### [facility] [address] [place] [address] Dr. Eliecer DasPlatelet mean volume (Bld) [Entitic vol]9.1 fLCritically low 9.5-13.5The [facility] HospitalComment on above:Performed By: #### [email or web address] #### [facility] [address] [place] [address] Dr. Eliecer GonsalesT278 103/pzYfiksm082-978Ksm [facility] HospitalComment on above: Performed By: #### [email or web address] #### [facility] [address] [place] [address] Dr. Eliecer RosenC4.21 106/ulNormal4.20-5.40The [facility] HospitalComment on above:Performed By: #### [email or web address] #### [facility] [address] [place] [address] Dr. Eliecer MccarthyBC5.0 103/ulNormal4.0-11.0The [facility] HospitalComment on above: Performed By: #### BLDCX1 #### [facility] [address] [place] [address] Dr. Eliecer Pittvid-19 PCR (CVDTBH)on 26-37-9342OOBL-CoV-2 (COVID-19) RNA PELON+probe Ql (Unsp spec)Not detectedNormalNOT DETECTEDHocking Valley Community Hospital Comment on above:Result Comment: When diagnostic testing is negative, the [...] for this test is supported by the [place] of Health and Human Service's declaration that circumstances exist to justify the emergency use of in vitro diagnostics for the detection and/or diagnosis of the virus that causes COVID-19. This EUA will remain in effect for the duration of the COVID-19 declaration justifying emergency of IVDs, unless it is terminated or revoked by the FDA (after which the test may no longer be used).Performed By: #### CVDTBH #### [facility] [address] [place] [address] Dr. Eliecer Hall URINE PROFILEon 81-34-6363Yyzychurr Ql (U)NegativeNormal NEGATIVEHocking Valley Community HospitalComment on above:Performed By: #### POCGLUC #### [facility] [address] [place] [address] Dr. Eliecer Ashton (U)CLEARNormalCLEARHocking Valley Community HospitalComment on above: Performed By: #### POCGLUC #### [facility] [address] [place] [address] Dr. Eliecer Mendez (U)LT. YELLOWNormalYELLOWHocking Valley Community HospitalComment on above:Performed By: #### POCGLUC #### [facility] [address] [place] [address] Dr. Eliecer Queen micrscopic examination will be performed if indicated. NormalThe [facility] HospitalComment on above:Performed By: #### POCGLUC #### [facility] [address] [address] [address] Eliecer DasGlucose Ql (U)NegativeNormalNEGATIVEHocking Valley Community HospitalComment on above:Performed By: #### POCGLUC #### [facility] [address] [address] [address] Eliecer DasHemoglobin Ql (U)NegativeNormalNEGUniversity Hospitals Lake West Medical Center Comment on above:Performed By: #### POCGLUC #### [facility] [address] [address] [address] Eliecer DasKetones Ql (U)NegativeNormalNEGATIVEHocking Valley Community HospitalComment on above:Performed By: #### POCGLUC #### [facility] [address] [address] [address] Eliecer DasLEUKOCYTESNegativeNormalNEGATIVEHocking Valley Community HospitalComment on above:Performed By: #### POCGLUC #### [facility] [address] [address] [address] Eliecer DasNitrite Ql (U)PositiveAbnormalNEGUniversity Hospitals Lake West Medical Center Comment on above:Performed By: #### POCGLUC #### [facility] [address] [address] [address] Eliecer DaspH (U)6.5 [pH]Normal5-9Hock[facility] Valley Community HospitalComment on above: Performed By: #### POCGLUC #### [facility] [address] [address] [address] Eliecer DasSPEC GRAVITY1.835Rzmwsf3.005-<=1.025The [facility] HospitalComment on above:Performed By: #### POCGLUC #### [facility] [address] [address] [address] Eliecer DasUA PROTEINNegativeNormalNEGATIVE/ TRACEHocking Valley Community Hospital Comment on above:Performed By: #### POCGLUC #### [facility] [address] [address] [address] Eliecer Crowe MICRO INDINDICATEDNoalThMercy Health Clermont HospitalComment on above: Performed By: #### POCGLUC #### [facility] [address] [place] [address] Dr. Eliecer Greenfield Qn (U)1.0 {Narinder'U}/dLNormal0.2 - 1.0The [facility] Medical Centerment on above:Performed By: #### POCGLUC #### [facility] [address] [place] [address] Dr. Eliecer Henry AND B AGon 65-28-7032EYWHGPHWGYSLGSelect Medical Specialty Hospital - TrumbullComment on above:Result Comment: Negative for Flu A protein angiten. Infection due to Flu A cannot be ruled out. FluA angiten in the sample may be below the detection limit of the test.Performed By: #### BLDCX2 #### [facility] [address] [place] [address] Dr. Eliecer LambertUBNEGHenry County Hospital on above: Result Comment: Negative for Flu B protein antigen. Infection due to Flu B cannot be ruled out. FluB antigen in the sample may be below the detection limit of the test.Performed By: #### BLDCX2 #### [facility] [address] [place] [address] Dr. Eliecer Henry AGNegativeNormalNEGATIVE SEE COMMENTThe [facility] on above:Performed By: #### BLDCX2 #### [facility] [address] [place] [address] Dr. Eliecer Boston AGNegativeNormalNEGATIVE SEE COMMENTThe [facility] on above:Performed By: #### BLDCX2 #### [facility] [address] [place] [address] Dr. Eliecer DasPOINT [facility] GLUCOSEon 05-47-6850Mulvhbl [Mass/Vol]170 mg/dL Critically dlxy45-264YjjProvidence Hospital on above:Performed By: #### POCGLUC #### [facility] [address] [place] [address] Dr. Eliecer DasGlucose [Mass/Vol]94 mg/pSSnutum06-838SgvHocking Valley Community Hospital Comment on above:Performed By: #### POCGLUC #### [facility] [address] [address] [address] Eliecer DasPROKatia 14(COMP METB)on 24-47-5358Fkltolc [Mass/Vol]2.7 g/dL Critically low3.4-5.0The [facility] HospitalComment on above:Performed By: #### URCX #### [facility] [address] [address] [address] Eliecer DasAlbumin/Globulin [Mass ratio]0.6 {ratio}NormalThe [facility] HospitalComment on above:Performed By: #### URCX #### [facility] [address] [place] [address] Dr. Eliecer Mallory [Catalytic activity/Vol]89 U/NYcnjgc93-243Nkt [facility] HospitalComment on above:Performed By: #### URCX #### [facility] [address] [place] [address] Dr. Eliecer Conley [Catalytic activity/Vol]29 U/EElvbva63-76Bnu [facility] HospitalComment on above:Performed By: #### URCX #### [facility] [address] [place] [address] Dr. Eliecer Elias gap [Moles/Vol]11.8 mmol/LNormalThe [facility] Comment on above:Performed By: #### URCX #### [facility] [address] [address] [address] Eliecer DasAST [Catalytic activity/Vol]49 U/LCritically roxv39-43Jdn [facility] HospitalComment on above:Performed By: #### URCX #### [facility] [address] [place] [address] Dr. Eliecer DasBilirubin [Mass/Vol]1.6 mg/dLCritically high0.2-1.0The [facility] HospitalComment on above:Performed By: #### URCX #### [facility] [address] [place] [address] Dr. Eliecer DasCalcium [Mass/Vol]9.1 mg/dLNormal8.5-10.1The [facility] Comment on above:Performed By: #### URCX #### [facility] [address] [place] [address] Dr. Eliecer DasChloride [Moles/Vol]109 mmol/LCritically mogd19-627Ogo [facility] HospitalComment on above:Performed By: #### URCX #### [facility] [address] [place] [address] Dr. Eliecer DasCO2 [Moles/Vol]28.4 mmol/ZQcxufr09.0-32.0The [facility] Comment on above:Performed By: #### URCX #### [facility] [address] [place] [address] Dr. Eliecer DasCreatinine [Mass/Vol]0.75 mg/dLNormal0.55-1.02The [facility] HospitalComment on above:Performed By: #### URCX #### [facility] [address] [place] [address] Dr. Gonzáles ChangEGFR-AF [place] CITIZ[place]>60Normal>=60The [facility] HospitalComment on above:Performed By: #### URCX #### [facility] [address] [place] [address] Dr. Eliecer SalasGFR-NON AF [place]IZ[place]>60Normal>=60The [facility] HospitalComment on above:Performed By: #### URCX #### [facility] [address] [place] [address] Dr. Eliecer DasGlobulin (S) [Mass/Vol]4.4 g/dLNormalThe [facility] HospitalComment on above:Performed By: #### URCX #### [facility] [address] [place] [address] Dr. Eliecer DasGlucose [Mass/Vol]109 mg/dLCritically usad10-699Ppg [facility] HospitalComment on above:Performed By: #### URCX #### [facility] [address] [place] [address] Dr. Eliecer DasPotassium [Moles/Vol]4.2 mmol/LNormal3.5-5.1The [facility] Comment on above:Performed By: #### URCX #### [facility] [address] [address] [address] Eliecer DasProtein [Mass/Vol]7.1 g/dLNormal6.4-8.2The [facility] Comment on above:Performed By: #### URCX #### [facility] [address] [address] [address] Eliecer DasSodium [Moles/Vol]145 mmol/TByfurs178-067Vik [facility] Comment on above:Performed By: #### URCX #### [facility] [address] [place] [address] Dr. Eliecer DasUrea nitrogen [Mass/Vol]11.0 mg/dLNormal7.0-18.0The [facility] HospitalComment on above:Performed By: #### URCX #### [facility] [address] [place] [address] Dr. Eliecer Juan nitrogen/Creatinine [Mass ratio]14.7 mg/mgNormalThMercy Health Clermont HospitalComment on above:Performed By: #### URCX #### [facility] [address] [place] [address] Dr. Eliecer Shahid, HIGH SENSITIVITYon 23-41-6748MYKTOZ28.7 pg/mLNormal 4.0-51.3The [facility] HospitalComment on above:Result Comment: CUT-OFF POINTS HAVE BEEN ESTABLISHED BASED ON THE FOURTH UNIVERSAL DEFINITIONS OF MYOCARDIAL INFARCTION. THE UPPER REFERENCE LIMIT (URL) OF TROPONIN, DEFINED THE 99TH PERCENTILE OF cTnI DISTRIBUTION IN A REFERENCE POPULATION, HAS BEEN CONFIRMED THE DECISION THRESHOLD FOR OR DIAGNOSIS.Performed By: #### URCX #### [facility] [address] [place] [address] Dr. Eliecer Ontiveros MICROSCOPIC ONLYon 67-09-6316TAXYLLNZYTKICTCRIdbvopctYXHW SEENThe [facility] HospitalComment on above:Performed By: #### POCGLUC #### [facility] [address] [place] [address] Dr. Eliecer Mcgill identified Cx Nom (U)INDICATEDNoalThMercy Health Clermont HospitalComment on above:Performed By: #### POCGLUC #### [facility] [address] [place] [address] Dr. Eliecer DasCASTNINA SEENNormalNONE SEENHocking Valley Community HospitalComment on above:Performed By: #### POCGLUC #### [facility] [address] [place] [address] Dr. Eliecer Nobleystals LM Nom (Urine sed)NONE SEENNormalNONE SEENHocking Valley Community HospitalComascension providence hospital on above:Performed By: #### POCGLUC #### [facility] [address] [place] [address] Dr. Gonzáles ChangEpithelial cells LM Ql (Urine sed)FEWAbnormalNONE SEEN /RAREThe [facility] HospitalComasc[facility] hospital on above:Performed By: #### POCGLUC #### [facility] [address] [place] [address] Dr. Eliecer Velasquez SEENHoodNONE SEENHocking Valley Community HospitalComascension providence hospital on above:Performed By: #### POCGLUC #### [facility] [address] [place] [address] Dr. Eliecer DasVjkbpHDI2-7Fnjvzo8-3Hwu [facility] HospitalComasc[facility] on above:Performed By: #### POCGLUC #### [facility] [address] [place] [address] Dr. Eliecer DasWBC5-10AbnormalNONE SEENHocking Valley Community HospitalComascension providence hospital on above: Performed By: #### POCGLUC #### [facility] [address] [place] [address] Dr. Eliecer DasXR CHEST 1 Von 52-56-6874BC CHEST 1 VEXAM: XR CHEST 1 V HISTORY: COUGH COMPARISON: 03/01/2022 TECHNIQUE: Single view of the chest. FINDINGS: Left basilar opacities obstructing the left hemidiaphragm. The heart is enlarged. No right-sided pleural effusion. No pneumothorax. Atherosclerotic calcifications of the aorta. IMPRESSION: Left basilar atelectasis/consolidation. Electronically authenticated by: MARCO LEROY Date: 2022-10-13 12:34[facility] HospitalA1C HEMOGLOBINon 06-00-1144RgZ1t (Bld) [Mass fraction]5.4 % Outline Other HbA1c (Bld) [Mass fraction]on 83-65-4192W6H HEMOGLOBIN Outline Other Urinalysis - AUTOMATEDon 82-77-1253Qwmcfwgivo (U)CLEAR Outline Other Bilirubin Ql (U)SMALLOutline Other Color (U)YELLOWOutline Other Glucose Ql (U)NegativeOutline Other Hemoglobin Ql (U)LARGEOutline Other Ketones Ql (U)TRACEOutline Other Leukocyte esterase Test strip Ql (U)TRACEOutline Other Nitrite Ql (U)PositiveOutline Other pH (U)5.5 [pH]Outline Other Protein Ql (U)NegativeOutline Other Specific gravity (U) [Rel density]>=1.030NoEatwave Other Urobilinogen (U) [Mass/Vol]1.0 mg/dLOutline Other Urinalysis - AUTOMATEDOutline Other US thyroidon 56-55-6585GD thyroidGRAND LAKE [facility] Main [address] [address] Ultrasound Report Signed Patient: Salma Quan MR#: [id number] : 1935 Acct:[id number] Age/Sex: 87 / F ADM Date: 06/15/22 Loc: RT Room: Type: REG CLI Attending Dr: Brendon Castelan MD Ordering [...] Franki Chris M.D.06/15/2022 4:03 PM Dictation Location: [place] [address] Tech: Cindy Araya Transcribed By: [facility] 06/15/22 1603 Dictated By: Franki Chris DO 06/15/22 1601 Signed By: 06/15/22 [facility]CT [facility] wo conon 06-08-2022 CT chest [facility] [place] [address] CT Scan Report Signed Patient: Salma Quan MR#: [id number] : 1935 Acct:[id number] Age/Sex: 87 / F ADM Date: 06/08/22 Loc: CT Room: Type: [facility] CLI Attending Dr: Brendon Castelan MD [...] ultrasound. Impression dictated by: Christiano Cameron Jr., D.O.06/08/2022 3:17 PM Dictation Location: [facility]- Transcribed By: [facility] 06/08/22 1517 Dictated By: Christiano Cameron Jr, DO 06/08/22 1514 Signed By: 06/08/22 [facility] GlenbeighARS-CoV-2 (COVID-19) RNA PELON+probe Ql (Unsp spec)cough. History of COVIDHooper [employer] Other ct chest wo [facility] [employer] Other CT chest wo conFRMPremier Health Upper Valley [facility] [employer] Other CT chest wo [id number] [facility] [employer] [place] [address] [employer] Other ct chest wo conCT Scan ReportHooper [employer] Other ct chest wo conSignedHooper [employer] Other ct chest wo conPatient: Salma Quan MR#: [id number] [facility] [email or web address] Other CT chest wo [id number] [employer] Other ct chest wo conDOB: 1935 Acct:[id number] [employer] Other ct chest wo conAge/Sex: 87 / F ADM Date: 06/08/22[facility] Other ct chest wo conLoc: CT Room: Type: [facility] [employer] Other ct chest wo conAttending Dr: Brendon Castelan MDSeatID [employer] Other ct chest wo conCopies to: Brendon Castelan MDHooper [employer] Other ct chest wo conOrdering Provider: Brendon Castelan MDSeatID [employer] Other ct chest wo conDate of Service: 06/08/22Ho[facility] [employer] Other ct chest wo conAccession #: ([id number]) CT/CT chest wo con: Cough;Edema extremities;CardiomegalyNsaint john's breech regional medical center [employer] Other ct chest wo conCT CHEST WITHOUT IV CONTRAST:Outline Other ct chest wo conCLINICAL HISTORY: Shortness of breath with exertion. Bilateral lower extremity swelling withHooper [employer] Other ct chest wo conCOMPARISON: Chest 05/26/2022Hooper [employer] Other ct chest wo conTECHNIQUE: Spiral images were obtained through the chest without IV contrast. This CT exam wasHooper [employer] Other ct chest wo conperformed using one or more following dose reduction techniques: Automated exposure control,Outline Other ct chest wo conadjustment of the mA and/or kV according to patient size, or use of iterative reconstructionHooper [employer] Other ct chest wo contechnique.Outline Other ct chest wo conFINDINGS:Outline Other ct chest wo conMediastinum:Lobular appearing thyroid gland with a punctate calcification. Thoracic aorta appearsNoresearch psychiatric center [employer] Other ct chest wo connormal in caliber. Pulmonary trunk is nondilated. No pericardial effusion. No lymphadenopathy.Outline Other ct chest wo conThe esophagus is grossly unremarkable. Outline Other ct chest wo conLungs:Peripheral fibrotic changes without honeycombing. No focal consolidation, pneumothorax [facility] [employer] Other ct chest wo conpleural effusion. Trachea and distal airways appear patent. No suspicious lung nodule.Outline Other ct chest wo conAbd:No acute findings.Outline Other ct chest wo conSoft tissues/Bones: Visualized soft tissues surrounding the chest wall demonstrate no acuteNoresearch psychiatric center [employer] Other ct chest wo confindings. Osseous structures demonstrate degenerative change.Outline Other ct chest wo conORDER #: [id number] CT/CT chest wo con Outline Other ct chest wo conIMPRESSION:Outline Other ct chest wo conPeripheral fibrotic changes without honeycombing. No acute process is seen.Outline Other ct chest wo conLobular appearing thyroid gland with punctate calcification. This can be further evaluated byHooper [employer] Other ct chest wo conultrasound.Outline Other ct chest wo conImpression dictated by: Christiano Cameron Jr., D.OKelly06/08/2022 3:17 [facility] [employer] Other ct chest wo conDictation Location: [id number] [employer] Other CT chest wo conTranscribed By: PWS 06/08/[address] [place] [address] [employer] Other CT chest wo conDictated By: Christiano Cameron Jr, DO 06/08/[address] [place] [address] [employer] Other CT chest wo conSigned By:[facility] [email or web address] Other CT chest wo con06/08/[address] [place] [address] [employer] Other [facility] echo transthoracicon 11-75-1273FDU echo transthoracicGRAND LAKE [facility] Main Jekyll [place] [address] [place] [address] Echocardiogram Signed Patient: Salma Quan MR#: [id number] 468 : 1935 Acct:[id number] Age/Sex: 87 / F ADM Date: 06/08/22 Loc: CT Room: Type: [facility] Attending Dr: Brendon Castelan MD Ordering Provider: [...] Performed At: 06/08/22 1423 Signed By: Matthew Jacob MD 06/08/22 1549NormalMadison HealthA1C HEMOGLOBINon 60-87-8874AlX4i (Bld) [Mass fraction]5.4 %Outline Other HbA1c (Bld) [Mass fraction]on 69-11-6123Y2X HEMOGLOBIN [facility] [email or web address] Other Albumin [Mass/volume] in Serum or PlasmaOrdered By: Brendon Castelan on 08-43-6033Cbwjngs [Mass/Vol]3.0 g/dL3.2-5.5FTogus VA Medical CenterBasophils Auto (Bld) [#/Vol]Ordered By: Brendon Castelan on 00-53-4032Ilyjsxghr (Bld) [#/Vol]0.1 10*3/uL0.0-0.2FTogus VA Medical CenterBasophils/100 WBC Auto (Bld)Ordered By: Brendon Castelan on 76-86-6915Lfwcjgnas/100 WBC (Bld)1.2 %.Madison HealthBlood hemoglobin measurement (mass/volume)Ordered By: Brendon Castelan on 05-17-2022 Hemoglobin (Bld) [Mass/Vol]14.4 g/dL11.8-15.4FTogus VA Medical Center Blood leukocytes automated count (number/volume)Ordered By: Brendon Castelan on 24-32-8546YMJ (Bld) [#/Vol]6.3 10*3/uL4.5-11.0[facility] Creatinine and Glomerular filtration rate.predicted panel (S/P/Bld)Ordered By: Brendon Castelan on 09-40-8089Gllqznuwap [Mass/Vol]0.90 mg/dL0.44-1.03Madison HealthEosinophils Auto (Bld) [#/Vol]Ordered By: Brendon Castelan on 64-63-7904Mmtkchpeuff (Bld) [#/Vol]0.2 10*3/uL0.0-0.45Madison HealthEosinophils/100 WBC Auto (Bld)Ordered By: Brendon Castelan on 05-62-4315Vcwtqvreqvp/100 WBC (Bld)3.5 %.Madison HealthErythrocyte distribution width Auto (RBC) [Ratio]Ordered By: Brendon Castelan on 64-24-1855Bbfmhyeguhx distribution width (RBC) [Ratio]15.4 %11.9-15.3FTogus VA Medical CenterEstimated glomerular filtration rate (GFR) non- AmericanOrdered By: Brendon Castelan on 31-90-9089JWL/1.73 sq M.predicted among non-blacks MDRD (S/P/Bld) [Vol rate/Area]60 mL/MinMadison HealthGlobulin Calc (S) [Mass/Vol]Ordered By: Brendon Castelan on 26-54-3330Ijztijxu (S) [Mass/Vol]3.7 g/dLMadison Health Hematocrit Auto (Bld) [Volume fraction]Ordered By: Brendon Castelan on 01-44-1441Xhoprehyaa (Bld) [Volume fraction]43.9 %34.0-46.4FTogus VA Medical CenterLaboratory - Hematology and Cell countsOrdered By: Brendon Castelan on 64-34-5967Yhbsqxpbn RBC/100 WBC (Bld) [Ratio]0.1 %0-0.5FTogus VA Medical CenterLymphocytes Auto (Bld) [#/Vol]Ordered By: Brendon Castelan on 89-81-4004Nqnvuqpilsn (Bld) [#/Vol]1.9 10*3/uL1.00-4.8Madison HealthLymphocytes/100 WBC Auto (Bld)Ordered By: Brendon Castelan on 92-63-7801Dedubdmfonj/100 WBC (Bld)29.5 %.Madison HealthMCH Auto (RBC) [Entitic mass]Ordered By: Brendon Castelan on 84-61-8444TJI (RBC) [Entitic mass]30.3 pg24.7-34.3FTogus VA Medical CenterMCHC Auto (RBC) [Mass/Vol]Ordered By: Brendon Castelan on 59-07-8360PMAK (RBC) [Mass/Vol]32.8 g/dL32.0-35.0Mad[facility] HealthMCV Auto (RBC) [Entitic vol]Ordered By: Brendon Castelan on 45-09-3542MUA (RBC) [Entitic vol]92.4 bS77-308YeixneiqhMadison HealthMonocytes Auto (Bld) [#/Vol] Ordered By: Brendon Castelan on 91-57-4831Tkgdobvtt (Bld) [#/Vol]0.7 10*3/uL 0.0-0.8Madison HealthMonocytes/100 WBC Auto (Bld)Ordered By: Brendon Castelan on 07-04-1958Kukbitxde/100 WBC (Bld)10.8 %.[facility]ison HealthNeutrophils Auto (Bld) [#/Vol]Ordered By: Brendon Castelan on 43-46-4938Objjsvvxdoo (Bld) [#/Vol]3.5 10*3/uL1.8-7.7FTogus VA Medical CenterNeutrophils/100 WBC Auto (Bld)Ordered By: Brendon Castelan on 05-17-2022 Neutrophils/100 WBC (Bld)55.0 %.Madison HealthNo Panel InformationOrdered By: Brendon Castelan on 38-62-8856Zruygygha GFR ()> 60 mL/MinMadison HealthComment on above:GFR estimated reference range: According to KDOQI guidelines, <60 ml/min/1.73m2 is sufficient todiagnose a patient with chronic kidney disease.Pharmacy Creatinine Clearance (ChemN/[facility] CenterPlatelet mean volume Auto (Bld) [Entitic vol]Ordered By: Brendon Castelan on 04-23-7577Hkiuugio mean volume (Bld) [Entitic vol]8.1 fL6.3-10.7FTogus VA Medical Center Platelets Auto (Bld) [#/Vol]Ordered By: Brendon Castelan on 24-51-4955Cpdrfxxjy (Bld) [#/Vol]371 10*3/gD697-904BdfxvivhaMadison HealthProtein [Mass/volume] in Serum or PlasmaOrdered By: Brendon Castelan on 05-17-2022 Protein [Mass/Vol]6.7 g/dL6.1-7.9Madison HealthRBC Auto (Bld) [#/Vol]Ordered By: Brendon Castelan on 03-89-4443OQK (Bld) [#/Vol]4.75 10*6/uL 3.60-5.00[facility] Hospitalerum or plasma alanine aminotransferase measurement without P-5'-P (enzymatic activiOrdered By: Brendon Castelan on 17-77-4715ARI No additional P-5'-P [Catalytic activity/Vol]26 U/L 10-60[facility] Hospitalerum or plasma albumin/globulin mass ratioOrdered By: Brendon Castelan on 61-79-5728Eizhrmx/Globulin [Mass ratio]0.8 {ratio}[facility] Hospitalerum or plasma alkaline phosphatase measurement (enzymatic activity/volume)Ordered By: Brendon Castelan on 12-88-7053SKF [Catalytic activity/Vol]67 U/C11-50UexiqiwibAvita Health System Bucyrus Hospitalerum or plasma anion gap determinationOrdered By: Brendon Castelan on 54-23-4775Wwfca gap [Moles/Vol]11.1 mmol/L6.0-15.0[facility] Hospitalerum or plasma aspartate aminotransferase measurement (enzymatic activity/volume)Ordered By: Brendon Castelan on 04-90-5275HNA [Catalytic activity/Vol]43 U/A52-01LcgrnysgjAvita Health System Bucyrus Hospitalerum or plasma calcium measurement (mass/volume)Ordered By: Brendon Castelan on 65-98-0001Zxrhjix [Mass/Vol]9.8 mg/dL8.2-10.2FMercy Health St. Elizabeth Boardman Hospitalerum or plasma chloride measurement (moles/volume)Ordered By: Brendon Castelan on 05-17-2022 Chloride [Moles/Vol]103 mmol/O01-563PmhvkbeauAvita Health System Bucyrus Hospitalerum or plasma glucose measurement (mass/volume)Ordered By: Brendon Castelan on 38-77-5304Wdurbec [Mass/Vol]140 mg/lE83-205VoxnnlypjMadison Health Comment on above:ADA recommended reference range Random Glucose Reference Range is dependent on time and content of last meal. Glucose of more than 200 mg/dL in a nonstressed, ambulatory subject supports the diagnosis of Diabetes Mellitus.Serum or plasma potassium measurement (moles/volume)Ordered By: Brendon Castelan on 63-63-6723Znjpgigay [Moles/Vol] 4.5 mmol/L3.5-5.1FMercy Health St. Elizabeth Boardman Hospitalerum or plasma sodium measurement (moles/volume)Ordered By: Brendon Castelan on 50-55-0382Gwnrck [Moles/Vol]139 mmol/W886-294YougjcuhgAvita Health System Bucyrus Hospitalerum or plasma total bilirubin measurement (mass/volume)Ordered By: Brendon Castelan on 89-46-0418Flvzhsidj [Mass/Vol]1.5 mg/dL0.3-1.2FTogus VA Medical Center Comment on above:Samples from patients who have taken Naproxen have shown spurious elevation in Total Bilirubin levels. A metabolite of Naproxen, O- desmethylnaproxen, has been shown to interfere with the Jeanine-Ximena method for measuring Total Bilirubin.Serum or plasma total carbon dioxide measurement (moles/volume)Ordered By: Brendon Castelan on 22-49-1751HN5 [Moles/Vol]29.4 mmol/L22.0-30.0[facility] Hospitalerum or plasma urea nitrogen measurement (mass/volume)Ordered By: Brendon Castelan on 38-91-7471Omaf nitrogen [Mass/Vol]12 mg/dL9-23Madison HealthCBC AUTO DIFFon 77-33-2681BEIG #0.1 103/ulNormal0.0-0.1The [facility] HospitalComment on above: Performed By: #### URCX #### [facility] [address] [address] [address] Eliecer DasBasophils/100 WBC (Bld)0.8 %Normal0.2-2.0The [facility] Comment on above:Performed By: #### URCX #### [facility] [address] [address] [address] Eliecer Farias #0.0 103/ulNormal0.0-0.7The [facility] HospitalComment on above: Performed By: #### URCX #### [facility] [address] [address] [address] Eliecer Salasosinophils/100 WBC (Bld)0.1 %Critically low0.9-7.0The [facility] HospitalComment on above:Performed By: #### URCX #### [facility] [address] [address] [address] Eliecer Salasrythrocyte distribution width (RBC) [Ratio]13.4 %Ciklgx08.0-15.0 The [facility] HospitalComment on above:Performed By: #### URCX #### [facility] [address] [place] [address] Dr. Eliecer DasHematocrit (Bld) [Volume fraction]42.9 %Zmgsej18.0-48.0The [facility] HospitalComment on above:Performed By: #### URCX #### [facility] [address] [place] [address] Dr. Eliecer DasHemoglobin (Bld) [Mass/Vol]14.3 g/zSEgzoeg14.0-16.0The [facility] HospitalComment on above:Performed By: #### URCX #### [facility] [address] [place] [address] Dr. Eliecer Swanson #0.07 10e3/ulCritically high0.00-0.03The [facility] Comment on above:Performed By: #### URCX #### [facility] [address] [place] [address] Dr. Eliecer Swanson %0.8 %Critically high0.0-0.5The [facility] HospitalComment on above:Performed By: #### URCX #### [facility] [address] [place] [address] Dr. Eliecer HardingH #1.3 103/ulNormal1.2-3.8The [facility] HospitalComment on above:Performed By: #### URCX #### [facility] [address] [place] [address] Dr. Eliecer Jonesmphocytes/100 WBC (Bld)14.4 %Critically low20.5-60.0The [facility] HospitalComment on above:Performed By: #### URCX #### [facility] [address] [place] [address] Dr. Eliecer LukeUAL DIFF REQNONormalThe [facility] HospitalComment on above: Performed By: #### URCX #### [facility] [address] [place] [address] Dr. Eliecer LeonardoH (RBC) [Entitic mass]31.2 jwNczcrz32.7-34.0The [facility] HospitalComment on above:Performed By: #### URCX #### [facility] [address] [place] [address] Dr. Eliecer Leonardo (RBC) [Mass/Vol]33.3 g/jCYjwmed46.9-35.2The [facility] HospitalComment on above:Performed By: #### URCX #### [facility] [address] [place] [address] Dr. Eliecer Denson (RBC) [Entitic vol]93.7 mVFgsiki35.0-99.0The [facility] HospitalComment on above:Performed By: #### URCX #### [facility] [address] [place] [address] Dr. Eliecer Salas #1.0 103/ulCritically high0.3-0.8ThMercy Health [facility] Comment on above:Performed By: #### URCX #### [facility] [address] [place] [address] Dr. Eliecer Stuartocytes/100 WBC (Bld)10.4 %Normal1.7-12.0[facility] Comment on above:Performed By: #### URCX #### [facility] [address] [place] [address] Dr. Eliecer Rogers #6.8 103/ulCritically high1.4-6.5ThMercy Health [facility] Hospital Comment on above:Performed By: #### URCX #### [facility] [address] [place] [address] Dr. Eliecer Palomoophils/100 WBC (Bld)73.5 %Nfmody63.0-75.0[facility] HospitalComment on above:Performed By: #### URCX #### [facility] [address] [place] [address] Dr. Eliecer Shooklet mean volume (Bld) [Entitic vol]9.0 fLCritically low 9.5-13.5The [facility] HospitalComment on above:Performed By: #### URCX #### [facility] [address] [place] [address] Dr. Eliecer DasPLT230 103/kkDfssni123-103Ykd [facility] HospitalComment on above: Performed By: #### URCX #### [facility] [address] [place] [address] Dr. Eliecer DasRBC4.58 106/ulNormal4.20-5.40The [facility] HospitalComment on above:Performed By: #### URCX #### [facility] [address] [place] [address] Dr. Eliecer DasWBC9.2 103/ulNormal4.0-11.0The [facility] HospitalComment on above: Performed By: #### URCX #### [facility] [address] [place] [address] Dr. Eliecer DasCUJAILENE BLOODon 65-19-9896Wcslacsduqy examination of blood, cultureCulture Observations: No growth at 5 days.NormalThe [facility] HospitalComment on above:Performed By: #### [email or web address] #### [facility] [address] [place] [address] Dr. Eliecer DasLACTATE/LACTIC ACIDon 42-44-1667Wtyyhrj [Moles/Vol]2.1 mmol/L Critically high0.4-1.9The [facility] HospitalComment on above:Performed By: #### POCGLUC #### [facility] [address] [place] [address] Dr. Eliecer DasLactate [Moles/Vol]2.3 mmol/LCritically high0.4-1.9The [facility] Centerment on above:Performed By: #### URCX #### [facility] [address] [place] [address] Dr. Eliecer DasLactate [Moles/Vol]2.2 mmol/LCritically high0.4-1.9The [facility] HospitalComment on above:Performed By: #### BLDCX1 #### [facility] [address] [place] [address] Dr. Eliecer DasPOINT OF CARE GLUCOSEon 09-54-1716Empgxwo [Mass/Vol]123 mg/dL Critically ufdt58-195Fry [facility] HospitalComment on above:Performed By: #### POCGLUC #### [facility] [address] [place] [address] Dr. Eliecer DasGlucose [Mass/Vol]114 mg/dLCritically ezic23-377Jfm [facility] HospitalComment on above:Performed By: #### BLDCX1 #### [facility] [address] [place] [address] Dr. Eliecer Maldonado 14(COMP METB)on 92-06-8195Aprebfy [Mass/Vol]2.6 g/dL Critically low3.4-5.0The [facility] HospitalComment on above:Performed By: #### BLDCX2 #### [facility] [address] [place] [address] Dr. Eliecer DasAlbumin/Globulin [Mass ratio]0.6 {ratio}NormalThe [facility] HospitalComment on above:Performed By: #### BLDCX2 #### [facility] [address] [place] [address] Dr. Eliecer Mallory [Catalytic activity/Vol]67 U/MDyvjan53-267Caa [facility] HospitalComment on above:Performed By: #### BLDCX2 #### [facility] [address] [place] [address] Dr. Eliecer Conley [Catalytic activity/Vol]37 U/MLaixew20-61Tjj [facility] HospitalComment on above:Performed By: #### BLDCX2 #### [facility] [address] [place] [address] Dr. Eliecer Elias gap [Moles/Vol]10.8 mmol/LNormalThe [facility] on above:Performed By: #### BLDCX2 #### [facility] [address] [place], [place] [id number] Dr. Eliecer DasAST [Catalytic activity/Vol]60 U/LCritically kgyj84-94Pse [facility] HospitalComment on above:Performed By: #### BLDCX2 #### [facility] [address] [address] [address] Eliecer DasBilirubin [Mass/Vol]1.6 mg/dLCritically high0.2-1.0The [facility] HospitalComment on above:Performed By: #### BLDCX2 #### [facility] [address] [place] [address] Dr. Eliecer DasCalcium [Mass/Vol]8.5 mg/dLNormal8.5-10.1The [facility] Comment on above:Performed By: #### BLDCX2 #### [facility] [address] [place] [address] Dr. Eliecer DasChloride [Moles/Vol]103 mmol/JRzlqrh93-448Txs [facility] Comment on above:Performed By: #### BLDCX2 #### [facility] [address] [place] [address] Dr. Eliecer DasCO2 [Moles/Vol]26.7 mmol/PVjmukt31.0-32.0The [facility] Comment on above:Performed By: #### BLDCX2 #### [facility] [address] [place] [address] Dr. Eliecer DasCreatinine [Mass/Vol]0.83 mg/dLNormal0.55-1.02The [facility] HospitalComment on above:Performed By: #### BLDCX2 #### [facility] [address] [place] [address] Dr. Gonzáles ChangEGFR-AF [place] CITIZ[place]>60Normal>=60The [facility] HospitalComment on above:Performed By: #### BLDCX2 #### [facility] [address] [place] [address] Dr. Eliecer SalasGFR-NON AF [place]>60Normal>=60The [facility] HospitalComment on above:Performed By: #### BLDCX2 #### [facility] [address] [address] [address] Eliecer DasGlobulin (S) [Mass/Vol]4.4 g/dLNormRiverside Methodist HospitalComment on above:Performed By: #### BLDCX2 #### [facility] [address] [address] [address] Eliecer DasGlucose [Mass/Vol]122 mg/dLCritically inzd40-537Jyi [facility] HospitalComment on above:Performed By: #### BLDCX2 #### [facility] [address] [address] [address] Eliecer DasPotassium [Moles/Vol]4.5 mmol/LNormal3.5-5.1The [facility] Comment on above:Performed By: #### BLDCX2 #### [facility] [address] [place] [address] Dr. Eliecer DasProtein [Mass/Vol]7.0 g/dLNormal6.4-8.2The [facility] Comment on above:Performed By: #### BLDCX2 #### [facility] [address] [address] [address] Eliecer DasSodium [Moles/Vol]136 mmol/RBocilp340-176Zwf [facility] Comment on above:Performed By: #### BLDCX2 #### [facility] [address] [place] [address] Dr. Eliecer DasUrea nitrogen [Mass/Vol]12.0 mg/dLNormal7.0-18.0The [facility] HospitalComment on above:Performed By: #### BLDCX2 #### [facility] [address] [place] [address] Dr. Eliecer DasUrea nitrogen/Creatinine [Mass ratio]14.5 mg/mgNoOhioHealth Pickerington Methodist HospitalComment on above:Performed By: #### BLDCX2 #### [facility] [address] [place] [address] Dr. Eliecer DasAlbumin [Mass/Vol]2.7 g/dLCritically low3.4-5.0The [facility] HospitalComment on above:Performed By: #### POCGLUC #### [facility] [address] [address] [address] Eliecer DasAlbumin/Globulin [Mass ratio]0.6 {ratio}NormalThe [facility] HospitalComment on above:Performed By: #### POCGLUC #### [facility] [address] [address] [address] Eliecer AndrewsP [Catalytic activity/Vol]69 U/FJshhax76-148Znq [facility] HospitalComment on above:Performed By: #### POCGLUC #### [facility] [address] [address] [address] Eliecer AndrewsT [Catalytic activity/Vol]45 U/KKdmovm24-61Xgd [facility] on above:Performed By: #### POCGLUC #### [facility] [address] [address] [address] Eliecer Lynchon gap [Moles/Vol]13.5 mmol/LNormalThe [facility] Comment on above:Performed By: #### POCGLUC #### [facility] [address] [address] [address] Eliecer DasAST [Catalytic activity/Vol]64 U/LCritically ilhs97-82Ftf [facility] on above:Performed By: #### POCGLUC #### [facility] [address] [address] [address] Eliecer DasBilirubin [Mass/Vol]1.6 mg/dLCritically high0.2-1.0The [facility] HospitalComment on above:Performed By: #### POCGLUC #### [facility] [address] [address] [address] Eliecer DasCalcium [Mass/Vol]9.0 mg/dLNormal8.5-10.1[facility] Comment on above:Performed By: #### POCGLUC #### [facility] [address] [address] [address] Eliecer DasChloride [Moles/Vol]101 mmol/JArgamb75-394Pjl [facility] Comment on above:Performed By: #### POCGLUC #### [facility] [address] [address] [address] Eliecer DasCO2 [Moles/Vol]25.1 mmol/WGahjlh69.0-32.0The [facility] Comment on above:Performed By: #### POCGLUC #### [facility] [address] [address] [address] Eliecer DasCreatinine [Mass/Vol]0.89 mg/dLNormal0.55-1.02The [facility] HospitalComment on above:Performed By: #### POCGLUC #### [facility] [address] [address] [address] Gonzáles ChangEGFR-AF [place]IZ[place]>60Normal>=60The [facility] HospitalComment on above:Performed By: #### POCGLUC #### [facility] [address] [address] [address] Eliecer SalasGFR-NON AF IHVITLDS94 mL/min/1.03s2Uutdvo>=60The [facility] HospitalComment on above:Performed By: #### POCGLUC #### [facility] [address] [address] [address] Eliecer DasGlobulin (S) [Mass/Vol]4.4 g/dLNormalThe [facility] HospitalComment on above:Performed By: #### POCGLUC #### [facility] [address] [address] [address] Eliecer DasGlucose [Mass/Vol]132 mg/dLCritically vnqj83-448Bil [facility] HospitalComment on above:Performed By: #### POCGLUC #### [facility] [address] [address] [address] Eliecer DasPotassium [Moles/Vol]4.6 mmol/LNormal3.5-5.1The [facility] Comment on above:Performed By: #### POCGLUC #### [facility] [address] [address] [address] Eliecer DasProtein [Mass/Vol]7.1 g/dLNormal6.4-8.2The [facility] Comment on above:Performed By: #### POCGLUC #### [facility] [address] [address] [address] Eliecer DasSodium [Moles/Vol]135 mmol/LCritically izp600-617Wdt [facility] HospitalComment on above:Performed By: #### POCGLUC #### [facility] [address] [address] [address] Eliecer Juan nitrogen [Mass/Vol]12.0 mg/dLNormal7.0-18.0The [facility] HospitalComment on above:Performed By: #### POCGLUC #### [facility] [address] [address] [address] Eliecer DasUrea nitrogen/Creatinine [Mass ratio]13.5 mg/mgNormalThe [facility] HospitalComment on above:Performed By: #### POCGLUC #### [facility] [address] [place] [address] Dr. Eliecer DasRESPIRATORY PANEL PLUSon 62-01-5012NkuywbdlbcNwp detectedNormal NOT DETECTEDThe [facility] HospitalComment on above:Performed By: #### CVDTBH #### [facility] [address] [address] [address] Eliecer Maldonado ParapertusisNot detectedNormalNOT DETECTEDThe [facility] HospitalComment on above:Performed By: #### CVDTBH #### [facility] [address] [address] [address] Eliecer Maldonado PertussisNot detectedNormalNOT DETECTEDThe [facility] on above:Performed By: #### CVDTBH #### [facility] [address] [address] [address] Eliecer DasChlamydia PneumoniaeNot detectedNormalNOT DETECTEDThe [facility] HospitalComment on above:Performed By: #### CVDTBH #### [facility] [address] [address] [address] Eliecer DasCoronavirus 229ENot detectedNormalNOT DETECTEDThe [facility] HospitalComment on above:Performed By: #### CVDTBH #### [facility] [address] [address] [address] Eliecer Pittronavirus NVB7Lbz detectedNormalNOT DETECTEDThe [facility] HospitalComment on above:Performed By: #### CVDTBH #### [facility] [address] [address] [address] Eliecer DasCoronavirus QI10Uvh detectedNormalNOT DETECTEDThe [facility] HospitalComment on above:Performed By: #### CVDTBH #### [facility] [address] [address] [address] Eliecer DasCoronavirus GV23Rzx detectedNormalNOT DETECTEDThe [facility] HospitalComment on above:Performed By: #### CVDTBH #### [facility] [address] [address] [address] Eliecer Cardozo A H1 2009Not detectedNormalNOT DETECTEDThe [facility]Com[facility] on above:Performed By: #### CVDTBH #### [facility] [address] [address] [address] Eliecer Cardozo A H3Not detectedNormalNOT DETECTEDThe [facility] Comment on above:Performed By: #### CVDTBH #### [facility] [address] [address] [address] Eliecer Cardozo BNot detectedNormalNOT DETECTEDHocking Valley Community Hospital Comment on above:Performed By: #### CVDTBH #### [facility] [address] [address] [address] Eliecer SotoapneumovirusNot detectedNormalNOT DETECTEDThe [facility] HospitalComment on above:Performed By: #### CVDTBH #### [facility] [address] [address] [address] Eliecer Conley. PneumoniaeNot detectedNormalNOT DETECTEDThe [facility]Com[facility] on above:Performed By: #### CVDTBH #### [facility] [address] [address] [address] Eliecer Denisefluenza 1Not detectedNormalNOT DETECTEDThe [facility] HospitalComment on above:Performed By: #### CVDTBH #### [facility] [address] [place] [address] Dr. Eliecer Tapia 2Not detectedNormalNOT DETECTEDThe [facility] HospitalComment on above:Performed By: #### CVDTBH #### [facility] [address] [place] [address] Dr. Eliecer Taipa 3DetectedAbnormalNOT DETECTEDThe [facility] Comment on above:Performed By: #### CVDTBH #### [facility] [address] [place] [address] Dr. Eliecer Tapia 4Not detectedNormalNOT DETECTEDThe [facility] HospitalComment on above:Performed By: #### CVDTBH #### [facility] [address] [place] [address] Dr. Eliecer DasRhino/EnterovirusNot detectedNormalNOT DETECTEDThe [facility]Com[facility] on above:Performed By: #### CVDTBH #### [facility] [address] [place] [address] Dr. Eliecer Gonsales Header 1RESPIRATORY PANEL: VIRUSESGrant Hospital Comment on above:Performed By: #### CVDTBH #### [facility] [address] [place] [address] Dr. Eliecer Gonsales Header 2RESPIRATORY PANEL: BACTERIANoOhioHealth Pickerington Methodist HospitalComment on above:Performed By: #### CVDTBH #### [facility] [address] [place] [address] Dr. Eliecer CarrilloVNot detectedNormalNOT DETECTEDThe [facility] HospitalComment on above:Performed By: #### CVDTBH #### [facility] [address] [place] [address] Dr. Eliecer Cruz-CoV-2 (COVID-19) RNA PELON+probe Ql (Unsp spec)Not detected NormalNOT DETECTEDThe [facility] HospitalComment on above:Performed By: #### CVDTBH #### [facility] [address] [place] [address] Dr. Eliecer Shahid, [facility] SENSITIVITY [id number] pg/mLNormal 4.0-51.3The [facility] HospitalComment on above:Result Comment: CUT-OFF POINTS HAVE BEEN ESTABLISHED BASED ON THE FOURTH UNIVERSAL DEFINITIONS OF MYOCARDIAL INFARCTION. THE UPPER REFERENCE LIMIT (URL) OF TROPONIN, DEFINED THE 99TH PERCENTILE OF cTnI DISTRIBUTION IN A REFERENCE POPULATION, HAS BEEN CONFIRMED THE DECISION THRESHOLD FOR OR DIAGNOSIS.Performed By: #### [email or web address] #### [facility] [address] [place], [place] [id number] Dr. Eliecer Meyer CSPINE WO CONon [id number] [facility] WO CONEXAMINATION: CT CSPINE WO CON HISTORY: Right shoulder [...] Electronically authenticated by: BOBBY JUAREZ Date: 2022-03-01 21:48[facility] HEAD WO CONon [id number] HEAD WO CONStudy: CT HEAD WO CON HISTORY: DISORIENTATION, UNSPECIFIED Technique: CT images of [...] Electronically authenticated by: SURAJ KUNZ Date: 2022-03-01 21:50NoOhioHealth Pickerington Methodist HospitalCovid-19 PCR (CVDTBH)on [id number]-CoV-2 (COVID-19) RNA PELON+probe Ql (Unsp spec)Not detectedNormalNOT DETECTEDHocking Valley Community Hospital Comment on above:Result Comment: When diagnostic testing is negative, the [...] for this test is supported by the [employer] of Health and Human Service's declaration that circumstances exist to justify the emergency use of in vitro diagnostics for the detection and/or diagnosis of the virus that causes COVID-19. This EUA will remain in effect for the duration of the COVID-19 declaration justifying emergency of IVDs, unless it is terminated or revoked by the FDA (after which the test may no longer be used).Performed By: #### POCGLUC #### [facility] [address] [place] [address] Dr. Eliecer Hall URINE PROFILEon [id number] Ql (U)NegativeNormal NEGATIVEHocking Valley Community HospitalComment on above:Performed By: #### URCX #### [facility] [address] [address] [address] Eliecer DasClarity (U)CLEARNormalCLEARHocking Valley Community HospitalComment on above: Performed By: #### URCX #### [facility] [address] [address] [address] Eliecer Pittlor (U)DK. ORANGEAbnormalYELLOWHocking Valley Community HospitalComment on above:Performed By: #### URCX #### [facility] [address] [address] [address] Eliecer Queen micrscopic examination will be performed if indicated. NormalThe [facility] HospitalComment on above:Performed By: #### URCX #### [facility] [address] [place] [address] Dr. Eliecer DasGlucose Ql (U)NegativeNormalNEGATIVEHocking Valley Community HospitalComment on above:Performed By: #### URCX #### [facility] [address] [address] [address] Eliecer DasHemoglobin Ql (U)NegativeNormalNEGCleveland Clinic Avon Hospital on above:Performed By: #### URCX #### [facility] [address] [address] [address] Eliecer DasKetones Ql (U)NegativeNormalNEGATIVEHocking Valley Community HospitalComment on above:Performed By: #### URCX #### [facility] [address] [address] [address] Eliecer DasLEUKOCYTESNegativeNormalNEGATIVEHocking Valley Community HospitalComment on above:Performed By: #### URCX #### [facility] [address] [address] [address] Eliecer DasNitrite Ql (U)NegativeNormalNEGATIVEHocking Valley Community HospitalComment on above:Performed By: #### URCX #### [facility] [address] [address] [address] Eliecer DaspH (U)6.0 [pH]Normal5-9H[facility] HospitalComment on above: Performed By: #### URCX #### [facility] [address] [place] [address] Dr. Eliecer DasSPEC GRAVITY1.304Naaklx4.005-<=1.025The [facility] HospitalComment on above:Performed By: #### URCX #### [facility] [address] [place] [address] Dr. Eliecer Moss PROTEINTRACENormalNEGATIVE/ TRACEThe [facility] HospitalComment on above:Performed By: #### URCX #### [facility] [address] [place] [address] Dr. Eliecer Crowe MICRO INDNOT INDICATEDGrant HospitalComment on above:Performed By: #### URCX #### [facility] [address] [place] [address] Dr. Eliecer Pikebilino Qn (U)1.0 {Narinder'U}/dLNormal0.2 - 1.0The [facility] HospitalComment on above:Performed By: #### URCX #### [facility] [address] [place] [address] Dr. Eliecer DasXR CHEST 1 Von [id number] CHEST 1 VEXAM: XR CHEST 1 V HISTORY: Pain after fall COMPARISON: Chest x-ray 02/13/2022 TECHNIQUE: Portable chest FINDINGS: The lung parenchyma is free of consolidation or infiltrate. No pneumothorax or pleural effusion. The cardiac, mediastinal and hilar contours are normal. Atherosclerosis of the aortic arch. No acute osseous abnormality IMPRESSION: No visualized acute abnormality Electronically authenticated by: BOBBY JUAREZ Date: 2022-03-01 20:[address] [place], [place] [address]XR PELVIS 1_2 VIEWSon [id number] PELVIS 1_2 VIEWSEXAM: XR PELVIS 1_2 VIEWS HISTORY: Pain after fall COMPARISON: None. TECHNIQUE: AP pelvis FINDINGS: No gross fracture, dislocation, subluxation or osseous lesions. The hip joints, pubic symphysis and sacroiliac joints are unremarkable for patient's age. Postoperative changes of the lumbar spine. Small enthesophytes off the tendinous insertions. IMPRESSION: No acute abnormality. Electronically authenticated by: BOBBY JUAREZ Date: 2022-03-01 20:17NoOhioHealth Pickerington Methodist HospitalXR SHOULDER RT 2V or >on [id number] SHOULDER RT 2V or >EXAM: XR SHOULDER RT 2V or > HISTORY: Shoulder pain after fall COMPARISON: None. TECHNIQUE: 3 views FINDINGS: No fracture, dislocation or subluxation. Age-related changes of the acromioclavicular and to lesser degree glenohumeral joint. Spondylitic changes of the cervical and thoracic spine. No visualized rib fracture. The right hemithorax is unremarkable. IMPRESSION: No acute abnormality Electronically authenticated by: BOBBY JUAREZ Date: 2022-03-01 20:18NoOhioHealth Pickerington Methodist HospitalT4 LABCORPon [id number] [Mass/Vol]5.3 ug/dLNormal4.5-12.0H[facility] HospitalComment on above:Performed By: #### BLDCX2 #### [facility] [address] [place] [address] Dr. Eliecer De La Vega AUTO DIFFon [id number] #0.1 103/ulNormal0.0-0.1H[facility] HospitalComment on above:Performed By: #### POCGLUC #### [facility] [address] [place] [address] Dr. Eliecer DasBasophils/100 WBC (Bld)1.2 %Normal0.2-2.0[facility] Comment on above:Performed By: #### POCGLUC #### [facility] [address] [place] [address] Dr. Eliecer Farias #0.3 103/ulNormal0.0-0.7The [facility] HospitalComment on above: Performed By: #### POCGLUC #### [facility] [address] [place] [address] Dr. Eliecer Salasosinophils/100 WBC (Bld)4.6 %Normal0.9-7.0[facility] Comment on above:Performed By: #### POCGLUC #### [facility] [address] [place] [address] Dr. Eliecer Salasrythrocyte distribution width (RBC) [Ratio]13.5 %Lezbll04.0-15.0 The [facility] HospitalComment on above:Performed By: #### POCGLUC #### [facility] [address] [place] [address] Dr. Eliecer DasHematocrit (Bld) [Volume fraction]36.9 %Hyzjft61.0-48.0The [facility] HospitalComment on above:Performed By: #### POCGLUC #### [facility] [address] [place] [address] Dr. Eliecer DasHemoglobin (Bld) [Mass/Vol]12.0 g/jISqwlfy90.0-16.0The [facility] HospitalComment on above:Performed By: #### POCGLUC #### [facility] [address] [place] [address] Dr. Eliecer Swanson #0.02 10e3/ulNormal0.00-0.03The [facility] HospitalComment on above:Performed By: #### POCGLUC #### [facility] [address] [place] [address] Dr. Eliecer Swanson %0.3 %Normal0.0-0.5The [facility] HospitalComment on above: Performed By: #### POCGLUC #### [facility] [address] [place] [address] Dr. Eliecer HardingH #2.1 103/ulNormal1.2-3.8The [facility] HospitalComment on above:Performed By: #### POCGLUC #### [facility] [address] [place] [address] Dr. Eliecer Jonesmphocytes/100 WBC (Bld)35.6 %Szlqll52.5-60.0The [facility] HospitalComment on above:Performed By: #### POCGLUC #### [facility] [address] [place] [address] Dr. Eliecer DasMANUAL DIFF REQNONormalThe [facility] HospitalComment on above: Performed By: #### POCGLUC #### [facility] [address] [address] [address] Eliecer Leonardo (RBC) [Entitic mass]31.2 jrNpqido23.7-34.0The [facility] HospitalComment on above:Performed By: #### POCGLUC #### [facility] [address] [place] [address] Dr. Eliecer Leonardo (RBC) [Mass/Vol]32.5 g/jNHqokyy56.9-35.2The [facility] HospitalComment on above:Performed By: #### POCGLUC #### [facility] [address] [place] [address] Dr. Eliecer Leonardo (RBC) [Entitic vol]95.8 gYRsyvue53.0-99.0The [facility] HospitalComment on above:Performed By: #### POCGLUC #### [facility] [address] [place] [address] Dr. Eliecer Salas #0.7 103/ulNormal0.3-0.8The [facility] HospitalComment on above:Performed By: #### POCGLUC #### [facility] [address] [place] [address] Dr. Eliecer Stuartocytes/100 WBC (Bld)12.4 %Critically high1.7-12.0The [facility] HospitalComment on above:Performed By: #### POCGLUC #### [facility] [address] [place] [address] Dr. Eliecer Rogers #2.7 103/ulNormal1.4-6.5The [facility] HospitalComment on above:Performed By: #### POCGLUC #### [facility] [address] [place] [address] Dr. Eliecer Mckeonutrophils/100 WBC (Bld)45.9 %Cjkeoi41.0-75.0The [facility] HospitalComment on above:Performed By: #### POCGLUC #### [facility] [address] [place] [address] Dr. Eliecer Mcdaniel mean volume (Bld) [Entitic vol]9.4 fLCritically low 9.5-13.5The [facility] HospitalComment on above:Performed By: #### POCGLUC #### [facility] [address] [place] [address] Dr. Eliecer DasPLT183 103/nnOhizyt266-219Qst [facility] HospitalComment on above: Performed By: #### POCGLUC #### [facility] [address] [place] [address] Dr. Eliecer DasRBC3.85 106/ulCritically low4.20-5.40[facility] HospitalComment on above:Performed By: #### POCGLUC #### [facility] [address] [place] [address] Dr. Eliecer DasWBC5.8 103/ulNormal4.0-11.0The [facility] HospitalComment on above: Performed By: #### POCGLUC #### [facility] [address] [place] [address] Dr. Eliecer Devlin URINEon [id number] URINEIsolate 1 Escherichia coli >100,000 cfu/mL of ORGANISM [...] Nitrofurantoin <=16 S F Trimethoprim/Sulfamethoxazole >=320 R FNormalThe [facility] HospitalComment on above:Performed By: #### URCX #### [facility] [address] [place] [address] Dr. Eliecer DasSOU[facility] GLUCOSEon [id number] [Mass/Vol]127 mg/dL Critically wokj62-101Ajg [facility] HospitalComment on above:Performed By: #### [email or web address] #### [facility] [address] [address] [address] Eliecer DasPROF 14(COMP METB)on [id number] [Mass/Vol]2.2 g/dL Critically low3.4-5.0The [facility] HospitalComment on above:Performed By: #### [email or web address] #### [facility] [address] [address] [address] Eliecer DasAlbumin/Globulin [Mass ratio]0.6 {ratio}NormalThe [facility] HospitalComment on above:Performed By: #### [email or web address] #### [facility] [address] [place] [address] Dr. Eliecer AndrewsP [Catalytic activity/Vol]60 U/EBglcwp16-690Got [facility] HospitalComment on above:Performed By: #### [email or web address] #### [facility] [address] [place] [address] Dr. Eliecer AndrewsT [Catalytic activity/Vol]26 U/XZfkjci44-54Qxc [facility] HospitalComment on above:Performed By: #### [email or web address] #### [facility] [address] [address] [address] Eliecer Elias gap [Moles/Vol]10.7 mmol/LNormalThe [facility] Comment on above:Performed By: #### [email or web address] #### [facility] [address] [place] [address] Dr. Eliecer DasAST [Catalytic activity/Vol]31 U/JPzvqef41-96Oav [facility] HospitalComment on above:Performed By: #### [email or web address] #### [facility] [address] [place] [address] Dr. Eliecer DasBilirubin [Mass/Vol]0.7 mg/dLNormal0.2-1.0The [facility] Comment on above:Performed By: #### [email or web address] #### [facility] [address] [place] [address] Dr. Eliecer DasCalcium [Mass/Vol]8.0 mg/dLCritically low8.5-10.1The [facility] HospitalComment on above:Performed By: #### [email or web address] #### [facility] [address] [address] [address] Eliecer DasChloride [Moles/Vol]110 mmol/LCritically iwio59-884Eyc [facility] HospitalComment on above:Performed By: #### [email or web address] #### [facility] [address] [address] [address] Eliecer DasCO2 [Moles/Vol]26.8 mmol/DUdeypi13.0-32.0The [facility] Comment on above:Performed By: #### [email or web address] #### [facility] [address] [address] [address] Eliecer DasCreatinine [Mass/Vol]0.69 mg/dLNormal0.55-1.02The [facility] HospitalComment on above:Performed By: #### [email or web address] #### [facility] [address] [address] [address] Eliecer SalasGFR-AF [place]IZ[place]>60Normal>=60The [facility] HospitalComment on above:Performed By: #### [email or web address] #### [facility] [address] [address] [address] Eliecer SalasGFR-NON AF [place]IZ[place]>60Normal>=60The [facility] HospitalComment on above:Performed By: #### [email or web address] #### [facility] [address] [address] [address] Eliecer DasGlobulin (S) [Mass/Vol]3.4 g/dLNormalThe [facility] HospitalComment on above:Performed By: #### [email or web address] #### [facility] [address] [address] [address] Eliecer DasGlucose [Mass/Vol]123 mg/dLCritically szcr95-914Nyu [facility] HospitalComment on above:Performed By: #### [email or web address] #### [facility] [address] [address] [address] Eliecer DasPotassium [Moles/Vol]3.5 mmol/LNormal3.5-5.1The [facility] Comment on above:Performed By: #### [email or web address] #### [facility] [address] [place] [address] Dr. Eliecer DasProtein [Mass/Vol]5.6 g/dLCritically low6.4-8.2The [facility] HospitalComment on above:Performed By: #### [email or web address] #### [facility] [address] [place] [address] Dr. Eliecer Costadium [Moles/Vol]144 mmol/HGfjlro849-189Npj [facility] Comment on above:Performed By: #### [email or web address] #### [facility] [address] [place] [address] Dr. Eliecer DasUrea nitrogen [Mass/Vol]9.0 mg/dLNormal7.0-18.0[facility] HospitalComment on above:Performed By: #### [email or web address] #### [facility] [address] [place] [address] Dr. Eliecer Juan nitrogen/Creatinine [Mass ratio]13.0 mg/mgNormalThe [facility] HospitalComment on above:Performed By: #### [email or web address] #### [facility] [address] [place] [address] Dr. Eliecer De La Vega AUTO DIFFon [id number] #0.1 103/ulNormal0.0-0.1[facility] HospitalComment on above:Performed By: #### [email or web address] #### [facility] [address] [place] [address] Dr. Eliecer DasBaeliasphils/100 WBC (Bld)1.0 %Normal0.2-2.0[facility] Comment on above:Performed By: #### [email or web address] #### [facility] [address] [place] [address] Dr. Eliecer Farias #0.3 103/ulNormal0.0-0.7The [facility] HospitalComment on above: Performed By: #### [email or web address] #### [facility] [address] [place] [address] Dr. Yilan ChangEosinophils/100 WBC (Bld)4.4 %Normal0.9-7.0[facility] Comment on above:Performed By: #### [email or web address] #### [facility] [address] [place] [address] Dr. Eliecer Salasrythrocyte distribution width (RBC) [Ratio]13.6 %Txhvmf09.0-15.0 The [facility] HospitalComment on above:Performed By: #### [email or web address] #### [facility] [address] [place] [address] Dr. Eliecer DasHematocrit (Bld) [Volume fraction]38.4 %Xolscl83.0-48.0The [facility] HospitalComment on above:Performed By: #### [email or web address] #### [facility] [address] [place] [address] Dr. Eliecer DasHemoglobin (Bld) [Mass/Vol]12.3 g/uCDcimsc31.0-16.0The [facility] HospitalComment on above:Performed By: #### [email or web address] #### [facility] [address] [place] [address] Dr. Eliecer Swanson #0.04 10e3/ulCritically high0.00-0.03The [facility] Comment on above:Performed By: #### [email or web address] #### [facility] [address] [place] [address] Dr. Eliecer Swanson %0.7 %Critically high0.0-0.5The [facility] HospitalComment on above:Performed By: #### [email or web address] #### [facility] [address] [place] [address] Dr. Eliecer JonesMPH #2.5 103/ulNormal1.2-3.8The [facility] HospitalComment on above:Performed By: #### [email or web address] #### [facility] [address] [place] [address] Dr. Eliecer Jonesmphocytes/100 WBC (Bld)40.7 %Hibpac84.5-60.0The [facility] HospitalComment on above:Performed By: #### [email or web address] #### [facility] [address] [place] [address] Dr. Eliecer Benson DIFF REQNONormalThe [facility] HospitalComment on above: Performed By: #### [email or web address] #### [facility] [address] [place] [address] Dr. Eliecer Leonardo (RBC) [Entitic mass]30.7 tkTkgsfh24.7-34.0The [facility] HospitalComment on above:Performed By: #### [email or web address] #### [facility] [address] [place] [address] Dr. Eliecer Leonardo (RBC) [Mass/Vol]32.0 g/yVAyhoxu85.9-35.2The [facility] HospitalComment on above:Performed By: #### [email or web address] #### [facility] [address] [place] [address] Dr. Eliecer Leonardo (RBC) [Entitic vol]95.8 oXXsqgrl01.0-99.0The [facility] HospitalComment on above:Performed By: #### [email or web address] #### [facility] [address] [place] [address] Dr. Eliecer Salas #0.7 103/ulNormal0.3-0.8The [facility] HospitalComment on above:Performed By: #### [email or web address] #### [facility] [address] [place] [address] Dr. Eliecer Stuartocytes/100 WBC (Bld)11.5 %Normal1.7-12.0The [facility] Comment on above:Performed By: #### [email or web address] #### [facility] [address] [place] [address] Dr. Eliecer Rogers #2.6 103/ulNormal1.4-6.5The [facility] HospitalComment on above:Performed By: #### [email or web address] #### [facility] [address] [place] [address] Dr. Eliecer Mckeonutrophils/100 WBC (Bld)41.7 %Critically low43.0-75.0The [facility] HospitalComment on above:Performed By: #### [id number] #### [facility] [address] [place] [address] Dr. Eliecer Shooklet mean volume (Bld) [Entitic vol]9.5 fLNormal9.5-13.5The [facility] HospitalComment on above:Performed By: #### [email or web address] #### [facility] [address] [place] [address] Dr. Eliecer DasPLT215 103/zkAibasc940-433Dul [facility] HospitalComment on above: Performed By: #### [email or web address] #### [facility] [address] [place] [address] Dr. Eliecer DasRBC4.01 106/ulCritically low4.20-5.40The [facility] HospitalComment on above:Performed By: #### [email or web address] #### [facility] [address] [place] [address] Dr. Eliecer DasWBC6.1 103/ulNormal4.0-11.0The [facility] HospitalComment on above: Performed By: #### [email or web address] #### [facility] [address] [place] [address] Dr. Eliecer DasS[facility] GLUCOSEon [id number] [Mass/Vol]100 mg/dL Xljwhj05-508Smr [facility] HospitalComment on above:Performed By: #### URCX #### [facility] [address] [place] [address] Dr. Eliecer DasGlucose [Mass/Vol]95 mg/jGPgbykb36-343Xuj [facility] Comment on above:Performed By: #### [email or web address] #### [facility] [address] [place] [address] Dr. Eliecer DasGlucose [Mass/Vol]107 mg/dLCritically eopj49-020Yid [facility] HospitalComment on above:Performed By: #### [email or web address] #### [facility] [address] [place] [address] Dr. Eliecer DasGlucose [Mass/Vol]194 mg/dLCritically dcya90-474Aha [facility] HospitalComment on above:Performed By: #### CVDTBH #### [facility] [address] [place] [address] Dr. Eliecer DasGlucose [Mass/Vol]105 mg/wXIvwgvw56-947HujHocking Valley Community Hospital Comment on above:Performed By: #### [email or web address] #### [facility] [address] [place] [address] Dr. Eliecer DasPROF 14(COMP METB)on 59-84-1500Bxedkiw [Mass/Vol]2.2 g/dL Critically low3.4-5.0The [facility] HospitalComment on above:Performed By: #### URCX #### [facility] [address] [place] [address] Dr. Eliecer DasAlbumin/Globulin [Mass ratio]0.6 {ratio}NormalThe [facility] HospitalComment on above:Performed By: #### URCX #### [facility] [address] [place] [address] Dr. Eliecer Mallory [Catalytic activity/Vol]56 U/KRrvqrb43-021Sxe [facility] HospitalComment on above:Performed By: #### URCX #### [facility] [address] [place] [address] Dr. Eliecer Conley [Catalytic activity/Vol]30 U/JTuduqj40-24Brz [facility] HospitalComment on above:Performed By: #### URCX #### [facility] [address] [place] [address] Dr. Eliecer Elias gap [Moles/Vol]12.2 mmol/LNormalThe [facility] Comment on above:Performed By: #### URCX #### [facility] [address] [place] [address] Dr. Eliecer DasAST [Catalytic activity/Vol]43 U/LCritically xpgz35-22Vre [facility] Centerment on above:Performed By: #### URCX #### [facility] [address] [address] [address] Eliecer DasBilirubin [Mass/Vol]1.5 mg/dLCritically high0.2-1.0The [facility] Centerment on above:Performed By: #### URCX #### [facility] [address] [place] [address] Dr. Eliecer DasCalcium [Mass/Vol]8.1 mg/dLCritically low8.5-10.1The [facility] HospitalComment on above:Performed By: #### URCX #### [facility] [address] [place] [address] Dr. Eliecer DasChloride [Moles/Vol]110 mmol/LCritically axwc03-329Xsc [facility] on above:Performed By: #### URCX #### [facility] [address] [place] [address] Dr. Eliecer DasCO2 [Moles/Vol]26.7 mmol/PHniqnt13.0-32.0The [facility] Comment on above:Performed By: #### URCX #### [facility] [address] [place] [address] Dr. Eliecer DasCreatinine [Mass/Vol]0.71 mg/dLNormal0.55-1.02The [facility] on above:Performed By: #### URCX #### [facility] [address] [place] [address] Dr. Eliecer SalasGFR-AF [place]>60Normal>=60The [facility] on above:Performed By: #### URCX #### [facility] [address] [place] [address] Dr. Eliecer SalasGFR-NON AF [place]>60Normal>=60The [facility] Centerment on above:Performed By: #### URCX #### [facility] [address] [place] [address] Dr. Eliecer DasGlobulin (S) [Mass/Vol]3.5 g/dLNormalThe [facility] HospitalComment on above:Performed By: #### URCX #### [facility] [address] [address] [address] Eliecer DasGlucose [Mass/Vol]82 mg/rIAmfjdi66-060Xrm [facility] Comment on above:Performed By: #### URCX #### [facility] [address] [address] [address] Eliecer DasPotassium [Moles/Vol]3.9 mmol/LNormal3.5-5.1The [facility] Comment on above:Performed By: #### URCX #### [facility] [address] [address] [address] Eliecer DasProtein [Mass/Vol]5.7 g/dLCritically low6.4-8.2The [facility] HospitalComment on above:Performed By: #### URCX #### [facility] [address] [place] [address] Dr. Eliecer DasSodium [Moles/Vol]145 mmol/JAwdlxm464-082Dik [facility] Comment on above:Performed By: #### URCX #### [facility] [address] [place] [address] Dr. Eliecer DasUrea nitrogen [Mass/Vol]8.0 mg/dLNormal7.0-18.0The [facility] HospitalComment on above:Performed By: #### URCX #### [facility] [address] [place] [address] Dr. Eliecer DasUrea nitrogen/Creatinine [Mass ratio]11.3 mg/mgNoOhioHealth Pickerington Methodist HospitalComment on above:Performed By: #### URCX #### [facility] [address] [place] [address] Dr. Eliecer Salmeron 85-99-9628VRQ7.050 uIU/mLNormal0.358-3.740[facility] HospitalComment on above:Performed By: #### URCX #### [facility] [address] [place] [address] Dr. Eliecer Noel RANGESEE BELOWGrant HospitalComment on above: Result Comment: <0.34 UIU/ml HYPERTHYROID 0.34-5.60 UIU/ml EUTHYROID >5.60 UIU/ml HYPOTHYROIDPerformed By: #### URCX #### [facility] [address] [place] [address] Dr. Eliecer Stafford 37-17-7099Gzjgxvrcbpx peptide B (Bld) [Mass/Vol]87.0 pg/mL Normal<=1,800.0The [facility] HospitalComment on above:Performed By: #### [id number] #### [facility] [address] [place] [address] Dr. Eliecer De La Vega AUTO DIFFon 67-27-1782QRUQ #0.1 103/ulNormal0.0-0.1The [facility] HospitalComment on above:Performed By: #### POCGLUC #### [facility] [address] [place] [address] Dr. Eliecer DasBasophils/100 WBC (Bld)1.4 %Normal0.2-2.0[facility] Comment on above:Performed By: #### POCGLUC #### [facility] [address] [place] [address] Dr. Eliecer Farias #0.2 103/ulNormal0.0-0.7The [facility] HospitalComment on above: Performed By: #### POCGLUC #### [facility] [address] [place] [address] Dr. Eliecer Salasosinophils/100 WBC (Bld)3.8 %Normal0.9-7.0[facility] Comment on above:Performed By: #### POCGLUC #### [facility] [address] [place] [address] Dr. Eliecer Salasrythrocyte distribution width (RBC) [Ratio]13.6 %Izcmqg70.0-15.0 [facility] HospitalComment on above:Performed By: #### POCGLUC #### [facility] [address] [place] [address] Dr. Eliecer DasHematocrit (Bld) [Volume fraction]46.3 %Hhzylx89.0-48.0The [facility] HospitalComment on above:Performed By: #### POCGLUC #### [facility] [address] [place] [address] Dr. Eliecer DasHemoglobin (Bld) [Mass/Vol]14.8 g/qRYsffwo76.0-16.0The [facility] HospitalComment on above:Performed By: #### POCGLUC #### [facility] [address] [place] [address] Dr. Eliecer Swanson #0.03 10e3/ulNormal0.00-0.03The [facility] HospitalComment on above:Performed By: #### POCGLUC #### [facility] [address] [place] [address] Dr. Eliecer Swanson %0.5 %Normal0.0-0.5The [facility] HospitalComment on above: Performed By: #### POCGLUC #### [facility] [address] [place] [address] Dr. Eliecer Mccann #1.8 103/ulNormal1.2-3.8The [facility] HospitalComment on above:Performed By: #### POCGLUC #### [facility] [address] [place] [address] Dr. Eliecer Hardinghocytes/100 WBC (Bld)28.2 %Hzdeac23.5-60.0The [facility] HospitalComment on above:Performed By: #### POCGLUC #### [facility] [address] [place] [address] Dr. Eliecer LukeUAL DIFF REQNONormalThe [facility] HospitalComment on above: Performed By: #### POCGLUC #### [facility] [address] [place] [address] Dr. Eliecer Rodriguez (RBC) [Entitic mass]31.1 nlWzuweg86.7-34.0The [facility] HospitalComment on above:Performed By: #### POCGLUC #### [facility] [address] [place] [address] Dr. Eliecer LeonardoHC (RBC) [Mass/Vol]32.0 g/pFLwdpty39.9-35.2The [facility] HospitalComment on above:Performed By: #### POCGLUC #### [facility] [address] [place] [address] Dr. Eliecer Denson (RBC) [Entitic vol]97.3 cETygtgw31.0-99.0The [facility] HospitalComment on above:Performed By: #### POCGLUC #### [facility] [address] [place] [address] Dr. Eliecer Salas #0.6 103/ulNormal0.3-0.8The [facility] HospitalComment on above:Performed By: #### POCGLUC #### [facility] [address] [place] [address] Dr. Eliecer Stuartocytes/100 WBC (Bld)9.1 %Normal1.7-12.0The [facility] Comment on above:Performed By: #### POCGLUC #### [facility] [address] [place] [address] Dr. Eliecer Rogers #3.6 103/ulNormal1.4-6.5The [facility] HospitalComment on above:Performed By: #### POCGLUC #### [facility] [address] [place] [address] Dr. Eliecer Mckeonutrophils/100 WBC (Bld)57.0 %Ledsgu67.0-75.0The [facility] HospitalComment on above:Performed By: #### POCGLUC #### [facility] [address] [place] [address] Dr. Eliecer Shooklet mean volume (Bld) [Entitic vol]9.4 fLCritically low 9.5-13.5The [facility] HospitalComment on above:Performed By: #### POCGLUC #### [facility] [address] [place] [address] Dr. Eliecer GonsalesT239 103/uuPhtily299-432Vho [facility] HospitalComment on above: Performed By: #### POCGLUC #### [facility] [address] [place] [address] Dr. Eliecer DasRBC4.76 106/ulNormal4.20-5.40The [facility] HospitalComment on above:Performed By: #### POCGLUC #### [facility] [address] [place] [address] Dr. Eliecer DasWBC6.3 103/ulNormal4.0-11.0The [facility] HospitalComment on above: Performed By: #### POCGLUC #### [facility] [address] [place] [address] Dr. Eliecer DasCULTURE BLOODon [id number] examination of blood, cultureCulture Observations: NO GROWTH AT 5 DAYS.NormalThe [facility] HospitalComment on above:Performed By: #### [id number] #### [facility] [address] [place] [address] Dr. Eliecer DasMicroscopic examination of blood, cultureCulture Observations: NO GROWTH AT 5 DAYS.NormalThe [facility] HospitalComment on above:Performed By: #### CVDTBH #### [facility] [address] [place] [address] Dr. Eliecer DasCovid-19 PCR ([facility])on [id number]-CoV-2 (COVID-19) RNA PELON+probe Ql (Unsp spec)Not detectedNormalNOT DETECTEDThe [facility] Comment on above:Result Comment: When diagnostic testing is negative, the [...] for this test is supported by the [employer] of Health and Human Service's declaration that circumstances exist to justify the emergency use of in vitro diagnostics for the detection and/or diagnosis of the virus that causes COVID-19. This EUA will remain in effect for the duration of the COVID-19 declaration justifying emergency of IVDs, unless it is terminated or revoked by the FDA (after which the test may no longer be used).Performed By: #### URCX #### [facility] [address] [place] [address] Dr. Eliecer Hall URINE PROFILEon 04-34-5813Avdjinmcu Ql (U)NegativeNormal NEGATIVEHocking Valley Community HospitalComment on above:Performed By: #### POCGLUC #### [facility] [address] [address] [address] Eliecer Jeongarity (U)CLEARNormalCLEARHocking Valley Community HospitalComment on above: Performed By: #### POCGLUC #### [facility] [address] [place] [address] Dr. Eliecer Pittlor (U)YELLOWNormalYELLOWHocking Valley Community HospitalComment on above: Performed By: #### POCGLUC #### [facility] [address] [place] [address] Dr. Eliecer Queen micrscopic examination will be performed if indicated. NormalHocking Valley Community HospitalComment on above:Performed By: #### POCGLUC #### [facility] [address] [place] [address] Dr. Eliecer DasGlucose Ql (U)NegativeNormalNEGATIVEHocking Valley Community HospitalComment on above:Performed By: #### POCGLUC #### [facility] [address] [place] [address] Dr. Eliecer DasHemoglobin Ql (U)NegativeNormalNEGATIVESumma Health Barber[facility] Campus on above:Performed By: #### POCGLUC #### [facility] [address] [place] [address] Dr. Eliecer DasKetones Ql (U)NegativeNormalNEGATIVEHocking Valley Community HospitalComment on above:Performed By: #### POCGLUC #### [facility] [address] [place] [address] Dr. Eliecer DasLEUKOCYTESTRACEAbnormalNEGATIVEHocking Valley Community HospitalComment on above:Performed By: #### POCGLUC #### [facility] [address] [place] [address] Dr. Eliecer Pulido Ql (U)PositiveAbnormalNEGATIVEHocking Valley Community Hospital Comment on above:Performed By: #### POCGLUC #### [facility] [address] [place] [address] Dr. Eliecer DaspH (U)5.5 [pH]Normal5-9The [facility] HospitalComment on above: Performed By: #### POCGLUC #### [facility] [address] [place] [address] Dr. Eliecer DasSPEC GRAVITY1.996Drdwee2.005-<=1.025The [facility] HospitalComment on above:Performed By: #### POCGLUC #### [facility] [address] [place] [address] Dr. Eliecer Moss PROTEINNegativeNormalNEGATIVE/ TRACEThe [facility] Comment on above:Performed By: #### POCGLUC #### [facility] [address] [place] [address] Dr. Eliecer Crowe MICRO INDINDICATEDNormalThe [facility] HospitalComment on above: Performed By: #### POCGLUC #### [facility] [address] [place] [address] Dr. Eliecer Pikebilino Qn (U)0.2 {Narinder'U}/dLNormal0.2 - 1.0[facility] HospitalComment on above:Performed By: #### POCGLUC #### [facility] [address] [place] [address] Dr. Eliecer DurantCTATE/LACTIC ACIDon 66-11-3039Sfztaja [Moles/Vol]2.1 mmol/L Critically high0.4-1.9The [facility] HospitalComment on above:Performed By: #### [email or web address] #### [facility] [address] [place] [address] Dr. Eliecer DasLactate [Moles/Vol]2.5 mmol/LCritically high0.4-1.9The [facility] HospitalComment on above:Performed By: #### [email or web address] #### [facility] [address] [address] [address] Eliecer DasPOINT OF CARE GLUCOSEon 88-87-6889Xowcxhw [Mass/Vol]131 mg/dL Critically qcmi07-306Cxc [facility] HospitalComment on above:Performed By: #### [email or web address] #### [facility] [address] [address] [address] Eliecer DasPROF 14(COMP METB)on [id number] [Mass/Vol]2.8 g/dL Critically low3.4-5.0The [facility] HospitalComment on above:Performed By: #### BLDCX2 #### [facility] [address] [address] [address] Eliecer DasAlbumin/Globulin [Mass ratio]0.6 {ratio}NormalThe [facility] HospitalComment on above:Performed By: #### BLDCX2 #### [facility] [address] [address] [address] Eliecer Mallory [Catalytic activity/Vol]75 U/CYhbbzt40-291Zcs [facility] HospitalComment on above:Performed By: #### BLDCX2 #### [facility] [address] [address] [address] Eliecer Conley [Catalytic activity/Vol]33 U/FXyhxqf76-79Ovx [facility] HospitalComment on above:Performed By: #### BLDCX2 #### [facility] [address] [address] [address] Eliecer Elias gap [Moles/Vol]10.5 mmol/LNormalThe [facility] Comment on above:Performed By: #### BLDCX2 #### [facility] [address] [address] [address] Eliecer DasAST [Catalytic activity/Vol]52 U/LCritically zfny49-03Imo [facility] HospitalComment on above:Performed By: #### BLDCX2 #### [facility] [address] [place] [address] Dr. Eliecer DasBilirubin [Mass/Vol]1.9 mg/dLCritically high0.2-1.0The [facility] HospitalComment on above:Performed By: #### BLDCX2 #### [facility] [address] [place] [address] Dr. Eliecer DasCalcium [Mass/Vol]9.5 mg/dLNormal8.5-10.1[facility] Comment on above:Performed By: #### BLDCX2 #### [facility] [address] [address] [address] Eliecer DasChloride [Moles/Vol]107 mmol/IGczpmd69-192Bis [facility] Comment on above:Performed By: #### BLDCX2 #### [facility] [address] [place] [address] Dr. Eliecer DasCO2 [Moles/Vol]27.4 mmol/MHdspfk73.0-32.0[facility] Comment on above:Performed By: #### BLDCX2 #### [facility] [address] [place] [address] Dr. Eliecer DasCreatinine [Mass/Vol]0.86 mg/dLNormal0.55-1.02The [facility] HospitalComment on above:Performed By: #### BLDCX2 #### [facility] [address] [place] [address] Dr. Eliecer SalasGFR-AF [place]>60Normal>=60The [facility] HospitalComment on above:Performed By: #### BLDCX2 #### [facility] [address] [place] [address] Dr. Eliecer SalasGFR-NON AF [place]>60Normal>=60[facility] HospitalComment on above:Performed By: #### BLDCX2 #### [facility] [address] [place] [address] Dr. Eliecer DasGlobulin (S) [Mass/Vol]4.4 g/dLNormalThe [facility] HospitalComment on above:Performed By: #### BLDCX2 #### [facility] [address] [place] [address] Dr. Eliecer DasGlucose [Mass/Vol]136 mg/dLCritically bfiy81-774Omr Sarles HospitalComment on above:Performed By: #### BLDCX2 #### [facility] [address] [place] [address] Dr. Eliecer DasPotassium [Moles/Vol]3.9 mmol/LNormal3.5-5.1[facility] Comment on above:Performed By: #### BLDCX2 #### [facility] [address] [place] [address] Dr. Eliecer DasProtein [Mass/Vol]7.2 g/dLNormal6.4-8.2[facility] Comment on above:Performed By: #### BLDCX2 #### [facility] [address] [place] [address] Dr. Eliecer Costadium [Moles/Vol]141 mmol/SFxfrqb227-982OarHocking Valley Community Hospital Comment on above:Performed By: #### [email or web address] #### [facility] [address] [place] [address] Dr. Eliecer DasUrea nitrogen [Mass/Vol]10.0 mg/dLNormal7.0-18.0[facility] HospitalComment on above:Performed By: #### [email or web address] #### [facility] [address] [place] [address] Dr. Eliecer Juan nitrogen/Creatinine [Mass ratio]11.6 mg/mgNoOhioHealth Pickerington Methodist HospitalComment on above:Performed By: #### [email or web address] #### [facility] [address] [place] [address] Dr. Eliecer Gann [id number] Coag (PPP) [Relative time]1.16 {INR} NormalHocking Valley Community HospitalComment on above:Performed By: #### [email or web address] #### [facility] [address] [place] [address] Dr. Eliecer Michel GUIDELINESSEE BELOWGrant HospitalComment on above:Result Comment: DESIRED INR: 2.0 - 3.0 CONDITIONS NOT LISTED BELOW 2.5 - 3.5 FOR PROSTHETIC HEART VALVE REPLACEMENT 2.5 - 3.5 RECURRENT THROMBOSIS Performed By: #### [email or web address] #### [facility] [address] [place] [address] Dr. Eliecer Brady Coag (PPP) [Time]12.4 sCritically high9.0-11.6The [facility] on above:Performed By: #### [email or web address] #### [facility] [address] [place] [address] Dr. Eliecer Shahid, HIGH SENSITIVITYon 72-19-5535OJSZMF2.4 pg/mLNormal 4.0-51.3The [facility] on above:Result Comment: CUT-OFF POINTS HAVE BEEN ESTABLISHED BASED ON THE FOURTH UNIVERSAL DEFINITIONS OF MYOCARDIAL INFARCTION. THE UPPER REFERENCE LIMIT (URL) OF TROPONIN, DEFINED THE 99TH PERCENTILE OF cTnI DISTRIBUTION IN A REFERENCE POPULATION, HAS BEEN CONFIRMED THE DECISION THRESHOLD FOR OR DIAGNOSIS.Performed By: #### [email or web address] #### [facility] [address] [place] [address] Dr. Eliecer Ontiveros MICROSCOPIC ONLYon [id number]P SEEN [facility] HospitalComasc[facility] on above:Performed By: #### POCGLUC #### [facility] [address] [place] [address] Dr. Eliecer Mcgill identified Cx Nom (U)INDICATEDNoTriHealth Good [facility] on above:Performed By: #### POCGLUC #### [facility] [address] [place] [address] Dr. Eliecer Clifford SEENNormalNONE SEENProvidence Hospital on above:Performed By: #### POCGLUC #### [facility] [address] [place] [address] Dr. Eliecer Gonzáles LM Nom (Urine sed)NONE SEENNormalNONE SEENProvidence Hospital on above:Performed By: #### POCGLUC #### [facility] [address] [place] [address] Dr. Gonzáles ChangEpithelial cells LM Ql (Urine sed)FEWAbnormalNONE SEEN /RAREThe [facility] on above:Performed By: #### POCGLUC #### [facility] [address] [address] [address] Eliecer DasMUCOUSNINA SEENNormalNONE SEENHocking Valley Community HospitalComment on above:Performed By: #### POCGLUC #### [facility] [address] [address] [address] Eliecer DasYhbqiLRH3-8Ppuouk6-4Emx [facility] HospitalComment on above:Performed By: #### POCGLUC #### [facility] [address] [address] [address] Gonzáles ChangWBC5-10AbnormalNONE SEENThe [facility] HospitalComment on above: Performed By: #### POCGLUC #### [facility] [address] [address] [address] Eliecer DasXR CHEST 1 Von 27-85-3943ZW CHEST 1 VEXAMINATION: XR CHEST 1 V HISTORY: SHORTNESS OF BREATH COMPARISON: [...] Electronically authenticated by: BOBBY RAMACHANDRAN Date: 2022-02-13 13:21NoOhioHealth Pickerington Methodist HospitalA1C HEMOGLOBINon 59-32-9987EaL8z (Bld) [Mass fraction]5.3 % Outline Other HbA1c (Bld) [Mass fraction]on 45-51-2624Q2I HEMOGLOBIN Outline Other a1c HEMOGLOBINon 92-93-4288WpT6p (Bld) [Mass fraction] 5.5 %Outline Other HbA1c (Bld) [Mass fraction]on 45-25-1974A8O HEMOGLOBIN Outline Other COVID Quick Testingon 56-88-7444UzxsodFaxpzhreNadyx Coast RevolucionaTuPrecio.com Other Vital Signs Date TimeVital SignValuePerforming MmaezuufpVggsjeqw86-77-4370 14:24-0500Body uuvmwo840.4 cmAnthony Rusher DPM Work Phone: [phone]11-03-2025 14:24-0500Body mass index (BMI) [Ratio]34.96 kg/r7Sazuabm Rusher DPM Work Phone: [phone] [place], [place] 5372611-03-2025 14:24-0500Body gbjtwy35.19 kgAnthony Rusher DPM Work Phone: [phone] [place], [place] 5372610-13-2025 10:13-0400Body twvjie017.4 cmAnthony Rusher DPM Work Phone: [phone] [place], [place] 5372610-13-2025 10:13-0400Body mass index (BMI) [Ratio]34.96 kg/n2Djuoccj Rusher DPM Work Phone: [phone] [place], [place] 5372610-13-2025 10:13-0400Body bxdfic92.19 kgAnthony Rusher DPM Work Phone: [phone] [place], [place] 5372609-29-2025 13:40-0400Body .4 cmAnthony Rusher DPM Work Phone: [phone] [place], [place] 5372609-29-2025 13:40-0400Body mass index (BMI) [Ratio]34.96 kg/p1Jycfujh Rusher DPM Work Phone: [phone] [place] [address]-29-2025 13:40-0400Body sqsont27.19 kgAnthony Rusher DPM Work Phone: [phone] [place], [place] 5372609-23-2025 14:21-0400Body .24 cmFatoumata Chase MD Work Phone: [facility]09-23-2025 14:21-0400 Body mass index (BMI) [Ratio]41 kg/m2LszqgwFatoumata Chase MD Work Phone: [facility]09-23-2025 14:21-0400 Body havxzh70 kgFatoumata Chase MD Work Phone: [facility]09-23-2025 14:21-0400 Diastolic blood onafkkpa05 mm[Hg]Fatoumata Chase MD Work Phone: [facility]09-23-2025 14:21-0400 Heart rate66 /minFatoumata Chase MD Work Phone: [facility]09-23-2025 14:21-0400 Systolic blood mnodqmgg452 mm[Hg]Fatoumata Chase MD Work Phone: [facility]03-24-2025 13:03-0400 Body fkidzx142.24 cmMad[facility]03-24-2025 13:03-0400Body mass index (BMI) [Ratio]38.3 kg/a9GcxsqdqrlMad[facility] Health03-24-2025 13:03-0400Body .64 kgMad[facility]03-24-2025 13:03-0400Diastolic blood dhhnodhu66 mm[Hg][facility] 12-07-2024 13:03-0400Heart rate66 /[facility] 12-07-2024 13:03-0400Respiratory rate12 /[facility] 12-07-2024 13:03-3946UoV7% (BldA) [Mass fraction]99 %[facility]03-24-2025 13:03-0400Systolic blood klrpyybu255 mm[Hg][facility]09-23-2024 13:02-0400Body xakgzr870.24 cmMad[facility]09-23-2024 13:02-0400Body mass index (BMI) [Ratio]39.4 kg/m2 [facility]09-23-2024 13:02-0400Body udubaf92.83 kg [facility]09-23-2024 13:02-0400Diastolic blood qxufvdyi79 mm[Hg][facility]09-23-2024 13:02-0400Heart rate55 /min [facility]09-23-2024 13:02-0400Systolic blood nfjkcogp795 mm[Hg][facility]06-20-2024 13:04-0400Body stxuhw013.24 cmMad[facility]06-20-2024 13:04-0400Body mass index (BMI) [Ratio]37.8 kg/c5YglcpaoinMad[facility] Health06-20-2024 13:040400Body ujliyt16.65 kgMad[facility]06-20-2024 13:04-0400Diastolic blood xeyghfvq28 mm[Hg][facility]06-20-2024 13:04-0400 Heart rate73 /[facility]06-20-2024 13:0400Systolic blood fxjgyrcw994 mm[Hg][facility]05-14-2024 11:23-0400 Body kysgnd918.24 cmMad[facility]05-14-2024 11:23-0400Body mass index (BMI) [Ratio]36.1 kg/q0XnavuqjzdMadison Health05-14-2024 11:23-0400Body auqsesfoxwl82 [degF][facility]05-14-2024 11:23-0400Body qeedje89.02 kgMad[place] [facility]05-14-2024 11:23-0400Diastolic blood ryapdcmp93 mm[Hg][facility] 01-28-2024 11:23-0400Heart rate69 /[facility] 01-28-2024 11:23-0400Respiratory rate20 /[facility] 01-28-2024 11:23-8031OsD4% (BldA) [Mass fraction]95 %[facility]05-14-2024 11:23-0400Systolic blood mowcwhod403 mm[Hg][facility]04-17-2024 10:42-0400Body qlatlp398.51 cmMad[facility]04-17-2024 10:42-0400Body mass index (BMI) [Ratio]35.6 kg/m2 [facility]04-17-2024 10:42-0400Body vtyjbc13.48 kg [facility]04-17-2024 10:42-0400Diastolic blood uzxclkoy14 mm[Hg][facility]04-17-2024 10:42-0400Heart rate66 /min [facility]04-17-2024 10:42-0400Systolic blood edrwbsix718 mm[Hg][facility]03-18-2024 13:38-0400Body widpzh578.51 cmMad[facility]03-18-2024 13:38-0400Body mass index (BMI) [Ratio]36.3 kg/j1BajhaemneMad[place] Health03-18-2024 13:38-0400Body .84 kgMad[facility]03-18-2024 13:38-0400Diastolic blood panyrvmu78 mm[Hg][facility]03-18-2024 13:38-0400 Heart rate67 /minMad[facility] Health03-18-2024 13:38-0400Systolic blood zjislxty937 mm[Hg][facility]11-16-2023 14:30-0500 Body bkpcob317.51 cmFatoumata Chase Other Outline Other 11-16-2023 14:30-0500Body mass index (BMI) [Ratio]35.9 kg/e7VnsplnFatoumata Chase Other Outline Other 11-16-2023 14:30-0500Body .94 kgFatoumata Chase Other Outline Other 11-16-2023 14:30-0500Diastolic blood tqfsuttp97 mm[Hg] Fatoumata Chase Other Outline Other 11-16-2023 14:30-0500Systolic blood uyznpxgz153 mm[Hg] Fatoumata Chase Other Outline Other 11-08-2023 13:00-0500Body vnyobd348.51 cmJennifer Rohrbacher Other Outline Other 11-08-2023 13:00-0500Body mass index (BMI) [Ratio] 35.68 kg/k6CzgctdavMorena Santanadarlin Other Outline Other 11-08-2023 13:00-0500Body vkwbefcmybb86 [degF]Morena Pisanowyatt Other Outline Other 11-08-2023 13:00-0500Body sylagj55.48 kgMorena Vera Other Outline Other 11-08-2023 13:00-0500Diastolic blood jfuoigvh63 mm[Hg] Morena Chuy Other Outline Other 11-08-2023 13:00-5001CfF7% (BldA) [Mass fraction]97 % Morena Chuy Other Outline Other 11-08-2023 13:00-0500Systolic blood rfwzrboc559 mm[Hg] Morena Chuy Other Outline Other 10-31-2023 15:45-0400Body ewpnkf439.51 cmMylenecia Salvatore Other [employer] Other 10-31-2023 15:45-0400Body mass index (BMI) [Ratio]37 kg/w1Penvc Elif Other Outline Other 10-31-2023 15:45-0400Body qkgrdvavamb76.6 [degF]Staci Elif Other Outline Other 10-31-2023 15:45-0400Body rtwuwl78.2 kgHeidi Elif Other Outline Other 10-31-2023 15:45-0400Diastolic blood oyohsxqm94 mm[Hg] Staci Elif Other Outline Other 10-31-2023 15:45-0400Respiratory rate20 /minHeidi Elif Other Outline Other 10-31-2023 15:45-6738XeQ2% (BldA) [Mass fraction]99 % Staci Elif Other Outline Other 10-31-2023 15:45-0400Systolic blood sxyfxijb451 mm[Hg] Staci Elif Other Outline Other 10-31-2023 11:00-0400Body mass index (BMI) [Ratio] 36.69 kg/m1KmruqoFatoumata Chase Other [employer] Other 10-31-2023 11:00-0400Body bxxxsa03.57 kgFatoumata Chase Other Outline Other 10-31-2023 11:00-0400Diastolic blood ayrkpcue51 mm[Hg] Fatoumata Chase Other Outline Other 10-31-2023 11:00-0400Systolic blood rhjwcyfj965 mm[Hg] Fatoumata Chase Other Outline Other 08-11-2023 14:00-0400Body fwweix197.51 cmFatoumata Chase Other Outline Other 08-11-2023 14:00-0400Body mass index (BMI) [Ratio]39.2 kg/r2HgofshFatoumata Chase Other Outline Other 08-11-2023 14:00-0400Body wyirvr22.74 kgMyleneyaquelin Salvatore Other Outline Other 08-11-2023 14:00-0400Diastolic blood xdmwztwy55 mm[Hg] Fatoumata Chase Other Outline Other 08-11-2023 14:00-5172CeM6% (BldA) [Mass fraction]97 % Fatoumata Chase Other Outline Other 08-11-2023 14:00-0400Systolic blood oqwrqnei504 mm[Hg] Fatoumata Chase Other Outline Other 06-12-2023 14:00-0400Body gxtxog458.51 cmFatoumata Chase Other Outline Other 06-12-2023 14:00-0400Body mass index (BMI) [Ratio] 38.98 kg/v1FrkcibFatoumata Chase Other Outline Other 06-12-2023 14:00-0400Body klyyym10.29 kgFatoumata Chase Other Outline Other 06-12-2023 14:00-0400Diastolic blood ofnhqfhb55 mm[Hg] Fatoumata Chase Other [employer] Other 06-12-2023 14:00-0400Systolic blood kgqkkuhq026 mm[Hg] Fatoumata Chase Other Outline Other 05-04-2023 14:30-0400Body .53 Marily Castelan Other Outline Other 05-04-2023 14:30-0400Body mass index (BMI) [Ratio] 24.45 kg/g3Mtpmmu Annelise Other Outline Other 05-04-2023 14:30-0400Body doepni12.2 kgThjayy Castelan Other Outline Other 05-04-2023 14:30-0400Diastolic blood gglmemnt40 mm[Hg] Brendon Castelan Other Outline Other 05-04-2023 14:30-0400Respiratory rate18 /minBrendon Castelan Other Outline Other 05-04-2023 14:30-8693TsG5% (BldA) [Mass fraction]93 % Brendon Castelan Other Outline Other 05-04-2023 14:30-0400Systolic blood amnorpqi853 mm[Hg] Brendon Castelan Other Outline Other 04-20-2023 12:15-0400Body kushpp679.53 Marily Castelan Other Outline Other 04-20-2023 12:15-0400Body mass index (BMI) [Ratio] 24.74 kg/k5Tsgrwc Annelise Other Outline Other 04-20-2023 12:15-0400Body zpnqyk99.11 kgThomas Annelise Other Outline Other 04-20-2023 12:15-0400Diastolic blood etplirlj90 mm[Hg] Brendon Castelan Other Outline Other 04-20-2023 12:15-1657LiP5% (BldA) [Mass fraction]99 % Brenodn Castelan Other Outline Other 04-20-2023 12:15-0400Systolic blood ccokksnj664 mm[Hg] Brendon Castelan Other Outline Other 04-06-2023 12:15-0400Body fxlaeq068.53 cmThomas Annelise Other Outline Other 04-06-2023 12:15-0400Body mass index (BMI) [Ratio] 25.76 kg/y7Wjngka Annelise Other Outline Other 04-06-2023 12:15-0400Body jpftve13.29 kgThjayy Castelan Other Outline Other 04-06-2023 12:15-0400Diastolic blood isfbbyzd44 mm[Hg] Brendon Castelan Other Outline Other 04-06-2023 12:15-2059ZcR7% (BldA) [Mass fraction]96 % Brendon Castelan Other Outline Other 04-06-2023 12:15-0400Systolic blood mm[Hg] Brendon Castelan Other [employer] Other 04-04-2023 15:30-0400Body sktonh696.53 cmHeidi Elif Other Outline Other 04-04-2023 15:30-0400Body mass index (BMI) [Ratio] 25.32 kg/m7Kxyfm Elif Other Outline Other 04-04-2023 15:30-0400Body .7 [degF]Staci Elif Other Outline Other 04-04-2023 15:30-0400Body .93 kgHeidi Elif Other Outline Other 04-04-2023 15:30-0400Diastolic blood cirmkiik37 mm[Hg] Staci Elif Other Outline Other 04-04-2023 15:30-0400Respiratory rate20 /minHeidi Elif Other Outline Other 04-04-2023 15:30-3070PxY6% (BldA) [Mass fraction]97 % Staci Elif Other Outline Other 04-04-2023 15:30-0400Systolic blood yzsjhfof521 mm[Hg] Staci Elif Other Outline Other 03-23-2023 16:00-0400Body eqactw529.53 Marily Castelan Other Outline Other 03-23-2023 16:00-0400Body mass index (BMI) [Ratio] 25.32 kg/j6Hqghob Annelise Other Outline Other 03-23-2023 16:00-0400Body bhrzvy29.93 kgThomas Castelan Other Outline Other 03-23-2023 16:00-0400Diastolic blood jcxrwmqy43 mm[Hg] Brendon Castelan Other Outline Other 03-23-2023 16:00-0400Systolic blood avbpjbkn610 mm[Hg] Brendon Castelan Other Outline Other [id number] 15:45-0500Body .53 cmThomas Castelan Other Outline Other [id number] 15:45-0500Body mass index (BMI) [Ratio] 25.32 kg/j4Xctvpf Castelan Other Outline Other 01-16-2023 15:45-0500Body orfdywxujwh04.1 [degF]Brendon Castelan Other Outline Other 01-16-2023 15:45-0500Body zwymcd19.93 kgThjayy Castelan Other Outline Other 01-16-2023 15:45-0500Diastolic blood tlarnpml91 mm[Hg] Brendon Castelan Other Outline Other 01-16-2023 15:45-0500Respiratory rate18 /minThjayy Annelise Other Outline Other 01-16-2023 15:45-9551MgH9% (BldA) [Mass fraction]98 % Brendon Castelan Other Outline Other 01-16-2023 15:45-0500Systolic blood aldjvblp351 mm[Hg] Brendon Castelan Other Outline Other 12-22-2022 14:00-0500Body .53 cmThomas Castelan Other Outline Other 12-22-2022 14:00-0500Body mass index (BMI) [Ratio] 25.09 kg/n4Vqpwvb Annelise Other Outline Other 12-22-2022 14:00-0500Body .3 [degF]Brendon Castelan Other Outline Other 12-22-2022 14:00-0500Body czlzhu72.2 kgThjayy Annelise Other Outline Other 12-22-2022 14:00-0500Diastolic blood mm[Hg] Brendon Castelan Other Outline Other 12-22-2022 14:00-0035XoG1% (BldA) [Mass fraction]93 % Brendon Castelan Other Outline Other 12-22-2022 14:00-0500Systolic blood ifxwmwvu279 mm[Hg] Brendon Castelan Other Outline Other 12-15-2022 12:00-0500Body ltufzb562.53 cmHeidi Elif Other [employer] Other 12-15-2022 12:00-0500Body mass index (BMI) [Ratio] 25.47 kg/f1Bazdr Elif Other Outline Other 12-15-2022 12:00-0500Body kvxifxcueil60.7 [degF]Staci Elif Other Outline Other 12-15-2022 12:00-0500Body ousiha02.38 kgHeidi Elif Other Outline Other 12-15-2022 12:00-0500Diastolic blood wsbebwbl55 mm[Hg] Staci Elif Other Outline Other 12-15-2022 12:00-0500Respiratory rate20 /minHeidi Elif Other Outline Other 12-15-2022 12:00-9793GcS5% (BldA) [Mass fraction]99 % Staci Elif Other Outline Other 12-15-2022 12:00-0500Systolic blood nxbabpiu807 mm[Hg] Staci Elif Other Outline Other 11-03-2022 16:30-0400Body qnvbus984.53 cmTestevanas Castelan Other [employer] Other 11-03-2022 16:30-0400Body mass index (BMI) [Ratio] 25.47 kg/y7OwcisvBrendon Castelan Other [employer] Other 11-03-2022 16:30-0400Body gxayjbylnof23.8 [degF]Brendon Castelan Other Outline Other 11-03-2022 16:30-0400Body ebemnh02.38 kgBrendon Castelan Other Outline Other 11-03-2022 16:30-0400Diastolic blood gsqjdlky51 mm[Hg] Brendon Castelan Other Outline Other 11-03-2022 16:30-0400Respiratory rate20 /minBrendon Castelan Other Outline Other 11-03-2022 16:30-1138GlS2% (BldA) [Mass fraction]97 % Brendon Castelan Other Outline Other 11-03-2022 16:30-0400Systolic blood pegdttue257 mm[Hg] Brendon Castelan Other Outline Other 11-02-2022 10:15-0400Body fecyzd927.53 cmHeidi Elif Other Outline Other 11-02-2022 10:15-0400Body mass index (BMI) [Ratio] 25.18 kg/i5Uspnb Elif Other Outline Other 11-02-2022 10:15-0400Body xswpiduwbsi50.7 [degF]Staci Elif Other Outline Other 11-02-2022 10:15-0400Body touegd92.47 kgHeidi Elif Other [employer] Other 11-02-2022 10:15-0400Diastolic blood uupfntdh75 mm[Hg] Staci Elif Other Outline Other 11-02-2022 10:15-0400Respiratory rate20 /minHeidi Elif Other Outline Other 11-02-2022 10:15-2864QmV8% (BldA) [Mass fraction]98 % Staci Elif Other Outline Other 11-02-2022 10:15-0400Systolic blood rpblldwy884 mm[Hg] Staci Elif Other Outline Other 09-22-2022 11:30-0400Body zhrnne491.53 Marily Castelan Other Outline Other 09-22-2022 11:30-0400Body mass index (BMI) [Ratio] 25.03 kg/f9Tojlie Annelise Other Outline Other 09-22-2022 11:30-0400Body oetidy89.02 kgThjayy Annelise Other Outline Other 09-22-2022 11:30-0400Diastolic blood rimezbmy08 mm[Hg] Brendon Castelan Other Outline Other 09-22-2022 11:30-0400Systolic blood calphtys812 mm[Hg] Brendon Castelan Other Outline Other 04-25-2022 16:00-0400Body ecmvuy851.53 Marily Castelan Other Outline Other 04-25-2022 16:00-0400Body mass index (BMI) [Ratio] 24.16 kg/n0Kxtjzfjayy Hurtadoon Other Outline Other 04-25-2022 16:00-0400Body pjltuq95.3 kgThjayy Castelan Other Outline Other 04-25-2022 16:00-0400Diastolic blood mm[Hg] Brendon Castelan Other Outline Other 04-25-2022 16:00-0400Respiratory rate18 /minPowerjayy Annelise Other Outline Other 04-25-2022 16:00-2124TtO4% (BldA) [Mass fraction]99 % Brendon Castelan Other Outline Other 04-25-2022 16:00-0400Systolic blood doihmxkc962 mm[Hg] Brendon Castelan Other Outline Other 2022 14:30-0400Body gzbucb119.53 Cynthiachris Castelan Other Outline Other 2022 14:30-0400Body mass index (BMI) [Ratio] 24.16 kg/d6Zkxvbv Castelan Other Outline Other 2022 14:30-0400Body gozmyw63.3 kgThjayy Castelan Other Outline Other 2022 14:30-0400Diastolic blood npveevtl06 mm[Hg] Brendon Castelan Other Outline Other [id number] 14:30-0400Systolic blood tgcegmmr709 mm[Hg] Brendon Castelan Other Outline Other 12-13-2021 14:15-0500Body ierssz218.53 Marily Castelan Other Outline Other 12-13-2021 14:15-0500Body mass index (BMI) [Ratio] 24.74 kg/l5Sykgnejayy Castelan Other Outline Other 12-13-2021 14:15-0500Body nzitjo35.11 kgThomas Annelise Other Outline Other 12-13-2021 14:15-0500Diastolic blood xelwweej30 mm[Hg] Brendon Castelan Other Outline Other 12-13-2021 14:15-0500Systolic blood wzcpxijz183 mm[Hg] Brendon Castelan Other Outline Other 11-18-2021 15:00-0500Body tyymyc570.53 Marily Castelan Other Outline Other 11-18-2021 15:00-0500Body mass index (BMI) [Ratio] 24.74 kg/l4Ffsrut Castelan Other Outline Other 11-18-2021 15:00-0500Body eachif75.11 kgThjayy Castelan Other Outline Other 11-18-2021 15:00-0500Diastolic blood fttuxote01 mm[Hg] Brendon Castelan Other [employer] Other 11-18-2021 15:00-0500Respiratory rate18 /minBrendon Castelan Other [employer] Other 11-18-2021 15:00-7494ErJ2% (BldA) [Mass fraction]98 % Brendon Castelan Other [employer] Other 11-18-2021 15:00-0500Systolic blood oskawmhb592 mm[Hg] Brendon Castelan Other Outline Other 11-16-2021 14:15-0500Body .53 cmBobby Ramesh Other Outline Other 11-16-2021 14:15-0500Body mass index (BMI) [Ratio] 24.74 kg/i3EsfprBobby Ramesh Other [employer] Other 11-16-2021 14:15-0500Body xonceohsktf24 [degF]Bobby Ramesh Other [employer] Other 11-16-2021 14:15-0500Body .11 kgDaaurelio Ramesh Other [employer] Other 11-16-2021 14:15-0500Diastolic blood dkuppuzo91 mm[Hg] Bobby Ramesh Other Outline Other 11-16-2021 14:15-3482CvI4% (BldA) [Mass fraction]97 % Bobby Ramesh Other [employer] Other 11-16-2021 14:15-0500Systolic blood vsggmatr575 mm[Hg] Bobby Ramesh Other [employer] Other 10-22-2021 15:30-0400Body .53 cmPamelelaine Hill Other Outline Other 10-22-2021 15:30-0400Body mass index (BMI) [Ratio] 24.74 kg/d4Yczmainela Hill Other Outline Other 10-22-2021 15:30-0400Body yxzcvzwjmfs833.4 [degF] Palma Yimond Other Outline Other 10-22-2021 15:30-0400Body hmivjw77.11 kgPanela Hill Other Outline Other 10-22-2021 15:30-0400Respiratory rate18 /minPalma Hill Other Outline Other 10-22-2021 15:30-4258LiB1% (BldA) [Mass fraction]94 % Palma Hill Other Outline Other 09-09-2021 15:30-0400Body tpdlom748.53 Marily Castelan Other [employer] Other 09-09-2021 15:30-0400Body mass index (BMI) [Ratio] 24.89 kg/w4RgrzjhBrendon Castelan Other [employer] Other 09-09-2021 15:30-0400Body .57 kgBrendon Castelan Other Outline Other 09-09-2021 15:30-0400Diastolic blood ovoeirst14 mm[Hg] Brendon Castelan Other [employer] Other 09-09-2021 15:30-0400Respiratory rate16 /minBrendon Castelan Other [employer] Other 09-09-2021 15:30-8012SkA2% (BldA) [Mass fraction]98 % Brendon Hurtadoon Other Outline Other 09-09-2021 15:30-0400Systolic blood wevwlemr465 mm[Hg] Brendon Castelan Other Outline Other Encounters Encounter DateEncounter TypeCare ProviderFacilityStart: 07-19-2025 End: 50-13-5077Fmnakl Marco Kincaid DPM Work Phone: [facility]iatryStart: 07-19-2025 End: 58-26-1370Ydtnoq flowsJavier S Sanjiv DPM Work Phone: [facility]iatryStart: 07-19-2025 End: 70-04-5943Vraydw follow up visit related to original Adi S Sanjiv DPM Work Phone: noLodgeoFountain Green PodiatryComment on above:Hammer toes of both feet (Primary Dx); Equinus contracture of left ankle; Equinus contracture of right ankle; Lymphedema; Diabetic polyneuropathy associated with type 2 diabetes mellitus (HCC)Start: 07-19-2025 End: 38-60-0951sepygiidjgRSDVUCM S RUSHERNot AvailableStart: 00-42-1375Upewlxrkh for other preprocedural examinationCHRISTOPHER [facility] Hamiltontart: 07-09-2025 End: 18-33-0192gfkbdyvissVNOWUQGJBZK [facility] Start: 07-07-2025 End: 80-82-0847fwkvrecyvsMHYKVXMRJVO [facility] Start: 06-28-2025 End: 00-33-4451Zwwpjy flowsJavier Kincaid DPM Work Phone: [facility]Start: 06-28-2025 End: 66-58-5609Aqigmy flowsheetStephon S Sanjiv DPM Work Phone: [facility]Start: 06-28-2025 End: 80-57-9575Ufbgei follow up visit related to original pxStephon Kincaid DPM Work Phone: noms [facility] PodiatryComment on above:Hammer toes of both feet (Primary Dx); Equinus contracture of left ankle; Equinus contracture of right ankle; Lymphedema; Diabetic polyneuropathy associated with type 2 diabetes mellitus (HCC)Start: 06-28-2025 End: 48-07-5609cmzeovaqmzKWCDSQC S RUSHERNot AvailableStart: 06-14-2025 End: 45-94-0874Nbfjeq flowsheetAnthyumiko Kincaid DPM Work Phone: [facility]ryStart: 06-14-2025 End: 52-90-0894Fiytog flowsheetAnthyumiko S Sanjiv DPM Work Phone: [facility]ryStart: 06-14-2025 End: 29-91-8004Lakhwm outpatient visit 15 minutesAnthyumiko Kincaid DPM Work Phone: [facility] PodiatryComment on above:Diabetic polyneuropathy associated with type 2 diabetes mellitus (HCC) (Primary Dx); 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, without long-term current use of insulin (HCC); Lymphedema; Hammer toes of both feet; Equinus contracture of left ankle; Equinus contracture of right ankleStart: 06-14-2025 End: 73-40-3198wbwcqpkeviHDXUKWD Seamus KINCAIDNot AvailableStart: 06-08-2025 End: 37-47-8170fbqtybmvtaJgxdmx E Braun MD Work Phone: [facility] Work Phone: Start: 06-08-2025 End: 56-06-5693Xxrvltd encounter procedureFatoumata Chase MD-[facility] Work Phone: Start: 05-04-2025 End: 02-56-1525Zygdxd outpatient visit 15 minutesCaramandeep Miranda DPM Work Phone: noms Justin PodiatryComment on above:Onychomycosis (Primary Dx); Pain in both feet; 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, without long-term current use of insulin (HCC); Lymphedema; Hammer toes of both feetStart: 05-04-2025 End: 53-81-9304aewlbzfgniKUQVDLMFE H SMITHNot AvailableStart: 05-04-2025 End: 26-08-2065Xgopog flowsheetJimmy Miranda DPM Work Phone: [facility] PodiatryStart: 05-04-2025 End: 72-11-1103Mzfvux flowsPapito Miranda DPM Work Phone: [facility] PodiatryStart: 02-02-2025 End: 02-55-0212Tpvgng outpatient visit 10 minutesZulema Reid MD Work Phone: [facility] DERMComment on above:Seborrheic keratosis (Primary Dx); Neoplasm of unspecified behavior of bone, soft tissue, and skin; Seborrheic keratosis, inflamedStart: 02-02-2025 End: 56-65-6576itytdwdonoKMAFA A PETITTINot AvailableStart: 02-02-2025 End: 93-32-7205Ikvulfstacia Reid MD Work Phone: [facility] DERMStart: 02-02-2025 End: 99-14-5744Mfpjnj Mauri Reid MD Work Phone: noms [facility] DERMStart: 01-18-2025 End: 32-75-8104Lwldivv encounter procedureJimmy Miranda DPM Work Phone: [facility] PODIATRYComment on above:Onychomycosis (Primary Dx); Pain in both feet; 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, without long-term current use of insulin; LymphedemaStart: 01-18-2025 End: 24-98-1633kqhxcohrvjKOYAVAMVC H SMITHNot AvailableStart: 01-18-2025 End: 80-71-9465Hwzwik flowsPapito Miranda DPM Work Phone: [facility] PODIATRYStart: 01-18-2025 End: 29-23-3200Hxankb flowsPapito Miranda DPM Work Phone: [facility] PODIATRYStart: 12-07-2024 End: 07-40-2561hzexblvntgJhrwicfgzPeoples Hospital Work Phone: Start: 12-07-2024 End: 63-68-8190Xntmkdq encounter procedureBlue [facility] Phys[facility] GroupK[facility] Work Phone: Start: 10-20-2024 End: 51-39-1605Imllfhy encounter procedureJimmy Miranda DPM Work Phone: noms [facility] PODIATRYComment on above:Onychomycosis (Primary Dx); Pain in both feet; 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, without long-term current use of insulin ([facility]); LymphedemaStart: 10-20-2024 End: 06-27-9857oqvyqqfvvtSEXEGMTLF H SMITHNot AvailableStart: 10-20-2024 End: 90-99-6753Aorcdt flowsPapito Miranda DPM Work Phone: noms [facility] PODIATRYStart: 10-20-2024 End: 20-51-2706Pruxkx flowsheetJimmy Miranda DPM Work Phone: NOMS [facility]WS PODIATRYStart: 06-08-2024 End: 29-09-7825mlrkaluvcqTkwnqsqdtPeoples Hospital Work Phone: Start: 06-08-2024 End: 59-99-3935Vqsclyg encounter procedureFirhellertowns Physician Group-[facility] Work Phone: Start: 05-04-2024 End: 93-00-5464Inbygos encounter procedureJimmy Miranda DPM Work Phone: NOMS SWS PODIATRYComment on above:Onychomycosis (Primary Dx); Pain in both feet; 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, without long-term current use of insulin ([facility]); Lymphedema; Venous insufficiencyStart: 03-05-2024 End: 78-75-5374hwknsouvlqSqcbwmqfsPeoples Hospital Work Phone: Start: 03-05-2024 End: 30-58-5126Cmqjhub encounter procedureFirhellertowns Physician Group-[facility] Work Phone: Start: 01-28-2024 End: 44-19-5895Vsokzjt encounter procedureFirhellertowns Physician Group-[facility] Pulmonary Disease Work Phone: Start: 01-01-2024 End: 05-04-6729tnosejuljyUlzaultflPeoples Hospital Work Phone: Start: 01-01-2024 End: 20-95-6394Oxlwovi encounter procedureFirhellertowns Physician Group-[facility] Work Phone: Start: 24-47-6110Zim-patient / [facility] [employer] Work Phone: Start: 12-02-2023 End: 46-03-0256lmpnvubxzrLyroghufjPeoples Hospital Work Phone: Start: 12-02-2023 End: 59-03-9904Rfnvxwq encounter procedureFirdamions Physician Group-[facility] Work Phone: Start: 22-22-1483Ifr-patient / Non-visitFirsiva Physician Group-[facility] [employer] Work Phone: Start: 08-01-2023 End: 27-81-4762glaklykzwvCcupkr Braun Other [employer] Other Start: 03-81-3059Itkazp outpatient visit 15 minutes Fatoumata RanjanDosher Memorial Hospitaltart: 07-25-2023 End: 54-64-1504fhvcukyczaFtwctfex Rohrbacher Other [employer] Other Start: 64-41-6973Yylzfsyjb encounterMorena SantanaJohnson County Health Care Center - Buffalotart: 07-24-2023 End: 18-86-5842idiwpgxzbbFazbdohl Aliyarbacher Other [employer] Other Start: 04-48-0656Rmwyhr outpatient visit 15 minutes Morena PisanoWonHarrison Community Hospitaltart: 07-16-2023 End: 15-14-0635hwqxqxnhywLxdegf Salvatore Other [employer] Other Start: 16-58-4707Vzjptp outpatient visit 25 [address] Rita's Medical Centertart: 05-24-2023 End: 66-10-5590xcozfdrmojUawqmv WilliamsonFacility:[facility] Hospitaltart: 05-22-2023 End: 80-99-3309pdyarufijbKqhlep Salvatore Other [employer] Other Start: 61-70-1013Khlxabaov encounterMarcielaine ChaseMercy Health St. Rita's Medical Centertart: 05-21-2023 End: 82-20-3708mkwatwbuuoApcxho Chase Other [employer] Other Start: 33-15-3576Nfhiogcph encounterMarcia RanjanG [facility] ClinicStart: 05-08-2023 End: 27-96-3088iyvgymrajuFpyfmd Chase Other [employer] Other Start: 07-15-9835Qaobndtvn encounterMarcia RanjanG [facility] ClinicStart: 04-26-2023 End: 89-10-2551qdwzkexhuvFjamca Chase Other [employer] Other Start: 89-92-2239Vhzawdkhvtor care manage srvc 14 day dischargeMarcia [facility] ClinicStart: 04-22-2023 End: 12-00-4490qbkvnawwujMxolxw Chase Other [employer] Other Start: 61-02-6091Jshhmycis encounterMarcia [facility] ClinicStart: 04-17-2023 End: 81-15-2324zkaalawniuQsfzit Chase Other [employer] Other Start: 10-33-0755Gxyzarwwc encounterMarcia RanjanG [facility] ClinicStart: 04-15-2023 End: 41-88-2474rvehdngoydRamzsc Chase Other [employer] Other Start: 43-18-3828Qfjrvlxzt encounterMarcia RanjanG [facility] ClinicStart: 55-64-1085Hthkwrhlj encounterMarcia RanjanG [facility] ClinicStart: 04-03-2023 End: 44-29-8328uewvxgeitsGR Thomas Williamson Work Phone: [facility] Work Phone: Start: 04-03-2023 End: 03-81-2433Ybatope encounter procedureMD Brendon Annelise Work Phone: [facility]-Respiratory Therapy Work Phone: Start: 03-26-2023 End: 43-14-5851jntjbvdtelFrcgik Chase Other [employer] Other Start: 31-63-8150Zmkycditt encounterMarcia BraunLUCASG [facility] ClinicStart: 03-25-2023 End: 23-51-3215rxjelakaxrSxzsxc Chase Other [employer] Other Start: 30-33-2430Ecbuppbgs encounterMarcia BraunLUCASG [facility] ClinicStart: 03-18-2023 End: 85-28-1810rusqgcaszzHuwpoa Chase Other [employer] Other Start: 05-14-8115Nlfgtlcfb encounterMarcia BraunG [facility] ClinicStart: 03-13-2023 End: 65-87-5804djsmkhcdlmDdhrww Annelise Other [employer] Other Start: 20-31-7171Xbdnzlyid encounterThomas Annelise [facility] CareStart: 03-05-2023 End: 37-57-4730fgtompsoycBtfmaw Chase Other [employer] Other Start: 03-08-3516Jfchkbgpb encounterMarcia BraunLUCASG [facility] ClinicStart: 03-02-2023 End: 67-86-1300kvfddhqlcuWhkunj Chase Other [employer] Other Start: 21-12-4797Zbhgffbxo encounterMarcia BraunLUCASG [facility] ClinicStart: 02-28-2023 End: 65-26-4229srvqdnvqdwHjnztx Chase Other Outline Other Start: 01-04-3767Rhsisxpfb encounterMaryaquelin [facility]iron Primary CareStart: 02-25-2023 End: 59-53-6373tsssrgwzswXgarvr Salvatore Other Outline Other Start: 57-96-6532Nyirbc outpatient new 45 minutes Fatoumata RanjanFidelina [facility] Hospitaltart: 01-25-2023 End: 04-23-5866Bugbjmcgtl and management of inpatientDR CHON LYNCH Facility:A9Lwtvm: 01-24-2023 End: 56-57-1225hyxnlzhnesIzzhsi Annelise Other Outline Other Start: 40-24-0467Nziqwaugc encounterThomas Castelan [facility] CareStart: 01-21-2023 End: 66-69-5737psdtzpyeomTysods Castelan Other Outline Other Start: 91-53-5333Mqfsnlbjk encounterThomas Castelan [facility] CareStart: 01-17-2023 End: 96-65-2543Eiifxdk encounter procedureMD Brendon Annelise Work Phone: [facility] [place] Work Phone: Start: 01-17-2023 End: 31-83-9486lfcoayiqeqJcovjd BryantNortheast [facility] [employer] Other Start: 31-32-4066Cfswvq outpatient visit 25 minutes Brendon CastelanFPG [facility] CareStart: 72-00-6902Ykyncckyf encounter Brendon CastelanFPG [facility] CareStart: 01-11-2023 End: 71-13-8075bvlowjaqinPdoksx Castelan Other Outline Other Start: 56-11-1332Jaevcuoyb encounterThomas Castelan [facility] CareStart: 01-08-2023 End: 92-73-7619siauldamjhDowptq Castelan Other [employer] Other Start: 75-19-1913Bcjizxysb encounterThomas Castelan [facility] CareStart: 20-47-6676Anqnpi outpatient visit 25 minutesThomas WilliamsonFPG [facility] CareStart: 49-11-5717Wbwmlfllc encounterThomas WilliamsonFPG [facility] CareStart: 01-03-2023 End: 25-53-7287esffubtbgwPmkjjh WilliamsonFacility:[facility] Hospitaltart: 01-03-2023 End: 19-73-9187iqujylcaxgJS Brendon Castelan Work Phone: [facility] Work Phone: Start: 01-03-2023 End: 62-55-3482Crxfvml encounter procedureMD Brendon Castelan Work Phone: [facility] [place] Work Phone: Start: 01-02-2023 End: 35-27-3952ifqjspaeztYchyra Castelan Other [employer] Other Start: 32-27-9781Qznvemjgg encounterThomas Castelan [facility] CareStart: 12-20-2022 End: 96-74-3612btoxtuoyylQmvxyt Castelan Other [employer] Other Start: 55-60-5824Vfzjli outpatient visit 25 minutes Brendon CastelanFPG [facility] CareStart: 12-19-2022 End: 48-97-5232jhdagiyaneRqkxet Castelan Other [employer] Other Start: 92-05-6261Bmvsodhma encounterThomas Castelan [facility] CareStart: 12-18-2022 End: 09-39-4723ctkkynqrlfRuvcl Elif Other [employer] Other Start: 88-84-7239Jedmnf outpatient visit 25 minutes Staci GastFPG Pulmonary DiseaseStart: 56-19-6651Lwojucfak encounterThjayy CastelanFPG [facility] CareStart: 12-14-2022 End: 83-30-6851gbuveaojuzPjdkub Castelan Other Outline Other Start: 17-55-3278Ixtnetjor encounterThjayy Castelan [facility] CareStart: 12-06-2022 End: 01-10-4581pailalufxcOkyzyb Castelan Other Outline Other Start: 24-87-9345Kpzqfo outpatient visit 25 minutes Brendon CastelanFPG [facility] CareStart: 16-57-7055Vsgsrgnwe encounter Brendon CastelanFPG [facility] CareStart: 11-29-2022 End: 72-34-6589dyxtgpfbwcTogurc Williamson Other Outline Other Start: 99-86-1454Vzxjqlgff encounterThomas Annelise [facility] CareStart: 11-26-2022 End: 26-82-1109onhyfxazuoQfqpa GastFacility:[facility] Start: 11-26-2022 End: 43-23-8745fuqjxyaunhDN Brendon Castelan Work Phone: [facility] Work Phone: Start: 11-26-2022 End: 15-72-6587Ojqmkwq encounter procedureMD Brendon Castelan Work Phone: [facility]-CT Scan [facility] [place] Work Phone: Start: 11-20-2022 End: 86-83-6325ibfhxlnrvaMgqowl Williamson Other Outline Other Start: 68-67-2442Toolvjffe encounterThomas Castelan [facility] CareStart: 10-13-2022 End: 25-97-8640jhgkrvdrxhVJ DOCTOR MISCFacility:Y9Zryhf: 10-01-2022 End: 16-20-8919ddylqgddgdNfzwry Castelan Other [employer] Other Start: 87-30-9695Jijxfp outpatient visit 25 minutes Brendon CastelanFPG [facility] CareStart: 09-06-2022 End: 06-48-2155btfbzfohghRwzkko Castelan Other [employer] Other Start: 14-85-7382Jqxzjz outpatient visit 25 minutes Brendon CastelanFPG [facility] CareStart: 09-04-2022 End: 38-44-5423wboyvnyasuQsvqip Castelan Other [employer] Other Start: 74-98-3890Mnfgpflyl encounterThomas Castelan [facility] CareStart: 08-30-2022 End: 72-49-0800zitbfkdoxsGjlxm Elif Other [employer] Other Start: 30-98-1747Icqmty outpatient visit 25 minutes Staci GastFPG Pulmonary DiseaseStart: 08-28-2022 End: 41-69-7276eqaojgzvrbDykdvl Castelan Other [employer] Other Start: 23-53-5608Aunzcdebo encounterThomas Castelan [facility] CareStart: 07-31-2022 End: 87-05-9652ffmbfeqzxcHjpqqz Castelan Other [employer] Other Start: 03-61-4585Purigfupa encounterThomas Castelan [facility] CareStart: 07-19-2022 End: 63-98-7470zmeuetgnnsWijbjo Castelan Other Outline Other Start: 55-25-9161Ugmuow outpatient visit 25 minutes Brendon HurtadovivekFPG [facility] CareStart: 07-18-2022 End: 62-98-5156dtvkjbaqcvCrzhd Elif Other [employer] Other Start: 83-06-2106Kmxdgm outpatient new 45 minutesHeidi GastFPG Pulmonary DiseaseStart: 12-37-8767Vlxcbnzde encounterHeidi GastFPG Referral CoordinatorStart: 06-28-2022 End: 98-35-3725sklyfhalnmYsnaxt Castelan Other Outline Other Start: 18-13-3824Qweensdna encounterThomas Castelan [facility] CareStart: 06-20-2022 End: 96-99-8899xkxrfevefrJmmyxb Castelan Other Outline Other Start: 92-73-2629Xquhnjont encounterThomas Castelan [facility] CareStart: 06-18-2022 End: 68-24-9956stckfycefsFiasbn Castelan Other [employer] Other Start: 50-73-9590Rcsexqumj encounterThomas Castelan [facility] CareStart: 06-15-2022 End: 96-29-9403nelfriciqkLdcknn WilliamsonFacility:[facility] Hospitaltart: 06-11-2022 End: 98-01-0476ylouffpxkmWychtn Castelan Other [employer] Other Start: 93-16-2732Vtujgyhas encounterThomas Castelan [facility] CareStart: 06-08-2022 End: 34-86-0714yuqlzgyvadZjsbha WilliamsonFacility:[facility] Hospitaltart: 06-08-2022 End: 02-04-9941Njvtoyl encounter procedureMD Brendon Castelan Work Phone: [facility] [place] Start: 84-85-1894ypgthurfbqHgxayega:9090Start: 06-07-2022 End: 79-67-8524dlizwdinruCpqknl Williamson Other Outline Other Start: 55-83-1253Vfupwn outpatient visit 25 minutes Brendon TomlinsonG [facility] CareStart: 49-44-2608Mjqfnptaw encounter Brendon Giron Primary CareStart: 06-04-2022 End: 47-46-9137quwbyoidlsNckemp Williamson Other Outline Other Start: 76-78-4944Bzjlzeljf encounterThomas Annelise [facility] CareStart: 05-31-2022 End: 54-65-0674fqepmpbhatPokaqv Williamson Other Outline Other Start: 81-62-2551Zzztinuzy encounterThomas Annelise F[facility] CareStart: 05-26-2022 End: 83-63-4175Zhtrwha encounter procedureMD Brendon Castelan Work Phone: [facility] CampusStart: 05-24-2022 End: 35-36-8191frcvvwwffcFywrsx Williamson Other Outline Other Start: 72-03-1239Wrdaupfpf encounterThomas Annelise F[facility] CareStart: 05-17-2022 End: 84-75-2087Erihzrt encounter procedureMD Brendon Castelan Work Phone: [facility]-Lab [place]Start: 05-09-2022 End: 60-38-1729llsewgceywPwyjnq Williamson Other Outline Other Start: 78-07-7612Mdtmbzuxn encounterThomas Castelan [facility] CareStart: 05-07-2022 End: 32-14-8674rlbdckccgcRqxunx Castelan Other [employer] Other Start: 25-90-8301Ovwhloqtw encounterThomas Castelan [facility] CareStart: 04-30-2022 End: 76-86-4125ubwnrtmhybInamkj Castelan Other Outline Other Start: 40-02-7776Yvvspuzfg encounterThomas Castelan [facility] CareStart: 03-02-2022 End: 15-38-2569yyrazgvgcgSI DOCTOR MISCFacility:M4Ihjqp: 02-14-2022 End: 24-66-6663koqujymgwcTluytd Castelan Other Outline Other Start: 12-48-5185Ekbejkfef encounterThomas Castelan [facility] CareStart: 02-13-2022 End: 41-59-3200imziqwzwvwNxcbtn Castelan Other Outline Other Start: 48-00-0266Ngkkiyapd encounterThomas Castelan [facility] CareStart: 02-13-2022 End: 19-49-7714Pzkhvmruja and management of inpatientDR DOCTOR MISCFacility:H1 Start: 01-08-2022 End: 15-17-1468wcxpckpgczGhtzun Castelan Other Outline Other Start: 64-60-5593Uekdrz outpatient visit 25 minutes Brendon BryantonFPG [facility] CareStart: 12-18-2021 End: 69-76-2561pcauxguhzyQiufkc Castelan Other Outline Other Start: 04-57-7435Nwhziwuyi encounterThomas Castelan [facility] CareStart: 11-30-2021 End: 71-49-0996bhgviztjwrXhldhy Annelise Other [employer] Other Start: 28-87-3412Ebxeei outpatient visit 15 minutes Brendon [facility]iron Primary CareStart: 10-16-2021 End: 53-49-6261wevoppdumyAmqtsn Williamson Other [employer] Other Start: 11-49-8363Cuvgtosfy encounterThomas Annelise [facility] CareStart: 08-28-2021 End: 30-07-8322fefmzadrraIigylp Williamson Other [employer] Other Start: 86-64-9778Koydwh outpatient visit 25 minutes Brendon [facility] Primary CareStart: 08-03-2021 End: 00-74-9938fnrbczgygbSrjlyh Williamson Other [employer] Other Start: 62-70-3581Tokdrr outpatient visit 15 minutes Brendon [facility] Primary CareStart: 08-01-2021 End: 25-19-1955hfoamzwmdjJrejm Morris Other [employer] Other Start: 11-87-0317Aschbu outpatient visit 15 minutes Bobby RameshUniversity Hospitals Conneaut Medical Center SouthStart: 65-72-8408Pnrqwcsii encounter Brendon [facility] Primary CareStart: 69-46-2389Wrxfoe outpatient visit 15 minutesPanela [facility] ClydeStart: 94-94-9526Zibibdilz encounter Brendon [facility]iron Primary CareStart: 05-25-2021 End: 75-67-5914sbjihreykjIfzcaq Williamson Other [employer] Other Start: 20-95-3192Pmxyfx outpatient visit 25 minutes Brendon TomlinsonFidelina [facility] Procedures DateProcedureProcedure DetailPerforming ClinicianStart: 88-34-0407XPANDXVRAEE SKIN LESIONEmily Elaine Reid MD Work Phone: Start: 49-57-6446IVYM / NAIL BIOPSYEmily Ealine Reid MD Work Phone: Start: 23-71-0377Bkbco cultureMD Brendon Hurtadoon Work Phone: Start: 03-32-8102EG of chest without contrastMD Brendon Hurtadoon Work Phone: Start: 32-45-6521NT of chest without contrastMD Brendon Annelise Work Phone: Start: 05-41-6486Khezj chest X-rayMD Brendon Castelan Work Phone: Plan of Treatment DateCare ActivityDetailAuthorStart: 08-10-2025 End: 40-25-4762Jjikyze encounter nxydjnrha87/25/2025 10:15 AM EST Procedure Visit [facility] [address] [place] [id number] Jimmy Miranda DPM [address] [place] [address] EM [facility] PodiatryStart: 07-19-2025 End: 03-61-6118Pxrjpfo encounter mphpwumql34/03/2025 2:00 PM EST Office Visit [facility] [address] [place] [id number] Stephon Kincaid DPM [address] [place] [id number] Nehemias [facility] PodiatryComment on above:ArrivedStart: 06-28-2025 End: 18-87-6928Fpfmkbw encounter trjkkpsca94/13/2025 9:30 AM EDT Office Visit [facility] [address] [place] [address] Stephon Kincaid DPM [address] [place] [address] AlejandraMS [facility] PodiatryComment on above:ArrivedStart: 06-14-2025 End: 47-42-2765Vhsdgmz encounter /29/2025 2:00 PM EDT Office Visit L[facility] [address] [place] [address] Stephon Kincaid DPM [address] [place] [address] 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, without long-term current use of insulin (HCC); Lymphedema; Hammer toes of both feetNOMT Adri PodiatryComment on above: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, without long-term current use of insulin (HCC); Lymphedema; Hammer toes of both feetStart: 05-04-2025 End: 43-90-3672Pdgpfty encounter dimyjmftw39/19/2025 3:15 PM EDT Procedure Visit [facility] [address] [place] [id number] Jimmy Miranda, DPM [address] [place] [address] ArrivedDONOVANMS ValladaresJustin PodiatryComment on above:ArrivedStart: 04-21-2025 End: 75-99-2778Uglhjyn encounter kklbxowsr12/06/2025 2:30 PM EDT Procedure Visit [facility] [address] [place] [address] Jimmy Miranda, DPM [address] [place] [address] LEVS SWS PODIATRYStart: 02-02-2025 End: 42-40-0181Tkxsqzk encounter procedureNO SWS DERMComment on above:Arrived Start: 01-18-2025 End: 45-63-5125Zxsejar encounter iofujkcmb31/05/2025 3:15 PM EDT Procedure Visit NOMSeamus [facility] [address] [place] [address] Jimmy Miranda, DPM [address] [place] [address] ArrivedNO SWS PODIATRYComment on above:ArrivedStart: 10-20-2024 End: 28-70-9617Jbscttf encounter /04/2025 2:15 PM EST Procedure Visit [facility] [address] [place] [id number] Jimmy Miranda, DPM [address] [place] [address] ArrivedNO SWS PODIATRYComment on above:ArrivedStart: 68-20-3120Xbpuiww referralMadison Health Work Phone: Start: 74-53-4788Jkmtdztz identified in Urine by [facility] HospitalComprehensive metabolic 2000 panel - Serum or PlasmaMadison HealthDermatopathology exam Dermatopathology exam Pathology and Cytology Timed Neoplasm of unspecified behavior of bone, soft tissue, and skin Release Upon Ordering for 1 Occurrences starting 02/02/2025[facility] Work Phone: comment on above:Release Upon Ordering for 1 Occurrences starting 02/02/2025EKG 12 channel panelMadison HealthPatient referralMadison Health Work Phone: [facility] TransthoracicPalm [facility] Immunizations Immunization DateImmunizationNotesCare CamtqyvvDrvwrlzw13-66-3006niqrswcqb, high dose seasonal, preservative-freeMadison Health11-03-2022 influenza, high dose seasonal, preservative-freeHeidi Elif Other [employer] Other [id number] virus vaccine, unspecified formulationMadison Health12-14-2021COVID-19 Vaccine Moderna - Documentation Purposes OnlyHeidi Elif Other [facility]11-18-2021influenza, high dose seasonal, preservative-freeThomas Castelan Other noSeatID [employer] Other [id number] virus vaccine, unspecified formulationMadison Health03-09-2021COVID-19 Vaccine Moderna - Documentation Purposes OnlyHeidi Elif Other [facility]02-08-2021COVID-19 Vaccine Moderna - Documentation Purposes OnlyHeidi Elif Other [facility]10-23-2020influenza virus vaccine, unspecified formulationMad[facility] Health 65-27-1892dzhtqrofo, high dose seasonal, preservative-freeThomas Castelan Other [employer] Other [id number] polysaccharide vaccine, 23 valentThomas Castelan Other [facility]01-25-2018Toradol per 15 mgThomas Castelan Other [employer] Other [id number], injectable, quadrivalent, contains preservativeThomas Castelan Other [employer] Other 11-561871-48-9555amkagrqda, injectable, quadrivalent, preservative freeMadison Health05-16-2017pneumococcal conjugate vaccine, 13 valentThomas Castelan Other [facility]10-18-2016influenza, injectable, quadrivalent, contains preservativeThomas Castelan Other [place] [employer] Other 10885277-36-5912lpdqifodk, injectable, quadrivalent, preservative freeMadison Health10-20-2014influenza, injectable, quadrivalent, contains preservativeThomas Castelan Other [facility]10-11-2012influenza, injectable, quadrivalent, contains preservativeThomas Castelan Other [facility] Payers DatePayer CategoryPayerPolicy [id number] [id number] ..[id number] Health InsuranceAARP .[id number] AARP [id number] 2002-Present [address] [place] [address] .[id number] [id number] .3.058591.5553-02-1937 [id number] 2.16.840.1.837880.3.57[id number] 2.16840.1.469921.3.57[id number] 2.16840.1.630893.3.579.[id number] 2.16840.1.325507.3.57[id number] 2.16840.1.350700.3.57[id number] 2.840.1.577090.3.57[id number] 2.840.1.198738.3.579.[id number] 2.840.1.046413.3.57[id number] 2.840.1.602697.3.57[id number] 2.840.1.642576.3.57[id number] 2.840.1.582616.3.57[id number] 2.840.1.669281.3.579.2.5169Su[id number] 2.16840.1.3[id number] 2.16840.1.514757.3.579.2.531 [id number] 2.16840.1.9[id number] 2.16.840.1.1[id number] 2..840.1.826467.3.579.2.531 [id number] 2.16.840.1.3[id number] 2..840.1.813307.3.579.2.531 Social History DateTypeDetailFacilityUnknown if ever smokedHooper [employer] Other Start: 05-04-2024 End: 58-04-2184Yvz Assigned At [facility] [employer] Other Start: 07-07-2021 End: 68-51-1311Uingvdr smoking status NHISNever smoked tobacco (finding) [facility]: 13-18-5384Paz Assigned At [facility]tart: 04-07-5667Vglkcse use and exposure Smokeless tobacco non-userNOMS HealthcareStart: 05-04-2024 End: 99-20-2234Bzkimsksc beverage intakeDeferNOMS HealthcareStart: 05-04-2024 End: 07-11-6487Zlowygd of Social functionNOMS HealthcareStart: 81-47-3993Jli assigned at [facility]/nhrmcNot on fileNOMT HealthcareStart: 23-08-4085FzoVmkjmx (finding) [facility] Hospitaltart: 32-98-8110AhnWstbppJFWB Healthcare Medical Equipment Procedure CodeEquipment CodeEquipment Original TextEquipment IdentifierDates Start: 93-17-6119Qdszv Sugar Diagnostic (Blood Glucose Test) stripStart: 51-52-1538Kiaou Sugar Diagnostic (Blood Glucose Test) stripStart: 03-06-2024 Blood Sugar Diagnostic (Blood Glucose Test) stripStart: 03-06-2024 Clinical Notes 05-25-2021 to 07-19-2025 Note Date & GpqaMhgbXbtfyviv98-04-2810 History of Present illness Narrative* Stephon Kincaid, DPM - 07/19/2025 2:00 PM EST Images from the original note were not included. Subjective Patient ID: Salma Quan is a 89 y.o. female who presents [...] CAUDAL INJECTION DEXA KNEE SURGERY PARTIAL HYSTERECTOMY [place],CHOLECYSTECTOMY 2018 [place] LASER SURGERY OF EYE 2014 Family History [...] instructions given to call the office if questions or problems arise. The supplier standards regarding [...] understanding. Stephon Kincaid DPM documented in this encounterSaint Francis Medical [id number] NotePatient: Salma Quan Procedure Information Date/Time: 07/09/25 1100 Procedure: Right heart cath Location: [facility] FINANCIAL ACCOUNTANT 3 / [place] [facility] ([facility] Providers: Shruthi Ortega MD Clinical information reviewed: Meds OB Status Physical Exam Airway Mallampati: II TM distance: >3 FB Neck ROM: full Cardiovascular - normal exam Dental Pulmonary - normal exam Neurological Abdominal - normal exam Anesthesia Plan ASA 2 other (Conscious sedation) Anesthetic plan and risks discussed with patient. Use of blood products discussed with patient who consented to blood products. Plan discussed with attending. [facility] Subjective Patient ID: Salma Quan is a 89 y.o. female who presents for New Patient (Patient is here today to as a new patient to establish care with cardiology. Patient had a recent abnormal EKG), Hypertension, Congestive Heart Failure, Heart Murmur (Systolic ejection murmur/), and Edema (Bilateral lymphedema/). Had EKG due to beats which showed occasional APCs Uses walker at home I'm not good on my feet and I have lymphedema in L leg . Had been in group home with UTI and developed edema in legs years ago Got treatment with leg wrapping, etc and helped for a while but L leg gets pretty big Echo yesterday: mild LVH, normal LV systolic function, mildly elevated R sided pressures No chest pains. Can get a little bit of shortness of breath with activity if dose too much Hypertension Pertinent negatives include no chest pain, palpitations or shortness of breath. Congestive Heart Failure Pertinent negatives include no chest pain, palpitations or shortness of breath. Heart Murmur Pertinent negative symptoms include no chest pain and no palpitations. Edema Pertinent negative symptoms include no chest pain and no palpitations. Past medical history is significant for CHF. Review of Systems Respiratory: Negative for shortness of breath. Cardiovascular: Negative for chest pain and palpitations. Gastrointestinal: Negative for blood in stool. Genitourinary: Negative for hematuria. Neurological: Negative for syncope and light-headedness. Objective Visit Vitals BP 137/58 (BP Location: Left arm, Patient Position: Sitting) Pulse 51 Physical Exam Constitutional: Appearance: Normal appearance. She is obese. Cardiovascular: Rate and Rhythm: Normal rate and regular rhythm. Pulses: Carotid pulses are 2+ on the right side and 2+ on the left side. Radial pulses are 2+ on the right side and 2+ on the left side. Heart sounds: Murmur heard. Systolic murmur is present with a grade of 3/6. Comments: High pitched systolic murmur, loud Pitting edema extends up onto chest wall and is massive in lower extremities Pulmonary: Effort: Pulmonary effort is normal. Breath sounds: Normal breath sounds. Musculoskeletal: Right lower le+ Edema present. Left lower le+ Edema present. Skin: General: Skin is warm and dry. Neurological: Mental Status: She is alert and oriented to person, place, and time. Psychiatric: Mood and Affect: Mood normal. Behavior: Behavior normal. Assessment/Plan Mrs. Quan is interesting: by exam she has massive pitting edema onto chest wall (anasarca) however, last BNP and Cr were normal this spring and echo yesterday shows normal LV function. Will check CMP, BNP, hgb, spot urine albumin and creatinine. Plan right heart cath to assess filling pressures directly. Diagnosis Plan 1. Anasarca 2. Morbid obesity (CMS/HCC) 3. Atrial premature beats No orders of the defined types were placed in this encounter. No results found for this or any previous visit (from the past 36 hours). Follow up in about 6 weeks (around 08/18/2025).[facility]10-13-[facility] History of Present illness Narrative* Stephon Kincaid, DPM - 06/28/2025 9:30 AM EDT Images from the original note were not included. Subjective Patient ID: Salma Quan is a 89 y.o. female who presents for Diabetic Shoes. HPI This is an established patient who presents to clinic for diabetic shoe measure. Review of Systems Constitutional: Negative for activity [...] Outpatient Medications: furosemide (Lasix) 40 MG tablet, TAKE 1 & 1/2 (ONE AND ONE-HALF) TABLETS BY MOUTH DAILY, Disp: , Rfl: metOLazone (Zaroxolyn) 2.5 MG tablet, TAKE 1 TABLET BY MOUTH ONCE DAILY FOR 5 DAYS( GIVE 30 MINS PRIOR TO LASIX), Disp: , Rfl: ondansetron (Zofran) 4 MG tablet, Take 4 mg by mouth 2 (two) times a day as needed., Disp: , Rfl: potassium chloride CR (K-Tab) 20 MEQ ER tablet, Take 20 mEq by mouth in the morning. Take with food. ., Disp: , Rfl: rOPINIRole (Requip) 0.5 MG tablet, TAKE 1 TABLET BY MOUTH 1-3 HOURS BEFORE bedtime, Disp: , Rfl: Allergies Clarithromycin and Naproxen Past Surgical History Past Surgical History: Procedure Laterality Date ABLATION A-FIB BACK SURGERY 2013 BACK SURGERY 2015 BLADDER SURGERY CATARACT EXTRACTION CAUDAL INJECTION DEXA KNEE SURGERY PARTIAL HYSTERECTOMY [place],CHOLECYSTECTOMY 2018 [place] LASER SURGERY OF EYE 2014 Family History Family History Problem Relation Name Age of Onset Stomach cancer Mother Cancer Father Cancer Maternal Grandmother Objective Physical Exam Constitutional: General: She is not in acute distress. Appearance: She is obese. Comments: Presents to clinic ambulating with wheeled walker assistance. Accompanied by her daughter. Cardiovascular: Comments: DP pulse: 1/4 PT pulse: [...] type 2 diabetes mellitus (HCC) E11.42 Patient was measured for diabetic shoes. blogfosternock device was utilized and patient stood in a weightbearing position for accurate measurement. Measurements were recorded appropriately. Patient selected desired shoe style in color which was marked down on the appropriate paperwork. Diabetic shoes arerequired due to history of neuropathy, pre-ulcerative lesions as well as pedal deformities. The shoes are designed to reduce shear pressure across the foot and prevent pedal ulceration. Follow-up forshoe fitting and dispensing. This note was created with the assistance of a speech recognition program. While intending to generate a timely document that accurately reflects the content of the visit, no guarantee can be provided that every grammatical or spelling mistake has been or will be identified or corrected. Thank you for your understanding. Stephon Kincaid DPM documented in this encounterSaint Francis Medical [id number] History of Present illness Narrative* Stephon Way Tyron, DPM - 06/14/2025 2:00 PM EDT Images from the original note were not included. Subjective Patient ID: Salma Quan is a 89 y.o. female who presents for Diabetic shoe process (Salma Quan 89yo New Patient presents with her daughter Temitope, with a referral from Dr. Codi Miranda to start the diabetic shoe process. Patient is seeing Dr. Miranda every 3 months for nail care, last visit 05/04/2025. Patient relates Lyphedema left leg. Patient states diabetes is diet controlled at this time. BS 135 A1C 5.0 SS7W). HPI This is a new patient who presents to clinic via referral for diabetic shoes. Patient has had diabetic shoes previously with Dr. Miranda. She denies history of ulceration and amputation. She denies numbness, tingling sensations. She does have lymphedema bilaterally. This causes a lot of difficulty with shoe gear. Currently diet-controlled diabetic. Review of Systems Constitutional: Negative for activity [...] Outpatient Medications: furosemide (Lasix) 40 MG tablet, TAKE 1 & 1/2 (ONE AND ONE-HALF) TABLETS BY MOUTH DAILY, Disp: , Rfl: metOLazone (Zaroxolyn) 2.5 MG tablet, TAKE 1 TABLET BY MOUTH ONCE DAILY FOR 5 DAYS( GIVE 30 MINS PRIOR TO LASIX), Disp: , Rfl: ondansetron (Zofran) 4 MG tablet, Take 4 mg by mouth 2 (two) times a day as needed., Disp: , Rfl: potassium chloride CR (K-Tab) 20 MEQ ER tablet, Take 20 mEq by mouth in the morning. Take with food. ., Disp: , Rfl: rOPINIRole (Requip) 0.5 MG tablet, TAKE 1 TABLET BY MOUTH 1-3 HOURS BEFORE bedtime, Disp: , Rfl: Allergies Clarithromycin and Naproxen Past Surgical History Past Surgical History: Procedure Laterality Date ABLATION A-FIB BACK SURGERY 2013 BACK SURGERY 2015 BLADDER SURGERY CATARACT EXTRACTION CAUDAL INJECTION DEXA KNEE SURGERY PARTIAL HYSTERECTOMY [place],CHOLECYSTECTOMY 2018 [place] LASER SURGERY OF EYE 2014 Family History Family History Problem Relation Name Age of Onset Stomach cancer Mother Cancer Father Cancer Maternal Grandmother Objective Physical Exam Constitutional: General: She is not in acute distress. Appearance: She is obese. Comments: Presents to clinic ambulating with wheeled walker assistance. Accompanied by her daughter. Cardiovascular: Comments: DP pulse: 1/4 PT pulse: [...] normal. Behavior: Behavior normal. Assessment/Plan ICD-10-CM 1. Diabetic polyneuropathy associated with type 2 diabetes mellitus (HCC) E11.42 2. 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 Lymphedema I89.0 Ambulatory referral to Podiatry 4. Hammer toes of both feet M20.41 Ambulatory referral to Podiatry M20.42 5. 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 Equinus contracture of right ankle M24.571 Patient is an excellent candidate for diabetic shoes due to pedal deformities as well as neuropathyand significant lymphedema. Diabetic shoes may help to reduce the risk of ulceration going forward.We will complete the diabetic shoe paperwork and when we receive the paperwork back from the patient's primary care physician we will have the patient return for diabetic shoe measuring. This note was created with the assistance of a speech recognition program. While intending to generate a timely document that accurately reflects the content of the visit, no guarantee can be provided that every grammatical or spelling mistake has been or will be identified or corrected. Thank you for your understanding. Stephon Kincaid DPM documented in this encounterSaint Francis Medical [id number] History of Present illness Narrative* iJmmy Miranda DPM - 05/04/2025 3:15 PM EDT Images from the original note were not [...] with slow healing wounds or sores on thefeet. Patient does not have burning, tingling and [...] diabetes mellitus with other circulatory complication, without long- term current use of insulin - E11.59 Plan: [...] placed for the patient to go to [facility] in [place] for their DM shoes and inserts. 4. Patient will be contacted for appointment information once pre-certification has been completed if required. documented in this encounterSaint Francis Medical CenterXugfipwzwd44-86-7400 History of Present illness Narrative* Zulema Reid MD - 02/02/2025 3:30 PM EDT Images from the original note were not [...] KERATOSIS, INFLAMED (2) Right Dorsal Hand (2) [place] and brown stuck on verrucous scaly papule [...] office if abnormal redness or tenderness develops atthe treatment site. Cryotherapy today, see procedure note. Diagnosis: Inflamed seborrheic keratosis Indication: Inflamed Consent: Verbal consent was obtained and risks were discussed, including, but not limited to risks of scarring, darker or dental director pigmentary changes, recurrence, incomplete removal and infection. [...] Visit: pending biopsy results documented in this encounterSaint Francis Medical [id number] History of Present illness Narrative* Jimmy Miranda DPM - 01/18/2025 3:15 PM EDT Images from the original note were not [...] with slow healing wounds or sores on thefeet. Patient does not have burning, tingling and [...] diabetes mellitus with other circulatory complication, without long- term current use of insulin - E11.59 Plan: [...] needed if problems arise. documented in this encounterSaint Francis Medical [id number] History of Present illness Narrative* Jimmy Miranda DPM - 10/20/2024 2:15 PM EST Images from the original note [...] with slow healing wounds or sores on thefeet. Patient does not have burning, tingling and [...] diabetes mellitus with other circulatory complication, without long- term current use of insulin - E11.59 Plan: [...] needed if problems arise. documented in this encounterSaint Francis Medical CenterAwixvbhhta51-27-1690 History of Present illness Narrative* Jimmy Miranda DPM - 05/04/2024 3:15 PM EDT Images from the original note were not [...] with slow healing wounds or sores on thefeet. Patient does not have burning, tingling and [...] diabetes mellitus with other circulatory complication, without long- term current use of insulin - E11.59 Plan: [...] needed if problems arise. documented in this encounterSaint Francis Medical CenterSkbsmaubso03-66-5324 Evaluation note* Encounter Date Diagnosis Assessment Notes Treatment Notes Treatment Clinical Notes Jul, Cutaneous candidiasis (ICD-10 - B37.2) hydration and lubrication, dove soap, triple rinse clothing and linens Jul,Type 2 diabetes mellitus with hyperglycemia, without long-term current use of insulin (ICD-10 - E11.65)States was hypoglycemic on Januvia. will stop med and monitor glucose. Outline Other 11-09-2023 History general Narrative - Reported* Type Description Date Medical History Esophageal reflux Medical Historysleep apnea with cpapMedical HistoryLBPMedical Historyallergic rhinitisMedical Historyhypoglycemia in the morningMedical HistoryHypoglycaemia NOSMedical HistoryLUMBAR SPONDYLOSIS/RADICULOPATHYMedical HistoryHTNMedical HistoryARTHRITISMedical HistoryHLDMedical Historylactose intoleranceMedical HistoryCovid 03/2022 [place] the [place] Historyinterstitial lung disease Medical HistorybronchiectesisSurgical Historybladder surgerySurgical History partial hysterectomySurgical Historyarthroscopic knee surgerySurgical History fsdmssye65/2010Surgical Eullztdgfyr70/2009Surgical Historyback Leelsvs50-2088 Surgical HistoryBilateral cataract surgerySurgical HistoryLaser Eye [id number] Surgical HistoryLumbar decompressive apzlzop9796Wkdnncdn Historycholecystectomy 2017Surgical HistoryAblation- [id number] Historyback kofpybyld14/2021 Hospitalization HistoryhysterectomyHospitalization Historybladder surgery Hospitalization HistorySEE ABOVEHospitalization HistoryFR-asmiomtkoglxtdn7623 Hospitalization [id number] HistoryTBH then Will Hospitalization HistoryTBH then Will Outline Other 11-08-2023 Evaluation note* Encounter Date Diagnosis Assessment Notes Treatment Notes Treatment Clinical Notes Jul, Weakness (ICD-10 - R53.1) Pt was unable to collect a urine sample in the office today. Orders given to take to [facility] to collect a sample. Discussed will call with results as soon as available. Pt, pt daughter and verbalzies understanding and agrees to plan of care. Jul,hills (ICD-10 - R68.83) Jul,Frequent UTI (ICD-10 - N39.0) Outline Other 10-31-2023 Evaluation note* Encounter Date Diagnosis Assessment Notes Treatment Notes Treatment Clinical Notes Jun, Type 2 diabetes estuardo itus with hyperglycemia, without long-term current use of insulin (ICD-10 - E11.65) Glucose in office was 591. Stop metformin. It could cause diarrhea. Pt not amenable to lantus and injections and doesn't thinkher could help her either. Will check glucose daily. Samples Januvia given. Followup in a few weeks and will call in 10 days w home glucose levels. Jun,Frequent UTI (ICD-10 - N39.0)Keflex could cause diarrhea. Switch to macrobid. Pt is very fearful of UTI as she has been in nursing homes several times, will change. Jun,ack spasm (ICD-10 - M62.830)Pt requests med to take at bedtime only. States back pain is improved from 06/28 OV. Outline Other 10-31-2023 Evaluation note* Encounter Date Diagnosis Assessment Notes Treatment Notes Treatment Clinical Notes Jun, Cough (ICD-10 - R05.9) Jun,Interstitial lung disease (ICD-10 - J84.9)Your breathing test showed minimal change since 06/15/2022. Will observe respiratory symptoms and order testing if and when needed. Jun,neumonitis (ICD-10 - J18.9) Jun,ronchiectasis 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 (ICD-10 - J47.9) Outline Other 10-31-2023 History general Narrative - Reported* Type Description Date Medical History Esophageal reflux Medical Historysleep apnea with cpapMedical HistoryLBPMedical Historyallergic rhinitisMedical Historyhypoglycemia in the morningMedical HistoryHypoglycaemia NOSMedical HistoryLUMBAR SPONDYLOSIS/RADICULOPATHYMedical HistoryHTNMedical HistoryARTHRITISMedical HistoryHLDMedical Historylactose intoleranceMedical HistoryCovid 03/2022 [place] the [place]Medical Historyinterstitial lung disease Medical HistorybronchiectesisSurgical Historybladder surgerySurgical History partial hysterectomySurgical Historyarthroscopic knee surgerySurgical History zllyjcxe63/2009Surgical Ldgmhqmutyp11/2009Surgical Historyback Rpqpyoa38-9425 Surgical HistoryBilateral cataract surgerySurgical HistoryLaser Eye [id number] Surgical HistoryLumbar decompressive ryfthby9437Wglraoeo Historycholecystectomy 2018Surgical HistoryAblation- [id number] Historyback qhremuerh13/2021 Hospitalization HistoryhysterectomyHospitalization Historybladder surgery Hospitalization History[facility] History[facility] [place]-fqzsjaixulzasih2056 Hospitalization JfbuoogJKP4329Pnfnuojfyduqbgm HistoryTBH then ows02/2022 Hospitalization HistoryTBH then Outline Other 09-07-2023 History general Narrative - Reported* Type Description Date Medical History Esophageal reflux Medical Historysleep apnea with cpapMedical HistoryLBPMedical Historyallergic rhinitisMedical Historyhypoglycemia in the morningMedical HistoryHypoglycaemia NOSMedical HistoryLUMBAR SPONDYLOSIS/RADICULOPATHYMedical HistoryHTNMedical HistoryARTHRITISMedical HistoryHLDMedical Historylactose intoleranceMedical HistoryCovid 03/2022 [place] the [place]Surgical Historybladder surgerySurgical Historypartial hysterectomySurgical Historyarthroscopic knee surgerySurgical Twkpxjuwudiebiq60/2009Surgical Gkprcqjyfwd56/2009Surgical Historyback Surgery -2012Surgical HistoryBilateral cataract surgerySurgical HistoryLaser Eye mlyxvfd8652Nzwuhcay HistoryLumbar decompressive vqkpysn3123Rkyjmwag History wauytxjfuzblfwt2385Djokhlmv HistoryAblation- Ksih7609Mttnjfvm Historyback nregbmkde92/2021Hospitalization HistoryhysterectomyHospitalization History bladder surgeryHospitalization HistorySEE ABOVEHospitalization History [facility] [place]-pjokdcfiqmwkacz4955Liqigvpuqzfroop AhdqesaDQB8533Hjdtccrkuxuqkxy HistoryTBH then Hospitalization HistoryTBH then Outline Other 09-06-2023 History general Narrative - Reported* Type Description Date Medical History Esophageal reflux Medical Historysleep apnea with cpapMedical HistoryLBPMedical Historyallergic rhinitisMedical Historyhypoglycemia in the morningMedical HistoryHypoglycaemia NOSMedical HistoryLUMBAR SPONDYLOSIS/RADICULOPATHYMedical HistoryHTNMedical HistoryARTHRITISMedical HistoryHLDMedical Historylactose intoleranceMedical HistoryCovid 03/2022 [place] the [place]Surgical Historybladder surgerySurgical Historypartial hysterectomySurgical Historyarthroscopic knee surgerySurgical Lpdtjyvzeagkvma71/2010Surgical Lrtgcgnmkoj52/2009Surgical Historyback Surgery Surgical HistoryBilateral cataract surgerySurgical HistoryLaser Eye oqztljj6555Qufxypeg HistoryLumbar decompressive xgnxitv8002Jqpwmuiq History ihaywmgjreglths8858Rvowmfug HistoryAblation- Lagd5333Dwsquyrf Historyback wnymzjzqw32/2021Hospitalization HistoryhysterectomyHospitalization History bladder surgeryHospitalization HistorySEE ABOVEHospitalization History [facility] [place]-wvfrpxflsexfmbd1263Hoyypwlgprlbcox PutnblcLDY9269Klptodsqltruduy HistoryTBH then Hospitalization HistoryTBH then Outline Other 08-21-2023 History general Narrative - Reported* Type Description Date Medical History Esophageal reflux Medical Historysleep apnea with cpapMedical HistoryLBPMedical Historyallergic rhinitisMedical Historyhypoglycemia in the morningMedical HistoryHypoglycaemia NOSMedical HistoryLUMBAR SPONDYLOSIS/RADICULOPATHYMedical HistoryHTNMedical HistoryARTHRITISMedical HistoryHLDMedical Historylactose intoleranceMedical HistoryCovid 03/2022 [place]Surgical Historybladder surgerySurgical Historypartial hysterectomySurgical Historyarthroscopic knee surgerySurgical Inyfnlipliwlhyq16/2009Surgical Ojybxhkjuyq46/2009Surgical Historyback Surgery Surgical HistoryBilateral cataract surgerySurgical HistoryLaser Eye ertdjxt3532Tbwjjmxm HistoryLumbar decompressive ddcheoz6882Fxloobsj History eegqpcdlaydctvg8369Kmcsttxo HistoryAblation- Vxic5867Dgxmzrdh Historyback xpegfngdl80/2021Hospitalization HistoryhysterectomyHospitalization History bladder surgeryHospitalization HistorySEE ABOVEHospitalization History [facility] [place]-jcbzyttlpqzdhjb7036Reuyelsyhclrxkt BisxjwrOQZ3120Jesojzkgjgnkrsl HistoryTBH then [place]/2022Hospitalization HistoryTBH then [place]09/2021 Outline Other 08-11-2023 Evaluation note* Encounter Date Diagnosis Assessment Notes Treatment Notes Treatment Clinical Notes Apr, Indigestion (ICD-10 - K30) Apr,Weakness (ICD-10 - R53.1)PT has HH and PT. She is improving. reviewed medications We discussed and demonstrated gentle ankle motion exericse as well as gentle weight bearing strengthening exercise Apr,Type 2 diabetes mellitus with hyperglycemia, without long-term current use of insulin (ICD-10 - E11.65)Healthy diet and exercise encouraged. Weight loss helps to reduce blood sugars and A1C. Wear supportive shoes, avoid open toed shoes. Check feet daily. Outline Other 08-11-2023 Evaluation note* Encounter Date Diagnosis Assessment Notes Treatment Notes Treatment Clinical Notes Apr, Indigestion (ICD-10 - K30) This is a chronic problem Pt states it is successfully controlled with zofran. She declines furthertesting or GI referral. Will continue to monitor. Apr,Weakness (ICD-10 - R53.1)PT has HH and PT. She is improving. reviewed medications We discussed and demonstrated gentle ankle motion exericse as well as gentle weight bearing strengthening exercise Apr,Type 2 diabetes mellitus with hyperglycemia, without long-term current use of insulin (ICD-10 - E11.65)Healthy diet and exercise encouraged. Weight loss helps to reduce blood sugars and A1C. Wear supportive shoes, avoid open toed shoes. Check feet daily. Outline Other 08-03-2023 History general Narrative - Reported* Type Description Date Medical History Esophageal reflux Medical Historysleep apnea with cpapMedical HistoryLBPMedical Historyallergic rhinitisMedical Historyhypoglycemia in the morningMedical HistoryHypoglycaemia NOSMedical HistoryLUMBAR SPONDYLOSIS/RADICULOPATHYMedical HistoryHTNMedical HistoryARTHRITISMedical HistoryHLDMedical Historylactose intoleranceMedical HistoryCovid 03/2022 [place]Surgical Historybladder surgerySurgical Historypartial hysterectomySurgical Historyarthroscopic knee surgerySurgical Syudddltcuhgpmh83/2010Surgical Ndsgspyfyaf95/2010Surgical Historyback Surgery Surgical HistoryBilateral cataract surgerySurgical HistoryLaser Eye iojzqpb1856Ylxhccvu HistoryLumbar decompressive pwqafbo2240Augrkdsp History vqtqalftmlgxedm4735Mykpwtwh HistoryAblation- Fyhr0792Ubdjzskl Historyback mtotqhtyw33/2021Hospitalization HistoryhysterectomyHospitalization History bladder surgeryHospitalization HistorySEE ABOVEHospitalization History [facility] [place]-makplsflzdxbecn4892Vdlqkdvpqgokqel TphjihlDSQ7985Kmvrorcukpkkdyk HistoryTBH then WillHospitalization HistoryTBH then Will Outline Other 08-01-2023 History general Narrative - Reported* Type Description Date Medical History Esophageal reflux Medical Historysleep apnea with cpapMedical HistoryLBPMedical Historyallergic rhinitisMedical Historyhypoglycemia in the morningMedical HistoryHypoglycaemia NOSMedical HistoryLUMBAR SPONDYLOSIS/RADICULOPATHYMedical HistoryHTNMedical HistoryARTHRITISMedical HistoryHLDMedical Historylactose intoleranceMedical HistoryCovid 03/2022 [place]Surgical Historybladder surgerySurgical Historypartial hysterectomySurgical Historyarthroscopic knee surgerySurgical Gmpetfskvedndnp20/2010Surgical Sgugmutsypq33/2010Surgical Historyback Surgery Surgical HistoryBilateral cataract surgerySurgical HistoryLaser Eye ehdcmtv2888Chduwkcx HistoryLumbar decompressive nxiihjq6879Xnijigfq History ibsyzxdmexzrzgr1480Kmwzbkyt HistoryAblation- Ywar7668Iytedrlr Historyback txdpigqgf26/2021Hospitalization HistoryhysterectomyHospitalization History bladder surgeryHospitalization HistorySEE ABOVEHospitalization History [facility]-negyenxnhdcrtox2157Cvtevdczyhjxndu UqjtugzTCS6070Lebdesszyzpvmql HistoryTBH then Hospitalization HistoryTBH then Outline Other 07-19-2023 Evaluation note* Encounter Date Diagnosis Assessment Notes Treatment Notes Treatment Clinical Notes Mar, Type 2 diabetes estuardo itus 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, unspecified whether correction insulin use (ICD-10 - E11.9) Outline Other 07-03-2023 Evaluation note* Encounter Date Diagnosis Assessment Notes Treatment Notes Treatment Clinical Notes Mar, Type 2 diabetes estuardo itus 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, unspecified whether predatory animal exterminator insulin use (ICD-10 - E11.9) Outline Other 07-03-2023 History general Narrative - Reported* Type Description Date Medical History Esophageal reflux Medical Historysleep apnea with cpapMedical HistoryLBPMedical Historyallergic rhinitisMedical Historyhypoglycemia in the morningMedical HistoryHypoglycaemia NOSMedical HistoryLUMBAR SPONDYLOSIS/RADICULOPATHYMedical HistoryHTNMedical HistoryARTHRITISMedical HistoryHLDMedical Historylactose intoleranceMedical HistoryCovid 03/2022 [facility] Historybladder surgerySurgical Historypartial hysterectomySurgical Historyarthroscopic knee surgerySurgical Gyucekwelepyqco08/2010Surgical Zydldyoeqrz81/2009Surgical Historyback Surgery Surgical HistoryBilateral cataract surgerySurgical HistoryLaser Eye puuktgw7960Bcxclbzb HistoryLumbar decompressive atskjra5973Grcohmzz History zuufklsjitwqglt6118Tghlkvyq HistoryAblation- Wqix6178Lljeyubf Historyback cfvskprku17/2021Hospitalization HistoryhysterectomyHospitalization History bladder surgeryHospitalization HistorySEE ABOVEHospitalization History [facility] [place]-jbjgolvfmdyxdvf8990Vwkoqiofalbngyc GffumjpDJU5641Ehrpiitufwbmltt HistoryTBH then WillHospitalization HistoryTBH then Will Outline Other 06-23-2023 History general Narrative - Reported* Type Description Date Medical History Esophageal reflux Medical Historysleep apnea with cpapMedical HistoryLBPMedical Historyallergic rhinitisMedical Historyhypoglycemia in the morningMedical HistoryHypoglycaemia NOSMedical HistoryLUMBAR SPONDYLOSIS/RADICULOPATHYMedical HistoryHTNMedical HistoryARTHRITISMedical HistoryHLDMedical Historylactose intoleranceMedical HistoryCovid 03/2022 [place] Historybladder surgerySurgical Historypartial hysterectomySurgical Historyarthroscopic knee surgerySurgical Wrvvtmognpsiyzi42/2010Surgical Jkekfkttmlw79/2010Surgical Historyback Surgery -2012Surgical HistoryBilateral cataract surgerySurgical HistoryLaser Eye ospfjgj8725Wnscenmu HistoryLumbar decompressive doogjkl4212Vtgpxnxf History vxsifhhnhsbaook3464Rjshzdjy HistoryAblation- Luvy9341Grzmgcpu Historyback tcfsteohx71/2021Hospitalization HistoryhysterectomyHospitalization History bladder surgeryHospitalization HistorySEE ABOVEHospitalization History [facility] [place]-qjpxviubbonmkcy3531Hlicxoxfngktric EyosqthBNV6257Zdqtkjijpnmhqkr HistoryTBH then Hospitalization HistoryTBH then Outline Other 06-20-2023 History general Narrative - Reported* Type Description Date Medical History Esophageal reflux Medical Historysleep apnea with cpapMedical HistoryLBPMedical Historyallergic rhinitisMedical Historyhypoglycemia in the morningMedical HistoryHypoglycaemia NOSMedical HistoryLUMBAR SPONDYLOSIS/RADICULOPATHYMedical HistoryHTNMedical HistoryARTHRITISMedical HistoryHLDMedical Historylactose intoleranceMedical HistoryCovid 03/2022 [place] Historybladder surgerySurgical Historypartial hysterectomySurgical Historyarthroscopic knee surgerySurgical Frkpgadagyoootx15/2010Surgical Ofvqspqbwjb36/2009Surgical Historyback Surgery -2012Surgical HistoryBilateral cataract surgerySurgical HistoryLaser Eye agusitq5611Nhfmfzze HistoryLumbar decompressive egxcklj3543Njizphyz History rivjqmyxupnqdlr3038Vrcmkfbd HistoryAblation- Enoi9892Waowxcyj Historyback sjriqeogz55/2021Hospitalization HistoryhysterectomyHospitalization History bladder surgeryHospitalization HistorySEE ABOVEHospitalization History [facility] [place]-cjsiuzttxojccwg4842Lrhsgvngxjpvflm DndxgkdAII4357Jrzjkabxozdjkkh HistoryTBH then Hospitalization HistoryTBH then Outline Other 06-17-2023 History general Narrative - Reported* Type Description Date Medical History Esophageal reflux Medical Historysleep apnea with cpapMedical HistoryLBPMedical Historyallergic rhinitisMedical Historyhypoglycemia in the morningMedical HistoryHypoglycaemia NOSMedical HistoryLUMBAR SPONDYLOSIS/RADICULOPATHYMedical HistoryHTNMedical HistoryARTHRITISMedical HistoryHLDMedical Historylactose intoleranceMedical HistoryCovid 03/2022 [place] the [place] Historybladder surgerySurgical Historypartial hysterectomySurgical Historyarthroscopic knee surgerySurgical Fzisvhjlrctweuh82/2009Surgical Gqagayzrcqu50/2009Surgical Historyback Surgery Surgical HistoryBilateral cataract surgerySurgical HistoryLaser Eye rwjwrif6894Cnzxpajz HistoryLumbar decompressive ghoazrn7388Lobnlzae History hwqxbfmmjpmphlt4941Vuutvwcj HistoryAblation- Zqrz5765Gcjqpmqp Historyback tqnvkjads58/2021Hospitalization HistoryhysterectomyHospitalization History bladder surgeryHospitalization HistorySEE ABOVEHospitalization History [facility] [place]-nggrkadletpxrqv9595Sjiezvzorrhpfhu UtmqhqcMHT8402Fwawujqwrnttflw HistoryTBH then Hospitalization HistoryTBH then Outline Other 06-12-2023 Evaluation note* Encounter Date Diagnosis Assessment Notes Treatment Notes Treatment Clinical Notes Feb, Frequent UTI (ICD-10 - N39.0) Discussed prophylactic treatment to prevent UTIs. Consider urology referral in future. Feb,RLS (restless legs syndrome) (ICD-10 - G25.81)requests refill. Feb,neumonitis (ICD-10 - J18.9)Obtain chest xray for followup. Scheduled for PFT but doesn't really want to do it. Will reach out to pulm clinic. Feb,Nausea without vomiting (ICD-10 - R11.0)cover with zofran. Outline Other 05-12-2023 History general Narrative - Reported* Type Description Date Medical History Esophageal reflux Medical Historysleep apnea with cpapMedical HistoryLBPMedical Historyallergic rhinitisMedical Historyhypoglycemia in the morningMedical HistoryHypoglycaemia NOSMedical HistoryLUMBAR SPONDYLOSIS/RADICULOPATHYMedical HistoryHTNMedical HistoryARTHRITISMedical HistoryHLDMedical Historylactose intoleranceMedical HistoryCovid 03/2022 [place] Historybladder surgerySurgical Historypartial hysterectomySurgical Historyarthroscopic knee surgerySurgical Rrepfvxgmyjykju70/2010Surgical Zprzhyhzgqe40/2010Surgical Historyback Surgery Surgical HistoryBilateral cataract surgerySurgical HistoryLaser Eye xrdhejy3201Xfugspoy HistoryLumbar decompressive dykhaif4217Avgkqsom History mjtpckkeytcjuqn8796Sacpylbs HistoryAblation- Oqxi3284Qwswqbsa Historyback kykimvcci04/2021Hospitalization HistoryhysterectomyHospitalization History bladder surgeryHospitalization HistorySEE ABOVEHospitalization History [facility] [place]-hmfhmybcxosuhju6122Ngydrlgxifcdztw JvofzrxVTL1388Ncaqqtrxsdxoydy HistoryTBH then WillHospitalization HistoryTBH then Will Outline Other 05-08-2023 Evaluation note* Encounter Date Diagnosis Assessment Notes Treatment Notes Treatment Clinical Notes January, Type 2 diabetes estuardo itus 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, unspecified whether predatory animal exterminator insulin use (ICD-10 - E11.9) January,Essential hypertension (ICD-10 - I10) January,ependent edema (ICD-10 - R60.9) Outline Other 05-05-2023 History general Narrative - Reported* Type Description Date Medical History Esophageal reflux Medical Historysleep apnea with cpapMedical HistoryLBPMedical Historyallergic rhinitisMedical Historyhypoglycemia in the morningMedical HistoryHypoglycaemia NOSMedical HistoryLUMBAR SPONDYLOSIS/RADICULOPATHYMedical HistoryHTNMedical HistoryARTHRITISMedical HistoryHLDMedical Historylactose intoleranceMedical HistoryCovid 03/2022 [place] Historybladder surgerySurgical Historypartial hysterectomySurgical Historyarthroscopic knee surgerySurgical Uszxugavcscbaos54/2010Surgical Vngpquiydhe36/2010Surgical Historyback Surgery Surgical HistoryBilateral cataract surgerySurgical HistoryLaser Eye tdxblvu9149Fwtxrtek HistoryLumbar decompressive geqjiia1107Knkmbuuh History mukprsrvotviqrm8465Pzflfyyq HistoryAblation- Ojhk0984Vtcabfsx Historyback kestsbfhi73/2021Hospitalization HistoryhysterectomyHospitalization History bladder surgeryHospitalization HistorySEE ABOVEHospitalization History [facility] [place]-jakotyyrcrunkkp3420Sxlrvoipvoclwnv JzrwvsrGWN4910Xtomlcutnfvoyzg HistoryTBH then Hospitalization HistoryTBH then Outline Other 05-04-2023 Evaluation note* Encounter Date Diagnosis Assessment Notes Treatment Notes Treatment Clinical Notes January, Essential hypertension (ICD-10 - I10) Patient continues to do well with management of hypertension.Reviewed importance of nonpharmacologic treatment measures including excercise, diet, weight control. Currently meets AHA criteria for controlled hypertension. Criteria for medication adjustments reviewed. Taking all meds as directed reinforced. January,iabetes (ICD-10 - E11.9)RX refilled A1C remains stable at this time, 6.5 on 12/06/22. Patient advised goal is to maintain 6.5 -7.5. Patient advised to maintain a healthy weight and continue to manage diet in order to avoid hypoglycemic episodes. Patient tolerating current medications well. We will continue to monitor every3 months. January,astroesophageal reflux disease, unspecified whether esophagitis present (ICD-10 - K21.9) GERD remains stable. Importance of meal timing and content reviewed. Avoid over eating and late meals. Pay attention to changes in appetite, weight, and bowel functions. January,Nausea (ICD-10 - R11.0)RX refilled January,Interstitial lung disease (ICD-10 - J84.9)symptoms remain unchanged at this time. Pay attention to any changes in shortness of breath. Patient should continue with the above and we will continue to monitor. F/U with Pulmonology 04/23/23 as scheduled January,Suspected urinary tract infection (ICD-10 - R39.89) Outline Other 04-26-2023 History general Narrative - Reported* Type Description Date Medical History Esophageal reflux Medical Historysleep apnea with cpapMedical HistoryLBPMedical Historyallergic rhinitisMedical Historyhypoglycemia in the morningMedical HistoryHypoglycaemia NOSMedical HistoryLUMBAR SPONDYLOSIS/RADICULOPATHYMedical HistoryHTNMedical HistoryARTHRITISMedical HistoryHLDMedical Historylactose intoleranceMedical HistoryCovid 03/2022 [place] Historybladder surgerySurgical Historypartial hysterectomySurgical Historyarthroscopic knee surgerySurgical Hwrtynbndrwepda88/2010Surgical Uguslczdhtx83/2010Surgical Historyback Surgery -2012Surgical HistoryBilateral cataract surgerySurgical HistoryLaser Eye gsfduxu6015Pduxfgef HistoryLumbar decompressive djvdmaj9115Mjxjdfnk History zcohhfmtxjpcrlj0848Hftpxoxk HistoryAblation- Xkyj4601Jcgidnhj Historyback xelzolehc84/2021Hospitalization HistoryhysterectomyHospitalization History bladder surgeryHospitalization HistorySEE ABOVEHospitalization History [facility] [place]-dobciaccykcrisd4182Alluwcudcsewckt LgrqmyfZND7897Ctrhnddqekfdiyd HistoryTBH then WillHospitalization HistoryTBH then Outline Other 04-25-2023 History general Narrative - Reported* Type Description Date Medical History Esophageal reflux Medical Historysleep apnea with cpapMedical HistoryLBPMedical Historyallergic rhinitisMedical Historyhypoglycemia in the morningMedical HistoryHypoglycaemia NOSMedical HistoryLUMBAR SPONDYLOSIS/RADICULOPATHYMedical HistoryHTNMedical HistoryARTHRITISMedical HistoryHLDMedical Historylactose intoleranceMedical HistoryCovid 03/2022 [place] Historybladder surgerySurgical Historypartial hysterectomySurgical Historyarthroscopic knee surgerySurgical Jhvnwfwcvlxypzr33/2010Surgical Mhdfyaopuxi89/2010Surgical Historyback Surgery Surgical HistoryBilateral cataract surgerySurgical HistoryLaser Eye oozymmq4074Icwttjnx HistoryLumbar decompressive udyxrvm7899Eluolgfc History fcfzzgjyhnnecxc0778Tonkmjwl HistoryAblation- Uyxu3171Bsrdyilz Historyback wnmynkueg27/2021Hospitalization HistoryhysterectomyHospitalization History bladder surgeryHospitalization HistorySEE ABOVEHospitalization History [facility] [place]-aqaxuaniyimghwi8722Gycyvifsblzgpgc IqcdzuiAUU1647Vhpyefbzrrlmwqr HistoryTBH then Hospitalization HistoryTBH then Outline Other 04-20-2023 Evaluation note* Encounter Date Diagnosis Assessment Notes Treatment Notes Treatment Clinical Notes Dec, Suspected urinary tract infectio n (ICD-10 - R39.89) She is advised to push the fluids, her urine doesnt worry me, she doesnt have a significant infection. I would like to treat the trush. Dec,Leg edema (ICD-10 - R60.0)She is to elevate her legs throughout the day. She will be attending Dr. Whyte for stockings and shoes. Dec,Thrush (ICD-10 - B37.0)I would like to order Magic Mouthwash, she is to swish and swollow four times a day. Magic Mouthwash was called into [employer]. Dec,ERD (gastroesophageal reflux disease) (ICD-10 - K21.9) Dec,Type 2 diabetes mellitus 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, unspecified whether predatory animal exterminator insulin use (ICD-10 - E11.9) Type 2 DM remains reasonably well controlled. Sugar logs reviewed. Medications verified. No patterns of poor control. We reviewed the importance of medication compliance, meal timing as well as content and the need for a bedtime snack. We talked about current medication specifically. We reviewed comorbidities associated with type 2 DM including HTN, CAD, dyslipidemia. Dec,Essential hypertension (ICD-10 - I10) Patient continues to do well with management of hypertension.Reviewed importance of nonpharmacologic treatment measures including excercise, diet, weight control. Currently meets AHA criteria for controlled hypertension. Criteria for medication adjustments reviewed. Taking all meds as directed reinforced. Outline Other [id number] History general Narrative - Reported* Type Description Date Medical History Esophageal reflux Medical Historysleep apnea with cpapMedical HistoryLBPMedical Historyallergic rhinitisMedical Historyhypoglycemia in the morningMedical HistoryHypoglycaemia NOSMedical HistoryLUMBAR SPONDYLOSIS/RADICULOPATHYMedical HistoryHTNMedical HistoryARTHRITISMedical HistoryHLDMedical Historylactose intoleranceMedical HistoryCovid 03/2022 [place] the [place]urgical Historybladder surgerySurgical Historypartial hysterectomySurgical Historyarthroscopic knee surgerySurgical Aasbfwetgnujxmo84/2010Surgical Tzfiedudkzx72/2010Surgical Historyback Surgery -2012Surgical HistoryBilateral cataract surgerySurgical HistoryLaser Eye drmlmxa4840Rpmwyphv HistoryLumbar decompressive ghhyzsy2029Xfqkkmgo History gyiybqcbludxdom0747Okpmhfkc HistoryAblation- Nodt5716Maiynjjy Historyback jenclsdiv94/2021Hospitalization HistoryhysterectomyHospitalization History bladder surgeryHospitalization HistorySEE ABOVEHospitalization History [facility] [place]-wvvbftaypgfkxxz2814Lpvlhefksipndoq FsalexnPCS2053Exqcyjjskcyusgq HistoryTBH then WillHospitalization HistoryTBH then Outline Other 04-14-2023 History general Narrative - Reported* Type Description Date Medical History Esophageal reflux Medical Historysleep apnea with cpapMedical HistoryLBPMedical Historyallergic rhinitisMedical Historyhypoglycemia in the morningMedical HistoryHypoglycaemia NOSMedical HistoryLUMBAR SPONDYLOSIS/RADICULOPATHYMedical HistoryHTNMedical HistoryARTHRITISMedical HistoryHLDMedical Historylactose intoleranceMedical HistoryCovid 03/2022 [place] the [place] Historybladder surgerySurgical Historypartial hysterectomySurgical Historyarthroscopic knee surgerySurgical Uskymjzuwggggng84/2010Surgical Bjigieflqvx62/2010Surgical Historyback Surgery Surgical HistoryBilateral cataract surgerySurgical HistoryLaser Eye rwbtimc4431Rxjaiayp HistoryLumbar decompressive oapgicd7018Wbhzgtka History crwoaksljnmvjwf0475Kmwqbtqq HistoryAblation- Xknp9143Kfheirik Historyback aadqnrqpx19/2021Hospitalization HistoryhysterectomyHospitalization History bladder surgeryHospitalization HistorySEE ABOVEHospitalization History [facility] [place]-yitigvakmopqvzu5795Wrliwyvwyoesxnj SztzmpwCTD0658Ogjdhisojgpnrea HistoryTBH then Hospitalization HistoryTBH then Outline Other 04-06-2023 Evaluation note* Encounter Date Diagnosis [...] or dependent edema, no signs of CHF. Dec,Essential hypertension (ICD-10 - I10) Continue losartan 25 mg p.o. daily. Patient continues to do well with management of hypertension.Reviewed importance of nonpharmacologic treatment measures including excercise, diet, weight control. Currently meets AHA criteria for controlled hypertension. Criteria for medication adjustments reviewed. Taking all meds as directed reinforced. Dec,Type 2 diabetes mellitus 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, unspecified whether predatory animal exterminator insulin use (ICD-10 - E11.9) Type 2 DM remains reasonably well controlled. Sugar logs reviewed. Medications verified. No patterns of poor control. We reviewed the importance of medication compliance, meal timing as well as content and the need for a bedtime snack. We talked about current medication specifically. We reviewed comorbidities associated with type 2 DM including HTN, CAD, dyslipidemia. Dec,RLS (restless legs syndrome) (ICD-10 - G25.81)Continues to have nocturnal restless leg syndrome. Symptoms vary from day-to-day. For the most part, does well with her Mirapex which we will continue in its present dose. Dec,Interstitial lung disease (ICD-10 - J84.9)History of interstitial lung disease. Followed consistently by pulmonology. Recent pulmonology visit showed stability. Outline Other 04-05-2023 History general Narrative - Reported* Type Description Date Medical History Esophageal reflux Medical Historysleep apnea with cpapMedical HistoryLBPMedical Historyallergic rhinitisMedical Historyhypoglycemia in the morningMedical HistoryHypoglycaemia NOSMedical HistoryLUMBAR SPONDYLOSIS/RADICULOPATHYMedical HistoryHTNMedical HistoryARTHRITISMedical HistoryHLDMedical Historylactose intoleranceMedical HistoryCovid 03/2022 [place] Historybladder surgerySurgical Historypartial hysterectomySurgical Historyarthroscopic knee surgerySurgical Vznnpagtjyskyxl87/2010Surgical Beojfnurqjf54/2010Surgical Historyback Surgery Surgical HistoryBilateral cataract surgerySurgical HistoryLaser Eye imfwdar2995Womwyxaf HistoryLumbar decompressive gxwamtr3378Hhjzcydu History nrlljwrxytwypkb7387Rtoxwebs HistoryAblation- Jjbe0201Vvxscudd Historyback seggfzalb36/2021Hospitalization HistoryhysterectomyHospitalization History bladder surgeryHospitalization History[facility]OVEHospitalization History [facility] [place]-devdsrchqbzhbij0827Qaxaoryhzuzxbgj CxpolagXQE2446Rkzrcensiwyudrm HistoryTBH then Hospitalization HistoryTBH then Outline Other 04-04-2023 Evaluation note* Encounter Date Diagnosis Assessment Notes Treatment Notes Treatment Clinical Notes Dec, Cough (ICD-10 - R05.9) Dec,Interstitial lung disease (ICD-10 - J84.9)Call office if increased cough occurs or shortness of breath. Dec,neumonitis (ICD-10 - J18.9) Dec,ronchiectasis 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 (ICD-10 - J47.9) Dec,OtherNotifiy family doctor about increased LE edema, unable to wear shoes. Outline Other 03-31-2023 History general Narrative - Reported* Type Description Date Medical History Esophageal reflux Medical Historysleep apnea with cpapMedical HistoryLBPMedical Historyallergic rhinitisMedical Historyhypoglycemia in the morningMedical HistoryHypoglycaemia NOSMedical HistoryLUMBAR SPONDYLOSIS/RADICULOPATHYMedical HistoryHTNMedical HistoryARTHRITISMedical HistoryHLDMedical Historylactose intoleranceMedical HistoryCovid 03/2022 while in the Surgical Historybladder surgerySurgical Historypartial hysterectomySurgical Historyarthroscopic knee surgerySurgical Kxmvhgmrddcmaas46/2010Surgical Zmczhcicfck01/2010Surgical Historyback Surgery Surgical HistoryBilateral cataract surgerySurgical HistoryLaser Eye btjfcpn5963Mdnozkun HistoryLumbar decompressive mcetmep2191Wnhvcmzb History irwfxyxtkesbarc1790Ptuapifx HistoryAblation- Ewvm0333Nmegxxdb Historyback ithsayiqq51/2021Hospitalization HistoryhysterectomyHospitalization History bladder surgeryHospitalization HistorySEE [facility]OVEHospitalization History [facility] [place]-wijtcfddmdcqfbi6995Rwhlwdpgotymiku JwagpxlREI2679Xvtelwvpktvdabv HistoryTBH then WillHospitalization HistoryTBH then Outline Other 03-24-2023 History general Narrative - Reported* Type Description Date Medical History Esophageal reflux Medical Historysleep apnea with cpapMedical HistoryLBPMedical Historyallergic rhinitisMedical Historyhypoglycemia in the morningMedical HistoryHypoglycaemia NOSMedical HistoryLUMBAR SPONDYLOSIS/RADICULOPATHYMedical HistoryHTNMedical HistoryARTHRITISMedical HistoryHLDMedical Historylactose intoleranceMedical HistoryCovid 03/2022 [place] the [place]urgical Historybladder surgerySurgical Historypartial hysterectomySurgical Historyarthroscopic knee surgerySurgical Abfwsvpgzbimdtr57/2010Surgical Chavyhcerzv06/2010Surgical Historyback Surgery Surgical HistoryBilateral cataract surgerySurgical HistoryLaser Eye jdldhlf9702Itdtuqtu HistoryLumbar decompressive ujjmmdm9604Xgwnpeqe History iezmvcuqhldszrc8043Kbkmzcvd HistoryAblation- Uhzp9848Xacznizv Historyback sqthwbujy55/2021Hospitalization HistoryhysterectomyHospitalization History bladder surgeryHospitalization HistorySEE [facility]OVEHospitalization History [facility] [place]-uobixvohakafhlb4253Vqkkyeqijgvkhym KvvyzbzOKM9717Mremapoifbziupf HistoryTBH then Hospitalization HistoryTBH then Outline Other 03-23-2023 Evaluation note* Encounter Date Diagnosis Assessment Notes Treatment Notes Treatment Clinical Notes Nov, Essential hypertension (ICD-10 - I10) Patient continues to do well with management of hypertension.Reviewed importance of nonpharmacologic treatment measures including excercise, diet, weight control. Currently meets AHA criteria for controlled hypertension. Criteria for medication adjustments reviewed. Taking all meds as directed reinforced. Nov,astroesophageal reflux disease, unspecified whether esophagitis present (ICD-10 - K21.9) GERD remains stable. Importance of meal timing and content reviewed. Avoid over eating and late meals. Pay attention to changes in appetite, weight, and bowel functions. Nov,Type 2 diabetes mellitus 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, unspecified whether correction insulin use (ICD-10 - E11.9) Type 2 DM remains reasonably well controlled. Sugar logs reviewed. Medications verified. No patterns of poor control. We reviewed the importance of medication compliance, meal timing as well as content and the need for a bedtime snack. We talked about current medication specifically. We reviewed comorbidities associated with type 2 DM including HTN, CAD, dyslipidemia. Nov,RLS (restless legs syndrome) (ICD-10 - G25.81)stable, no intervention at this time Nov,nxiety (ICD-10 - F41.9)Patient encouraged to manage symptoms by setting goals & maintaining a routine. Exercise regularly, healthy eating habits and getting plenty of rest. We will continue to monitor without medication at this time. Nov,Hospital discharge follow-up (ICD-10 - Z09)Medical records requested Nov,Interstitial lung disease (ICD-10 - J84.9)Pt did have a Chest CT November 26 2022 ordered by Staci Asencio, no evidence of Pneumonia. Nov,Frequent urinary tract infections (ICD-10 - N39.0)Pt educated on risk VS benefit of taking an ATB chronically, will consider. Nov,Nausea (ICD-10 - R11.0)Rx refilled Outline Other 03-20-2023 History general Narrative - Reported* Type Description Date Medical History Esophageal reflux Medical Historysleep apnea with cpapMedical HistoryLBPMedical Historyallergic rhinitisMedical Historyhypoglycemia in the morningMedical HistoryHypoglycaemia NOSMedical HistoryLUMBAR SPONDYLOSIS/RADICULOPATHYMedical HistoryHTNMedical HistoryARTHRITISMedical HistoryHLDMedical Historylactose intoleranceMedical HistoryCovid 03/2022 [place] Historybladder surgerySurgical Historypartial hysterectomySurgical Historyarthroscopic knee surgerySurgical Zdiaxbfxnxvjwfm92/2010Surgical Qzhkhegsnkp37/2009Surgical Historyback Surgery Surgical HistoryBilateral cataract surgerySurgical HistoryLaser Eye [id number] HistoryLumbar decompressive [id number] History jpkdycbwfztxiun0367Ehhqlmdz HistoryAblation- Gidz9400Jdkziftd Historyback lhtojgmdc19/2021Hospitalization HistoryhysterectomyHospitalization History bladder surgeryHospitalization HistorySEE ABOVEHospitalization History [facility] [place]-[id number] [id number] HistoryTBH then Outline Other 03-06-2023 History general Narrative - Reported* Type Description Date Medical History Esophageal reflux Medical Historysleep apnea with cpapMedical HistoryLBPMedical Historyallergic rhinitisMedical Historyhypoglycemia in the morningMedical HistoryHypoglycaemia NOSMedical HistoryLUMBAR SPONDYLOSIS/RADICULOPATHYMedical HistoryHTNMedical HistoryARTHRITISMedical HistoryHLDMedical Historylactose intoleranceMedical HistoryCovid 03/2022 [place]urgical Historybladder surgerySurgical Historypartial hysterectomySurgical Historyarthroscopic knee surgerySurgical Ujfiknmfeeqbmwd01/2010Surgical Tbygfrxlxxf26/2010Surgical Historyback Surgery Surgical HistoryBilateral cataract surgerySurgical HistoryLaser Eye [id number] HistoryLumbar decompressive zpiheyq6248Kydlflrj History nznypmvsbrvybtc8317Mkneixsn HistoryAblation- Ntws9717Ejeivriv Historyback lgltyjljh35/2021Hospitalization HistoryhysterectomyHospitalization History bladder surgeryHospitalization HistorySEE ABOVEHospitalization History [facility] [place]-[id number] GnwtbspWMS2633Wrkychtwngazozb HistoryTB then Outline Other 01-16-2023 Evaluation note* Encounter Date Diagnosis [...] will continue to monitor every 3 months. Sep,ERD (gastroesophageal reflux disease) (ICD-10 - K21.9)Patients reflux symptoms remain unchanged at this time. We Discussed the importance of meal contentand timing. Reviewed the importance to avoid overeating and eating late in evening. Sep,RLS (restless legs syndrome) (ICD-10 - G25.81)Stable with medications Sep,nxiety (ICD-10 - F41.9)Stable at this time. Sep,Interstitial lung disease (ICD-10 - J84.9)Patient is followed by [facility]. Sep,HTN (hypertension) (ICD-10 - I10)Patients blood pressure is well controlled at this time. Denies cardiac symptoms at todays visit. We will continue to monitor. Continue above medications. Outline Other 12-22-2022 Evaluation note* Encounter Date Diagnosis Assessment Notes Treatment Notes Treatment Clinical Notes Aug, Tremor (ICD-10 - R25.1) I do not believe that the tremor is related to Parkinson's. I believe that this is related to post infection. She recently saw Pulmonology and wasnt related to recent steroids. We will check her urine for evaluation. Aug,Essential hypertension (ICD-10 - I10) Patient continues to do well with management of hypertension.Reviewed importance of nonpharmacologic treatment measures including excercise, diet, weight control. Currently meets AHA criteria for controlled hypertension. Criteria for medication adjustments reviewed. Taking all meds as directed reinforced. Aug,Gastroesophageal reflux disease, unspecified whether esophagitis present (ICD-10 - K21.9) GERD remains stable. Importance of meal timing and content reviewed. Avoid over eating and late meals. Pay attention to changes in appetite, weight, and bowel functions. Aug,Lumbar degenerative disc disease (ICD-10 - M51.36)Chronic but stable low back pain. Has been seen and evaluated and treated extensively by pain management. At the present time, symptoms are fairly well controlled. Aug,LS (restless legs syndrome) (ICD-10 - G25.81)Chronic symptoms of mild restless leg syndrome. I do not think this is responsible for any of the osborn nd shaking that she has been experiencing. 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 Aug,Type 2 diabetes mellitus 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, unspecified whether predatory animal exterminator insulin use (ICD-10 - E11.9)Stable. Last A1c 5.4%. Not clinically an issue at the present time. Aug,UTI (lower urinary tract infection) (ICD-10 - N39.0)Clinical symptoms and positive urinalysis for infection. This will be appropriately treated with Cipro 500 twice daily for 5 days. Aug,ronchiectasis 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 (ICD-10 - J47.9)No diagnosis made and followed by pulmonary medicine. Recently saw [facility]. Her consult notes were reviewed. Aug,Interstitial lung disease (ICD-10 - J84.9)PulmonologyIs entertaining an associated diagnosis of mild interstitial lung disease. They are following this with appropriate scans. Outline Other 12-15-2022 Evaluation note* Encounter Date Diagnosis Assessment Notes Treatment Notes Treatment Clinical Notes Aug, Cough (ICD-10 - R05.9) Aug,Interstitial lung disease (ICD-10 - J84.9) Aug,neumonitis (ICD-10 - J18.9) Aug,ronchiectasis 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 (ICD-10 - J47.9) Outline Other 11-15-2022 Evaluation note* Encounter Date Diagnosis Assessment Notes Treatment Notes Treatment Clinical Notes Jul, GERD (gastroesophageal reflux di sease) (ICD-10 - K21.9) Jul,LS (restless legs syndrome) (ICD-10 - G25.81) Outline Other 11-13-2022 History general Narrative - Reported* Type Description Date Medical History Esophageal reflux Medical Historysleep apnea with cpapMedical HistoryLBPMedical Historyallergic rhinitisMedical Historyhypoglycemia in the morningMedical HistoryHypoglycaemia NOSMedical HistoryLUMBAR SPONDYLOSIS/RADICULOPATHYMedical HistoryHTNMedical HistoryARTHRITISMedical HistoryHLDMedical Historylactose intoleranceMedical HistoryCovid 03/2022 [place] Historybladder surgerySurgical Historypartial hysterectomySurgical Historyarthroscopic knee surgerySurgical Dwkmlvozdntmcss76/2010Surgical Hirofohtqqp68/2010Surgical Historyback Surgery Surgical HistoryBilateral cataract surgerySurgical HistoryLaser Eye dlbgchn1543Jhyeotdu HistoryLumbar decompressive otfblcs1116Yynlgasf History hjqkgshcbefrfvt5929Wwglvvra HistoryAblation- Uqmr4127Yyeozayd Historyback tgxjdjsco99/2021Hospitalization HistoryhysterectomyHospitalization History bladder surgeryHospitalization HistorySEE ABOVEHospitalization History [facility] [place]-[id number] [id number] HistoryTB then Outline Other 11-04-2022 History general Narrative - Reported* Type Description Date Medical History Esophageal reflux Medical Historysleep apnea with cpapMedical HistoryLBPMedical Historyallergic rhinitisMedical Historyhypoglycemia in the morningMedical HistoryHypoglycaemia NOSMedical HistoryLUMBAR SPONDYLOSIS/RADICULOPATHYMedical HistoryHTNMedical HistoryARTHRITISMedical HistoryHLDMedical Historylactose intoleranceMedical HistoryCovid 03/2022 [place] Historybladder surgerySurgical Historypartial hysterectomySurgical Historyarthroscopic knee surgerySurgical Typkwlxavjmpqix88/2010Surgical Kmbtxjjqxex99/2010Surgical Historyback Surgery Surgical HistoryBilateral cataract surgerySurgical HistoryLaser Eye oswvzxc9116Yeplkgsi HistoryLumbar decompressive zrrdeyg7406Kwcatiiw History wspqikjyeqgquce0263Ocggrcgy HistoryAblation- Fwof0666Vdzgbpiq Historyback kauybetgc57/2021Hospitalization HistoryhysterectomyHospitalization History bladder surgeryHospitalization HistorySEE ABOVEHospitalization History [facility] [place]-[id number] [id number] HistoryTBH then Outline Other 11-03-2022 Evaluation note* Encounter Date Diagnosis Assessment Notes Treatment Notes Treatment Clinical Notes Jul, HTN (hypertension) (ICD-10 - I10 ) Patients blood pressure is well controlled at this time. Denies cardiac symptoms at todays visit. We will continue to monitor. Continue above medications. Jul,2Diabetes (ICD-10 - E11.9)Patient to continue to watch diet and increase [...] to continue with above medication as directed. Jul,GERD (gastroesophageal reflux disease) (ICD-10 - K21.9)Patients reflux symptoms remain unchanged at this time. We Discussed the importance of meal contentand timing. Reviewed the importance to avoid overeating and eating late in evening. Take medicationas directed and we will continue to monitor. Jul,hronic pain (ICD-10 - G89.29) Jul,Interstitial lung disease (ICD-10 - J84.9)She is attending [facility] and has f/u in August. Jul,nxiety (ICD-10 - F41.9)She is advised that she is going through alot right now, and its understable why she is shaky. Jul,Need for influenza vaccination (ICD-10 - Z23) Outline Other 11-02-2022 Evaluation note* Encounter Date Diagnosis Assessment Notes Treatment Notes Treatment Clinical Notes Jul, Cough (ICD-10 - R05.9) Jul,Interstitial lung disease (ICD-10 - J84.9) Outline Other 11-02-2022 History general Narrative - Reported* Type Description Date Medical History Esophageal reflux Medical Historysleep apnea with cpapMedical HistoryLBPMedical Historyallergic rhinitisMedical Historyhypoglycemia in the morningMedical HistoryHypoglycaemia NOSMedical HistoryLUMBAR SPONDYLOSIS/RADICULOPATHYMedical HistoryHTNMedical HistoryARTHRITISMedical HistoryHLDMedical Historylactose intoleranceMedical HistoryCovid 03/2022 [place] Historybladder surgerySurgical Historypartial hysterectomySurgical Historyarthroscopic knee surgerySurgical Sttjtocktfxulff67/2010Surgical Fugohzgynhq73/2010Surgical Historyback Surgery Surgical HistoryBilateral cataract surgerySurgical HistoryLaser Eye ubtrtzm7749Bbgqoqdt HistoryLumbar decompressive kocmxil8990Rzxuxyia History uzcgutayeqledeq7236Vxwdgsuk HistoryAblation- Eqot2743Gjxqohvq Historyback rwjvnxuvm79/2021Hospitalization HistoryhysterectomyHospitalization History bladder surgeryHospitalization HistorySEE ABOVEHospitalization History [facility] [place]-[id number] [id number] HistoryTBH then Outline Other 10-13-2022 Evaluation note* Encounter Date Diagnosis Assessment Notes Treatment Notes Treatment Clinical Notes Jun, Cough (ICD-10 - R05.9) Outline Other 10-05-2022 History general Narrative - Reported* Type Description Date Medical History Esophageal reflux Medical Historysleep apnea with cpapMedical HistoryLBPMedical Historyallergic rhinitisMedical Historyhypoglycemia in the morningMedical HistoryHypoglycaemia NOSMedical HistoryLUMBAR SPONDYLOSIS/RADICULOPATHYMedical HistoryHTNMedical HistoryARTHRITISMedical HistoryHLDMedical Historylactose intoleranceSurgical Historybladder surgerySurgical Historypartial hysterectomySurgical History arthroscopic knee surgerySurgical Mqaoxgmtoksafju86/2010Surgical Historydexa 08/2010Surgical Historyback Jyenyhx61-9667Xxvzgsat HistoryBilateral cataract surgerySurgical HistoryLaser Eye xmptqkx1913Lxlwbnng HistoryLumbar decompressive dxptmiw3904Dqmdhdaz Tasytsthhtmlafjbcdesiz4748Dqbqjobo HistoryAblation- 2018Surgical Historyback Hospitalization Historyhysterectomy Hospitalization Historybladder surgeryHospitalization HistorySEE ABOVE Hospitalization HistoryFR-cshroxzunnksnsf8254Xwjbuvipgvkwhbu CvvrmcwDGS2958 Outline Other 09-26-2022 Evaluation note* Encounter Date Diagnosis Assessment Notes Treatment Notes Treatment Clinical Notes May, Enlarged thyroid (ICD-10 - E04.9 ) Outline Other 09-22-2022 Evaluation note* Encounter Date Diagnosis Assessment Notes Treatment Notes Treatment Clinical Notes May, Essential hypertension (ICD-10 - I10) Patient continues to do well with management of hypertension.Reviewed importance of nonpharmacologic treatment measures including excercise, diet, weight control. Currently meets AHA criteria for controlled hypertension. Criteria for medication adjustments reviewed. Taking all meds as directed reinforced. May,Type 2 diabetes mellitus 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, unspecified whether predatory animal exterminator insulin use (ICD-10 - E11.9) Type 2 DM remains reasonably well controlled. Sugar logs reviewed. Medications verified. No patterns of poor control. We reviewed the importance of medication compliance, meal timing as well as content and the need for a bedtime snack. We talked about current medication specifically. We reviewed comorbidities associated with type 2 DM including HTN, CAD, dyslipidemia. May,ough (ICD-10 - R05.9)Chest Xray 05/26/2022 shows interstitial changes. there is some irritation particularly on the left side more than the RT. It is believed a lot of the coughing is D/T upper airway. Clinical impressions discussed, all questions answered. CT chest non con will be ordered. Referral sent to Pulmonology May,Edema extremities (ICD-10 - R60.0)Labs WNL, renal function stable. Weight is unchanged. Edema is likely a consequence of other thingsgoing on in her lungs.Further evaluation is required, Echocardiogram will be ordered to R/O cardiacconcerns. Pt advised she not need need to wear her compression stocking Elevate legs when lying supine, May,ardiomegaly (ICD-10 - I51.7) May,Interstitial lung disease (ICD-10 - J84.9) Outline Other 09-15-2022 Evaluation note* Encounter Date Diagnosis Assessment Notes Treatment Notes Treatment Clinical Notes May, Cough (ICD-10 - R05.9) Outline Other 09-08-2022 Evaluation note* Encounter Date Diagnosis Assessment Notes Treatment Notes Treatment Clinical Notes May, SOB (shortness of breath) (ICD-1 0 - R06.02) Outline Other 08-22-2022 Evaluation note* Encounter Date Diagnosis Assessment Notes Treatment Notes Treatment Clinical Notes Apr, Essential hypertension (ICD-10 - I10) Outline Other 04-25-2022 Evaluation note* Encounter Date Diagnosis Assessment Notes Treatment Notes Treatment Clinical Notes Dec, HTN (hypertension) (ICD-10 - I10 ) Patients blood pressure is well controlled at this time. Denies cardiac symptoms at todays visit. We will continue to monitor. Continue above medications. Dec,Hospital discharge follow-up (ICD-10 - Z09)All data from her brief hospitalization in [place] were reviewed.Final diagnosis was dehydration with syncope. [...] syncope secondary to being on the toilet. Dec,Grief (ICD-10 - F43.20)She is to continue to talk about her emotions, she was advised of the emotions that she may experience. Dec,UTI (urinary tract infection) (ICD-10 - N39.0)She is to continue to stay hydrated throughout the day. Dec,Tremor observed on examination (ICD-10 - R25.1)Intensional tremor left greater than right, medications prescribed have SE's. No signs of Parkinsons. Outline Other 04-04-2022 Evaluation note* Encounter Date Diagnosis Assessment Notes Treatment Notes Treatment Clinical Notes Dec, GERD (gastroesophageal reflux di sease) (ICD-10 - K21.9) Outline Other 2022 Evaluation note* Encounter Date Diagnosis Assessment Notes Treatment Notes Treatment Clinical Notes Nov, HTN (hypertension) (ICD-10 - I10 ) Patients blood pressure is well controlled at this time. Denies cardiac symptoms at todays visit. We will continue to monitor. Continue above medications. Nov,2Diabetes (ICD-10 - E11.9) I would like to cut back on Metformin, skip morning dose of Metformin and take it in the evening. She is to have a snack before bedtime. Her A1C 5.3% is well controlled. I'm hoping she won't have thehypoglycemia episodes and will fix the fatigue that she is having and this should help with her sleeping at night. Nov,GERD (gastroesophageal reflux disease) (ICD-10 - K21.9) Patients reflux symptoms remain unchanged at this time. We Discussed the importance of meal contentand timing. Reviewed the importance to avoid overeating and eating late in evening. Take medicationas directed and we will continue to monitor. Nov,Hypoglycemia (ICD-10 - E16.2) I would like to cut Metformin from bid to once a day in the evening. Nov,veractive bladder (ICD-10 - N32.81) Managed with medication Nov,ough (ICD-10 - R05.9) Cough could be realted to GERD, She is to eat earlier before going to bed. Outline Other 01-31-2022 Evaluation note* Encounter Date Diagnosis Assessment Notes Treatment Notes Treatment Clinical Notes Sep, Type 2 diabetes estuardo itus 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, unspecified whether correction insulin use (ICD-10 - E11.9) Outline Other 12-13-2021 Evaluation note* Encounter Date Diagnosis Assessment Notes Treatment Notes Treatment Clinical Notes Aug, Essential hypertension (ICD-10 - I10) Patient continues to do well with management of hypertension.Reviewed importance of nonpharmacologic treatment measures including excercise, diet, weight control. Currently meets AHA criteria for controlled hypertension. Criteria for medication adjustments reviewed. Taking all meds as directed reinforced. Aug,Gastroesophageal reflux disease, unspecified whether esophagitis present (ICD-10 - K21.9) GERD remains stable. Importance of meal timing and content reviewed. Avoid over eating and late meals. Pay attention to changes in appetite, weight, and bowel functions. Aug,Type 2 diabetes mellitus 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, unspecified whether correction insulin use (ICD-10 - E11.9) Type 2 [...] CAD, dyslipidemia. Advised to become more active Aug,Overweight (ICD-10 - E66.3) Encouraged to continue watching their diet and increase exercise regimen. Outline Other 11-18-2021 Evaluation note* Encounter Date Diagnosis Assessment Notes Treatment Notes Treatment Clinical Notes Jul, Essential hypertension (ICD-10 - I10) Patient continues to do well with management of hypertension.Reviewed importance of nonpharmacologic treatment measures including excercise, diet, weight control. Currently meets AHA criteria for controlled hypertension. Criteria for medication adjustments reviewed. Taking all meds as directed reinforced. Jul,ough (ICD-10 - R05.9) Lungs are clear on exam, she may have influenza vaccine today. the cough will continue to linger from recent Pneumonia DX. Jul,iabetes (ICD-10 - E11.9) Healthy diet and exercise encouraged. Weight loss helps to reduce blood sugars and A1C. Wear supportive shoes, avoid open toed shoes. Check feet daily. Rx refilled today Jul,GERD (gastroesophageal reflux disease) (ICD-10 - K21.9) Reflux symptoms remain unchanged. Discussed the importance of meal content. They should avoid overeating and eating meals late in the evening. Take medication as directed and we will continue to monitor. Jul,Need for influenza vaccination (ICD-10 - Z23) Flu vacciine given today, patient may have Covid booster following her next OV Jul,nkle edema (ICD-10 - M25.473) well controlled, no change in Rx Jul,Nausea (ICD-10 - R11.0) Take medication as directed. No change in Lasix at this time. Patient verbalized understanding and agreement with treatment plan. Outline Other 10-22-2021 Evaluation note* Encounter Date Diagnosis Assessment Notes Treatment Notes Treatment Clinical Notes Jun, Contact with and (leahy spected) exposure to other viral communicable diseases (ICD-10 - Z20.828) Go to the ER for further evaluation of her fever, fatigue, headache. Patient and daughter are instructed to go to the ER today for further evaluation of her symptoms. Patient daughter verbalize understanding and agreement with this plan Jun,Fever, unspecified fever cause (ICD-10 - R50.9) Jun,Other Additional time spent conducting pre-visit phone call, screening for symptoms, instructions on social distancing, application and removal of PPE, and cleaning of examination room, equipment and supplies was preformed. Patient education given for testing methodology and results. Patient care instructions given in writting by [facility]NOTE 3] Care At Home document. Outline Other 09-09-2021 Evaluation note* Encounter Date Diagnosis Assessment Notes Treatment Notes Treatment Clinical Notes May, Type 2 diabetes estuardo itus 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, unspecified whether correction insulin use (ICD-10 - E11.9) Type 2 [...] She may drink Glucerna between meals May, ssential hypertension (ICD-10 - I10) Patient continues to do well with management of hypertension.Reviewed importance of nonpharmacologic treatment measures including excercise, diet, weight control. Currently meets AHA criteria for controlled hypertension. Criteria for medication adjustments reviewed. Taking all meds as directed reinforced. May,Gastroesophageal reflux disease, unspecified whether esophagitis present (ICD-10 - K21.9) GERD remains stable. Importance of meal timing and content reviewed. Avoid over eating and late meals. Pay attention to changes in appetite, weight, and bowel functions. May,nxious mood (ICD-10 - F41.9) Remains stable and well balanced with current management. Takes meds as recommended. No medication side effects. Talked about need for diet and exercise as well as engaging in personal tasks and hobbies that are enjoyable. The concept of mindfullness was discussed as well as ways to promote personal growth. May,dema of extremities (ICD-10 - R60.0) Pt advised if she doesn't find relief of edema with Lasix being reduced to 20 mg QOD, she may stop the medication. May,Nausea (ICD-10 - R11.0) May,uspected UTI (ICD-10 - R39.89) [facility] [email or web address] Other Evaluation noteNo InformationNortCanonsburg Hospital [email or web address] Other Evaluation noteNort [employer] Other Evaluation noteNo assessment information available [facility] Work Phone: Evaluation note* Diagnosis Onset Date Resolution Status Balance disorder acuteDiabetes mellitus with hyperglycemia, without long-term current use of insulinacuteNauseaacuteRLS (restless legs syndrome)acuteSystolic ejection murmur acuteLumbar degenerative disc diseaseacute [facility] Work Phone: Evaluation note* Diagnosis Onset Date Resolution Status Lumbar degenerative disc disease acuteBronchiectasisacuteChronic coughacuteInterstitial lung diseaseacute PneumonitisacuteUpper airway cough syndromeacuteDiabetes mellitus with hyperglycemia, without long-term current use of insulinacuteRLS (restless legs syndrome)acute [facility] Work Phone: Evaluation note* Diagnosis Onychomycosis- Primary Dermatophytosis of nail Pain in both feet 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, without long-term current use of insulin ([facility]) Lymphedema Other noninfectious lymphedema Venous insufficiency Unspecified venous (peripheral) insufficiency documented in this encounter [facility]* Diagnosis Onychomycosis- Primary Dermatophytosis of nail Pain in both feet 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, without long-term current use of insulin ([facility]) Lymphedema Other noninfectious lymphedema documented in this encounter [facility]Evaluation [facility]* Diagnosis Onset Date Resolution Status Admit Date Bronchiectasis acuteMarch 2024 1:03pmCHF (congestive heart failure)acuteMarch 2024 1:03pmHTN (hypertension)acuteMarch 2024 1:03pmInterstitial lung disease acuteMarch 2024 1:03pmMedicare annual wellness visit, subsequentacuteMarch 2024 1:03pmMorbid obesityacuteMar 2024 1:03pm [facility] Work Phone: Evaluation note* Diagnosis Onychomycosis- Primary Dermatophytosis of nail Pain in both feet 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, without long-term current use of insulin Lymphedema Other noninfectious lymphedema documented in this encounter [facility] HealthcareEvaluation note* Diagnosis Seborrheic keratosis- Primary Neoplasm of unspecified behavior of bone, soft tissue, and skin Seborrheic keratosis, inflamed documented in this encounter [facility] HealthcareEvaluation note* Diagnosis Onychomycosis- Primary Dermatophytosis of nail Pain in both feet 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, without long-term current use of insulin ([facility]) Lymphedema Other noninfectious lymphedema Hammer toes of both feet documented in this encounter [facility] HealthcareEvaluation note* Diagnosis Diabetic polyneuropathy associated with type 2 diabetes mellitus (HCC)- Primary 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, without long-term current use of insulin ([facility]) Lymphedema Other noninfectious lymphedema Hammer toes of both feet Equinus contracture of left ankle Equinus contracture of right ankle documented in this encounter [facility] HealthcareEvaluation note* Diagnosis Hammer toes of both feet- Primary Equinus contracture of left ankle Equinus contracture of right ankle Lymphedema Other noninfectious lymphedema Diabetic polyneuropathy associated with type 2 diabetes mellitus (HCC) documented in this encounter [facility] HealthcareEvaluation note* Diagnosis Onset Date Resolution Status Admit Date HTN (hypertension) acuteSeptember 2024 2:11pm [facility] Work Phone: History general Narrative - Reported* Type Description Date Medical History Esophageal reflux Medical Historysleep apnea with cpapMedical HistoryLBPMedical Historyallergic rhinitisMedical Historyhypoglycemia in the morningMedical HistoryHypoglycaemia NOSMedical HistoryLUMBAR SPONDYLOSIS/RADICULOPATHYMedical HistoryHTNMedical HistoryARTHRITISMedical HistoryHLDMedical Historylactose intoleranceSurgical Historybladder surgerySurgical Historypartial hysterectomySurgical History arthroscopic knee surgerySurgical Xanpzyzztbpdyef79/2010Surgical Historydexa 08/2010Surgical Historyback Xtseuot12-5241Wilypsij HistoryBilateral cataract surgerySurgical HistoryLaser Eye qggxhcv2467Fuygigpx HistoryLumbar decompressive pvezhry9875Iixjulcb Tdfbsguilvpvmlfjtlrpox6488Cwbwjnmv HistoryAblation- 2017Surgical Historyback qohzcvtgn83/2021Hospitalization Historyhysterectomy Hospitalization Historybladder surgeryHospitalization History[facility] Hospitalization HistoryFR-[id number] [facility] [email or web address] Other History general Narrative - ReportedNort [employer] Other History general Narrative - Reported* Type Description Date Medical History Esophageal reflux Medical Historysleep apnea with cpapMedical HistoryLBPMedical Historyallergic rhinitisMedical Historyhypoglycemia in the morningMedical HistoryHypoglycaemia NOSMedical HistoryLUMBAR SPONDYLOSIS/RADICULOPATHYMedical HistoryHTNMedical HistoryARTHRITISMedical HistoryHLDMedical Historylactose intoleranceSurgical Historybladder surgerySurgical Historypartial hysterectomySurgical History arthroscopic knee surgerySurgical Hhozulgkhflsivj21/2010Surgical Historydexa 08/2010Surgical Historyback Uygzcko67-7783Mkosqyga HistoryBilateral cataract surgerySurgical HistoryLaser Eye owtrtqy5125Hgypmntm HistoryLumbar decompressive upkrijj8691Dcdfochd Jvmvzaairkfybjmaqdeknh1550Ivbeitsz HistoryAblation- 2017Surgical Historyback hustoxmuj62/2021Hospitalization Historyhysterectomy Hospitalization Historybladder surgeryHospitalization History[facility] Hospitalization HistoryFR-ecwuusoomfvclzu9067Mcpxsemeqcfdqpd OdbdrtzGYC3478 Outline Other History general Narrative - Reported* Type Description Date Medical History Esophageal reflux Medical Historysleep apnea with cpapMedical HistoryLBPMedical Historyallergic rhinitisMedical Historyhypoglycemia in the morningMedical HistoryHypoglycaemia NOSMedical HistoryLUMBAR SPONDYLOSIS/RADICULOPATHYMedical HistoryHTNMedical HistoryARTHRITISMedical HistoryHLDMedical Historylactose intoleranceMedical HistoryCovid 03/20[place] History[place]adder surgerySurgical Historypartial hysterectomySurgical Historyarthroscopic knee surgerySurgical Ydauqmoposjbkki74/2010Surgical Bqlaorjgfql60/2010Surgical Historyback Surgery Surgical HistoryBilateral cataract surgerySurgical HistoryLaser Eye gehcorx6451Mgjaueat HistoryLumbar decompressive ovtqzpz4196Nolqdvts History edoumzixwkarpux4367Idphkxrl HistoryAblation- Ycxk3488Zlmxccav Historyback /2021Hospitalization HistoryhysterectomyHospitalization History bladder surgeryHospitalization History[facility]Hospitalization History [facility]-wqdxuawvldlphns4621Xofkdzowwivozdz RyzkfylIYG5396Iadwzofuhdhzocn HistoryTBH then Outline Other History general Narrative - Reported* Type Description Date Medical History Esophageal reflux Medical Historysleep apnea with cpapMedical HistoryLBPMedical Historyallergic rhinitisMedical Historyhypoglycemia in the morningMedical HistoryHypoglycaemia NOSMedical HistoryLUMBAR SPONDYLOSIS/RADICULOPATHYMedical HistoryHTNMedical HistoryARTHRITISMedical HistoryHLDMedical Historylactose intoleranceMedical HistoryCovid 03/2022 [place] Historybladder surgerySurgical Historypartial hysterectomySurgical Historyarthroscopic knee surgerySurgical Ktvlzhlsaaazinx03/2010Surgical Tlzgbmhaczk89/2009Surgical Historyback Surgery -2012Surgical HistoryBilateral cataract surgerySurgical HistoryLaser Eye iqrxaby0778Geqaqlrn HistoryLumbar decompressive fzsjogk2200Kttsfkou History zhjjorgvsaepbvn4187Yazvxrwz HistoryAblation- Jtjw9177Eqowuuzw Historyback edghdecqh51/2021Hospitalization HistoryhysterectomyHospitalization History bladder surgeryHospitalization History[facility]OVEHospitalization History [facility]-hpnqcjfkvezmzbl5076Sgrelzxzdmxkcrg LylqsckAUZ9524Uxjoveqqcbpmdjz HistoryTBH then WillHospitalization HistoryTBH then [facility] Outline Other History general Narrative - ReportedNoresearch psychiatric center [employer] Other History general Narrative - ReportedNoOneFineMeal Other History general Narrative - Reported* Type Description Date Medical History Esophageal reflux Medical Historysleep apnea with cpapMedical HistoryLBPMedical Historyallergic rhinitisMedical Historyhypoglycemia in the morningMedical HistoryHypoglycaemia NOSMedical HistoryLUMBAR SPONDYLOSIS/RADICULOPATHYMedical HistoryHTNMedical HistoryARTHRITISMedical HistoryHLDMedical Historylactose intoleranceMedical HistoryCovid 03/2022 [place] Historyinterstitial lung disease Medical HistorybronchiectesisSurgical Historybladder surgerySurgical History partial hysterectomySurgical Historyarthroscopic knee surgerySurgical History ylkimfuy23/2010Surgical Oxscvvvfyei67/2010Surgical Historyback Cwjvwbr64-6573 Surgical HistoryBilateral cataract surgerySurgical HistoryLaser Eye dlijtin1651 Surgical HistoryLumbar decompressive peoqjwn4748Ghbdpxgh Historycholecystectomy 2018Surgical HistoryAblation- Frps1657Amathpsv Historyback qvijqbkws98/2021 Hospitalization HistoryhysterectomyHospitalization Historybladder surgery Hospitalization History[facility]ospital[facility] History[facility] [place]-medfqwktmepwokd9715 Hospitalization ScuxofgNDN0253Oumotojowxibokt HistoryTB[facility] [place] Hospitalization HistoryTB[facility] then [place] Outline Other Hospital Discharge instructionsAmbulatory Orders* Referral to Pain Management Time Frame: 01/01/24, Location: None Selected [facility] Work Phone: Reason for referral (narrative)No reason for referral information availableMadison Health Work Phone: Reason for visit NarrativeClinical referral/lock note Outline Other Chief Complaint and Reason for Visit Chief Complaint I10 E11.9 R05.9 R60. 0 Chief Complaint I10 E11.9 R05.9 R60. 0 r06.02 Chief Complaint I10 E11.9 R05.9 R60. 0 r06.02 R05.9 R60.0 I51.7 Chief Complaint J84.9 Chief Complaint R39.89 j84.9 Chief Complaint Amb Documentation 4 Month Check Up Chief Complaint Amb Documentation 4 Month Check Up [facility], difficulty walkingReason for VisitBalance disorder Diabetes mellitus with hyperglycemia, without long-term current use of insulin Nausea RLS (restless legs syndrome) Systolic ejection murmur Lumbar degenerative disc disease Chief Complaint TBH, difficulty walk ing H mo f/u ILD, Pneumonitis, Bronchiectasis 3 Month Check UpReason for VisitLumbar degenerative disc disease Bronchiectasis Chronic cough Interstitial [...] Morbid obesity December 07, 2024 1:0 3pm Chief Complaint Admit Date 3 month f/u June 08, 2025 2:11pm Reason for Visit Admit Date HTN (hypertension) June 08, 2025 2:11pm Advance Directives No Advanced Directives Records Found Advance Directive Response Recorded Date/ Time Advance Directives Yes March 06 11:08am Reason for Referral Reason * F/U 06/18 1st gino ilable physician consult treat cough Diagnosis 1 Cough (R05.9) Referral Organization [facility] Referring Provider First Name Brendon Referring Provider Last Name Castelan Referring Provider Specialty Internal Me dicine Referred Organization [facility] Referred Address [address] [place] [address],[facility] [address],[place], [place],[address] Referred Provider Specialty Pulmonary Di seases Referral Priority Urgent General Notes Jocelin Peck 05/18 01:33:21 PM >Referral sent P2P Jocelin Peck 06/20/2022 03:17:10 PM > please have Dr. Castelan lock note from 06/07 Summary Purpose Family History No Family History Records Found Relationship Condition Age at Onset Recorded Date/T chata brother Epilepsy Unknown fatherMalignant neoplasmUnknownDeceasedUnknownMalignant neoplasm of stomach UnknownNot SpecifiedFamily history of emphysemaUnknown Relationship Condition Age at Onset Recorded Date/T chata brother Epilepsy Unknown fatherMalignant neoplasmUnknownDeceasedUnknownMalignant neoplasm of stomach UnknownmotherFamily history of emphysemaUnknown Additional Source Comments REASON FOR VISIT (unrecogniz ed section and content) ReasonCommentsSuspicious Skin LesionReasonCommentsDiabetic shoe processSalma Quan 89yo New Patient presents with her daughter Temitope, with a referral from Dr. Codi Miranda to start the diabetic shoe process. Patient is seeing Dr. Miranda every 3 months for nail care, last visit 05/04/2025. Patient relates Lyphedema left leg. Patient states diabetes is diet controlled at this time. 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 SS: 7WReasonCommentsDiabetic Shoes Care Teams (unrecognized sec tion and content) [...] Status: Active Member Role Status Dates Brendon aCstelan MD Primary Care Provider Active Start: November 07, 2023 Liz Campos ProviderActiveStart: November 07, 2023 Team Status: Inactive Member Role Status Randall Castelan MD Primary Care Provider Active Start: December 02, 2023 End: December 02, 2023Estela Weaver ProviderActiveStart: December 02, 2023 End: December 02, 2023 Team Status: Inactive Member Role Status Randall Castelan MD Primary Care Provider, Attendin g Provider Active Team Status: Inactive Member Role Status Randall Castelan MD Primary Care Provider Active GREG Porter-CHRISttending ProviderActive Team Status: Active Member Role Status Randall Castelan MD Primary Care Provider Active Start: December 25, 2023 Estela Weaver ProviderActiveStart: December 25, 2023 Team Status: Inactive Member Role Status Randall Chase MD Primary Care Provide r, Attending Provider Active Start: January 01, 2024 End: January 01, 2024 Team Status: Inactive Member Role Status GREG Francisco-BC Attending Provider Active Start: January 28, 2024 End: January 28, 2024Елена Weaver Care ProviderActiveStart: January 28, 2024 End: January 27MEActiveStart: January 28, 2024 End: January 28, 2024 Team Status: Inactive Member Role Status Dates Fatoumata Chase MD Primary Care Provide r, Attending Provider Active Start: March 05, 2024 End: March 05, 2024Team MemberRelationshipSpecialtyStart DateEnd Date Fatoumata Chase MD [address] [place] [facility] [place] [phone] PCP - GeneralFamily Jkcilkqd74/4/23Team MemberRelationshipSpecialtyStart DateEnd Date Fatoumata Chase MD [address] [place] [facility] [place] [phone] PCP - Generalmily Pfmisaxc00/4/23Team MemberRelationshipSpecialtyStart DateEnd Date Fatoumata Chase MD [address] [place] [facility] [place] [phone] PCP - GeneralFamily Bnodhrwv56/4/23 Team Status: Inactive Member Role Status Dates Fatoumata Chase MD Primary Care Provide r, Attending Provider Active Start: December 07, 2024 End: December 07, 2024Team MemberRelationshipSpecialtyStart DateEnd Date Fatoumata Chase MD PCP - GeneralFamily Mgmtbkub53/4/23Team MemberRelationshipSpecialtyStart DateEnd Date Fatoumata Chase MD PCP - GeneralFamily Jymvpvha89/4/23Team MemberRelationshipSpecialtyStart DateEnd Date Fatoumata Chase MD [address] [place] [facility] [place] [phone] PCP - GeneralFamily Medicine01/18/25Team MemberRelationshipSpecialtyStart DateEnd Date Fatoumata Chase MD [address] [place] [facility] [place] [address] PCP - GeneralFamily Medicine01/18/25Team MemberRelationshipSpecialtyStart DateEnd Date Fatoumata Chase MD [address] [facility] [place] [address] PCP - GeneralFamily Medicine01/18/25Team MemberRelationshipSpecialtyStart DateEnd Date Fatoumata Chase MD [address] [facility] [place] [address] PCP - GeneralFamily Medicine01/18/25Team MemberRelationshipSpecialtyStart DateEnd Date Fatoumata Chase MD [address] [facility] [place] [address] PCP - GeneralFamily Medicine01/18/25Team MemberRelationshipSpecialtyStart DateEnd Date Fatoumata Chase MD [address] [facility] [place] [address] PCP - GeneralFamily Medicine01/18/25Team MemberRelationshipSpecialtyStart DateEnd Date Fatoumata Chase MD [address] [place] [facility] [place] [address] PCP - GeneralFamily Medicine01/18/25 Team Status: Inactive Member Role Status Dates Fatoumata Chase MD Primary Care Provider Active Start: June 08, 2025 End: June 08, 2025Fatoumata Chase MDAttformerly [facility] ProviderActiveStart: June 08, 2025 End: June 08, 2025 Goals (unrecognized section and content) Goals may be documented in a n alternate section INFORMATION SOURCE (unrecogn ized section and content) DATE CREATED AUTHOR 07/24/2022 [facility] DATE CREATED AUTHOR AUTHOR'S ORGANIZ ATION 01/30/2023 [facility] DATE CREATED AUTHOR AUTHOR'S ORGANIZ ATION 06/01/2023 [facility] DATE CREATED AUTHOR AUTHOR'S ORGANIZ ATION 07/14/2025 [facility] DATE CREATED AUTHOR AUTHOR'S ORGANIZ ATION 07/20/2025 [facility] FOR RECORDS PERTAINING TO PATIENTS WHO ARE [...] BE BASED ON THE PRIMARY CLINICAL RECORDS. [facility] [employer] [facility]. provides no warranty or guarantee of the accuracy or completeness of information in this document.
--- OUTSIDE RECORDS SUMMARY | 2025-07-25 04:51 | XMS_ITS | Clinical Summary ---
Author Organization [facility] Address [address] [place] [address] Care Team Providers Care Millwright Instructor Name Role Phone Fatoumata Chaes MD Primary Care Provider Allergies Active AllergyReactionsCriticalityNoted DateCommentsClarithromycinUnknown,Other 02/02/20252051XsdokrpeuppjoqltdmKpwlm96/23/0642JibfetltjeruDbbox97/23/2025 Ikxoqzw-Zkompbztc-VobqwfiicnxlSfzdc09/14/4053HgcuveiolsdiwXosguhh15/23/2025 CwsggbnwTalushq15/20/9409QbgvnidnxPpfghnw49/23/2025 Medications MedicationSigDispense QuantityRefillsLast FilledStart DateEnd DateStatus nitrofurantoin, macrocrystal-monohydrate, (Macrobid) 100 mg capsule Take 100 mg by mouth every 12 (twelve) hours.5Active rOPINIRole (Requip) 0.5 mg tablet Take 0.5 mg by mouth in the morning and at bedtime.Active potassium chloride CR (Klor-Con M20) 20 mEq ER tablet Take 1 tablet by mouth in the morning.5Active ondansetron (Zofran) 4 mg tablet Take 4 mg by mouth every 8 (eight) hours if needed for nausea or vomiting.Active spironolactone (Aldactone) 25 mg tablet Indications:Chronic heart failure with preserved ejection fraction (HFpEF) (CMS/HCC)Take 1 tablet (25 mg) by mouth in the morning. 30 tablet //254166/6Active chlorthalidone (Hygroton) 25 mg tablet Indications:Chronic heart failure with preserved ejection fraction (HFpEF) (CMS/HCC)Take 1 tablet (25 mg) by mouth in the morning. 30 tablet 501/ctive furosemide (Lasix) 40 mg tablet Take 60 mg by mouth if needed. For leg cowhpnww79Discontinued (Stop Taking at Discharge) Active Problems ProblemNoted DateDiagnosed KzcuXscvchev86/22/2025Acute ylshagoblrpdr39/21/2025 Balance mlxnqajv90/21/3754Smbneabbgpfjuu19/21/2025HF (congestive heart failure) 07/06/2025hronic cough07/06/2025Diabetes mellitus with hyperglycemia, without long-term current use of jpnmgnd7207/06/2025Encounter for afhkqbjdwfjm03/21/2025 HTN (hypertension)07/06/2025Lumbar degenerative disc rizmsbz9907/06/2025Lymphedema 07/06/2025Morbid nadumon3407/06/20256420Uumymz45/21/2025Obstructive sleep apnea 07/06/2025Interstitial lung xytndkx2807/06/2025Restless leg wrrasquk20/21/2025 Systolic ejection gubjeg45Upper airway cough /21/2025 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, without long-term current use of yqxrydk3003/05/2023Hammer toes of both feet03/05/2023Onychomycosis 03/05/2023ain in both feet03/05/2023 Encounters DateTypeDepartmentCare CpavCeifdkyjxpy05/24/2025 11:00 AM EDT - 07/09/2025 12:00 PM EDTSurgery [facility] Vascular Lab [address] [place] [address] Drake Diggs MD Right heart cath [86925 (CPT??)]07/09/2025 8:00 AM EDTLab [facility] Outpatient Draw Station [address] [place] [address] Abnormal EKG; Pre-op bukszdvtqw32/24/2025 7:56 AM EDT - 07/09/2025 11:55 AM EDTHospital Encounter [facility] Vascular Lab [address] [place] [address] Drake Diggs MD Chronic heart failure with preserved ejection fraction (HFpEF) (CMS/HCC) (Primary Dx); Anasarca Discharge Disposition: Home or Self Care (01)07/08/20251204Awrsqg71/22/2025 10:20 AM EDTOffice Visit [facility] [address] [place] [address] Drake Diggs MD Anasarca (Primary Dx); Morbid obesity (CMS/HCC); Atrial premature beats07/07/2025Orders Only [facility] [address] [place] [phone] Arlet Payne MA Abnormal EKG (Primary Dx); Pre-op wpiutqokxo31/09/2025Telephone [facility] [address] [place] [address] Kerri Major MA from Last 3 Months Family History Medical HistoryRelationNameCommentsCancerFatherEmphysemaMotherRelationNameStatus CommentsBrotherDeceasedFatherDeceasedMotherDeceased Social History Tobacco UseTypesPacks/DayYears UsedDateSmoking Tobacco: NeverSmokeless Tobacco: Never Tobacco Cessation:Counseling Given: Not Answered Alcohol UseStandard Drinks/WeekCommentsNot Currently0 (1 standard drink = 0.6 oz pure alcohol)[place] Safety & EnvironmentAnswerDate RecordedFear of Current or Ex-PartnerNot on file12/19/2023Emotionally AbusedNot on file12/19/2023hysically AbusedNot on file12/19/2023Sexually AbusedNot on file12/19/2023hysically or Sexually AbusedNot on file12/19/2023CommentsUnknownSex and Gender InformationValueDate RecordedSex Assigned at RdwkpVjyqbd76/17/2025 4:14 PM EDT Legal ZhbNjcjub66/04/2024 9:45 AM EDTGender CckqxqkiVxnchz38/17/2025 4:14 PM EDT Sexual OrientationHeterosexual or Huobmjfc52/17/2025 4:14 PM EDT Last Filed Vital Signs Vital SignReadingTime TakenCommentsBlood Ivswjnnn793/6707/09/2025 11:45 AM EDT Hqluq665907/09/2025 11:45 AM EDTTemperature--Respiratory Wksc3150 11:45 AM EDTOxygen Rgjyxmwljh82%07/09/2025 11:45 AM EDTInhaled Oxygen Concentration-- Bnnfqo09.9 kg (185 lb)07/09/2025 8:33 AM NMAVxvrnr967.9 cm (4' 11 )07/09/2025 8:33 AM EDTBody Mass Index37.371 8:33 AM EDT Plan of Treatment DateTypeDepartmentCare Team (Latest Contact Info)Qsgxxqsyyjd64/01/2025 9:00 AM ESTOffice Visit [facility] [address] [place] [address] Drake Diggs MD [address] [place] [address] Health MaintenanceDue DateLast DoneCommentsDiabetes: Hemoglobin A1C1937 Medicare Annual Wellness (AWV)1937Diabetes: Retinopathy Screening 1947Depression Sebdtibah28/02/1949Diabetes: Urine Protein Screening 1956dult Xwpwgve9703/17/1959Zoster Vaccines (1 of 2)1987Fall Risk Llufsngtj65/02/2002COVID-19 Vaccine ( season)512/, 11/22/2020, 1Pneumococcal Vaccine: 50+ AmdevPmkxnpqui85/10/2019, 01/29/2017, 10/17/2014Influenza CgfnaljYchbrfabf62/23/2025, 06/08/2024, 07/19/2022, Additional history existsHIB VaccinesAged OutNo longer eligible based on patient's age to complete this topicHPV VaccinesAged OutNo longer eligible based on patient's age to complete this topicIPV VaccinesAged OutNo longer eligible based on patient's age to complete this topicMeningococcal B VaccineAged OutNo longer eligible based on patient's age to complete this topic Meningococcal VaccineAged OutNo longer eligible based on patient's age to complete this topicRotavirus VaccinesAged OutNo longer eligible based on patient's age to complete this topic Procedures Procedure NamePriorityDate/TimeAssociated DiagnosisCommentsRIGHT HEART CATH Hxddsst1907/09/2025 11:11 AM EDT Anasarca %PLQ1Kxgbjma16/24/2025 11:10 AM EDT %MAD9Wjtyfnc53/24/2025 11:04 AM EDT %ZPM3Xruonju26/24/2025 11:03 AM EDT %OLD6Bvomgze48/24/2025 11:02 AM EDT %XNC7Aadpzbz64/24/2025 11:00 AM EDT %UNH4Gtaljlb59/24/2025 10:59 AM EDT CBC WITH AUTO ZRYBWARVDBZJLidoejm82/24/2025 8:02 AM EDT Abnormal EKG Pre-op evaluation B-TYPE NATRIURETIC YBIUWFCGkhuauf12/24/2025 8:02 AM EDT Abnormal EKG Pre-op evaluation COMPREHENSIVE METABOLIC VFMAQDfllzdu27/24/2025 8:02 AM EDT Abnormal EKG Pre-op evaluation CBC AND OYPSVOMWFUXZDexfyxh85/24/2025 8:02 AM EDT Abnormal EKG Pre-op evaluation from Last 3 Months Results * RIGHT HEART CATH (07/09/2025 11:11 AM EDT)Anatomical RegionLateralityModality OtherSpecimen (Source)Anatomical Location / LateralityCollection Method / VolumeCollection TimeReceived Time Narrative 07/09/2025 11:31 AM EDT PROCEDURE PHYSICIAN: Drake Diggs MD Clinical Presentation: 89 y.o. Female with history of anasarca Final Impression: 1) Biventricular heart failure with a right atrial and wedge pressure of 11 and 21 mmHg respectively 2) Pulmonary hypertension with a PA pressure of 64/22 mmHg. ??The PVR index is elevated at 5.9 Wood units/m2 and is likely in part due to left heart failure 3) No evidence of L to R intra-cardiac shunting by satuations Recommendation: 1) Discontinue lasix and start chlorthalidone 25 mg daily and spironolactone 25 mg daily Procedures Performed: right heart catheterization with saturation run, ultrasound guidance for vascular access Procedure Description: The patient was brought to the cardiac catheterization lab in a fasting state. ??Informed written consent was obtained. ??chata-out was performed. she was prepped and draped in usual sterile fashion and 1% lidocaine was infiltrated. ??Using ultrasound guidance and a micropuncture access technique a 6 Macanese sheath was placed in the right internal jugular vein. The catheter was advanced under fluoroscopic and hemodynamic monitoring to the right atrium. ??Pressure obtained of the right atrium, right ventricle, pulmonary artery, pulmonary capillary position. ??Oxygen saturation drawn for the pulmonary artery and Mike cardiac with a cardiac index were calculated. All catheters and wires were removed. ??The sheath was removed and pressure was applied to obtain hemostasis. Specimens Removed: None Complications: None Hemodynamic Data, baseline: ?? RA: 17/13/11 mmHg RV: 64/16 mmHg PA: 64/22/40 mmHg PCWP: 24/28/21 mmHg CO: 5.46 L/min CI: 3.21 L/min/m2 O2 Sat: SVC: 78% RA: 77% IVC: 82% RV: 76% PA sat: 76% AO sat: 97% Study Details Anasarca [R60.1] Authorizing ProviderResult TypeResult StatusChristopher Dontae [facility] CARDIAC CATH PROCEDURESFinal Result * (ABNORMAL) %HbO2 (07/09/2025 11:10 AM EDT) Only the most recent of6 resultswithin the time period is included. ComponentValueRef RangeTest MethodAnalysis TimePerformed AtPathologist Signature O2Hb%81.8(L)90.0 - 95.0 %07/09/2025 11:10 AM [facility] ([facility]) Specimen (Source)Anatomical Location / LateralityCollection Method / Volume Collection TimeReceived TimeBloodVenous blood specimen / Xklsqbt6807/09/2025 11:10 AM EDT1 11:10 AM EDT Narrative Authorizing ProviderResult TypeResult StatusChristopher Dontae JAQUEZ POINT OF CARE TEST DOCKED DEVICE UNSOLICITED RESULTSFinal ResultPerforming Organization AddressCity/State/ZIP CodePhone Number [facility] ([facility]) [address] [place] [address] * (ABNORMAL) CBC auto differential (07/09/2025 8:02 AM EDT)ComponentValueRef RangeTest MethodAnalysis TimePerformed AtPathologist SignatureAuto WBC6.074.00 - 10.60 10*3/uL07/09/2025 8:46 AM [facility] ([facility])RBC4.463.80 - 5.00 10*6/uL07/09/2025 8:46 AM [facility] ([facility])Ulticncany66.312.0 - 15.0 g/dL07/09/2025 8:46 AM [facility] ([facility])Dkmiezykjm10.336.0 - 45.0 %07/09/2025 8:46 AM [facility] ([facility])MCV97.182.0 - 98.0 fL 07/09/2025 8:46 AM [facility] ([facility])MCH32.127.0 - 33.0 pg 07/09/2025 8:46 AM [facility] ([facility])MCHC33.032.0 - 35.0 g/dL 07/09/2025 8:46 AM [facility] ([facility])RDW13.911.5 - 15.0 %07/09/2025 8:46 AM [facility] ([facility])Neutrophils %55.040.0 - 72.0 %07/09/2025 8:46 AM [facility] ([facility])Lymphocytes %26.720.0 - 45.0 %07/09/2025 8:[address] [facility] ([facility])Monocytes %11.55.0 - 12.0 %07/09/2025 8:[address] [facility] ([facility])Eosinophils %4.30.0 - 6.0 %07/09/2025 8:46 AM [facility] ([facility])Basophils %1.5(H)0.0 - 1.0 %07/09/2025 8:[address] [facility] ([facility])Neutrophils Absolute3.341.60 - 7.60 10*3/uL07/09/2025 8:[address] [facility] ([facility])Lymphocytes Absolute 1.621.20 - 4.00 10*3/uL07/09/2025 8:[address] [facility] ([facility]) Monocytes Absolute0.700.10 - 1.00 10*3/uL07/09/2025 8:[address] [facility] ([facility])Eosinophils Absolute0.260.00 - 0.50 10*3/uL07/09/2025 8:46 AM [facility] ([facility])Basophils Absolute0.090.00 - 0.20 10*3/uL07/09/2025 8:46 AM [facility])Uowsrpqfm373854 - 400 10*3/uL07/09/2025 8:[address] [facility] ([facility])nRBC %0.00 %07/09/2025 8:[address] [facility] ([facility])Immature Granulocytes %1.00.0 - 1.0 %07/09/2025 8:46 AM [facility])Immature Granulocytes Absolute0.060.00 - 0.20 10*3/uL07/09/2025 8:46 AM [facility])Specimen (Source) Anatomical Location / LateralityCollection Method / VolumeCollection Time Received TimeBloodVenous blood specimen / UnknownVenipuncture / Unknown 07/09/2025 8:02 AM EDT1 8:33 AM EDT Narrative Authorizing ProviderResult TypeResult StatusChriscatalina JAQUEZ BLOOD ORDERABLESFinal ResultPerforming OrganizationAddressCity/State/ZIP CodePhone Number [facility] ([facility]) [address] [place] [address] * B-type natriuretic peptide (07/09/2025 8:02 AM EDT)ComponentValueRef RangeTest MethodAnalysis TimePerformed AtPathologist MhitmhutmPNB935 - 100 pg/mL 07/09/2025 9:02 AM [facility] ([facility])Specimen (Source)Anatomical Location / LateralityCollection Method / VolumeCollection TimeReceived Time BloodVenous blood specimen / UnknownVenipuncture / Zhpszsp9807/09/2025 8:02 AM EDT1 8:33 AM EDT Narrative Authorizing ProviderResult TypeResult StatusChjoan JAQUEZ BLOOD ORDERABLESFinal ResultPerforming OrganizationAddressCity/State/ZIP CodePhone Number [facility] ([facility]) [address] [place] [address] * (ABNORMAL) Comprehensive metabolic panel (07/09/2025 8:02 AM EDT)Component ValueRef RangeTest MethodAnalysis TimePerformed AtPathologist SignatureSodium 094500 - 145 mmol/L1 8:56 AM [facility] ([facility])Potassium 4.43.5 - 5.1 mmol/L1 8:56 AM [facility] ([facility])Xekaucgs851 98 - 107 mmol/L1 8:56 AM [facility] ([facility])XF42816 - 31 mmol/L1 8:56 AM [facility] ([facility])Anion Gap77 - 20 mmol/L 07/09/2025 8:56 AM [facility] ([facility])LPF335 - 25 mg/dL07/09/2025 8:56 AM [facility] ([facility])Creatinine0.760.60 - 1.20 mg/dL07/09/2025 8:56 AM [facility] ([facility])BUN/Creatinine Ratio26.310 8:56 AM [facility] ([facility])Yjnmcwy6027 - 100 mg/dL07/09/2025 8:56 AM [facility] ([facility])Calcium8.88.6 - 10.3 mg/dL07/09/2025 8:56 AM [facility] ([facility])FNI3230 - 39 U/L10 8:56 AM [facility] ([facility])ALT (SGPT)127 - 52 U/L1 8:56 AM [facility] ([facility]) Alkaline Xalwihblpan5366 - 104 U/L10 8:56 AM [facility] ([facility])Total Protein6.76.0 - 8.3 g/dL07/09/2025 8:56 AM [facility] ([facility])Albumin3.1(L)3.5 - 5.7 g/dL07/09/2025 8:56 AM [facility] ([facility])Total Bilirubin1.7(H)0.3 - 1.0 mg/dL07/09/2025 8:56 AM [facility] ([facility])eGFR75.3>60.0 mL/min/1.73m* 8:56 AM [facility] ([facility])Comment:[facility]???s estimated glomerular filtration rate (eGFR) will no [...] potential consequences that do not disproportionately affect any one group of ind ividuals.Specimen (Source)Anatomical Location / LateralityCollection Method / VolumeCollection TimeReceived TimeBloodVenous blood specimen / Unknown Venipuncture / Dugeyuj6707/09/2025 8:02 AM EDT1 8:33 AM EDT Narrative Authorizing ProviderResult TypeResult StatusChristopher Dontae PERERALAB BLOOD ORDERABLESFinal ResultPerforming OrganizationAddressCity/State/ZIP CodePhone Number [facility] ([place]) [address] [place] [address] from Last 3 Months Insurance Advance Directives * Full Code (Latest Code Status on File) Date ActivatedDate TilbhlwdxayYfnxgeeq55/24/2025 11:19 AM07/09/2025 1:56 PM Care Teams Team MemberRelationshipSpecialtyStart DateEnd Date Fatoumata Chase [place] [address] PCP - Xmxhilz39/22/25
--- OUTSIDE RECORDS SUMMARY | 2025-07-25 04:51 | XMS_ITS | Clinical Summary ---
Author Organization [facility] Address [address] [place] [address] Phone Care Team Providers Care Street Light Lamp Cleaner Name Role Phone Unavailable Primary Care Provider Unavailabl e Social History Tobacco UseTypesPacks/DayYears UsedDateSmoking Tobacco: Never Assessed CommentsUnknownSex and Gender InformationValueDate RecordedSex Assigned at Not on fileLegal DjkKfcdza77/26/2022 7:03 AM ESTGender IdentityNot on fileSexual OrientationNot on file Plan of Treatment Not on file
--- OUTSIDE RECORDS SUMMARY | 2025-07-25 04:51 | XMS_ITS | Encounter Summary ---
Author Organization [facility] Address [address] [place] [address] Care Team Providers Care Naturalization Examiner Name Role Phone Fatoumata Chase MD Primary Care Provider [phone] Encounter Details DateTypeDepartmentCare Team (Latest Contact Info)Zjqkozkqpih18/03/2025Travel Social History Tobacco UseTypesPacks/DayYears UsedDateSmoking Tobacco: NeverSmokeless Tobacco: NeverAlcohol UseStandard Drinks/WeekCommentsDefer0 (1 standard drink = 0.6 oz pure alcohol)CommentsUnknownSex and Gender InformationValueDate Recorded Sex Assigned at BirthNot on fileLegal XsgByfdot08/15/2023 6:47 PM EDTGender IdentityNot on fileSexual OrientationNot on filedocumented as of this encounter Plan of Treatment DateTypeDepartmentCare Team (Latest Contact Info)Yayuinyizas22/18/2025 10:00 AM ESTProcedure Visit [facility] [address] [place] [address] Argenis Miranda DPM [address] [place] [address] 08/09/2025 10:00 AM ESTOffice Visit [facility] [address] [place] [address] Stephon Kincaid DPM [address] [place] [address] documented as of this encounter Visit Diagnoses Not on filedocumented in this encounter Care Teams Team MemberRelationshipSpecialtyStart DateEnd Date Fatoumata Chase MD [facility] [place] [phone] PCP - GeneralFamily Medicine01/18/25documented as of this encounter
--- OUTSIDE RECORDS SUMMARY | 2025-07-25 04:51 | XMS_ITS | Clinical Summary ---
Author Organization [facility] Address [address] [place] [address] Care Team Providers Care Educational Program Assistant Name Role Phone Fatoumata Chase MD Primary Care Provider [phone] Allergies Active AllergyReactionsCriticalityNoted DateCommentsClarithromycinUnknown 02/02/20250611CflgmuzuCtfdzxx29/20/2023 Medications MedicationSigDispense QuantityRefillsLast FilledStart DateEnd DateStatus furosemide (Lasix) 40 MG tablet 12/20/2022ctive potassium chloride CR (K-Tab) 20 MEQ ER tablet Take 20 mEq by mouth Daily Take with food.12/20/2022ctive ondansetron (Zofran) 4 MG tablet Take 4 mg by mouth 2 (two) times a day as bwsxto8302/25/2023ctive rOPINIRole (Requip) 0.5 MG tablet 12/27/2022ctive metOLazone (Zaroxolyn) 2.5 MG tablet 10/28/2022ctive Active Problems ProblemNoted DateDiagnosed SgihIfciitcvqzjxx23/20/2023ain in both feet 03/05/2023Hammer toes of both feet03/05/2023ontrolled type 2 diabetes mellitus with circulatory disorder, without long-term current use of uyffdtw9603/05/2023 Encounters DateTypeDepartmentCare JytyYminoglrtzr41/03/2025 2:00 PM ESTOffice Visit [facility] [address] [place] [address] Stephon Kincaid, DPM Hammer toes of both feet (Primary Dx); Equinus contracture of left ankle; Equinus contracture of right ankle; Lymphedema; Diabetic polyneuropathy associated with type 2 diabetes mellitus (HCC)07/19/2025 Bamboo flowsheet [facility] [address] [place] [address] Stephon Kincaid DPM 07/19/20259220Mzbfxd43/13/2025 9:30 AM EDTOffice Visit [facility] [address] [place] [address] Stephon Kincaid DPM Hammer toes of both feet (Primary Dx); Equinus contracture of left ankle; Equinus contracture of right ankle; Lymphedema; Diabetic polyneuropathy associated with type 2 diabetes mellitus (HCC)06/28/2025 Bamboo flowsheet [facility] [address] [place] [address] Stephon Kincaid DPM 06/28/20251060Hxxwft91/29/2025 2:00 PM EDTOffice Visit [facility] [address] [place] [address] Stephon Kincaid DPM Diabetic polyneuropathy associated with type 2 diabetes mellitus (HCC) (Primary Dx); 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, without long-term current use of insulin (HCC); Lymphedema; Hammer toes of both feet; Equinus contracture of left ankle; Equinus contracture of right ankle06/14/2025[facility] [address] [place] [address] Stephon Kincaid DPM 06/14/20252295Fwselz78/26/1375Pljjhr63/19/2025 3:15 PM EDTProcedure Visit [facility] [address] [place] [address] Argenis Miranda DPM Onychomycosis (Primary Dx); Pain in both feet; 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, without long-term current use of insulin (HCC); Lymphedema; Hammer toes of both feet05/04/2025amboo flowsheet [facility] [address] [place] [address] Argenis Miranda DPM 05/04/2025Travelfrom Last 3 Months Family History Medical HistoryRelationNameCommentsCancerFatherCancerMaternal GrandmotherStomach cancerMotherRelationNameStatusCommentsFatherDeceasedMaternal GrandmotherMother Social History Tobacco UseTypesPacks/DayYears UsedDateSmoking Tobacco: NeverSmokeless Tobacco: Never Tobacco Cessation:Counseling Given: Not Answered Alcohol UseStandard Drinks/WeekCommentsDefer0 (1 standard drink = 0.6 oz pure alcohol)CommentsUnknownSex and Gender InformationValueDate RecordedSex Assigned at BirthNot on fileLegal UugLwuvip82/15/2023 6:47 PM EDTGender Identity Not on fileSexual OrientationNot on file Last Filed Vital Signs Vital SignReadingTime TakenCommentsBlood Rarsjahx381/6606 12:00 PM EDT Pulse--Temperature--Respiratory Rate--Oxygen Saturation--Inhaled Oxygen Concentration--Wyejlr54.2 kg (179 lb)07/19/2025 2:24 PM KSSIvcwld218.4 cm (5') 07/19/2025 2:24 PM ESTBody Mass Index34.9607/19/2025 2:24 PM EST Plan of Treatment DateTypeDepartmentCare Team (Latest Contact Info)Lkjrbriceuv69/18/2025 10:00 AM ESTProcedure Visit [facility] [address] [place] [phone] Argenis Miranda DPM [address] [place] [address] 08/09/2025 10:00 AM ESTOffice Visit [facility] [address] [place] [address] Stephon Kincaid DPM [address] [place] [address] Insurance * Guarantor: Dottie Bates TypeRelation to PatientDate of BirthPhone Billing AddressPersonal/InhysoFylw1935 [address] [address] Care Teams Team MemberRelationshipSpecialtyStart DateEnd Date Fatoumata Chase MD [address] [place] [phone] PCP - GeneralFamily Medicine01/18/25
--- OUTSIDE RECORDS SUMMARY | 2025-07-25 04:51 | XMS_ITS | Encounter Summary ---
Author Organization [facility] Address [address] [place] [address] Care Team Providers Care Commercial Loan Coordinator Name Role Phone Fatoumata Chase MD Primary Care Provider [phone] Encounter Details DateTypeDepartmentCare Team (Latest Contact Info)Ilnbaolbqhq86/03/2025amboo flowsheet [facility] [address] [place] [address] Stephon Kincaid DPM [address] [place], [place] [phone] Social History Tobacco UseTypesPacks/DayYears UsedDateSmoking Tobacco: NeverSmokeless Tobacco: NeverAlcohol UseStandard Drinks/WeekCommentsDefer0 (1 standard drink = 0.6 oz pure alcohol)CommentsUnknownSex and Gender InformationValueDate Recorded Sex Assigned at BirthNot on fileLegal SebBukxoh65/15/2023 6:47 PM EDTGender IdentityNot on fileSexual OrientationNot on filedocumented as of this encounter Plan of Treatment DateTypeDepartmentCare Team (Latest Contact Info)Oxygrmjtpvi81/18/2025 10:00 AM ESTProcedure Visit [facility] [address] [place] [address] Argenis Miranda DPM [address] [place] [address] 08/09/2025 10:00 AM ESTOffice Visit [facility] [address] [place] [phone] Stephon Kincaid, DPM [address] [place] [address] documented as of this encounter Visit Diagnoses Not on filedocumented in this encounter Care Teams Team MemberRelationshipSpecialtyStart DateEnd Date Fatoumata Chase MD [address] [place] [address] PCP - GeneralFamily Medicine01/18/25documented as of this encounter
[2025-07-25 06:18] LABS: Cast Seen? NONE SEEN #/LPF (NONE SEEN); Crystals Seen? None Seen #/HPF (None Seen); Urine Culture Indicated NO
== END 2025-07-25 06:10 | disposition home or self-care (01) ==
PROVIDERS: Emergency Provider Internal Medicine; PCP Family Medicine
DX: M25.511 Pain in right shoulder (principal); M19.011 Primary osteoarthritis, right shoulder
CPT/HCPCS: 36415; 73030; 80048; 81001; 83605; 84484; 85025; 99284

== ENCOUNTER 2025-08-16 09:50 | Outpatient (OUT) | payer MEDICARE, SELFPAY ==
--- OUTSIDE RECORDS SUMMARY | 2025-08-16 09:00 | XMS_ITS | Encounter Summary ---
Author Organization [facility] Address [address] [place] [address] Care Team Providers Care Faculty Instructor Name Role Phone Fatoumata Chase MD Primary Care Provider [phone] Reason for Visit * ReasonCommentsFollow-upPatient is here today for a follow up admission for HF at [facility] along with a heart cath at [facility]. Patient denies chest pain, palpitations/racing heart. Patient states she feels very shaky and wonders if its from the water pills.Congestive Heart Failurediabetes type 2Hypertension Shortness of BreathSOB/DOEDizzinessDizziness/lightheaded with position changes EdemaBilateral leg swelling Encounter Details DateTypeDepartmentCare Team (Latest Contact Info)Yxhbvfecymq44/01/2025 9:00 AM ESTOffice [facility] [address] [place] [address] Drake Diggs MD [address] [place] [address] Chronic heart failure with preserved ejection fraction (HFpEF) (CMS/HCC) (Primary Dx); Morbid obesity (CMS/HCC); Nonrheumatic aortic valve stenosis Social History Tobacco UseTypesPacks/DayYears UsedDateSmoking Tobacco: NeverSmokeless Tobacco: NeverAlcohol UseStandard Drinks/WeekCommentsNot Currently0 (1 standard drink = 0.6 oz pure alcohol)GA Safety & EnvironmentAnswerDate RecordedFear of Current or Ex-PartnerNot on file12/19/2023Emotionally AbusedNot on file12/19/2023hysically AbusedNot on file04/04/2024Sexually AbusedNot on file12/19/2023hysically or Sexually AbusedNot on file12/19/2023CommentsNoSex and Gender Information ValueDate RecordedSex Assigned at UaivtBssghd99/17/2025 4:14 PM EDTLegal Sex Jibdsx1012/19/2023 9:45 AM EDTGender ZzpwilosTpiucs00/17/2025 4:14 PM EDTSexual OrientationHeterosexual or Flivktfw00/17/2025 4:14 PM EDTdocumented as of this encounter Last Filed Vital Signs Vital SignReadingTime TakenCommentsBlood Dznbelyu643/6108/16/2025 9:15 AM EST Zaeid106508/16/2025 9:15 AM ESTTemperature--Respiratory Rate--Oxygen Zyxjkdmelj51% 08/16/2025 9:15 AM ESTInhaled Oxygen Concentration--Irhltc87 kg (172 lb) 08/16/2025 9:15 AM MVCRrfcgp314.9 cm (4' 11 )08/16/2025 9:15 AM ESTBody Mass Index34.7408/16/2025 9:15 AM ESTdocumented in this encounter Progress Notes * Drake Diggs MD - 08/16/2025 9:00 AM EST Subjective Patient ID: Dottie Bates is a 89 y.o. female who presents for Follow-up (Patient is here today for a follow up admission for HF at [facility] along with a heart cath at [facility]. Patient denies chest pain, palpitations/racing heart. Patient states she feels very shaky and wonders if its from the water pills.), Congestive Heart Failure, diabetes type 2, Hypertension, Shortness of Breath (SOB/RAMIREZ), Dizziness (Dizziness/lightheaded with position changes), and Edema (Bilateral leg swelling). Mrs. Bates states that swelling of legs is much better, especially on the R leg. Has been feeling a little shaky when getting up, but is using walker and doing well. Taking medications as instructed Congestive Heart Failure Associated symptoms include shortness of breath. Hypertension Associated symptoms include shortness of breath. Shortness of Breath Dizziness Edema Past medical history is significant for CHF. Review of Systems Respiratory: Positive for shortness of breath. Neurological: Positive for dizziness. Objective Visit Vitals BP 113/61 (BP Location: Left arm, Patient Position: Sitting) Pulse 78 Physical Exam Constitutional: Appearance: Normal appearance. She is obese. HENT: Head: Normocephalic and atraumatic. Cardiovascular: Rate and Rhythm: Normal rate and regular rhythm. No extrasystoles are present. Chest Wall: PMI is not displaced. No thrill. Pulses: Carotid pulses are 2+ on the right side and 2+ on the left side. Radial pulses are 2+ on the right side and 2+ on the left side. Heart sounds: Heart sounds not distant. Murmur heard. Systolic murmur is present with a grade of 3/6. No diastolic murmur is present. No friction rub. No gallop. Pulmonary: Effort: Pulmonary effort is normal. Breath sounds: Wheezing present. No rales. Abdominal: Palpations: Abdomen is soft. Musculoskeletal: Right lower leg: No edema. Left lower le+ Edema present. Skin: General: Skin is warm and dry. Neurological: Mental Status: She is alert and oriented to person, place, and time. Mental status is at baseline. Psychiatric: Mood and Affect: Mood normal. Behavior: Behavior normal. Thought Content: Thought content normal. Assessment/Plan Mrs. Bates is significant improved with change in diuretics from lasix to chlorthalidone/spironolactone for heart failure with preserved ejection fraction. Will repeat BNP and BMP today to establish a new baseline on diuretic therapy and assess K and Na, especially since she is feeling shaky . Would continue diuretic therapy. She has a loud murmur of aortic stenosis which by recent echo is moderate (18 mmHg gradient). Manage medically with follow up echo in a year. Diagnosis Plan 1. Chronic heart failure with preserved ejection fraction (HFpEF) (CMS/HCC) 2. Morbid obesity (CMS/HCC) 3. Nonrheumatic aortic valve stenosis No orders of the defined types were placed in this encounter. No results found for this or any previous visit (from the past 36 hours). Follow up in about 1 year (around 08/16/2026) for Recheck. documented in this encounter Plan of Treatment Not on file documented as of this encounter Visit Diagnoses Diagnosis Chronic heart failure with preserved ejection fraction (HFpEF) ([facility])- Primary Morbid obesity ([facility]) Morbid obesity Nonrheumatic aortic valve stenosis documented in this encounter Care Teams Team MemberRelationshipSpecialtyStart DateEnd Date Fatoumata Chase MD [address] [place] [address] PCP - Trzkokm25/22/25documented as of this encounter
--- OUTSIDE RECORDS SUMMARY | 2025-08-16 09:58 | XMS_ITS | Encounter Summary ---
Author Organization [facility] Address [address] [place] [address] Care Team Providers Care Smoke Jumper Name Role Phone Fatoumata Chase MD Primary Care Provider [phone] Encounter Details DateTypeDepartmentCare Team (Latest Contact Info)Mljphovxkkl72/24/2025bstract [facility] [address] [place] [address] Stephon Kincaid DPM [address] [place] [address] Social History Tobacco UseTypesPacks/DayYears UsedDateSmoking Tobacco: NeverSmokeless Tobacco: NeverAlcohol UseStandard Drinks/WeekCommentsDefer0 (1 standard drink = 0.6 oz pure alcohol)CommentsUnknownSex and Gender InformationValueDate Recorded Sex Assigned at BirthNot on fileLegal UvyWxlcik50/15/2023 6:47 PM EDTGender IdentityNot on fileSexual OrientationNot on filedocumented as of this encounter Plan of Treatment DateTypeDepartmentCare Team (Latest Contact Info)Lzjxnufuslc88/08/2025 10:00 AM ESTProcedure Visit [facility] [place] [facility] [address] [place] [address] Argenis Miranda DPM [address] [place], [place] [phone] documented as of this encounter Visit Diagnoses Not on filedocumented in this encounter Care Teams Team MemberRelationshipSpecialtyStart DateEnd Date Fatoumata Chase MD [address] [place] [phone] PCP - GeneralFamily Medicine01/18/25documented as of this encounter
--- OUTSIDE RECORDS SUMMARY | 2025-08-16 09:58 | XMS_ITS | Clinical Summary ---
Author Organization [facility] Address [address] [place] [address] Phone Care Team Providers Care Square Shear Operator Name Role Phone Unavailable Primary Care Provider Unavailabl e Social History Tobacco UseTypesPacks/DayYears UsedDateSmoking Tobacco: Never Assessed CommentsUnknownSex and Gender InformationValueDate RecordedSex Assigned at Not on fileLegal QafZrtaer57/26/2022 7:03 AM ESTGender IdentityNot on fileSexual OrientationNot on file Plan of Treatment Not on file
--- OUTSIDE RECORDS SUMMARY | 2025-08-16 09:58 | XMS_ITS | Encounter Summary ---
Author Organization [facility] Address [address] [place] [address] Care Team Providers Care Care Trainer Name Role Phone Fatoumata Chase MD Primary Care Provider [phone] Reason for Visit * ReasonOnset DateCommentsAdvice Only08/06/2025Keeping DM shoes Encounter Details DateTypeDepartmentCare Team (Latest Contact Info)Fgbnvfxrhsj05/21/2025Telephone [facility] [address] [place] [address] Stephon Kincaid, DPM [address] [place], [place] [phone] Advice Only (Keeping DM shoes ) Social History Tobacco UseTypesPacks/DayYears UsedDateSmoking Tobacco: NeverSmokeless Tobacco: NeverAlcohol UseStandard Drinks/WeekCommentsDefer0 (1 standard drink = 0.6 oz pure alcohol)CommentsUnknownSex and Gender InformationValueDate Recorded Sex Assigned at BirthNot on fileLegal KgoJqlwie07/15/2023 6:47 PM EDTGender IdentityNot on fileSexual OrientationNot on filedocumented as of this encounter Miscellaneous Notes * Telephone Encounter - Alesha Olivo - 08/06/2025 11:25 AM EST Cancelled shoe check appt. She likes her shoes and is keeping them. documented in this encounter Plan of Treatment DateTypeDepartmentCare Team (Latest Contact Info)Mmbhzndoric97/08/2025 10:00 AM ESTProcedure Visit [facility] [place] [facility] [address] [facility] [address] [place] [phone] Argenis Miranda DPM [address] [facility] [address] [place] [address] documented as of this encounter Visit Diagnoses Not on filedocumented in this encounter Care Teams Team MemberRelationshipSpecialtyStart DateEnd Date Fatoumata Chase MD [address] [facility] [place] [address] PCP - GeneralFamily Medicine01/18/25documented as of this encounter
--- OUTSIDE RECORDS SUMMARY | 2025-08-16 09:58 | XMS_ITS | Clinical Summary ---
Author Organization [facility] Address [address] [place] [address] Care Team Providers Care Firer Tunnel Kiln Name Role Phone Fatoumata Chase MD Primary Care Provider [phone] Allergies Active AllergyReactionsCriticalityNoted DateCommentsClarithromycinUnknown 02/02/20258373YrrgrbolAnnvolu97/20/2023 Medications MedicationSigDispense QuantityRefillsLast FilledStart DateEnd DateStatus furosemide (Lasix) 40 MG tablet 12/20/2022ctive potassium chloride CR (K-Tab) 20 MEQ ER tablet Take 20 mEq by mouth Daily Take with food.12/20/2022ctive ondansetron (Zofran) 4 MG tablet Take 4 mg by mouth 2 (two) times a day as ehlskm2202/25/2023ctive rOPINIRole (Requip) 0.5 MG tablet 12/27/2022ctive metOLazone (Zaroxolyn) 2.5 MG tablet 10/28/2022ctive Active Problems ProblemNoted DateDiagnosed CujrMineipmvmahet02/20/2023ain in both feet 03/05/2023Hammer toes of both feet03/05/2023ontrolled type 2 diabetes mellitus with circulatory disorder, without long-term current use of dpfnmni5803/05/2023 Encounters DateTypeDepartmentCare RjgmCtcagoepzqd71/24/2025bstract [facility] [address] [place] [address] Stephon Kincaid DPM 08/06/2025Telephone [facility] [address] [place] [address] Stephon Curry DPM Advice Only (Keeping DM shoes )07/19/2025 2:00 PM ESTOffice Visit [facility] [address] [place] [address] Stephon Kincaid DPM Hammer toes of both feet (Primary Dx); Equinus contracture of left ankle; Equinus contracture of right ankle; Lymphedema; Diabetic polyneuropathy associated with type 2 diabetes mellitus (HCC)07/19/2025 [facility] flowsheet [facility] [address] [place] [address] Stephon Kincaid DPM 07/19/20258419Nohgvx70/13/2025 9:30 AM EDTOffice Visit [facility] [address] [place] [address] Stephon Kincaid DPM Hammer toes of both feet (Primary Dx); Equinus contracture of left ankle; Equinus contracture of right ankle; Lymphedema; Diabetic polyneuropathy associated with type 2 diabetes mellitus (HCC)06/28/2025 [facility] flowsheet [facility] [address] [place] [address] Stephon Kincaid DPM 06/28/20259871Arowgd69/29/2025 2:00 PM EDTOffice Visit [facility] [address] [place] [address] Stephon Kincaid DPM Diabetic polyneuropathy associated with type 2 diabetes mellitus (HCC) (Primary Dx); 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, without long-term current use of insulin (HCC); Lymphedema; Hammer toes of both feet; Equinus contracture of left ankle; Equinus contracture of right ankle06/14/2025[facility] flowsheet [facility] [address] [place] [address] Stephon Kincaid DPM 06/14/20257642Jhaszi02/Travelfrom Last 3 Months Family History Medical HistoryRelationNameCommentsCancerFatherCancerMaternal GrandmotherStomach cancerMotherRelationNameStatusCommentsFatherDeceasedMaternal GrandmotherMother Social History Tobacco UseTypesPacks/DayYears UsedDateSmoking Tobacco: NeverSmokeless Tobacco: Never Tobacco Cessation:Counseling Given: Not Answered Alcohol UseStandard Drinks/WeekCommentsDefer0 (1 standard drink = 0.6 oz pure alcohol)CommentsUnknownSex and Gender InformationValueDate RecordedSex Assigned at BirthNot on fileLegal ByqLdrngk19/15/2023 6:47 PM EDTGender Identity Not on fileSexual OrientationNot on file Last Filed Vital Signs Vital SignReadingTime TakenCommentsBlood Fxpjbumh858/6606 12:00 PM EDT Pulse--Temperature--Respiratory Rate--Oxygen Saturation--Inhaled Oxygen Concentration--Pspsbd31.2 kg (179 lb)07/19/2025 2:24 PM KYBYdnuos292.4 cm (5') 07/19/2025 2:24 PM ESTBody Mass Index34.9607/19/2025 2:24 PM EST Plan of Treatment DateTypeDepartmentCare Team (Latest Contact Info)Daugjjqkgvm12/08/2025 10:00 AM ESTProcedure Visit [facility] [place] [facility] [address] [place] [address] Argenis Miranda DPM [address] [place] [address] Insurance Care Teams Team MemberRelationshipSpecialtyStart DateEnd Date Fatoumata Chase MD [address] [place] [phone] PCP - GeneralFamily Medicine01/18/25
--- OUTSIDE RECORDS SUMMARY | 2025-08-16 09:59 | XMS_ITS | Clinical Summary ---
Author Organization [facility] Address [address] [address] Care Team Providers Care Field Examiner Name Role Phone Fatoumata Chase MD Primary Care Provider [phone] Allergies Active AllergyReactionsCriticalityNoted DateCommentsClarithromycinUnknown,Other 02/02/20250056UacfzdunexukeduufvAksjd78/23/7881XrsaemhlfhspDiqaf37/23/2025 Utmfrgg-Jngkyuecx-UisetiorclczRrzdf17/14/0812ShovhtxvmlqdqGrrvjjz25/23/2025 FypeyvvsCasktmg41/20/0427MqukfsowsRbgqlfz25/23/2025 Medications MedicationSigDispense QuantityRefillsLast FilledStart DateEnd DateStatus nitrofurantoin, macrocrystal-monohydrate, (Macrobid) 100 mg capsule Take 100 mg by mouth every 12 (twelve) hours.06/29/2025tive rOPINIRole (Requip) 0.5 mg tablet Take 0.5 mg by mouth in the morning and at bedtime.Active ondansetron (Zofran) 4 mg tablet Take 4 mg by mouth every 8 (eight) hours if needed for nausea or vomiting.Active spironolactone (Aldactone) 25 mg tablet Indications:Chronic heart failure with preserved ejection fraction (HFpEF) (CMS/HCC)Take 1 tablet (25 mg) by mouth in the morning. 30 tablet //ctive chlorthalidone (Hygroton) 25 mg tablet Indications:Chronic heart failure with preserved ejection fraction (HFpEF) (CMS/HCC)Take 1 tablet (25 mg) by mouth in the morning. 30 tablet /00914510/07/2025ctive potassium chloride CR (Klor-Con M20) 20 mEq ER tablet Take 1 tablet by mouth in the morning.Discontinued(Therapy completed) Active Problems ProblemNoted DateDiagnosed LeoyTszbfvyz18/22/2025Acute vgihwnuanyoms85/21/2025 Balance udtomsrq56/21/0333Kgiklwihgtymnq21/21/2025HF (congestive heart failure) 07/06/2025hronic cough07/06/2025Diabetes mellitus with hyperglycemia, without long-term current use of smpkbnd9107/06/2025Encounter for qmpgkoaocsuu71/21/2025 HTN (hypertension)07/06/2025Lumbar degenerative disc ooyxsup6507/06/2025Lymphedema 07/06/2025Morbid vygmrpw1207/06/20257707Mbdbxm27/21/2025Obstructive sleep apnea 07/06/2025Interstitial lung ccrbaas3807/06/2025Restless leg ojflbvkk94/21/2025 Systolic ejection vskjzx82Upper airway cough ocfwybok86/21/2025 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, without long-term current use of izawccl3403/05/2023Hammer toes of both feet03/05/2023Onychomycosis 03/05/2023ain in both feet03/05/2023 Encounters DateTypeDepartmentCare QqpkKkmxfyjingr91/01/2025 9:00 AM ESTOffice Visit [facility] [address] [place] [address] Drake Diggs MD Chronic heart failure with preserved ejection fraction (HFpEF) (CMS/HCC) (Primary Dx); Morbid obesity (CMS/HCC); Nonrheumatic aortic valve agntegqk91/01/2025Orders Only [facility] [address] [place] [address] Arlet Payne MA Acute combined systolic and diastolic heart failure (CMS/HCC) (Primary Dx); Mitral valve stenosis and aortic valve opucsuup37/24/2025 11:00 AM EDT - 07/09/2025 12:[address] [facility] V[facility] Lab [address] [place] [phone] Drake Diggs MD Right heart cath [66050 (CPT??)]07/09/2025 8:[address] [facility] Outpatient Draw Station [address] [place] [phone] Abnormal EKG; Pre-op mhhavgmjyu28/24/2025 7:56 AM EDT - 07/09/2025 11:55 AM EDTHospital Encounter [facility] Heart [facility] [place] [facility] [address] [place] [phone] Drake Diggs MD Chronic heart failure with preserved ejection fraction (HFpEF) (CMS/HCC) (Primary Dx); Anasarca Discharge Disposition: Home or Self Care (01)07/08/20255541Yzmwbi11/22/2025 10:20 AM EDTOffice Visit [facility] [address] [facility] [address] Drake Diggs MD Anasarca (Primary Dx); Morbid obesity (CMS/HCC); Atrial premature beats07/07/2025Orders Only [facility] [address] [place] [address] Arlet Payne MA Abnormal EKG (Primary Dx); Pre-op izvppbwhve27/09/2025Telephone [facility] [address] [place] [address] Kerri Major MA from Last 3 Months Family History Medical HistoryRelationNameCommentsCancerFatherEmphysemaMotherRelationNameStatus CommentsBrotherDeceasedFatherDeceasedMotherDeceased Social History Tobacco UseTypesPacks/DayYears UsedDateSmoking Tobacco: NeverSmokeless Tobacco: Never Tobacco Cessation:Counseling Given: Not Answered Alcohol UseStandard Drinks/WeekCommentsNot Currently0 (1 standard drink = 0.6 oz pure alcohol)[place] Safety & EnvironmentAnswerDate RecordedFear of Current or Ex-PartnerNot on file12/19/2023Emotionally AbusedNot on file12/19/2023hysically AbusedNot on file12/19/2023Sexually AbusedNot on file12/19/2023hysically or Sexually AbusedNot on file12/19/2023CommentsNoSex and Gender Information ValueDate RecordedSex Assigned at WeobuKrujjy74/17/2025 4:14 PM EDTLegal Sex Lgnqnx6412/19/2023 9:45 AM EDTGender DnjmbexnZchqta02/17/2025 4:14 PM EDTSexual OrientationHeterosexual or Gcqfcfbr92/17/2025 4:14 PM EDT Last Filed Vital Signs Vital SignReadingTime TakenCommentsBlood Mepphvbp426/6108/16/2025 9:15 AM EST Kcadd820208/16/2025 9:15 AM ESTTemperature--Respiratory Jjnf0851 11:45 AM EDTOxygen Xirnchdcwj82%08/16/2025 9:15 AM ESTInhaled Oxygen Concentration-- Gnojug40 kg (172 lb)08/16/2025 9:15 AM OCZGqfvat525.9 cm (4' 11 )08/16/2025 9:15 AM ESTBody Mass Index34.7408/16/2025 9:15 AM EST Plan of Treatment Health MaintenanceDue DateLast DoneCommentsDiabetes: Hemoglobin A1C1937 Medicare Annual Wellness (AWV)1937Diabetes: Retinopathy Screening 1947Depression Kenrvfmlz29/02/1949Diabetes: Urine Protein Screening 1956dult Ewncvfd3403/17/1959Zoster Vaccines (1 of 2)1987Fall Risk Ywyhhiepo00/02/2002COVID-19 Vaccine ( season)512/, 11/22/2020, 1Pneumococcal Vaccine: 50+ NnzrvBilrfqyfk64/10/2019, 01/29/2017, 10/17/2014Influenza AxmfmnuMzekzgsew59/23/2025, 06/08/2024, 07/19/2022, Additional history existsHIB VaccinesAged OutNo [...] topic Procedures Procedure NamePriorityDate/TimeAssociated DiagnosisCommentsRIGHT HEART CATH Wmythmd0207/09/2025 11:11 AM EDT Anasarca %HTS8Vjloklp29/24/2025 11:10 AM EDT %YSB1Yifglye63/24/2025 11:04 AM EDT %TEE5Plnmjnr97/24/2025 11:03 AM EDT %PFY3Wuifshz60/24/2025 11:02 AM EDT %OLK4Mxqmfsh39/24/2025 11:00 AM EDT %ADR3Fepvgxu76/24/2025 10:59 AM EDT CBC WITH AUTO EULJNGIFUYLVUceodhf92/24/2025 8:02 AM EDT Abnormal EKG Pre-op evaluation B-TYPE NATRIURETIC JFHCBFGHbyipzc43/24/2025 8:02 AM EDT Abnormal EKG Pre-op evaluation COMPREHENSIVE METABOLIC DAKZTAklkjfr99/24/2025 8:02 AM EDT Abnormal EKG Pre-op evaluation CBC AND TBAMKCHVTHOZAmwqzmt38/24/2025 8:02 AM EDT Abnormal EKG Pre-op evaluation [...] and a micropuncture access technique a 6 Italian sheath was placed in the right internal [...] Anasarca [R60.1] Authorizing ProviderResult TypeResult StatusChristopher Dontae [facility] CARDIAC CATH PROCEDURESFinal Result * (ABNORMAL) %HbO2 (07/09/2025 11:10 AM EDT) Only the most recent of6 resultswithin the time period is included. ComponentValueRef RangeTest MethodAnalysis TimePerformed AtPathologist Signature O2Hb%81.8(L)90.0 - 95.0 %07/09/2025 11:10 AM [facility] ([facility]) Specimen (Source)Anatomical Location / LateralityCollection Method / Volume Collection TimeReceived TimeBloodVenous blood specimen / Kwtswtw6707/09/2025 11:10 AM EDT1 11:10 AM EDT Narrative Authorizing ProviderResult TypeResult StatusChristopher Dontae JAQUEZ POINT OF CARE TEST DOCKED DEVICE UNSOLICITED RESULTSFinal ResultPerforming Organization AddressCity/State/ZIP CodePhone Number [facility] ([facility]) [address] [place] [address] * (ABNORMAL) CBC auto differential (07/09/2025 8:02 AM EDT)ComponentValueRef RangeTest MethodAnalysis TimePerformed AtPathologist SignatureAuto WBC6.074.00 - 10.60 10*3/uL07/09/2025 8:46 AM [facility] ([facility])RBC4.463.80 - 5.00 10*6/uL07/09/2025 8:46 AM [facility] ([facility])Edaudagvxx51.312.0 - 15.0 g/dL07/09/2025 8:46 AM [facility] ([facility])Xyibebtbok47.336.0 - 45.0 %07/09/2025 8:46 AM [facility] ([facility])MCV97.182.0 - 98.0 fL 07/09/2025 8:46 AM [facility] ([facility])MCH32.127.0 - 33.0 pg 07/09/2025 8:46 AM [facility] ([facility])MCHC33.032.0 - 35.0 g/dL 07/09/2025 8:46 AM [facility] ([facility])RDW13.911.5 - 15.0 %07/09/2025 8:46 AM [facility] ([facility])Neutrophils %55.040.0 - 72.0 %07/09/2025 8:46 AM [facility] ([facility])Lymphocytes %26.720.0 - 45.0 %07/09/2025 8:46 AM [facility] ([facility])Monocytes %11.55.0 - 12.0 %07/09/2025 8:46 AM [facility] ([facility])Eosinophils %4.30.0 - 6.0 %07/09/2025 8:46 AM [facility] ([facility])Basophils %1.5(H)0.0 - 1.0 %07/09/2025 8:[address] [facility])Neutrophils Absolute3.341.60 - 7.60 10*3/uL07/09/2025 8:[address] [facility])Lymphocytes Absolute 1.621.20 - 4.00 10*3/uL07/09/2025 8:46 AM [facility] ([facility]) Monocytes Absolute0.700.10 - 1.00 10*3/uL07/09/2025 8:46 AM [facility] ([facility])Eosinophils Absolute0.260.00 - 0.50 10*3/uL07/09/2025 8:46 AM [facility] ([facility])Basophils Absolute0.090.00 - 0.20 10*3/uL07/09/2025 8:[address] [facility])Hvwzlclzg163831 - 400 10*3/uL07/09/2025 8:46 AM [facility] ([facility])nRBC %0.00 %07/09/2025 8:46 AM [facility] ([facility])Immature Granulocytes %1.00.0 - 1.0 %07/09/2025 8:[address] [facility])Immature Granulocytes Absolute0.060.00 - 0.20 10*3/uL07/09/2025 8:[address] [facility])Specimen (Source) Anatomical Location / LateralityCollection Method / VolumeCollection Time Received TimeBloodVenous blood specimen / UnknownVenipuncture / Unknown 07/09/2025 8:02 AM EDT1 8:33 AM EDT Narrative Authorizing ProviderResult TypeResult StatusChriscatalina Diggs [facility] BLOOD ORDERABLESFinal ResultPerforming OrganizationAddressCity/State/ZIP CodePhone Number [facility] ([facility]) [address] [place] [address] * B-type natriuretic peptide (07/09/2025 8:02 AM EDT)ComponentValueRef RangeTest MethodAnalysis TimePerformed AtPathologist QsglvewmvGNW603 - 100 pg/mL 07/09/2025 9:02 AM [facility] ([facility])Specimen (Source)Anatomical Location / LateralityCollection Method / VolumeCollection TimeReceived Time BloodVenous blood specimen / UnknownVenipuncture / Ndrbvkg2107/09/2025 8:02 AM EDT1 8:33 AM EDT Narrative Authorizing ProviderResult TypeResult StatusChriscatalina Diggs [facility] BLOOD ORDERABLESFinal ResultPerforming OrganizationAddressCity/State/ZIP CodePhone Number [facility] ([facility]) [address] [place] [address] * (ABNORMAL) Comprehensive metabolic panel (07/09/2025 8:02 AM EDT)Component ValueRef RangeTest MethodAnalysis TimePerformed AtPathologist SignatureSodium 729523 - 145 mmol/L1 8:56 AM [facility] ([facility])Potassium 4.43.5 - 5.1 mmol/L1 8:56 AM [facility] ([facility])Cmrcbiqc182 98 - 107 mmol/L1 8:56 AM [facility] ([facility])AB93764 - 31 mmol/L1 8:56 AM [facility] ([facility])Anion Gap77 - 20 mmol/L 07/09/2025 8:56 AM [facility] ([facility])VRF021 - 25 mg/dL07/09/2025 8:56 AM [facility] ([facility])Creatinine0.760.60 - 1.20 mg/dL07/09/2025 8:56 AM [facility] ([facility])BUN/Creatinine Ratio26.310 8:56 AM [facility] ([facility])Iwroiyt4370 - 100 mg/dL07/09/2025 8:56 AM [facility] ([facility])Calcium8.88.6 - 10.3 mg/dL07/09/2025 8:56 AM [facility] ([facility])XHJ1917 - 39 U/L10 8:56 AM [facility] ([facility])ALT (SGPT)127 - 52 U/L1 8:56 AM [facility] ([facility]) Alkaline Bqkgaqueutl4332 - 104 U/L1 8:56 AM [facility] ([facility])Total Protein6.76.0 - 8.3 g/dL07/09/2025 8:56 AM [facility] ([facility])Albumin3.1(L)3.5 - 5.7 g/dL07/09/2025 8:56 AM [facility] ([facility])Total Bilirubin1.7(H)0.3 - 1.0 mg/dL07/09/2025 8:56 AM [facility] ([facility])eGFR75.3>60.0 mL/min/1.73m* 8:56 AM [facility] ([facility])Comment:The [facility]???s estimated glomerular filtration rate (eGFR) will no [...] TimeBloodVenous blood specimen / Unknown Venipuncture / Vyfxvmq5907/09/2025 8:02 AM EDT1 8:33 AM EDT Narrative Authorizing ProviderResult TypeResult StatusChristopher Dontae [facility] BLOOD ORDERABLESFinal ResultPerforming OrganizationAddressCity/State/ZIP CodePhone Number [facility] ([place]) [address], [place] [id number] from Last 3 Months Insurance Advance Directives * Full Code (Latest Code Status on File) Date ActivatedDate HzvwymkscrmOltonlnr24/24/2025 11:19 AM07/09/2025 1:56 PM Care Teams Team MemberRelationshipSpecialtyStart DateEnd Date Fatoumata Chase MD [address] [place] [address] PCP - Mjhbzsv83/22/25
--- OUTSIDE RECORDS SUMMARY | 2025-08-16 09:59 | XMS_ITS | Encounter Summary ---
Author Organization [facility] Address [address] [place] [address] Care Team Providers Care Recreation Therapy Director Name Role Phone Fatoumata Chase MD Primary Care Provider [phone] Reason for Referral * Imaging (Routine) - Pending ReviewSpecialtyDiagnoses / ProceduresReferred By ContactReferred To ContactCardiology Diagnoses Acute combined systolic and diastolic heart failure (CMS/HCC) Mitral valve stenosis and aortic valve stenosis Procedures Transthoracic echo (TTE) complete Drake Diggs MD [address] [place] [address] Phone: tel: fax: Referral IDStatusReasonStart DateExpiration DateVisits RequestedVisits [id number] Review Perform Procedure Encounter Details DateTypeDepartmentCare Team (Latest Contact Info)Yygpyfpsdmf78/01/2025Orders Only [facility] [address] [place] [address] Arlet Payne MA Acute combined systolic and diastolic heart failure (CMS/HCC) (Primary Dx); Mitral valve stenosis and aortic valve stenosis Social History Tobacco UseTypesPacks/DayYears UsedDateSmoking Tobacco: NeverSmokeless Tobacco: NeverAlcohol UseStandard Drinks/WeekCommentsNot Currently0 (1 standard drink = 0.6 oz pure alcohol)[place] Safety & EnvironmentAnswerDate RecordedFear of Current or Ex-PartnerNot on file12/19/2023Emotionally AbusedNot on file12/19/2023hysically AbusedNot on file12/19/2023Sexually AbusedNot on file12/19/2023hysically or Sexually AbusedNot on file12/19/2023CommentsNoSex and Gender Information ValueDate RecordedSex Assigned at PauwkWhnjau43/17/2025 4:14 PM EDTLegal Sex Bcsyta2012/19/2023 9:45 AM EDTGender DqgpxstpLrkveo34/17/2025 4:14 PM EDTSexual OrientationHeterosexual or Apbrehzc71/17/2025 4:14 PM EDTdocumented as of this encounter Plan of Treatment NameTypePriorityAssociated DiagnosesOrder ScheduleB-type natriuretic peptideLab Routine Acute combined systolic and diastolic heart failure (CMS/HCC) Expected: 08/16/2025 (Approximate), Expires: 08/16/2026asic metabolic panelLab Routine Acute combined systolic and diastolic heart failure (CMS/HCC) Expected: 08/16/2025 (Approximate), Expires: 08/16/2026Transthoracic echo (TTE) completeEchocardiographyRoutine Acute combined systolic and diastolic heart failure (CMS/HCC) Mitral valve stenosis and aortic valve stenosis Expected: 08/16/2025 (Approximate), Expires: 08/16/2027documented as of this encounter Visit Diagnoses Diagnosis Acute combined systolic and diastolic heart failure (CMS/HCC)- Primary Acute combined systolic and diastolic heart failure Mitral valve stenosis and aortic valve stenosis documented in this encounter Care Teams Team MemberRelationshipSpecialtyStart DateEnd Date Fatoumata Chase MD [address] [place] [address] PCP - Tytlfxh96/22/25documented as of this encounter
--- OUTSIDE RECORDS SUMMARY | 2025-08-16 10:04 | XMS_ITS | CCD ---
Author Organization [facility] Care Team Providers Care Speech Therapist Early Intervention Name Role Phone Brendon Castelan Unavailable [place] Unavailable Bobby Ramesh Unavailable MD Brendon Castelan Primary Care Provider MD Brendon Castelan Attending Provider Staci Asencio Unavailable MD Brendon Castelan Primary Care Provider GREG Asencio Attending Provider [phone] MD Brendon Castelan Attending Provider [phone] [address] CHON LYNCH Admitting Unavailable HERI .DR PAULINO Consulting Unavailable SYED, DR CHON Henry Attending Unavailable [facility] [place] Primary Care Unavailable MADIE, DR [...] DR HEALY Primary Care Unavailable SHAIKH Cris SAHW Admitting Unavailable DR MARQUIS MIRANDA Consulting Unavailable [...] Castelan Attending Provider GREG Asencio Attending Provider [phone] Brendon Castelan Admitting Unavailable Brendon Castelan Primary Care Unavailable Brendon Castelan Attending Unavailable Brendon Castelan Admitting Unavailable rBendon Castelan Primary Care Unavailable Brendon Castelan Attending [...] Klein, Ingrid Attending Unavailable Morena Vera Unavailable [phone] Fatoumata Chase MD Primary Care Provider Fatoumata Chase MD Primary Care Provider Fatoumata Chase MD Primary Care Provider Fatoumata Chase MD Primary Care Provider Fatoumata Chase MD Primary Care Provider [phone] Fatoumata Chase MD Attending Provider [phone] SHRUTHI ORTEGA Admitting Unavailable SHRUTHI ORTEGA Attending Unavailable SHRUTHI ORTEGA Attending Unavailable JIMMY MIRANDA Attending Unavailable JIMMY MIRANDA Attending Unavailable ZULEMA REID Attending Unavailable JIMMY MIRANDA Attending Unavailable STEPHON KINCAID Attending Unavailable SEN MIRANDAANDRA H Referring Unavailable STEPHON KINCAID Attending Unavailable STEPHON KINCAID Attending Unavailable Allergies Allergy ClassificationReported Allergen(s)Allergy TypeDate of OnsetReaction(s) Facility (20 sources)Acetaminophen / dichloralphenazone / isometheptene; Translations: [MIDRIN]Drug Eifsjtg35-01-7507DrubplaMot [facility] (20 sources)Acetaminophen / oxyCODONEDrug AllergyUnknoFulton State Hospital [employer] Other (20 sources)Clarithromycin; Translations: [CLARITHROMYCIN]Drug Zihrytt70-78-0481 Unknown, [facility] ReactionBer[facility] (20 sources)Esomeprazole; Translations: [ESOMEPRAZOLE]Drug Fpwoaje46-19-2211 stomach upsetBerger Hospital (20 sources)Naproxen; Translations: [NAPROXEN]Drug Jnlgfox51-38-2386NntipdqMansfield Hospital (8 sources)Acetaminophen; Translations: [acetaminophen]Drug Zszxkax31-48-8933 Unknown ReactionBerger Hospital (14 sources)dichloralphenazone; Translations: [dichloralphenazone]Drug Allergy 79-26-8136AlzqmjoSelect [facility]ty [facility] [place] (14 sources)isometheptene; Translations: [isometheptene]Drug Mmyjbhm54-34-4794 Unknown [facility] (14 sources)oxyCODONE; Translations: [oxycodone]Drug Swgrvwh81-30-6556QuunwquSelect Medical Specialty Hospital [facility] [place] (20 sources)Acetaminophen / dichloralphenazone / isomethepteneDrug Allergy 14-71-8367HuzldenOhioHealth Shelby Hospital (1 source)ClarithromycinDrug Vgtkxcs61-41-9002JxnPro[facility] (1 source)NaproxenDrug Cwurpmp29-95-9548HwxProtestant Deaconess Hospital [facility] (1 source)ClarithromycinDrug Xiidusg64-08-8598ZiuuneyfwBerger Hospital Repository (1 source)EsomeprazoleDrug Fofbokl83-19-2834QptcwzbbdBerger Hospital Repository (1 source)NaproxenDrug Wbgapzm72-82-9620ChtbdujfvBerger Hospital Repository (13 sources)ClarithromycinAllergy to ehmvzyuiu80-59-5117FekjntqROMI Healthcare (1 source)QOJEQWN-ZLSUSTVOK-JHWIHLWBZKOF; Translations: [TRRPWPB-MJMGXFDDQ-KWNIWCZCEVPQ]Propensity to adverse reactions to drug (disorder)35-08-6638CktxrxxrbiKettering [facility] Rep[facility] Medications Current Medications MedicationDrug Class(es)DatesSig (Normalized)Sig (Original)8 hr acetaminophen 650 mg extended release oral tablet (20 sources)Start: 37-85-0846uoui 1 tablet by mouth every twelve hours Acetaminophen (Tylenol Arthritis Pain) 650 mg tablet extended release Active 650 MG PO Every 12 hours January 28, 2024 12:00am Complies with drug therapyStart: 06-12-2018 End: 91-29-4382Vonbvckrmlhvb (Tylenol Extra Strength) 500 mg tablet Active [...] ActiveCpap (Continuous Positive Airway Pressure) (2 sources)Start: 04-71-9356Uhbb (Continuous Positive Airway Pressure) Active 0 .Route January 28, 2024 12:00am As directed [facility] Foruforever Cpap (Continuous Positive Airway Pressure) unit (2 sources)Start: 91-21-8883Ltvj (Continuous Positive Airway Pressure) unit Active 0 .Route January 28, 2024 12:00am As directed Groove Clubdiclofenac sodium 0.01 mg/mg topical gel (6 sources)Nonsteroidal Anti-inflammatory DrugStart: 92-73-9493Yycss: 05-25-2020 Diclofenac Sodium 1 % as directed Transdermal Twice a day May, Active melatonin 10 mg oral tablet (4 sources)Start: 47-63-8886mwit 1 tablet by mouth once daily at bedtime Melatonin 10 mg tablet Active 10 MG PO Daily at bedtime January 28, 2024 12:00am Complies with drug therapymetOLazone 2.5 mg oral tablet (19 sources)Thiazide-like DiureticStart: 71-62-2191rrgELqzald (Zaroxolyn) 2.5 MG tablet 10/28/2022 Activenitrofurantoin, macrocrystals 25 mg / nitrofurantoin, monohydrate 75 mg oral capsule (20 sources)Nitrofuran AntibacterialStart: 11-07-2023 End: 38-66-6549xhoe 1 capsule by mouth once daily at mealtimeNitrofurantoin Monohyd/M-Cryst 100 mg capsule Active 0 .ROUTE .COMPLEX May 27, 2025 4:34pm TAKE 1 CAPSULE BY MOUTH DAILY WITH FOOD Complies with drug therapyStart: 11-07-2023 End: 08-81-4598rsot 1 capsule by mouth once dailyNitrofurantoin Monohyd/M-Cryst 100 mg capsule Discontinued 100 MG PO Daily November 07, 2023 1:00am November 07, 2023 3:09pmtake 1 capsule by mouth every twenty-four hoursNitrofurantoin Monohyd Macro 100 MG 1 capsule with food Orally daily for 30 days Activenystatin 669219 unt/ml topical cream (1 source)Polyene AntifungalNystatin 859729 UNIT/GM 1 application Externally Twice a day for 10 days Activeondansetron 4 mg oral tablet (20 sources)Serotonin-3 Receptor AntagonistStart: 08-11-2024 End: 01-58-1394wxrf 1 tablet by mouth three times daily as neededOndansetron Hcl 4 mg tablet Active 0 .ROUTE .COMPLEX March 29, 2025 10:50am TAKE 1 TABLET BY MOUTH THREE TIMES DAILY NEEDED *MUST LAST 30 DAYS* Complies with drug therapyStart: 01-27-2024 End: 74-42-7924tpzt 1 tablet by mouth twice daily as neededOndansetron Hcl 4 mg tablet Discontinued 0 .ROUTE .COMPLEX March 05, 2024 1:59pm May 04 12:10pm TAKE 1 TABLET BY MOUTH TWICE DAILY NEEDEDStart: 07-21-2018 End: 50-61-1946dwlz 1 tablet by mouth three times daily as needed for nausea and vomitingOndansetron (Zofran Odt) 4 mg Tablet,Disintegrating Discontinued 4 MG PO Three times daily as needed for Nausea And Vomiting July 21, 2018 1:00am September 29, 2018 4:59pmStart: 04-05-2018 End: 12-03-3315odcw 1 tablet by mouth twice daily as neededondansetron (Zofran) 4 MG tablet Take 4 mg by mouth 2 (two) times a day as needed 02/25/2023 Active take 1 tablet by mouth three times daily as neededOndansetron HCl 4 MG 1 tablet Orally tid prn for 30 days ActiveOne Touch Glucometer (14 sources)Start: 82-90-2824Wpu Touch Glucometer to check BS twice daily for 365 days Ultra Mar, ActiveRollator (20 sources)Start: 83-13-0951Pscub: 66-40-0161Njyenvli Jul, Active rOPINIRole 0.5 mg oral tablet (20 sources)Nonergot Dopamine AgonistStart: 02-24-2024 End: 96-66-1725mqpz 1 tablet by mouth twice dailyRopinirole 0.5 mg tablet Active 0 .ROUTE .COMPLEX 60 February 25, 2025 10:07am TAKE 1 TABLET BY MOUTHTWICE DAILY Complies with drug therapyStart: 12-27-2022 End: 85-29-8512lCGNHQTziz (Requip) 0.5 MG tablet 12/27/2022 Activetake 1 tablet by mouth at bedtimerOPINIRole HCl 0.5 mg TAKE 1 TABLET BY MOUTH 1-3 HOURS BEFORE bedtime for 90 ActiveSITagliptin 100 mg oral tablet (4 sources)Dipeptidyl Peptidase 4 Inhibitortake 1 tablet by mouth every twenty- four hoursJanuvia 100 MG 1 tablet Orally Once a day for 28 days ActiveWalker (Ultra-Light Rollator) misc (2 sources)Start: 94-40-4803Rqrqhb (Ultra-Light Rollator) misc Active 0 .Route 1 September 07, 2024 1:00am As directed Completed/Discontinued Medications MedicationDrug Class(es)DatesSig (Normalized)Sig (Original)acetaminophen 325 mg / HYDROcodone bitartrate 5 mg oral tablet (20 sources)Opioid AgonistStart: 41-17-8004mpes 1 tablet by mouth twice daily as neededHYDROcodone-Acetaminophen 5-325 MG 1 tablet as needed Orally twice daily for 30 days G89.29 Chronicpain Dec, Not-TakingStart: 04-14-2019 End: 09-00-4376Vtglaqdngpt-Acetaminophen ([place]) 5-325 mg Tablet Discontinued April 14, 2019 12:00am December 02, 2023 2:42pmbenzonatate 100 mg oral capsule (20 sources)Non-narcotic AntitussiveStart: 06-28-2022 End: 08-81-9588inlc 1 capsule by mouth three times daily as neededbenzonatate (Tessalon) 100 MG capsule TAKE 1 CAPSULE BY MOUTH THREE TIMES DAILY NEEDED 06/28/2022 06/14/2025 Discontinued (Therapy completed)cephalexin 500 mg oral capsule (20 sources)Cephalosporin AntibacterialStart: 02-25-2023 End: 83-37-8504lqbk 1 capsule by mouth in the morningcephalexin (Keflex) 500 MG capsule Take 500 mg by mouth in the morning. 02/25/2023 06/14/2025 Discontinued (Therapy completed)Start: 07-21-2018 End: 44-36-7852rjht 1 capsule by mouth twice dailyCephalexin (Keflex) 500 mg capsule Discontinued 500 MG PO Twice daily 29 03July 21, 2018 1:00am July 27, 2018 1:00am July 28, 2018 1:02amciprofloxacin 500 mg oral tablet (20 sources)Quinolone AntimicrobialStart: 01-08-2023 End: 47-29-9754qmpx 1 tablet by mouth every twelve hoursciprofloxacin (Cipro) 500 MG tablet Take 500 mg by mouth every 12 (twelve) hours. 01/08/2023 025 Discontinued (Therapy completed)Start: 34-01-0698tzdm 1 tablet by mouth every twelve hoursCipro 500 MG 1 tablet Orally every 12 hrs for 5 days Dec, Not-TakingStart: 66-88-9258nhuh 1 tablet by mouth every twelve hours clotrimazole 10 mg oral lozenge (13 sources)Azole AntifungalStart: 01-08-2023 End: 07-61-7814wxzrozskypjx (Mycelex) 10 MG black TAKE 1 (ONE) black five times a day 01/08/2023 06/14/2025 Discontinued (Therapy completed)doxycycline hyclate 100 mg oral capsule (20 sources)Tetracycline-class DrugStart: 07-07-2021 End: 02-98-7206csfv 1 capsule by mouth twice dailyDoxycycline Hyclate 100 mg capsule Discontinued 100 MG PO Twice daily 05 07July 07, 2021 12:00am December 02, 2023 2:42pmestradiol 0.1 mg/ml vaginal cream (20 sources)EstrogenStart: 02-25-2023 End: 14-81-7183gamogfivq (Estrace) 0.1 MG/GM vaginal cream INSERT 1 (ONE) gram VAGINALLY twice a week 02/25/2023 06/14/2025 Discontinued (Therapy completed) Start: 13-59-0165Ulmfvln 0.1 MG/GM 1 gm Vaginal twice a week for 30 days Feb, ActiveStart: 67-87-2654Mgnew Glucose Scanning Wana (Freestyle Lambert 2 Wana) misc (5 sources)Start: 12-02-2023 End: 99-85-6456Suofz Glucose Scanning Wana (Freestyle Lambert 2 Wana) misc Discontinued 0 .Route 1 December 02, 2023 12:00am January 28, 2024 11:19am As directedStart: 69-71-2115Uvwzv Glucose Scanning Wana (Freestyle Lambert 2 Wana) misc Active 0 .Route 1 December 02, 2023 12:00am As directedFlash Glucose Sensor (Freestyle Lambert 2 Sensor) kit (5 sources)Start: 12-02-2023 End: 10-00-3523Ipjip Glucose Sensor (Freestyle Lambert 2 Sensor) kit Discontinued 0 .Route 1 December 02, 2023 12:00am January 28, 2024 11:19am As directedStart: 58-79-1488Fgewy Glucose Sensor (Freestyle Lamebrt 2 Sensor) kit Active 0 .Route 1 December 02, 2023 12:00am As directedfluticasone propionate 0.05 mg/actuat metered dose nasal spray (4 sources)CorticosteroidStart: 01-28-2024 End: 29-62-0108nyii 1 spray(s) nasal route once dailyFluticasone Propionate 50 mcg/actuation spray,suspension Discontinued 1 SPRAY INTRANASAL Daily 1 30May 2023 12:00am March 09, 2025 3:10pm administer into each nostrilfurosemide 40 mg oral tablet (20 sources)Loop DiureticStart: 05-26-2024 End: 04-64-5793dhuy 1 tablet by mouth once dailyFurosemide 40 mg tablet Discontinued 0 .ROUTE .COMPLEX 135 May 26, 2024 8:46am December 07, 2024 1:55pm TAKE 1 & 1/2 (ONE AND ONE-HALF) TABLETS BY MOUTH DAILYStart: 05-26-2024 End: 57-73-7335Vnyjrtjwgf 40 mg tablet Discontinued 60 MG PO Every morning May 26, 2024 12:00am May 26, 2024 8:46amStart: 05-26-2024 End: 88-90-2979dtlr 60 mg by mouth once daily in the morningFurosemide Discontinued 60 MG PO Every morning May 26, 2024 12:00am May 26, 2024 8:46amStart: 12-29-2020 End: 63-62-1789mnhlntmmik (Lasix) 40 MG tablet 12/20/2022 ActiveStart: 15-59-5012yolm 0.5 tablet by mouth every other dayFurosemide 40 MG 1/2 tablet Orally QOD Dec, Not-TakingFurosemide 40 MG 1.5 Orally Once a day for 90 days Activegabapentin 300 mg oral capsule (20 sources)Anti-epileptic AgentStart: 04-05-2018 End: 68-87-6739ybvm 2 capsules by mouth in the morninggabapentin (Neurontin) 300 MG capsule Take 600 mg by mouth in the morning. 01/22/2023 06/14/2025 Dis continued (Therapy completed)Start: 04-05-2018 End: 83-46-4354rehz 600 mg by mouth once dailyGabapentin Discontinued 600 MG PO Daily April 05, 2018 12:00am December 02, 2023 2:42pmKetorolac (20 sources)Nonsteroidal Anti-inflammatory Drug, Cyclooxygenase InhibitorStart: 44-06-3006Hzbqgyf per 15 mg Sep, 30 uLlevoFLOXacin 250 mg oral tablet (12 sources)Quinolone AntimicrobialStart: 04-07-2018 End: 49-45-1910cooc 1 tablet by mouth once daily for urinary tract infection Levofloxacin (Levaquin) 250 mg tablet Discontinued 250 MG PO Daily April 07, 2018 12:00am June 12, 2018 1:22pm take until finished for UTILORazepam 0.5 mg oral tablet (20 sources)BenzodiazepineStart: 09-02-2019 End: 11-82-5278Ngsoiviwq (Ativan) 0.5 mg Tablet Discontinued September 02, 2019 1:00am December 02, 2023 2:42pmStart: 09-02-2019 End: 86-70-5039Lmvtqdeqg (Ativan) 0.5 mg Tablet Discontinued TABLET September 02, 2019 1:00am December 02, 2023 2:42pmStart: 06-12-2018 End: 08-36-6200Zipppqbut (Ativan) 0.5 mg Tablet Discontinued 0.5 MG PO As Directed June 12, 2018 12:00am July 21, 2018 2:54pmStart: 04-05-2018 End: 59-68-8190zrau 1 tablet by mouth once dailyLorazepam 0.5 mg tablet Discontinued 0.5 MG PO Daily April 05, 2018 12:00am April 06, 2018 1:36am losartan potassium 25 mg oral tablet (20 sources)Angiotensin 2 Receptor BlockerStart: 08-28-2010 End: 59-77-6158jnkt 1 tablet by mouth once dailyLosartan 25 mg tablet Discontinued 25 MG PO Daily April 05, 2018 12:00am December 02, 2023 2:43pm metFORMIN hydrochloride 500 mg oral tablet (20 sources)BiguanideStart: 04-05-2018 End: 28-27-7494gtyw 1 tablet by mouth twice dailymetFORMIN (Glucophage) 500 MG tablet TAKE 1 TABLET BY MOUTH WITH A MEAL TWICE DAILY 01/17/2023 06/14/2025 Discontinued (Therapy completed)take 1 tablet by mouth every twenty-four hours metFORMIN HCl 500 MG 1 tablet with a meal Orally Once a day for 30 day(s) Active methocarbamol 500 mg oral tablet (14 sources)Muscle RelaxantStart: 01-01-2024 End: 25-25-9932jrla 1 tablet by mouth once daily at bedtimeMethocarbamol 500 mg tablet Discontinued 500 MG PO Daily at bedtime January 01, 2024 12:00am September 07, 2024 2:40pmtake 1 tablet by mouth every six hoursMethocarbamol 750 MG 1 tablet Orally every 6 hrs Not-Takingnaproxen sodium 550 mg oral tablet (20 sources)Nonsteroidal Anti-inflammatory DrugStart: 04-14-2019 End: 18-60-6446iznj 1 tablet by mouth twice dailyNaproxen Sodium (Anaprox Ds) 550 mg Tablet Discontinued 550 MG PO Twice daily April 14, 2019 12:00am December 02, 2023 2:43pmStart: 06-12-2018 End: 05-01-2357sjzk 1 tablet by mouth twice dailyNaproxen Sodium (Anaprox Ds) 550 mg Tablet Discontinued 550 MG PO Twice daily June 12, 2018 12:00am June 12, 2018 1:32pmomeprazole 20 mg delayed release oral capsule (20 sources)Proton Pump InhibitorStart: 01-03-2023 End: 89-64-2857khaybunqow (PriLOSEC) [address] capsule TAKE 1 CAPSULE BY MOUTH 30 MINUTES before morning meal 01/03/2023 06/14/2025 Discontinued (Therapy completed)Start: 04-05-2018 End: 11-42-6613ybuj 1 capsule by mouth twice dailyOmeprazole 20 mg capsule,delayed release(DR/EC) Discontinued 20 MG PO Twice daily April 05, 2018 12:00am January 28, 2024 11:15amoxybutynin chloride 5 mg oral tablet (20 sources)Cholinergic Muscarinic AntagonistStart: 04-05-2018 End: 23-93-2102ghdf 1 tablet by mouth in the morningoxybutynin (Ditropan) 5 MG tablet Take 5 mg by mouth in the morning. 01/22/2023 06/14/2025 Discontinued (Therapy completed)oxyCODONE hydrochloride 5 mg oral tablet (20 sources)Opioid AgonistStart: 09-29-2018 End: 86-14-5867fzcv 1 tablet by mouth once daily as needed for painOxycodone 5 mg tablet Discontinued 1 TAB PO Daily as needed for Pain September 29, 2018 1:00am December 02, 2023 2:43pmStart: 07-21-2018 End: 09-48-9659zblk 1 capsule by mouth every six hours as needed for pain Oxycodone 5 mg capsule Discontinued 5 MG PO Q6H as needed for pain 4 2 July 21, 2018 July 22, 2018 1:00am July 23, 2018 1:02ammicroencapsulated potassium chloride 20 meq extended release oral tablet (20 sources)Start: 03-05-2024 End: 70-44-9805Owupbmxjd Chloride (Klor-Con M20) 20 mEq tablet,ER particles/crystals Discontinued 20 MEQ PO Daily March 05, 2024 12:00am March 09, 2025 3:09pmStart: 45-56-8519tkdv 1 tablet by mouth every twenty-four hours Klor-Con M20 20 MEQ 1 tablet with food Orally Once a day for 30 days January, ActiveStart: 00-97-1538hltr 1 tablet by mouth once daily at mealtime potassium chloride CR (K-Tab) 20 MEQ ER tablet Take 20 mEq by mouth Daily Take with food. 12/20/2022 ActivepredniSONE 10 mg oral tablet (12 sources)Start: 01-28-2024 End: 04-59-8168Ewgbgkdjuu 10 mg tablet Discontinued 10 MG PO [...] (17 sources)Central alpha-2 Adrenergic AgonistStart: 04-14-2019 End: 54-84-3394Nzvvtxanvk 2 mg Tablet Discontinued April 14, 2019 12:00am December 02, 2023 2:43pmStart: 04-14-2019 End: 04-57-1581Xnkklnfivc 2 mg Tablet Discontinued TABLET April 14, 2019 12:00am December 02, 2023 2:43pmtraMADol hydrochloride 50 mg oral tablet (20 sources)Opioid AgonistStart: 01-01-2024 End: 16-95-5336ajml 1 tablet by mouth twice daily as needed for painTramadol 50 mg tablet Discontinued 50 MG PO Twice daily as needed for pain 14 September 0742:40pm December 07, 2024 1:09pmStart: 01-01-2024 End: 23-04-5357kvso 1 tablet by mouth every eight hours as neededTramadol 50 mg tablet Discontinued 50 MG PO Every 8 hours as needed January 01, 2024 12:00am January 01, 2024 11:09amStart: 04-07-2018 End: 57-27-7458joqv 0.5-1 tablets by mouth every six hours [...] tablet (12 sources)gamma-Aminobutyric Acid-ergic AgonistStart: 04-14-2019 End: 04-58-5365dihl 1 tablet by mouth once daily at bedtime as neededZolpidem (Ambien) 5 mg Tablet Discontinued 5 MG PO Daily at bedtime as needed for Insomnia April 14, 2019 12:00am December 02, 2023 2:43pm Problems Active Problems Problem ClassificationProblemDateDocumented DateEpisodic/ChronicAcquired foot deformities (20 sources)Hammer toe; Translations: [Other hammer toe(s) (acquired), right foot]Onset: 743509-08-9229JkcgrmkZisvntiuyz disorders (20 sources)Grief finding; Translations: [Adjustment disorder, unspecified] Onset: 01-08-2022 Resolved: 98-80-7490MakumqnQlbyoxme reactions (2 sources)Allergy status to other antibiotic agents status; Translations: [Allergy status to other drugs, medicaments and biological substances status] Onset: 38-62-3277BjmqiwafZllirha disorders (20 sources)Anxiety state; Translations: [Anxiety disorder, unspecified]Onset: 05-25-2021 Resolved: 53-76-6356IycmrhrCuszmni tract disease (12 sources)Acute cholecystitis; Translations: [Acute cholecystitis]04-05-2018 EpisodicCardiac dysrhythmias (2 sources)Atrial premature depolarization; Translations: [Atrial premature depolarization]Onset: 89-86-4296HqjnsqvCfpagla obstructive pulmonary disease and bronchiectasis (20 sources)Bronchiolectasis; Translations: [Bronchiectasis, uncomplicated] ChronicCongestive heart failure; nonhypertensive (5 sources)Congestive heart failure; Translations: [Heart failure, unspecified] Onset: 202043-82-1380EneaadfCtkfktnw mellitus with complications (20 sources)Type 2 diabetes mellitus with hyperglycemia; Translations: [Type 2 diabetes mellitus]Onset: 44-45-9776KymchzcHwnooong mellitus 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 (20 sources)Diabetes mellitus 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; Translations: [Type 2 diabetes mellitus 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s]Onset: 05-25-2021 Resolved: 18-64-7126KnxmteaJofncvyyk of lipid metabolism (20 sources)Pure hypercholesterolemia; Translations: [Pure hypercholesterolemia] ChronicEsophageal disorders (20 sources)Gastroesophageal reflux disease; Translations: [Gastro-esophageal reflux disease without esophagitis]Onset: 05-25-2021 Resolved: 80-61-1698HnedrybUegsmxecz hypertension (20 sources)Hypertensive disorder; Translations: [Essential (primary) hypertension]Onset: 05-25-2021 Resolved: 52-02-1061OrikxjvOntlx and electrolyte disorders (1 source)Dehydration; Translations: [DEHYDRATION]Onset: 54-73-0791Egjaplpf Headache; including migraine (20 sources)Muscular headache ; Translations: [Tension-type headache, unspecified, not intractable]ChronicHeart valve disorders (6 sources)Ejection murmur; Translations: [Cardiac murmur, unspecified] 35-62-6445FywhfohdBffbocgmjzkjz and screening for infectious disease (5 sources)Contact with and (suspected) exposure to other viral communicable diseases; Translations: [Encounter for immunization]Onset: 07-07-2021 Resolved: 42-08-7377HlsxmavcCnitkug and fatigue (8 sources)Weakness; Translations: [Other fatigue]Onset: 69-49-4366Gnexlbpf Nausea and vomiting (11 sources)Nausea; Translations: [Nausea]Onset: 05-25-2021 Resolved: 90-81-6848AtfbrmidIwwobakiz of unspecified nature or uncertain behavior (2 sources)Neoplastic disease; Translations: [Neoplasm of unspecified behavior of bone, soft tissue, and skin]16-73-8487SiicwulnZcrucpgldtwwgq (20 sources)Osteoarthritis; Translations: [Unspecified osteoarthritis, unspecified site]ChronicOther acquired deformities (6 sources)Equinus contracture of the ankle; Translations: [Contracture, left ankle]94-10-9482CfwilwaVtcok acquired deformities (6 sources)Equinus contracture of the ankle; Translations: [Contracture, right ankle]96-21-1105PldsepqBwdyd aftercare (2 sources)Encounter for follow-up examination after completed treatment for conditions other than malignant neoplasmOnset: 01-08-2022 Resolved: 56-92-7000XfqmkugoJkicd aftercare (1 source)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; Translations: [OTH SHELTER CURRENT DRUG THERAPY]Onset: 07-23-8056VqhdmytjBtyam aftercare (1 source)buttermaker (current) use of oral hypoglycemic drugs; Translations: [SHELTER USE ORAL HYPOGLYCEMIC DX]Onset: 03-55-2042FekmqfesBcexa and ill- defined heart disease (20 sources)Cardiomegaly; Translations: [Cardiomegaly]ChronicOther and ill- defined heart disease (2 sources)Cardiomegaly; Translations: [Cardiomegaly]Onset: 35-47-6935Sdehjae Other diseases of bladder and urethra (20 sources)Overactive bladder; Translations: [Overactive bladder]ChronicOther diseases of bladder and urethra (1 source)Overactive bladderOnset: 11-30-2021 Resolved: 73-71-2619KooymosGnqoj diseases of veins and lymphatics (13 sources)Lymphedema; Translations: [Lymphedema, not elsewhere classified] 49-81-2118CrlhfgrXshoo disorders of stomach and duodenum (10 sources)Indigestion; Translations: [Functional dyspepsia]EpisodicOther disorders of stomach and duodenum (2 sources)Functional dyspepsiaEpisodicOther endocrine disorders (20 sources)Hypoglycemia; Translations: [Hypoglycemia, unspecified]ChronicOther endocrine disorders (1 source)Hypoglycemia, unspecifiedOnset: 11-30-2021 Resolved: 01-77-2780GumqjwwLvvzv hereditary and degenerative nervous system conditions (20 sources)Restless legs; Translations: [Restless legs syndrome]12-02-2023 ChronicOther hereditary and degenerative nervous system conditions (9 sources)Restless legs syndrome; Translations: [Restless legs syndrome (RLS)] Onset: 86-22-7919RyhxptpCjnfy lower respiratory disease (20 sources)Interstitial lung disease; Translations: [Interstitial pulmonary disease, unspecified]52-39-2033RtrgamgFgzfu lower respiratory disease (13 sources)Interstitial pulmonary disease, unspecified; Translations: [Postinflammatory pulmonary fibrosis]ChronicOther lower respiratory disease (20 sources)Cough; Translations: [Cough]EpisodicOther lower respiratory disease (5 sources)Posterior rhinorrhea; Translations: [Upper airway cough syndrome] 67-09-2893BayvgkcpNtoef lower respiratory disease (5 sources)Chronic cough; Translations: [Chronic cough]92-23-1524YkgqqmctNpqyg lower respiratory disease (4 sources)Pneumonitis; Translations: [Other disorders of lung]01-21-2024 EpisodicOther lower respiratory disease (1 source)Other disorders of lung; Translations: [Pneumonia, organism unspecified]62-62-3099FolzeowwWdspx nervous system disorders (20 sources)Chronic pain; Translations: [Other chronic pain]ChronicOther nervous system disorders (1 source)Other chronic painChronicOther nervous system disorders (1 source)Difficulty in walking, not elsewhere classified; Translations: [DIFFICULTY IN WALKING NEC]Onset: 52-50-7609YlecghtWdcwj nervous system disorders (2 sources)Tremor, unspecifiedOnset: 01-08-2022 Resolved: 70-26-5054WuwkcovtUdlkn nervous system disorders (5 sources)Impairment of balance; Translations: [Other abnormalities of gait and mobility]84-67-5036JjljrlvnIdjxm nervous system disorders (1 source)Other abnormalities of gait and mobility; Translations: [Other symptoms involving nervous and musculoskeletal systems]51-89-4646CylbbpugPkjme non-traumatic joint disorders (20 sources)Arthralgia of the lower leg; Translations: [Pain in right knee] EpisodicOther nutritional; endocrine; and metabolic disorders (1 source)Obesity, unspecified; Translations: [OBESITY UNSPECIFIED]Onset: 49-39-8168VnuuhbeZeagj nutritional; endocrine; and metabolic disorders (1 source)Body mass index (BMI) 32.0-32.9, adult; Translations: [BODY MASS INDEX BMI 32.0-32.9 ADULT]Onset: 03-27-7904ZlsqdioJxjzy nutritional; endocrine; and metabolic disorders (1 source)Other disorders of bilirubin metabolism; Translations: [OTH DISORDERS BILIRUBIN METABOLISM]Onset: 62-74-3743IztmilqMepms nutritional; endocrine; and metabolic disorders (2 sources)Morbid obesity; Translations: [Morbid (severe) obesity due to excess calories]40-51-7165MwzthvlSvkyd nutritional; endocrine; and metabolic disorders (3 sources)Morbid (severe) obesity due to excess calories; Translations: [Morbid obesity]Onset: 798642-17-6580XutjsdrIfhud screening for suspected conditions (not mental disorders or infectious disease) (3 sources)Other specified abnormal findings of blood chemistry; Translations: [Abnormal electrocardiogram [ECG] [EKG]]Onset: 38-47-7333YynzmwzrRxlop skin disorders (2 sources)Seborrheic keratosis; Translations: [Other seborrheic keratosis] 57-50-2672DylokvusQqtko skin disorders (2 sources)Inflamed seborrheic keratosis; Translations: [Inflamed seborrheic keratosis]00-18-1301LptsubwcVlchh upper respiratory disease (20 sources)Seasonal allergy; Translations: [Other seasonal allergic rhinitis] ChronicPeri-; endo-; and myocarditis; cardiomyopathy (except that caused by tuberculosis or sexually transmitted disease) (20 sources)Cardiomyopathy; Translations: [Cardiomyopathy, unspecified]Chronic Pneumonia (except that caused by tuberculosis or sexually transmitted disease) (20 sources)Pneumonia; Translations: [Pneumonia, unspecified organism]Onset: 129942-47-6319DlsuwbgnTituwsgu codes; unclassified (20 sources)Sleep apnea; Translations: [Sleep apnea, unspecified]ChronicResidual codes; unclassified (20 sources)Obstructive sleep apnea syndrome; Translations: [Obstructive sleep apnea (adult) (pediatric)]67-32-1640BvgpnklAsljqogz codes; unclassified (2 sources)Obstructive sleep apnea (adult) (pediatric); Translations: [OBSTRUCTIVE SLEEP APNEA]Onset: 08-01-2021 Resolved: 83-99-7377ZxrpjlrBwgqnwiq codes; unclassified (1 source)Sleep apnea, unspecified; Translations: [SLEEP APNEA UNSPECIFIED] Onset: 27-08-5949AgqippeXjqkhjpe codes; unclassified (1 source)Obstructive sleep apnea (adult)(pediatric); Translations: [Obstructive sleep apnea (adult) (pediatric)]Onset: 74-85-4601LfsrcxnKwrowjzn codes; unclassified (1 source)Chills (without fever)EpisodicResidual codes; [...] COVID-19; Translations: [CONTACT W/AND (SUSP) EXPOS COVID-19]Onset: 38-17-6379Ckpsaooksczq (1 source)ELEV LVLS LIVER TRANSAMINASE LVLS; Translations: [ELEV LVLS LIVER TRANSAMINASE LVLS]Onset: 95-80-9749Zcvjyxtxeyqk (1 source)Interstitial pulmonary disease, unspecified; Translations: [Interstitial pulmonary disease, unspecified]Onset: 61-14-3424Nnnqvvbfylbo (1 source)Nontoxic goiter, unspecified; Translations: [Nontoxic goiter, unspecified]Onset: 89-21-3853Wjrzkfovpljn (1 source)Cough, unspecified; Translations: [Cough, unspecified]Onset: 61-61-3474Febkzdjsbhyd (1 source)Cough, unspecified; Translations: [Cough, unspecified]Onset: 84-59-9581Hflaobr tract infections (10 sources)Urinary tract infection, site not specified; Translations: [UTI SITE NOT SPECIFIED]Onset: 01-08-2022 Resolved: 47-29-3892Aamxhily Past or Other Problems Problem ClassificationProblemDateDocumented DateEpisodic/ChronicBacterial infection; unspecified site (1 source)Unspecified Escherichia coli [E. coli] as the cause of diseases classified elsewhere; Translations:[UNS E COLI CAUSE DX CLASS ELSEWHERE]Onset: 52-81-5287DeblrvedBqyeakaa mellitus 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 (5 sources)Impaired fasting glycemia; Translations: [Impaired fasting glucose] EpisodicE Codes: Fall (1 source)Unspecified fall, initial encounter; Translations: [UNSPECIFIED FALL INITIAL ENCOUNTER]Onset: 93-56-2323BfnvxedrOtrdd of unknown origin (1 source)Fever, unspecified; Translations: [Fever, unspecified fever cause R50.9]Onset: 07-07-2021 Resolved: 28-84-7503KrvmkyysQjbvsnqqp and duodenitis (5 sources)Viral gastritis; Translations: [Gastritis, unspecified, without bleeding]EpisodicGenitourinary symptoms and ill-defined conditions (5 sources)Other symptoms and signs involving the genitourinary system; Translations: [Personal history of urinary (tract) infections]Onset: 05-25-2021 Resolved: 28-28-6518XvsoitnoJdezxfjqk (1 source)Influenza due to other identified influenza virus with other respiratory manifestations; Translations: [FLU D/T OTH ID FLU VIR OTH RSP MANF] Onset: 20-58-9499EalrlyceFmbsdvx (20 sources)Candidal stomatitis; Translations: [Candidiasis of skin and nail] Onset: 34-09-2905UpmkdoffMrbrb connective tissue disease (20 sources)Pain in both feet; Translations: [Pain in right foot]Onset: 005989-06-5881NsvpcxdvRnkqk diseases of veins and lymphatics (1 source)Vascular insufficiency; Translations: [Venous insufficiency (chronic) (peripheral)]80-95-8789EzkmxyysOfphp lower respiratory disease (1 source)Shortness of breathOnset: 05-24-2022 Resolved: 50-69-7829HsbyxbksFugst lower respiratory disease (1 source)Personal history of pneumonia (recurrent); Translations: [PERSONAL HX OF PNEUMONIA RECURRENT]Onset: 04-26-7964PsxyevneFntip non-traumatic joint disorders (1 source)Effusion, unspecified ankleOnset: 08-03-2021 Resolved: 40-99-2964OvkfkbsuDtprh nutritional; endocrine; and metabolic disorders (1 source)OverweightOnset: 08-28-2021 Resolved: 70-20-0396OudemuepZuahuhmf codes; unclassified (4 sources)Localized edema; Translations: [Localized edema]Onset: 05-25-2021 Resolved: 43-99-7157CrelvovjIcmghyzb codes; unclassified (3 sources)Edema, unspecified; Translations: [Edema, unspecified]Onset: 10-18-0103ClyffemuAscpkqwo codes; unclassified (1 source)Disorientation, unspecified; Translations: [DISORIENTATION UNSPECIFIED]Onset: 18-95-4313LiuhgoplZaelkhesxfj injury; contusion (1 source)Contusion of scalp, initial encounter; Translations: [CONTUSION SCALP INITIAL ENCOUNTER]Onset: 29-25-6764GkohvbbbAevjxlgiscfw (9 sources)Cough R05.9Onset: 08-03-2021 Resolved: 05-31-2022 Results Test NameValueInterpretationReference RangeFacilityB-TYPE NATRIURETIC PEPTIDEon 25-22-8344Xlesfdnsurm peptide B (Bld) [Mass/Vol]44 pg/mLNormal0-100UnBellevue HospitalComment on above:Performed By: #### [id number] #### [facility] ([facility]) [address] [place], [place] [address]BSZ WITH AUTO DIFFERENTIALon 17-87-5200Mlqnqzyed (Bld) [#/Vol] 0.09 10*3/uLNormal0.00-0.20UnBellevue HospitalComment on above: Performed By: #### [id number] #### [facility] ([facility]) [address] [place], [place] [address]Qwfobywlq/100 WBC (Bld)1.5 %High0.0-1.0UnBellevue HospitalComment on above:Performed By: #### [id number] #### [facility] [address] [place], [place] [address]Vvnkfjxzlyi (Bld) [#/Vol]0.26 10*3/uLNormal0.00-0.50UnBellevue HospitalComment on above:Performed By: #### [id number] #### [facility] ([facility]) [address] [place], [place] [address]Ebscnwvshau/100 WBC (Bld)4.3 %Normal0.0-6.0UnBellevue HospitalComment on above:Performed By: #### [id number] #### [facility] ([facility]) [address] [place] [place], [place] [address]Deilvfxyami distribution width (RBC) [Ratio]13.9 %Normal 11.5-15.0UnBellevue HospitalComment on above:Performed By: #### [id number] #### [facility] ([facility]) [address] [place], [place] [address]SKEPOHVIMWJ MEAN CORPUSCULAR HEMOGLOBIN CONCENTRATION (G/DL) BY QBIQPKGTP11.0 g/aZDnmizp27.0-35.0UnBellevue HospitalComment on above:Performed By: #### [id number] #### [facility] ([facility]) [address] [place], [place] [address]Qgorqqelab (Bld) [Volume fraction]43.3 %Jzlypj05.0-45.0 [facility] CenterComment on above:Performed By: #### [id number] #### [facility] ([facility]) [address] [place], [place] [address]Rbkvnkpotm (Bld) [Mass/Vol]14.3 g/vZUunuhq24.0-15.0UnBellevue HospitalComment on above:Performed By: #### [id number] #### [facility] ([facility]) [address] [place] [place], [place] [address]Kiaevqha granulocytes (Bld) [#/Vol]0.06 10*3/uLNormal0.00-0.20 [facility] Medical CenterComment on above:Performed By: #### [id number] #### [facility] ([facility]) [address] [facility]MENTMarilou [place], [place] [address]Rorllvxf granulocytes/100 WBC (Bld)1.0 %Normal0.0-1.0UnBellevue HospitalComment on above:Performed By: #### [id number] #### [facility] ([facility] [address] [place], [place] [address]Pdurhkpsfjd (Bld) [#/Vol]1.62 10*3/uLNormal1.20-4.00UnBellevue HospitalComment on above:Performed By: #### [id number] #### [facility] ([facility]) [address] [facility]ENTER[facility] [place], [place] [address]Lcpyeawogpu/100 WBC (Bld)26.7 %Annogq82.0-45.0UnBellevue HospitalComment on above:Performed By: #### [id number] #### [facility] ([facility]) [address] [place], [place] [address]THR (RBC) [Entitic mass]32.1 zoYynfmr68.0-33.0UnBellevue HospitalComment on above:Performed By: #### [id number] #### [facility] ([facility]) [address] [place], [place] [address]QNA (RBC) [Entitic vol]97.1 kUErlolb80.0-98.0UnBellevue HospitalComment on above:Performed By: #### [id number] #### [facility] ([facility]) [address] [place], [place] [address]Ojctesave (Bld) [#/Vol]0.70 10*3/uLNormal0.10-1.00UnBellevue HospitalComment on above:Performed By: #### [id number] #### [facility] ([facility]) [address] [place], [place] [address]Dubbwsdrp/100 WBC (Bld)11.5 %Normal5.0-12.0UnBellevue HospitalComment on above:Performed By: #### [id number] #### [facility] ([facility]) [address] [place], [place] [address]Qwcszvuszae (Bld) [#/Vol]3.34 10*3/uLNormal1.60-7.60UnBellevue HospitalComment on above:Performed By: #### [id number] #### [facility] ([facility]) [address] [place], [place] [address]Xqanoritxpn/100 WBC (Bld)55.0 %Auppfh82.0-72.0UnBellevue HospitalComment on above:Performed By: #### [id number] #### [facility] ([facility]) [address] [place] [address]XOZH (PER 100 WBCS) BY AUTOMATED COUNT0.0 %Dcnajx6ItirlufbxqBellevue HospitalComment on above:Performed By: #### [id number] #### [facility] ([facility]) [address] [place] [address]WBNEFFAQA (10*3/UL) IN BLOOD AUTOMATED PMPXJ140 10*3/uLNormal 150-400UnBellevue HospitalComment on above:Performed By: #### [id number] #### [facility] ([facility]) [address] [place], [place] [address]BWE (Bld) [#/Vol]4.46 10*6/uLNormal3.80-5.00UnBellevue HospitalComment on above:Performed By: #### [id number] #### [facility] ([facility]) [address] [place], [place] [address]ENV (Bld) [#/Vol]6.07 10*3/uLNormal4.00-10.60UnBellevue HospitalComment on above:Performed By: #### [id number] #### [facility] ([facility]) [address] [place], [place] [address]PZEPYFFAAHDQY METABOLIC PANELon 90-65-3680Cugmhot [Mass/Vol]3.1 g/dLLow3.5-5.7UnBellevue HospitalComment on above:Performed By: #### [id number] #### [facility] ([facility]) [address] [place], [place] [address]YQD [Catalytic activity/Vol]86 U/LUuzplz09-267RrqifiqydiBellevue HospitalComment on above:Performed By: #### [id number] #### [facility] ([facility]) [address] [place], [place] [address]LED [Catalytic activity/Vol]12 U/LNormal7-52UnBellevue HospitalComment on above:Performed By: #### [id number] #### [facility] ([facility]) [address] [place], [place] [address]Lxgpe gap [Moles/Vol]7 mmol/LNormal7-20UnBellevue HospitalComment on above:Performed By: #### [id number] #### [facility] ([facility]) [address] [place], [place] [address]ZCT [Catalytic activity/Vol]21 U/TXyneox61-55GkllmitvseBellevue HospitalComment on above:Performed By: #### [id number] #### [facility] ([facility]) [address] [place], [place] [address]Zgyyjcskr [Mass/Vol]1.7 mg/dLHigh0.3-1.0UnBellevue HospitalComment on above:Performed By: #### [id number] #### [facility] ([facility]) [address] [place], [place] [address]Bhfkgxa [Mass/Vol]8.8 mg/dLNormal8.6-10.3UnBellevue HospitalComment on above:Performed By: #### [id number] #### [facility] ([facility]) [address] [place], [place] [address]Etumghzr [Moles/Vol]107 mmol/MNaebzo49-162YetybtqtbhBellevue HospitalComment on above:Performed By: #### [id number] #### [facility] ([facility]) [address] [place], [place] [address]AV0 [Moles/Vol]30 mmol/EIuthcq74-41UyokhatwhnBellevue HospitalComment on above:Performed By: #### [id number] #### [facility] ([facility]) [address] [place], [place] [address]Bcpnwpypgw [Mass/Vol]0.76 mg/dLNormal0.60-1.20UnBellevue HospitalComment on above:Performed By: #### [id number] #### [facility] ([facility]) [address] [place] [address]YYACHDHFIH FILTRATION RATE ML/MIN/1.73 SQ M.PCBGWUMNV46.3 mL/min/1.73m*2Normal>60.0UnBellevue HospitalComment on above: Result Comment: [facility]???s estimated glomerular filtration rate (eGFR) will no [...] group of individuals.Performed By: #### [id number] #### [facility] ([facility]) [address] [place] [address]Vhptchu [Mass/Vol]87 mg/kMYlkgfe78-164FassvejzbeBellevue HospitalComment on above:Performed By: #### [id number] #### [facility] ([facility]) [address] [place] [address]Moabrtxer [Moles/Vol]4.4 mmol/LNormal3.5-5.1UnBellevue HospitalComment on above:Performed By: #### [id number] #### [facility] ([facility]) [address] [place] [address]Ivwihgh [Mass/Vol]6.7 g/dLNormal6.0-8.3UnBellevue HospitalComment on above:Performed By: #### [id number] #### [facility] ([facility]) [address] [place] [address]Gmsdif [Moles/Vol]140 mmol/SYkecko150-223BqcghvfzlgBellevue HospitalComment on above:Performed By: #### [id number] #### [facility] ([facility]) [address] [place], [place] [address]Aoki nitrogen [Mass/Vol]20 mg/dLNormal7-25UnBellevue HospitalComment on above:Performed By: #### [id number] #### [facility] ([facility]) [address] [place], [place] [address]CGWQ NITROGEN/CREATININE (MASS RATIO) IN SER/PLAS26.3Normal [facility] Medical CenterComment on above:Performed By: #### [id number] #### [facility] ([facility]) [address] [place] [address]KUjq [id number] Attestation signed by Shruthi Ortega MD at [...] there are no changes to the H&P. NormalUnBellevue HospitalLabon [id number] Salma Quan 1935 F Date Provider Department Center 07/09/2025 2245-[facility] RESOURCE [facility] [place] [facility] Family History Problem Relation Age of Onset Emphysema Mother Cancer Father Family Status - Relation Status Age at Mother Father Brother DeceasedNormalUniMercy Health Fairfield HospitalNURSNOTEon 07-09-2025 NURSNOTERN educated pt on d/c [...] wheeled off of unit with all of belongings.[facility] CenterHPon 46-20-2713MVSpszyxatsh Patient ID: Salma Quan is a 89 [...] in L leg . Had been in [facility] with UTI and developed edema in legs [...] Follow up in about 6 weeks (around 08/18/2025).NormalUnBellevue HospitalOffice Visiton 88-07-2941Eokhag-up [id number] Salma Quan 1935 F Date Provider Department Center 07/07/2025 245-[facility] C[facility] [place] [facility] Family History Problem Relation Age of Onset Emphysema Mother Cancer Father Family Status - Relation Status Age at Mother Father Brother Level of Service:20553 PA OFFICE/OUTPATIENT NEW HIGH MDM 60 MINUTES Reason for Visit and Comments: New Patient [632] - Patient is here today to as a new patient to establish care with cardiology. Patient had a recent abnormal EKG Hypertension [610839] Congestive Heart Failure [127] Heart Murmur [124] - Systolic ejection murmur Edema [[id number]] - Bilateral lymphedemaNormalUniversThe Christ HospitalNo Panel Informationon 68-55-2847OGFYSSM DePaul Health CenterType of biopsy: tangential Informed consent: discussed [...] taken yes Amount of lidocaine used: 1.0 Community HealthAutomated epithelial cells count in urine sediment (number/area)on 06-84-6927Eckzsopctx cells Auto (Urine sed) [#/Area]MODERATE #/LPFNONE/RAREBerger HospitalAutomated leukocytes count in urine sediment (number/area)on 12-25-2023 WBC Auto (Urine sed) [#/Area]20-50 #/HPF0-2FKeenan Private Hospital Automated urine specific gravity by refractometryon 81-85-0857Qvojalkj gravity Refractometry automated (U) [Rel density]1.0201.005-1.025Berger HospitalBilirubin Auto test strip (U) [Mass/Vol]on 66-11-2082Rbmrmfohk (U) [Mass/Vol]NegativeNEGATIVEBerger HospitalCast typing in urine sediment by light microscopyon 73-59-5260Wkcdm LM Nom (Urine sed)NONE SEEN #/LPFNONE SEENBerger HospitalColor Auto (U)on 90-10-6248Yrwde (U)YELLOWYELLOWBerger HospitalKetones Auto test strip (U) [Mass/Vol]on 97-79-7911Tsqazog (U) [Mass/Vol]NegativeNEGATIVEBerger HospitalMucus LM Ql (Urine sed)on 30-95-2594Hjsib Ql (Urine sed)NONE SEEN NONE [facility] HospitalProtein Auto test strip (U) [Mass/Vol] on 51-07-8007Usturtj (U) [Mass/Vol]NegativeNEG/TRACESelect Medical Specialty Hospital - Cantonpecific gravity Auto test strip (U) [Rel density]on 49-83-1456Ilhzxioq gravity (U) [Rel density]CLEARCLEARFKeenan Private HospitalUrine bacteria detection by automated methodon 73-25-9404Ehtruloz Auto Ql (U)TRACE #/HPFNONE [facility] HospitalUrine glucose measurement by test strip (mass/volume)on 08-61-3047Pvhbeab Test strip (U) [Mass/Vol]Negative NEGATIVEBerger HospitalUrine hemoglobin detection by automated test stripon 75-21-4133Uhhzcqdnkn Auto test strip Ql (U)MODERATENEGClermont County HospitalUrine nitrite detection by automated test strip on 26-55-9955Lykbzil Auto test strip Ql (U)NegativeNEGSelect Medical OhioHealth Rehabilitation Hospital - DublinUrine sediment crystal identification by light microscopyon 47-53-7388Amftaowu LM Nom (Urine sed)None Seen #/HPFNone [facility] Medical CenterUrine sediment leukocyte count by microscopy (number/high power field)on 18-71-2831OXL LM.HPF (Urine sed) [#/Area]2-5 #/HPFNONE [facility] Memorial HospitalUrobilinogen Auto test strip (U) [Mass/Vol]on 12-25-2023 Urobilinogen Qn (U)1.0 {Narinder'U}/dL0.2-1.0Berger HospitalpH Auto test strip (U)on 61-51-7429eJ (U)6.5 [pH]5.0-9.0Berger HospitalCBC AUTO DIFFon 77-18-3049XOSR #0.1 103/ulNormal0.0-0.1The Parkwood HospitalComment on above:Performed By: #### [id number] #### [facility] [address] [place] [address] Dr. Yilan ChangBasophils/100 WBC (Bld)1.1 %Normal0.2-2.0[facility] Comment on above:Performed By: #### [id number] #### [facility] [address] [place] [address] Dr. Eliecer Farias #0.2 103/ulNormal0.0-0.7The Parkwood HospitalComment on above: Performed By: #### [id number] #### [facility] [address] [place] [address] Dr. Eliecer Salasosinophils/100 WBC (Bld)3.6 %Normal0.9-7.0The [facility] Comment on above:Performed By: #### [id number] #### [facility] [address] [place] [address] Dr. Eliecer Salasrythrocyte distribution width (RBC) [Ratio]18.3 %Critically high 11.0-15.0The Parkwood HospitalComment on above:Performed By: #### [id number] #### [facility] [address] [place] [address] Dr. Eliecer DasHematocrit (Bld) [Volume fraction]34.9 %Critically low36.0-48.0 The Parkwood HospitalComment on above:Performed By: #### [id number] #### [facility] [address] [place] [address] Dr. Eliecer DasHemoglobin (Bld) [Mass/Vol]12.4 g/fZIlsrpt40.0-16.0The [facility] HospitalComment on above:Performed By: #### [id number] #### [facility] [address] [place] [address] Dr. Eliecer Swanson #0.08 10e3/ulCritically high0.00-0.03The [facility] Comment on above:Performed By: #### [id number] #### [facility] [address] [place] [address] Dr. Eliecer Swanson %1.2 %Critically high0.0-0.5The [facility]wood HospitalComment on above:Performed By: #### [email or web address] #### [facility] [address] [address] [address] Eliecer Mccann #1.9 103/ulNormal1.2-3.8The Parkwood HospitalComment on above:Performed By: #### [email or web address] #### [facility] [address] [place] [address] Dr. Eliecer Hardinghocytes/100 WBC (Bld)29.5 %Jhfggl37.5-60.0The [facility] HospitalComment on above:Performed By: #### [email or web address] #### [facility] [address] [place] [address] Dr. Eliecer Benson DIFF REQNONormalThe Parkwood HospitalComment on above: Performed By: #### [email or web address] #### [facility] [address] [place] [address] Dr. Eliecer Rodriguez (RBC) [Entitic mass]36.5 pgCritically high26.7-34.0The [facility]wood HospitalComment on above:Performed By: #### [email or web address] #### [facility] [address] [place] [address] Dr. Eliecer Leonardo (RBC) [Mass/Vol]35.5 g/dLCritically high29.9-35.2The [facility] HospitalComment on above:Performed By: #### [email or web address] #### [facility] [address] [place] [address] Dr. Eliecer Leonardo (RBC) [Entitic vol]102.6 fLCritically high81.0-99.0The [facility]wood HospitalComment on above:Performed By: #### [email or web address] #### [facility] [address] [place] [address] Dr. Eliecer Salas #0.8 103/ulNormal0.3-0.8The [facility]wood HospitalComment on above:Performed By: #### [email or web address] #### [facility] [address] [place] [address] Dr. Eliecer Stuartocytes/100 WBC (Bld)12.1 %Critically high1.7-12.0The [facility]wood HospitalComment on above:Performed By: #### [email or web address] #### [facility] [address] [place] [address] Dr. Eliecer [place] #3.4 103/ulNormal1.4-6.5The [facility] HospitalComment on above:Performed By: #### [email or web address] #### [facility] [address] [place] [address] Dr. Eliecer Mckeonutrophils/100 WBC (Bld)52.5 %Ayvvqw90.0-75.0The [facility] HospitalComment on above:Performed By: #### [email or web address] #### [facility] [address] [place] [address] Dr. Eliecer Mcdaniel mean volume (Bld) [Entitic vol]9.6 fLNormal9.5-13.5The [facility] HospitalComment on above:Performed By: #### [email or web address] #### [facility] [address] [place] [address] Dr. Eliecer GonsalesT236 103/exTelpsh179-112Rir Parkwood HospitalComment on above: Performed By: #### [email or web address] #### [facility] [address] [place] [address] Dr. Eliecer DasRBC3.40 106/ulCritically low4.20-5.40The Parkwood HospitalComment on above:Performed By: #### [email or web address] #### [facility] [address] [place] [address] Dr. Eliecer DasWBC6.4 103/ulNormal4.0-11.0The [facility] HospitalComment on above: Performed By: #### [email or web address] #### [facility] [address] [place] [address] Dr. Eliecer DasMONTAUK OF [facility] GLUCOSEon 35-23-5699Jnqeflo [Mass/Vol]185 mg/dL Critically pztn74-732Hhm [facility] HospitalComment on above:Performed By: #### POCGLUC #### [facility] [address] [place], [place] [id number] Dr. Eliecer SolanoF 14(COMP METB)on 70-35-4431Knjzyyr [Mass/Vol]2.1 g/dL Critically low3.4-5.0The [facility] Hospitalment on above:Performed By: #### [email or web address] #### [facility] [address] [place] [address] Dr. Eliecer DasAlbumin/Globulin [Mass ratio]0.5 {ratio}NormalThe [facility] HospitalComment on above:Performed By: #### [email or web address] #### [facility] [address] [place] [address] Dr. Eliecer Mallory [Catalytic activity/Vol]75 U/JQteybv13-466Zlk [facility] HospitalComment on above:Performed By: #### [email or web address] #### [facility] [address] [place] [address] Dr. Eliecer AndrewsT [Catalytic activity/Vol]27 U/KTpingd53-71Kqr [facility] HospitalComment on above:Performed By: #### [email or web address] #### [facility] [address] [place] [address] Dr. Eliecer Elias gap [Moles/Vol]9.6 mmol/LNormalThe [facility] HospitalComment on above:Performed By: #### [email or web address] #### [facility] [address] [place] [address] Dr. Eliecer DasAST [Catalytic activity/Vol]38 U/LCritically ginf12-31Szr [facility] HospitalComment on above:Performed By: #### [email or web address] #### [facility] [address] [place] [address] Dr. Eliecer DasBilirubin [Mass/Vol]1.0 mg/dLNormal0.2-1.0The [facility] Comment on above:Performed By: #### [email or web address] #### [facility] [address] [place] [address] Dr. Eliecer DasCalcium [Mass/Vol]9.0 mg/dLNormal8.5-10.1The [facility] Comment on above:Performed By: #### BLDCX1 #### [facility] [address] [address] [address] Eliecer DasChloride [Moles/Vol]104 mmol/ARncxmh55-793Ntt [facility] Comment on above:Performed By: #### BLDCX1 #### [facility] [address] [address] [address] Eliecer DasCO2 [Moles/Vol]28.9 mmol/AFundju16.0-32.0The [facility] Comment on above:Performed By: #### BLDCX1 #### [facility] [address] [address] [address] Eliecer DasCreatinine [Mass/Vol]0.85 mg/dLNormal0.55-1.02The [facility] HospitalComment on above:Performed By: #### BLDCX1 #### [facility] [address] [place] [address] Dr. Eliecer SalasGFR-AF MICRONESIAN>60Normal>=60The [facility] HospitalComment on above:Performed By: #### BLDCX1 #### [facility] [address] [address] [address] Eliecer SalasGFR-NON AF MICRONESIAN>60Normal>=60The [facility] HospitalComment on above:Performed By: #### [email or web address] #### [facility] [address] [place] [address] Dr. Eliecer DasGlobulin (S) [Mass/Vol]3.9 g/dLNormalThe [facility] HospitalComment on above:Performed By: #### BLDCX1 #### [facility] [address] [address] [address] Eliecer DasGlucose [Mass/Vol]132 mg/dLCritically htpr67-518Paj [facility] HospitalComment on above:Performed By: #### BLDCX1 #### [facility] [address] [place] [address] Dr. Eliecer DasPotassium [Moles/Vol]4.5 mmol/LNormal3.5-5.1The [facility] Comment on above:Performed By: #### BLDCX1 #### [facility] [address] [place] [address] Dr. Eliecer DasProtein [Mass/Vol]6.0 g/dLCritically low6.4-8.2The [facility] HospitalComment on above:Performed By: #### BLDCX1 #### [facility] [address] [place] [address] Dr. Eliecer Costadium [Moles/Vol]138 mmol/WDdzkzo103-727Swx [facility] Comment on above:Performed By: #### BLDCX1 #### [facility] [address] [place] [address] Dr. Eliecer DasUrea nitrogen [Mass/Vol]14.0 mg/dLNormal7.0-18.0The [facility] HospitalComment on above:Performed By: #### BLDCX1 #### [facility] [address] [place] [address] Dr. Eliecer DasUrea nitrogen/Creatinine [Mass ratio]16.5 mg/mgNormalThe [facility] HospitalComment on above:Performed By: #### BLDCX1 #### [facility] [address] [place] [address] Dr. Eliecer De La Vega AUTO DIFFon [id number] #0.1 103/ulNormal0.0-0.1The [facility] HospitalComment on above:Performed By: #### BLDCX1 #### [facility] [address] [place] [address] Dr. Eliecer DasBasophils/100 WBC (Bld)1.4 %Normal0.2-2.0The [facility] Comment on above:Performed By: #### BLDCX1 #### [facility] [address] [place] [address] Dr. Eliecer Farias #0.3 103/ulNormal0.0-0.7The [facility] HospitalComment on above: Performed By: #### BLDCX1 #### [facility] [address] [place] [address] Dr. Eliecer Salasosinophils/100 WBC (Bld)4.0 %Normal0.9-7.0[facility] Comment on above:Performed By: #### BLDCX1 #### [facility] [address] [place] [address] Dr. Eliecer Salasrythrocyte distribution width (RBC) [Ratio]19.6 %Critically high 11.0-15.0The [facility] HospitalComment on above:Performed By: #### [email or web address] #### [facility] [address] [place] [address] Dr. Eliecer DasHematocrit (Bld) [Volume fraction]34.4 %Critically low36.0-48.0 The [facility] HospitalComment on above:Performed By: #### BLDCX1 #### [facility] [address] [place] [address] Dr. Eliecer DasHemoglobin (Bld) [Mass/Vol]12.6 g/bBNotakd38.0-16.0The [facility] HospitalComment on above:Performed By: #### BLDCX1 #### [facility] [address] [place] [address] Dr. Eliecer Swanson #0.07 10e3/ulCritically high0.00-0.03The [facility] Comment on above:Performed By: #### BLDCX1 #### [facility] [address] [place] [address] Dr. Eliecer Swanson %1.1 %Critically high0.0-0.5The [facility] HospitalComment on above:Performed By: #### BLDCX1 #### [facility] [address] [place] [address] Dr. Eliecer JonesMPH #2.0 103/ulNormal1.2-3.8The [facility] HospitalComment on above:Performed By: #### BLDCX1 #### [facility] [address] [place] [address] Dr. Eliecer Jonesmphocytes/100 WBC (Bld)31.4 %Qsjsrq49.5-60.0The [facility] HospitalComment on above:Performed By: #### BLDCX1 #### [facility] [address] [place] [address] Dr. Eliecer LukeUAL DIFF REQNONormalThe [facility] HospitalComment on above: Performed By: #### BLDCX1 #### [facility] [address] [place] [address] Dr. Eliecer Leonardo (RBC) [Entitic mass]38.0 pgCritically high26.7-34.0The [facility] HospitalComment on above:Performed By: #### BLDCX1 #### [facility] [address] [place] [address] Dr. Eliecer LeonardoHC (RBC) [Mass/Vol]36.6 g/dLCritically high29.9-35.2The [facility] HospitalComment on above:Performed By: #### BLDCX1 #### [facility] [address] [place] [address] Dr. Eliecer LeonardoV (RBC) [Entitic vol]103.6 fLCritically high81.0-99.0The [facility] HospitalComment on above:Performed By: #### BLDCX1 #### [facility] [address] [place] [address] Dr. Eliecer Salas #0.8 103/ulNormal0.3-0.8The [facility] HospitalComment on above:Performed By: #### BLDCX1 #### [facility] [address] [place] [address] Dr. Eliecer Stuartocytes/100 WBC (Bld)12.5 %Critically high1.7-12.0The [facility] HospitalComment on above:Performed By: #### BLDCX1 #### [facility] [address] [place] [address] Dr. Eliecer [place] #3.2 103/ulNormal1.4-6.5The [facility] HospitalComment on above:Performed By: #### BLDCX1 #### [facility] [address] [place] [address] Dr. Eliecer Mckeonutrophils/100 WBC (Bld)49.6 %Iwbpkt20.0-75.0The [facility] HospitalComment on above:Performed By: #### BLDCX1 #### [facility] [address] [place] [address] Dr. Eliecer Shooklet mean volume (Bld) [Entitic vol]9.5 fLNormal9.5-13.5The [facility] HospitalComment on above:Performed By: #### BLDCX1 #### [facility] [address] [place] [address] Dr. Eliecer DasPLT242 103/ptJkxsad765-284Aga [facility] HospitalComment on above: Performed By: #### BLDCX1 #### [facility] [address] [place] [address] Dr. Eliecer DasRBC3.32 106/ulCritically low4.20-5.40The [facility] HospitalComment on above:Performed By: #### BLDCX1 #### [facility] [address] [place] [address] Dr. Eliecer DasWBC6.5 103/ulNormal4.0-11.0The [facility] HospitalComment on above: Performed By: #### BLDCX1 #### [facility] [address] [place] [address] Dr. Eliecer DasPOINT OF [facility] GLUCOSEon 27-86-7185Jqjfhbr [Mass/Vol]127 mg/dL Critically icbd42-578Ugo [facility] HospitalComment on above:Performed By: #### URCX #### [facility] [address] [place] [address] Dr. Eliecer DasGlucose [Mass/Vol]157 mg/dLCritically nsgx97-340Vxq [facility] HospitalComment on above:Performed By: #### POCGLUC #### [facility] [address] [place] [address] Dr. Eliecer DasGlucose [Mass/Vol]122 mg/dLCritically ipzb71-612Ksr [facility] HospitalComment on above:Performed By: #### CVDTBH #### [facility] [address] [place] [address] Dr. Eliecer DasGlucose [Mass/Vol]148 mg/dLCritically nxlp76-618Pkk [facility] HospitalComment on above:Performed By: #### POCGLUC #### [facility] [address] [place] [address] Dr. Eliecer DasPROF 14(COMP METB)on 60-09-5367[address] [Mass/Vol]2.2 g/dL Critically low3.4-5.0The [facility] HospitalComment on above:Performed By: #### CVDTBH #### [facility] [address] [place] [address] Dr. Eliecer DasAlbumin/Globulin [Mass ratio]0.6 {ratio}NormalThe [facility] HospitalComment on above:Performed By: #### CVDTBH #### [facility] [address] [place] [address] Dr. Eliecer AndrewsP [Catalytic activity/Vol]75 U/NHstsss59-298Ahs [facility] HospitalComment on above:Performed By: #### CVDTBH #### [facility] [address] [place] [address] Dr. Eliecer AndrewsT [Catalytic activity/Vol]28 U/KIvkikm56-07Vip [facility] HospitalComment on above:Performed By: #### CVDTBH #### [facility] [address] [place] [address] Dr. Eliecer Elias gap [Moles/Vol]10.9 mmol/LNormalThe [facility] Comment on above:Performed By: #### CVDTBH #### [facility] [address] [place] [address] Dr. Eliecer DasAST [Catalytic activity/Vol]42 U/LCritically mxdg21-00Edr [facility] HospitalComment on above:Performed By: #### CVDTBH #### [facility] [address] [place] [address] Dr. Eliecer DasBilirubin [Mass/Vol]1.1 mg/dLCritically high0.2-1.0The [facility] HospitalComment on above:Performed By: #### CVDTBH #### [facility] [address] [address] [address] Eliecer DasCalcium [Mass/Vol]8.9 mg/dLNormal8.5-10.1The [facility] Comment on above:Performed By: #### CVDTBH #### [facility] [address] [place] [address] Dr. Eliecer DasChloride [Moles/Vol]103 mmol/IXvsltt63-625Emb [facility] Comment on above:Performed By: #### CVDTBH #### [facility] [address] [place] [address] Dr. Eliecer DasCO2 [Moles/Vol]30.2 mmol/PMgvgew54.0-32.0The [facility] Comment on above:Performed By: #### CVDTBH #### [facility] [address] [place] [address] Dr. Eliecer DasCreatinine [Mass/Vol]1.04 mg/dLCritically high0.55-1.02The [facility] HospitalComment on above:Performed By: #### CVDTBH #### [facility] [address] [place] [address] Dr. Gonzáles ChangEGFR-AF MICRONESIAN>60Normal>=60The [facility] HospitalComment on above:Performed By: #### CVDTBH #### [facility] [address] [place] [address] Dr. Eliecer SalasGFR-NON AF JVFZUVIT75 mL/min/1.08v9Cpxodjamfx low>=60The [facility] HospitalComment on above:Performed By: #### CVDTBH #### [facility] [address] [place] [address] Dr. Eliecer DasGlobulin (S) [Mass/Vol]4.0 g/dLNormalThe [facility] HospitalComment on above:Performed By: #### CVDTBH #### [facility] [address] [place] [address] Dr. Eliecer DasGlucose [Mass/Vol]149 mg/dLCritically tcdc30-746Efv [facility] HospitalComment on above:Performed By: #### CVDTB #### [facility] [address] [address] [address] Eliecer DasPotassium [Moles/Vol]4.1 mmol/LNormal3.5-5.1The [facility] Comment on above:Performed By: #### CVDTBH #### [facility] [address] [place] [address] Dr. Eliecer DasProtein [Mass/Vol]6.2 g/dLCritically low6.4-8.2The [facility] HospitalComment on above:Performed By: #### CVDTBH #### [facility] [address] [place] [address] Dr. Eliecer Costadium [Moles/Vol]140 mmol/FAfvfuk145-381Wov [facility] Comment on above:Performed By: #### CVDTBH #### [facility] [address] [place] [address] Dr. Eliecer DasUrea nitrogen [Mass/Vol]17.0 mg/dLNormal7.0-18.0The [facility] HospitalComment on above:Performed By: #### CVDTBH #### [facility] [address] [place] [address] Dr. Eliecer Juan nitrogen/Creatinine [Mass ratio]16.3 mg/mgNormalThe [facility] HospitalComment on above:Performed By: #### CVDTBH #### [facility] [address] [place] [address] Dr. Eliecer De La Vega AUTO DIFFon [id number] #0.1 103/ulNormal0.0-0.1[facility] HospitalComment on above:Performed By: #### BLDCX2 #### [facility] [address] [place] [address] Dr. Eliecer DasBasophils/100 WBC (Bld)1.0 %Normal0.2-2.0The [facility] Comment on above:Performed By: #### BLDCX2 #### [facility] [address] [place] [address] Dr. Eliecer Farias #0.2 103/ulNormal0.0-0.7The [facility] HospitalComment on above: Performed By: #### BLDCX2 #### [facility] [address] [place] [address] Dr. Eliecer Salasosinophils/100 WBC (Bld)3.8 %Normal0.9-7.0The [facility] Comment on above:Performed By: #### BLDCX2 #### [facility] [address] [place] [address] Dr. Eliecer Salasrythrocyte distribution width (RBC) [Ratio]16.4 %Critically high 11.0-15.0The [facility] HospitalComment on above:Performed By: #### BLDCX2 #### [facility] [address] [place] [address] Dr. Eliecer DasHematocrit (Bld) [Volume fraction]35.9 %Critically low36.0-48.0 The [facility] HospitalComment on above:Performed By: #### BLDCX2 #### [facility] [address] [place] [address] Dr. Eliecer DasHemoglobin (Bld) [Mass/Vol]12.3 g/jPXxwuxa14.0-16.0The [facility] HospitalComment on above:Performed By: #### BLDCX2 #### [facility] [address] [place] [address] Dr. Eliecer Swanson #0.04 10e3/ulCritically high0.00-0.03The [facility] Comment on above:Performed By: #### BLDCX2 #### [facility] [address] [place] [address] Dr. Eliecer Swanson %0.7 %Critically high0.0-0.5The [facility] HospitalComment on above:Performed By: #### BLDCX2 #### [facility] [address] [place] [address] Dr. Eliecer Mccann #2.1 103/ulNormal1.2-3.8The [facility] HospitalComment on above:Performed By: #### BLDCX2 #### [facility] [address] [place] [address] Dr. Eliecer Jonesmphocytes/100 WBC (Bld)35.1 %Hzxwdb24.5-60.0The [facility] HospitalComment on above:Performed By: #### BLDCX2 #### [facility] [address] [place] [address] Dr. Eliecer Benson DIFF REQNONormalThe [facility] HospitalComment on above: Performed By: #### BLDCX2 #### [facility] [address] [place] [address] Dr. Eliecer Leonardo (RBC) [Entitic mass]34.5 pgCritically high26.7-34.0The [facility] HospitalComment on above:Performed By: #### BLDCX2 #### [facility] [address] [place] [address] Dr. Eliecer Leonardo (RBC) [Mass/Vol]34.3 g/dBDumpwe19.9-35.2The [facility] HospitalComment on above:Performed By: #### BLDCX2 #### [facility] [address] [place] [address] Dr. Eliecer Leonardo (RBC) [Entitic vol]100.6 fLCritically high81.0-99.0The [facility] HospitalComment on above:Performed By: #### BLDCX2 #### [facility] [address] [place] [address] Dr. Eliecer Salas #0.6 103/ulNormal0.3-0.8The [facility] HospitalComment on above:Performed By: #### BLDCX2 #### [facility] [address] [place] [address] Dr. Eliecer Stuartocytes/100 WBC (Bld)10.4 %Normal1.7-12.0The [facility] Comment on above:Performed By: #### BLDCX2 #### [facility] [address] [place] [address] Dr. Eliecer [place] #2.9 103/ulNormal1.4-6.5The Tim HospitalComment on above:Performed By: #### BLDCX2 #### [facility] [address] [place] [address] Dr. Eliecer Mckeonutrophils/100 WBC (Bld)49.0 %Ffktgk16.0-75.0The [facility] HospitalComment on above:Performed By: #### BLDCX2 #### [facility] [address] [place] [address] Dr. Eliecer DasPlatelet mean volume (Bld) [Entitic vol]9.5 fLNormal9.5-13.5The [facility] HospitalComment on above:Performed By: #### BLDCX2 #### [facility] [address] [place] [address] Dr. Eliecer DasPLT260 103/wtZsclmu255-195Wns [facility] HospitalComment on above: Performed By: #### BLDCX2 #### [facility] [address] [place] [address] Dr. Eliecer DasRBC3.57 106/ulCritically low4.20-5.40The [facility] HospitalComment on above:Performed By: #### BLDCX2 #### [facility] [address] [place] [address] Dr. Eliecer DasWBC6.0 103/ulNormal4.0-11.0The [facility] HospitalComhar[facility] on above: Performed By: #### BLDCX2 #### [facility] [address] [place] [address] Dr. Eliecer DasPOINT OF CARE GLUCOSEon 02-90-9179Uvtyvbu [Mass/Vol]217 mg/dL Critically yfyh96-828Nif [facility] HospitalComment on above:Performed By: #### BLDCX1 #### [facility] [address] [place] [address] Dr. Eliecer DasGlucose [Mass/Vol]149 mg/dLCritically plwp41-555Zzc [facility] HospitalComment on above:Performed By: #### POCGLUC #### [facility] [address] [place] [address] Dr. Eliecer DasGlucose [Mass/Vol]126 mg/dLCritically tjce70-695Ifj [facility] HospitalComment on above:Performed By: #### POCGLUC #### [facility] [address] [place] [address] Dr. Eliecer Maldonado 14(COMP METB)on 48-14-0147Eogihpt [Mass/Vol]2.2 g/dL Critically low3.4-5.0The [facility] HospitalComment on above:Performed By: #### BLDCX2 #### [facility] [address] [place] [address] Dr. Eliecer DasAlbumin/Globulin [Mass ratio]0.6 {ratio}NormalThe [facility] HospitalComment on above:Performed By: #### BLDCX2 #### [facility] [address] [place] [address] Dr. Eliecer Mallory [Catalytic activity/Vol]71 U/LBpfhkn94-473Bvm [facility] HospitalComment on above:Performed By: #### BLDCX2 #### [facility] [address] [place] [address] Dr. Eliecer Conley [Catalytic activity/Vol]25 U/JTsyxwg80-00Ouo [facility] HospitalComment on above:Performed By: #### BLDCX2 #### [facility] [address] [place] [address] Dr. Eliecer Elias gap [Moles/Vol]8.1 mmol/LNormalThe [facility] HospitalComment on above:Performed By: #### BLDCX2 #### [facility] [address] [place] [address] Dr. Eliecer DasAST [Catalytic activity/Vol]40 U/LCritically vtet99-31Ufq [facility] HospitalComment on above:Performed By: #### BLDCX2 #### [facility] [address] [place] [address] Dr. Eliecer DasBilirubin [Mass/Vol]1.3 mg/dLCritically high0.2-1.0The [facility] HospitalComment on above:Performed By: #### BLDCX2 #### [facility] [address] [place] [address] Dr. Eliecer DasCalcium [Mass/Vol]8.8 mg/dLNormal8.5-10.1The [facility] Comment on above:Performed By: #### BLDCX2 #### [facility] [address] [address] [address] Eliecer DasChloride [Moles/Vol]106 mmol/WEkrbus91-756Qsz [facility] Comment on above:Performed By: #### BLDCX2 #### [facility] [address] [address] [address] Eliecer DasCO2 [Moles/Vol]29.7 mmol/TLbaitd45.0-32.0The [facility] Comment on above:Performed By: #### BLDCX2 #### [facility] [address] [place] [address] Dr. Eliecer DasCreatinine [Mass/Vol]1.00 mg/dLNormal0.55-1.02The [facility] HospitalComment on above:Performed By: #### BLDCX2 #### [facility] [address] [place] [address] Dr. Gonzáles ChangEGFR-AF MICRONESIAN>60Normal>=60The [facility] HospitalComment on above:Performed By: #### BLDCX2 #### [facility] [address] [place] [address] Dr. Eliecer SalasGFR-NON AF WEVLRJJR76 mL/min/1.08x6Vfgirvnxpu low>=60The [facility] HospitalComment on above:Performed By: #### BLDCX2 #### [facility] [address] [place] [address] Dr. Eliecer DasGlobulin (S) [Mass/Vol]3.9 g/dLNormalThe [facility] HospitalComment on above:Performed By: #### BLDCX2 #### [facility] [address] [place] [address] Dr. Eilecer DasGlucose [Mass/Vol]139 mg/dLCritically wpqn42-399Dhw [facility] HospitalComment on above:Performed By: #### BLDCX2 #### [facility] [address] [place] [address] Dr. Eliecer DasPotassium [Moles/Vol]3.8 mmol/LNormal3.5-5.1The [facility] Comment on above:Performed By: #### BLDCX2 #### [facility] [address] [place] [address] Dr. Eliecer DasProtein [Mass/Vol]6.1 g/dLCritically low6.4-8.2The [facility] HospitalComment on above:Performed By: #### BLDCX2 #### [facility] [address] [place] [address] Dr. Eliecer DasSodium [Moles/Vol]140 mmol/GScennv503-282Ozw [facility] Comment on above:Performed By: #### BLDCX2 #### [facility] [address] [place] [address] Dr. Eliecer DasUrea nitrogen [Mass/Vol]14.0 mg/dLNormal7.0-18.0The [facility] HospitalComment on above:Performed By: #### BLDCX2 #### [facility] [address] [place] [address] Dr. Eliecer Juan nitrogen/Creatinine [Mass ratio]14.0 mg/mgNormalThTrinity Health SystemComment on above:Performed By: #### BLDCX2 #### [facility] [address] [place] [address] Dr. Eliecer De La Vega AUTO DIFFon 34-00-8459VEUD #0.1 103/ulNormal0.0-0.1The [facility] HospitalComment on above:Performed By: #### BLDCX1 #### [facility] [address] [place] [address] Dr. Eliecer DasBaeliasphils/100 WBC (Bld)1.1 %Normal0.2-2.0The [facility] Comment on above:Performed By: #### BLDCX1 #### [facility] [address] [place] [address] Dr. Gonzáles ChangEO #0.2 103/ulNormal0.0-0.7The Tim HospitalComment on above: Performed By: #### BLDCX1 #### [facility] [address] [place] [address] Dr. Eliecer Salasosinophils/100 WBC (Bld)4.4 %Normal0.9-7.0The [facility] Comment on above:Performed By: #### BLDCX1 #### [facility] [address] [place] [address] Dr. Eliecer Salasrythrocyte distribution width (RBC) [Ratio]17.3 %Critically high 11.0-15.0The [facility] HospitalComment on above:Performed By: #### BLDCX1 #### [facility] [address] [place] [address] Dr. Eliecer DasHematocrit (Bld) [Volume fraction]35.3 %Critically low36.0-48.0 The Parkwood HospitalComment on above:Performed By: #### [email or web address] #### [facility] [address] [place] [address] Dr. Eliecer aDsHemoglobin (Bld) [Mass/Vol]12.6 g/gLZtstrs00.0-16.0The [facility] HospitalComment on above:Performed By: #### BLDCX1 #### [facility] [address] [place] [address] Dr. Eliecer Swanson #0.03 10e3/ulNormal0.00-0.03The [facility] HospitalComment on above:Performed By: #### BLDCX1 #### [facility] [address] [place] [address] Dr. Eliecer Swanson %0.6 %Critically high0.0-0.5The [facility] HospitalComment on above:Performed By: #### BLDCX1 #### [facility] [address] [place] [address] Dr. Eliecer JonesMPH #2.0 103/ulNormal1.2-3.8The [facility] HospitalComment on above:Performed By: #### BLDCX1 #### [facility] [address] [place] [address] Dr. Eliecer Jonesmphocytes/100 WBC (Bld)38.4 %Emayzg10.5-60.0The [facility] HospitalComment on above:Performed By: #### BLDCX1 #### [facility] [address] [place] [address] Dr. Eliecer LukeUAL DIFF REQNONormalThe [facility] HospitalComment on above: Performed By: #### BLDCX1 #### [facility] [address] [place] [address] Dr. Eliecer Leonardo (RBC) [Entitic mass]36.0 pgCritically high26.7-34.0The [facility] HospitalComment on above:Performed By: #### BLDCX1 #### [facility] [address] [place] [address] Dr. Eliecer Leonardo (RBC) [Mass/Vol]35.7 g/dLCritically high29.9-35.2The [facility] HospitalComment on above:Performed By: #### BLDCX1 #### [facility] [address] [place] [address] Dr. Eliecer Leonardo (RBC) [Entitic vol]100.9 fLCritically high81.0-99.0The [facility] HospitalComment on above:Performed By: #### BLDCX1 #### [facility] [address] [place] [address] Dr. Eliecer Salas #0.6 103/ulNormal0.3-0.8The [facility] HospitalComment on above:Performed By: #### BLDCX1 #### [facility] [address] [place] [address] Dr. Eliecer Stuartocytes/100 WBC (Bld)11.1 %Normal1.7-12.0The [facility] Comment on above:Performed By: #### BLDCX1 #### [facility] [address] [place] [address] Dr. Eliecer Rogers #2.3 103/ulNormal1.4-6.5The [facility] HospitalComment on above:Performed By: #### BLDCX1 #### [facility] [address] [place] [address] Dr. Eliecer Mckeonutrophils/100 WBC (Bld)44.4 %Sbscyq94.0-75.0[facility] on above:Performed By: #### BLDCX1 #### [facility] [address] [place] [address] Dr. Eliecer Shooklet mean volume (Bld) [Entitic vol]9.5 fLNormal9.5-13.5The [facility] HospitalComment on above:Performed By: #### BLDCX1 #### [facility] [address] [place] [address] Dr. Eliecer DasPLT264 103/gkEtzpnn462-105Ayw [facility]Com[facility] on above: Performed By: #### BLDCX1 #### [facility] [address] [place] [address] Dr. Eliecer DasRBC3.50 106/ulCritically low4.20-5.40The [facility] HospitalComment on above:Performed By: #### BLDCX1 #### [facility] [address] [place] [address] Dr. Eliecer DasWBC5.2 103/ulNormal4.0-11.0The [facility] on above: Performed By: #### BLDCX1 #### [facility] [address] [place] [address] Dr. Eliecer DasPOINT OF [facility] GLUCOSEon 02-66-0434Iflzkkc [Mass/Vol]189 mg/dL Critically zves21-462Gtk [facility] HospitalComment on above:Performed By: #### POCGLUC #### [facility] [address] [place] [address] Dr. Eliecer DasGlucose [Mass/Vol]69 mg/dLCritically pbw77-311Yoy [facility]Com[facility] on above:Performed By: #### BLDCX2 #### [facility] [address] [place] [address] Dr. Eliecer DasGlucose [Mass/Vol]220 mg/dLCritically osnb35-512Qfj [facility] HospitalComment on above:Performed By: #### URCX #### [facility] [address] [address] [address] Eliecer Maldonado 14(COMP METB)on 55-05-0202Dyggeyw [Mass/Vol]2.3 g/dL Critically low3.4-5.0The [facility] HospitalComment on above:Performed By: #### POCGLUC #### [facility] [address] [place] [address] Dr. Eliecer DasAlbumin/Globulin [Mass ratio]0.6 {ratio}NormalThe [facility] HospitalComment on above:Performed By: #### POCGLUC #### [facility] [address] [place] [address] Dr. Eliecer AndrewsP [Catalytic activity/Vol]77 U/NYqprfa25-285Mkn [facility] HospitalComment on above:Performed By: #### POCGLUC #### [facility] [address] [place] [address] Dr. Eliecer Conley [Catalytic activity/Vol]31 U/GIoyolj53-97Hbs [facility] HospitalComment on above:Performed By: #### POCGLUC #### [facility] [address] [place] [address] Dr. Eliecer Elias gap [Moles/Vol]8.6 mmol/LNormalThe [facility] HospitalComment on above:Performed By: #### POCGLUC #### [facility] [address] [place] [address] Dr. Eliecer DasAST [Catalytic activity/Vol]42 U/LCritically zjnd42-41Muh [facility] HospitalComment on above:Performed By: #### POCGLUC #### [facility] [address] [place] [address] Dr. Eliecer DasBilirubin [Mass/Vol]1.8 mg/dLCritically high0.2-1.0The [facility] HospitalComment on above:Performed By: #### POCGLUC #### [facility] [address] [place] [address] Dr. Eliecer DasCalcium [Mass/Vol]8.7 mg/dLNormal8.5-10.1The [facility] Comment on above:Performed By: #### POCGLUC #### [facility] [address] [address] [address] Eliecer DasChloride [Moles/Vol]109 mmol/LCritically zfhu73-773HhxProtestant Deaconess HospitalComment on above:Performed By: #### POCGLUC #### [facility] [address] [address] [address] Eliecer DasCO2 [Moles/Vol]29.3 mmol/FHcdfwi91.0-32.0The [facility] Comment on above:Performed By: #### POCGLUC #### [facility] [address] [place] [address] Dr. Eliecer DasCreatinine [Mass/Vol]0.86 mg/dLNormal0.55-1.02The [facility] HospitalComment on above:Performed By: #### POCGLUC #### [facility] [address] [place] [address] Dr. Eliecer SalasGFR-AF MICRONESIAN>60Normal>=60The [facility] HospitalComment on above:Performed By: #### POCGLUC #### [facility] [address] [place] [address] Dr. Eliecer SalasGFR-NON AF MICRONESIAN>60Normal>=60The [facility] HospitalComment on above:Performed By: #### POCGLUC #### [facility] [address] [address] [address] Eliecer DasGlobulin (S) [Mass/Vol]3.9 g/dLNormalThe [facility] HospitalComment on above:Performed By: #### POCGLUC #### [facility] [address] [place] [address] Dr. Eliecer DasGlucose [Mass/Vol]104 mg/wIPgsqmz77-130Ltv [facility] Comment on above:Performed By: #### POCGLUC #### [facility] [address] [address] [address] Eliecer DasPotassium [Moles/Vol]3.9 mmol/LNormal3.5-5.1The [facility] Comment on above:Performed By: #### POCGLUC #### [facility] [address] [place] [address] Dr. Eliecer DasProtein [Mass/Vol]6.2 g/dLCritically low6.4-8.2The [facility] HospitalComment on above:Performed By: #### POCGLUC #### [facility] [address] [place] [address] Dr. Eliecer Ferreraum [Moles/Vol]143 mmol/LEgfbia377-738Ytf [facility] Comment on above:Performed By: #### POCGLUC #### [facility] [address] [place] [address] Dr. Eliecer Juan nitrogen [Mass/Vol]12.0 mg/dLNormal7.0-18.0The [facility] HospitalComment on above:Performed By: #### POCGLUC #### [facility] [address] [place] [address] Dr. Eliecer Juan nitrogen/Creatinine [Mass ratio]14.0 mg/mgNormalThe [facility] HospitalComment on above:Performed By: #### POCGLUC #### [facility] [address] [place] [address] Dr. Eliecer Stafford 74-28-2185Wibmrryceuk peptide B (Bld) [Mass/Vol]66.0 pg/mL Normal<=1,800.0The [facility] HospitalComment on above:Performed By: #### CVDTBH #### [facility] [address] [place] [address] Dr. Eliecer Schultz MARQUIS ADMITon [id number] [Catalytic activity/Vol]21 U/L Critically oti53-707Ugk [facility] HospitalComment on above:Performed By: #### CVDTBH #### [facility] [address] [place] [address] Dr. Eliecer Ham.MB [Mass/Vol]ng/mLNormal<=3.60The [facility] HospitalComment on above:Performed By: #### CVDTBH #### [facility] [address] [place] [address] Dr. Eliecer DasHSTROP7.1 pg/mLNormal4.0-51.3The [facility] HospitalComment on above:Result Comment: CUT-OFF POINTS HAVE BEEN ESTABLISHED BASED ON THE FOURTH UNIVERSAL DEFINITIONS OF MYOCARDIAL INFARCTION. THE UPPER REFERENCE LIMIT (URL) OF TROPONIN, DEFINED THE 99TH PERCENTILE OF cTnI DISTRIBUTION IN A REFERENCE POPULATION, HAS BEEN CONFIRMED THE DECISION THRESHOLD FOR NH DIAGNOSIS.Performed By: #### CVDTBH #### [facility] [address] [place] [address] Dr. Eliecer DasMYO23 ng/mLNormal9-82The [facility] HospitalComment on above: Performed By: #### CVDTBH #### [facility] [address] [place] [address] Dr. Eliecer De La Vega AUTO DIFFon [id number] #0.1 103/ulNormal0.0-0.1The [facility] HospitalComment on above:Performed By: #### BLDCX2 #### [facility] [address] [place] [address] Dr. Eliecer DasBasophils/100 WBC (Bld)1.2 %Normal0.2-2.0[facility] Comment on above:Performed By: #### BLDCX2 #### [facility] [address] [place] [address] Dr. Eliecer Farias #0.2 103/ulNormal0.0-0.7The [facility] HospitalComment on above: Performed By: #### BLDCX2 #### [facility] [address] [place] [address] Dr. Eliecer Salasosinophils/100 WBC (Bld)3.4 %Normal0.9-7.0The [facility] Comment on above:Performed By: #### BLDCX2 #### [facility] [address] [place] [address] Dr. Eliecer Salasrythrocyte distribution width (RBC) [Ratio]17.3 %Critically high 11.0-15.0The [facility] HospitalComment on above:Performed By: #### BLDCX2 #### [facility] [address] [place] [address] Dr. Eliecer Bryanatocrit (Bld) [Volume fraction]39.8 %Wuuazl82.0-48.0The [facility] HospitalComment on above:Performed By: #### BLDCX2 #### [facility] [address] [place] [address] Dr. Eliecer DasHemoglobin (Bld) [Mass/Vol]13.8 g/gHCinllo26.0-16.0The [facility] HospitalComment on above:Performed By: #### BLDCX2 #### [facility] [address] [place] [address] Dr. Eliecer Swanson #0.04 10e3/ulCritically high0.00-0.03The [facility] Comment on above:Performed By: #### BLDCX2 #### [facility] [address] [place] [address] Dr. Eliecer Swanson %0.7 %Critically high0.0-0.5The [facility] HospitalComment on above:Performed By: #### BLDCX2 #### [facility] [address] [place] [address] Dr. Eliecer Mccann #1.9 103/ulNormal1.2-3.8The [facility] HospitalComment on above:Performed By: #### BLDCX2 #### [facility] [address] [place] [address] Dr. Eliecer Hardinghocytes/100 WBC (Bld)33.7 %Fbtmim02.5-60.0The [facility] HospitalComment on above:Performed By: #### BLDCX2 #### [facility] [address] [place] [address] Dr. Eliecer LukeUAL DIFF REQNONormalThe [facility] HospitalComment on above: Performed By: #### BLDCX2 #### [facility] [address] [place] [address] Dr. Eliecer Rodriguez (RBC) [Entitic mass]34.7 pgCritically high26.7-34.0The [facility] HospitalComment on above:Performed By: #### BLDCX2 #### [facility] [address] [place] [address] Dr. Eliecer Leonardo (RBC) [Mass/Vol]34.7 g/nVAixihk51.9-35.2The [facility] HospitalComment on above:Performed By: #### BLDCX2 #### [facility] [address] [place] [address] Dr. Eliecer Leonardo (RBC) [Entitic vol]100.0 fLCritically high81.0-99.0The [facility] HospitalComment on above:Performed By: #### BLDCX2 #### [facility] [address] [place] [address] Dr. Eliecer Salas #0.5 103/ulNormal0.3-0.8The [facility] HospitalComment on above:Performed By: #### BLDCX2 #### [facility] [address] [place] [address] Dr. Eliecer Stuartocytes/100 WBC (Bld)8.3 %Normal1.7-12.0The [facility] Comment on above:Performed By: #### BLDCX2 #### [facility] [address] [place] [address] Dr. Eliecer [place] #3.0 103/ulNormal1.4-6.5The [facility] HospitalComment on above:Performed By: #### BLDCX2 #### [facility] [address] [place] [address] Dr. Eliecer Mckeonutrophils/100 WBC (Bld)52.7 %Nspmos17.0-75.0The [facility] HospitalComment on above:Performed By: #### BLDCX2 #### [facility] [address] [place] [address] Dr. Eliecer Shooklet mean volume (Bld) [Entitic vol]9.3 fLCritically low 9.5-13.5The [facility] HospitalComment on above:Performed By: #### BLDCX2 #### [facility] [address] [place] [address] Dr. Eliecer DasPLT293 103/ngOmnyel223-750Cly [facility] HospitalComment on above: Performed By: #### BLDCX2 #### [facility] [address] [place] [address] Dr. Eliecer DasRBC3.98 106/ulCritically low4.20-5.40The [facility] HospitalComment on above:Performed By: #### BLDCX2 #### [facility] [address] [place] [address] Dr. Eliecer DasWBC5.7 103/ulNormal4.0-11.0The [facility] HospitalComment on above: Performed By: #### BLDCX2 #### [facility] [address] [place] [address] Dr. Eliecer Devlin BLOODon 91-41-3133Mgflkudgswn examination of blood, cultureCulture Observations: NO GROWTH AT 5 DAYS.NormalThe [facility] HospitalComment on above:Performed By: #### BLDCX2 #### [facility] [address] [place] [address] Dr. Eliecer DasMicroscopic examination of blood, cultureCulture Observations: NO GROWTH AT 5 DAYS.NormalThe [facility] HospitalComment on above:Performed By: #### BLDCX1 #### [facility] [address] [place] [address] Dr. Eliecer Devlin URINEon 45-78-4020MCFCQBX URINECulture Observations: NO GROWTH.NormalThe [facility] HospitalComment on above:Performed By: #### URCX #### [facility] [address] [place] [address] Dr. Eliecer Villanueva-19 PCR ([facility])on 41-15-7447TSNM-CoV-2 (COVID-19) RNA PELON+probe Ql (Unsp spec)Not detectedNormalNOT DETECTEDThe [facility] Comment on above:Performed By: #### POCGLUC #### [facility] [address] [place] [address] Dr. Eliecer Hall URINE PROFILEon 70-19-3831Mwikouifk Ql (U)NegativeNormal NEGATIVEProtestant Deaconess HospitalComment on above:Performed By: #### BLDCX2 #### [facility] [address] [place] [address] Dr. Eliecer DasClarity (U)CLEARNormalCLEARProtestant Deaconess HospitalComment on above: Performed By: #### BLDCX2 #### [facility] [address] [address] [address] Eliecer Pittlor (U)YELLOWNormalYELLOWProtestant Deaconess HospitalComment on above: Performed By: #### BLDCX2 #### [facility] [address] [place] [address] Dr. Eliecer Queen micrscopic examination will be performed if indicated. NormalThe [facility] HospitalComment on above:Performed By: #### BLDCX2 #### [facility] [address] [place] [address] Dr. Eliecer DasGlucose Ql (U)NegativeNormalNEGATIVEProtestant Deaconess HospitalComment on above:Performed By: #### BLDCX2 #### [facility] [address] [place] [address] Dr. Eliecer DasHemoglobin Ql (U)LARGEAbnormalNEGATIVEGood [facility]aritan [facility] on above:Performed By: #### BLDCX2 #### [facility] [address] [place] [address] Dr. Eliecer DasKetones Ql (U)NegativeNormalNEGATIVEProtestant Deaconess HospitalComment on above:Performed By: #### BLDCX2 #### [facility] [address] [place] [address] Dr. Eliecer DasLEUKOCYTESTRACEAbnormalNEGATIVEProtestant Deaconess HospitalComharper university hospital on above:Performed By: #### BLDCX2 #### [facility] [address] [place] [address] Dr. Eliecer DasNitrite Ql (U)NegativeNormalNEGATIVEProtestant Deaconess HospitalComment on above:Performed By: #### BLDCX2 #### [facility] [address] [address] [address] Eliecer DaspH (U)6.5 [pH]Normal5-9The [facility] HospitalComment on above: Performed By: #### BLDCX2 #### [facility] [address] [address] [address] Eliecer DasSPEC GRAVITY1.819Flvfbj1.005-<=1.025The [facility] HospitalComment on above:Performed By: #### BLDCX2 #### [facility] [address] [address] [address] Eliecer Moss PROTEINNegativeNormalNEGATIVE/ TRACEThe [facility] Comment on above:Performed By: #### BLDCX2 #### [facility] [address] [place] [address] Dr. Eliecer Crowe MICRO INDINDICATEDNormalThe [facility] HospitalComment on above: Performed By: #### BLDCX2 #### [facility] [address] [address] [address] Eliecer Pikebilinogen Qn (U)2.0 {Narinder'U}/dLAbnormal0.2 - 1.0The [facility] HospitalComment on above:Performed By: #### BLDCX2 #### [facility] [address] [place] [address] Dr. Eliecer DasPOINT OF CARE GLUCOSEon 90-63-9172Kjpvins [Mass/Vol]153 mg/dL Critically lapp78-575Ieu [facility] HospitalComment on above:Performed By: #### BLDCX2 #### [facility] [address] [place] [address] Dr. Eliecer DasGlucose [Mass/Vol]176 mg/dLCritically wwgf14-314RbuProtestant Deaconess HospitalComment on above:Performed By: #### BLDCX2 #### [facility] [address] [place] [address] Dr. Eliecer DasPROF 14(COMP METB)on 90-66-2926Muqpmqi [Mass/Vol]2.7 g/dL Critically low3.4-5.0The [facility] Hospitalment on above:Performed By: #### CVDTBH #### [facility] [address] [address] [address] Eliecer DasAlbumin/Globulin [Mass ratio]0.6 {ratio}NormalThe [facility] HospitalComment on above:Performed By: #### CVDTBH #### [facility] [address] [address] [address] Eliecer Mallory [Catalytic activity/Vol]91 U/TWcvwyg21-979Epf [facility] HospitalComment on above:Performed By: #### CVDTBH #### [facility] [address] [address] [address] Eliecer Conley [Catalytic activity/Vol]36 U/PTcqxkg71-06Ugg [facility] on above:Performed By: #### CVDTBH #### [facility] [address] [address] [address] Eliecer Lynchon gap [Moles/Vol]10.8 mmol/LNormalThe [facility] Comment on above:Performed By: #### CVDTBH #### [facility] [address] [address] [address] Eliecer DasAST [Catalytic activity/Vol]53 U/LCritically zloq77-28Prb [facility] on above:Performed By: #### CVDTBH #### [facility] [address] [address] [address] Eliecer DasBilirubin [Mass/Vol]1.3 mg/dLCritically high0.2-1.0The [facility] HospitalComment on above:Performed By: #### CVDTBH #### [facility] [address] [address] [address] Eliecer DasCalcium [Mass/Vol]9.2 mg/dLNormal8.5-10.1The [facility] Comment on above:Performed By: #### CVDTBH #### [facility] [address] [address] [address] Eliecer DasChloride [Moles/Vol]108 mmol/LCritically nufa36-993Drf [facility] HospitalComment on above:Performed By: #### CVDTBH #### [facility] [address] [address] [address] Eliecer DasCO2 [Moles/Vol]29.4 mmol/TDtkxiq27.0-32.0The [facility] Comment on above:Performed By: #### CVDTBH #### [facility] [address] [address] [address] Eliecer DasCreatinine [Mass/Vol]0.92 mg/dLNormal0.55-1.02The [facility] HospitalComment on above:Performed By: #### CVDTBH #### [facility] [address] [place] [address] Dr. Eliecer SalasGFR-AF MICRONESIAN>60Normal>=60The [facility] HospitalComment on above:Performed By: #### CVDTBH #### [facility] [address] [address] [address] Eliecer SalasGFR-NON AF LLDYLZZV08 mL/min/1.49b2Usiqsjimsl low>=60The [facility] HospitalComment on above:Performed By: #### CVDTBH #### [facility] [address] [place] [address] Dr. Eliecer DasGlobulin (S) [Mass/Vol]4.5 g/dLNormalThe [facility] HospitalComment on above:Performed By: #### CVDTBH #### [facility] [address] [address] [address] Eliecer DasGlucose [Mass/Vol]120 mg/dLCritically yrta54-578NvvProtestant Deaconess HospitalComment on above:Performed By: #### CVDTBH #### [facility] [address] [address] [address] Eliecer DasPotassium [Moles/Vol]4.2 mmol/LNormal3.5-5.1The [facility] Comment on above:Performed By: #### CVDTBH #### [facility] [address] [address] [address] Eliecer DasProtein [Mass/Vol]7.2 g/dLNormal6.4-8.2[facility] Comment on above:Performed By: #### CVDTBH #### [facility] [address] [place] [address] Dr. Eliecer DasSodium [Moles/Vol]144 mmol/VPntrkz132-991YtnProtestant Deaconess Hospital Comment on above:Performed By: #### CVDTBH #### [facility] [address] [place] [address] Dr. Eliecer Juan nitrogen [Mass/Vol]15.0 mg/dLNormal7.0-18.0The [facility] HospitalComment on above:Performed By: #### CVDTBH #### [facility] [address] [place] [address] Dr. Eliecer Juan nitrogen/Creatinine [Mass ratio]16.3 mg/mgNoAdena Pike Medical CenterComment on above:Performed By: #### CVDTBH #### [facility] [address] [place] [address] Dr. Eliecer Gann 01-85-7135YLS Coag (PPP) [Relative time]1.03 {INR} NormalProtestant Deaconess HospitalComment on above:Performed By: #### BLDCX1 #### [facility] [address] [place] [address] Dr. Eliecer Michel GUIDELINESSEE BELOWMarietta Osteopathic ClinicComment on above:Result Comment: DESIRED INR: 2.0 - 3.0 CONDITIONS NOT LISTED BELOW 2.5 - 3.5 FOR PROSTHETIC HEART VALVE REPLACEMENT 2.5 - 3.5 RECURRENT THROMBOSIS Performed By: #### BLDCX1 #### [facility] [address] [place] [address] Dr. Eliecer DasPT Coag (PPP) [Time]10.9 sNormal9.0-11.6The [facility] Comment on above:Performed By: #### BLDCX1 #### [facility] [address] [place] [address] Dr. Eliecer Alexander [id number] Coag (Bld) [Time]26.4 wOpiqut06.3-36.2The [facility] Hospitalment on above:Performed By: #### BLDCX1 #### [facility] [address] [place] [address] Dr. Eliecer SouzaMATIC COVID-19 ANTIGENon [id number] StatementSEE BELOW NormalThe [facility] on above:Result Comment: This test has not [...] is revoked sooner.Performed By: #### BLDCX2 #### [facility] [address] [place] [address] Dr. Eliecer Cruz-CoV-2 (COVID-19) RNA PELON+probe Ql (Unsp spec)NegativeNormal NEGATIVEThe [facility] HospitalComment on above:Performed By: #### BLDCX2 #### [facility] [address] [place] [address] Dr. Eliecer Ontiveros MICROSCOPIC ONLYon [id number]L SEEN [facility] HospitalComharper university hospital on above:Performed By: #### BLDCX2 #### [facility] [address] [place] [address] Dr. Eliecer Mcgill identified Cx Nom (U)INDICATEDNormalThTrinity Health SystemComment on above:Performed By: #### BLDCX2 #### [facility] [address] [place] [address] Dr. Eliecer Clifford SEENNormalNONE SEENProtestant Deaconess HospitalComment on above:Performed By: #### BLDCX2 #### [facility] [address] [address] [address] Eliecer DasCrystals LM Nom (Urine sed)NONE SEENNormalNONE SEENThe Parkwood HospitalComment on above:Performed By: #### BLDCX2 #### [facility] [address] [place] [address] Dr. Gonzáles ChangEpithelial cells LM Ql (Urine sed)FEWAbnormalNONE SEEN /RAREThe Parkwood HospitalComment on above:Performed By: #### BLDCX2 #### [facility] [address] [place] [address] Dr. Eliecer DasMUCOUSNONE SEENNormalNONE SEENThe Parkwood HospitalComment on above:Performed By: #### BLDCX2 #### [facility] [address] [place] [address] Dr. Eliecer DasVokjxUXR64-95Tmwlrrbr3-5Vcz Parkwood HospitalComment on above: Performed By: #### BLDCX2 #### [facility] [address] [place] [address] Dr. Eliecer DasWBC5-10AbnormalNONE SEENThe Parkwood HospitalComment on above: Performed By: #### BLDCX2 #### [facility] [address] [place] [address] Dr. Eliecer DasXR CHEST 1 Von 14-56-6723UF CHEST 1 VEXAMINATION: XR CHEST 1 V [...] Electronically authenticated by: BOBBY RAMACHANDRAN Date: 2023-01-24 11:06[facility] Osteopathic ClinicUrinalysis - AUTOMATEDon 89-67-8280Tjpoboitae (U)CLEARNoSAN [employer] Other Bilirubin Ql (U)NegativeSAN [employer] Other Color (U)YELLOWNolee's summit hospital [employer] Other Glucose Ql (U)NegativeSAN [employer] Other Hemoglobin Ql (U)TRACENolee's summit hospital [employer] Other Ketones Ql (U)NegativeNorth [place] [employer] Other Leukocyte esterase Test strip Ql (U)NegativeSAN [employer] Other Nitrite Ql (U)CREDANT TechnologiesSAN [employer] Other pH (U)6.5 [pH]Junar Other Protein Ql (U)CREDANT TechnologiesSAN [employer] Other Specific gravity (U) [Rel density]1.030[facility] [employer] Other Urobilinogen (U) [Mass/Vol]1.0 mg/dLNorth Las Vegas [employer] Other Urinalysis - AUTOMATEDNorth [place] [employer] Other Urine Cultureon 86-41-9047Jzzoikjo identified Cx Nom (U)Reason for Exam Suspected urinary tract infection Urine 15,000 colonies/ml mixed bacterial skin contaminants 2 Days PERFORMED BY: [place] [address] PATHOLOGIST TEACHER DANCING CARLOS CHOUDHURY M.D.Clermont County HospitalComment on above: Performed By: #### CUU #### [place] [address] USAUrine culture routineOrdered By: Brendon Castelan on 96-39-3169Ucgmhhrj identified Cx Nom (U)2 DaysBerger Hospital Blood Urea Nitrogenon 52-60-4934Hmed nitrogen [Mass/Vol]8 mg/dLNormal04-09 Berger HospitalComment on above:Order Comment: Reason for Exam Dependent edemaPerformed By: #### CREAT, BUN #### [facility] [address] [place] [address] USACreatinineon 70-66-5013Dtconycgfp [Mass/Vol]0.77 mg/dL Normal0.60-1.20Berger HospitalComment on above:Order Comment: Reason for Exam Dependent edemaPerformed By: #### CREAT, BUN #### [facility] [address] [place] [id number] USAGFR/1.73 sq M.predicted MDRD (S/P/Bld) [Vol rate/Area] mL/min/{1.73_m2}NormalBerger HospitalComment on above:Order Comment: Reason for Exam Dependent edemaResult Comment: PERFORMED BY: [place] [address] PATHOLOGIST TEACHER DANCING CARLOS CHOUDHURY M.D.Performed By: #### CREAT, BUN #### [facility] [address] [place] [id number] USACreatinine [Mass/volume] in Serum or PlasmaOrdered By: Brendon Castelan on 31-56-2242Cxeqgkijqk [Mass/Vol]0.77 mg/dL0.60-1.20Berger HospitalNo Panel InformationOrdered By: Brendon Castelan on 04-22-8471Abyqysler GFR (CKD-EPI)> 60.0 mL/MinBerger Hospital Pharmacy Creatinine Clearance (ChemN/AFKeenan Private HospitalUrea nitrogen [Mass/volume] in Serum or PlasmaOrdered By: Brendon Castelan on 71-03-0995Hmsv nitrogen [Mass/Vol]8 mg/dL7-25[facility] Urinalysis - AUTOMATEDon 02-10-5156Pkkxsphehv (U)[employer] Other Bilirubin Ql (U)[employer]at Other Color (U)YELLOWJunar Other Glucose Ql (U)LetsWombat Other Hemoglobin Ql (U)NegativeNorth [place] [employer] Other Ketones Ql (U)NegativeNorth [place] [employer] Other Leukocyte esterase Test strip Ql (U)TRACENolee's summit hospital [employer] Other Nitrite Ql (U)PositiveNorth [place] Vegas [employer] Other pH (U)6.0 [pH][place] [employer] Other Protein Ql (U)NegativeNorth [place] [employer] Other Specific gravity (U) [Rel density]>=1.030[facility] [employer] Other Urobilinogen (U) [Mass/Vol]1.0 E.UNorth [employer] Other Urinalysis - AUTOMATEDNorth [place] [employer] Other Urine Cultureon 44-14-1227Pzikefzx identified Cx Nom (U)ORGANISM: Escherichia coli (O:ESCCOL) Newborn Count >100,000 Aerobic DALE Charge (NMIC56) SUSCEPTIBILITY [...] RESISTANT TO ALL B-LACTAM DRUGS. PERFORMED BY: [place] [address] PATHOLOGIST TEACHER DANCING CARLOS CHOUDHURY M.D.[facility]ermont County HospitalComment on above: Performed By: #### CUU #### [place] [address] USAA1C HEMOGLOBINon 18-45-9773JyR0x (Bld) [Mass fraction]6.5 %Junar Other HbA1c (Bld) [Mass fraction]on 83-46-2987R8S HEMOGLOBIN [employer] [facility] myOrder Other CT chest wo conon 06-19-6143JL chest wo [facility] [place] [address] [place] [address] CT Scan Report Signed Patient: Salma Quan MR#: [id number] : [id number] Acct:[id number] Age/Sex: 87 / F ADM Date: 11/26/22 Loc: CT Room: Type: [facility] Attending Dr: MITZY Porter APRN Copies to: [...] Cameron Jr., DKellyOKelly11/26/2022 3:56 PM Dictation Location: [place] [address] Transcribed By: [facility] 11/26/22 155 Dictated By: Christiano Cameron Jr, DO 11/26/22 1554 Signed By: 11/26/22 1556NoAvita Health System Ontario HospitalCULTURE URINEon 10-16-2022 CULTURE URINEIsolate 1 Escherichia [...] <=16 S F Trimethoprim/Sulfamethoxazole >=320 R FNormalThe Parkwood HospitalComment on above:Performed By: #### CVDTBH #### [facility] [address] [address] [address] Eliecer DasPOINT OF CARE GLUCOSEon 96-42-2809Ikmipgj [Mass/Vol]269 mg/dL Critically wbaa59-010TbbProtestant Deaconess HospitalComment on above:Performed By: #### POCGLUC #### [facility] [address] [address] [address] Eliecer DasGlucose [Mass/Vol]100 mg/oQOalhpy10-901FxxProtestant Deaconess Hospital Comment on above:Performed By: #### BLDCX1 #### [facility] [address] [address] [address] Eliecer DasPOINT OF CARE GLUCOSEon 26-80-0862Xbodtxt [Mass/Vol]147 mg/dL Critically gmdi01-007XshProtestant Deaconess HospitalComment on above:Performed By: #### URCX #### [facility] [address] [address] [address] Eliecer DasGlucose [Mass/Vol]189 mg/dLCritically yoas09-230DczProtestant Deaconess HospitalComment on above:Performed By: #### POCGLUC #### [facility] [address] [address] [address] Eliecer DasGlucose [Mass/Vol]421 mg/dLCritically bghf64-862NcrProtestant Deaconess HospitalComment on above:Performed By: #### BLDCX2 #### [facility] [address] [place] [address] Dr. Eliecer DasGlucose [Mass/Vol]156 mg/dLCritically kvom71-520EzfProtestant Deaconess HospitalComment on above:Performed By: #### POCGLUC #### [facility] [address] [place] [address] Dr. Eliecer DasGlucose [Mass/Vol]111 mg/dLCritically cxxs82-676GemProtestant Deaconess HospitalComment on above:Performed By: #### BLDCX2 #### [facility] [address] [address] [address] Eliecer DasGlucose [Mass/Vol]209 mg/dLCritically svcv68-014CusProtestant Deaconess HospitalComment on above:Performed By: #### BLDCX1 #### [facility] [address] [address] [address] Eliecer DasGlucose [Mass/Vol]102 mg/sNOzossu98-143AubProtestant Deaconess Hospital Comment on above:Performed By: #### URCX #### [facility] [address] [address] [address] Eliecer DasCBTashi AUTO DIFFon 63-47-8241OLBW #0.1 103/ulNormal0.0-0.1The Parkwood HospitalComment on above:Performed By: #### BLDCX1 #### [facility] [address] [place] [address] Dr. Eliecer DasBasophils/100 WBC (Bld)1.4 %Normal0.2-2.0The [facility] Comment on above:Performed By: #### BLDCX1 #### [facility] [address] [place] [address] Dr. Eliecer Farias #0.1 103/ulNormal0.0-0.7The Parkwood HospitalComment on above: Performed By: #### BLDCX1 #### [facility] [address] [place] [address] Dr. Eliecer Salasosinophils/100 WBC (Bld)2.8 %Normal0.9-7.0The [facility] Comment on above:Performed By: #### BLDCX1 #### [facility] [address] [place] [address] Dr. Eliecer Salasrythrocyte distribution width (RBC) [Ratio]15.4 %Critically high 11.0-15.0The Parkwood HospitalComment on above:Performed By: #### BLDCX1 #### [facility] [address] [place] [address] Dr. Eliecer DasHematocrit (Bld) [Volume fraction]38.5 %Rhhhci01.0-48.0The Parkwood HospitalComment on above:Performed By: #### BLDCX1 #### [facility] [address] [place] [address] Dr. Eliecer DasHemoglobin (Bld) [Mass/Vol]14.1 g/zOKhkawi74.0-16.0The Parkwood HospitalComment on above:Performed By: #### BLDCX1 #### [facility] [address] [place] [address] Dr. Eliecer Swanson #0.02 10e3/ulNormal0.00-0.03The Parkwood HospitalComment on above:Performed By: #### BLDCX1 #### [facility] [address] [address] [address] Eliecer Swanson %0.4 %Normal0.0-0.5The [facility] HospitalComharper university hospital on above: Performed By: #### BLDCX1 #### [facility] [address] [place] [address] Dr. Eliecer Mccann #1.2 103/ulNormal1.2-3.8The [facility] HospitalComharper university hospital on above:Performed By: #### BLDCX1 #### [facility] [address] [place] [address] Dr. Eliecer Hardinghocytes/100 WBC (Bld)23.7 %Amfhrn03.5-60.0The [facility] on above:Performed By: #### BLDCX1 #### [facility] [address] [place] [address] Dr. Eliecer LukeUAL DIFF REQNONormalThe Parkwood HospitalComment on above: Performed By: #### BLDCX1 #### [facility] [address] [place] [address] Dr. Eliecer Rodriguez (RBC) [Entitic mass]33.5 urSmrsbt29.7-34.0The [facility] on above:Performed By: #### BLDCX1 #### [facility] [address] [place] [address] Dr. Eliecer Leonardo (RBC) [Mass/Vol]36.6 g/dLCritically high29.9-35.2The [facility] on above:Performed By: #### BLDCX1 #### [facility] [address] [place] [address] Dr. Eliecer Denson (RBC) [Entitic vol]91.4 hNZibron86.0-99.0The [facility] on above:Performed By: #### BLDCX1 #### [facility] [address] [place] [address] Dr. Eliecer Salas #0.5 103/ulNormal0.3-0.8The Parkwood HospitalComment on above:Performed By: #### BLDCX1 #### [facility] [address] [place] [address] Dr. Eliecer Stuartocytes/100 WBC (Bld)10.6 %Normal1.7-12.0The [facility] Comment on above:Performed By: #### BLDCX1 #### [facility] [address] [place] [address] Dr. Eliecer [place] #3.0 103/ulNormal1.4-6.5The [facility] By The Sea HospitalComment on above:Performed By: #### BLDCX1 #### [facility] [address] [place] [address] Dr. Eliecer Mckeonutrophils/100 WBC (Bld)61.1 %Iuyvhu78.0-75.0The [facility]wood HospitalComment on above:Performed By: #### BLDCX1 #### [facility] [address] [place] [address] Dr. Eleicer DasPlatelet mean volume (Bld) [Entitic vol]9.1 fLCritically low 9.5-13.5The Parkwood HospitalComment on above:Performed By: #### BLDCX1 #### [facility] [address] [place] [address] Dr. Eliecer GonsalesT278 103/jjWoximz521-644Ueu [facility] HospitalComment on above: Performed By: #### BLDCX1 #### [facility] [address] [place] [address] Dr. Eliecer RosenC4.21 106/ulNormal4.20-5.40The Parkwood HospitalComment on above:Performed By: #### BLDCX1 #### [facility] [address] [place] [address] Dr. Eliecer MccarthyBC5.0 103/ulNormal4.0-11.0The Parkwood HospitalComment on above: Performed By: #### BLDCX1 #### [facility] [address] [place] [address] Dr. Eliecer Pittvid-19 PCR (CVDTBH)on 72-52-4644THYZ-CoV-2 (COVID-19) RNA PELON+probe Ql (Unsp spec)Not detectedNormalNOT DETECTEDProtestant Deaconess Hospital Comment on above:Result Comment: When diagnostic [...] for this test is supported by the [place] of Health and Human Service's declaration that [...] longer be used).Performed By: #### CVDTBH #### [facility] [address] [place] [address] Dr. Eliecer Hall URINE PROFILEon 51-62-8428Fjgezoxuo Ql (U)NegativeNormal NEGATIVEProtestant Deaconess HospitalComment on above:Performed By: #### POCGLUC #### [facility] [address] [place] [address] Dr. Eliecer Ashton (U)CLEARNormalCLEARProtestant Deaconess HospitalComment on above: Performed By: #### POCGLUC #### [facility] [address] [place] [address] Dr. Eliecer Mendez (U)LT. YELLOWNormalYELLOWProtestant Deaconess HospitalComment on above:Performed By: #### POCGLUC #### [facility] [address] [place] [address] Dr. Eliecer Queen micrscopic examination will be performed if indicated. NormalThe Parkwood HospitalComment on above:Performed By: #### POCGLUC #### [facility] [address] [address] [address] Eliecer DasGlucose Ql (U)NegativeNormalNEGATIVEProtestant Deaconess HospitalComment on above:Performed By: #### POCGLUC #### [facility] [address] [address] [address] Eliecer DasHemoglobin Ql (U)NegativeNormalNEGHolzer Hospital Comment on above:Performed By: #### POCGLUC #### [facility] [address] [address] [address] Eliecer DasKetones Ql (U)NegativeNormalNEGATIVEProtestant Deaconess HospitalComment on above:Performed By: #### POCGLUC #### [facility] [address] [address] [address] Eliecer DasLEUKOCYTESNegativeNormalNEGATIVEProtestant Deaconess HospitalComment on above:Performed By: #### POCGLUC #### [facility] [address] [address] [address] Eliecer DasNitrite Ql (U)PositiveAbnormalNEGHolzer Hospital Comment on above:Performed By: #### POCGLUC #### [facility] [address] [address] [address] Eliecer DaspH (U)6.5 [pH]Normal5-9Protestant Deaconess HospitalComment on above: Performed By: #### POCGLUC #### [facility] [address] [address] [address] Eliecer DasSPEC GRAVITY1.519Suzgen9.005-<=1.025The [facility]wood HospitalComment on above:Performed By: #### POCGLUC #### [facility] [address] [address] [address] Eliecer DasUA PROTEINNegativeNormalNEGATIVE/ TRACEProtestant Deaconess Hospital Comment on above:Performed By: #### POCGLUC #### [facility] [address] [address] [address] Eliecer Crowe MICRO INDINDICATEDNoalThTrinity Health SystemComment on above: Performed By: #### POCGLUC #### [facility] [address] [place] [address] Dr. Eliecer Greenfield Qn (U)1.0 {Narinder'U}/dLNormal0.2 - 1.0The [facility] Hospitalment on above:Performed By: #### POCGLUC #### [facility] [address] [place] [address] Dr. Eliecer Henry AND B AGon 24-87-0281VLAFDFYXUOILUUniversity Hospitals TriPoint Medical CenterComment on above:Result Comment: Negative for Flu A protein angiten. Infection due to Flu A cannot be ruled out. FluA angiten in the sample may be below the detection limit of the test.Performed By: #### BLDCX2 #### [facility] [address] [place] [address] Dr. Eliecer LambertUBNEGCleveland Clinic Avon Hospital on above: Result Comment: Negative for Flu B protein antigen. Infection due to Flu B cannot be ruled out. FluB antigen in the sample may be below the detection limit of the test.Performed By: #### BLDCX2 #### [facility] [address] [place] [address] Dr. Eliecer Henry AGNegativeNormalNEGATIVE SEE COMMENTThe [facility] on above:Performed By: #### BLDCX2 #### [facility] [address] [place] [address] Dr. Eliecer Boston AGNegativeNormalNEGATIVE SEE COMMENTThe [facility] on above:Performed By: #### BLDCX2 #### [facility] [address] [place] [address] Dr. Eliecer DasPOINT [facility] GLUCOSEon 94-49-6695Tzxmbdc [Mass/Vol]170 mg/dL Critically mkoj07-185QgxMercy Health Clermont Hospital on above:Performed By: #### POCGLUC #### [facility] [address] [place] [address] Dr. Eliecer DasGlucose [Mass/Vol]94 mg/uMKazklb85-311YayProtestant Deaconess Hospital Comment on above:Performed By: #### POCGLUC #### [facility] [address] [address] [address] Eliecer DasPROKatia 14(COMP METB)on 19-67-4082Ijvxhtv [Mass/Vol]2.7 g/dL Critically low3.4-5.0The [facility]wood HospitalComment on above:Performed By: #### URCX #### [facility] [address] [address] [address] Eliecer DasAlbumin/Globulin [Mass ratio]0.6 {ratio}NormalThe Parkwood HospitalComment on above:Performed By: #### URCX #### [facility] [address] [place] [address] Dr. Eliecer Mallory [Catalytic activity/Vol]89 U/EGxpkyr38-955Hea [facility] HospitalComment on above:Performed By: #### URCX #### [facility] [address] [place] [address] Dr. Eliecer Conley [Catalytic activity/Vol]29 U/SKvtoec43-60Phs [facility] HospitalComment on above:Performed By: #### URCX #### [facility] [address] [place] [address] Dr. Eliecer Elias gap [Moles/Vol]11.8 mmol/LNormalThe [facility] Comment on above:Performed By: #### URCX #### [facility] [address] [address] [address] Eliecer DasAST [Catalytic activity/Vol]49 U/LCritically pcnd40-30Pmu [facility] HospitalComment on above:Performed By: #### URCX #### [facility] [address] [place] [address] Dr. Eliecer DasBilirubin [Mass/Vol]1.6 mg/dLCritically high0.2-1.0The [facility] HospitalComment on above:Performed By: #### URCX #### [facility] [address] [place] [address] Dr. Eliecer DasCalcium [Mass/Vol]9.1 mg/dLNormal8.5-10.1The [facility] Comment on above:Performed By: #### URCX #### [facility] [address] [place] [address] Dr. Eliecer DasChloride [Moles/Vol]109 mmol/LCritically pwnm64-046Wrw [facility] HospitalComment on above:Performed By: #### URCX #### [facility] [address] [place] [address] Dr. Eliecer DasCO2 [Moles/Vol]28.4 mmol/YNbwmwq48.0-32.0The [facility] Comment on above:Performed By: #### URCX #### [facility] [address] [place] [address] Dr. Eliecer DasCreatinine [Mass/Vol]0.75 mg/dLNormal0.55-1.02The [facility] HospitalComment on above:Performed By: #### URCX #### [facility] [address] [place] [address] Dr. Gonzáles ChangEGFR-AF MICRONESIAN>60Normal>=60The [facility] HospitalComment on above:Performed By: #### URCX #### [facility] [address] [place] [address] Dr. Eliecer SalasGFR-NON AF MICRONESIAN>60Normal>=60The [facility] HospitalComment on above:Performed By: #### URCX #### [facility] [address] [place] [address] Dr. Eliecer DasGlobulin (S) [Mass/Vol]4.4 g/dLNormalThe [facility] HospitalComment on above:Performed By: #### URCX #### [facility] [address] [place] [address] Dr. Eliecer DasGlucose [Mass/Vol]109 mg/dLCritically tfoh77-330Vef [facility] HospitalComment on above:Performed By: #### URCX #### [facility] [address] [place] [address] Dr. Eliecer DasPotassium [Moles/Vol]4.2 mmol/LNormal3.5-5.1The [facility] Comment on above:Performed By: #### URCX #### [facility] [address] [address] [address] Eliecer DasProtein [Mass/Vol]7.1 g/dLNormal6.4-8.2The [facility] Comment on above:Performed By: #### URCX #### [facility] [address] [address] [address] Eliecer DasSodium [Moles/Vol]145 mmol/KRuyncd842-305Mhu [facility] Comment on above:Performed By: #### URCX #### [facility] [address] [place] [address] Dr. Eliecer DasUrea nitrogen [Mass/Vol]11.0 mg/dLNormal7.0-18.0The [facility] HospitalComment on above:Performed By: #### URCX #### [facility] [address] [place] [address] Dr. Eliecer Juan nitrogen/Creatinine [Mass ratio]14.7 mg/mgNormalThTrinity Health SystemComment on above:Performed By: #### URCX #### [facility] [address] [place] [address] Dr. Eliecer Shahid, HIGH SENSITIVITYon 91-89-1804HNZPLZ97.7 pg/mLNormal 4.0-51.3The [facility] HospitalComment on above:Result Comment: CUT-OFF POINTS HAVE BEEN ESTABLISHED BASED ON THE FOURTH UNIVERSAL DEFINITIONS OF MYOCARDIAL INFARCTION. THE UPPER REFERENCE LIMIT (URL) OF TROPONIN, DEFINED THE 99TH PERCENTILE OF cTnI DISTRIBUTION IN A REFERENCE POPULATION, HAS BEEN CONFIRMED THE DECISION THRESHOLD FOR [place] DIAGNOSIS.Performed By: #### URCX #### [facility] [address] [place] [address] Dr. Eliecer Ontiveros MICROSCOPIC ONLYon 02-96-5299LBRPRKLZZHEWMLHUBddyocklFRKA SEENThe [facility] HospitalComment on above:Performed By: #### POCGLUC #### [facility] [address] [place] [address] Dr. Eliecre Mcgill identified Cx Nom (U)INDICATEDNoalThTrinity Health SystemComment on above:Performed By: #### POCGLUC #### [facility] [address] [place] [address] Dr. Eliecer DasCASTNINA SEENNormalNONE SEENProtestant Deaconess HospitalComment on above:Performed By: #### POCGLUC #### [facility] [address] [place] [address] Dr. Eliecer Nobleystals LM Nom (Urine sed)NONE SEENNormalNONE SEENProtestant Deaconess HospitalComharper university hospital on above:Performed By: #### POCGLUC #### [facility] [address] [place] [address] Dr. Gonzáles ChangEpithelial cells LM Ql (Urine sed)FEWAbnormalNONE SEEN /RAREThe [facility] HospitalComharper university hospital on above:Performed By: #### POCGLUC #### [facility] [address] [place] [address] Dr. Eliecer Velasquez SEENSatsumaNONE SEENProtestant Deaconess HospitalComharper university hospital on above:Performed By: #### POCGLUC #### [facility] [address] [place] [address] Dr. Eliecer DasIsjqaHAD1-8Fwhqwz9-3Zqg [facility] HospitalComharper university hospital on above:Performed By: #### POCGLUC #### [facility] [address] [place] [address] Dr. Eliecer DasWBC5-10AbnormalNONE SEENProtestant Deaconess HospitalComharper university hospital on above: Performed By: #### POCGLUC #### [facility] [address] [place] [address] Dr. Eliecer DasXR CHEST 1 Von 68-52-1728IA CHEST 1 VEXAM: XR CHEST 1 V HISTORY: COUGH COMPARISON: 03/01/2022 TECHNIQUE: Single view of the chest. FINDINGS: Left basilar opacities obstructing the left hemidiaphragm. The heart is enlarged. No right-sided pleural effusion. No pneumothorax. Atherosclerotic calcifications of the aorta. IMPRESSION: Left basilar atelectasis/consolidation. Electronically authenticated by: MARCO LEROY Date: 2022-10-13 12:34[facility] ClinicA1C HEMOGLOBINon 39-38-2615LjP0r (Bld) [Mass fraction]5.4 % [employer] Other HbA1c (Bld) [Mass fraction]on 20-10-1765C5X HEMOGLOBIN [employer] Other Urinalysis - AUTOMATEDon 38-45-5599Lkucidppmv (U)CLEAR [employer] Other Bilirubin Ql (U)SMALLJunar Other Color (U)YELLOWJunar Other Glucose Ql (U)NegativeJunar Other Hemoglobin Ql (U)LARGEJunar Other Ketones Ql (U)TRACEJunar Other Leukocyte esterase Test strip Ql (U)TRACEJunar Other Nitrite Ql (U)PositiveJunar Other pH (U)5.5 [pH][employer] Other Protein Ql (U)NegativeJunar Other Specific gravity (U) [Rel density]>=1.030NoP[employer] Other Urobilinogen (U) [Mass/Vol]1.0 mg/dLJunar Other Urinalysis - AUTOMATEDJunar Other US thyroidon 98-13-3071SB thyroidTRUMBULL [facility] Main [address] [address] Ultrasound Report Signed Patient: Salma Quan MR#: [id number] 468 : 1935 Acct:[id number] Age/Sex: 87 / F ADM Date: 06/15/22 [...] Franki Chris M.D.06/15/2022 4:03 PM Dictation Location: [place] [address] Tech: Cindy Araya Transcribed By: [facility] 06/15/22 1603 Dictated By: Franki Chris DO 06/15/22 1601 Signed By: 06/15/22 [facility]CT [facility] conon 06-08-2022 CT chest [facility] [place] [address] CT Scan Report Signed Patient: Salma Quan MR#: [id number] 468 : 1935 Acct:[id number] Age/Sex: 87 / F ADM Date: 06/08/22 Loc: CT Room: Type: [facility] CLI Attending Dr: Brendon Castelan MD [...] Cameron Jr., D.O.06/08/2022 3:17 PM Dictation Location: [facility]- Transcribed By: [facility] 06/08/22 1517 Dictated By: Christiano Cameron Jr, DO 06/08/22 1514 Signed By: 06/08/22 [facility] HospitalARS-CoV-2 (COVID-19) RNA PELON+probe Ql (Unsp spec)cough. History of [place]North [place] [employer] Other ct chest wo [facility] [employer] Other CT chest wo conFRMHolzer Hospital [employer] Other CT chest wo [id number] [facility] [employer] Other [place] chest [place] [address] [employer] Other ct chest wo conCT Scan ReportNorth Las [place] [employer] Other ct chest wo conSignedNorth Las Vegas [employer] Other ct chest wo conPatient: Salma Quan MR#: [id number] [facility] myOrder Other CT chest wo [id number] [employer] Other ct chest wo conDOB: 1935 Acct:[id number] [employer] Other ct chest wo conAge/Sex: 87 / F ADM Date: 06/08/22[facility] Other ct chest wo conLoc: CT Room: Type: [facility] [employer] Other ct chest wo conAttending Dr: Brendon Castelan MDSAN [employer] Other ct chest wo conCopies to: Brendon Castelan MDNorth [place] [employer] Other ct chest wo conOrdering Provider: Brendon Castelan MDS[employer] Other ct chest wo conDate of Service: 06/08/22[place] [employer] Other ct chest wo conAccession #: ([id number]) CT/CT chest wo con: Cough;Edema extremities;CardiomegalyNmercy hospital st. louis [employer] Other ct chest wo conCT CHEST WITHOUT IV CONTRAST:Junar Other ct chest wo conCLINICAL HISTORY: Shortness of breath with exertion. Bilateral lower extremity swelling withNorth [place] [employer] Other ct chest wo conCOMPARISON: Chest 05/26/2022[place] [employer] Other ct chest wo conTECHNIQUE: Spiral images were obtained through the chest without IV contrast. This CT exam wasNorth [place] [employer] Other ct chest wo conperformed using one or more following dose reduction techniques: Automated exposure control,[employer] Other ct chest wo conadjustment of the mA and/or kV according to patient size, or use of iterative reconstructionNorth [place] [employer] Other ct chest wo contechnique.Junar Other ct chest wo conFINDINGS:Junar Other ct chest wo conMediastinum:Lobular appearing thyroid gland with a punctate calcification. Thoracic aorta appearsNolee[facility] [employer] Other ct chest wo connormal in caliber. Pulmonary trunk is nondilated. No pericardial effusion. No lymphadenopathy.[employer] Other ct chest wo conThe esophagus is grossly unremarkable. [employer] Other ct chest wo conLungs:Peripheral fibrotic changes without honeycombing. No focal consolidation, pneumothorax [facility] [employer] Other ct chest wo conpleural effusion. Trachea and distal airways appear patent. No suspicious lung nodule.[employer] Other ct chest wo conAbd:No acute findings.[employer] Other ct chest wo conSoft tissues/Bones: Visualized soft tissues surrounding the chest wall demonstrate no acuteNolee's summit hospital [employer] Other ct chest wo confindings. Osseous structures demonstrate degenerative change.[employer] Other ct chest wo conORDER #: [id number] CT/CT chest wo con [employer] Other ct chest wo conIMPRESSION:Jun[employer] Other ct chest wo conPeripheral fibrotic changes without honeycombing. No acute process is seen.[employer] Other ct chest wo conLobular appearing thyroid gland with punctate calcification. This can be further evaluated byNorth [place] [employer] Other ct chest wo conultrasound.Jun[employer] Other ct chest wo conImpression dictated by: Christiano Cameron Jr., D.OKelly06/08/2022 3:17 [facility] [employer] Other ct chest wo conDictation Location: [id number] [employer] Other CT chest wo conTranscribed By: PWS 06/08/[address] [place] [address] [address] chest wo conDictated By: Christiano Cameron Jr, DO 06/08/[address] [place] [address] chest wo conSigned By:[facility] myOrder Other CT chest wo con06/08/[address] [place] [address] [employer] Other ECH echo transthoracicon 28-67-5632XKL echo transthoracicTRUMBULL REGIONAL MEDICAL CENTER Main [place] [address] [place] [address] Echocardiogram Signed Patient: Salma Quan MR#: [id number] 468 : 1935 Acct:[id number] Age/Sex: 87 / F ADM Date: 06/08/22 Loc: CT Room: Type: [facility] Attending Dr: Brendon Castelan MD Ordering Provider: Brenodn Castelan MD Date of Service: 06/08/22/ ECH/ECH [...] 1423 Signed By: Matthew Jacob MD 06/08/22 1549NormalBerger HospitalA1C HEMOGLOBINon 19-21-9444UrY2h (Bld) [Mass fraction]5.4 %Jun[employer] Other HbA1c (Bld) [Mass fraction]on 04-01-4172L4O HEMOGLOBIN [facility] [employer] Other Albumin [Mass/volume] in Serum or PlasmaOrdered By: Brendon Castelan on 26-90-2991Ikdshjj [Mass/Vol]3.0 g/dL3.2-5.5FKeenan Private HospitalBasophils Auto (Bld) [#/Vol]Ordered By: Brendon Castelan on 94-73-0451Qtdogewqd (Bld) [#/Vol]0.1 10*3/uL0.0-0.2FKeenan Private HospitalBasophils/100 WBC Auto (Bld)Ordered By: Brendon Castelan on 36-97-8948Jnuphprog/100 WBC (Bld)1.2 %.Berger HospitalBlood hemoglobin measurement (mass/volume)Ordered By: Brendon Castelan on 05-17-2022 Hemoglobin (Bld) [Mass/Vol]14.4 g/dL11.8-15.4FKeenan Private Hospital Blood leukocytes automated count (number/volume)Ordered By: Brendon Castelan on 66-85-1403DIO (Bld) [#/Vol]6.3 10*3/uL4.5-11.0[facility] Creatinine and Glomerular filtration rate.predicted panel (S/P/Bld)Ordered By: Brendon Castelan on 84-92-2130Ftwlstgqmd [Mass/Vol]0.90 mg/dL0.44-1.03Berger HospitalEosinophils Auto (Bld) [#/Vol]Ordered By: Brendon Castelan on 62-80-8027Izgireabuej (Bld) [#/Vol]0.2 10*3/uL0.0-0.45Berger HospitalEosinophils/100 WBC Auto (Bld)Ordered By: Brendon Castelan on 91-28-6497Bojcsptcfey/100 WBC (Bld)3.5 %.Berger HospitalErythrocyte distribution width Auto (RBC) [Ratio]Ordered By: Brendon Castelan on 42-15-4190Dhwxvvcrsqt distribution width (RBC) [Ratio]15.4 %11.9-15.3FKeenan Private HospitalEstimated glomerular filtration rate (GFR) non- AmericanOrdered By: Brendon Castelan on 75-17-6605PML/1.73 sq M.predicted among non-blacks MDRD (S/P/Bld) [Vol rate/Area]60 mL/MinBerger HospitalGlobulin Calc (S) [Mass/Vol]Ordered By: Brendon Castelan on 50-30-3153Uklublnw (S) [Mass/Vol]3.7 g/dLBerger Hospital Hematocrit Auto (Bld) [Volume fraction]Ordered By: Brendon Castelan on 06-33-4809Wmqryggygr (Bld) [Volume fraction]43.9 %34.0-46.4FKeenan Private HospitalLaboratory - Hematology and Cell countsOrdered By: Brendon Castelan on 80-13-9666Pjhrbgokk RBC/100 WBC (Bld) [Ratio]0.1 %0-0.5FKeenan Private HospitalLymphocytes Auto (Bld) [#/Vol]Ordered By: Brendon Castelan on 01-73-8478Ydkgslldaku (Bld) [#/Vol]1.9 10*3/uL1.00-4.8Berger HospitalLymphocytes/100 WBC Auto (Bld)Ordered By: Brendon Castelan on 27-10-3905Jmzscoskymt/100 WBC (Bld)29.5 %.Berger HospitalMCH Auto (RBC) [Entitic mass]Ordered By: Brendon Castelan on 59-34-8725LQJ (RBC) [Entitic mass]30.3 pg24.7-34.3FKeenan Private HospitalMCHC Auto (RBC) [Mass/Vol]Ordered By: Brendon Castelan on 04-19-3643VAEG (RBC) [Mass/Vol]32.8 g/dL32.0-35.0Berger HospitalMCV Auto (RBC) [Entitic vol]Ordered By: Brendon Castelan on 45-96-9202REY (RBC) [Entitic vol]92.4 vS51-233LagxpoicvBerger HospitalMonocytes Auto (Bld) [#/Vol] Ordered By: Brendon Castelan on 51-35-9273Ygzsfozyk (Bld) [#/Vol]0.7 10*3/uL 0.0-0.8Berger HospitalMonocytes/100 WBC Auto (Bld)Ordered By: Brendon Castelan on 27-84-7573Ycxjveblj/100 WBC (Bld)10.8 %.Berger HospitalNeutrophils Auto (Bld) [#/Vol]Ordered By: Brendon Castelan on 92-26-4450Zoccjjvcgxf (Bld) [#/Vol]3.5 10*3/uL1.8-7.7FKeenan Private HospitalNeutrophils/100 WBC Auto (Bld)Ordered By: Brendon Castelan on 05-17-2022 Neutrophils/100 WBC (Bld)55.0 %.Berger HospitalNo Panel InformationOrdered By: Brendon Castelan on 68-11-1481Jammnbxtu GFR ()> 60 mL/MinBerger HospitalComment on above:GFR estimated reference range: According to KDOQI guidelines, <60 ml/min/1.73m2 is sufficient todiagnose a patient with chronic kidney disease.Pharmacy Creatinine Clearance (ChemN/[facility] Geneva Medical CenterPlatelet mean volume Auto (Bld) [Entitic vol]Ordered By: Brendon Castelan on 78-69-6081Njoinrqv mean volume (Bld) [Entitic vol]8.1 fL6.3-10.7FKeenan Private Hospital Platelets Auto (Bld) [#/Vol]Ordered By: Brendon Castelan on 99-58-8750Fkvjbwika (Bld) [#/Vol]371 10*3/eF812-820PjlxtwtviBerger HospitalProtein [Mass/volume] in Serum or PlasmaOrdered By: Brendon Castelan on 05-17-2022 Protein [Mass/Vol]6.7 g/dL6.1-7.9Berger HospitalRBC Auto (Bld) [#/Vol]Ordered By: Brendon Castelan on 06-12-9921UTY (Bld) [#/Vol]4.75 10*6/uL 3.60-5.00[facility] Hospital - Cantonerum or plasma alanine aminotransferase measurement without P-5'-P (enzymatic activiOrdered By: Brendon Castelan on 26-92-6909XJT No additional P-5'-P [Catalytic activity/Vol]26 U/L 10-60[facility] - Cantonerum or plasma albumin/globulin mass ratioOrdered By: Brendon Castelan on 40-73-8848Gxaassf/Globulin [Mass ratio]0.8 {ratio}[facility] - Cantonerum or plasma alkaline phosphatase measurement (enzymatic activity/volume)Ordered By: Brendon Castelan on 72-86-0424DIF [Catalytic activity/Vol]67 U/Q26-43PvimdyyykSelect Medical Specialty Hospital - Cantonerum or plasma anion gap determinationOrdered By: Brendon Castelan on 83-37-3442Zzdov gap [Moles/Vol]11.1 mmol/L6.0-15.0[facility] - Cantonerum or plasma aspartate aminotransferase measurement (enzymatic activity/volume)Ordered By: Brendon Castelan on 35-27-7361WDD [Catalytic activity/Vol]43 U/W74-47WhswcpxdlSelect Medical Specialty Hospital - Cantonerum or plasma calcium measurement (mass/volume)Ordered By: Brendon Castelan on 50-89-9459Yezdgvb [Mass/Vol]9.8 mg/dL8.2-10.2FTrinity Health System Twin City Medical Centererum or plasma chloride measurement (moles/volume)Ordered By: Brendon Castelan on 05-17-2022 Chloride [Moles/Vol]103 mmol/I81-359SkypodfswSelect Medical Specialty Hospital - Cantonerum or plasma glucose measurement (mass/volume)Ordered By: Brendon Castelan on 05-03-2401Tkooygi [Mass/Vol]140 mg/oX25-848ImyqqhucwBerger Hospital Comment on above:ADA recommended reference range Random Glucose Reference Range is dependent on time and content of last meal. Glucose of more than 200 mg/dL in a nonstressed, ambulatory subject supports the diagnosis of Diabetes Mellitus.Serum or plasma potassium measurement (moles/volume)Ordered By: Brendon Castelan on 61-25-2115Amwfdbfpf [Moles/Vol] 4.5 mmol/L3.5-5.1FTrinity Health System Twin City Medical Centererum or plasma sodium measurement (moles/volume)Ordered By: Brendon Castelan on 84-90-3446Tcrbaf [Moles/Vol]139 mmol/J472-312JlhseuwpgSelect Medical Specialty Hospital - Cantonerum or plasma total bilirubin measurement (mass/volume)Ordered By: Brendon Castelan on 21-21-9025Hvdztsust [Mass/Vol]1.5 mg/dL0.3-1.2FKeenan Private Hospital Comment on above:Samples from patients who have taken Naproxen have shown spurious elevation in Total Bilirubin levels. A metabolite of Naproxen, O- desmethylnaproxen, has been shown to interfere with the Jeanine-Ximena method for measuring Total Bilirubin.Serum or plasma total carbon dioxide measurement (moles/volume)Ordered By: Brendon Castlean on 11-57-8687HQ7 [Moles/Vol]29.4 mmol/L22.0-30.0[facility] - Cantonerum or plasma urea nitrogen measurement (mass/volume)Ordered By: Brendon Castelan on 21-05-3816Zchv nitrogen [Mass/Vol]12 mg/dL9-23Berger HospitalCBC AUTO DIFFon 50-49-8762NKYL #0.1 103/ulNormal0.0-0.1The Parkwood HospitalComment on above: Performed By: #### URCX #### [facility] [address] [address] [address] Eliecer DasBasophils/100 WBC (Bld)0.8 %Normal0.2-2.0The [facility] Comment on above:Performed By: #### URCX #### [facility] [address] [place] [address] [address] Eliecer Farias #0.0 103/ulNormal0.0-0.7The Parkwood HospitalComment on above: Performed By: #### URCX #### [facility] [address] [address] [address] Eliecer Salasosinophils/100 WBC (Bld)0.1 %Critically low0.9-7.0The Parkwood HospitalComment on above:Performed By: #### URCX #### [facility] [address] [address] [address] Eliecer Salasrythrocyte distribution width (RBC) [Ratio]13.4 %Umikqd63.0-15.0 The Parkwood HospitalComment on above:Performed By: #### URCX #### [facility] [address] [place] [address] Dr. Eliecer DasHematocrit (Bld) [Volume fraction]42.9 %Xqkzgi10.0-48.0The [facility]wood HospitalComment on above:Performed By: #### URCX #### [facility] [address] [place] [address] Dr. Eliecer DasHemoglobin (Bld) [Mass/Vol]14.3 g/fLAfvusf56.0-16.0The Parkwood HospitalComment on above:Performed By: #### URCX #### [facility] [address] [place] [address] Dr. Eliecer Swanson #0.07 10e3/ulCritically high0.00-0.03The [facility] Comment on above:Performed By: #### URCX #### [facility] [address] [place] [address] Dr. Eliecer Swanson %0.8 %Critically high0.0-0.5The Parkwood HospitalComment on above:Performed By: #### URCX #### [facility] [address] [place] [address] Dr. Eliecer HardingH #1.3 103/ulNormal1.2-3.8The Parkwood HospitalComment on above:Performed By: #### URCX #### [facility] [address] [place] [address] Dr. Eliecer Jonesmphocytes/100 WBC (Bld)14.4 %Critically low20.5-60.0The Parkwood HospitalComment on above:Performed By: #### URCX #### [facility] [address] [place] [address] Dr. Eliecer LukeUAL DIFF REQNONormalThe Parkwood HospitalComment on above: Performed By: #### URCX #### [facility] [address] [place] [address] Dr. Eliecer LeonardoH (RBC) [Entitic mass]31.2 jcSqyomq08.7-34.0The Parkwood HospitalComment on above:Performed By: #### URCX #### [facility] [address] [place] [address] Dr. Eliecer Leonardo (RBC) [Mass/Vol]33.3 g/cKGvhpjh74.9-35.2The [facility]wood HospitalComment on above:Performed By: #### URCX #### [facility] [address] [place] [address] Dr. Eliecer Denson (RBC) [Entitic vol]93.7 kBNrbtrg39.0-99.0The [facility]wood HospitalComment on above:Performed By: #### URCX #### [facility] [address] [place] [address] Dr. Eliecer Salas #1.0 103/ulCritically high0.3-0.8ThTrinity Health System Comment on above:Performed By: #### URCX #### [facility] [address] [place] [address] Dr. Eliecer Stuartocytes/100 WBC (Bld)10.4 %Normal1.7-12.0[facility] Comment on above:Performed By: #### URCX #### [facility] [address] [place] [address] Dr. Eliecer [place] #6.8 103/ulCritically high1.4-6.5ThTrinity Health System Comment on above:Performed By: #### URCX #### [facility] [address] [place] [address] Dr. Eliecer Palomoophils/100 WBC (Bld)73.5 %Ofmsxo30.0-75.0[facility]aconess HospitalComment on above:Performed By: #### URCX #### [facility] [address] [place] [address] Dr. Eliecer Shooklet mean volume (Bld) [Entitic vol]9.0 fLCritically low 9.5-13.5The [facility] HospitalComment on above:Performed By: #### URCX #### [facility] [address] [place] [address] Dr. Eliecer DasPLT230 103/kpTlkqfr495-056Zjc [facility] HospitalComment on above: Performed By: #### URCX #### [facility] [address] [place] [address] Dr. Eliecer DasRBC4.58 106/ulNormal4.20-5.40The [facility]wood HospitalComment on above:Performed By: #### URCX #### [facility] [address] [place] [address] Dr. Eliecer DasWBC9.2 103/ulNormal4.0-11.0The [facility] HospitalComment on above: Performed By: #### URCX #### [facility] [address] [place] [address] Dr. Eliecer DasCUJAILENE BLOODon 28-98-3443Qjghimdxnhx examination of blood, cultureCulture Observations: No growth at 5 days.NormalThe Parkwood HospitalComment on above:Performed By: #### BLDCX1 #### [facility] [address] [place] [address] Dr. Eliecer DasLACTATE/LACTIC ACIDon 67-73-6275Fryqhpl [Moles/Vol]2.1 mmol/L Critically high0.4-1.9The [facility] HospitalComment on above:Performed By: #### POCGLUC #### [facility] [address] [place] [address] Dr. Eliecer DasLactate [Moles/Vol]2.3 mmol/LCritically high0.4-1.9The [facility] Hospitalment on above:Performed By: #### URCX #### [facility] [address] [place] [address] Dr. Eliecer DasLactate [Moles/Vol]2.2 mmol/LCritically high0.4-1.9The [facility] HospitalComment on above:Performed By: #### BLDCX1 #### [facility] [address] [place] [address] Dr. Eliecer DasPOINT OF CARE GLUCOSEon 35-48-0622Qhvxswc [Mass/Vol]123 mg/dL Critically lvoy80-485Vcb [facility] HospitalComment on above:Performed By: #### POCGLUC #### [facility] [address] [place] [address] Dr. Eliecer DasGlucose [Mass/Vol]114 mg/dLCritically rndk64-632Bup [facility] HospitalComment on above:Performed By: #### BLDCX1 #### [facility] [address] [place] [address] Dr. Eliecer Maldonado 14(COMP METB)on 79-95-3016Ngxpyvf [Mass/Vol]2.6 g/dL Critically low3.4-5.0The [facility] HospitalComment on above:Performed By: #### BLDCX2 #### [facility] [address] [place] [address] Dr. Eliecer DasAlbumin/Globulin [Mass ratio]0.6 {ratio}NormalThe Parkwood HospitalComment on above:Performed By: #### BLDCX2 #### [facility] [address] [place] [address] Dr. Eliecer Mallory [Catalytic activity/Vol]67 U/WYbvvsl83-229Brc [facility] HospitalComment on above:Performed By: #### BLDCX2 #### [facility] [address] [place] [address] Dr. Eliecer Conley [Catalytic activity/Vol]37 U/RWyyand63-28Sqa [facility] HospitalComment on above:Performed By: #### BLDCX2 #### [facility] [address] [place] [address] Dr. Eliecer Elias gap [Moles/Vol]10.8 mmol/LNormalThe [facility] on above:Performed By: #### BLDCX2 #### [facility] [address] [place], [place] [address] Dr. Eliecer DasAST [Catalytic activity/Vol]60 U/LCritically dbbu94-24Ocy [facility] HospitalComment on above:Performed By: #### BLDCX2 #### [facility] [address] [address] [address] Eliecer DasBilirubin [Mass/Vol]1.6 mg/dLCritically high0.2-1.0The [facility] HospitalComment on above:Performed By: #### BLDCX2 #### [facility] [address] [place] [address] Dr. Eliecer DasCalcium [Mass/Vol]8.5 mg/dLNormal8.5-10.1The [facility] Comment on above:Performed By: #### BLDCX2 #### [facility] [address] [place] [address] Dr. Eliecer DasChloride [Moles/Vol]103 mmol/UDzncdr43-470Jsi [facility] Comment on above:Performed By: #### BLDCX2 #### [facility] [address] [place] [address] Dr. Eliecer DasCO2 [Moles/Vol]26.7 mmol/DBtghal32.0-32.0The [facility] Comment on above:Performed By: #### BLDCX2 #### [facility] [address] [place] [address] Dr. Eliecer DasCreatinine [Mass/Vol]0.83 mg/dLNormal0.55-1.02The [facility] HospitalComment on above:Performed By: #### BLDCX2 #### [facility] [address] [place] [address] Dr. Gonzáles ChangEGFR-AF MICRONESIAN>60Normal>=60The [facility] HospitalComment on above:Performed By: #### BLDCX2 #### [facility] [address] [place] [address] Dr. Eliecer SalasGFR-NON AF MICRONESIAN>60Normal>=60The [facility] HospitalComment on above:Performed By: #### BLDCX2 #### [facility] [address] [address] [address] Eliecer DasGlobulin (S) [Mass/Vol]4.4 g/dLNormMadison HealthComment on above:Performed By: #### BLDCX2 #### [facility] [address] [address] [address] Eliecer DasGlucose [Mass/Vol]122 mg/dLCritically gwxq93-835Yxr [facility] HospitalComment on above:Performed By: #### BLDCX2 #### [facility] [address] [address] [address] Eliecer DasPotassium [Moles/Vol]4.5 mmol/LNormal3.5-5.1The [facility] Comment on above:Performed By: #### BLDCX2 #### [facility] [address] [place] [address] Dr. Eliecer DasProtein [Mass/Vol]7.0 g/dLNormal6.4-8.2The [facility] Comment on above:Performed By: #### BLDCX2 #### [facility] [address] [address] [address] Eliecer DasSodium [Moles/Vol]136 mmol/OCxhibm499-750Khv [facility] Comment on above:Performed By: #### BLDCX2 #### [facility] [address] [place] [address] Dr. Eliecer DasUrea nitrogen [Mass/Vol]12.0 mg/dLNormal7.0-18.0The [facility] HospitalComment on above:Performed By: #### BLDCX2 #### [facility] [address] [place] [address] Dr. Eliecer DasUrea nitrogen/Creatinine [Mass ratio]14.5 mg/mgNoAdena Pike Medical CenterComment on above:Performed By: #### BLDCX2 #### [facility] [address] [place] [address] Dr. Eliecer DasAlbumin [Mass/Vol]2.7 g/dLCritically low3.4-5.0The [facility] HospitalComment on above:Performed By: #### POCGLUC #### [facility] [address] [address] [address] Eliecer DasAlbumin/Globulin [Mass ratio]0.6 {ratio}NormalThe [facility]wood HospitalComment on above:Performed By: #### POCGLUC #### [facility] [address] [address] [address] Eliecer AndrewsP [Catalytic activity/Vol]69 U/GOzcxmh98-167Nrg [facility] HospitalComment on above:Performed By: #### POCGLUC #### [facility] [address] [address] [address] Eliecer AndrewsT [Catalytic activity/Vol]45 U/GWhdhjf62-73Erj [facility] on above:Performed By: #### POCGLUC #### [facility] [address] [address] [address] Eliecer Lynchon gap [Moles/Vol]13.5 mmol/LNormalThe [facility] Comment on above:Performed By: #### POCGLUC #### [facility] [address] [address] [address] Eliecer DasAST [Catalytic activity/Vol]64 U/LCritically fhpo21-98Xbr [facility] on above:Performed By: #### POCGLUC #### [facility] [address] [address] [address] Eliecer DasBilirubin [Mass/Vol]1.6 mg/dLCritically high0.2-1.0The [facility] HospitalComment on above:Performed By: #### POCGLUC #### [facility] [address] [address] [address] Eliecer DasCalcium [Mass/Vol]9.0 mg/dLNormal8.5-10.1[facility] Comment on above:Performed By: #### POCGLUC #### [facility] [address] [address] [address] Eliecer DasChloride [Moles/Vol]101 mmol/OUunxeh65-378Xfn [facility] Comment on above:Performed By: #### POCGLUC #### [facility] [address] [address] [address] Eliecer DasCO2 [Moles/Vol]25.1 mmol/LFpeavv48.0-32.0The [facility] Comment on above:Performed By: #### POCGLUC #### [facility] [address] [address] [address] Eliecer DasCreatinine [Mass/Vol]0.89 mg/dLNormal0.55-1.02The Parkwood HospitalComment on above:Performed By: #### POCGLUC #### [facility] [address] [address] [address] Gonzáles ChangEGFR-AF MICRONESIAN>60Normal>=60The Parkwood HospitalComment on above:Performed By: #### POCGLUC #### [facility] [address] [address] [address] Eliecer SalasGFR-NON AF DWOQQEIP01 mL/min/1.46x8Paxdra>=60The Parkwood HospitalComment on above:Performed By: #### POCGLUC #### [facility] [address] [address] [address] Eliecer DasGlobulin (S) [Mass/Vol]4.4 g/dLNormalThe Parkwood HospitalComment on above:Performed By: #### POCGLUC #### [facility] [address] [address] [address] Eliecer DasGlucose [Mass/Vol]132 mg/dLCritically tduk00-573Jgi Park[facility] HospitalComment on above:Performed By: #### POCGLUC #### [facility] [address] [address] [address] Eliecer DasPotassium [Moles/Vol]4.6 mmol/LNormal3.5-5.1The [facility] Comment on above:Performed By: #### POCGLUC #### [facility] [address] [address] [address] Eliecer DasProtein [Mass/Vol]7.1 g/dLNormal6.4-8.2The [facility] Comment on above:Performed By: #### POCGLUC #### [facility] [address] [address] [address] Eliecer DasSodium [Moles/Vol]135 mmol/LCritically ysr325-684Xbm Park[facility] HospitalComment on above:Performed By: #### POCGLUC #### [facility] [address] [address] [address] Eliecer Juan nitrogen [Mass/Vol]12.0 mg/dLNormal7.0-18.0The [facility]wood HospitalComment on above:Performed By: #### POCGLUC #### [facility] [address] [address] [address] Eliecer DasUrea nitrogen/Creatinine [Mass ratio]13.5 mg/mgNormalThe Parkwood HospitalComment on above:Performed By: #### POCGLUC #### [facility] [address] [place] [address] Dr. Eliecer DasRESPIRATORY PANEL PLUSon 80-23-4367QzwxmemjswKjo detectedNormal NOT DETECTEDThe Parkwood HospitalComment on above:Performed By: #### CVDTBH #### [facility] [address] [address] [address] Eliecer Maldonado ParapertusisNot detectedNormalNOT DETECTEDThe [facility] HospitalComment on above:Performed By: #### CVDTBH #### [facility] [address] [address] [address] Eliecer Maldonado PertussisNot detectedNormalNOT DETECTEDThe [facility] on above:Performed By: #### CVDTBH #### [facility] [address] [address] [address] Eliecer DasChlamydia PneumoniaeNot detectedNormalNOT DETECTEDThe [facility] HospitalComment on above:Performed By: #### CVDTBH #### [facility] [address] [address] [address] Eliecer DasCoronavirus 229ENot detectedNormalNOT DETECTEDThe [facility] HospitalComment on above:Performed By: #### CVDTBH #### [facility] [address] [address] [address] Eliecer Pittronavirus GDQ1Ytq detectedNormalNOT DETECTEDThe [facility]wood HospitalComment on above:Performed By: #### CVDTBH #### [facility] [address] [address] [address] Eliecer DasCoronavirus MN14Wdm detectedNormalNOT DETECTEDThe [facility] HospitalComment on above:Performed By: #### CVDTBH #### [facility] [address] [address] [address] Eliecer DasCoronavirus VM34Sdg detectedNormalNOT DETECTEDThe [facility] HospitalComment on above:Performed By: #### CVDTBH #### [facility] [address] [address] [address] Eliecer Cardozo A H1 2009Not detectedNormalNOT DETECTEDThe [facility] HospitalComharper [facility] on above:Performed By: #### CVDTBH #### [facility] [address] [address] [address] Eliecer Cardozo A H3Not detectedNormalNOT DETECTEDThe [facility] Comment on above:Performed By: #### CVDTBH #### [facility] [address] [address] [address] Eliecer Cardozo BNot detectedNormalNOT DETECTEDProtestant [facility] Comment on above:Performed By: #### CVDTBH #### [facility] [address] [address] [address] Eliecer SotoapneumovirusNot detectedNormalNOT DETECTEDThe [facility] HospitalComment on above:Performed By: #### CVDTBH #### [facility] [address] [address] [address] Eliecer Conley. PneumoniaeNot detectedNormalNOT DETECTEDThe [facility] HospitalComharper university hospital on above:Performed By: #### CVDTBH #### [facility] [address] [address] [address] Eliecer Denisefluenza 1Not detectedNormalNOT DETECTEDThe [facility] HospitalComment on above:Performed By: #### CVDTBH #### [facility] [address] [place] [address] Dr. Eliecer aTpia 2Not detectedNormalNOT DETECTEDThe [facility] HospitalComment on above:Performed By: #### CVDTBH #### [facility] [address] [place] [address] Dr. Eliecer Tapia 3DetectedAbnormalNOT DETECTEDThe [facility] Comment on above:Performed By: #### CVDTBH #### [facility] [address] [place] [address] Dr. Eliecer Tapia 4Not detectedNormalNOT DETECTEDThe [facility] HospitalComment on above:Performed By: #### CVDTBH #### [facility] [address] [place] [address] Dr. Eliecer DasRhino/EnterovirusNot detectedNormalNOT DETECTEDThe [facility] HospitalComharper [facility] hospital on above:Performed By: #### CVDTBH #### [facility] [address] [place] [address] Dr. Eliecer Gonsales Header 1RESPIRATORY PANEL: VIRUSESMarietta [facility]opathic [facility] Comment on above:Performed By: #### CVDTBH #### [facility] [address] [place] [address] Dr. Eliecer Gonsales Header 2RESPIRATORY PANEL: BACTERIANoAdena Pike Medical CenterComment on above:Performed By: #### CVDTBH #### [facility] [address] [place] [address] Dr. Eliecer CarrilloVNot detectedNormalNOT DETECTEDThe [facility] HospitalComment on above:Performed By: #### CVDTBH #### [facility] [address] [place] [address] Dr. Eliecer Cruz-CoV-2 (COVID-19) RNA PELON+probe Ql (Unsp spec)Not detected NormalNOT DETECTEDThe Parkwood HospitalComment on above:Performed By: #### CVDTBH #### [facility] [address] [place] [address] Dr. Eliecer Shahid, [facility] SENSITIVITY 36-04-5650FUJRHY38.2 pg/mLNormal 4.0-51.3The Parkwood HospitalComment on above:Result Comment: CUT-OFF POINTS HAVE BEEN ESTABLISHED BASED ON THE FOURTH UNIVERSAL DEFINITIONS OF MYOCARDIAL INFARCTION. THE UPPER REFERENCE LIMIT (URL) OF TROPONIN, DEFINED THE 99TH PERCENTILE OF cTnI DISTRIBUTION IN A REFERENCE POPULATION, HAS BEEN CONFIRMED THE DECISION THRESHOLD FOR [place] DIAGNOSIS.Performed By: #### BLDCX2 #### [facility] [address] [place], [place] [id number] Dr. Eliecer Meyer CSPINE WO CONon [id number] [facility] [place] WO CONEXAMINATION: CT CSPINE WO CON HISTORY: [...] Electronically authenticated by: BOBBY JUAREZ Date: 2022-03-01 21:48[facility] HEAD WO CONon [id number] HEAD WO CONStudy: CT HEAD WO CON [...] Electronically authenticated by: SURAJ KUNZ Date: 2022-03-01 21:50NoAdena Pike Medical CenterCovid-19 PCR (CVDTBH)on 17-72-9098ZJIM-CoV-2 (COVID-19) RNA PELON+probe Ql (Unsp spec)Not detectedNormalNOT DETECTEDProtestant Deaconess Hospital Comment on above:Result Comment: When diagnostic [...] for this test is supported by the [employer] Professor of Health and Human Service's declaration that [...] longer be used).Performed By: #### POCGLUC #### [facility] [address] [place] [address] Dr. Eliecer Hall URINE PROFILEon 69-07-9428Xavpttfss Ql (U)NegativeNormal NEGATIVEProtestant Deaconess HospitalComment on above:Performed By: #### URCX #### [facility] [address] [address] [address] Eliecer DasClarity (U)CLEARNormalCLEARProtestant Deaconess HospitalComment on above: Performed By: #### URCX #### [facility] [address] [address] [address] Eliecer Pittlor (U)DK. ORANGEAbnormalYELLOWProtestant Deaconess HospitalComment on above:Performed By: #### URCX #### [facility] [address] [address] [address] Eliecer Queen micrscopic examination will be performed if indicated. NormalThe Parkwood HospitalComment on above:Performed By: #### URCX #### [facility] [address] [place] [address] Dr. Eliecer DasGlucose Ql (U)NegativeNormalNEGATIVEProtestant Deaconess HospitalComment on above:Performed By: #### URCX #### [facility] [address] [address] [address] Eliecer DasHemoglobin Ql (U)NegativeNormalNEGCincinnati VA Medical Center on above:Performed By: #### URCX #### [facility] [address] [address] [address] Eliecer DasKetones Ql (U)NegativeNormalNEGATIVEProtestant Deaconess HospitalComment on above:Performed By: #### URCX #### [facility] [address] [address] [address] Eliecer DasLEUKOCYTESNegativeNormalNEGATIVEProtestant Deaconess HospitalComment on above:Performed By: #### URCX #### [facility] [address] [address] [address] Eliecer DasNitrite Ql (U)NegativeNormalNEGATIVEProtestant Deaconess HospitalComment on above:Performed By: #### URCX #### [facility] [address] [address] [address] Eliecer DaspH (U)6.0 [pH]Normal5-9Pro[facility]acon[facility] HospitalComment on above: Performed By: #### URCX #### [facility] [address] [place] [address] Dr. Eliecer DasSPEC GRAVITY1.429Zmodtm4.005-<=1.025The Parkwood HospitalComment on above:Performed By: #### URCX #### [facility] [address] [place] [address] Dr. Eliecer Moss PROTEINTRACENormalNEGATIVE/ TRACEThe Parkwood HospitalComment on above:Performed By: #### URCX #### [facility] [address] [place] [address] Dr. Eliecer Crowe MICRO INDNOT INDICATEDMarietta Osteopathic ClinicComment on above:Performed By: #### URCX #### [facility] [address] [place] [address] Dr. Eliecer Pikebilino Qn (U)1.0 {Narinder'U}/dLNormal0.2 - 1.0The Parkwood HospitalComment on above:Performed By: #### URCX #### [facility] [address] [place] [address] Dr. Eliecer DasXR CHEST 1 Von [id number] CHEST 1 VEXAM: XR CHEST 1 V HISTORY: Pain after fall COMPARISON: Chest x-ray 02/13/2022 TECHNIQUE: Portable chest FINDINGS: The lung parenchyma is free of consolidation or infiltrate. No pneumothorax or pleural effusion. The cardiac, mediastinal and hilar contours are normal. Atherosclerosis of the aortic arch. No acute osseous abnormality IMPRESSION: No visualized acute abnormality Electronically authenticated by: BOBBY JUAREZ Date: 2022-03-01 20:[address] [place], [place] [address]XR PELVIS 1_2 VIEWSon [id number] PELVIS 1_2 VIEWSEXAM: XR PELVIS 1_2 VIEWS HISTORY: Pain after fall COMPARISON: None. TECHNIQUE: AP pelvis FINDINGS: No gross fracture, dislocation, subluxation or osseous lesions. The hip joints, pubic symphysis and sacroiliac joints are unremarkable for patient's age. Postoperative changes of the lumbar spine. Small enthesophytes off the tendinous insertions. IMPRESSION: No acute abnormality. Electronically authenticated by: BOBBY JUAREZ Date: 2022-03-01 20:17NoAdena Pike Medical CenterXR SHOULDER RT 2V or >on [id number] SHOULDER RT 2V or >EXAM: XR SHOULDER [...] Electronically authenticated by: BOBBY JUAREZ Date: 2022-03-01 20:18NoAdena Pike Medical CenterT4 LABCORPon [id number] [Mass/Vol]5.3 ug/dLNormal4.5-12.0[facility] HospitalComment on above:Performed By: #### BLDCX2 #### [facility] [address] [place] [address] Dr. Eliecer De La Vega AUTO DIFFon [id number] #0.1 103/ulNormal0.0-0.1[facility] HospitalComment on above:Performed By: #### POCGLUC #### [facility] [address] [place] [address] Dr. Eliecer DasBasophils/100 WBC (Bld)1.2 %Normal0.2-2.0[facility] Comment on above:Performed By: #### POCGLUC #### [facility] [address] [place] [address] Dr. Eliecer Farias #0.3 103/ulNormal0.0-0.7The [facility] HospitalComment on above: Performed By: #### POCGLUC #### [facility] [address] [place] [address] Dr. Eliecer Salasosinophils/100 WBC (Bld)4.6 %Normal0.9-7.0[facility] Comment on above:Performed By: #### POCGLUC #### [facility] [address] [place] [address] Dr. Eliecer Salasrythrocyte distribution width (RBC) [Ratio]13.5 %Jyjxap79.0-15.0 The Parkwood HospitalComment on above:Performed By: #### POCGLUC #### [facility] [address] [place] [address] Dr. Eliecer DasHematocrit (Bld) [Volume fraction]36.9 %Mrgudc78.0-48.0The [facility] HospitalComment on above:Performed By: #### POCGLUC #### [facility] [address] [place] [address] Dr. Eliecer DasHemoglobin (Bld) [Mass/Vol]12.0 g/wEVqsalb80.0-16.0The [facility] HospitalComment on above:Performed By: #### POCGLUC #### [facility] [address] [place] [address] Dr. Eliecer Swanson #0.02 10e3/ulNormal0.00-0.03The [facility] HospitalComment on above:Performed By: #### POCGLUC #### [facility] [address] [place] [address] Dr. Eliecer Swanson %0.3 %Normal0.0-0.5The [facility] HospitalComment on above: Performed By: #### POCGLUC #### [facility] [address] [place] [address] Dr. Eliecer HardingH #2.1 103/ulNormal1.2-3.8The [facility] HospitalComment on above:Performed By: #### POCGLUC #### [facility] [address] [place] [address] Dr. Eliecer Jonesmphocytes/100 WBC (Bld)35.6 %Kvkqpj92.5-60.0The [facility] HospitalComment on above:Performed By: #### POCGLUC #### [facility] [address] [place] [address] Dr. Eliecer DasMANUAL DIFF REQNONormalThe Parkwood HospitalComment on above: Performed By: #### POCGLUC #### [facility] [address] [address] [address] Eliecer Leonardo (RBC) [Entitic mass]31.2 pqLmysvk75.7-34.0The [facility] HospitalComment on above:Performed By: #### POCGLUC #### [facility] [address] [place] [address] Dr. Eliecer Leonardo (RBC) [Mass/Vol]32.5 g/sMGykejo13.9-35.2The [facility] HospitalComment on above:Performed By: #### POCGLUC #### [facility] [address] [place] [address] Dr. Eliecer Leonardo (RBC) [Entitic vol]95.8 pAHitcgc93.0-99.0The [facility] HospitalComment on above:Performed By: #### POCGLUC #### [facility] [address] [place] [address] Dr. Eliecer Salas #0.7 103/ulNormal0.3-0.8The [facility] HospitalComment on above:Performed By: #### POCGLUC #### [facility] [address] [place] [address] Dr. Eliecer Stuartocytes/100 WBC (Bld)12.4 %Critically high1.7-12.0The [facility] HospitalComment on above:Performed By: #### POCGLUC #### [facility] [address] [place] [address] Dr. Eliecer [place] #2.7 103/ulNormal1.4-6.5The [facility] HospitalComment on above:Performed By: #### POCGLUC #### [facility] [address] [place] [address] Dr. Eliecer Mckeonutrophils/100 WBC (Bld)45.9 %Fewolr23.0-75.0The [facility] HospitalComment on above:Performed By: #### POCGLUC #### [facility] [address] [place] [address] Dr. Eliecer Mcdaniel mean volume (Bld) [Entitic vol]9.4 fLCritically low 9.5-13.5The [facility] HospitalComment on above:Performed By: #### POCGLUC #### [facility] [address] [place] [address] Dr. Eliecer DasPLT183 103/piRfykvr163-657Sie [facility] HospitalComment on above: Performed By: #### POCGLUC #### [facility] [address] [place] [address] Dr. Eliecer DasRBC3.85 106/ulCritically low4.20-5.40[facility] HospitalComment on above:Performed By: #### POCGLUC #### [facility] [address] [place] [address] Dr. Eliecer DasWBC5.8 103/ulNormal4.0-11.0The [facility] HospitalComment on above: Performed By: #### POCGLUC #### [facility] [address] [place] [address] Dr. Eliecer Devlin URINEon [id number] URINEIsolate 1 Escherichia coli >100,000 cfu/mL of [...] <=16 S F Trimethoprim/Sulfamethoxazole >=320 R FNormalThe Parkwood HospitalComment on above:Performed By: #### URCX #### [facility] [address] [place] [address] Dr. Eliecer DasATRIUM HEALTH NAV[facility] GLUCOSEon 29-50-0299Jpkhzov [Mass/Vol]127 mg/dL Critically gffm49-283Nfw [facility] HospitalComment on above:Performed By: #### BLDCX1 #### [facility] [address] [address] [address] Eliecer DasPROF 14(COMP METB)on 69-56-8488Oeqcqpr [Mass/Vol]2.2 g/dL Critically low3.4-5.0The [facility] HospitalComment on above:Performed By: #### BLDCX1 #### [facility] [address] [address] [address] Eliecer DasAlbumin/Globulin [Mass ratio]0.6 {ratio}NormalThe [facility] HospitalComment on above:Performed By: #### BLDCX1 #### [facility] [address] [place] [address] Dr. Eliecer AndrewsP [Catalytic activity/Vol]60 U/QHvqgkl56-641Riv [facility] HospitalComment on above:Performed By: #### [email or web address] #### [facility] [address] [place] [address] Dr. Eliecer AndrewsT [Catalytic activity/Vol]26 U/OKccpnt24-62Tdj [facility] HospitalComment on above:Performed By: #### BLDCX1 #### [facility] [address] [address] [address] Eliecer Elias gap [Moles/Vol]10.7 mmol/LNormalThe [facility] Comment on above:Performed By: #### [email or web address] #### [facility] [address] [place] [address] Dr. Eliecer DasAST [Catalytic activity/Vol]31 U/YFzawnk04-75Bjd [facility] HospitalComment on above:Performed By: #### BLDCX1 #### [facility] [address] [place] [address] Dr. Eliecer DasBilirubin [Mass/Vol]0.7 mg/dLNormal0.2-1.0The [facility] Comment on above:Performed By: #### BLDCX1 #### [facility] [address] [place] [address] Dr. Eliecer DasCalcium [Mass/Vol]8.0 mg/dLCritically low8.5-10.1The [facility] HospitalComment on above:Performed By: #### BLDCX1 #### [facility] [address] [address] [address] Eliecer DasChloride [Moles/Vol]110 mmol/LCritically jiwd26-293Rmu [facility] HospitalComment on above:Performed By: #### BLDCX1 #### [facility] [address] [address] [address] Eliecer DasCO2 [Moles/Vol]26.8 mmol/BTqozvh24.0-32.0The [facility] Comment on above:Performed By: #### BLDCX1 #### [facility] [address] [address] [address] Eliecer DasCreatinine [Mass/Vol]0.69 mg/dLNormal0.55-1.02The [facility] HospitalComment on above:Performed By: #### BLDCX1 #### [facility] [address] [address] [address] Eliecer SalasGFR-AF MICRONESIAN>60Normal>=60The [facility] HospitalComment on above:Performed By: #### [email or web address] #### [facility] [address] [address] [address] Eliecer SalasGFR-NON AF MICRONESIAN>60Normal>=60The [facility] HospitalComment on above:Performed By: #### BLDCX1 #### [facility] [address] [address] [address] Eliecer DasGlobulin (S) [Mass/Vol]3.4 g/dLNormalThe [facility] HospitalComment on above:Performed By: #### BLDCX1 #### [facility] [address] [address] [address] Eliecer DasGlucose [Mass/Vol]123 mg/dLCritically bkox41-386Rvy [facility] HospitalComment on above:Performed By: #### BLDCX1 #### [facility] [address] [address] [address] Eliecer DasPotassium [Moles/Vol]3.5 mmol/LNormal3.5-5.1The [facility] Comment on above:Performed By: #### BLDCX1 #### [facility] [address] [place] [address] Dr. Eliecer DasProtein [Mass/Vol]5.6 g/dLCritically low6.4-8.2The [facility] HospitalComment on above:Performed By: #### BLDCX1 #### [facility] [address] [place] [address] Dr. Eliecer Costadium [Moles/Vol]144 mmol/CDjczdc447-133Yep [facility] Comment on above:Performed By: #### BLDCX1 #### [facility] [address] [place] [address] Dr. Eliecer DasUrea nitrogen [Mass/Vol]9.0 mg/dLNormal7.0-18.0[facility] HospitalComment on above:Performed By: #### BLDCX1 #### [facility] [address] [place] [address] Dr. Eliecer Juan nitrogen/Creatinine [Mass ratio]13.0 mg/mgNormalThe [facility] HospitalComment on above:Performed By: #### BLDCX1 #### [facility] [address] [place] [address] Dr. Eliecer De La Vega AUTO DIFFon 01-14-8250AGJV #0.1 103/ulNormal0.0-0.1[facility] HospitalComment on above:Performed By: #### BLDCX1 #### [facility] [address] [place] [address] Dr. Eliecer DasBaeliasphils/100 WBC (Bld)1.0 %Normal0.2-2.0[facility] Comment on above:Performed By: #### BLDCX1 #### [facility] [address] [place] [address] Dr. Eliecer Farias #0.3 103/ulNormal0.0-0.7The [facility] HospitalComment on above: Performed By: #### BLDCX1 #### [facility] [address] [place] [address] Dr. Yilan ChangEosinophils/100 WBC (Bld)4.4 %Normal0.9-7.0[facility] Comment on above:Performed By: #### [email or web address] #### [facility] [address] [place] [address] Dr. Eliecer Salasrythrocyte distribution width (RBC) [Ratio]13.6 %Wqdibd54.0-15.0 The [facility] HospitalComment on above:Performed By: #### BLDCX1 #### [facility] [address] [place] [address] Dr. Eliecer DasHematocrit (Bld) [Volume fraction]38.4 %Edwnum36.0-48.0The [facility] HospitalComment on above:Performed By: #### BLDCX1 #### [facility] [address] [place] [address] Dr. Eliecer DasHemoglobin (Bld) [Mass/Vol]12.3 g/qFQewpct78.0-16.0The [facility] HospitalComment on above:Performed By: #### BLDCX1 #### [facility] [address] [place] [address] Dr. Eliecer Swanson #0.04 10e3/ulCritically high0.00-0.03The [facility] Comment on above:Performed By: #### BLDCX1 #### [facility] [address] [place] [address] Dr. Eliecer Swanson %0.7 %Critically high0.0-0.5The [facility] HospitalComment on above:Performed By: #### BLDCX1 #### [facility] [address] [place] [address] Dr. Eliecer JonesMPH #2.5 103/ulNormal1.2-3.8The [facility] HospitalComment on above:Performed By: #### BLDCX1 #### [facility] [address] [place] [address] Dr. Eliecer Jonesmphocytes/100 WBC (Bld)40.7 %Jtxfnw02.5-60.0The [facility] HospitalComment on above:Performed By: #### BLDCX1 #### [facility] [address] [place] [address] Dr. Eliecer Benson DIFF REQNONormalThe [facility] HospitalComment on above: Performed By: #### [email or web address] #### [facility] [address] [place] [address] Dr. Eliecer Leonardo (RBC) [Entitic mass]30.7 eyGfrzxy05.7-34.0The [facility] HospitalComment on above:Performed By: #### [email or web address] #### [facility] [address] [place] [address] Dr. Eliecer Leonardo (RBC) [Mass/Vol]32.0 g/rDZctvyq09.9-35.2The [facility] HospitalComment on above:Performed By: #### [email or web address] #### [facility] [address] [place] [address] Dr. Eliecer Leonardo (RBC) [Entitic vol]95.8 dTUjztvf23.0-99.0The [facility] HospitalComment on above:Performed By: #### [email or web address] #### [facility] [address] [place] [address] Dr. Eliecer Salas #0.7 103/ulNormal0.3-0.8The [facility] HospitalComment on above:Performed By: #### [email or web address] #### [facility] [address] [place] [address] Dr. Eliecer Stuartocytes/100 WBC (Bld)11.5 %Normal1.7-12.0The [facility] Comment on above:Performed By: #### [email or web address] #### [facility] [address] [place] [address] Dr. Eliecer [place] #2.6 103/ulNormal1.4-6.5The [facility] HospitalComment on above:Performed By: #### [email or web address] #### [facility] [address] [place] [address] Dr. Eliecer Mckeonutrophils/100 WBC (Bld)41.7 %Critically low43.0-75.0The [facility] HospitalComment on above:Performed By: #### [email or web address] #### [facility] [address] [place] [address] Dr. Eliecer Shooklet mean volume (Bld) [Entitic vol]9.5 fLNormal9.5-13.5The Parkwood HospitalComment on above:Performed By: #### BLDCX1 #### [facility] [address] [place] [address] Dr. Eliecer DasPLT215 103/cwQzyrlp880-358Mjf Park[facility] HospitalComment on above: Performed By: #### BLDCX1 #### [facility] [address] [place] [address] Dr. Eliecer DasRBC4.01 106/ulCritically low4.20-5.40The Parkwood HospitalComment on above:Performed By: #### BLDCX1 #### [facility] [address] [place] [address] Dr. Eliecer DasWBC6.1 103/ulNormal4.0-11.0The [facility] HospitalComment on above: Performed By: #### BLDCX1 #### [facility] [address] [place] [address] Dr. Eliecer DasATRIUM HEALTH NAV[facility]ACH GLUCOSEon 35-50-9132Wyadmcu [Mass/Vol]100 mg/dL Dunrzr39-877Yve [facility] HospitalComment on above:Performed By: #### URCX #### [facility] [address] [place] [address] Dr. Eliecer DasGlucose [Mass/Vol]95 mg/dRVpysmk06-335Azj [facility] Comment on above:Performed By: #### BLDCX1 #### [facility] [address] [place] [address] Dr. Eliecer DasGlucose [Mass/Vol]107 mg/dLCritically kkhw33-689Bds [facility] HospitalComment on above:Performed By: #### BLDCX1 #### [facility] [address] [place] [address] Dr. Eliecer DasGlucose [Mass/Vol]194 mg/dLCritically pvjh41-754Ksn [facility] HospitalComment on above:Performed By: #### CVDTBH #### [facility] [address] [place] [address] Dr. Eliecer DasGlucose [Mass/Vol]105 mg/xHKcmplp20-278BeeProtestant Deaconess Hospital Comment on above:Performed By: #### BLDCX2 #### [facility] [address] [place] [address] Dr. Eliecer DasPROF 14(COMP METB)on 55-20-1197Islyxze [Mass/Vol]2.2 g/dL Critically low3.4-5.0The [facility] HospitalComment on above:Performed By: #### URCX #### [facility] [address] [place] [address] Dr. Eliecer DasAlbumin/Globulin [Mass ratio]0.6 {ratio}NormalThe [facility]wood HospitalComment on above:Performed By: #### URCX #### [facility] [address] [place] [address] Dr. Eliecer Mallory [Catalytic activity/Vol]56 U/WZymqpd81-045For [facility] HospitalComment on above:Performed By: #### URCX #### [facility] [address] [place] [address] Dr. Eliecer Conley [Catalytic activity/Vol]30 U/KChnhgq27-57Fzv [facility] HospitalComment on above:Performed By: #### URCX #### [facility] [address] [place] [address] Dr. Eliecer Elias gap [Moles/Vol]12.2 mmol/LNormalThe [facility] Comment on above:Performed By: #### URCX #### [facility] [address] [place] [address] Dr. Eliecer DasAST [Catalytic activity/Vol]43 U/LCritically osld09-68Yki [facility] Hospitalment on above:Performed By: #### URCX #### [facility] [address] [address] [address] Eliecer DasBilirubin [Mass/Vol]1.5 mg/dLCritically high0.2-1.0The [facility] Hospitalment on above:Performed By: #### URCX #### [facility] [address] [place] [address] Dr. Eliecer DasCalcium [Mass/Vol]8.1 mg/dLCritically low8.5-10.1The [facility] HospitalComment on above:Performed By: #### URCX #### [facility] [address] [place] [address] Dr. Eliecer DasChloride [Moles/Vol]110 mmol/LCritically zekl14-007Weg [facility] on above:Performed By: #### URCX #### [facility] [address] [place] [address] Dr. Eliecer DasCO2 [Moles/Vol]26.7 mmol/DXwjmbe15.0-32.0The [facility] Comment on above:Performed By: #### URCX #### [facility] [address] [place] [address] Dr. Eliecer DasCreatinine [Mass/Vol]0.71 mg/dLNormal0.55-1.02The [facility] on above:Performed By: #### URCX #### [facility] [address] [place] [address] Dr. Eliecer SalasGFR-AF MICRONESIAN>60Normal>=60The [facility] on above:Performed By: #### URCX #### [facility] [address] [place] [address] Dr. Eliecer SalasGFR-NON AF MICRONESIAN>60Normal>=60The [facility] Hospitalment on above:Performed By: #### URCX #### [facility] [address] [place] [address] Dr. Eliecer DasGlobulin (S) [Mass/Vol]3.5 g/dLNormalThe [facility] HospitalComment on above:Performed By: #### URCX #### [facility] [address] [address] [address] Eliecer DasGlucose [Mass/Vol]82 mg/rLInskuc99-189Lmf [facility] Comment on above:Performed By: #### URCX #### [facility] [address] [address] [address] Eliecer DasPotassium [Moles/Vol]3.9 mmol/LNormal3.5-5.1The [facility] Comment on above:Performed By: #### URCX #### [facility] [address] [address] [address] Eliecer DasProtein [Mass/Vol]5.7 g/dLCritically low6.4-8.2The [facility] HospitalComment on above:Performed By: #### URCX #### [facility] [address] [place] [address] Dr. Eliecer DasSodium [Moles/Vol]145 mmol/RFwspmf808-308Shn [facility] Comment on above:Performed By: #### URCX #### [facility] [address] [place] [address] Dr. Eliecer DasUrea nitrogen [Mass/Vol]8.0 mg/dLNormal7.0-18.0The [facility] HospitalComment on above:Performed By: #### URCX #### [facility] [address] [place] [address] Dr. Eliecer DasUrea nitrogen/Creatinine [Mass ratio]11.3 mg/mgNoAdena Pike Medical CenterComment on above:Performed By: #### URCX #### [facility] [address] [place] [address] Dr. Eliecer Salmeron 53-18-9420IMJ6.050 uIU/mLNormal0.358-3.740Pro[facility]aconess HospitalComment on above:Performed By: #### URCX #### [facility] [address] [place] [address] Dr. Eliecer Noel RANGESEE BELOWMarietta Osteopathic ClinicComment on above: Result Comment: <0.34 UIU/ml HYPERTHYROID 0.34-5.60 UIU/ml EUTHYROID >5.60 UIU/ml HYPOTHYROIDPerformed By: #### URCX #### [facility] [address] [place] [address] Dr. Eliecer Stafford 82-86-7630Cclxrhycmqr peptide B (Bld) [Mass/Vol]87.0 pg/mL Normal<=1,800.0The [facility] HospitalComment on above:Performed By: #### BLDCX2 #### [facility] [address] [place] [address] Dr. Eliecer De La Vega AUTO DIFFon 39-58-3751QDPQ #0.1 103/ulNormal0.0-0.1The [facility] HospitalComment on above:Performed By: #### POCGLUC #### [facility] [address] [place] [address] Dr. Eliecer DasBasophils/100 WBC (Bld)1.4 %Normal0.2-2.0[facility] Comment on above:Performed By: #### POCGLUC #### [facility] [address] [place] [address] Dr. Eliecer Farias #0.2 103/ulNormal0.0-0.7The [facility] HospitalComment on above: Performed By: #### POCGLUC #### [facility] [address] [place] [address] Dr. Eliecer Salasosinophils/100 WBC (Bld)3.8 %Normal0.9-7.0[facility] Comment on above:Performed By: #### POCGLUC #### [facility] [address] [place] [address] Dr. Eliecer Salasrythrocyte distribution width (RBC) [Ratio]13.6 %Koejla65.0-15.0 [facility] HospitalComment on above:Performed By: #### POCGLUC #### [facility] [address] [place] [address] Dr. Eliecer DasHematocrit (Bld) [Volume fraction]46.3 %Gxgnqh17.0-48.0The [facility] HospitalComment on above:Performed By: #### POCGLUC #### [facility] [address] [place] [address] Dr. Eliecer DasHemoglobin (Bld) [Mass/Vol]14.8 g/pXRyphut23.0-16.0The [facility] HospitalComment on above:Performed By: #### POCGLUC #### [facility] [address] [place] [address] Dr. Eliecer Swanson #0.03 10e3/ulNormal0.00-0.03The [facility] HospitalComment on above:Performed By: #### POCGLUC #### [facility] [address] [place] [address] Dr. Eliecer Swanson %0.5 %Normal0.0-0.5The [facility] HospitalComment on above: Performed By: #### POCGLUC #### [facility] [address] [place] [address] Dr. Eliecer Mccann #1.8 103/ulNormal1.2-3.8The [facility] HospitalComment on above:Performed By: #### POCGLUC #### [facility] [address] [place] [address] Dr. Eliecer Hardinghocytes/100 WBC (Bld)28.2 %Uqlbzp67.5-60.0The [facility] HospitalComment on above:Performed By: #### POCGLUC #### [facility] [address] [place] [address] Dr. Eliecer LukeUAL DIFF REQNONormalThe [facility] HospitalComment on above: Performed By: #### POCGLUC #### [facility] [address] [place] [address] Dr. Eliecer Rodriguez (RBC) [Entitic mass]31.1 qyNccejo67.7-34.0The [facility] HospitalComment on above:Performed By: #### POCGLUC #### [facility] [address] [place] [address] Dr. Eliecer LeonardoHC (RBC) [Mass/Vol]32.0 g/rXNmxrcb17.9-35.2The [facility] HospitalComment on above:Performed By: #### POCGLUC #### [facility] [address] [place] [address] Dr. Eliecer Denson (RBC) [Entitic vol]97.3 eMGolqua21.0-99.0The [facility] HospitalComment on above:Performed By: #### POCGLUC #### [facility] [address] [place] [address] Dr. Eliecer Salas #0.6 103/ulNormal0.3-0.8The [facility] HospitalComment on above:Performed By: #### POCGLUC #### [facility] [address] [place] [address] Dr. Eliecer Stuartocytes/100 WBC (Bld)9.1 %Normal1.7-12.0The [facility] Comment on above:Performed By: #### POCGLUC #### [facility] [address] [place] [address] Dr. Eliecer [place] #3.6 103/ulNormal1.4-6.5The [facility] HospitalComment on above:Performed By: #### POCGLUC #### [facility] [address] [place] [address] Dr. Eliecer Mckeonutrophils/100 WBC (Bld)57.0 %Lgweem74.0-75.0The [facility] HospitalComment on above:Performed By: #### POCGLUC #### [facility] [address] [place] [address] Dr. Eliecer Shooklet mean volume (Bld) [Entitic vol]9.4 fLCritically low 9.5-13.5The [facility] HospitalComment on above:Performed By: #### POCGLUC #### [facility] [address] [place] [address] Dr. Eliecer GonsalesT239 103/sjWpuvmm815-715Afz [facility] HospitalComment on above: Performed By: #### POCGLUC #### [facility] [address] [place] [address] Dr. Eliecer DasRBC4.76 106/ulNormal4.20-5.40The [facility] HospitalComment on above:Performed By: #### POCGLUC #### [facility] [address] [place] [address] Dr. Eliecer DasWBC6.3 103/ulNormal4.0-11.0The [facility] HospitalComment on above: Performed By: #### POCGLUC #### [facility] [address] [place] [address] Dr. Eliecer DasCULTURE BLOODon 18-27-8588Xkqthnoiotj examination of blood, cultureCulture Observations: NO GROWTH AT 5 DAYS.NormalThe [facility] HospitalComment on above:Performed By: #### BLDCX2 #### [facility] [address] [place] [address] Dr. Eliecer DasMicroscopic examination of blood, cultureCulture Observations: NO GROWTH AT 5 DAYS.NormalThe [facility] HospitalComment on above:Performed By: #### CVDTBH #### [facility] [address] [place] [address] Dr. Eliecer DasCovid-19 PCR ([facility])on 64-35-5209THBK-CoV-2 (COVID-19) RNA PELON+probe Ql (Unsp spec)Not detectedNormalNOT DETECTEDThe [facility] Comment on above:Result Comment: When diagnostic [...] for this test is supported by the [employer] of [employer] and Human Service's declaration that [...] longer be used).Performed By: #### URCX #### [facility] [address] [place] [address] Dr. Eliecer Hall URINE PROFILEon 95-66-7956Arfqdwrxc Ql (U)NegativeNormal NEGATIVEProtestant Deaconess HospitalComment on above:Performed By: #### POCGLUC #### [facility] [address] [address] [address] Eliecer Jeongarity (U)CLEARNormalCLEARProtestant Deaconess HospitalComment on above: Performed By: #### POCGLUC #### [facility] [address] [place] [address] Dr. Eliecer Pittlor (U)YELLOWNormalYELLOWProtestant Deaconess HospitalComment on above: Performed By: #### POCGLUC #### [facility] [address] [place] [address] Dr. Eliecer Queen micrscopic examination will be performed if indicated. NormalProtestant Deaconess HospitalComment on above:Performed By: #### POCGLUC #### [facility] [address] [place] [address] Dr. Eliecer DasGlucose Ql (U)NegativeNormalNEGATIVEProtestant Deaconess HospitalComment on above:Performed By: #### POCGLUC #### [facility] [address] [place] [address] Dr. Eliecer DasHemoglobin Ql (U)NegativeNormalNEGATIVEGood Samaritan [facility] on above:Performed By: #### POCGLUC #### [facility] [address] [place] [address] Dr. Eliecer DasKetones Ql (U)NegativeNormalNEGATIVEProtestant Deaconess HospitalComment on above:Performed By: #### POCGLUC #### [facility] [address] [place] [address] Dr. Eliecer DasLEUKOCYTESTRACEAbnormalNEGATIVEProtestant Deaconess HospitalComment on above:Performed By: #### POCGLUC #### [facility] [address] [place] [address] Dr. Eliecer Pulido Ql (U)PositiveAbnormalNEGATIVEProtestant Deaconess Hospital Comment on above:Performed By: #### POCGLUC #### [facility] [address] [place] [address] Dr. Eliecer DaspH (U)5.5 [pH]Normal5-9The [facility] HospitalComment on above: Performed By: #### POCGLUC #### [facility] [address] [place] [address] Dr. Eliecer DasSPEC GRAVITY1.791Nvcqzh2.005-<=1.025The [facility] HospitalComment on above:Performed By: #### POCGLUC #### [facility] [address] [place] [address] Dr. lEiecer Moss PROTEINNegativeNormalNEGATIVE/ TRACEThe [facility] Comment on above:Performed By: #### POCGLUC #### [facility] [address] [place] [address] Dr. Eliecer Crowe MICRO INDINDICATEDNormalThe [facility] HospitalComment on above: Performed By: #### POCGLUC #### [facility] [address] [place] [address] Dr. Eliecer Pikebilino Qn (U)0.2 {Narinder'U}/dLNormal0.2 - 1.0[facility]acon[facility] HospitalComment on above:Performed By: #### POCGLUC #### [facility] [address] [place] [address] Dr. Eliecer DurantCTATE/LACTIC ACIDon 15-63-3840Amswknd [Moles/Vol]2.1 mmol/L Critically high0.4-1.9The [facility] HospitalComment on above:Performed By: #### BLDCX2 #### [facility] [address] [place] [address] Dr. Eliecer DasLactate [Moles/Vol]2.5 mmol/LCritically high0.4-1.9The [facility] HospitalComment on above:Performed By: #### BLDCX1 #### [facility] [address] [address] [address] Eliecer DasPOINT OF CARE GLUCOSEon 06-69-3025Egbxwuy [Mass/Vol]131 mg/dL Critically autv99-612Yem [facility] HospitalComment on above:Performed By: #### BLDCX1 #### [facility] [address] [address] [address] Eliecer DasPROF 14(COMP METB)on 62-79-9889Kzgniol [Mass/Vol]2.8 g/dL Critically low3.4-5.0The [facility] HospitalComment on above:Performed By: #### BLDCX2 #### [facility] [address] [address] [address] Eliecer DasAlbumin/Globulin [Mass ratio]0.6 {ratio}NormalThe [facility] HospitalComment on above:Performed By: #### BLDCX2 #### [facility] [address] [address] [address] Eliecer Mallory [Catalytic activity/Vol]75 U/ZQwlofm86-348Ehr [facility] HospitalComment on above:Performed By: #### BLDCX2 #### [facility] [address] [address] [address] Eliecer Conley [Catalytic activity/Vol]33 U/TNpaxyl21-78Gqq [facility] HospitalComment on above:Performed By: #### BLDCX2 #### [facility] [address] [address] [address] Eliecer Elias gap [Moles/Vol]10.5 mmol/LNormalThe [facility] Comment on above:Performed By: #### BLDCX2 #### [facility] [address] [address] [address] Eliecer DasAST [Catalytic activity/Vol]52 U/LCritically zuhf52-67Foa [facility] HospitalComment on above:Performed By: #### BLDCX2 #### [facility] [address] [place] [address] Dr. Eliecer DasBilirubin [Mass/Vol]1.9 mg/dLCritically high0.2-1.0The [facility] HospitalComment on above:Performed By: #### BLDCX2 #### [facility] [address] [place] [address] Dr. Eliecer DasCalcium [Mass/Vol]9.5 mg/dLNormal8.5-10.1[facility] Comment on above:Performed By: #### BLDCX2 #### [facility] [address] [address] [address] Eliecer DasChloride [Moles/Vol]107 mmol/SWanbjr41-754Gpr [facility] Comment on above:Performed By: #### BLDCX2 #### [facility] [address] [place] [address] Dr. Eliecer DasCO2 [Moles/Vol]27.4 mmol/XScnpav64.0-32.0[facility] Comment on above:Performed By: #### BLDCX2 #### [facility] [address] [place] [address] Dr. Eliecer DasCreatinine [Mass/Vol]0.86 mg/dLNormal0.55-1.02The [facility] HospitalComment on above:Performed By: #### BLDCX2 #### [facility] [address] [place] [address] Dr. Eliecer SalasGFR-AF MICRONESIAN>60Normal>=60The [facility] HospitalComment on above:Performed By: #### BLDCX2 #### [facility] [address] [place] [address] Dr. Eliecer SalasGFR-NON AF MICRONESIAN>60Normal>=60[facility] HospitalComment on above:Performed By: #### BLDCX2 #### [facility] [address] [place] [address] Dr. Eliecer DasGlobulin (S) [Mass/Vol]4.4 g/dLNormalThe [facility] HospitalComment on above:Performed By: #### BLDCX2 #### [facility] [address] [place] [address] Dr. Eliecer DasGlucose [Mass/Vol]136 mg/dLCritically kryj87-193Ock [facility] The [facility] HospitalComment on above:Performed By: #### BLDCX2 #### [facility] [address] [place] [address] Dr. Eliecer DasPotassium [Moles/Vol]3.9 mmol/LNormal3.5-5.1[facility] Comment on above:Performed By: #### BLDCX2 #### [facility] [address] [place] [address] Dr. Eliecer DasProtein [Mass/Vol]7.2 g/dLNormal6.4-8.2[facility] Comment on above:Performed By: #### BLDCX2 #### [facility] [address] [place] [address] Dr. Eliecer Costadium [Moles/Vol]141 mmol/EFpolur451-108VblProtestant Deaconess Hospital Comment on above:Performed By: #### BLDCX2 #### [facility] [address] [place] [address] Dr. Eliecer DasUrea nitrogen [Mass/Vol]10.0 mg/dLNormal7.0-18.0[facility] HospitalComment on above:Performed By: #### BLDCX2 #### [facility] [address] [place] [address] Dr. Eliecer Juan nitrogen/Creatinine [Mass ratio]11.6 mg/mgNoAdena Pike Medical CenterComment on above:Performed By: #### BLDCX2 #### [facility] [address] [place] [address] Dr. Eliecer Gann 39-16-8454BWP Coag (PPP) [Relative time]1.16 {INR} NormalProtestant Deaconess HospitalComment on above:Performed By: #### BLDCX1 #### [facility] [address] [place] [address] Dr. Eliecer Michel GUIDELINESSEE BELOWMarietta Osteopathic ClinicComment on above:Result Comment: DESIRED INR: 2.0 - 3.0 CONDITIONS NOT LISTED BELOW 2.5 - 3.5 FOR PROSTHETIC HEART VALVE REPLACEMENT 2.5 - 3.5 RECURRENT THROMBOSIS Performed By: #### BLDCX1 #### [facility] [address] [place] [address] Dr. Eliecer Brady Coag (PPP) [Time]12.4 sCritically high9.0-11.6The [facility] on above:Performed By: #### BLDCX1 #### [facility] [address] [place] [address] Dr. Eliecer Shahid, HIGH SENSITIVITYon 55-17-3750TJPMSK7.4 pg/mLNormal 4.0-51.3The [facility] on above:Result Comment: CUT-OFF POINTS HAVE BEEN ESTABLISHED BASED ON THE FOURTH UNIVERSAL DEFINITIONS OF MYOCARDIAL INFARCTION. THE UPPER REFERENCE LIMIT (URL) OF TROPONIN, DEFINED THE 99TH PERCENTILE OF cTnI DISTRIBUTION IN A REFERENCE POPULATION, HAS BEEN CONFIRMED THE DECISION THRESHOLD FOR [place] DIAGNOSIS.Performed By: #### BLDCX2 #### [facility] [address] [place] [address] Dr. Eliecer Ontiveros MICROSCOPIC ONLYon 21-92-4523VDFBSFXKHJQRMTiiijfxbSYGU SEEN [facility] HospitalComharper [facility] hospital on above:Performed By: #### POCGLUC #### [facility] [address] [place] [address] Dr. Eliecer Mcgill identified Cx Nom (U)INDICATEDNoRegency Hospital Toledo on above:Performed By: #### POCGLUC #### [facility] [address] [place] [address] Dr. Eliecer Clifford SEENNormalNONE SEENMercy Health [facility] on above:Performed By: #### POCGLUC #### [facility] [address] [place] [address] Dr. Eliecer Gonzáles LM Nom (Urine sed)NONE SEENNormalNONE SEENMercy Health [facility] Hospital on above:Performed By: #### POCGLUC #### [facility] [address] [place] [address] Dr. Gonzáles ChangEpithelial cells LM Ql (Urine sed)FEWAbnormalNONE SEEN /RAREThe [facility] on above:Performed By: #### POCGLUC #### [facility] [address] [address] [address] Eliecer DasMUCOUSNINA SEENNormalNONE SEENProtestant Deaconess HospitalComment on above:Performed By: #### POCGLUC #### [facility] [address] [address] [address] Eliecer DasBpfznQHX5-6Iczlgv2-1Jnw [facility] HospitalComment on above:Performed By: #### POCGLUC #### [facility] [address] [address] [address] Gonzáles ChangWBC5-10AbnormalNONE SEENThe [facility] HospitalComment on above: Performed By: #### POCGLUC #### [facility] [address] [address] [address] Eliecer DasXR CHEST 1 Von 38-74-9921II CHEST 1 VEXAMINATION: XR CHEST 1 V [...] Electronically authenticated by: BOBBY RAMACHANDRAN Date: 2022-02-13 13:21NoAdena Pike Medical CenterA1C HEMOGLOBINon 47-26-5720YjD7a (Bld) [Mass fraction]5.3 % Junar Other HbA1c (Bld) [Mass fraction]on 10-14-7795M0I HEMOGLOBIN Junar Other a1c HEMOGLOBINon 58-46-0473TfI6b (Bld) [Mass fraction] 5.5 %Junar Other HbA1c (Bld) [Mass fraction]on 97-94-0450G7R HEMOGLOBIN Junar Other COVID Quick Testingon 75-49-4370HdejgpZtialkwtYlwpe [place] myOrder Other Vital Signs Date TimeVital SignValuePerforming EjzxlvbozNxowlube00-88-7482 14:24-0500Body .4 cmAnthony Rusher DPM Work Phone: [phone]11-03-2025 14:24-0500Body mass index (BMI) [Ratio]34.96 kg/q1Fflbgjn Rusher DPM Work Phone: [phone] [place], [place] 2569611-03-2025 14:24-0500Body nuyimm08.19 kgAnthony Rusher DPM Work Phone: [phone] [place], [place] 2569610-13-2025 10:13-0400Body .4 cmAnthony Rusher DPM Work Phone: [phone] [place], [place] 2569610-13-2025 10:13-0400Body mass index (BMI) [Ratio]34.96 kg/l2Pxeebwy Rusher DPM Work Phone: [phone] [place], [place] 2569610-13-2025 10:13-0400Body acjxgs54.19 kgAnthony Rusher DPM Work Phone: [phone] [place], [place] 2569609-29-2025 13:40-0400Body olteyd015.4 cmAnthony Rusher DPM Work Phone: [phone] [place], [place] 2569609-29-2025 13:40-0400Body mass index (BMI) [Ratio]34.96 kg/i4Tceziad Rusher DPM Work Phone: [phone] [place] [address]-29-2025 13:40-0400Body dobxue22.19 kgAnthony Rusher DPM Work Phone: [phone] [place], [place] 25[address]609-23-2025 14:21-0400Body eqpqag529.24 cmFatoumata Chase MD Work Phone: [facility]09-23-2025 14:21-0400 Body mass index (BMI) [Ratio]41 kg/u1NlcfrmFatoumata Chase MD Work Phone: [facility]09-23-2025 14:21-0400 Body bxjehz20 kgFatoumata Chase MD Work Phone: [facility]09-23-2025 14:21-0400 Diastolic blood avtiaars50 mm[Hg]Fatoumata Chase MD Work Phone: [facility]09-23-2025 14:21-0400 Heart rate66 /minFatoumata Chase MD Work Phone: [facility]09-23-2025 14:21-0400 Systolic blood lzkytibt400 mm[Hg]Fatoumata Chase MD Work Phone: [facility]03-24-2025 13:03-0400 Body wgoabb779.24 [facility] 13:03-0400Body mass index (BMI) [Ratio]38.3 kg/t3ZlzzgnzddBerger Hospital03-24-2025 13:03-0400Body qloyqp56.64 [facility]03[facility] 13:03-0400Diastolic blood mm[Hg][facility] 12-07-2024 13:03-0400Heart rate66 /[facility] 12-07-2024 13:03-0400Respiratory rate12 /[facility] 12-07-2024 13:03-4234JzF3% (BldA) [Mass fraction]99 %[facility]03-24-2025 13:03-0400Systolic blood edfwrwql592 mm[Hg][facility]09-23-2024 13:02-0400Body .24 [facility] 13:02-0400Body mass index (BMI) [Ratio]39.4 kg/m2 [facility]09-23-2024 13:02-0400Body igcwsb70.83 kg [facility]09-23-2024 13:02-0400Diastolic blood vfaejjmh55 mm[Hg][facility]09-23-2024 13:02-0400Heart rate55 /min [facility]09-23-2024 13:02-0400Systolic blood efpslmzd591 mm[Hg][facility]06-20-2024 13:04-0400Body iorfcb682.24 [facility]06[facility] 13:04-0400Body mass index (BMI) [Ratio]37.8 kg/p8OwhnvriwwBerger Hospital06-20-2024 13:040400Body .65 [facility] 13:04-0400Diastolic blood dlmxzmof20 mm[Hg][facility]06-20-2024 13:04-0400 Heart rate73 /[facility]06-20-2024 13:0400Systolic blood ujdxuqii224 mm[Hg][facility]05-14-2024 11:23-0400 Body vvvvop493.24 [facility]05[facility] 11:23-0400Body mass index (BMI) [Ratio]36.1 kg/w1ZbshzibqqBerger Hospital05-14-2024 11:23-0400Body gofbgjawhsg41 [degF][facility]05-14-2024 11:23-0400Body rywcok63.02 kg[facility]05-[facility] 11:23-0400Diastolic blood pvrxlymz55 mm[Hg][facility] 01-28-2024 11:23-0400Heart rate69 /[facility] 01-28-2024 11:23-0400Respiratory rate20 /[facility] 01-28-2024 11:23-0500AsL9% (BldA) [Mass fraction]95 %[facility]05-14-2024 11:23-0400Systolic blood kcryegml918 mm[Hg][facility]04-17-2024 10:42-0400Body dldyti773.51 cm[facility]04-17-2024 10:42-0400Body mass index (BMI) [Ratio]35.6 kg/m2 [facility]04-17-2024 10:42-0400Body qvbcyd63.48 kg [facility]04-17-2024 10:42-0400Diastolic blood qjiknlti56 mm[Hg][facility]04-17-2024 10:42-0400Heart rate66 /min [facility]04-17-2024 10:42-0400Systolic blood crfujdth897 mm[Hg][facility]03-18-2024 13:38-0400Body aymvuf075.51 cm[facility]03-18-2024 13:38-0400Body mass index (BMI) [Ratio]36.3 kg/m7LufomkurlBerger Hospital03-18-2024 13:38-0400Body lkkszy27.84 kg[facility]03-18-2024 13:38-0400Diastolic blood vrlrdqem67 mm[Hg][facility]03-18-2024 13:38-0400 Heart rate67 /minBer[facility]03-18-2024 13:38-0400Systolic blood lorggykl783 mm[Hg][facility]11-16-2023 14:30-0500 Body qvekur810.51 cmFatoumata Chase Other [facility] Other 11-16-2023 14:30-0500Body mass index (BMI) [Ratio]35.9 kg/e7BllupzFatoumata Chase Other [facility] Other 11-16-2023 14:30-0500Body .94 kgFatoumata Chase Other [facility] Other 11-16-2023 14:30-0500Diastolic blood ivwwhiml14 mm[Hg] Fatoumata Chase Other [facility] Other 11-16-2023 14:30-0500Systolic blood wanmasri881 mm[Hg] Fatoumata Chase Other [facility] Other 11-08-2023 13:00-0500Body wcdfge431.51 cmJennifer Rohrbacher Other [facility] Other 11-08-2023 13:00-0500Body mass index (BMI) [Ratio] 35.68 kg/b8AmxtzdseMorena Santanadarlin Other [facility] Other 11-08-2023 13:00-0500Body rbbygutxqcx42 [degF]Morena Pisanowyatt Other [facility] Other 11-08-2023 13:00-0500Body lsnuqw01.48 kgMorena Vera Other [facility] Other 11-08-2023 13:00-0500Diastolic blood iiuohyxx75 mm[Hg] Morena Chuy Other [facility] Other 11-08-2023 13:00-5054QoO1% (BldA) [Mass fraction]97 % Morena Chuy Other [facility] Other 11-08-2023 13:00-0500Systolic blood rpxvdyhv480 mm[Hg] Morena Chuy Other [facility] Other 10-31-2023 15:45-0400Body vdybcb845.51 cmMylenecia Salvatore Other [employer] Other 10-31-2023 15:45-0400Body mass index (BMI) [Ratio]37 kg/z0Bnosz Elif Other [facility] Other 10-31-2023 15:45-0400Body kzdebxrglad12.6 [degF]Staci Elif Other [facility] Other 10-31-2023 15:45-0400Body .2 kgHeidi Elif Other [facility] Other 10-31-2023 15:45-0400Diastolic blood etbfrcek36 mm[Hg] Staci Elif Other [facility] Other 10-31-2023 15:45-0400Respiratory rate20 /minHeidi Elif Other [facility] Other 10-31-2023 15:45-9564SmI3% (BldA) [Mass fraction]99 % Staci Elif Other [facility] Other 10-31-2023 15:45-0400Systolic blood hxlsaxss246 mm[Hg] Staci Elif Other [facility] Other 10-31-2023 11:00-0400Body mass index (BMI) [Ratio] 36.69 kg/k5YlazebFatoumata Chase Other [employer] Other 10-31-2023 11:00-0400Body krpune39.57 kgFatoumata Chase Other [facility] Other 10-31-2023 11:00-0400Diastolic blood mm[Hg] Fatoumata Chase Other [facility] Other 10-31-2023 11:00-0400Systolic blood ztseoika962 mm[Hg] Fatoumata Chase Other [facility] Other 08-11-2023 14:00-0400Body panzsr544.51 cmFatoumata Chase Other [facility] Other 08-11-2023 14:00-0400Body mass index (BMI) [Ratio]39.2 kg/c3CetpurFatoumata Chase Other [facility] Other 08-11-2023 14:00-0400Body .74 kgMyleneyaquelin Salvatore Other [facility] Other 08-11-2023 14:00-0400Diastolic blood uriwchmi46 mm[Hg] Fatoumata Chase Other [facility] Other 08-11-2023 14:00-1378QnF8% (BldA) [Mass fraction]97 % Fatoumata Chase Other [facility] Other 08-11-2023 14:00-0400Systolic blood zuorvxlt551 mm[Hg] Fatoumata Chase Other [facility] Other 06-12-2023 14:00-0400Body cwceks328.51 cmFatoumata Chase Other [facility] Other 06-12-2023 14:00-0400Body mass index (BMI) [Ratio] 38.98 kg/w3KhfuxqFatoumata Chase Other [facility] Other 06-12-2023 14:00-0400Body .29 kgFatoumata Chase Other [facility] Other 06-12-2023 14:00-0400Diastolic blood qqezdmqe28 mm[Hg] Fatoumata Chase Other [employer] Other 06-12-2023 14:00-0400Systolic blood mm[Hg] Fatoumata Chase Other [facility] Other 05-04-2023 14:30-0400Body .53 Marily Castelan Other [facility] Other 05-04-2023 14:30-0400Body mass index (BMI) [Ratio] 24.45 kg/o0Tudczx Annelise Other [facility] Other 05-04-2023 14:30-0400Body laiscp27.2 kgThjayy Castelan Other [facility] Other 05-04-2023 14:30-0400Diastolic blood ipmhctoe77 mm[Hg] Brendon Castelan Other [facility] Other 05-04-2023 14:30-0400Respiratory rate18 /minBrendon Castelan Other [facility] Other 05-04-2023 14:30-8044FaT8% (BldA) [Mass fraction]93 % Brendon Castelan Other [facility] Other 05-04-2023 14:30-0400Systolic blood cdycvuce424 mm[Hg] Brendon Castelan Other [facility] Other 04-20-2023 12:15-0400Body .53 Marily Castelan Other [facility] Other 04-20-2023 12:15-0400Body mass index (BMI) [Ratio] 24.74 kg/m3Zgvnyi Annelise Other [facility] Other 04-20-2023 12:15-0400Body dtbemj03.11 kgThomas Annelise Other [facility] Other 04-20-2023 12:15-0400Diastolic blood wsjcfqwi67 mm[Hg] Brendon Castelan Other [facility] Other 04-20-2023 12:15-8394JyZ9% (BldA) [Mass fraction]99 % Brendon Castelan Other [facility] Other 04-20-2023 12:15-0400Systolic blood mm[Hg] Brendon Castelan Other [facility] Other 04-06-2023 12:15-0400Body xyebrq468.53 cmThomas Annelise Other [facility] Other 04-06-2023 12:15-0400Body mass index (BMI) [Ratio] 25.76 kg/c8Vxlsev Annelise Other [facility] Other 04-06-2023 12:15-0400Body ggaynl69.29 kgThjayy Castelan Other [facility] Other 04-06-2023 12:15-0400Diastolic blood shbrtjza52 mm[Hg] Brendon Castelan Other [facility] Other 04-06-2023 12:15-1379XeB4% (BldA) [Mass fraction]96 % Brendon Castelan Other [facility] Other 04-06-2023 12:15-0400Systolic blood rdfjskpe197 mm[Hg] Brendon Castelan Other [employer] Other 04-04-2023 15:30-0400Body .53 cmHeidi Elif Other [facility] Other 04-04-2023 15:30-0400Body mass index (BMI) [Ratio] 25.32 kg/r7Iysev Elif Other [facility] Other 04-04-2023 15:30-0400Body snroermvogc49.7 [degF]Staci Elif Other [facility] Other 04-04-2023 15:30-0400Body kyeqwo79.93 kgHeidi Elif Other [facility] Other 04-04-2023 15:30-0400Diastolic blood fdyyvmtd63 mm[Hg] Staci Elif Other [facility] Other 04-04-2023 15:30-0400Respiratory rate20 /minHeidi Elif Other [facility] Other 04-04-2023 15:30-6473UwP9% (BldA) [Mass fraction]97 % Staci Elif Other [facility] Other 04-04-2023 15:30-0400Systolic blood roqorfyy165 mm[Hg] Staci Elif Other [facility] Other 03-23-2023 16:00-0400Body adwuyo493.53 Marily Castelan Other [facility] Other 03-23-2023 16:00-0400Body mass index (BMI) [Ratio] 25.32 kg/h3Zoqlga Annelise Other [facility] Other 03-23-2023 16:00-0400Body kkxqta69.93 kgThomas Castelan Other [facility] Other 03-23-2023 16:00-0400Diastolic blood xkkhierx07 mm[Hg] Brendon Castelan Other [facility] Other 03-23-2023 16:00-0400Systolic blood ipjrsxqu397 mm[Hg] Brendon Castelan Other [facility] Other [id number] 15:45-0500Body ygxpga369.53 cmThomas Castelan Other [facility] Other [id number] 15:45-0500Body mass index (BMI) [Ratio] 25.32 kg/g0Tnftsk Castelan Other [facility] Other 01-16-2023 15:45-0500Body hqzmzjetizq34.1 [degF]Brendon Castelan Other [facility] Other 01-16-2023 15:45-0500Body ptdtse20.93 kgThjayy Castelan Other [facility] Other 01-16-2023 15:45-0500Diastolic blood rbwdplja07 mm[Hg] Brendon Castelan Other [facility] Other 01-16-2023 15:45-0500Respiratory rate18 /minThjayy Annelise Other [facility] Other 01-16-2023 15:45-3546HyF7% (BldA) [Mass fraction]98 % Brendon Castelan Other [facility] Other 01-16-2023 15:45-0500Systolic blood dxjqobhn591 mm[Hg] Brendon Castelan Other [facility] Other 12-22-2022 14:00-0500Body koatvy695.53 cmThomas Castelan Other [facility] Other 12-22-2022 14:00-0500Body mass index (BMI) [Ratio] 25.09 kg/t6Fayipd Annelise Other [facility] Other 12-22-2022 14:00-0500Body uumrorrqqfs46.3 [degF]Brendon Castelan Other [facility] Other 12-22-2022 14:00-0500Body ilvrgz79.2 kgThjayy Annelise Other [facility] Other 12-22-2022 14:00-0500Diastolic blood zklhgcim44 mm[Hg] Brendon Castelan Other [facility] Other 12-22-2022 14:00-1357XbI9% (BldA) [Mass fraction]93 % Brendon Castelan Other [facility] Other 12-22-2022 14:00-0500Systolic blood rsxuwzdd005 mm[Hg] Brendon Castelan Other [facility] Other 12-15-2022 12:00-0500Body uevzjk655.53 cmHeidi Elif Other [employer] Other 12-15-2022 12:00-0500Body mass index (BMI) [Ratio] 25.47 kg/c9Mfnyf Elif Other [facility] Other 12-15-2022 12:00-0500Body bwdvhlhyuzu93.7 [degF]Staci Elif Other [facility] Other 12-15-2022 12:00-0500Body jqcgua66.38 kgHeidi Elif Other [facility] Other 12-15-2022 12:00-0500Diastolic blood iusffrba18 mm[Hg] Staci Elif Other [facility] Other 12-15-2022 12:00-0500Respiratory rate20 /minHeidi Elif Other [facility] Other 12-15-2022 12:00-0550WhQ2% (BldA) [Mass fraction]99 % Staci Elif Other [facility] Other 12-15-2022 12:00-0500Systolic blood wrwckhud748 mm[Hg] Staci Elif Other [facility] Other 11-03-2022 16:30-0400Body agwxgh760.53 cmTestevanas Castelan Other [employer] Other 11-03-2022 16:30-0400Body mass index (BMI) [Ratio] 25.47 kg/d3VabfijBrendon Castelan Other [employer] Other 11-03-2022 16:30-0400Body ewuhfafadnk73.8 [degF]Brendon Castelan Other [facility] Other 11-03-2022 16:30-0400Body bbbbyh82.38 kgBrendon Castelan Other [facility] Other 11-03-2022 16:30-0400Diastolic blood rxaquffv82 mm[Hg] Brendon Castelan Other [facility] Other 11-03-2022 16:30-0400Respiratory rate20 /minBrendon Castelan Other [facility] Other 11-03-2022 16:30-1461XmH1% (BldA) [Mass fraction]97 % Brendon Castelan Other [facility] Other 11-03-2022 16:30-0400Systolic blood zxbcnusb019 mm[Hg] Brendon Castelan Other [facility] Other 11-02-2022 10:15-0400Body qlceib249.53 cmHeidi Elif Other [facility] Other 11-02-2022 10:15-0400Body mass index (BMI) [Ratio] 25.18 kg/t9Nbmzk Elif Other [facility] Other 11-02-2022 10:15-0400Body fedurcdscgi63.7 [degF]Staci Elif Other [facility] Other 11-02-2022 10:15-0400Body .47 kgHeidi Elif Other [employer] Other 11-02-2022 10:15-0400Diastolic blood lqlyykxu61 mm[Hg] Staci Elif Other [facility] Other 11-02-2022 10:15-0400Respiratory rate20 /minHeidi Elif Other [facility] Other 11-02-2022 10:15-8359XeE6% (BldA) [Mass fraction]98 % Staci Elif Other [facility] Other 11-02-2022 10:15-0400Systolic blood yppswaty769 mm[Hg] Staci Elif Other [facility] Other 09-22-2022 11:30-0400Body lcquua444.53 Marily Castelan Other [facility] Other 09-22-2022 11:30-0400Body mass index (BMI) [Ratio] 25.03 kg/q6Saesfc Annelise Other [facility] Other 09-22-2022 11:30-0400Body .02 kgThjayy Annelise Other [facility] Other 09-22-2022 11:30-0400Diastolic blood dywflzvo09 mm[Hg] Brendon Castelan Other [facility] Other 09-22-2022 11:30-0400Systolic blood mgcsxyac666 mm[Hg] Brendon Castelan Other [facility] Other 04-25-2022 16:00-0400Body axcvhm550.53 Marily Castelan Other [facility] Other 04-25-2022 16:00-0400Body mass index (BMI) [Ratio] 24.16 kg/c8Vjcnixjayy Hurtadoon Other [facility] Other 04-25-2022 16:00-0400Body cijaal26.3 kgThjayy Castelan Other [facility] Other 04-25-2022 16:00-0400Diastolic blood dobnsiye33 mm[Hg] Brendon Castelan Other [facility] Other 04-25-2022 16:00-0400Respiratory rate18 /minPowerjayy Annelise Other [facility] Other 04-25-2022 16:00-5207ZxM8% (BldA) [Mass fraction]99 % Brendon Castelan Other [facility] Other 04-25-2022 16:00-0400Systolic blood fiapqxxa082 mm[Hg] Brendon Castelan Other [facility] Other 2022 14:30-0400Body zvdiid489.53 Cynthiachris Castelan Other [facility] Other 2022 14:30-0400Body mass index (BMI) [Ratio] 24.16 kg/i2Yygcjz Castelan Other [facility] Other 2022 14:30-0400Body rgohim27.3 kgThjayy Castelan Other [facility] Other 2022 14:30-0400Diastolic blood vruzbuzs86 mm[Hg] Brendon Castelan Other [facility] Other [id number] 14:30-0400Systolic blood vdkluobn244 mm[Hg] Brendon Castelan Other [facility] Other 12-13-2021 14:15-0500Body .53 Marily Castelan Other [facility] Other 12-13-2021 14:15-0500Body mass index (BMI) [Ratio] 24.74 kg/m5Bbfjwnjayy Castelan Other [facility] Other 12-13-2021 14:15-0500Body hwgvez85.11 kgThomas Annelise Other [facility] Other 12-13-2021 14:15-0500Diastolic blood bzwhbuij61 mm[Hg] Brendon Castelan Other [facility] Other 12-13-2021 14:15-0500Systolic blood gukmkruu058 mm[Hg] Brendon Castelan Other [facility] Other 11-18-2021 15:00-0500Body reopii987.53 Marily Castelan Other [employer] Other 11-18-2021 15:00-0500Body mass index (BMI) [Ratio] 24.74 kg/l1Mbrsba Castelan Other [facility] Other 11-18-2021 15:00-0500Body httevd30.11 kgThjayy Castelan Other [facility] Other 11-18-2021 15:00-0500Diastolic blood ykgznlwm94 mm[Hg] Brendon Castelan Other [employer] Other 11-18-2021 15:00-0500Respiratory rate18 /minBrendon Castelan Other [employer] Other 11-18-2021 15:00-1709ZzK7% (BldA) [Mass fraction]98 % Brendon Castelan Other [employer] Other 11-18-2021 15:00-0500Systolic blood gwfvidjv358 mm[Hg] Brendon Castelan Other [facility] Other 11-16-2021 14:15-0500Body ifxgqh437.53 cmBobby Ramesh Other [facility] Other 11-16-2021 14:15-0500Body mass index (BMI) [Ratio] 24.74 kg/m0PoeezBobby Ramesh Other [employer] Other 11-16-2021 14:15-0500Body nesbfwzhxjw35 [degF]Bobby Ramesh Other [employer] Other 11-16-2021 14:15-0500Body .11 kgDaaurelio Ramesh Other [employer] Other 11-16-2021 14:15-0500Diastolic blood welgtkie58 mm[Hg] Bobby Ramesh Other [facility] Other 11-16-2021 14:15-5577RlV7% (BldA) [Mass fraction]97 % Bobby Ramesh Other [employer] Other 11-16-2021 14:15-0500Systolic blood obvampmv848 mm[Hg] Bobby Ramesh Other [employer] Other 10-22-2021 15:30-0400Body .53 cmPamelelaine Hill Other [facility] Other 10-22-2021 15:30-0400Body mass index (BMI) [Ratio] 24.74 kg/f7Zigiownela Hill Other [facility] Other 10-22-2021 15:30-0400Body jwfscrylcgp540.4 [degF] Palma Yimond Other [facility] Other 10-22-2021 15:30-0400Body .11 kgPanela Hill Other [facility] Other 10-22-2021 15:30-0400Respiratory rate18 /minPalma Hill Other [facility] Other 10-22-2021 15:30-1302OxO6% (BldA) [Mass fraction]94 % Palma Hill Other [facility] Other 09-09-2021 15:30-0400Body avzbis406.53 Marily Castelan Other [employer] Other 09-09-2021 15:30-0400Body mass index (BMI) [Ratio] 24.89 kg/e4UmkzntBrendon Castelan Other [employer] Other 09-09-2021 15:30-0400Body hacvrc36.57 kgBrendon Castelan Other [facility] Other 09-09-2021 15:30-0400Diastolic blood mm[Hg] Brendon Castelan Other [employer] Other 09-09-2021 15:30-0400Respiratory rate16 /minBrendon Castelan Other [employer] Other 09-09-2021 15:30-5175TlD0% (BldA) [Mass fraction]98 % Brendon Hurtadoon Other [facility] Other 09-09-2021 15:30-0400Systolic blood xzevkuqq315 mm[Hg] Brendon Castelan Other [facility] Other Encounters Encounter DateEncounter TypeCare ProviderFacilityStart: 07-19-2025 End: 05-91-4286Muyhcy Marco Kincaid DPM Work Phone: noCTSpace[facility] PodiatryStart: 07-19-2025 End: 97-03-6723Cswzqf flowsJavier S Sanjiv DPM Work Phone: [facility] PodiatryStart: 07-19-2025 End: 48-76-6250Ooldsj follow up visit related to original Adi S Sanjiv DPM Work Phone: noCTSpaceTulsa PodiatryComment on above:Hammer toes of both feet (Primary Dx); Equinus contracture of left ankle; Equinus contracture of right ankle; Lymphedema; Diabetic polyneuropathy associated with type 2 diabetes mellitus (HCC)Start: 07-19-2025 End: 58-96-7735firnjbdxobFDZSAXL S RUSHERNot AvailableStart: 75-43-0710Enpbtjort for other preprocedural examinationCHRISTOPHER [facility] Hospitaltart: 07-09-2025 End: 94-92-2948vicevsmaedCJGSIIBEDVV [facility] Start: 07-07-2025 End: 73-83-9436tqevbcbqqaKPYLNJXGNCZ [facility] Start: 06-28-2025 End: 58-88-7776Qxpevn flowsJavier Kincaid DPM Work Phone: noGeneral acute hospitalt PodiatryStart: 06-28-2025 End: 16-01-4644Eerxth flowsheetStephon S Sanjiv DPM Work Phone: [facility]iatryStart: 06-28-2025 End: 57-22-1811Yzicjo follow up visit related to original pxStephon Kincaid DPM Work Phone: noms [place] PodiatryComment on above:Hammer toes of both feet (Primary Dx); Equinus contracture of left ankle; Equinus contracture of right ankle; Lymphedema; Diabetic polyneuropathy associated with type 2 diabetes mellitus (HCC)Start: 06-28-2025 End: 27-75-9269rliaoyrjwpSQWRUTF S RUSHERNot AvailableStart: 06-14-2025 End: 25-64-3503Zmipxx flowsheetAnthyumiko Kincaid DPM Work Phone: noGeneral acute hospitalt PodiatryStart: 06-14-2025 End: 65-60-1524Ohucve flowsheetAnthyumiko S Sanjiv DPM Work Phone: noGeneral acute hospitalt PodiatryStart: 06-14-2025 End: 86-29-3821Lozjtd outpatient visit 15 minutesAnthyumiko Kincaid DPM Work Phone: [facility] PodiatryComment on above:Diabetic polyneuropathy associated with type 2 diabetes mellitus (HCC) (Primary Dx); 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, without long-term current use of insulin (HCC); Lymphedema; Hammer toes of both feet; Equinus contracture of left ankle; Equinus contracture of right ankleStart: 06-14-2025 End: 46-89-5407ubrabegzwkILBINZN Seamus KINCAIDNot AvailableStart: 06-08-2025 End: 35-54-6853sdqyhgwbeqKuynok E Braun MD Work Phone: [facility] Work Phone: Start: 06-08-2025 End: 51-66-2592Qokpajx encounter procedureFatoumata Chase MD-[facility] Work Phone: Start: 05-04-2025 End: 97-63-8975Khuvcr outpatient visit 15 minutesCaramandeep Miranda DPM Work Phone: noms [place] PodiatryComment on above:Onychomycosis (Primary Dx); Pain in both feet; 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, without long-term current use of insulin (HCC); Lymphedema; Hammer toes of both feetStart: 05-04-2025 End: 43-26-3256mhcdfvmfrrZIKTPUGAG H SMITHNot AvailableStart: 05-04-2025 End: 78-04-5069Ktrkmd flowsheetJimmy Miranda DPM Work Phone: [facility]oms [facility] PodiatryStart: 05-04-2025 End: 23-73-7555Lysiet flowsPapito Miranda DPM Work Phone: noms [facility] PodiatryStart: 02-02-2025 End: 33-32-3828Upnxco outpatient visit 10 minutesZulema Reid MD Work Phone: [facility] DERMComment on above:Seborrheic keratosis (Primary Dx); Neoplasm of unspecified behavior of bone, soft tissue, and skin; Seborrheic keratosis, inflamedStart: 02-02-2025 End: 68-33-3091ehflnmeztcWXQKU A PETITTINot AvailableStart: 02-02-2025 End: 50-02-2528Plbrqmstacia Reid MD Work Phone: noms [facility] DERMStart: 02-02-2025 End: 24-46-9807Fshowm Mauir Reid MD Work Phone: noms [facility] DERMStart: 01-18-2025 End: 79-45-4767Bhlamfh encounter procedureJimmy Miranda DPM Work Phone: noms [facility] PODIATRYComment on above:Onychomycosis (Primary Dx); Pain in both feet; 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 Work Phone: Start: 03-05-2024 End: 22-82-1956Yumnoeu encounter procedureFirfalls churchs [facility]ician [facility] Work Phone: Start: 01-28-2024 End: 80-70-9284Lpotxiw encounter procedureFirfalls churchs Physician Group-[facility] Pulmonary Disease Work Phone: Start: 01-01-2024 End: 63-49-4385jfsiqychwhZqkpthfkdOhioHealth [facility] Work Phone: Start: 01-01-2024 End: 39-10-1020Tbthogh encounter procedureFirfalls churchs [facility]ician [facility] Work Phone: Start: 19-78-4441Chi-patient / Non-visitFormerly [facility] Work Phone: Start: 12-02-2023 End: 43-76-3380lzinitrxwmOwsdlcixpOhioHealth [facility] Work Phone: Start: 12-02-2023 End: 68-05-6144Dodcqvd encounter procedureFirdamions Physician Group-[facility] Work Phone: Start: 99-93-2794Ttk-patient / Non-visitFirsiva Physician Group-[facility] Work Phone: Start: 08-01-2023 End: 48-05-6727threwfnortQwtura Braun Other [employer] Other Start: 76-42-7854Csevnn outpatient visit 15 minutes Fatoumata RanjanAtrium Health Harrisburgtart: 07-25-2023 End: 91-09-0040hngsnowaigByorowqu Rohrbacher Other [employer] Other Start: 97-89-9206Mfawpdcge encounterMorena SantanaStar Valley Medical Centertart: 07-24-2023 End: 67-47-6715pcciwzcaxzEawqiyhg Aliyarbacher Other [employer] Other Start: 06-09-8740Hwgeci outpatient visit 15 minutes Morena PisanoWonMagruder Memorial Hospitaltart: 07-16-2023 End: 72-26-7834bvbnkzzcymRunblb Salvatore Other [employer] Other Start: 38-37-8664Xojklp outpatient visit 25 minutes Fatoumata ChaseOhioHealth Arthur G.[facility] MD, Cancer Centertart: 05-24-2023 End: 49-26-1685htlllgllnzYcdnms WilliamsonFacility:[facility]ontart: 05-22-2023 End: 26-57-6892tejrfklwndMjmoia Salvatore Other no[employer] Other Start: 91-12-8672Ivrhhwoat encounterMarcielaine [facility]Ohio[facility]. [facility], MD, Cancer Centertart: 05-21-2023 End: 41-78-9151yjfrlfzqrcYpmgxa Chase Other [employer] Other Start: 53-81-5966Cqcpzssix encounterMarcia RanjanG [facility] ClinicStart: 05-08-2023 End: 18-41-9568xhhlkojttvMntfhs Chase Other [employer] Other Start: 40-44-7803Xggunkqjm encounterMarcia RanjanG [facility] ClinicStart: 04-26-2023 End: 99-92-2367loikexghavGyrvqr Chase Other [employer] Other Start: 97-36-7683Suusxvvathgx care manage srvc 14 day dischargeMarcia [facility] ClinicStart: 04-22-2023 End: 15-30-9707mwxqwkiqcxTcufyu Chase Other [employer] Other Start: 28-10-7991Gvozpskdh encounterMarcia [facility] ClinicStart: 04-17-2023 End: 48-17-3495zswdyjjpkwVzxwnz Chase Other [employer] Other Start: 36-59-3046Cvisxuepn encounterMarcia RanjanG [facility] ClinicStart: 04-15-2023 End: 88-20-7236jksbuqysvgBvdfvr Chase Other [employer] Other Start: 03-78-5255Osdwlcfcq encounterMarcia RanjanG [facility] ClinicStart: 69-29-5954Yxlxuwvle encounterMarcia RanjanG [facility] ClinicStart: 04-03-2023 End: 68-62-9634owvyjdlhqgUF Thomas Williamson Work Phone: [facility] Work Phone: Start: 04-03-2023 End: 28-28-1908Lmbygzp encounter procedureMD Brendon Annelise Work Phone: [facility] Work Phone: Start: 03-26-2023 End: 17-32-1192iwqnbpvjxiAhwrnf Chase Other [employer] Other Start: 67-87-9109Ucsvdjkzh encounterMarcia BraunLUCASG [facility] ClinicStart: 03-25-2023 End: 90-01-1643ucltbsfuzpRoshsy Chase Other [employer] Other Start: 26-51-0687Rqpkjsevm encounterMarcia BraunLUCASG [facility] ClinicStart: 03-18-2023 End: 07-83-1606lripcmdvgyGfques Chase Other [employer] Other Start: 78-56-7494Rxdenujes encounterMarcia BraunG [facility] ClinicStart: 03-13-2023 End: 57-11-5243dpibgimvaoXgidnw Annelise Other [employer] Other Start: 38-16-5781Hkxbjnjqv encounterThomas Annelise [facility] CareStart: 03-05-2023 End: 16-59-3894zdxyjsvixhCxemdk Chase Other [employer] Other Start: 13-45-5006Dcyellcpc encounterMarcia BraunLUCASG [facility] ClinicStart: 03-02-2023 End: 69-99-4671mgbfmngywgYnbcga Chase Other [employer] Other Start: 25-17-9413Ykyjcnthm encounterMarcia BraunLUCASG [facility] ClinicStart: 02-28-2023 End: 35-43-3966gtlyjiakthZwbgiv Chase Other [employer] Other Start: 47-45-3515Pvqqotjnx encounterMaryaquelin [facility] Primary CareStart: 02-25-2023 End: 56-77-5942kncfjorbirLzqvcj Salvatore Other [employer] Other Start: 74-46-0036Gymbew outpatient new 45 minutes Fatoumata RanjanFidelina El Campo Memorial Hospitaltart: 01-25-2023 End: 27-59-2906Qwfwjtbfzs and management of inpatientDR CHON LYNCH Facility:D1Toqqw: 01-24-2023 End: 23-71-4437rjxirqouaqHzrbos Annelise Other [employer] Other Start: 50-62-7668Cqbbohnvr encounterThomas Castelan [facility] CareStart: 01-21-2023 End: 75-51-3268vfvstyfkqgFbqzve Castelan Other [employer] Other Start: 43-08-6351Ozgwysxzt encounterThomas Castelan [facility] CareStart: 01-17-2023 End: 23-12-0980Nzejsxt encounter procedureMD Brendon Annelise Work Phone: [facility] [place] Work Phone: Start: 01-17-2023 End: 91-10-7762vsvewrmphvOrayvx BryantSaint [facility] [employer] Other Start: 08-41-0886Wrnels outpatient visit 25 minutes Brendon CastelanFPG [facility] CareStart: 47-44-9437Ezddsadhz encounter Brendon CastelanFPG [facility] CareStart: 01-11-2023 End: 05-44-3796pjciukfpxyPlgokm Castelan Other [employer] Other Start: 50-07-9169Xnhtbwfeq encounterThomas Castelan [facility] CareStart: 01-08-2023 End: 33-45-1013udocussusfAmcvel Castelan Other [employer] Other Start: 65-32-4813Lvbmrkalw encounterThomas Castelan [facility] CareStart: 34-55-6932Aftlby outpatient visit 25 minutesThomas WilliamsonFPG [facility] CareStart: 80-98-1877Nuwjagtji encounterThomas WilliamsonFPG [facility] CareStart: 01-03-2023 End: 58-70-6686pnghuljlkvMpbswx WilliamsonFacility:[facility]ontart: 01-03-2023 End: 34-34-1097tsdqperwooLB Brendon Castelan Work Phone: [facility] Work Phone: Start: 01-03-2023 End: 33-59-2278Yxmywia encounter procedureMD Brendon Castelan Work Phone: [facility] [place] Work Phone: Start: 01-02-2023 End: 22-84-2416luthujrfszEtctwx Castelan Other [employer] Other Start: 70-16-3108Gropuenqv encounterThomas Castelan [facility] CareStart: 12-20-2022 End: 28-43-3087vqdsxzlpbdXhjtep Castelan Other [employer] Other Start: 33-19-9094Hkfcqo outpatient visit 25 minutes Brendon CastelanFPG [facility] CareStart: 12-19-2022 End: 42-71-1541zumxllbxkjUteudu Castelan Other [employer] Other Start: 22-20-9290Vxbnqjjgf encounterThomas Castelan [facility] CareStart: 12-18-2022 End: 67-19-5585dkfulloiykUkqmt Elif Other [employer] Other Start: 69-27-8542Qxtpry outpatient visit 25 minutes Staci GastFPG Pulmonary DiseaseStart: 47-40-2372Gfulssbps encounterThjayy CastelanFPG [facility] CareStart: 12-14-2022 End: 01-26-7251dlffwjdwrtUhjzbi Castelan Other [employer] Other Start: 14-63-9040Kukuaczcb encounterThjayy Castelan [facility] CareStart: 12-06-2022 End: 50-73-1394fszguqdgxdGprzuy Castelan Other [employer] Other Start: 63-15-9373Tfhssy outpatient visit 25 minutes Brendon CastelanFPG [facility] CareStart: 92-33-0511Zlpzqtggx encounter Brendon CastelanFPG [facility] CareStart: 11-29-2022 End: 89-13-5462zfuemeifebNqgkyj Williamson Other [employer] Other Start: 78-10-2324Ezezwuphe encounterThomas Annelise [facility] CareStart: 11-26-2022 End: 37-47-0789ufnleuwozdAcnqq GastFacility:[facility] Start: 11-26-2022 End: 11-02-3540dedvumngzcIS Brendon Castelan Work Phone: [facility] Work Phone: Start: 11-26-2022 End: 69-39-7148Iwnpmss encounter procedureMD Brendon Castelan Work Phone: [facility] [place] Work Phone: Start: 11-20-2022 End: 30-41-4127mbrbzkjqvhSeqjpb Williamson Other [employer] Other Start: 91-41-3297Ajwtseupj encounterThomas Castelan [facility] CareStart: 10-13-2022 End: 47-68-5600cuwinuvqncIF DOCTOR MISCFacility:D9Rjouk: 10-01-2022 End: 39-56-3425veamaqparlQpanwd Castelan Other [employer] Other Start: 67-21-6952Qhnozn outpatient visit 25 minutes Brendon CastelanFPG [facility] CareStart: 09-06-2022 End: 21-20-2440slbqgwxilmDrgzde Castelan Other [employer] Other Start: 73-96-4176Kpeqjk outpatient visit 25 minutes Brendon CastelanFPG [facility] CareStart: 09-04-2022 End: 18-79-7158pgtkiglqrmHgfvjl Castelan Other [employer] Other Start: 21-54-9899Khpzmmqxh encounterThomas Castelan [facility] CareStart: 08-30-2022 End: 07-66-5085cqvkojbeuuWspqp Elif Other [employer] Other Start: 37-66-5232Iaxawc outpatient visit 25 minutes Staci GastFPG Pulmonary DiseaseStart: 08-28-2022 End: 83-09-3965cdqcidfpbpGhxqtc Castelan Other [employer] Other Start: 14-50-9510Gubazrvlf encounterThomas Castelan [facility] CareStart: 07-31-2022 End: 91-41-2213pukbodwhclZrbdmi Castelan Other [employer] Other Start: 40-11-7384Loqlrngnz encounterThomas Castelan [facility] CareStart: 07-19-2022 End: 24-48-1363grnokfwjyxZcgdnf Castelan Other [employer] Other Start: 78-63-5579Lqfehb outpatient visit 25 minutes Brendon HurtadovivekFPG [facility] CareStart: 07-18-2022 End: 29-74-8823welykqgaueQkrec Elif Other [employer] Other Start: 84-20-2096Zxqour outpatient new 45 minutesHeidi GastFPG Pulmonary DiseaseStart: 38-71-5192Upcusawof encounterHeidi GastFPG Referral CoordinatorStart: 06-28-2022 End: 37-46-9002hnfsigvblhKleadr Castelan Other [employer] Other Start: 68-25-4793Gadtexcnc encounterThomas Castelan [facility] CareStart: 06-20-2022 End: 15-17-1623zvybaxevxeVwtoym Castelan Other [employer] Other Start: 67-21-2289Vhkznlznh encounterThomas Castelan [facility] CareStart: 06-18-2022 End: 69-27-7664mczcgbezerKgilwz Castelan Other [employer] Other Start: 17-17-7822Uueymhilx encounterThomas Castelan [facility] CareStart: 06-15-2022 End: 98-03-0136mnxnwoqkpzTrdnmr WilliamsonFacility:[facility]art: 06-11-2022 End: 95-79-4372ajtdcwdytfXkbdim Castelan Other [employer] Other Start: 17-00-9999Xaespitss encounterThomas Castelan [facility] CareStart: 06-08-2022 End: 02-17-4376mpsxzceahfNkhwks WilliamsonFacility:[facility]ontart: 06-08-2022 End: 51-91-3175Hytdkbt encounter procedureMD Brendon Castelan Work Phone: [facility] [place] Start: 81-56-0186yvxyxdlsbjZgqysbdl:9090Start: 06-07-2022 End: 59-68-0655hykelziqpmVskcwy Williamson Other [employer] Other Start: 04-89-5646Jrwiwg outpatient visit 25 minutes Berndon TomlinsonG [facility] CareStart: 11-35-4377Awjxkgvxn encounter Brendon [facility]iron Primary CareStart: 06-04-2022 End: 44-54-0190zydgwculvxLathbh Williamson Other [employer] Other Start: 39-78-0145Ifhmohbpd encounterThomas Annelise [facility] CareStart: 05-31-2022 End: 20-88-4916ixteuzrllmIysmbs Williamson Other [employer] Other Start: 30-31-9959Nfuqlphou encounterThomas Annelise [facility] CareStart: 05-26-2022 End: 61-55-4254Ucikjcq encounter procedureMD Brendon Castelan Work Phone: [facility] CampusStart: 05-24-2022 End: 86-13-0964reciinkbubRbuvzv Williamson Other [employer] Other Start: 94-80-2280Bzljsplis encounterThomas Annelise [facility] CareStart: 05-17-2022 End: 16-94-1776Uwzreaa encounter procedureMD Brendon Castelan Work Phone: [facility] [place]Start: 05-09-2022 End: 01-12-4646jftqkvxefyUymewi Williamson Other [employer] Other Start: 44-84-1585Jqxnfywnr encounterThomas Castelan [facility] CareStart: 05-07-2022 End: 16-75-4889tnanavoiumYxdroe Castelan Other [employer] Other Start: 25-97-3664Jgplskkax encounterThomas Castelan [facility] CareStart: 04-30-2022 End: 68-96-7061omlxqmqaaaYvlmwp Castelan Other [employer] Other Start: 11-72-5339Rhyxnvtbz encounterThomas Castelan [facility] CareStart: 03-02-2022 End: 18-57-0713lgezxuuephIN DOCTOR MISCFacility:K8Anwbs: 02-14-2022 End: 35-07-1635eduwjzwidrQkxaey Castelan Other [employer] Other Start: 08-95-4029Imwedcoiv encounterThomas Castelan [facility] CareStart: 02-13-2022 End: 23-07-2538cjkcvhyjmlVfijge Castelan Other [employer] Other Start: 74-17-8345Ombihcxke encounterThomas Castelan [facility] CareStart: 02-13-2022 End: 40-63-8365Zrtfsruvyp and management of inpatientDR DOCTOR MISCFacility:H1 Start: 01-08-2022 End: 20-81-7204anffdblcnkSzvvbi Castelan Other [employer] Other Start: 87-46-1044Ojbjxc outpatient visit 25 minutes Brendon BryantonFPG [facility] CareStart: 12-18-2021 End: 48-89-4179ehuucpojrsXvgaai Castelan Other [employer] Other Start: 05-26-4071Sffvbiwck encounterThomas Castelan [facility] CareStart: 11-30-2021 End: 70-69-5788czresekfofGckqez Annelise Other [employer] Other Start: 31-70-3522Xtcicy outpatient visit 15 minutes Brendon [facility] Primary CareStart: 10-16-2021 End: 17-37-4577esmzttquhiEzysii Williamson Other [employer] Other Start: 35-76-5531Yctxsdzja encounterThomas Annelise [facility] CareStart: 08-28-2021 End: 92-55-0253jclxdheulvZcnpvk Williamson Other [employer] Other Start: 15-13-0948Hxwyep outpatient visit 25 minutes Brendon [facility] CareStart: 08-03-2021 End: 73-85-6148suyesjdtmaVoqvoo Williamson Other [employer] Other Start: 03-80-4002Cetkev outpatient visit 15 minutes Brendon [facility] CareStart: 08-01-2021 End: 89-85-4502tfuuhdnqydOgiqm Morris Other [employer] Other Start: 02-93-5206Jpsbnl outpatient visit 15 minutes Bobby RameshBluffton Hospital SouthStart: 67-39-6105Lpkvrydil encounter Brendon [facility] Primary CareStart: 59-85-7437Vayvgd outpatient visit 15 minutesPanela [facility] ClydeStart: 20-91-0936Wzvdytzpa encounter Brendon [facility] Primary CareStart: 05-25-2021 End: 86-39-2178otcvehycbvQthvxh Williamson Other [employer] Other Start: 70-36-8341Tovqia outpatient visit 25 minutes Brendon TomlinsonFidelina [facility] Procedures DateProcedureProcedure DetailPerforming ClinicianStart: 86-52-3095RAOVMETGTJT SKIN LESIONEmily Elaine Reid MD Work Phone: Start: 39-36-3912WFJM / NAIL BIOPSYEmily Elaine Reid MD Work Phone: Start: 92-86-6832Jhmjk cultureMD Brendon Hurtadoon Work Phone: Start: 89-43-9402GG of chest without contrastMD Brendon Hurtadoon Work Phone: Start: 26-54-2362ZE of chest without contrastMD Brendon Annelise Work Phone: Start: 44-40-2064Crcwu chest X-rayMD Brendon Castelan Work Phone: Plan of Treatment DateCare ActivityDetailAuthorStart: 08-10-2025 End: 56-46-3442Ijtpgir encounter ntakfqzkq01/25/2025 10:15 AM EST Procedure Visit [facility] [address] [place] [phone] Jimmy Miranda DPM [address] [place] [address] EM [facility] PodiatryStart: 07-19-2025 End: 35-96-4475Ucywsva encounter kfilryuar10/03/2025 2:00 PM EST Office Visit [facility] [address] [place] [phone] Stephon Kincaid DPM [address] [place] [id number] Nehemias Rush PodiatryComment on above:ArrivedStart: 06-28-2025 End: 65-63-8279Mpbqclg encounter bqbbqehkn37/13/2025 9:30 AM EDT Office Visit [facility] [address] [place] [address] Stephon Kincaid DPM [address] [place] [address] AlejandraMS [facility] PodiatryComment on above:ArrivedStart: 06-14-2025 End: 09-67-4585Zpwpvfk encounter elprqyqqg67/29/2025 2:00 PM EDT Office Visit LEVSeamus [facility] [address] [place] [address] Stephon Kincaid DPM [address] [place] [address] 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, without long-term current use of insulin (HCC); Lymphedema; Hammer toes of both feetNOAR Adri PodiatryComment on above: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, without long-term current use of insulin (HCC); Lymphedema; Hammer toes of both feetStart: 05-04-2025 End: 49-17-0006Wlfshuq encounter rdzbesght29/19/2025 3:15 PM EDT Procedure Visit [facility] [address] [place] [phone] Jimmy Miranda, DPM [address] [place] [address] ArrivedDONOVANMS ValladaresJustin PodiatryComment on above:ArrivedStart: 04-21-2025 End: 66-13-5407Vschcmd encounter pbfxujzdb77/06/2025 2:30 PM EDT Procedure Visit [facility] [address] [place] [address] Jimmy Miranda, DPM [address] [place] [address] LEVS SWS PODIATRYStart: 02-02-2025 End: 42-63-8888Bpkarne encounter procedureNO [facility] DERMComment on above:Arrived Start: 01-18-2025 End: 98-96-4715Hxpyevo encounter bmvnghtax35/05/2025 3:15 PM EDT Procedure Visit NOMSeamus [facility] [address] [place] [phone] Jimmy Miranda, DPM [address] [place] [address] ArrivedNO SWS PODIATRYComment on above:ArrivedStart: 10-20-2024 End: 85-65-6931Swnxdvg encounter /04/2025 2:15 PM EST Procedure Visit [facility] [address] [place] [phone] Jimmy Miranda, DPM [address] [place] [address] ArrivedNO SWS PODIATRYComment on above:ArrivedStart: 35-24-1126Pcwkvry referralUc [facility] Work Phone: Start: 03-61-2632Kgwdfqjr identified in Urine by [facility] HospitalComprehensive metabolic 2000 panel - Serum or PlasmaBerger HospitalDermatopathology exam Dermatopathology exam Pathology and Cytology Timed Neoplasm of unspecified behavior of bone, soft tissue, and skin Release Upon Ordering for 1 Occurrences starting 02/02/2025[facility] Work Phone: comment on above:Release Upon Ordering for 1 Occurrences starting 02/02/2025EKG 12 channel panelBerger HospitalPatient referralUc West [facility] Hospital Work Phone: [facility] TransthoracicBayfront Health St. [facility] Immunizations Immunization DateImmunizationNotesCare NdtwgmcmKdqkzhsb62-69-8443peftejcnm, high dose seasonal, preservative-freeBerger Hospital11-03-2022 influenza, high dose seasonal, preservative-freeHeidi Elif Other [employer] Other 11226728-10-4915jajxsuweh virus vaccine, unspecified formulationBerger Hospital12-14-2021COVID-19 Vaccine Moderna - Documentation Purposes OnlyHeidi Elif Other [facility]11-18-2021influenza, high dose seasonal, preservative-freeThomas Castelan Other [employer] Other 11220374-65-7815ovevebtbv virus vaccine, unspecified formulationBerger Hospital03-09-2021COVID-19 Vaccine Moderna - Documentation Purposes OnlyHeidi Elif Other [facility]02-08-2021COVID-19 Vaccine Moderna - Documentation Purposes OnlyHeidi Elif Other [facility]10-23-2020influenza virus vaccine, unspecified formulationBer[facility] Hospital 29-82-4015atajbrqcq, high dose seasonal, preservative-freeThomas Castelan Other [employer] Other 09440610-98-0551syrutxaehtjf polysaccharide vaccine, 23 valentThomas Castelan Other [facility]01-25-2018Toradol per 15 mgThomas Castelan Other [employer] Other 11-217046-15-6998wxbcdfpwl, injectable, quadrivalent, contains preservativeThomas Castelan Other [employer] Other 11-722493-00-0928jpskumqzi, injectable, quadrivalent, preservative freeBerger Hospital05-16-2017pneumococcal conjugate vaccine, 13 valentThomas Castelan Other [facility]10-18-2016influenza, injectable, quadrivalent, contains preservativeThomas Castelan Other [place] [employer] Other 10872712-15-4140cyqbtjyvr, injectable, quadrivalent, preservative freeBerger Hospital10-20-2014influenza, injectable, quadrivalent, contains preservativeThomas Castelan Other [facility]10-11-2012influenza, injectable, quadrivalent, contains preservativeThomas Castelan Other [facility] Payers DatePayer CategoryPayerPolicy [id number] ..[id number] Health InsuranceAARP .[id number] AARP [id number] 2002-Present [address] [place] [address] .[id number] [id number] .4.602601.5814-02-1937 [id number] 2.16.840.1.674117.3.57[id number] 2.16840.1.111027.3.57[id number] 2.16840.1.581059.3.57[id number] 2.16840.1.273767.3.579.2.49336-16-5967Vcykake9487325 2.16840.1.637834.3.57[id number] 2.840.1.412895.3.57[id number] 2.840.1.711253.3.57[id number] 2.840.1.045151.3.57[id number] 2.840.1.756250.3.579.2.[id number] 2.840.1.705441.3.579.2.210997-80-3934Glibegl2959911 2.840.1.537435.3.579.2.[id number] 2.840.1.855932.3.579.2.6909Ewul[id number] 2.16840.1.448354.3.579.2.507Widuckx80017500 2.16840.1.604408.3.579.2.531 [id number] 2.16840.1.2[id number] 2.16.840.1.814976.3.579.2.507Lcayynq30331249 2..840.1.906387.3.579.2.531 [id number] 2.16.840.1.9[id number] 2..840.1.262631.3.579.2.531 Social History DateTypeDetailFacilityUnknown if ever smokedNorth Las [place] [employer] Other Start: 05-04-2024 End: 80-41-5013Sri Assigned At [facility] [employer] Other Start: 07-07-2021 End: 18-27-9367Opgtmoa smoking status NHISNever smoked tobacco (finding) [facility]art: 85-57-8452Glh Assigned At [facility] Hospitaltart: 52-37-1513Bjdzavx use and exposure Smokeless tobacco non-userNOMS HealthcareStart: 05-04-2024 End: 01-25-1867Uzgpgahgn beverage intakeDeferNOMS HealthcareStart: 05-04-2024 End: 26-03-7147Ewcejyf of Social functionNOMS HealthcareStart: 33-61-3495Zsq assigned at [facility] mcdowellNot on fileNOAR HealthcareStart: 94-62-9246CwbFxqtuf (finding) [facility]ontart: 64-70-8587CpnPlreydEHFI Healthcare Medical Equipment Procedure CodeEquipment CodeEquipment Original TextEquipment IdentifierDates Start: 93-59-9882Niwlt Sugar Diagnostic (Blood Glucose Test) stripStart: 66-52-5588Qvyru Sugar Diagnostic (Blood Glucose Test) stripStart: 03-06-2024 Blood Sugar Diagnostic (Blood Glucose Test) stripStart: 03-06-2024 Clinical Notes 05-25-2021 to 07-19-2025 Note Date & VarxArsmNeyyvxis86-70-5196 History of Present illness Narrative* Setphon Kincaid, DPM - 07/19/2025 2:00 PM EST [...] CAUDAL INJECTION DEXA KNEE SURGERY PARTIAL HYSTERECTOMY PA LAP,CHOLECYSTECTOMY 2018 PA LASER SURGERY OF EYE 2014 Family History [...] understanding. Stephon Kincaid DPM documented in this encounterSSM DePaul Health CenterEfrrqbgkif53-62-2297 NotePatient: Salma Quan Procedure Information Date/Time: 07/09/25 1100 Procedure: Right heart cath Location: [facility] / [facility] (Cath) Providers: Shruthi Ortega [...] products. Plan discussed with attending. Additional Equipment [facility]sK[facility]10-22-2025 Note Subjective Patient ID: Salma Quan is [...] in L leg . Had been in [facility] with UTI and developed edema in legs [...] Follow up in about 6 weeks (around 08/18/2025).[facility]10-13-20[facility] History of Present illness Narrative* Stephon Kincaid, [...] CAUDAL INJECTION DEXA KNEE SURGERY PARTIAL HYSTERECTOMY PA LAP,CHOLECYSTECTOMY 2018 PA LASER SURGERY OF EYE 2014 Family History [...] E11.42 Patient was measured for diabetic shoes. Vidappnock device was utilized and patient stood in [...] understanding. Stephon Kincaid DPM documented in this encounterSSM DePaul Health CenterIwmccmtptz48-00-4561 History of Present illness Narrative* Stephon Way [...] CAUDAL INJECTION DEXA KNEE SURGERY PARTIAL HYSTERECTOMY PA LAP,CHOLECYSTECTOMY 2018 PA LASER SURGERY OF EYE 2014 Family History [...] understanding. Stephon Kincaid DPM documented in this encounterSSM DePaul Health CenterFsgjhdncfb28-89-1806 History of Present illness Narrative* Jimmy Miranda DPM - 05/04/2025 3:15 PM EDT [...] the patient to go to [facility] in [place] for their DM shoes and inserts. 4. Patient will be contacted for appointment information once pre-certification has been completed if required. documented in this encounterSSM DePaul Health CenterCuuqolrvop44-81-0409 History of Present illness Narrative* Zulema Reid [...] KERATOSIS, INFLAMED (2) Right Dorsal Hand (2) Freedom and brown stuck on verrucous scaly papule [...] limited to risks of scarring, darker or mixer foam rubber pigmentary changes, recurrence, incomplete removal and infection. [...] Visit: pending biopsy results documented in this encounterSSM DePaul Health CenterGwafjrmzgk19-89-3466 History of Present illness Narrative* Jimmy Miranda [...] needed if problems arise. documented in this encounterSSM DePaul Health CenterLkjgcyvkpb78-73-6949 History of Present illness Narrative* Jimmy Miranda [...] needed if problems arise. documented in this encounterSSM DePaul Health CenterDkaruvicms83-25-0170 History of Present illness Narrative* Jimmy Miranda [...] needed if problems arise. documented in this encounterSSM DePaul Health CenterHzhxhnqrjf88-89-9051 Evaluation note* Encounter Date Diagnosis Assessment Notes Treatment Notes Treatment Clinical Notes Jul, Cutaneous candidiasis (ICD-10 - B37.2) hydration and lubrication, dove soap, triple rinse clothing and linens Jul,Type 2 diabetes mellitus with hyperglycemia, without long-term current use of insulin (ICD-10 - E11.65)States was hypoglycemic on Januvia. will stop med and monitor glucose. [employer] Other 11-09-2023 History general Narrative - Reported* Type Description Date Medical History Esophageal reflux Medical Historysleep apnea with cpapMedical HistoryLBPMedical Historyallergic rhinitisMedical Historyhypoglycemia in the morningMedical HistoryHypoglycaemia NOSMedical HistoryLUMBAR SPONDYLOSIS/RADICULOPATHYMedical HistoryHTNMedical HistoryARTHRITISMedical HistoryHLDMedical Historylactose intoleranceMedical HistoryCovid 03/2022 [place] the [place] Historyinterstitial lung disease Medical HistorybronchiectesisSurgical Historybladder surgerySurgical History partial hysterectomySurgical Historyarthroscopic knee surgerySurgical History txmxhilp70/2010Surgical Yuofrvkmvqm15/2009Surgical Historyback Bkhoapp39-0280 Surgical HistoryBilateral cataract surgerySurgical HistoryLaser Eye fwgspmv0297 Surgical HistoryLumbar decompressive ngfunaw7528Upvrmmry Historycholecystectomy 2017Surgical HistoryAblation- Kyoz8783Chjhiacy Historyback kzghqgcyz59/2021 Hospitalization HistoryhysterectomyHospitalization Historybladder surgery Hospitalization HistorySEE ABOVEHospitalization HistoryFR-[id number] Hospitalization WwoasfcXWM6294Ctpmfrfshxyevor HistoryTBH then Will Hospitalization HistoryTBH then Will Junar Other 11-08-2023 Evaluation note* Encounter Date Diagnosis Assessment Notes Treatment Notes Treatment Clinical Notes Jul, Weakness (ICD-10 - R53.1) Pt was unable to collect a urine sample in the office today. Orders given to take to [facility] to collect a sample. Discussed will call with results as soon as available. Pt, pt daughter and verbalzies understanding and agrees to plan of care. Jul,hills (ICD-10 - R68.83) Jul,Frequent UTI (ICD-10 - N39.0) Junar Other 10-31-2023 Evaluation note* Encounter Date Diagnosis [...] back pain is improved from 06/28 OV. Junar Other 10-31-2023 Evaluation note* Encounter Date Diagnosis Assessment Notes Treatment Notes Treatment Clinical Notes Jun, Cough (ICD-10 - R05.9) Jun,Interstitial lung disease (ICD-10 - J84.9)Your breathing test showed minimal change since 06/15/2022. Will observe respiratory symptoms and order testing if and when needed. Jun,neumonitis (ICD-10 - J18.9) Jun,ronchiectasis 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 (ICD-10 - J47.9) Junar Other 10-31-2023 History general Narrative - Reported* Type Description Date Medical History Esophageal reflux Medical Historysleep apnea with cpapMedical HistoryLBPMedical Historyallergic rhinitisMedical Historyhypoglycemia in the morningMedical HistoryHypoglycaemia NOSMedical HistoryLUMBAR SPONDYLOSIS/RADICULOPATHYMedical HistoryHTNMedical HistoryARTHRITISMedical HistoryHLDMedical Historylactose intoleranceMedical HistoryCovid 03/2022 [place] Historyinterstitial lung disease Medical HistorybronchiectesisSurgical Historybladder surgerySurgical History partial hysterectomySurgical Historyarthroscopic knee surgerySurgical History kavvzezd86/2009Surgical Jqkdlositfq22/2009Surgical Historyback Hmodngu61-3203 Surgical HistoryBilateral cataract surgerySurgical HistoryLaser Eye uobejhv5441 Surgical HistoryLumbar decompressive yxrslce8499Tgeejdrg Historycholecystectomy 2018Surgical HistoryAblation- Gfuf1103Krmjlxvu Historyback /2021 Hospitalization HistoryhysterectomyHospitalization Historybladder surgery [facility] [place]bmbruocbhzlvgnv5016 Hospitalization GxxtrhoHMO7676Tvibtizfrsbueyy HistoryTBH then ows02/2022 Hospitalization HistoryTBH then Junar Other 09-07-2023 History general Narrative - Reported* Type Description Date Medical History Esophageal reflux Medical Historysleep apnea with cpapMedical HistoryLBPMedical Historyallergic rhinitisMedical Historyhypoglycemia in the morningMedical HistoryHypoglycaemia NOSMedical HistoryLUMBAR SPONDYLOSIS/RADICULOPATHYMedical HistoryHTNMedical HistoryARTHRITISMedical HistoryHLDMedical Historylactose intoleranceMedical HistoryCovid 03/2022 [place] the [place]Surgical Historybladder surgerySurgical Historypartial hysterectomySurgical Historyarthroscopic knee surgerySurgical Fphjdokjameorzn36/2009Surgical Foinkykosff99/2009Surgical Historyback Surgery -2012Surgical HistoryBilateral cataract surgerySurgical HistoryLaser Eye glgzllm3957Izvombut HistoryLumbar decompressive lagpold9564Hbdtznsb History vhdpmglzoyeqveh6123Kddxgawp HistoryAblation- Zpog1258Mlpqqrzk Historyback ksfljjeix33/2021Hospitalization HistoryhysterectomyHospitalization History bladder surgeryHospitalization History[facility]OVEHospitalization History [facility]-sapumsqhctoctmp5024Jabjjdblesegboh KvnbbnsXRI0204Qpictxlinlveboe HistoryTBH then Hospitalization HistoryTBH then Junar Other 09-06-2023 History general Narrative - Reported* Type Description Date Medical History Esophageal reflux Medical Historysleep apnea with cpapMedical HistoryLBPMedical Historyallergic rhinitisMedical Historyhypoglycemia in the morningMedical HistoryHypoglycaemia NOSMedical HistoryLUMBAR SPONDYLOSIS/RADICULOPATHYMedical HistoryHTNMedical HistoryARTHRITISMedical HistoryHLDMedical Historylactose intoleranceMedical HistoryCovid 03/2022 [place] the [place]Surgical Historybladder surgerySurgical Historypartial hysterectomySurgical Historyarthroscopic knee surgerySurgical Zljjyydrwdtosbm34/2010Surgical Snxefhpgfsl64/2009Surgical Historyback Surgery Surgical HistoryBilateral cataract surgerySurgical HistoryLaser Eye prygivv6662Uackimiu HistoryLumbar decompressive yrjrtgg3687Fizagpkq History ijmpbpbuzfkvnuc8201Knaxieov HistoryAblation- Epjf0133Jeceleio Historyback hzevmvqlq16/2021Hospitalization HistoryhysterectomyHospitalization History bladder surgeryHospitalization History[facility]OVEHospitalization History [facility]-chqaltlynedfzdb3217Jhyqpkaqyxwabtz TvankfjYXH9483Oofjicjrnhaklgm HistoryTBH then Hospitalization HistoryTBH then Junar Other 08-21-2023 History general Narrative - Reported* Type Description Date Medical History Esophageal reflux Medical Historysleep apnea with cpapMedical HistoryLBPMedical Historyallergic rhinitisMedical Historyhypoglycemia in the morningMedical HistoryHypoglycaemia NOSMedical HistoryLUMBAR SPONDYLOSIS/RADICULOPATHYMedical HistoryHTNMedical HistoryARTHRITISMedical HistoryHLDMedical Historylactose intoleranceMedical HistoryCovid 03/2022 [place]Surgical Historybladder surgerySurgical Historypartial hysterectomySurgical Historyarthroscopic knee surgerySurgical Nnwzmypvznebrol27/2009Surgical Uqminjrminy18/2009Surgical Historyback Surgery Surgical HistoryBilateral cataract surgerySurgical HistoryLaser Eye tjiwuja1239Bkowbnka HistoryLumbar decompressive brnmziz3542Prskovst History zdxlyorouzpcteb0332Xnsulnca HistoryAblation- Sqnu2778Nxjqaudt Historyback fstzaqkje32/2021Hospitalization HistoryhysterectomyHospitalization History bladder surgeryHospitalization History[facility]OVEHospitalization History [facility]-qvndzbwdfnkozte9441Jibgmccshasnaxr NaokogmFUS8432Xnmydxhkbdjhjkl HistoryTB[facility] then [place]02/2022Hospitalization HistoryTB[facility] then [place]09/2021 Jun[facility] Other 08-11-2023 Evaluation note* Encounter Date Diagnosis [...] avoid open toed shoes. Check feet daily. Junar Other 08-11-2023 Evaluation note* Encounter Date Diagnosis [...] avoid open toed shoes. Check feet daily. Junar Other 08-03-2023 History general Narrative - Reported* Type Description Date Medical History Esophageal reflux Medical Historysleep apnea with cpapMedical HistoryLBPMedical Historyallergic rhinitisMedical Historyhypoglycemia in the morningMedical HistoryHypoglycaemia NOSMedical HistoryLUMBAR SPONDYLOSIS/RADICULOPATHYMedical HistoryHTNMedical HistoryARTHRITISMedical HistoryHLDMedical Historylactose intoleranceMedical HistoryCovid 03/2022 [place]Surgical Historybladder surgerySurgical Historypartial hysterectomySurgical Historyarthroscopic knee surgerySurgical Nurhuskulvodndw14/2010Surgical Zqcgfglxwxw74/2010Surgical Historyback Surgery Surgical HistoryBilateral cataract surgerySurgical HistoryLaser Eye petlmbs2752Nudwcsmq HistoryLumbar decompressive gpevkld1452Pnhgwweb History cekuzhrpovwnpsk8312Sfexaghg HistoryAblation- Hxbs4185Vhpdgzum Historyback qdespnyay98/2021Hospitalization HistoryhysterectomyHospitalization History bladder surgeryHospitalization History[facility]OVEHospitalization History [facility]-sfgszyzmyozcljg3587Uaxbrxkvfqsridi XicukcwUUU5597Mggaigbvsaaeqwj HistoryTBH then WillHospitalization HistoryTBH then Will Junar Other 08-01-2023 History general Narrative - Reported* Type Description Date Medical History Esophageal reflux Medical Historysleep apnea with cpapMedical HistoryLBPMedical Historyallergic rhinitisMedical Historyhypoglycemia in the morningMedical HistoryHypoglycaemia NOSMedical HistoryLUMBAR SPONDYLOSIS/RADICULOPATHYMedical HistoryHTNMedical HistoryARTHRITISMedical HistoryHLDMedical Historylactose intoleranceMedical HistoryCovid 03/2022 [place]Surgical Historybladder surgerySurgical Historypartial hysterectomySurgical Historyarthroscopic knee surgerySurgical Wxcfgxzyuphzxmj51/2010Surgical Ngvsolmckoy31/2010Surgical Historyback Surgery Surgical HistoryBilateral cataract surgerySurgical HistoryLaser Eye bajlgxf5287Qrgqaque HistoryLumbar decompressive jvhdqci4758Ckjvnyxs History squtmxfalvazshx9116Werjaofr HistoryAblation- Owyy9389Vtaobnpj Historyback yevyvktac08/2021Hospitalization HistoryhysterectomyHospitalization History bladder surgeryHospitalization History[facility]OVEHospitalization History [facility]-bkzhuwwhqolbzrl1717Hjhevwcfpjvuqeg XswrpsxEDI3925Mclpfajvqoqnpav HistoryTBH then Hospitalization HistoryTBH then Junar Other 07-19-2023 Evaluation note* Encounter Date Diagnosis Assessment Notes Treatment Notes Treatment Clinical Notes Mar, Type 2 diabetes estuardo itus 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, unspecified whether nursing home insulin use (ICD-10 - E11.9) Junar Other 07-03-2023 Evaluation note* Encounter Date Diagnosis Assessment Notes Treatment Notes Treatment Clinical Notes Mar, Type 2 diabetes estuardo itus 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, unspecified whether 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 (ICD-10 - E11.9) Junar Other 07-03-2023 History general Narrative - Reported* Type Description Date Medical History Esophageal reflux Medical Historysleep apnea with cpapMedical HistoryLBPMedical Historyallergic rhinitisMedical Historyhypoglycemia in the morningMedical HistoryHypoglycaemia NOSMedical HistoryLUMBAR SPONDYLOSIS/RADICULOPATHYMedical HistoryHTNMedical HistoryARTHRITISMedical HistoryHLDMedical Historylactose intoleranceMedical HistoryCovid 03/2022 [facility] Historybladder surgerySurgical Historypartial hysterectomySurgical Historyarthroscopic knee surgerySurgical Qqtoydoktzoaigf41/2010Surgical Vwxyehpbmuj07/2009Surgical Historyback Surgery Surgical HistoryBilateral cataract surgerySurgical HistoryLaser Eye hnvzran0608Ixxdmzns HistoryLumbar decompressive lqrshqu7333Jqjxacko History bzndfngfxaevdiq7452Xhtkawes HistoryAblation- Luob4138Zyrxsyad Historyback rruylpdis37/2021Hospitalization HistoryhysterectomyHospitalization History bladder surgeryHospitalization History[facility]OVEHospitalization History [facility]-ybycgfglqshvkdh2219Bhkbondtdxifytq RszraauAOO6637Wxhfkacmqtngkah HistoryTBH then WillHospitalization HistoryTBH then Will Junar Other 06-23-2023 History general Narrative - Reported* Type Description Date Medical History Esophageal reflux Medical Historysleep apnea with cpapMedical HistoryLBPMedical Historyallergic rhinitisMedical Historyhypoglycemia in the morningMedical HistoryHypoglycaemia NOSMedical HistoryLUMBAR SPONDYLOSIS/RADICULOPATHYMedical HistoryHTNMedical HistoryARTHRITISMedical HistoryHLDMedical Historylactose intoleranceMedical HistoryCovid 03/2022 [place]Surgical Historybladder surgerySurgical Historypartial hysterectomySurgical Historyarthroscopic knee surgerySurgical Ajxzrnkspzegpuq17/2010Surgical Qvhyhyzkhcc35/2010Surgical Historyback Surgery -2012Surgical HistoryBilateral cataract surgerySurgical HistoryLaser Eye yliqxdw0797Jrjhufty HistoryLumbar decompressive xzpojeq2728Iyqlnlcr History yizyieagbnxzsoh2830Exazofht HistoryAblation- Ilpi2359Jhrednah Historyback /2021Hospitalization HistoryhysterectomyHospitalization History bladder surgeryHospitalization History[facility]OVEHospitalization History [facility]-estwnczjsnrkxho1295Riekxqvmtjbpdcv KckpageKVF5831Mvhgxsbuelokdxb HistoryTBH then Hospitalization HistoryTBH then Junar Other 06-20-2023 History general Narrative - Reported* Type Description Date Medical History Esophageal reflux Medical Historysleep apnea with cpapMedical HistoryLBPMedical Historyallergic rhinitisMedical Historyhypoglycemia in the morningMedical HistoryHypoglycaemia NOSMedical HistoryLUMBAR SPONDYLOSIS/RADICULOPATHYMedical HistoryHTNMedical HistoryARTHRITISMedical HistoryHLDMedical Historylactose intoleranceMedical HistoryCovid 03/2022 [place] the [place]Surgical Historybladder surgerySurgical Historypartial hysterectomySurgical Historyarthroscopic knee surgerySurgical Tdxggfnzpefnpog06/2010Surgical Limwcqrfbol38/2009Surgical Historyback Surgery -2012Surgical HistoryBilateral cataract surgerySurgical HistoryLaser Eye ytxfcwr2836Sopyfbfy HistoryLumbar decompressive hghozdy1649Gsnilkau History ppagkdfcyhfxprf9754Aklwctjj HistoryAblation- Aqju0327Imtanvdy Historyback sktyvbnno43/2021Hospitalization HistoryhysterectomyHospitalization History bladder surgeryHospitalization History[facility]OVEHospitalization History [facility]-chnkgoowsmqivey7223Sqmaqvspkjtkbeh YmhksjvWMA5022Tifwurpjngwmwjj HistoryTBH then Hospitalization HistoryTBH then Junar Other 06-17-2023 History general Narrative - Reported* Type Description Date Medical History Esophageal reflux Medical Historysleep apnea with cpapMedical HistoryLBPMedical Historyallergic rhinitisMedical Historyhypoglycemia in the morningMedical HistoryHypoglycaemia NOSMedical HistoryLUMBAR SPONDYLOSIS/RADICULOPATHYMedical HistoryHTNMedical HistoryARTHRITISMedical HistoryHLDMedical Historylactose intoleranceMedical HistoryCovid 03/2022 [facility] the CenterSurgical Historybladder surgerySurgical Historypartial hysterectomySurgical Historyarthroscopic knee surgerySurgical Dotnewoqhemfmsy02/2009Surgical Novtdtkxnfd37/2009Surgical Historyback Surgery Surgical HistoryBilateral cataract surgerySurgical HistoryLaser Eye vugeldc1862Xbhiqmtm HistoryLumbar decompressive gxjrnwf4850Tdjxwlxw History rcofcmpqcswnszr3186Pzlawsti HistoryAblation- Wden1756Vsnaojfq Historyback /2021Hospitalization HistoryhysterectomyHospitalization History bladder surgeryHospitalization History[facility]OVEHospitalization History [facility]-ebixrdetvamdldz4407Bjxkoqflekhpdgt NbrjorkKGC0595Hbhhdrgrlfvgtbl HistoryTBH then Hospitalization HistoryTBH then Junar Other 06-12-2023 Evaluation note* Encounter Date Diagnosis [...] without vomiting (ICD-10 - R11.0)cover with zofran. Junar Other 05-12-2023 History general Narrative - Reported* Type Description Date Medical History Esophageal reflux Medical Historysleep apnea with cpapMedical HistoryLBPMedical Historyallergic rhinitisMedical Historyhypoglycemia in the morningMedical HistoryHypoglycaemia NOSMedical HistoryLUMBAR SPONDYLOSIS/RADICULOPATHYMedical HistoryHTNMedical HistoryARTHRITISMedical HistoryHLDMedical Historylactose intoleranceMedical HistoryCovid 03/2022 [place]Surgical Historybladder surgerySurgical Historypartial hysterectomySurgical Historyarthroscopic knee surgerySurgical Vzrzreocyfpejmj76/2010Surgical Mxapcnciuwc83/2010Surgical Historyback Surgery Surgical HistoryBilateral cataract surgerySurgical HistoryLaser Eye rssyajb3276Kdazbkhu HistoryLumbar decompressive quvueeb0777Mvibudfp History yeuycasivpbzlqv5925Rqtyzuyi HistoryAblation- Phkz7588Kzcjssbb Historyback /2021Hospitalization HistoryhysterectomyHospitalization History bladder surgeryHospitalization History[facility]OVEHospitalization History [facility]-ofyuoiwwmyvcwsw7500Wetvotqkgqpbjvz MqatwteJGR4271Dxcbelfstfhmmbe HistoryTBH then WillHospitalization HistoryTBH then Will Junar Other 05-08-2023 Evaluation note* Encounter Date Diagnosis Assessment Notes Treatment Notes Treatment Clinical Notes January, Type 2 diabetes estuardo itus 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, unspecified whether 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 (ICD-10 - E11.9) January,Essential hypertension (ICD-10 - I10) January,ependent edema (ICD-10 - R60.9) Junar Other 05-05-2023 History general Narrative - Reported* Type Description Date Medical History Esophageal reflux Medical Historysleep apnea with cpapMedical HistoryLBPMedical Historyallergic rhinitisMedical Historyhypoglycemia in the morningMedical HistoryHypoglycaemia NOSMedical HistoryLUMBAR SPONDYLOSIS/RADICULOPATHYMedical HistoryHTNMedical HistoryARTHRITISMedical HistoryHLDMedical Historylactose intoleranceMedical HistoryCovid 03/2022 [place] the [place]Surgical Historybladder surgerySurgical Historypartial hysterectomySurgical Historyarthroscopic knee surgerySurgical Klsjmxjcdvereso27/2010Surgical Staespbxquw21/2010Surgical Historyback Surgery Surgical HistoryBilateral cataract surgerySurgical HistoryLaser Eye fvnhbax6663Ljlrpsoy HistoryLumbar decompressive qxiorwp9227Lvzyjsjq History kgzkrdjdahgxzgs2235Dqoqoxey HistoryAblation- Gbcv4734Falronox Historyback nmjnyrhtr63/2021Hospitalization HistoryhysterectomyHospitalization History bladder surgeryHospitalization History[facility]OVEHospitalization History [facility]-stdvqrgqdgzepuw3642Jihcowtrjbmleyd RfzaunyTBJ2328Jjqiozxjwvsjqjd HistoryTBH then Hospitalization HistoryTBH then Junar Other 05-04-2023 Evaluation note* Encounter Date Diagnosis [...] January,Suspected urinary tract infection (ICD-10 - R39.89) Junar Other 04-26-2023 History general Narrative - Reported* Type Description Date Medical History Esophageal reflux Medical Historysleep apnea with cpapMedical HistoryLBPMedical Historyallergic rhinitisMedical Historyhypoglycemia in the morningMedical HistoryHypoglycaemia NOSMedical HistoryLUMBAR SPONDYLOSIS/RADICULOPATHYMedical HistoryHTNMedical HistoryARTHRITISMedical HistoryHLDMedical Historylactose intoleranceMedical HistoryCovid 03/2022 [facility] the [facility]Surgical Historybladder surgerySurgical Historypartial hysterectomySurgical Historyarthroscopic knee surgerySurgical Ycjvqpvbfriwedh19/2010Surgical Jxudldnprtn64/2010Surgical Historyback Surgery -2012Surgical HistoryBilateral cataract surgerySurgical HistoryLaser Eye qplchvb5602Yesbhfzq HistoryLumbar decompressive ofliear6099Fwqlydse History smnexqspfvscaju3254Gxeuhzbm HistoryAblation- Qdfe0554Fuokvwcf Historyback ushbtrqvy53/2021Hospitalization HistoryhysterectomyHospitalization History bladder surgeryHospitalization History[facility]OVEHospitalization History [facility]-ljjpsbwkqpupidm9988Jzapueapafmigdu WmeyqqaOLB2992Jrkpuefaoudyujz HistoryTBH then WillHospitalization HistoryTBH then Junar Other 04-25-2023 History general Narrative - Reported* Type Description Date Medical History Esophageal reflux Medical Historysleep apnea with cpapMedical HistoryLBPMedical Historyallergic rhinitisMedical Historyhypoglycemia in the morningMedical HistoryHypoglycaemia NOSMedical HistoryLUMBAR SPONDYLOSIS/RADICULOPATHYMedical HistoryHTNMedical HistoryARTHRITISMedical HistoryHLDMedical Historylactose intoleranceMedical HistoryCovid 03/2022 [place] the [facility]Surgical Historybladder surgerySurgical Historypartial hysterectomySurgical Historyarthroscopic knee surgerySurgical Ylxqwpgfmbavspu94/2010Surgical Tskrdwxaufz12/2010Surgical Historyback Surgery Surgical HistoryBilateral cataract surgerySurgical HistoryLaser Eye ljyafsa2789Gqvktigx HistoryLumbar decompressive pzhluvn8964Knnvzuef History fcqxpvxmpgaxpgx8410Ajecyige HistoryAblation- Cxfz7219Udplnzxh Historyback clbnfgilw55/2021Hospitalization HistoryhysterectomyHospitalization History bladder surgeryHospitalization History[facility]OVEHospitalization History [facility]-qczgyjyyliolooa1043Athhyrfhfwekcen EmkmikdSCV8175Gxvjbjexfuqchjf HistoryTBH then Hospitalization HistoryTBH then Junar Other 04-20-2023 Evaluation note* Encounter Date Diagnosis [...] a day. [employer] was called into [facility]. Dec,ERD (gastroesophageal reflux disease) (ICD-10 - K21.9) Dec,Type 2 diabetes mellitus 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, unspecified whether 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 (ICD-10 - E11.9) Type 2 [...] reviewed. Taking all meds as directed reinforced. Junar Other [id number] History general Narrative - Reported* Type Description Date Medical History Esophageal reflux Medical Historysleep apnea with cpapMedical HistoryLBPMedical Historyallergic rhinitisMedical Historyhypoglycemia in the morningMedical HistoryHypoglycaemia NOSMedical HistoryLUMBAR SPONDYLOSIS/RADICULOPATHYMedical HistoryHTNMedical HistoryARTHRITISMedical HistoryHLDMedical Historylactose intoleranceMedical HistoryCovid 03/2022 while in the CenterSurgical Historybladder surgerySurgical Historypartial hysterectomySurgical Historyarthroscopic knee surgerySurgical Vsbaoaxbxfdqbvr01/2010Surgical Csvsehuecba13/2010Surgical Historyback Surgery -2012Surgical HistoryBilateral cataract surgerySurgical HistoryLaser Eye mbrtqch9701Vwaayqqm HistoryLumbar decompressive mtvuuac6413Sghbrmsn History tpvzxhkbfwivyhu9284Orkkkbge HistoryAblation- Mtzu2936Cigebtxd Historyback cyfslghbn60/2021Hospitalization HistoryhysterectomyHospitalization History bladder surgeryHospitalization History[facility]OVEHospitalization History [facility]-fwbujxmdqsvybyp2274Blqaojdavsmsngv FnagyisSLS4896Lqdnrrazyvweyvf HistoryTBH then WillHospitalization HistoryTBH then Junar Other 04-14-2023 History general Narrative - Reported* Type Description Date Medical History Esophageal reflux Medical Historysleep apnea with cpapMedical HistoryLBPMedical Historyallergic rhinitisMedical Historyhypoglycemia in the morningMedical HistoryHypoglycaemia NOSMedical HistoryLUMBAR SPONDYLOSIS/RADICULOPATHYMedical HistoryHTNMedical HistoryARTHRITISMedical HistoryHLDMedical Historylactose intoleranceMedical HistoryCovid 03/2022 while in the CenterSurgical Historybladder surgerySurgical Historypartial hysterectomySurgical Historyarthroscopic knee surgerySurgical Emmddpbpuitjqnc70/2010Surgical Eemwxzsdosf10/2010Surgical Historyback Surgery Surgical HistoryBilateral cataract surgerySurgical HistoryLaser Eye ihwuved9621Ufckuwsf HistoryLumbar decompressive slnqcdi2472Jarimvum History vpumwrdmcgzexdk7957Dexealxi HistoryAblation- Apok8016Mnlaxbey Historyback zkajsoxfs55/2021Hospitalization HistoryhysterectomyHospitalization History bladder surgeryHospitalization History[facility]OVEHospitalization History [facility]-uteewkvjdizyuap9225Suhubqdqxjeywba VxcbrtoDGN2105Yureyjiuoavjegz HistoryTBH then Hospitalization HistoryTBH then Junar Other 04-06-2023 Evaluation note* Encounter Date Diagnosis [...] 2 diabetes mellitus 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, unspecified whether 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 (ICD-10 - E11.9) Type 2 [...] by pulmonology. Recent pulmonology visit showed stability. Jun[facility] Other 04-05-2023 History general Narrative - Reported* Type Description Date Medical History Esophageal reflux Medical Historysleep apnea with cpapMedical HistoryLBPMedical Historyallergic rhinitisMedical Historyhypoglycemia in the morningMedical HistoryHypoglycaemia NOSMedical HistoryLUMBAR SPONDYLOSIS/RADICULOPATHYMedical HistoryHTNMedical HistoryARTHRITISMedical HistoryHLDMedical Historylactose intoleranceMedical HistoryCovid 03/2022 [place] Historybladder surgerySurgical Historypartial hysterectomySurgical Historyarthroscopic knee surgerySurgical Rdxkwpqklvvzzqm11/2010Surgical Uvrwpeqawgs92/2010Surgical Historyback Surgery Surgical HistoryBilateral cataract surgerySurgical HistoryLaser Eye yyloqtt2026Wtqmphnt HistoryLumbar decompressive exnuvhe7159Akcohldl History jfgjdqdabhlzupj2078Myaotdsr HistoryAblation- Vvlh8579Wdxhafsu Historyback wpybrzfke61/2021Hospitalization HistoryhysterectomyHospitalization History bladder surgeryHospitalization HistorySEE ABOVEHospitalization History [facility]-[id number] [id number] HistoryTBH then Hospitalization HistoryTBH then Jun[facility] Other 04-04-2023 Evaluation note* Encounter Date Diagnosis Assessment Notes Treatment Notes Treatment Clinical Notes Dec, Cough (ICD-10 - R05.9) Dec,Interstitial lung disease (ICD-10 - J84.9)Call office if increased cough occurs or shortness of breath. Dec,neumonitis (ICD-10 - J18.9) Dec,ronchiectasis 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 (ICD-10 - J47.9) Dec,OtherNotifiy family doctor about increased LE edema, unable to wear shoes. [facility] Other 03-31-2023 History general Narrative - Reported* Type Description Date Medical History Esophageal reflux Medical Historysleep apnea with cpapMedical HistoryLBPMedical Historyallergic rhinitisMedical Historyhypoglycemia in the morningMedical HistoryHypoglycaemia NOSMedical HistoryLUMBAR SPONDYLOSIS/RADICULOPATHYMedical HistoryHTNMedical HistoryARTHRITISMedical HistoryHLDMedical Historylactose intoleranceMedical HistoryCovid 03/2022 while in the Surgical Historybladder surgerySurgical Historypartial hysterectomySurgical Historyarthroscopic knee surgerySurgical Syxahjzktmykvwf51/2010Surgical Mhjwrgmosmq44/2010Surgical Historyback Surgery Surgical HistoryBilateral cataract surgerySurgical HistoryLaser Eye zbulfhy9202Fhcesjzp HistoryLumbar decompressive nexbeea7457Vlevdxzl History yogdzifwkgwgbtf1438Qojjhhhf HistoryAblation- Nlls0820Vmlawfrd Historyback xrrcqmiix66/2021Hospitalization HistoryhysterectomyHospitalization History bladder surgeryHospitalization HistorySEE ABOVEHospitalization History [facility]-ledmqfzjzacjdvm5894Zpzeewlezgksylg ViepcitPZN5448Dswmqyvxakawcpm HistoryTBH then WillHospitalization HistoryTBH then [facility] Other 03-24-2023 History general Narrative - Reported* Type Description Date Medical History Esophageal reflux Medical Historysleep apnea with cpapMedical HistoryLBPMedical Historyallergic rhinitisMedical Historyhypoglycemia in the morningMedical HistoryHypoglycaemia NOSMedical HistoryLUMBAR SPONDYLOSIS/RADICULOPATHYMedical HistoryHTNMedical HistoryARTHRITISMedical HistoryHLDMedical Historylactose intoleranceMedical HistoryCovid 03/2022 while in the CenterSurgical Historybladder surgerySurgical Historypartial hysterectomySurgical Historyarthroscopic knee surgerySurgical Tlfnqhnmyxafpxz34/2010Surgical Fzmnrjjutgh22/2010Surgical Historyback Surgery Surgical HistoryBilateral cataract surgerySurgical HistoryLaser Eye nsmcrtm7951Oahletxc HistoryLumbar decompressive ilpille8820Dftxzcsk History rhmmwjrvoybqpip0801[place]oba HistoryAblation- Xjbw7634Toukqzrj Historyback tiuoiwriw31/2021Hospitalization HistoryhysterectomyHospitalization History bladder surgeryHospitalization HistorySEE ABOVEHospitalization History [facility]-nfivjgzectsewlh6302Wotfrpcbcfusmcn YqadqyjNQB3421Ciczrqjbonfueal HistoryTBH then Hospitalization HistoryTBH then [facility] Other 03-23-2023 Evaluation note* Encounter Date Diagnosis [...] 2 diabetes mellitus 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, unspecified whether nursing home insulin use (ICD-10 - E11.9) Type 2 [...] will consider. Nov,Nausea (ICD-10 - R11.0)Rx refilled [facility] Other 03-20-2023 History general Narrative - Reported* Type Description Date Medical History Esophageal reflux Medical Historysleep apnea with cpapMedical HistoryLBPMedical Historyallergic rhinitisMedical Historyhypoglycemia in the morningMedical HistoryHypoglycaemia NOSMedical HistoryLUMBAR SPONDYLOSIS/RADICULOPATHYMedical HistoryHTNMedical HistoryARTHRITISMedical HistoryHLDMedical Historylactose intoleranceMedical HistoryCovid 03/2022 [place] Historybladder surgerySurgical Historypartial hysterectomySurgical Historyarthroscopic knee surgerySurgical Zcdgdcwzvqffwab74/2010Surgical Mfbvrzyamjt02/2009Surgical Historyback Surgery Surgical HistoryBilateral cataract surgerySurgical HistoryLaser Eye ihijrzx8953Slnftzyp HistoryLumbar decompressive eemthod2418Lxtpedho History affzwsvuwqwjpve9190Xpzdxucj HistoryAblation- Wkhd6886Atdrdntj Historyback eevszyveh43/2021Hospitalization HistoryhysterectomyHospitalization History bladder surgeryHospitalization HistorySEE ABOVEHospitalization History [facility]-ahnxhidbnhfovls3733Nxapchnerlexsnb JyynsmkZJA5561Kujbyaelehsbfzk HistoryTBH then Jun[facility] Other 03-06-2023 History general Narrative - Reported* Type Description Date Medical History Esophageal reflux Medical Historysleep apnea with cpapMedical HistoryLBPMedical Historyallergic rhinitisMedical Historyhypoglycemia in the morningMedical HistoryHypoglycaemia NOSMedical HistoryLUMBAR SPONDYLOSIS/RADICULOPATHYMedical HistoryHTNMedical HistoryARTHRITISMedical HistoryHLDMedical Historylactose intoleranceMedical HistoryCovid 03/2022 while in the CenterSurgical Historybladder surgerySurgical Historypartial hysterectomySurgical Historyarthroscopic knee surgerySurgical Jkzeqfuxcoxfine67/2010Surgical Wxfsryctozq89/2010Surgical Historyback Surgery Surgical HistoryBilateral cataract surgerySurgical HistoryLaser Eye agefevu8476Fsllusxx HistoryLumbar decompressive kcjghyn1619Ishikvcl History ixrhpqreslluhqt8387Qntgnpkb HistoryAblation- Jpls0243Dnsmivan Historyback yujujalkz45/2021Hospitalization HistoryhysterectomyHospitalization History bladder surgeryHospitalization HistorySEE ABOVEHospitalization History [facility]-iwkhibaiztknmgv9038Andohrtbjnblbng JrajvwsSLW3038Yomjkodzzpvdqvo HistoryTB then [facility] Other 01-16-2023 Evaluation note* Encounter Date Diagnosis [...] will continue to monitor. Continue above medications. [facility] Other 12-22-2022 Evaluation note* Encounter Date Diagnosis [...] 2 diabetes mellitus 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, unspecified whether 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 (ICD-10 - E11.9)Stable. Last A1c [...] They are following this with appropriate scans. [facility] Other 12-15-2022 Evaluation note* Encounter Date Diagnosis Assessment Notes Treatment Notes Treatment Clinical Notes Aug, Cough (ICD-10 - R05.9) Aug,Interstitial lung disease (ICD-10 - J84.9) Aug,neumonitis (ICD-10 - J18.9) Aug,ronchiectasis 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 (ICD-10 - J47.9) [facility] Other 11-15-2022 Evaluation note* Encounter Date Diagnosis Assessment Notes Treatment Notes Treatment Clinical Notes Jul, GERD (gastroesophageal reflux di sease) (ICD-10 - K21.9) Jul,LS (restless legs syndrome) (ICD-10 - G25.81) [facility] Other 11-13-2022 History general Narrative - Reported* Type Description Date Medical History Esophageal reflux Medical Historysleep apnea with cpapMedical HistoryLBPMedical Historyallergic rhinitisMedical Historyhypoglycemia in the morningMedical HistoryHypoglycaemia NOSMedical HistoryLUMBAR SPONDYLOSIS/RADICULOPATHYMedical HistoryHTNMedical HistoryARTHRITISMedical HistoryHLDMedical Historylactose intoleranceMedical HistoryCovid 03/2022 [place] the [place] Historybladder surgerySurgical Historypartial hysterectomySurgical Historyarthroscopic knee surgerySurgical Nxmsmlevnrwmnle75/2010Surgical Qnitnorkcak43/2010Surgical Historyback Surgery Surgical HistoryBilateral cataract surgerySurgical HistoryLaser Eye yieibwu9548Mdzyjbnn HistoryLumbar decompressive qrcxkrx4046Mwnapkxk History nsgfcgjwqgxjzfd4452Asbuzydu HistoryAblation- Eqcc2253Raessski Historyback wnxxkdpry25/2021Hospitalization HistoryhysterectomyHospitalization History bladder surgeryHospitalization HistorySEE ABOVEHospitalization History [facility]-cblszjmhiogbzrj5508Arayfabgtpkudos LtlaaprJBU1582Iunbukmvvqwamjr HistoryTB then [facility] Other 11-04-2022 History general Narrative - Reported* Type Description Date Medical History Esophageal reflux Medical Historysleep apnea with cpapMedical HistoryLBPMedical Historyallergic rhinitisMedical Historyhypoglycemia in the morningMedical HistoryHypoglycaemia NOSMedical HistoryLUMBAR SPONDYLOSIS/RADICULOPATHYMedical HistoryHTNMedical HistoryARTHRITISMedical HistoryHLDMedical Historylactose intoleranceMedical HistoryCovid 03/2022 [place] Historybladder surgerySurgical Historypartial hysterectomySurgical Historyarthroscopic knee surgerySurgical Mxotfxywpxwuuki68/2010Surgical Uiokldtbfky32/2010Surgical Historyback Surgery Surgical HistoryBilateral cataract surgerySurgical HistoryLaser Eye egkfrzi5210Isvvvimi HistoryLumbar decompressive cwvpuui4344Exvguytk History nnpnrcduufrspfl4320Qnnraflv HistoryAblation- Spar2610Xprsgigb Historyback inmdoworq53/2021Hospitalization HistoryhysterectomyHospitalization History bladder surgeryHospitalization HistorySEE ABOVEHospitalization History [facility]-dpehouzfpyagxaz9600Bmvancgqatqhuqb BpvcasyABY4959Noaeciwlkbkywvs HistoryTBH then [facility] Other 11-03-2022 Evaluation note* Encounter Date Diagnosis [...] Jul,Need for influenza vaccination (ICD-10 - Z23) [facility] Other 11-02-2022 Evaluation note* Encounter Date Diagnosis Assessment Notes Treatment Notes Treatment Clinical Notes Jul, Cough (ICD-10 - R05.9) Jul,Interstitial lung disease (ICD-10 - J84.9) [facility] Other 11-02-2022 History general Narrative - Reported* Type Description Date Medical History Esophageal reflux Medical Historysleep apnea with cpapMedical HistoryLBPMedical Historyallergic rhinitisMedical Historyhypoglycemia in the morningMedical HistoryHypoglycaemia NOSMedical HistoryLUMBAR SPONDYLOSIS/RADICULOPATHYMedical HistoryHTNMedical HistoryARTHRITISMedical HistoryHLDMedical Historylactose intoleranceMedical HistoryCovid 03/2022 [place] Historybladder surgerySurgical Historypartial hysterectomySurgical Historyarthroscopic knee surgerySurgical Kyzavvdkgsfquae76/2010Surgical Fskmlmtjnnb43/2010Surgical Historyback Surgery Surgical HistoryBilateral cataract surgerySurgical HistoryLaser Eye qsxdfnm9846Yimtnqps HistoryLumbar decompressive cqckyzl8871Giitoyqg History fclzzmgitywrvik1274Narbytoe HistoryAblation- Erto4836Varfhvjh Historyback uzikuewez38/2021Hospitalization HistoryhysterectomyHospitalization History bladder surgeryHospitalization HistorySEE ABOVEHospitalization History [facility]-lfxjxqnqismydax7224Yckqvdgrlxoawdp BsiuidkBOT2515Ticqpaunklizwhx HistoryTBH then Jun[facility] Other 10-13-2022 Evaluation note* Encounter Date Diagnosis Assessment Notes Treatment Notes Treatment Clinical Notes Jun, Cough (ICD-10 - R05.9) [facility] Other 10-05-2022 History general Narrative - Reported* Type Description Date Medical History Esophageal reflux Medical Historysleep apnea with cpapMedical HistoryLBPMedical Historyallergic rhinitisMedical Historyhypoglycemia in the morningMedical HistoryHypoglycaemia NOSMedical HistoryLUMBAR SPONDYLOSIS/RADICULOPATHYMedical HistoryHTNMedical HistoryARTHRITISMedical HistoryHLDMedical Historylactose intoleranceSurgical Historybladder surgerySurgical Historypartial hysterectomySurgical History arthroscopic knee surgerySurgical Cyeqxhsjdzzmpkd57/2010Surgical Historydexa 08/2010Surgical Historyback Uimvgnd70-2028Msdrouff HistoryBilateral cataract surgerySurgical HistoryLaser Eye dedfztp5492Xipyneby HistoryLumbar decompressive tawrcsh5729Urlfclvx Tptvzxowmvcmanajttzdmw5558Nywaxmae HistoryAblation- 2018Surgical Historyback Hospitalization Historyhysterectomy Hospitalization Historybladder surgeryHospitalization HistorySEE ABOVE Hospitalization HistoryFR-amhwcvphsgtliix7073Gpodnmvsmdpidkg CymshqtZQG4698 [facility] Other 09-26-2022 Evaluation note* Encounter Date Diagnosis Assessment Notes Treatment Notes Treatment Clinical Notes May, Enlarged thyroid (ICD-10 - E04.9 ) [facility] Other 09-22-2022 Evaluation note* Encounter Date Diagnosis [...] 2 diabetes mellitus 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, unspecified whether 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 (ICD-10 - E11.9) Type 2 [...] I51.7) May,Interstitial lung disease (ICD-10 - J84.9) [facility] Other 09-15-2022 Evaluation note* Encounter Date Diagnosis Assessment Notes Treatment Notes Treatment Clinical Notes May, Cough (ICD-10 - R05.9) [facility] Other 09-08-2022 Evaluation note* Encounter Date Diagnosis Assessment Notes Treatment Notes Treatment Clinical Notes May, SOB (shortness of breath) (ICD-1 0 - R06.02) [facility] Other 08-22-2022 Evaluation note* Encounter Date Diagnosis Assessment Notes Treatment Notes Treatment Clinical Notes Apr, Essential hypertension (ICD-10 - I10) [facility] Other 04-25-2022 Evaluation note* Encounter Date Diagnosis Assessment Notes Treatment Notes Treatment Clinical Notes Dec, HTN (hypertension) (ICD-10 - I10 ) Patients blood pressure is well controlled at this time. Denies cardiac symptoms at todays visit. We will continue to monitor. Continue above medications. Dec,Hospital discharge follow-up (ICD-10 - Z09)All data from her brief hospitalization in [place] were reviewed.Final diagnosis was dehydration with syncope. [...] prescribed have SE's. No signs of Parkinsons. [facility] Other 04-04-2022 Evaluation note* Encounter Date Diagnosis Assessment Notes Treatment Notes Treatment Clinical Notes Dec, GERD (gastroesophageal reflux di sease) (ICD-10 - K21.9) [facility] Other 2022 Evaluation note* Encounter Date Diagnosis [...] to eat earlier before going to bed. [facility] Other 01-31-2022 Evaluation note* Encounter Date Diagnosis Assessment Notes Treatment Notes Treatment Clinical Notes Sep, Type 2 diabetes estuardo itus 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, unspecified whether nursing home insulin use (ICD-10 - E11.9) [facility] Other 12-13-2021 Evaluation note* Encounter Date Diagnosis [...] 2 diabetes mellitus 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, unspecified whether nursing home insulin use (ICD-10 - E11.9) Type 2 [...] watching their diet and increase exercise regimen. [facility] Other 11-18-2021 Evaluation note* Encounter Date Diagnosis [...] verbalized understanding and agreement with treatment plan. [facility] Other 10-22-2021 Evaluation note* Encounter Date Diagnosis [...] Patient care instructions given in writting by [facility] Home document. [facility] Other 09-09-2021 Evaluation note* Encounter Date Diagnosis Assessment Notes Treatment Notes Treatment Clinical Notes May, Type 2 diabetes estuardo itus 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, unspecified whether nursing home insulin use (ICD-10 - E11.9) Type 2 [...] - R11.0) May,uspected UTI (ICD-10 - R39.89) [facility] Other Evaluation noteNo InformationNortKindred Hospital [facility] my[facility] Other Evaluation noteNort [employer] Other Evaluation noteNo assessment information available [facility] Work Phone: Evaluation note* Diagnosis Onset Date Resolution Status Balance disorder acuteDiabetes mellitus with hyperglycemia, without long-term current use of insulinacuteNauseaacuteRLS (restless legs syndrome)acuteSystolic ejection murmur acuteLumbar degenerative disc diseaseacute [facility] Work Phone: Evaluation note* Diagnosis Onset Date Resolution Status Lumbar degenerative disc disease acuteBronchiectasisacuteChronic coughacuteInterstitial lung diseaseacute PneumonitisacuteUpper airway cough syndromeacuteDiabetes mellitus with hyperglycemia, without long-term current use of insulinacuteRLS (restless legs syndrome)acute [facility] Work Phone: Evaluation note* Diagnosis Onychomycosis- Primary Dermatophytosis of nail Pain in both feet 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, without long-term current use of insulin ([facility]) Lymphedema Other noninfectious lymphedema Venous insufficiency Unspecified venous (peripheral) insufficiency documented in this encounter [facility]* Diagnosis Onychomycosis- Primary Dermatophytosis of nail Pain in both feet 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, without long-term current use of insulin ([facility]) Lymphedema Other noninfectious lymphedema documented in this encounter [facility]* Diagnosis Onset Date Resolution Status Admit Date Bronchiectasis acuteMarch 2024 1:03pmCHF (congestive heart failure)acuteMarch 2024 1:03pmHTN (hypertension)acuteMarch 2024 1:03pmInterstitial lung disease acuteMarch 2024 1:03pmMedicare annual wellness visit, subsequentacuteMarch 2024 1:03pmMorbid obesityacuteMar 2024 1:03pm [facility] Work Phone: Evaluation note* Diagnosis Onychomycosis- Primary Dermatophytosis of nail Pain in both feet 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, without long-term current use of insulin Lymphedema Other noninfectious lymphedema documented in this encounter [facility] HealthcareEvaluation note* Diagnosis Seborrheic keratosis- Primary Neoplasm of unspecified behavior of bone, soft tissue, and skin Seborrheic keratosis, inflamed documented in this encounter [facility] HealthcareEvaluation note* Diagnosis Onychomycosis- Primary Dermatophytosis of nail Pain in both feet 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, without long-term current use of insulin ([facility]) Lymphedema Other noninfectious lymphedema Hammer toes of both feet documented in this encounter [facility] HealthcareEvaluation note* Diagnosis Diabetic polyneuropathy associated with type 2 diabetes mellitus (HCC)- Primary 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, without long-term current use of insulin ([facility]) Lymphedema Other noninfectious lymphedema Hammer toes of both feet Equinus contracture of left ankle Equinus contracture of right ankle documented in this encounter [facility] HealthcareEvaluation note* Diagnosis Hammer toes of both feet- Primary Equinus contracture of left ankle Equinus contracture of right ankle Lymphedema Other noninfectious lymphedema Diabetic polyneuropathy associated with type 2 diabetes mellitus (HCC) documented in this encounter [facility] HealthcareEvaluation note* Diagnosis Onset Date Resolution Status Admit Date HTN (hypertension) acuteSeptember 2024 2:11pm [facility] Work Phone: History general Narrative - Reported* Type Description Date Medical History Esophageal reflux Medical Historysleep apnea with cpapMedical HistoryLBPMedical Historyallergic rhinitisMedical Historyhypoglycemia in the morningMedical HistoryHypoglycaemia NOSMedical HistoryLUMBAR SPONDYLOSIS/RADICULOPATHYMedical HistoryHTNMedical HistoryARTHRITISMedical HistoryHLDMedical Historylactose intoleranceSurgical Historybladder surgerySurgical Historypartial hysterectomySurgical History arthroscopic knee surgerySurgical Vwvjsgwcocmtcgg11/2010Surgical Historydexa 08/2010Surgical Historyback Yaivizm24-7395Rvyezmxh HistoryBilateral cataract surgerySurgical HistoryLaser Eye fhywnwy4786Nlqvrwmi HistoryLumbar decompressive ziykpkb6584Ltlddkma Figvlqvtpxdtrygnozjxyn9625Tprvlnbt HistoryAblation- 2017Surgical Historyback vgjlvihbs30/2021Hospitalization Historyhysterectomy Hospitalization Historybladder surgeryHospitalization History[facility]OVE Hospitalization HistoryFR-rysfyazcrsbpycn5336 [facility] Other History general Narrative - ReportedNort [employer]s Other History general Narrative - Reported* Type Description Date Medical History Esophageal reflux Medical Historysleep apnea with cpapMedical HistoryLBPMedical Historyallergic rhinitisMedical Historyhypoglycemia in the morningMedical HistoryHypoglycaemia NOSMedical HistoryLUMBAR SPONDYLOSIS/RADICULOPATHYMedical HistoryHTNMedical HistoryARTHRITISMedical HistoryHLDMedical Historylactose intoleranceSurgical Historybladder surgerySurgical Historypartial hysterectomySurgical History arthroscopic knee surgerySurgical Msmslxtugpmiqzc71/2010Surgical Historydexa 08/2010Surgical Historyback Fedxjnx64-1744Dygikhfk HistoryBilateral cataract surgerySurgical HistoryLaser Eye yslwpuq1231Bccmvtsk HistoryLumbar decompressive joeabba8419Sbbzsfvq Wvzrtcjuzcwcpvavxbtfye1490Mfxmhsao HistoryAblation- 2017Surgical Historyback ldlwrpnyk94/2021Hospitalization Historyhysterectomy Hospitalization Historybladder surgeryHospitalization History[facility]OVE Hospitalization HistoryFR-yotfcwpvdkqaygk0380Sehlurhrxcqualb WnvkbygMZF2140 [facility] Other History general Narrative - Reported* Type Description Date Medical History Esophageal reflux Medical Historysleep apnea with cpapMedical HistoryLBPMedical Historyallergic rhinitisMedical Historyhypoglycemia in the morningMedical HistoryHypoglycaemia NOSMedical HistoryLUMBAR SPONDYLOSIS/RADICULOPATHYMedical HistoryHTNMedical HistoryARTHRITISMedical HistoryHLDMedical Historylactose intoleranceMedical HistoryCovid 03/2022 [place] Historybladder surgerySurgical Historypartial hysterectomySurgical Historyarthroscopic knee surgerySurgical Dvfstkymglljrpa64/2010Surgical Wpdnyiwkbii20/2010Surgical Historyback Surgery Surgical HistoryBilateral cataract surgerySurgical HistoryLaser Eye uarhshj8822Pwzjfmwv HistoryLumbar decompressive ducsfar2891Bfgtysgp History xlxiugwdbufmxzo6480Acvkcvob HistoryAblation- Duzr8801Fmftbdxb Historyback savlccdum88/2021Hospitalization HistoryhysterectomyHospitalization History bladder surgeryHospitalization HistorySEE ABOVEHospitalization History [facility]-jzyfvijdxbavvjy8395Upxuivduqsmhguy NhzzhtlTQN2001Hybnyfdciuwhzfi HistoryTBH then [facility] Other History general Narrative - Reported* Type Description Date Medical History Esophageal reflux Medical Historysleep apnea with cpapMedical HistoryLBPMedical Historyallergic rhinitisMedical Historyhypoglycemia in the morningMedical HistoryHypoglycaemia NOSMedical HistoryLUMBAR SPONDYLOSIS/RADICULOPATHYMedical HistoryHTNMedical HistoryARTHRITISMedical HistoryHLDMedical Historylactose intoleranceMedical HistoryCovid 03/2022 [place] Historybladder surgerySurgical Historypartial hysterectomySurgical Historyarthroscopic knee surgerySurgical Nsxdktzdzlwmvpu52/2010Surgical Xxyswfvittb49/2009Surgical Historyback Surgery -2012Surgical HistoryBilateral cataract surgerySurgical HistoryLaser Eye cystvby6485Ynikydnx HistoryLumbar decompressive jydddev9873Vubdcqxr History aoqlasuiufbuots3183Ycfavedk HistoryAblation- Phge6510Pbdgmnjz Historyback giwtxnmii77/2021Hospitalization HistoryhysterectomyHospitalization History bladder surgeryHospitalization HistorySEE ABOVEHospitalization History [facility]-rguithcrgqvevao0660Yijvryaeguolrtm HlglwdlDQV2926Fpgxaphxczwzvpq HistoryTBH then WillHospitalization HistoryTBH then Will [facility] Other History general Narrative - ReportedNolee's summit hospital [employer] Other History general Narrative - ReportedNoOpenROV Other History general Narrative - Reported* Type Description Date Medical History Esophageal reflux Medical Historysleep apnea with cpapMedical HistoryLBPMedical Historyallergic rhinitisMedical Historyhypoglycemia in the morningMedical HistoryHypoglycaemia NOSMedical HistoryLUMBAR SPONDYLOSIS/RADICULOPATHYMedical HistoryHTNMedical HistoryARTHRITISMedical HistoryHLDMedical Historylactose intoleranceMedical HistoryCovid 03/2022 [place] the [place]Medical Historyinterstitial lung disease Medical HistorybronchiectesisSurgical Historybladder surgerySurgical History partial hysterectomySurgical Historyarthroscopic knee surgerySurgical History wupqfycq41/2010Surgical Upfwovekffa97/2010Surgical Historyback Xzqvpdv41-6929 Surgical HistoryBilateral cataract surgerySurgical HistoryLaser Eye ycgaxmu5901 Surgical HistoryLumbar decompressive dcjtxkk6843Lvxzfwym Historycholecystectomy 2018Surgical HistoryAblation- Khsx7261Fuawjwyz Historyback zuowjckkw32/2021 Hospitalization HistoryhysterectomyHospitalization Historybladder surgery Hospitalization History[facility]Hospital[facility] [place]-mxkrtdjrkhyedxd5635 Hospitalization HuaplmsNNA6612Oeitmogtlsnlduz HistoryTB[facility] then [place] Hospitalization HistoryTB[facility] then [place]09/2021 [facility] Discharge instructionsAmbulatory Orders* Referral to Pain Management Time Frame: 01/01/24, Location: None Selected [facility] Work Phone: Reason for referral (narrative)No reason for referral information availableU[facility] Work Phone: Reason for visit NarrativeClinical referral/lock note [facility] Other Chief Complaint and Reason for Visit [...] cough Diagnosis 1 Cough (R05.9) Referral Organization [facility] Referring Provider First Name Brendon Referring Provider Last Name Castelan Referring Provider Specialty Internal Me dicine Referred Organization [facility] Referred Address [address] [place] [address],[facility] [address],[place], [place],[address] Referred Provider Specialty Pulmonary Di seases Referral [...] at this time. 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, without long-term current use of insulin (HCC) Lymphedema Hammer toes of both feet Procedures PA OFFICE/OUTPATIENT NEW HIGH MDM 60 MINUTES Jimmy Miranda, DPAnnette [address] [place] [address] Phone: tel: fax: Yolanda Grant, DPM [address] [place] [address] Phone: tel: fax: Referral IDStatusReasonStart DateExpiration DateVisits RequestedVisits [id number] Specialty Services Required /[id number] ShoesEstablished patient presents today to be measured [...] DateEnd Date Fatoumata Chase MD [address] [facility] [place] [phone] PCP - GeneralFamily Nbgbanzl96/4/23Team MemberRelationshipSpecialtyStart DateEnd Date Fatoumata Chase MD [address] [facility] [place] [phone] PCP - Generalmily Scwfgkzw19/4/23Team MemberRelationshipSpecialtyStart DateEnd Date Fatoumata Chase MD [address] [facility] [place] [phone] PCP - GeneralFamily Ixcsxrtd99/4/23 Team Status: Inactive Member Role Status Dates Fatoumata Chase MD Primary Care Provide r, Attending Provider Active Start: December 07, 2024 End: December 07, 2024Team MemberRelationshipSpecialtyStart DateEnd Date Fatoumata Chase MD PCP - GeneralFamily Kvsdvxlv87/4/23Team MemberRelationshipSpecialtyStart DateEnd Date Fatoumata Chase MD PCP - GeneralFamily Nsqhctys19/4/23Team MemberRelationshipSpecialtyStart DateEnd Date Fatoumata Chase MD [address] [facility] [place] [phone] PCP - GeneralFamily Medicine01/18/25Team MemberRelationshipSpecialtyStart DateEnd Date Fatoumata Chase MD [address] [facility] [place] [address] PCP - GeneralFamily Medicine01/18/25Team MemberRelationshipSpecialtyStart DateEnd Date Fatoumata Chase MD [address] [facility] [place] [address] PCP - GeneralFamily Medicine01/18/25Team MemberRelationshipSpecialtyStart DateEnd Date Fatoumata Chase MD [address] [facility] [place] [address] PCP - GeneralFamily Medicine01/18/25Team MemberRelationshipSpecialtyStart DateEnd Date Fatoumata Chase MD [address] [facility] [place] [address] PCP - GeneralFamily Medicine01/18/25Team MemberRelationshipSpecialtyStart DateEnd Date Fatoumata Chase MD [address] [facility] [place] [address] PCP - GeneralFamily Medicine01/18/25Team MemberRelationshipSpecialtyStart DateEnd Date Fatoumata Chase MD [address] [facility] [facility] [place] [address] PCP - GeneralFamily Medicine01/18/25 Team Status: Inactive Member Role Status Dates Fatoumata Chase MD Primary Care Provider Active Start: June 08, 2025 End: June 08, 2025Fatoumata Chase MDAttunc [facility] [place] ProviderActiveStart: June 08, 2025 End: June 08, 2025 Goals (unrecognized section and content) Goals may be documented in a n alternate section INFORMATION SOURCE (unrecogn ized section and content) DATE CREATED AUTHOR 07/24/2022 [facility] DATE CREATED AUTHOR AUTHOR'S ORGANIZ ATION 01/30/2023 [facility] DATE CREATED AUTHOR AUTHOR'S ORGANIZ ATION 06/01/2023 [facility] DATE CREATED AUTHOR AUTHOR'S ORGANIZ ATION 07/14/2025 [facility] DATE CREATED AUTHOR AUTHOR'S ORGANIZ ATION 07/20/2025 [facility] FOR RECORDS PERTAINING TO PATIENTS WHO [...] BE BASED ON THE PRIMARY CLINICAL RECORDS. [facility] [employer] [facility]. provides no warranty or guarantee of the accuracy or completeness of information in this document.
[2025-08-16 10:58] LABS: Anion Gap 10.3; Blood Urea Nitrogen 27.0 mg/dL (7.0-18.0); Calcium 9.7 mg/dL (8.5-10.1); Carbon Dioxide 30.9 mmol/L (21.0-32.0); Chloride 105 mmol/L (98-107); Estimated GFR (African America 56 (>=60 mL/min/1.73m^2); Estimated GFR (Non-African Ame 46 (>=60 mL/min/1.73m^2); Glucose 131 mg/dL (74-106); NT Pro B Type Natriuretic Pept 50.0 pg/mL (<=1800.0); Potassium 4.2 mmol/L (3.5-5.1); Sodium 142 mmol/L (136-145)
== END 2025-08-16 09:51 | disposition home or self-care (01) ==
LOC: LAB 09:56
PROVIDERS: PCP Family Medicine; Visit Provider Internal Medicine Cardiovascular Disease
DX: I50.41 Acute combined systolic (congestive) and diastolic (congestive) heart failure (principal)
CPT/HCPCS: 36415; 80048; 83880

== ENCOUNTER 2025-09-03 10:34 | Inpatient (IN) | payer MEDICARE, SELFPAY ==
[2025-09-03 10:43] VITALS: BP 164/61; PULSE 82; TEMP 36.6; O2SAT 99; BMI 33.8
--- NOTE | 2025-09-03 10:58 | CT_ITS ---
The [address] [address] Patient Name: SALMA QUAN MRN: [id number] date: 1935 Sex: F Assigned Patient Location: ED.MAIN Current Patient Location: ED.MAIN Accession/Order Number: [id number] Exam Date: 09/03/2025 11:19 Report Date: 09/03/2025 11:54 At the request of: SARAH RHODES MD Procedure: CT cervical spine wo con CLINICAL DATA: Patient fell onto face from standing position. Abrasions at the left cheek and chin. CT BRAIN WITHOUT CONTRAST: COMPARISON: 04/21/2023 TECHNIQUE: Contiguous axial unenhanced images were obtained through the brain. This CT exam was performed using one or more following dose reduction techniques: Automated exposure control, adjustment of the mA and/or kV according to patient size, or use of iterative reconstruction technique. FINDINGS: There is generalized atrophy. The ventricles are within normal limits for size and position. Minor microvascular changes are again noted. There are no additional areas of abnormal attenuation. There is no hemorrhage, mass effect or extra-axial collections. The calvarium is intact. The imaged paranasal sinuses and mastoid air cells are clear. There is mild carotid siphon plaque. CT/CT facial bones wo con IMPRESSION: AGE-RELATED CHANGES. NO ACUTE INTRACRANIAL TRAUMA. MAXILLOFACIAL CT WITHOUT CONTRAST: COMPARISON: None TECHNIQUE: Spiral axial unenhanced images were obtained through the facial bones. Coronal, sagittal and 3-D volume rendered reconstructions were also reviewed. This CT exam was performed using one or more following dose reduction techniques: Automated exposure control, adjustment of the mA and/or kV according to patient size, or use of iterative reconstruction technique. FINDINGS: No facial bone fracture or bony destruction is identified. There is appropriate development and pneumatization of the paranasal sinuses. There is no mucosal thickening or fluid levels. The ostiomeatal complexes are patent. There is nasal septal deviation to the left. The intraorbital contents are unremarkable. There are degenerative changes at the mandibular condyles. There is periapical lucency around the roots of the first upper molar on the right. Soft tissue contusion with swelling is seen at the left cheek. Minor subcutaneous edema is also visualized at the chin, greater on the left. IMPRESSION: NO EVIDENCE OF FACIAL BONE INJURY CT CERVICAL SPINE WITHOUT CONTRAST WITH 3D RECONSTRUCTIONS: COMPARISON: 03/01/2022 TECHNIQUE: Spiral axial unenhanced images were obtained through the cervical spine. Sagittal, coronal and 3D volume-rendered reconstructions were also reviewed. This CT exam was performed using one or more following dose reduction techniques: Automated exposure control, adjustment of the mA and/or kV according to patient size, or use of iterative reconstruction technique. FINDINGS: Alignment is maintained in the sagittal plane. No acute compression fractures are identified. Disc space narrowing is present at C6-7 and C7-T1. There is endplate spurring as well as bilateral facet hypertrophy with similar associated thecal sac effacement and foraminal impingement. The atlantoaxial relationship is maintained. No prevertebral soft tissue swelling is seen. Carotid artery plaque is visualized. There are some shotty cervical lymph nodes. The thyroid lobes are prominent interstitial nodularity including calcification on the left. The upper imaged lungs show no contributory findings. IMPRESSION: SIMILAR DEGENERATIVE CHANGES. NO ACUTE BONY INJURY. Impression dictated by: Elisa Gutierrez M.D. 09/03/2025 11:54 AM Dictation Location: [employer] Electronically authenticated by: [id number] Y Date: 09/03/2025 11:54
--- NOTE | 2025-09-03 10:58 | CT_ITS ---
The [address] [address] Patient Name: SALMA QUAN MRN: [id number] date: 1935 Sex: F Assigned Patient Location: ED.MAIN Current Patient Location: ED.MAIN Accession/Order Number: [id number] Exam Date: 09/03/2025 11:19 Report Date: 09/03/2025 11:54 At the request of: SARAH RHODES MD Procedure: CT cervical spine wo con CLINICAL DATA: Patient fell onto face from standing position. Abrasions at the left cheek and chin. CT BRAIN WITHOUT CONTRAST: COMPARISON: 04/21/2023 TECHNIQUE: Contiguous axial unenhanced images were obtained through the brain. This CT exam was performed using one or more following dose reduction techniques: Automated exposure control, adjustment of the mA and/or kV according to patient size, or use of iterative reconstruction technique. FINDINGS: There is generalized atrophy. The ventricles are within normal limits for size and position. Minor microvascular changes are again noted. There are no additional areas of abnormal attenuation. There is no hemorrhage, mass effect or extra-axial collections. The calvarium is intact. The imaged paranasal sinuses and mastoid air cells are clear. There is mild carotid siphon plaque. CT/CT head/brain wo con IMPRESSION: AGE-RELATED CHANGES. NO ACUTE INTRACRANIAL TRAUMA. MAXILLOFACIAL CT WITHOUT CONTRAST: COMPARISON: None TECHNIQUE: Spiral axial unenhanced images were obtained through the facial bones. Coronal, sagittal and 3-D volume rendered reconstructions were also reviewed. This CT exam was performed using one or more following dose reduction techniques: Automated exposure control, adjustment of the mA and/or kV according to patient size, or use of iterative reconstruction technique. FINDINGS: No facial bone fracture or bony destruction is identified. There is appropriate development and pneumatization of the paranasal sinuses. There is no mucosal thickening or fluid levels. The ostiomeatal complexes are patent. There is nasal septal deviation to the left. The intraorbital contents are unremarkable. There are degenerative changes at the mandibular condyles. There is periapical lucency around the roots of the first upper molar on the right. Soft tissue contusion with swelling is seen at the left cheek. Minor subcutaneous edema is also visualized at the chin, greater on the left. IMPRESSION: NO EVIDENCE OF FACIAL BONE INJURY CT CERVICAL SPINE WITHOUT CONTRAST WITH 3D RECONSTRUCTIONS: COMPARISON: 03/01/2022 TECHNIQUE: Spiral axial unenhanced images were obtained through the cervical spine. Sagittal, coronal and 3D volume-rendered reconstructions were also reviewed. This CT exam was performed using one or more following dose reduction techniques: Automated exposure control, adjustment of the mA and/or kV according to patient size, or use of iterative reconstruction technique. FINDINGS: Alignment is maintained in the sagittal plane. No acute compression fractures are identified. Disc space narrowing is present at C6-7 and C7-T1. There is endplate spurring as well as bilateral facet hypertrophy with similar associated thecal sac effacement and foraminal impingement. The atlantoaxial relationship is maintained. No prevertebral soft tissue swelling is seen. Carotid artery plaque is visualized. There are some shotty cervical lymph nodes. The thyroid lobes are prominent interstitial nodularity including calcification on the left. The upper imaged lungs show no contributory findings. IMPRESSION: SIMILAR DEGENERATIVE CHANGES. NO ACUTE BONY INJURY. Impression dictated by: Elisa Gutierrez M.D. 09/03/2025 11:54 AM Dictation Location: [employer] Electronically authenticated by: [id number] Y Date: 09/03/2025 11:54
--- NOTE | 2025-09-03 11:00 | CT_ITS ---
The [address] [address] Patient Name: SALMA QUAN MRN: [id number] date: 1935 Sex: F Assigned Patient Location: ED.MAIN Current Patient Location: ED.MAIN Accession/Order Number: [id number] Exam Date: 09/03/2025 11:19 Report Date: 09/03/2025 11:54 At the request of: SARAH RHODES MD Procedure: CT cervical spine wo con CLINICAL DATA: Patient fell onto face from standing position. Abrasions at the left cheek and chin. CT BRAIN WITHOUT CONTRAST: COMPARISON: 04/21/2023 TECHNIQUE: Contiguous axial unenhanced images were obtained through the brain. This CT exam was performed using one or more following dose reduction techniques: Automated exposure control, adjustment of the mA and/or kV according to patient size, or use of iterative reconstruction technique. FINDINGS: There is generalized atrophy. The ventricles are within normal limits for size and position. Minor microvascular changes are again noted. There are no additional areas of abnormal attenuation. There is no hemorrhage, mass effect or extra-axial collections. The calvarium is intact. The imaged paranasal sinuses and mastoid air cells are clear. There is mild carotid siphon plaque. CT/CT cervical spine wo con IMPRESSION: AGE-RELATED CHANGES. NO ACUTE INTRACRANIAL TRAUMA. MAXILLOFACIAL CT WITHOUT CONTRAST: COMPARISON: None TECHNIQUE: Spiral axial unenhanced images were obtained through the facial bones. Coronal, sagittal and 3-D volume rendered reconstructions were also reviewed. This CT exam was performed using one or more following dose reduction techniques: Automated exposure control, adjustment of the mA and/or kV according to patient size, or use of iterative reconstruction technique. FINDINGS: No facial bone fracture or bony destruction is identified. There is appropriate development and pneumatization of the paranasal sinuses. There is no mucosal thickening or fluid levels. The ostiomeatal complexes are patent. There is nasal septal deviation to the left. The intraorbital contents are unremarkable. There are degenerative changes at the mandibular condyles. There is periapical lucency around the roots of the first upper molar on the right. Soft tissue contusion with swelling is seen at the left cheek. Minor subcutaneous edema is also visualized at the chin, greater on the left. IMPRESSION: NO EVIDENCE OF FACIAL BONE INJURY CT CERVICAL SPINE WITHOUT CONTRAST WITH 3D RECONSTRUCTIONS: COMPARISON: 03/01/2022 TECHNIQUE: Spiral axial unenhanced images were obtained through the cervical spine. Sagittal, coronal and 3D volume-rendered reconstructions were also reviewed. This CT exam was performed using one or more following dose reduction techniques: Automated exposure control, adjustment of the mA and/or kV according to patient size, or use of iterative reconstruction technique. FINDINGS: Alignment is maintained in the sagittal plane. No acute compression fractures are identified. Disc space narrowing is present at C6-7 and C7-T1. There is endplate spurring as well as bilateral facet hypertrophy with similar associated thecal sac effacement and foraminal impingement. The atlantoaxial relationship is maintained. No prevertebral soft tissue swelling is seen. Carotid artery plaque is visualized. There are some shotty cervical lymph nodes. The thyroid lobes are prominent interstitial nodularity including calcification on the left. The upper imaged lungs show no contributory findings. IMPRESSION: SIMILAR DEGENERATIVE CHANGES. NO ACUTE BONY INJURY. Impression dictated by: Elisa Gutierrez M.D. 09/03/2025 11:54 AM Dictation Location: [facility] Electronically authenticated by: [id number] Y Date: 09/03/2025 11:54
[2025-09-03 11:20] LABS: Hematocrit 47.0 % (36.0-48.0); Hemoglobin 15.6 g/dL (12.0-16.0); Immature Granulocytes Abs Auto 0.07 10^3/uL (0.00-0.03); Immature Granulocytes Pct Auto 0.9 % (0.0-0.5); Lymphocytes Absolute Auto 0.8 10^3/uL (1.2-3.8); Mean Corpuscular HGB Conc 33.2 g/dL (29.9-35.2); Mean Corpuscular Hemoglobin 31.9 pg (26.7-34.0); Mean Corpuscular Volume 96.1 fL (81.0-99.0); Platelet Count 232 10^3/uL (150-450); Red Blood Count 4.89 10^6/uL (4.20-5.40); White Blood Count 8.1 10^3/uL (4.0-11.0)
[2025-09-03] MEDS: DIPHTH,PERTUSS(ACELL),TET VAC 0.5 ML SYRINGE IM (11:29)
[2025-09-03 11:32] LABS: Alanine Aminotransferase 27 U/L (14-59); Albumin Globulin Ratio 0.7; Albumin Level 2.9 g/dL (3.4-5.0); Alkaline Phosphatase 95 U/L (46-116); Anion Gap 10.7; Aspartate Amino Transferase 32 U/L (15-37); Blood Urea Nitrogen 20.0 mg/dL (7.0-18.0); Calcium 9.4 mg/dL (8.5-10.1); Carbon Dioxide 29.1 mmol/L (21.0-32.0); Chloride 105 mmol/L (98-107); Estimated GFR (African America >60 (>=60 mL/min/1.73m^2); Estimated GFR (Non-African Ame 53 (>=60 mL/min/1.73m^2); Globulin 4.2 g/dL; Glucose 131 mg/dL (74-106); Potassium 3.8 mmol/L (3.5-5.1); Sodium 141 mmol/L (136-145); Total Protein 7.1 g/dL (6.4-8.2)
--- NOTE | 2025-09-03 12:02 | ED.FALL1 ---
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 problem and she has been dragging her leg when walking which has been worked up before according to the daughter and she was provided compression stocking but not helping her symptoms The patient primary care ordered the patient to have PT at home which is twice a week and she might get that next week, but according to the daughter at the bedside and the patient lives by herself, she is at risk of falling multiple times Related Data Home Medications ?Medication ?Instructions ?Recorded ?Confirmed oxybutynin chloride 5 mg tablet 5 mg PO DAILY 04/20/23 09/03/25 ropinirole 0.5 mg tablet 0.5 mg PO .hs 04/20/23 09/03/25 nitrofurantoin 100 mg PO DAILY 12/25/23 09/03/25 monohydrate/macrocrystals 100 mg capsule ondansetron HCl 4 mg tablet 4 mg PO Q12H PRN nausea and 12/25/23 09/03/25 vomiting chlorthalidone 25 mg tablet 25 mg PO QDAY 09/03/25 09/03/25 spironolactone 25 mg tablet 25 mg PO QDAY 09/03/25 09/03/25 Allergies Allergy/AdvReac Type Severity Reaction Status Date / Time naproxen AdvReac Mild Unknown Verified 09/03/25 10:39 Opioid HPI Opioid Management Most Recent Pain and Opioid Data: Last Pain Scale 5 Today, 12:15 Review of Systems ROS Status of ROS 10 or more systems reviewed and unremarkable except as noted in history and below [facility] Medical History (Updated 09/03/25 @ 14:07 by Margarita Guevara MD) Benign essential hypertension ?I10 - Essential (primary) hypertension (ICD-10) Type 2 diabetes mellitus with hyperglycemia ?E11.65 - Type 2 diabetes mellitus with hyperglycemia (ICD-10) Recurrent UTI ?N39.0 - Urinary tract infection, site not specified (ICD-10) Edema ?R60.9 - Edema, unspecified (ICD-10) Restless legs ?G25.81 - Restless legs syndrome (ICD-10) Surgical History (Updated 01/16/24 @ 15:35 by Saira Aj RN) History of bladder surgery ?Z98.890 - Other specified postprocedural states (ICD-10) Hx of cholecystectomy ?Z90.49 - Acquired absence of other specified parts of digestive tract (ICD-10) Social History Within the past year, how often did you have a drink containing alcohol: never Score interpretation: A score less than 3 is consistent with normal alcohol consumption. Smoking status: Never smoker Non-prescribed substance use: denies use Previous occupational history: retired Highest level of school completed/degree received: high school graduate Are you now , , , , never or living with a partner: In a typical week, how many times do you talk on the telephone with family, friends, or neighbors: 3 or more times per week How often do you get together with friends or relatives: 3 or more times per week How often do you attend anabaptist or gnosticism services: 1-3 times per year Little interest or pleasure in doing things: not at all Feeling down, depressed, or hopeless: not at all Feel stressed/tense/nervous/anxious/difficulty sleeping: not at all Do you think of yourself as: straight/heterosexual Gender Identity: female Exam Narrative Exam Narrative: Nurses notes and vital signs reviewed and patient is not hypoxic. General: Well-appearing and in no apparent distress. Skin: Warm, dry, no pallor noted. No rash. Head: Contusion to the left side of the face there is abrasion that is almost 3 cm that is superficial to the left side of the cheek, the patient also have a 1 cm submandibular laceration. Neck: Supple, non-tender. Eye: Pupils are equal, round and EOMI. No scleral icterus. Ears, Nose, Mouth, and Throat:Oral mucosa is moist, no posterior oropharynx erythema, uvula is mid-line Cardiovascular: Regular Rate and Rhythm without murmur, gallop or rub. Respiratory: No accessory muscle use or respiratory distress. Lungs are clear to auscultation, no wheezing, rales or rhonchi Chest Wall: no tenderness Back: There is intervertebral lines at the thoracic level as well as mildly at the lumbar level no intervertebral line tenderness Musculoskeletal: Significant swelling of the left leg compared to the right that is chronic according to the daughter at the bedside the left leg is almost twice the size of the right. GI: Abdomen is soft, non-distended. Normal bowel sounds. No masses appreciated. No tenderness to palpation. No rebound, guarding, or rigidity noted. Neurological: A&O x3 No cranial nerve dysfunction observed. No truncal ataxia. Moves all extremities. Sensation intact. Psychiatric: Cooperative and interactive. Normal mood and affect. Constitutional Vital Signs, click to edit/add: Last Vital Signs Temp 97.8 F 09/03/25 10:43 Pulse 71 09/03/25 13:04 Resp 16 09/03/25 13:04 BP 160/67 H 09/03/25 13:04 Pulse Ox 97 09/03/25 13:04 O2 Del Method Room Air 09/03/25 13:04 Course Vital Signs Vital signs: Vital Signs Temperature 97.8 F 09/03/25 10:43 Pulse Rate 82 09/03/25 10:43 Respiratory Rate 12 09/03/25 10:43 Blood Pressure 164/61 H 09/03/25 10:43 Pulse Oximetry 99 09/03/25 10:43 Oxygen Delivery Method Room Air 09/03/25 10:43 Temperature 97.8 F 09/03/25 10:43 Pulse Rate 71 09/03/25 13:04 Respiratory Rate 16 09/03/25 13:04 Blood Pressure 160/67 H 09/03/25 13:04 Pulse Oximetry 97 09/03/25 13:04 Oxygen Delivery Method Room Air 09/03/25 13:04 MDM - Fall MDM Narrative Medical decision making narrative: CT of the head as well as CT cervical spine showed no acute pathology CT of the face as well as CT of the lumbar spine and thoracic spine as the patient was complaining of back pain also are negative After cleaning the area in the left mandible in addition to infiltrating the area with 2 cc of lidocaine 1% with no epinephrine 2 stitches of 3-0 Prolene applied The patient stitches to be removed after 5 to 7 days CBC and chemistry showed no acute pathology and the patient does not have any neurological weakness but is mostly the obvious left leg lymphedema is mostly the reason for the patient ambulation difficulty The patient case discussed with and he agreed on admitting the patient for further evaluation of multiple falls and facial contusion Lab Data Labs: Lab Results 09/03/25 09/03/25 Range/Units 11:09 12:30 WBC 8.1 (4.0-11.0) 10^3/uL RBC 4.89 (4.20-5.40) 10^6/uL Hgb 15.6 (12.0-16.0) g/dL Hct 47.0 (36.0-48.0) % MCV 96.1 (81.0-99.0) fL MCH 31.9 (26.7-34.0) pg MCHC 33.2 (29.9-35.2) g/dL RDW 13.4 (11.0-15.0) % Plt Count 232 (150-450) 10^3/uL MPV 9.2 L (9.5-13.5) fL Neut % (Auto) 78.4 H (43.0-75.0) % Lymph % (Auto) 9.8 L (20.5-60.0) % [place] % (Auto) 8.9 (1.7-12.0) % Eos % (Auto) 1.0 (0.9-7.0) % Baso % (Auto) 1.0 (0.2-2.0) % Neut # (Auto) 6.4 (1.4-6.5) 10^3/uL Lymph # (Auto) 0.8 L (1.2-3.8) 10^3/uL [place] # (Auto) 0.7 (0.3-0.8) 10^3/uL Eos # (Auto) 0.1 (0.0-0.7) 10^3/uL Baso # (Auto) 0.1 (0.0-0.1) 10^3/uL Abs Immat Gran (auto) 0.07 H (0.00-0.03) 10^3/uL Imm/Tot Granulo (auto) 0.9 H (0.0-0.5) % Sodium 141 (136-145) mmol/L Potassium 3.8 (3.5-5.1) mmol/L Chloride 105 (98-107) mmol/L Carbon Dioxide 29.1 (21.0-32.0) mmol/L Anion Gap 10.7 BUN 20.0 H (7.0-18.0) mg/dL Creatinine 0.99 (0.55-1.02) mg/dL Est GFR ( Amer) >60 (>=60 mL/min/1.73m^2) Est GFR (Non-Af Amer) 53 L (>=60 mL/min/1.73m^2) BUN/Creatinine Ratio 20.2 Glucose 131 H (74-106) mg/dL Calcium 9.4 (8.5-10.1) mg/dL Total Bilirubin 1.2 H (0.2-1.0) mg/dL AST 32 (15-37) U/L ALT 27 (14-59) U/L Alkaline Phosphatase 95 (46-116) U/L Total Protein 7.1 (6.4-8.2) g/dL Albumin 2.9 L (3.4-5.0) g/dL Globulin 4.2 g/dL Albumin/Globulin Ratio 0.7 Urine Color Yellow (YELLOW) Urine Clarity Clear (CLEAR) Urine pH 5.5 (5.0-9.0) Ur Specific [place] 1.025 (1.005-1.025) Urine Protein Negative (NEG/TRACE) mg/dL Urine Glucose (UA) Negative (NEGATIVE) mg/dL Urine Ketones Negative (NEGATIVE) mg/dL Urine Occult Blood Trace-i (NEGATIVE) Urine Nitrite Negative (NEGATIVE) Urine Bilirubin Negative (NEGATIVE) Urine Urobilinogen 0.2 (0.2-1.0) EU/dL Ur Leukocyte Esterase Negative (NEGATIVE) Urine RBC 2-5 A (0-2) #/HPF Urine WBC 2-5 A (NONE SEEN) #/HPF Ur Squamous Epith Cells Few A (NONE/RARE) #/LPF Urine Crystals None seen (None Seen) #/HPF Urine Bacteria Moderate A (NONE SEEN) #/HPF Urine Casts None seen (NONE SEEN) #/LPF Urine Mucus None seen (NONE SEEN) Ur Culture [facility]icated? [facility] [place] Discharge Plan Discharge Chief Complaint: Fall Clinical Impression: Fall, Contusion of face, Laceration, Multiple falls Patient Disposition: Admitted As Inpatient Time of Disposition Decision: 14:07
--- NOTE | 2025-09-03 12:04 | CT_ITS ---
The [address] [address] Patient Name: SALMA QUAN MRN: [id number] date: 1935 Sex: F Assigned Patient Location: ED.MAIN Current Patient Location: ED.MAIN Accession/Order Number: [id number] Exam Date: 09/03/2025 12:42 Report Date: 09/03/2025 13:22 At the request of: SARAH RHODES MD Procedure: CT lumbar spine wo con CLINICAL DATA: Patient fell today and has back pain. CT THORACIC AND LUMBAR SPINE WITHOUT CONTRAST WITH 3-D RECONSTRUCTIONS COMPARISON: None Spiral axial unenhanced images were obtained through the thoracic and lumbar spine. Sagittal, coronal and 3-D volume rendered reconstructions were reviewed. This CT exam was performed using one or more following dose reduction techniques: Automated exposure control, adjustment of the mA and/or kV according to patient size, or use of iterative reconstruction technique. THORACIC: There is subtle upper thoracic levoscoliotic curvature which may be positional. The bony structures are osteopenic. No acute compression fractures or displacement are seen. The disc spaces are maintained. There is multilevel endplate spurring. A tiny Schmorl's node is visualized at the inferior aspect of T9. No acute displaced rib fractures are identified within the icldm-ga-sbur. No paraspinal soft tissue abnormalities are seen. A tiny hiatal hernia is noted. There are some AP window lymph nodes. The lungs show interstitial thickening and bronchiectasis at the bases. There is a small nodule within the left upper lobe abutting the top of the major fissure which may be an intrapulmonary lymph node. LUMBAR: There is osteopenia. There is prior laminectomy and fusion with posterior rods and pedicle screws extending from L3 through L5. There is also an L4-5 interbody grafting devices. No acute compression fractures are noted. There is minor retrolisthesis of L2 on L3 and anterolisthesis of L4 and L5 and L5 on S1. There is moderate disc space narrowing at L2-3. Endplate spurring is present. There is also facet hypertrophy. There is some associated stenosis at the unfused upper lumbar levels, greatest at L2-3 . The SI joints are intact and there is minor additional degenerative change. The pelvic bones and sacrum in the [id number] show no acute bony injury. The paraspinal muscles are atrophic. There is atherosclerotic plaque involving the aorta, iliac and some of the visceral arteries included on the study. CT/CT thoracic spine wo con IMPRESSION: OSTEOPENIA AND DEGENERATIVE CHANGES. POSTOPERATIVE CHANGES AT THE LOWER LUMBAR SPINE. NO ACUTE BONY INJURY. Impression dictated by: Elisa Gutierrez M.D. 09/03/2025 1:22 PM Dictation Location: [facility] Electronically authenticated by: [id number] Y Date: 09/03/2025 13:22
--- NOTE | 2025-09-03 12:05 | CT_ITS ---
The [address] [address] Patient Name: SALMA QUAN MRN: [id number] date: 1935 Sex: F Assigned Patient Location: ED.MAIN Current Patient Location: ED.MAIN Accession/Order Number: [id number] Exam Date: 09/03/2025 12:42 Report Date: 09/03/2025 13:22 At the request of: SARAH RHODES MD Procedure: CT lumbar spine wo con CLINICAL DATA: Patient fell today and has back pain. CT THORACIC AND LUMBAR SPINE WITHOUT CONTRAST WITH 3-D RECONSTRUCTIONS COMPARISON: None Spiral axial unenhanced images were obtained through the thoracic and lumbar spine. Sagittal, coronal and 3-D volume rendered reconstructions were reviewed. This CT exam was performed using one or more following dose reduction techniques: Automated exposure control, adjustment of the mA and/or kV according to patient size, or use of iterative reconstruction technique. THORACIC: There is subtle upper thoracic levoscoliotic curvature which may be positional. The bony structures are osteopenic. No acute compression fractures or displacement are seen. The disc spaces are maintained. There is multilevel endplate spurring. A tiny Schmorl's node is visualized at the inferior aspect of T9. No acute displaced rib fractures are identified within the [id number]-jafc. No paraspinal soft tissue abnormalities are seen. A tiny hiatal hernia is noted. There are some AP window lymph nodes. The lungs show interstitial thickening and bronchiectasis at the bases. There is a small nodule within the left upper lobe abutting the top of the major fissure which may be an intrapulmonary lymph node. LUMBAR: There is osteopenia. There is prior laminectomy and fusion with posterior rods and pedicle screws extending from L3 through L5. There is also an L4-5 interbody grafting devices. No acute compression fractures are noted. There is minor retrolisthesis of L2 on L3 and anterolisthesis of L4 and L5 and L5 on S1. There is moderate disc space narrowing at L2-3. Endplate spurring is present. There is also facet hypertrophy. There is some associated stenosis at the unfused upper lumbar levels, greatest at L2-3 . The SI joints are intact and there is minor additional degenerative change. The pelvic bones and sacrum in the pectx-xu-vhim show no acute bony injury. The paraspinal muscles are atrophic. There is atherosclerotic plaque involving the aorta, iliac and some of the visceral arteries included on the study. CT/CT lumbar spine wo con IMPRESSION: OSTEOPENIA AND DEGENERATIVE CHANGES. POSTOPERATIVE CHANGES AT THE LOWER LUMBAR SPINE. NO ACUTE BONY INJURY. Impression dictated by: Elisa Gutierrez M.D. 09/03/2025 1:22 PM Dictation Location: [facility] Electronically authenticated by: [id number] Y Date: 09/03/2025 13:22
--- OUTSIDE RECORDS SUMMARY | 2025-09-03 12:37 | XMS_ITS | Clinical Summary ---
Author Organization [facility] Address [address] [place] [address] Care Team Providers Care Floral Arranger Name Role Phone Fatoumata Chase MD Primary Care Provider Allergies Active AllergyReactionsCriticalityNoted DateCommentsClarithromycinUnknown,Other 02/02/20253627UznkrzaypwxnspsfcsOaqub52/23/8784HohjplfbfsloCofyh01/23/2025 Xmwelal-Vgczreegz-RxxuxvmpulkoXflvk72/14/3498HhuupkvigdkrkWgjwktq88/23/2025 ThjbsiqkCdzjlls03/20/3715CdvducaeaQdtsqsb83/23/2025 Medications MedicationSigDispense QuantityRefillsLast FilledStart DateEnd DateStatus nitrofurantoin, [...] by mouth in the morning. 30 tablet /82283310/07/2025ctive potassium chloride CR (Klor-Con M20) 20 mEq ER tablet Take 1 tablet by mouth in the morning.Discontinued(Therapy completed) Active Problems ProblemNoted DateDiagnosed ColsSnuiihgl61/22/2025Acute adlvzqeddhggt74/21/2025 Balance bszwftum67/21/5931Crqqndcglvrjhx87/21/2025HF (congestive heart failure) 07/06/2025hronic cough07/06/2025Diabetes mellitus with hyperglycemia, without long-term current use of nqiopdb7307/06/2025Encounter for eovbueylsboa76/21/2025 HTN (hypertension)07/06/2025Lumbar degenerative disc ivmonoe9807/06/2025Lymphedema 07/06/2025Morbid puzmory5907/06/20259711Fkfdqb39/21/2025Obstructive sleep apnea 07/06/2025Interstitial lung eclsbqm7707/06/2025Restless leg /21/2025 Systolic ejection cqgacb56Upper airway cough upntwrij17/21/2025 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, without long-term current use of hjvadif3903/05/2023Hammer toes of both feet03/05/2023Onychomycosis 03/05/2023ain in both feet03/05/2023 Encounters DateTypeDepartmentCare BivzQhttbfcassp84/01/2025 9:00 AM ESTOffice Visit [facility] [address] [place] [address] Drake Diggs MD Chronic heart failure with preserved ejection fraction (HFpEF) (CMS/HCC) (Primary Dx); Morbid obesity (CMS/HCC); Nonrheumatic aortic valve wshpytlz23/01/2025Orders Only [facility] [address] [place] [address] Arlet Payne MA Acute combined systolic and diastolic heart failure (CMS/HCC) (Primary Dx); Mitral valve stenosis and aortic valve wavttjao77/24/2025 11:00 AM EDT - 07/09/2025 12:00 PM EDTSurgery [facility] Vascular Lab [address] [place] [address] Drake Diggs MD Right heart cath [84803 (CPT??)]07/09/2025 8:00 AM EDTLab [facility] Outpatient Draw Station [address] [place] [address] Abnormal EKG; Pre-op ivnuepuksr83/24/2025 7:56 AM EDT - 07/09/2025 11:55 AM EDTHospital Encounter [facility] Heart [facility] [place] [facility] [address] [place] [address] Drake Diggs MD Chronic heart failure with preserved ejection fraction (HFpEF) (CMS/HCC) (Primary Dx); Anasarca Discharge Disposition: Home or Self Care (01)07/08/20251227Errpok64/22/2025 10:20 AM EDTOffice Visit [facility] [address] [facility] [place] [address] Drake Diggs MD Anasarca (Primary Dx); Morbid obesity (CMS/HCC); Atrial premature beats07/07/2025Orders Only [facility] [address] [place] [address] Arlet Payne MA Abnormal EKG (Primary Dx); Pre-op dcgkjvobwp48/09/2025Telephone [facility] [address] [place] [address] Kerri Major MA from Last 3 Months Family History Medical HistoryRelationNameCommentsCancerFatherEmphysemaMotherRelationNameStatus CommentsBrotherDeceasedFatherDeceasedMotherDeceased Social History Tobacco UseTypesPacks/DayYears UsedDateSmoking Tobacco: NeverSmokeless Tobacco: Never Tobacco Cessation:Counseling Given: Not Answered Alcohol UseStandard Drinks/WeekCommentsNot Currently0 (1 standard drink = 0.6 oz pure alcohol)[place] Safety & EnvironmentAnswerDate RecordedFear of Current or Ex-PartnerNot on file12/19/2023Emotionally AbusedNot on file12/19/2023hysically AbusedNot on file12/19/2023Sexually AbusedNot on file12/19/2023hysically or Sexually AbusedNot on file12/19/2023CommentsNoSex and Gender Information ValueDate RecordedSex Assigned at NrdzpSdgxom01/17/2025 4:14 PM EDTLegal Sex Oacell1012/19/2023 9:45 AM EDTGender TvhndqtkPfdvat91/17/2025 4:14 PM EDTSexual OrientationHeterosexual or Cjvyspjm95/17/2025 4:14 PM EDT Last Filed Vital Signs Vital SignReadingTime TakenCommentsBlood Xlsbzevv777/6108/16/2025 9:15 AM EST Mxect162608/16/2025 9:15 AM ESTTemperature--Respiratory Fwtl2768 11:45 AM EDTOxygen Kboujrvujw56%08/16/2025 9:15 AM ESTInhaled Oxygen Concentration-- Dkrwir04 kg (172 lb)08/16/2025 9:15 AM MNNOntvdk178.9 cm (4' 11 )08/16/2025 9:15 AM ESTBody Mass Index34.7408/16/2025 9:15 AM EST Plan of Treatment Health MaintenanceDue DateLast DoneCommentsDiabetes: Hemoglobin A1C1935 Medicare Annual Wellness (AWV)1935Diabetes: Retinopathy Screening 1947Depression Rqlmumuqb01/02/1949Diabetes: Urine Protein Screening 1956dult Ovqnosr6803/17/1959Zoster Vaccines (1 of 2)1987Fall Risk Qziypccpy72/02/2002COVID-19 Vaccine ( season)512/, 11/22/2020, 1Pneumococcal Vaccine: 50+ DzctnYjgxstmvs40/10/2019, 01/29/2017, 10/17/2014Influenza YvuafgnJozwdqxwo67/23/2025, 06/08/2024, 07/19/2022, Additional history existsHIB VaccinesAged OutNo [...] topic Procedures Procedure NamePriorityDate/TimeAssociated DiagnosisCommentsRIGHT HEART CATH Srqtkyf5507/09/2025 11:11 AM EDT Anasarca %UVH1Qbxqydk24/24/2025 11:10 AM EDT %BUR2Dtkveir54/24/2025 11:04 AM EDT %PYI6Xpyqjhk53/24/2025 11:03 AM EDT %ZAY1Yyiklzf29/24/2025 11:02 AM EDT %SMG3Ywixrtb72/24/2025 11:00 AM EDT %UDJ5Gazypin30/24/2025 10:59 AM EDT CBC WITH AUTO AWXDVGKJWNGPJwwalek76/24/2025 8:02 AM EDT Abnormal EKG Pre-op evaluation B-TYPE NATRIURETIC WMJFSGOYmauetr98/24/2025 8:02 AM EDT Abnormal EKG Pre-op evaluation COMPREHENSIVE METABOLIC JXIYCUldwror90/24/2025 8:02 AM EDT Abnormal EKG Pre-op evaluation CBC AND UJMYYKOLGTUKFnnyago93/24/2025 8:02 AM EDT Abnormal EKG Pre-op evaluation [...] and a micropuncture access technique a 6 Thai sheath was placed in the right internal [...] Anasarca [R60.1] Authorizing ProviderResult TypeResult StatusChristopher Dontae [facility] CARDIAC CATH PROCEDURESFinal Result * (ABNORMAL) %HbO2 (07/09/2025 11:10 AM EDT) Only the most recent of6 resultswithin the time period is included. ComponentValueRef RangeTest MethodAnalysis TimePerformed AtPathologist Signature O2Hb%81.8(L)90.0 - 95.0 %07/09/2025 11:10 AM [facility] ([facility]) Specimen (Source)Anatomical Location / LateralityCollection Method / Volume Collection TimeReceived TimeBloodVenous blood specimen / Jixebnd2207/09/2025 11:10 AM EDT1 11:10 AM EDT Narrative Authorizing ProviderResult TypeResult StatusChristopher Dontae JAQUEZ POINT OF CARE TEST DOCKED DEVICE UNSOLICITED RESULTSFinal ResultPerforming Organization AddressCity/State/ZIP CodePhone Number [facility] ([facility]) [address] [place] [address] * (ABNORMAL) CBC auto differential (07/09/2025 8:02 AM EDT)ComponentValueRef RangeTest MethodAnalysis TimePerformed AtPathologist SignatureAuto WBC6.074.00 - 10.60 10*3/uL07/09/2025 8:46 AM [facility] ([facility])RBC4.463.80 - 5.00 10*6/uL07/09/2025 8:46 AM [facility] ([facility])Rvgwvsmioa01.312.0 - 15.0 g/dL07/09/2025 8:46 AM [facility] ([facility])Uefunnrpoj08.336.0 - 45.0 %07/09/2025 8:46 AM [facility] ([facility])MCV97.182.0 - 98.0 fL 07/09/2025 8:46 AM [facility] ([facility])MCH32.127.0 - 33.0 pg 07/09/2025 8:46 AM [facility] ([facility])MCHC33.032.0 - 35.0 g/dL 07/09/2025 8:46 AM [facility] ([facility])RDW13.911.5 - 15.0 %07/09/2025 8:46 AM [facility] ([facility])Neutrophils %55.040.0 - 72.0 %07/09/2025 8:46 AM [facility] ([facility])Lymphocytes %26.720.0 - 45.0 %07/09/2025 8:46 AM [facility] ([facility])Monocytes %11.55.0 - 12.0 %07/09/2025 8:46 AM [facility] ([facility])Eosinophils %4.30.0 - 6.0 %07/09/2025 8:46 AM [facility] ([facility])Basophils %1.5(H)0.0 - 1.0 %07/09/2025 8:46 AM [facility])Neutrophils Absolute3.341.60 - 7.60 10*3/uL07/09/2025 8:46 AM [facility])Lymphocytes Absolute 1.621.20 - 4.00 10*3/uL07/09/2025 8:46 AM [facility] ([facility]) Monocytes Absolute0.700.10 - 1.00 10*3/uL07/09/2025 8:46 AM [facility] ([facility])Eosinophils Absolute0.260.00 - 0.50 10*3/uL07/09/2025 8:46 AM [facility] ([facility])Basophils Absolute0.090.00 - 0.20 10*3/uL07/09/2025 8:46 AM [facility])Mugvjekau634607 - 400 10*3/uL07/09/2025 8:46 AM [facility] ([facility])nRBC %0.00 %07/09/2025 8:46 AM [facility] ([facility])Immature Granulocytes %1.00.0 - 1.0 %07/09/2025 8:46 AM [facility])Immature Granulocytes Absolute0.060.00 - 0.20 10*3/uL07/09/2025 8:46 AM [facility])Specimen (Source) Anatomical Location / LateralityCollection Method / VolumeCollection Time Received TimeBloodVenous blood specimen / UnknownVenipuncture / Unknown 07/09/2025 8:02 AM EDT1 8:33 AM EDT Narrative Authorizing ProviderResult TypeResult StatusChriscatalina Diggs [facility] BLOOD ORDERABLESFinal ResultPerforming OrganizationAddressCity/State/ZIP CodePhone Number [facility] ([facility]) [address] [place] [address] * B-type natriuretic peptide (07/09/2025 8:02 AM EDT)ComponentValueRef RangeTest MethodAnalysis TimePerformed AtPathologist FegvotnwfGQM130 - 100 pg/mL 07/09/2025 9:02 AM [facility] ([facility])Specimen (Source)Anatomical Location / LateralityCollection Method / VolumeCollection TimeReceived Time BloodVenous blood specimen / UnknownVenipuncture / Mkxudkl0507/09/2025 8:02 AM EDT1 8:33 AM EDT Narrative Authorizing ProviderResult TypeResult StatusChriscatalina Diggs [facility] BLOOD ORDERABLESFinal ResultPerforming OrganizationAddressCity/State/ZIP CodePhone Number [facility] ([facility]) [address] [place] [address] * (ABNORMAL) Comprehensive metabolic panel (07/09/2025 8:02 AM EDT)Component ValueRef RangeTest MethodAnalysis TimePerformed AtPathologist SignatureSodium 481647 - 145 mmol/L1 8:56 AM [facility] ([facility])Potassium 4.43.5 - 5.1 mmol/L1 8:56 AM [facility] ([facility])Qhjycamd617 98 - 107 mmol/L1 8:56 AM [facility] ([facility])TP55491 - 31 mmol/L1 8:56 AM [facility] ([facility])Anion Gap77 - 20 mmol/L 07/09/2025 8:56 AM [facility] ([facility])SKA502 - 25 mg/dL07/09/2025 8:56 AM [facility] ([facility])Creatinine0.760.60 - 1.20 mg/dL07/09/2025 8:56 AM [facility] ([facility])BUN/Creatinine Ratio26.310 8:56 AM [facility] ([facility])Pkekwvh6991 - 100 mg/dL07/09/2025 8:56 AM [facility] ([facility])Calcium8.88.6 - 10.3 mg/dL07/09/2025 8:56 AM [facility] ([facility])PEJ2138 - 39 U/L10 8:56 AM [facility] ([facility])ALT (SGPT)127 - 52 U/L1 8:56 AM [facility] ([facility]) Alkaline Pjffafnmkeb0390 - 104 U/L1 8:56 AM [facility] ([facility])Total Protein6.76.0 - 8.3 g/dL07/09/2025 8:56 AM [facility] ([facility])Albumin3.1(L)3.5 - 5.7 g/dL07/09/2025 8:56 AM [facility] ([facility])Total Bilirubin1.7(H)0.3 - 1.0 mg/dL07/09/2025 8:56 AM [facility] ([facility])eGFR75.3>60.0 mL/min/1.73m* 8:56 AM [facility] ([facility])Comment:The [facility]???s estimated glomerular filtration rate (eGFR) [...] TimeBloodVenous blood specimen / Unknown Venipuncture / Vqnluhs6807/09/2025 8:02 AM EDT1 8:33 AM EDT Narrative Authorizing ProviderResult TypeResult StatusChristopher Dontae [facility] BLOOD ORDERABLESFinal ResultPerforming OrganizationAddressCity/State/ZIP CodePhone Number [facility] ([place]) [address] [place], [place] [phone] from Last 3 Months Insurance Advance Directives * Full Code (Latest Code Status on File) Date ActivatedDate CjiteurwqlzQltefoih84/24/2025 11:19 AM07/09/2025 1:56 PM Care Teams Team MemberRelationshipSpecialtyStart DateEnd Date Fatoumata Chase MD [address] [place] [address] PCP - Yqoahgt78/22/25
--- OUTSIDE RECORDS SUMMARY | 2025-09-03 12:37 | XMS_ITS | Clinical Summary ---
Author Organization [facility] Address [address] [place] [address] Phone Care Team Providers Care [employer] Counter Person Name Role Phone Unavailable Primary Care Provider Unavailabl e Social History Tobacco UseTypesPacks/DayYears UsedDateSmoking Tobacco: Never Assessed CommentsUnknownSex and Gender InformationValueDate RecordedSex Assigned at Not on fileLegal IosVmteiq00/26/2022 7:03 AM ESTGender IdentityNot on fileSexual OrientationNot on file Plan of Treatment Not on file
--- OUTSIDE RECORDS SUMMARY | 2025-09-03 12:37 | XMS_ITS | Clinical Summary ---
Author Organization [facility] Address [address] [place] [address] Care Team Providers Care Property Assessment Monitor Name Role Phone Fatoumata Chase MD Primary Care Provider [phone] Allergies Active AllergyReactionsCriticalityNoted DateCommentsClarithromycinUnknown 02/02/20251581PajwmhggYfjtxkt70/20/2023 Medications MedicationSigDispense QuantityRefillsLast FilledStart DateEnd DateStatus furosemide (Lasix) 40 MG tablet 12/20/2022ctive potassium chloride CR (K-Tab) 20 MEQ ER tablet Take 20 mEq by mouth Daily Take with food.12/20/2022ctive ondansetron (Zofran) 4 MG tablet Take 4 mg by mouth 2 (two) times a day as danovd0002/25/2023ctive rOPINIRole (Requip) 0.5 MG tablet 12/27/2022ctive metOLazone (Zaroxolyn) 2.5 MG tablet 10/28/2022ctive Active Problems ProblemNoted DateDiagnosed AfkqXedydjyqzrdoz36/20/2023ain in both feet 03/05/2023Hammer toes of both feet03/05/2023ontrolled type 2 diabetes mellitus with circulatory disorder, without long-term current use of cbbqniw1103/05/2023 Encounters DateTypeDepartmentCare YwldMjanemwupcg51/24/2025bstract [facility] [address] [place] [address] Stephon Kincaid DPM 08/06/2025[facility]phone [facility] [address] [place] [address] Stephon Curry DPM Advice Only (Keeping DM shoes )07/19/2025 2:00 PM ESTOffice Visit [facility] [address] [place] [address] Stephon Kincaid DPM Hammer toes of both feet (Primary Dx); Equinus contracture of left ankle; Equinus contracture of right ankle; Lymphedema; Diabetic polyneuropathy associated with type 2 diabetes mellitus (HCC)07/19/2025 [facility] flowsheet [facility] [address] [place] [address] Stephon Kincaid DPM 07/19/20252549Fignlk40/13/2025 9:30 AM EDTOffice Visit [facility] [address] [place] [address] Stephon Kincaid DPM Hammer toes of both feet (Primary Dx); Equinus contracture of left ankle; Equinus contracture of right ankle; Lymphedema; Diabetic polyneuropathy associated with type 2 diabetes mellitus (HCC)06/28/2025 [facility] flowsheet [facility] [address] [place] [address] Stephon Kincaid DPM 06/28/20256597Ouyzvv71/29/2025 2:00 PM EDTOffice Visit [facility] [address] [place] [address] Stephon Kincaid DPM Diabetic polyneuropathy associated with type 2 diabetes mellitus (HCC) (Primary Dx); 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, without long-term current use of insulin (HCC); Lymphedema; Hammer toes of both feet; Equinus contracture of left ankle; Equinus contracture of right ankle06/14/2025[facility] flowsheet [facility] [address] [place] [address] Stephon Kincaid DPM 06/14/20254421Piqock16/Travelfrom Last 3 Months Family History Medical HistoryRelationNameCommentsCancerFatherCancerMaternal GrandmotherStomach cancerMotherRelationNameStatusCommentsFatherDeceasedMaternal GrandmotherMother Social History Tobacco UseTypesPacks/DayYears UsedDateSmoking Tobacco: NeverSmokeless Tobacco: Never Tobacco Cessation:Counseling Given: Not Answered Alcohol UseStandard Drinks/WeekCommentsDefer0 (1 standard drink = 0.6 oz pure alcohol)CommentsUnknownSex and Gender InformationValueDate RecordedSex Assigned at BirthNot on fileLegal IgeJbiyck87/15/2023 6:47 PM EDTGender Identity Not on fileSexual OrientationNot on file Last Filed Vital Signs Vital SignReadingTime TakenCommentsBlood Ngzyrrwg623/6606 12:00 PM EDT Pulse--Temperature--Respiratory Rate--Oxygen Saturation--Inhaled Oxygen Concentration--Ijorzu87.2 kg (179 lb)07/19/2025 2:24 PM QUWLpdhoi629.4 cm (5') 07/19/2025 2:24 PM ESTBody Mass Index34.9607/19/2025 2:24 PM EST Plan of Treatment Not on file Insurance Care Teams Team MemberRelationshipSpecialtyStart DateEnd Date Fatoumata Chase MD [address] [place] [address] [facility]/18/25
[2025-09-03 12:45] LABS: Glucose Urine UA NEGATIVE (NEGATIVE)
[2025-09-03 12:52] LABS: Cast Seen? NONE SEEN #/LPF (NONE SEEN); Crystals Seen? None Seen #/HPF (None Seen); Urine Culture Indicated YES-FRMC
[2025-09-03 13:04] VITALS: BP 160/67; PULSE 71; O2SAT 97
[2025-09-03] MEDS: LIDOCAINE HCL 1% PF 50 MG/5 ML VIAL INJ (13:25)
--- NOTE | 2025-09-03 14:21 | MR_ITS ---
The [address] [address] Patient Name: SALMA QUAN MRN: [id number] date: 1935 Sex: F Assigned Patient Location: [place] Current Patient Location: [place] Accession/Order Number: [id number] Exam Date: 09/03/2025 18:20 Report Date: 09/03/2025 19:46 At the request of: RIDDHI LITTLE MD Procedure: MR head/brain wo con MR head/brain wo con 09/03/2025 7:11 PM SIGN AND SYMPTOMS: ^frequent falls, extremity weakness PROTOCOL: Multiplanar multisequence MR images of the brain without IV contrast COMPARISON: 09/03/2025. FINDINGS: Extra axial spaces: There is age-related cortical atrophy. Hemorrhage: None. Ventricular system: Within normal limits. Basal cisterns: Within normal limits and not effaced. Cerebral parenchyma: There is a focus of diffusion restriction superior and lateral to the left thalamus along the expected location of the left cortical spinal tract. Correlation with signs of right sided weakness is recommended. T2 and FLAIR hyperintense signal is noted in the periventricular and subcortical white matter suggesting chronic microvascular ischemic change. Midline shift: None.. Cerebellum: Within normal limits. Brainstem: Within normal limits. OTHER: Calvarium: Normal marrow signal. Vascular system: Satisfactory flow voids within the anterior and posterior circulation. Visualized Paranasal sinuses: Within normal limits. Visualized Orbits: Within normal limits. Visualized upper cervical spine: Within normal limits. Sella and skull base: Within normal limits. Infratemporal fossa: There is a 1.4 cm T2 hyperintense structure along the deep margin of the left parotid gland. There is a 1.1 cm T2 hyperintense structure at the inferior margin of the left parotid space. No accompanying diffusion restriction. These are T1 hypointense and debris is present cystic lesions of the parotid. MR/MR head/brain wo con IMPRESSION: There is a focus of diffusion restriction superior and lateral to the left thalamus along the expected location of the left cortical spinal tract. Correlation with signs of right sided weakness is recommended. Additional chronic age-related neuro degenerative changes are noted as above. There is a 1.4 cm T2 hyperintense structure along the deep margin of the left parotid gland. There is a 1.1 cm T2 hyperintense structure at the inferior margin of the left parotid space. No accompanying diffusion restriction. These are T1 hypointense and debris is present cystic lesions of the parotid and are suspicious for malignancy. Impression dictated by: Gaudencio Sanchez M.D. 09/03/2025 7:46 PM Dictation Location: [place] [address] Electronically authenticated by: [id number] Y Date: 09/03/2025 19:46
--- NOTE | 2025-09-03 14:23 | SWNOTE1 ---
SW spoke to Dr. Sykes, pt will likely need rehab/placement to get stronger.
--- NOTE | 2025-09-03 14:29 | PM.IMHP1 ---
Internal Medicine - H&P: HPI History of Present Illness Chief complaint: FALL HEAD INJURY Narrative: Dottie Bates is an 89 y/o F, h/o hypertension, bilateral lymphedema in LE, frequent UTI on nitrofurantoin prophylaxis, s/p L3-L5 fusion, presented to [facility] on 09/03/2025 after mechanical fall with facial laceration, third significant fall in the past 3 weeks prompting request for medical admission for further evaluation. On assessment at bedside in the emergency room, patient resting in bed, daughter at bedside. Patient is alert and oriented, able to provide history with some assistance from daughter, states that was walking from kitchen to living room with assistance of wheeled walker when her legs gave out resulting in fall without loss of consciousness, life alert activated immediately. Previous to other falls recently with same quality, she attributes it largely to dragging her left leg while ambulating due to lymphedema in LLE, although does report some RLE weakness as well. Denies any chest pain, shortness of breath, lightheadedness, dizziness, change in vision, no fevers, chills, nausea vomiting. In the emergency room, WBC 8.1, hemoglobin 15.6, platelet count 232, sodium 141, potassium 3.8, BUN 20, creatinine 0.99. U/a without evidence of UTI, CT imaging of head, cervical, thoracic, lumbar spine showed no acute abnormalities, does report degenerative changes in C-spine. Submandibular laceration sutured in the ER. Review of Systems ROS Status of ROS 10 or more systems reviewed and unremarkable except as noted in history and below [facility] Medical History (Updated 09/03/25 @ 14:43 by RIDDHI LITTLE MD) Benign essential hypertension ?I10 - Essential (primary) hypertension (ICD-10) Type 2 diabetes mellitus with hyperglycemia ?E11.65 - Type 2 diabetes mellitus with hyperglycemia (ICD-10) Recurrent UTI ?N39.0 - Urinary tract infection, site not specified (ICD-10) Edema ?R60.9 - Edema, unspecified (ICD-10) Restless legs ?G25.81 - Restless legs syndrome (ICD-10) Surgical History (Updated 01/16/24 @ 15:35 by Saira Aj RN) History of bladder surgery ?Z98.890 - Other specified postprocedural states (ICD-10) Hx of cholecystectomy ?Z90.49 - Acquired absence of other specified parts of digestive tract (ICD-10) Social History Within the past year, how often did you have a drink containing alcohol: never Score interpretation: A score less than 3 is consistent with normal alcohol consumption. Smoking status: Never smoker Non-prescribed substance use: denies use Previous occupational history: retired Highest level of school completed/degree received: high school graduate Are you now , , , , never or living with a partner: In a typical week, how many times do you talk on the telephone with family, friends, or neighbors: 3 or more times per week How often do you get together with friends or relatives: 3 or more times per week How often do you attend scientologist or judaism services: 1-3 times per year Little interest or pleasure in doing things: not at all Feeling down, depressed, or hopeless: not at all Feel stressed/tense/nervous/anxious/difficulty sleeping: not at all Do you think of yourself as: straight/heterosexual Gender Identity: female Meds Home Medications and Allergies Home Medications ?Medication ?Instructions ?Recorded ?Confirmed ?Type oxybutynin chloride 5 mg tablet 5 mg PO DAILY 04/20/23 09/03/25 History ropinirole 0.5 mg tablet 0.5 mg PO BID 04/20/23 09/03/25 History nitrofurantoin 100 mg PO DAILY 12/25/23 09/03/25 History monohydrate/macrocrystals 100 mg capsule ondansetron HCl 4 mg tablet 4 mg PO Q8H PRN nausea and vomiting 12/25/23 09/03/25 History chlorthalidone 25 mg tablet 25 mg PO QDAY 09/03/25 09/03/25 History spironolactone 25 mg tablet 25 mg PO QDAY 09/03/25 09/03/25 History Allergies Allergy/AdvReac Type Severity Reaction Status Date / Time naproxen AdvReac Mild Unknown Verified 09/03/25 10:39 Exam Narrative Exam Narrative: General: cooperative and tired appearing Orientation: alert, awake and oriented x3 Head: R cheek laceration, submandibular with sutures Neck: normal visual inspection Cardio: no JVD, regular rate, regular rhythm, systolic murmur in LUSB Chest palpation & inspection: normal inspection of the chest Resp Effort & Inspection: normal respiratory effort Abd: soft, non-tender, non-distended Extremities: Warm well perfused, LLE lymphedema 3+, RLE 2+ pretibial pitting edema, DP/PT pulses palpable b/l Neuro: CN II-XII grossly intact, no leg drop in bilateral LE Constitutional Vital Signs, click to edit/add: Last Vital Signs Temp 97.8 F 09/03/25 10:43 Pulse 71 09/03/25 13:04 Resp 16 09/03/25 13:04 BP 160/67 H 09/03/25 13:04 Pulse Ox 97 09/03/25 13:04 O2 Del Method Room Air 09/03/25 13:04 Internal Medicine - H&P: Reslt Labs Labs: Short CBC 09/03/25 Range/Units 11:09 WBC 8.1 (4.0-11.0) 10^3/uL Hgb 15.6 (12.0-16.0) g/dL Hct 47.0 (36.0-48.0) % Plt Count 232 (150-450) 10^3/uL BMP 09/03/25 11:09 Sodium 141 Potassium 3.8 Chloride 105 Carbon Dioxide 29.1 BUN 20.0 H Creatinine 0.99 Glucose 131 H Calcium 9.4 Liver Function 09/03/25 Range/Units 11:09 Total Bilirubin 1.2 H (0.2-1.0) mg/dL AST 32 (15-37) U/L ALT 27 (14-59) U/L Alkaline Phosphatase 95 (46-116) U/L Albumin 2.9 L (3.4-5.0) g/dL Urine 09/03/25 Range/Units 12:30 Urine Color Yellow (YELLOW) Urine Clarity Clear (CLEAR) Urine pH 5.5 (5.0-9.0) Ur Specific [place] 1.025 (1.005-1.025) Urine Protein Negative (NEG/TRACE) mg/dL Urine Glucose (UA) Negative (NEGATIVE) mg/dL Assessment and Plan Assessment and Plan (1) Multiple falls: (2) Status post lumbar spinal fusion: (3) Lumbar back pain: (4) Arthralgia of right shoulder region: (5) Debility: (6) Benign essential hypertension: (7) Type 2 diabetes mellitus with hyperglycemia: Samantha Bates is an 89 y/o F, h/o hypertension, bilateral lymphedema in LE, frequent UTI on nitrofurantoin prophylaxis, s/p L3-L5 fusion, presented to [facility] on 09/03/2025 after mechanical fall with facial laceration, third significant fall in the past 3 weeks prompting request for medical admission for further evaluation. 1. Frequent falls with underlying debility, R arm arthralgia - In the emergency room, WBC 8.1, hemoglobin 15.6, platelet count 232, sodium 141, potassium 3.8, BUN 20, creatinine 0.99. U/a without evidence of UTI, CT imaging of head, cervical, thoracic, lumbar spine showed no acute abnormalities, does report degenerative changes in C-spine. Submandibular laceration sutured in the ER. - metabolic work up with TSH, B12, Vitamin D - MRI brain to r/o stroke, C-spine in due to reported b/l LE weakness and R arm arthralgia - consult teleneuro for additional work up recommendations - PT/OT 2. LLE lymphedema with inhibition of gait - Followed by podiatry as outpatient, has been compliant with diabetic shoes - check LLE DVT u/s - echo in 12/10/23 showed EF 65%, low concern for cardiac etiology - consult podiatry if further imaging warranted 3.3 h/o DM II, hypertension - continue home meds, spironolactone and chlorthalidone - SSI-1 while inpatient Diet: regular carb controlled Daily Labs: CBC, BMP Lines/Drains: PIV DVT ppx: Lovenox Code status: Full Status: inpatient for neuro work up, debility
--- NOTE | 2025-09-03 14:42 | MR_ITS ---
[address] [address] Patient Name: SALMA QUAN MRN: [id number] date: 1935 Sex: F Assigned Patient Location: [place] Current Patient Location: [place] Accession/Order Number: [id number] Exam Date: 09/03/2025 18:20 Report Date: 09/03/2025 19:55 At the request of: RIDDHI LITTLE MD Procedure: MR cervical spine wo con MR cervical spine wo con 09/03/2025 7:11 PM SIGNS AND SYMPTOMS: ^frequent falls w/bilateral LLE and R arm weakness PROTOCOL: Multiplanar multisequence MR images of the cervical spine without IV contrast COMPARISON: 09/03/2025 FINDINGS: The bones of the cervical spine are in anatomic alignment. There is preservation of vertebral body heights. There is mild disc height loss at C4-C5 with moderate disc height loss at C5-C6 and C6-C7. The marrow signal is within normal limits. The cord is normal in signal. No epidural or paraspinous fluid collection is appreciated. The visualized paraspinous soft tissues are within normal limits. The prevertebral soft tissues are within normal limits. At C2-C3: There is a normal disc, central canal, and neural foramen. At C3-C4: There is left-sided uncovertebral joint spurring with mild left neural foraminal narrowing. No spinal canal narrowing. At C4-C5: There is facet hypertrophy with a broad-based disc bulge and uncovertebral joint spurring. There is accompanying facet hypertrophy. There is moderate spinal canal stenosis with moderate bilateral neural foraminal narrowing. At C5-C6: There is a normal disc, central canal, and neural foramen. At C6-C7: There is facet hypertrophy with uncovertebral joint spurring. There is mild bilateral neural foraminal narrowing without significant spinal canal narrowing. At C7-T1: There is a normal disc, central canal, and neural foramen. MR/MR cervical spine wo con IMPRESSION: No cord compression or cord signal abnormality. At C3-C4: There is left-sided uncovertebral joint spurring with mild left neural foraminal narrowing. No spinal canal narrowing. At C4-C5: There is facet hypertrophy with a broad-based disc bulge and uncovertebral joint spurring. There is accompanying facet hypertrophy. There is moderate spinal canal stenosis with moderate bilateral neural foraminal narrowing. At C6-C7: There is facet hypertrophy with uncovertebral joint spurring. There is mild bilateral neural foraminal narrowing without significant spinal canal narrowing. Impression dictated by: Gaudencio Sanchez M.D. 09/03/2025 7:55 PM Dictation Location: [place] [address] Electronically authenticated by: [id number] Y Date: 09/03/2025 19:55
--- NOTE | 2025-09-03 15:10 | SWNOTE1 ---
Pt has consults that need to take place. SW to assess for fpc facility for rehab if pt is still at the hospital.
[2025-09-03 15:15] VITALS: BP 151/56; PULSE 70; TEMP 36.4; O2SAT 96
[2025-09-03 15:40] VITALS: BP 148/72; PULSE 66; TEMP 36.5; O2SAT 97; BMI 35.2
[2025-09-03 15:53] LABS: TSH W/ REFLEX FT4 1.037 uIU/mL (0.358-3.740)
[2025-09-03 16:54] LABS: Folate 14.10 ng/mL (8.60-58.90)
[2025-09-03] MEDS: SPIRONOLACTONE 25 MG TABLET PO (16:54)
[2025-09-03] MEDS: CHLORTHALIDONE 25 MG TABLET PO (16:54)
[2025-09-03] MEDS: ENOXAPARIN SODIUM 30 MG/0.3 ML SYRINGE SUBQ (16:54)
[2025-09-03 20:00] VITALS: BP 134/57; PULSE 64; TEMP 36.4; O2SAT 94
[2025-09-03] MEDS: ROPINIROLE HCL 0.25 MG TABLET 0.5 MG PO (21:08)
[2025-09-03] MEDS: ONDANSETRON 4 MG RAPDIS TABLET PO (21:08)
[2025-09-03] MEDS: TRAMADOL HCL 50 MG TABLET PO (21:09)
[2025-09-04 04:07] LABS: Vitamin B12 453 pg/mL (232-1245)
[2025-09-04] MEDS: TRAMADOL HCL 50 MG TABLET PO ×3 (04:52→21:09)
[2025-09-04 05:45] LABS: Hematocrit 39.8 % (36.0-48.0); Hemoglobin 13.3 g/dL (12.0-16.0); Immature Granulocytes Abs Auto 0.05 10^3/uL (0.00-0.03); Immature Granulocytes Pct Auto 0.6 % (0.0-0.5); Lymphocytes Absolute Auto 1.9 10^3/uL (1.2-3.8); Mean Corpuscular HGB Conc 33.4 g/dL (29.9-35.2); Mean Corpuscular Hemoglobin 32.3 pg (26.7-34.0); Mean Corpuscular Volume 96.6 fL (81.0-99.0); Platelet Count 207 10^3/uL (150-450); Red Blood Count 4.12 10^6/uL (4.20-5.40); White Blood Count 7.8 10^3/uL (4.0-11.0)
[2025-09-04 05:55] LABS: Anion Gap 6.4; Blood Urea Nitrogen 23.0 mg/dL (7.0-18.0); Calcium 8.3 mg/dL (8.5-10.1); Carbon Dioxide 29.5 mmol/L (21.0-32.0); Chloride 107 mmol/L (98-107); Estimated GFR (African America >60 (>=60 mL/min/1.73m^2); Estimated GFR (Non-African Ame 53 (>=60 mL/min/1.73m^2); Glucose 161 mg/dL (74-106); Potassium 3.9 mmol/L (3.5-5.1); Sodium 139 mmol/L (136-145)
[2025-09-04 06:21] VITALS: BP 96/54; PULSE 63; TEMP 36.6; O2SAT 93
[2025-09-04] MEDS: ENOXAPARIN SODIUM 30 MG/0.3 ML SYRINGE SUBQ (08:46)
[2025-09-04] MEDS: NITROFURANTOIN MONOHYD/MAC-CRST 100 MG CAPSULE PO (08:46)
[2025-09-04] MEDS: CHLORTHALIDONE 25 MG TABLET PO (08:46)
[2025-09-04] MEDS: SPIRONOLACTONE 25 MG TABLET PO (08:46)
[2025-09-04] MEDS: ACETAMINOPHEN 500 MG TABLET 1000 MG PO ×2 (08:46→16:01)
[2025-09-04 10:38] VITALS: BP 120/69; PULSE 60; TEMP 36.6; O2SAT 95
--- NOTE | 2025-09-04 10:43 | PM.CN ---
Consult Note: [facility] Data of Consult Consult date: 09/04/25 Requesting Physician: RIDDHI LITTLE MD Primary Care Provider: Fatoumata Chase MD Consult Narrative Reason for consult: Lymphedema and falls Narrative: Patient is an 89-year-old female who is resting comfortably and is accompanied by her daughter. Patient was admitted yesterday due to several falls. I was consulted by the hospitalist to determine if any other imaging is necessary and for ongoing management of lymphedema. cc:: CC: RIDDHI LITTLE MD Review of Systems ROS Status of ROS 10 or more systems reviewed and unremarkable except as noted in history and below [facility] Medical History (Updated 09/04/25 @ 10:47 by Cecil Rogers DPM) Benign essential hypertension ?I10 - Essential (primary) hypertension (ICD-10) Type 2 diabetes mellitus with hyperglycemia ?E11.65 - Type 2 diabetes mellitus with hyperglycemia (ICD-10) Recurrent UTI ?N39.0 - Urinary tract infection, site not specified (ICD-10) Edema ?R60.9 - Edema, unspecified (ICD-10) Restless legs ?G25.81 - Restless legs syndrome (ICD-10) Surgical History (Updated 09/03/25 @ 16:18 by Catrachita Metcalf) Hx of right heart catheterization ?Z98.890 - Other specified postprocedural states (ICD-10) History of bladder surgery ?Z98.890 - Other specified postprocedural states (ICD-10) Hx of cholecystectomy ?Z90.49 - Acquired absence of other specified parts of digestive tract (ICD-10) Social History (Updated 09/03/25 @ 16:19 by Catrachita Metcalf) Within the past year, how often did you have a drink containing alcohol: never Score interpretation: A score less than 3 is consistent with normal alcohol consumption. Smoking status: Never smoker Non-prescribed substance use: denies use Previous occupational history: retired Highest level of school completed/degree received: high school graduate Are you now , , , , never or living with a partner: In a typical week, how many times do you talk on the telephone with family, friends, or neighbors: 3 or more times per week How often do you get together with friends or relatives: 3 or more times per week How often do you attend presybeterian or restoration services: 1-3 times per year Little interest or pleasure in doing things: not at all Feeling down, depressed, or hopeless: not at all Feel stressed/tense/nervous/anxious/difficulty sleeping: only a little Life stressors: recent of family or friend Do you think of yourself as: straight/heterosexual Gender Identity: female Meds Home Medications and Allergies Home Medications ?Medication ?Instructions ?Recorded ?Confirmed ?Type oxybutynin chloride 5 mg tablet 5 mg PO DAILY 04/20/23 09/03/25 History ropinirole 0.5 mg tablet 0.5 mg PO BID 04/20/23 09/03/25 History nitrofurantoin 100 mg PO DAILY 12/25/23 09/03/25 History monohydrate/macrocrystals 100 mg capsule ondansetron HCl 4 mg tablet 4 mg PO Q8H PRN nausea and vomiting 12/25/23 09/03/25 History chlorthalidone 25 mg tablet 25 mg PO QDAY 09/03/25 09/03/25 History spironolactone 25 mg tablet 25 mg PO QDAY 09/03/25 09/03/25 History Allergies Allergy/AdvReac Type Severity Reaction Status Date / Time naproxen AdvReac Mild Unknown Verified 09/03/25 10:39 Exam Narrative Exam Narrative: Skin: All skin from the knee down bilaterally is intact. There is no signs of infection Vascular: Pedal pulses are nonpalpable likely secondary to swelling as feet are warm and there is normal capillary refill. There is no calf pain on squeeze. +3 nonpitting edema consistent with lymphedema Neuro: Light touch sensation is intact to dorsal and plantar foot. Negative Tinel's sign MSK: There is no pain on palpation along the tibia/fibula, medial or lateral malleolus, or bony prominences in either foot. Patient is able to fire all muscle groups of the lower leg without pain and strength is generalized weak Constitutional Vital Signs, click to edit/add: Last Vital Signs Temp 97.8 F 09/04/25 06:21 Pulse 63 09/04/25 06:21 Resp 16 09/04/25 06:21 BP 96/54 09/04/25 06:21 Pulse Ox 93 L 09/04/25 06:21 O2 Del Method Room Air 09/04/25 06:21 Results Labs Labs: Short CBC 09/03/25 09/04/25 Range/Units 11:09 05:28 WBC 8.1 7.8 (4.0-11.0) 10^3/uL Hgb 15.6 13.3 (12.0-16.0) g/dL Hct 47.0 39.8 (36.0-48.0) % Plt Count 232 207 (150-450) 10^3/uL BMP 09/03/25 09/04/25 11:09 05:28 Sodium 141 139 Potassium 3.8 3.9 Chloride 105 107 Carbon Dioxide 29.1 29.5 BUN 20.0 H 23.0 H Creatinine 0.99 0.99 Glucose 131 H 161 H Calcium 9.4 8.3 L Liver Function 09/03/25 Range/Units 11:09 Total Bilirubin 1.2 H (0.2-1.0) mg/dL AST 32 (15-37) U/L ALT 27 (14-59) U/L Alkaline Phosphatase 95 (46-116) U/L Albumin 2.9 L (3.4-5.0) g/dL Urine 09/03/25 Range/Units 12:30 Urine Color Yellow (YELLOW) Urine Clarity Clear (CLEAR) Urine pH 5.5 (5.0-9.0) Ur Specific [place] 1.025 (1.005-1.025) Urine Protein Negative (NEG/TRACE) mg/dL Urine Glucose (UA) Negative (NEGATIVE) mg/dL Assessment and Plan Assessment and Plan (1) Multiple falls: (2) Status post lumbar spinal fusion: (3) Lumbar back pain: (4) Arthralgia of right shoulder region: (5) Debility: (6) Benign essential hypertension: (7) Type 2 diabetes mellitus with hyperglycemia: (8) Lymphedema: Plan Patient seen at bedside. No additional imaging is indicated as patient has no pain in the lower extremities. She has generalized weakness but I do not believe that her falls are secondary to lymphedema. Patient has been treated previously with lymphedema wraps and currently she is using compression stockings. I did offer referral back to PT/OT or lymphedema clinic which was declined by the patient and daughter. If they reconsider the patient may call my office for that referral. No follow-up planned unless something changes. I will sign off on the patient's care for now but feel free to call with any changes or updates.
[2025-09-04] MEDS: ASPIRIN 81 MG TABLET.DR PO (13:09)
--- NOTE | 2025-09-04 14:00 | P.IMPN_ITS ---
Progress Note: A&P Assessment and Plan (1) Cerebrovascular accident (CVA) of left thalamus: (2) Multiple falls: (3) Status post lumbar spinal fusion: (4) Lumbar back pain: (5) Arthralgia of right shoulder region: (6) Debility: (7) Benign essential hypertension: (8) Type 2 diabetes mellitus with hyperglycemia: (9) Lymphedema: Plan 1. Recent acute stroke to the Left Thalamus in the left cortical spinal tract, causing: Right arm and Right hand (dominant hand) weakness and ataxia. Frequent falls with underlying debility - Starting aspirin EC 81 mg daily, and Lipitor 40 mg QHS - Checking echocardiogram, A1C, and lipid panel. - metabolic work up with TSH, B12, Vitamin D all are in the normal range. - PT/OT 2. LLE lymphedema with inhibition of gait - Will SUNI wrap legs here in the hospital - On the outpatient basis needs to get back into the wound care clinic for lymphedema treatments. 3. h/o DM II, hypertension - continue home meds, spironolactone and chlorthalidone - SSI-1 while inpatient Diet: regular carb controlled Daily Labs: CBC, BMP Lines/Drains: PIV DVT ppx: Lovenox 40 mg sc daily. Code status: Full Status: inpatient for neuro work up, acute stroke, ataxia, and debility Internal Medicine - PN: Subj Subjective Interval history: MRI of the brain performed yesterday does show a stroke in the left thalamus and the left corticospinal tract. MRI of the cervical spine performed yesterday does show some age-related changes but no severe spinal cord impingement. The patient was evaluated today by teleneurology out of the [facility]. They did tell the patient's daughter in the room that the patient likely had a stroke about a month ago causing the difficulties with her right upper extremity and right hand. Seeing the patient in the room at this time she does have difficulty moving her right hand. She cannot feed herself with the right hand. She does have some soreness in the shoulder but it is not severe. She may also have rotator cuff injuries because she cannot lift or extend her arm above on the 90 degree point on the horizon. The patient does have a significant amount of of lymphedema in her legs. According to podiatry with Dr. Rogers patient used to use Lymphapress stockings and Lymphapress boots but getting her to the wound care center was challenging so the patient stopped using them. In the room right now I discussed the issues with the daughter at the bedside. The patient will require rehabilitation after the stroke to be able to walk correctly and use her dominant right upper extremity with better strength and better accuracy. Exam Narrative Exam Narrative: General: Out of bed and in a chair. Awake. Alert. Suboptimal historian so her daughter does most of the talking. Cardiac: Grade 2 murmur. No rubs or gallops to auscultation. Pulmonary: Clear to auscultation without any wheezing. GI: Abdomen soft, normal bowel sounds to auscultation. Lower extremities: Does have a moderate amount of very soft puffy lymphedema in her legs with deep indentations on her socks. Neurologic: Has plus 4 out of 5 strength in her right upper extremity. 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 Has poor coordination so she is slow to open and close her hands and slow to use her fingers and slow to nose to finger touching. Her left upper extremity is much more normal and she is beginning to favor that 1. Difficult to test her right lower extremity with her in a chair with her legs elevated but she seems to have brisk Babinski responses to both feet. Constitutional Vital Signs, click to edit/add: Last Vital Signs Temp 97.8 F 09/04/25 10:38 Pulse 60 09/04/25 10:38 Resp 16 09/04/25 10:38 BP 120/69 09/04/25 10:38 Pulse Ox 95 09/04/25 10:38 O2 Del Method Room Air 09/04/25 10:38 Internal Medicine - PN: Obj Da Labs Labs: Laboratory Results - last 24 hr 09/03/25 09/04/25 14:49 05:28 WBC 7.8 RBC 4.12 L Hgb 13.3 Hct 39.8 MCV 96.6 MCH 32.3 MCHC 33.4 RDW 13.5 Plt Count 207 MPV 9.5 Neut % (Auto) 60.5 Lymph % (Auto) 24.7 [place] % (Auto) 10.9 Eos % (Auto) 2.4 Baso % (Auto) 0.9 Neut # (Auto) 4.7 Lymph # (Auto) 1.9 [place] # (Auto) 0.9 H Eos # (Auto) 0.2 Baso # (Auto) 0.1 Abs Immat Gran (auto) 0.05 H Imm/Tot Granulo (auto) 0.6 H Sodium 139 Potassium 3.9 Chloride 107 Carbon Dioxide 29.5 Anion Gap 6.4 BUN 23.0 H Creatinine 0.99 Est GFR ( Amer) >60 Est GFR (Non-Af Amer) 53 L BUN/Creatinine Ratio 23.2 Glucose 161 H Calcium 8.3 L Vitamin B12 453 Vitamin D Level 12.1 Folate 14.10 TSH & Free T4 Interp 1.037
[2025-09-04 15:48] VITALS: BP 110/68; PULSE 62; TEMP 36.5; O2SAT 95
[2025-09-04 18:56] VITALS: BP 107/46; PULSE 58; TEMP 36.7; O2SAT 94
[2025-09-04] MEDS: ONDANSETRON 4 MG RAPDIS TABLET PO (21:10)
[2025-09-04] MEDS: ROPINIROLE HCL 0.25 MG TABLET 0.5 MG PO (21:10)
[2025-09-04] MEDS: ATORVASTATIN CALCIUM 40 MG TABLET PO (21:10)
[2025-09-05] VITALS (7 sets, daily range): BP systolic 98–138; BP diastolic 51–72; PULSE 51–76; TEMP 36.3–36.8; O2SAT 92–96
[2025-09-05 06:15] LABS: Hematocrit 42.5 % (36.0-48.0); Hemoglobin 14.2 g/dL (12.0-16.0); Immature Granulocytes Abs Auto 0.05 10^3/uL (0.00-0.03); Immature Granulocytes Pct Auto 0.7 % (0.0-0.5); Lymphocytes Absolute Auto 1.8 10^3/uL (1.2-3.8); Mean Corpuscular HGB Conc 33.4 g/dL (29.9-35.2); Mean Corpuscular Hemoglobin 32.2 pg (26.7-34.0); Mean Corpuscular Volume 96.4 fL (81.0-99.0); Platelet Count 196 10^3/uL (150-450); Red Blood Count 4.41 10^6/uL (4.20-5.40); White Blood Count 7.0 10^3/uL (4.0-11.0)
[2025-09-05 06:35] LABS: Anion Gap 7.2; Blood Urea Nitrogen 17.0 mg/dL (7.0-18.0); Calcium 8.8 mg/dL (8.5-10.1); Carbon Dioxide 29.7 mmol/L (21.0-32.0); Chloride 107 mmol/L (98-107); Cholesterol 143 mg/dL (<=200); Estimated GFR (African America >60 (>=60 mL/min/1.73m^2); Estimated GFR (Non-African Ame >60 (>=60 mL/min/1.73m^2); Glucose 103 mg/dL (74-106); HDL Cholesterol 74 mg/dL (40-60); Potassium 3.9 mmol/L (3.5-5.1); Sodium 140 mmol/L (136-145); Triglycerides 46 mg/dL (<=150); VLDL CHOLESTEROL 9.2 mg/dL
[2025-09-05] MEDS: SPIRONOLACTONE 25 MG TABLET PO (09:17)
[2025-09-05] MEDS: ASPIRIN 81 MG TABLET.DR PO (09:17)
[2025-09-05] MEDS: TRAMADOL HCL 50 MG TABLET PO ×2 (09:17→21:26)
[2025-09-05] MEDS: CHLORTHALIDONE 25 MG TABLET PO (09:17)
[2025-09-05] MEDS: ENOXAPARIN SODIUM 30 MG/0.3 ML SYRINGE SUBQ (09:17)
[2025-09-05] MEDS: NITROFURANTOIN MONOHYD/MAC-CRST 100 MG CAPSULE PO (09:18)
[2025-09-05] MEDS: ONDANSETRON 4 MG RAPDIS TABLET PO ×2 (10:26→21:26)
[2025-09-05 12:12] LABS: Glucose Urine UA NEGATIVE (NEGATIVE)
--- NOTE | 2025-09-05 12:23 | PM.IMPN1 ---
Progress Note: A&P Assessment and Plan (1) Cerebrovascular accident (CVA) of left thalamus: (2) Multiple falls: (3) Status post lumbar spinal fusion: (4) Lumbar back pain: (5) Arthralgia of right shoulder region: (6) Debility: (7) Benign essential hypertension: (8) Type 2 diabetes mellitus with hyperglycemia: (9) Lymphedema: Plan 1. Recent acute stroke to the Left [place] in the left cortical spinal tract, causing: Right arm and Right hand (dominant hand) weakness and poor coordination. Frequent falls with underlying debility - Started new aspirin EC 81 mg daily, and Lipitor 40 mg QHS - Checking echocardiogram - A1C is good at 5.4. - Lipid panel is good at LDL of 60 and HDL of 74. - metabolic work up with TSH, B12, Vitamin D all are in the normal range. - PT/OT 2. BLE lymphedema with inhibition of gait - Will LEE wrap legs here in the hospital - On the outpatient basis needs to get back into the wound care clinic for lymphedema treatments. 3. h/o DM II, hypertension - continue home meds, spironolactone and chlorthalidone - SSI-1 while inpatient 4. Mid-thoracic back pain, due to the falls at home. - Using Tramadol, which has worked very well for her in the past. 5. Right shoulder pain. - Due to falls at home. - Range of motion suggests rotator cuff issues. - Voltaren Gel 4 grams to the shoulder TID. 6. In-hospital development of Constipation. - Increasing Senna to TID PRN. - Starting Miralax 17 grams daily. Diet: regular carb controlled Daily Labs: CBC, BMP Lines/Drains: PIV DVT ppx: Lovenox 40 mg sc daily. Code status: Full Status: inpatient for neuro work up, acute stroke, ataxia, and debility Internal Medicine - PN: Subj Subjective Interval history: Today the patient continues to express how much difficulty she has doing simple activities of daily living, such as feeding herself, because she has difficulty using her right hand. She still complains of pain of the right shoulder. Voltaren gel has been ordered for pain in the right shoulder. Told the patient to continue to work on her own exercises to work on getting the strength and coordination back in her hand. The patient has not had a bowel movement since coming to the hospital. At home she does not take really anything to keep her bowels regular. Here for low back pain she has been using tramadol. She also uses Zofran at home chronically due to nausea when she eats. So I have increased the Senokot to 3 times a day as needed and added MiraLAX daily. Bedside nursing noticed that the patient's urine was malodorous. Straight catheterization was done. The urine was dark and cloudy with the odor present. This has been sent to the lab for UA and C+S. The patient, and her daughter who comes into the room explained that she had a long history of frequent UTIs and then she got put on Macrobid 100 mg daily which seemed to reduce her UTI frequency a great deal. But I explained it is possible the bacteria is been resistant to the Macrobid so we will begin treating her for that possibility. On lab work for the stroke her A1c is quite good at 5.4. Triglycerides 46, LDL cholesterol 60. HDL cholesterol 74. Exam Narrative Exam Narrative: General: Sitting upright in bed. Awake. Alert. Nicely conversant today. Cardiac: Grade 2 murmur. No rubs or gallops to auscultation. Pulmonary: Clear to auscultation without any wheezing. GI: Abdomen soft, normal bowel sounds to auscultation. Lower extremities: Today her legs have been wrapped with Lee wrap's to control the lymphedema, from the dorsum of her feet up above her knees. Neurologic: Has good coding specialist strength of the right hand but very poor coordination throughout the entire right upper extremity. Constitutional Vital Signs, click to edit/add: Last Vital Signs Temp 97.8 F 09/05/25 07:48 Pulse 62 09/05/25 07:48 Resp 16 09/05/25 07:48 BP 138/72 09/05/25 07:48 Pulse Ox 96 09/05/25 07:48 O2 Del Method Room Air 09/05/25 07:48 Internal Medicine - PN: Obj Da Labs Labs: Laboratory Results - last 24 hr 09/05/25 09/05/25 06:01 12:00 WBC 7.0 RBC 4.41 Hgb 14.2 Hct 42.5 MCV 96.4 MCH 32.2 MCHC 33.4 RDW 13.4 Plt Count 196 MPV 9.6 Neut % (Auto) 56.6 Lymph % (Auto) 25.0 [place] % (Auto) 12.7 H Eos % (Auto) 4.1 Baso % (Auto) 0.9 Neut # (Auto) 4.0 Lymph # (Auto) 1.8 [place] # (Auto) 0.9 H Eos # (Auto) 0.3 Baso # (Auto) 0.1 Abs Immat Gran (auto) 0.05 H Imm/Tot Granulo (auto) 0.7 H Sodium 140 Potassium 3.9 Chloride 107 Carbon Dioxide 29.7 Anion Gap 7.2 BUN 17.0 Creatinine 0.82 Est GFR ( Amer) >60 Est GFR (Non-Af Amer) >60 BUN/Creatinine Ratio 20.7 Glucose 103 Estimat Average Glucose 108 Hemoglobin A1c 5.4 Calcium 8.8 Triglycerides 46 Cholesterol 143 LDL Cholesterol, Calc 60.0 VLDL Cholesterol 9.2 HDL Cholesterol 74 H Cholesterol/HDL Ratio 1.9 Urine Color Lt. yellow Urine Clarity Clear Urine pH 7.5 Ur Specific [place] 1.010 Urine Protein Negative Urine Glucose (UA) Negative Urine Ketones Negative Urine Occult Blood Negative Urine Nitrite Positive A Urine Bilirubin Negative Urine Urobilinogen 2.0 A Ur Leukocyte Esterase Small A
[2025-09-05] MEDS: DICLOFENAC SODIUM 1% 100 GM TUBE TOPICAL ×3 (12:36→21:26)
[2025-09-05] MEDS: POLYETHYLENE GLYCOL 3350 17 GM POWDER PACKET PO (12:37)
[2025-09-05] MEDS: SENNOSIDES/DOCUSATE SODIUM 1 TAB TABLET PO (12:38)
[2025-09-05] MEDS: ROPINIROLE HCL 0.25 MG TABLET 0.5 MG PO (21:26)
[2025-09-05] MEDS: POLYETHYLENE GLYCOL 3350 238 GM BOTTLE PO (21:26)
[2025-09-05] MEDS: ATORVASTATIN CALCIUM 40 MG TABLET PO (21:26)
[2025-09-06] VITALS (10 sets, daily range): BP systolic 115–139; BP diastolic 63–77; PULSE 51–85; TEMP 36.4–36.7; O2SAT 93–98
[2025-09-06] MEDS: SENNOSIDES/DOCUSATE SODIUM 1 TAB TABLET PO (02:08)
[2025-09-06 05:35] LABS: Hematocrit 44.0 % (36.0-48.0); Hemoglobin 14.7 g/dL (12.0-16.0); Immature Granulocytes Abs Auto 0.07 10^3/uL (0.00-0.03); Immature Granulocytes Pct Auto 1.0 % (0.0-0.5); Lymphocytes Absolute Auto 0.9 10^3/uL (1.2-3.8); Mean Corpuscular HGB Conc 33.4 g/dL (29.9-35.2); Mean Corpuscular Hemoglobin 32.2 pg (26.7-34.0); Mean Corpuscular Volume 96.3 fL (81.0-99.0); Platelet Count 199 10^3/uL (150-450); Red Blood Count 4.57 10^6/uL (4.20-5.40); White Blood Count 6.7 10^3/uL (4.0-11.0)
[2025-09-06 05:50] LABS: Anion Gap 10.9; Blood Urea Nitrogen 17.0 mg/dL (7.0-18.0); Calcium 8.9 mg/dL (8.5-10.1); Carbon Dioxide 27.1 mmol/L (21.0-32.0); Chloride 105 mmol/L (98-107); Estimated GFR (African America >60 (>=60 mL/min/1.73m^2); Estimated GFR (Non-African Ame >60 (>=60 mL/min/1.73m^2); Glucose 148 mg/dL (74-106); Potassium 4.0 mmol/L (3.5-5.1); Sodium 139 mmol/L (136-145)
[2025-09-06] MEDS: DICLOFENAC SODIUM 1% 100 GM TUBE TOPICAL ×4 (05:58→23:20)
--- NOTE | 2025-09-06 07:00 | CA_ITS ---
Patient Name: SALMA QUAN MR#: [id number] : 1935 Exam Date: 09/06/2025 Ordering Doctor: JOHNNY SANTO ECHOCARDIOGRAM REPORT PROCEDURE: CA ECHO DOPPLER COMPLETE INDICATIONS: stroke COMPARISON: None. DESCRIPTION: COMPLETE ECHOCARDIOGRAM Real-time transthoracic echocardiography with 2D, M-mode, spectral and color flow Doppler performed. QUALITY: Technical quality was good. LEFT VENTRICLE: Normal chamber size. Thickened septal wall. Global left ventricular systolic function is normal. Visual estimation of left ventricular ejection fraction is 65-70% LV EF: Normal left ventricular ejection fraction, (>55%). DIASTOLIC: Grade II diastolic dysfunction. ATRIAL SEPTUM: LEFT ATRIUM: Moderate dilatation. RIGHT ATRIUM: Moderate dilatation. RIGHT VENTRICLE: Normal chamber size. Normal right ventricular systolic function. TRICUSPID VALVE: Normal mobility and thickness. No stenosis with mild to moderate regurgitation. Mild pulmonary hypertension. RVSP 37 mmHg. MITRAL VALVE: Mildly thickened with normal mobility. No evidence of mitral valve stenosis. Moderate mitral annular calcification. Mild to moderate mitral regurgitation. AORTIC VALVE: Normal trileaflet appearance. Moderately calcified aortic valve. Moderately diminished mobility. Doppler velocity suggests moderate aortic valve stenosis. DVI 0.4, Vmax 2.83 m/s, CARLOS 1.5 cm2, peak/mean gradients 32/15 mmHg. No aortic regurgitation. AORTIC ROOT: Normal diameter and appearance. The aortic root measures 2.6 cm. The ascending aorta is normal in size and measures 3.0 cm. PULMONIC VALVE: Normal thickness and mobility. No stenosis. Trivial regurgitation. PERICARDIUM: No evidence of pericardial effusion. IVC: Collapses with inspiration. The IVC is upper limits of normal in size measuring 2.1cm. PLEURA: CONCLUSION: 1. Normal left ventricular size and systolic function. Estimated LVEF is 65 to 70%. 2. Normal right ventricular size and systolic function. 3. Moderate biatrial dilatation. 4. Grade 2 diastolic dysfunction. 5. Moderate aortic valve stenosis. 6. Mild to moderate mitral and tricuspid regurgitation. 7. Mildly elevated right-sided pressures. Adult Echocardiography Procedure Report Left Ventricle LVEDD (3.7 - 5.6 cm): 4.30 cm LVESD (2.2 - 4.0 cm): 2.40 cm LVIVS thickness (0.6 - 1.2 cm): 1.35 cm LVPW thickness (0.5 - 1.0 cm): 0.97 cm e': 0.06 m/s E - e': 19.47 LVOT Max Gradient: 5.28 mm[Hg] LVOT Area (cm2): 1.15 m/s Peak Velocity (LVOT): 1.15 m/s Mean Velocity (LVOT): 0.71 m/s LVOT Diameter 2.00 cm Left Ventricular Ejection Fraction: 65-70 % Left Atrium LA Volume Index (2D A2C): 43.04 ml/m2 Left Atrium Systolic Dimension: 4.65 cm Mitral Valve MV E to A Ratio: 0.89 Mitral Valve A-Wave Peak Velocity: 1.35 m/s Mitral Valve E-Wave Peak Velocity: 1.20 m/s Right Ventricle RV Internal Diastolic Dimension: 3.53 cm Aorta AO Root Diam: 2.60 cm Ascending Ao Diam: 2.99 cm Aortic Valve AoV Area (Peak Kostas): 1.44 cm2, 1.47 cm2 AoV Area (VTI): 1.52 cm2, 1.60 cm2 Peak Velocity(Antegrade Flow): 2.46 m/s, 2.27 m/s, 2.83 m/s Peak Gradient(Antegrade Flow): 24.19 mm[Hg], 20.65 mm[Hg], 32.10 mm[Hg] Mean Velocity(Antegrade Flow): 1.60 m/s, 1.51 m/s, 1.79 m/s Mean Gradient(Antegrade Flow): 12.10 mm[Hg], 10.68 mm[Hg], 15.26 mm[Hg] Velocity Time Integral: 58.48 cm, 56.37 cm, 70.60 cm Tricuspid Valve Peak Velocity (Regurgitant Flow): 2.15 m/s, 2.55 m/s, 2.91 m/s Pulmonic Valve Mean Gradient: 1.96 mm[Hg], 2.36 mm[Hg] Mean Velocity: 0.66 m/s, 0.72 m/s Peak Velocity: 0.96 m/s Peak Gradient: 3.32 mm[Hg], 4.11 mm[Hg] Right Atrium Right Atrium Systolic Pressure: 52.79 ml, 52.79 ml Dictated by: Lauro Patel M.D. on 09/07/2025 at 08:28 Approved by: Lauro Patel M.D. on 09/07/2025 at 08:33
--- NOTE | 2025-09-06 08:40 | CM.NOTE ---
Rounds made with Dr. Weller, discussed plan of care with pt and daughter. Daughter verbalizes if pt would need to go skilled at discharge they would pick [facility]. SW updated on pt choice would be [facility] for skilled. No discharge today.
--- NOTE | 2025-09-06 09:03 | SWNOTE1 ---
JASMYNE spoke to CM and pt would like the [facility] for rehab. JASMYNE called [facility] and spoke to her. [facility] voiced they do not have a bed today, but after there morning meeting she will know if they have a bed tomorrow. [facility] will let JASMYNE know. JASMYNE updated CM.
--- NOTE | 2025-09-06 09:08 | SWNOTE1 ---
Pt is not ready for discharge today. JASMYNE received a message from Chago at the [facility] and they have 2 discharges tomorrow. Chago requested JASMYNE send referral. Pt does want the [facility].
--- NOTE | 2025-09-06 09:19 | SWNOTE1 ---
Referral sent to [facility]. Referral included face sheet, ED note, H&P, provider notes, case management report, ortho consult, teleneuro consult,nursing notes, diagnostic imaging, and med list. SW to send PT/OT evals once completed.
[2025-09-06] MEDS: ENOXAPARIN SODIUM 30 MG/0.3 ML SYRINGE SUBQ (10:13)
[2025-09-06] MEDS: ASPIRIN 81 MG TABLET.DR PO (10:14)
[2025-09-06] MEDS: CHLORTHALIDONE 25 MG TABLET PO (10:14)
[2025-09-06] MEDS: POLYETHYLENE GLYCOL 3350 17 GM POWDER PACKET PO (10:14)
[2025-09-06] MEDS: SPIRONOLACTONE 25 MG TABLET PO (10:14)
[2025-09-06] MEDS: ACETAMINOPHEN 500 MG TABLET 1000 MG PO (10:15)
--- NOTE | 2025-09-06 10:26 | SWNOTE1 ---
SW did receive an email from Chago at [facility] and they can accept pt once she is ready for discharge. SW updated pt's daughter in room. Pt was working with speech therapy.
--- NOTE | 2025-09-06 10:27 | P.PN_ITS ---
Progress Note: Subjective Subjective Interval history: Following up with the patient for the first time. No chest pain or palpitation. No abdominal pain, nausea or vomiting Exam Narrative Exam Narrative: [pt is awake and alert. oriented to place, time and person. Patient is awake and oriented. Cachectic and frail in appearance. HEENT: [place] conjunctiva and NL buccal mucosa. Bruising and ecchymosis involving the left side of the jaw and neck. Neck: Supple, no tenderness Endocrine: No Thyromegaly. Vascular: No JVD or carotid bruit. Lymphatic: No cervical lymphadenopathy. Chest: CTA no DTP. Heart RRR, no extra sound or murmur. Abd: Soft, no tenderness, no rebound and no rigidity. Increase abd girth therefore clinically I could not exclude the possibility of intra abd mass or organomegaly. LE: No cyanosis or clubbing, no varices or edema. 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 Neuro: A A O. Nl speech, normal focus and attention span. Able to follow command. Able to answer questions. Right arm strength is 3-4/5. Right leg is 5/5. Moderate functional loss overall. []] Constitutional Vital Signs, click to edit/add: Last Vital Signs Temp 97.9 F 09/06/25 07:56 Pulse 60 09/06/25 07:56 Resp 16 09/06/25 07:56 BP 120/66 09/06/25 07:56 Pulse Ox 98 09/06/25 07:56 O2 Del Method Room Air 09/06/25 07:56 Progress Note: Objective Labs Labs: Short CBC 09/06/25 Range/Units 05:20 WBC 6.7 (4.0-11.0) 10^3/uL Hgb 14.7 (12.0-16.0) g/dL Hct 44.0 (36.0-48.0) % Plt Count 199 (150-450) 10^3/uL BMP 09/06/25 05:20 Sodium 139 Potassium 4.0 Chloride 105 Carbon Dioxide 27.1 BUN 17.0 Creatinine 0.83 Glucose 148 H Calcium 8.9 Urine 09/05/25 Range/Units 12:00 Urine Color Lt. yellow (YELLOW) Urine Clarity Clear (CLEAR) Urine pH 7.5 (5.0-9.0) Ur Specific [place] 1.010 (1.005-1.025) Urine Protein Negative (NEG/TRACE) mg/dL Urine Glucose (UA) Negative (NEGATIVE) mg/dL Progress Note: A&P Assessment and Plan (1) Cerebrovascular accident (CVA) of left thalamus: (2) Multiple falls: (3) Status post lumbar spinal fusion: (4) Lumbar back pain: (5) Arthralgia of right shoulder region: (6) Debility: (7) Benign essential hypertension: (8) Type 2 diabetes mellitus with hyperglycemia: (9) Lymphedema: Plan Left hemispheric CVA with right-sided deficit. Patient was started on aspirin and statin Carotid and echocardiogram Telemetry monitoring rule out A-fib PT OT, speech therapy Recommend skilled care UTI Urine cultures pending, continue ceftriaxone Vitamin D deficient Start patient on vitamin D supplementation. I suspect that patient may have osteoporosis. Recommend DEXA scan in the outpatient setting. 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 Please refer to imaging and report for details. Symptoms management Follow-up in the outpatient setting. Consideration for patient to follow-up with spine surgery team Constipation Continue stool softeners and laxatives DVT prophylaxis Lovenox subcu Chronic, subacute medical conditions not listed above, abnormal labs and imaging, incidental findings seen on labs and or imaging. These would need to be addressed. Could be addressed later on or in the outpatient setting by PCP collaboration with other needed outpatient providers when time and condition are appropriate. I had discussed her case with her daughter at the bedside. I provided her information about her disease, prognosis, expectation and trajectory. Answered all of her questions Urinary Catheter Management Urinary Catheter Management Straight: Cath placed during this visit: yes Urethral indwelling: No Insertion date: 09/05/25 Insertion time: 12:00
--- NOTE | 2025-09-06 10:46 | CM.NOTE ---
Important Message From Medicare discussed with pt, pt and daughter verbalize understanding. Pt signs paper, original given to pt and copy placed in pt's chart.
--- NOTE | 2025-09-06 12:48 | SWNOTE1 ---
JASMYNE faxed PT/OT notes to Shamika at the [facility].
[2025-09-06] MEDS: TRAMADOL HCL 50 MG TABLET PO (12:51)
[2025-09-06] MEDS: ERGOCALCIFEROL (VITAMIN D2) 1,250 MCG/50,000 UNITS CAPSULE 1250 MCG PO (12:51)
--- NOTE | 2025-09-06 12:58 | SWNOTE1 ---
JASMYNE completed PASRR online and sent the results and completed PASRR to Nilesh at the [facility].
[2025-09-06] MEDS: ROPINIROLE HCL 0.25 MG TABLET 0.5 MG PO (23:22)
[2025-09-06] MEDS: ATORVASTATIN CALCIUM 40 MG TABLET PO (23:22)
[2025-09-07] VITALS (8 sets, daily range): BP systolic 109–124; BP diastolic 56–73; PULSE 50–62; TEMP 36.6; O2SAT 93–95
[2025-09-07] MEDS: DICLOFENAC SODIUM 1% 100 GM TUBE TOPICAL ×2 (06:01→11:47)
--- NOTE | 2025-09-07 07:30 | CM.NOTE ---
Dr. Weller provided with pt's urine culture and susceptibility.
--- NOTE | 2025-09-07 08:20 | CM.NOTE ---
Rounds made with Dr. Weller, pt will discharge to skilled today. Pt will go to [facility] in [place], CM will update [facility] will discharge. Pt will need f/u with Dr. Millan and [facility].
[2025-09-07] MEDS: SPIRONOLACTONE 25 MG TABLET PO (08:31)
[2025-09-07] MEDS: ENOXAPARIN SODIUM 30 MG/0.3 ML SYRINGE SUBQ (08:31)
[2025-09-07] MEDS: ASPIRIN 81 MG TABLET.DR PO (08:31)
[2025-09-07] MEDS: CHLORTHALIDONE 25 MG TABLET PO (08:31)
--- NOTE | 2025-09-07 08:34 | REH.PTDLY ---
Physical Therapy Daily Note PT Daily Note/Assess Start: 09/07/25 08:28 Freq: Status: Active Protocol: Document 09/07/25 07:55 [email or web address] (Rec: 09/07/25 08:34 KSTEINLE [id number]) Physical Therapy Daily Note/Assessment Time In 07:28 Time Out 07:55 Pain Level 6 Pain Level 6 Subjective Pt reports pain in back is a 6/10. R shoulder also can be bothersome. Daughter in room with pt. Pt is agreeable to therapy, just afraid of falling again. Therapeutic Exercise 10 Minutes (minutes) Therapeutic Exercise 1 Units Therapeutic Exercise Instructed in supine exs 10x ea prior to getting out of Treatment bed for improved strength and mobility. Exs included AP, QS, heel slides, hip abd slides, and SLR. Pt able to perform SLR better on R compared to L. Once seated in chair pt performed LAQ, marching, step outs, and hip add squeeze 10x ea. Therapeutic Activity 14 Minutes (minutes) Therapeutic Activity 1 Units Therapeutic Activity Mod A with supine to sit transfers with cues for pt to Comments use bed rail to assist in log rolling and then sitting upright to help avoid increased strain on LB. Pt needs Max A to help scoot forward so feet are touching floor. Sit to stand transfers CGA. Gait training with RW CGA 4 feet to chair, several cues for gait sequence to reassure pt safety and make her more comfortable while performing gait. Pt's strides get smaller as she fatigues and needs cues for larger strides. Pt needs assistance, cushion under feet, and cues for her to scoot back in chair for improved positioning. Total Therapy 24 Minutes Total Physical 2 Therapy Units Daily Note Summary Pt continues to be fearful of falling, but is comfortable with 1 assist today compared to requesting 2 assist yesterday. Several cues given with gait to improve gait quality. Pt reports LB pain continues to be a 6 post rx and is fatigued. Pt would benefit from SNF stay as she is unable to care for herself at this time.
[2025-09-07] MEDS: ONDANSETRON 4 MG RAPDIS TABLET PO (08:37)
--- NOTE | 2025-09-07 08:44 | CM.NOTE ---
I placed a call to the [facility] in [place] and spoke with Riana. They said they would call us back after their morning meeting and let us know when a bed would be available.
--- NOTE | 2025-09-07 09:32 | CM.NOTE ---
I placed a call to [facility] for transportation to the [facility] in [place] and ETA is between [phone].
--- NOTE | 2025-09-07 10:40 | CM.NOTE ---
[facility] unable to transport pt later than 1:30, updated pt and daughter. Daughter given option to transport pt, daughter unable to transport. CM will find other transportation for pt.
--- NOTE | 2025-09-07 11:00 | CM.NOTE ---
[facility] will transport patient to the [facility] in [place] at 1530 today
--- NOTE | 2025-09-07 11:10 | CM.NOTE ---
[facility] canceled and pt will transport via [facility].
--- NOTE | 2025-09-07 11:51 | P.DS_ITS ---
DS: Providers Provider Date of admission: 09/03/25 15:12 Primary care physician: Fatoumata Chase MD Consults: 09/03/25 14:21 Consult to Podiatry Routine Consulting Provider: Cecil Rogers Reason for consultation: LLE lymphedema Consult to TeleNeurology Routine Reason for consultation: frequent falls 09/04/25 Occupational Therapy Eval and Treat Routine Reason for consultation: weakness, falls Has provider been notified: Yes Physical Therapy Eval and Treat Routine Reason for consultation: weakness, falls Has provider been notified: Yes 09/06/25 Speech Therapy Eval and Treat Routine Reason for consultation: swallow 09/06/25 10:26 Clinical Bedside Swallow Eval and Treat Routine Reason for consultation: CVA DS: Diagnosis Discharge Diagnosis (1) Cerebrovascular accident (CVA) of left thalamus: (2) Multiple falls: (3) Status post lumbar spinal fusion: (4) Lumbar back pain: (5) Arthralgia of right shoulder region: (6) Debility: (7) Benign essential hypertension: (8) Type 2 diabetes mellitus with hyperglycemia: (9) Lymphedema: Plan As listed above, below and others that are not listed DS: Summary Hospital Course Hospital Course: Mrs. Fitzgerald is an 89-year-old female who was brought to the emergency room after she fell down. She was found to have the following: Left hemispheric CVA with right-sided deficit. Patient was started on aspirin and statin as recommended by neurology team. Carotid and echocardiogram. Carotid does not show any significant stenosis. Positive for 50% stenosis of the left proximal ICA. Echocardiogram does not show cardiomyopathy no thrombus seen. No vegetation. Telemetry monitoring rule out A-fib. Telemetry does not show any atrial fibrillation. PT OT, speech therapy Recommend skilled care. Patient will be discharged to skilled care. UTI Urine culture is positive for pansensitive E. coli. Patient had received intravenous ceftriaxone and will be discharged on oral cefuroxime. Vitamin D deficient Start patient on vitamin D supplementation. I suspect that patient may have osteoporosis. Recommend DEXA scan in the outpatient setting. Moderate aortic stenosis seen on echocardiogram. This may need to be followed up with a yearly echocardiogram to be arranged by PCP. 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 Outpatient. Bruising and ecchymosis involving left neck Multiple abnormalities seen on cervical, thoracic and lumbar imaging. Please refer to imaging and report for details. Neural foraminal narrowing and moderate spinal stenosis at C4-C5. Osteoarthritis involving all joints. Symptoms management Follow-up in the outpatient setting. Consideration for patient to follow-up with spine surgery team to be arranged by PCP. Constipation Continue stool softeners and laxatives Patient has had multiple bowel movement. Change stool softeners and stimulants to as needed. DVT prophylaxis Lovenox subcu. retirement provider will decide based on her ambulation status to see if she would qualify for pharmacological DVT prophylaxis. Chronic, subacute medical conditions not listed above, abnormal labs and imaging, incidental findings seen on labs and or imaging. These would need to be addressed. Could be addressed later on or in the outpatient setting by PCP collaboration with other needed outpatient providers when time and condition are appropriate. I had discussed her case with her daughter at the bedside. I provided her information about her disease, prognosis, expectation and trajectory. Answered all of her questions Patient has multiple complex medical issues as listed above and others that are not listed. All appear to be stable. I do not have any clear or strong clinical justification to extend inpatient hospitalization. Patient however will require close and frequent monitoring as well as additional work-up, investigation and therapeutic intervention that could take place from this point on post discharge. That is to prevent relapse, decompensation, rehospitalization and other medical implications.. I instructed patient to ask her primary care doctor to obtain [facility] record entirely to address abnormalities seen on labs and imaging that I have and have not addressed during this hospitalization, follow-up on pending blood work, imaging and pathology is if available and to follow-up on needed medical care in the outpatient setting. Time Spent with Patient Time attestation: Total time spent providing and/or coordinating discharge services: Time spent: greater than 30 minutes Exam Narrative Exam Narrative: [pt is awake and alert. oriented to place, time and person. Patient is awake and oriented. Cachectic and frail in appearance. HEENT: [place] conjunctiva and NL buccal mucosa. Bruising and ecchymosis involving the left side of the jaw and neck. Neck: Supple, no tenderness Endocrine: No Thyromegaly. Vascular: No JVD or carotid bruit. Lymphatic: No cervical lymphadenopathy. Chest: CTA no DTP. Heart RRR, no extra sound or murmur. Abd: Soft, no tenderness, no rebound and no rigidity. Increase abd girth therefore clinically I could not exclude the possibility of intra abd mass or organomegaly. LE: No cyanosis or clubbing, no varices or edema. 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 Neuro: A A O. Nl speech, normal focus and attention span. Able to follow command. Able to answer questions. Right arm strength is 4/5. Right leg is 5/5. Moderate functional loss overall. []] Constitutional Vital Signs, click to edit/add: Last Vital Signs Temp 97.9 F 09/07/25 07:00 Pulse 62 09/07/25 10:00 Resp 18 09/07/25 07:00 BP 109/56 09/07/25 07:00 Pulse Ox 93 L 09/07/25 07:00 O2 Del Method Room Air 09/07/25 07:00 DS: Data Data Completed and Pending Labs on day of discharge: Preliminary micro results at discharge 09/05/25 12:00 Urine Culture - Preliminary Urine Catheterized Pending - Specimen sent to [facility] Discharge Plan Discharge Disposition: Xfer [facility] Discharge Medications: New acetaminophen 500 mg Tablet 500 mg PO Q6H PRN (Reason: Pain) Qty: 0 0RF aspirin 325 mg tablet 325 mg PO DAILY Qty: 60 0RF atorvastatin 40 mg Tablet 40 mg PO QHS Qty: 0 0RF polyethylene glycol 3350 17 gram Powder In Packet 17 g PO QD PRN (Reason: COnstipation) Qty: 0 0RF sennosides-docusate sodium 8.6-50 mg Tablet 1 tab PO TID PRN (Reason: Constipation) Qty: 0 0RF cefuroxime axetil 500 mg tablet 500 mg PO BID 7 Days Qty: 14 0RF ergocalciferol (vitamin D2) [Vitamin D2] 1,250 mcg (50,000 unit) capsule 1,250 mcg PO QWEEK 30 Days Qty: 5 0RF Continued oxybutynin chloride 5 mg tablet 5 mg PO DAILY ropinirole 0.5 mg tablet 0.5 mg PO BID spironolactone 25 mg tablet 25 mg PO QDAY chlorthalidone 25 mg tablet 25 mg PO QDAY Discontinued nitrofurantoin monohyd/m-cryst 100 mg capsule 100 mg PO DAILY ondansetron HCl 4 mg tablet 4 mg PO Q8H PRN (Reason: nausea and vomiting) Print Language: Sudanese Activity Restrictions/Additional Instructions: I may not have addressed or treated all of your medical illnesses or the abnormal blood work or imaging studies during this hospitalization. Please ask your primary care provider to obtain [facility] records entirely to follow up on all of the abnormal physical, laboratory, and imaging findings that I have not addressed. Please return back to the emergency room or seek medical attention if your symptoms worsen or return. Fall precautions. Follow-up with ENT regarding left parotid gland lesion. Discharging you from [facility] does not mean that your medical care ends here and now. You may still need additional monitoring, work up, investigation, and treatment plan to be handled from this point on by out patient providers including your primary care provider and specialists. For any medication question, please contact your retail pharmacist or your primary care provider. Thank you. Forms: Portal Instructions Follow Up Appointments: [facility] Neurology - 11/03/25 @ 2p [address] [address] [phone] [facility] will call the patient to schedule an appt. [address] [phone] This is in regard to left parotid gland lesion.
--- NOTE | 2025-09-07 12:21 | CM.NOTE ---
Riana mo [place] was told that transportation would be picking up the pt at 1530
--- NOTE | 2025-09-07 12:51 | PC.NURSE ---
Report called to [facility]. Transfer time set for approx. 15:30
== END 2025-09-07 16:13 | DRG 65 ==
LOC: ER 14:07 → MS 15:28
PROVIDERS: Hospitalist; Admitting Provider Student in an Organized Health Care Education/Training Program; Emergency Provider Emergency Medicine; PCP Family Medicine; Visit Provider Student in an Organized Health Care Education/Training Program
DX: I63.89 Other cerebral infarction (principal); N39.0 Urinary tract infection, site not specified; E11.65 Type 2 diabetes mellitus with hyperglycemia; R27.8 Other lack of coordination; G83.21 Monoplegia of upper limb affecting right dominant side; I89.0 Lymphedema, not elsewhere classified; I10 Essential (primary) hypertension; M25.511 Pain in right shoulder; I35.0 Nonrheumatic aortic (valve) stenosis; B96.20 Unspecified Escherichia coli [E. coli] as the cause of diseases classified elsewhere; K59.00 Constipation, unspecified; C07 Malignant neoplasm of parotid gland; E55.9 Vitamin D deficiency, unspecified; M48.02 Spinal stenosis, cervical region; M15.9 Polyosteoarthritis, unspecified; R29.6 Repeated falls; Z87.440 Personal history of urinary (tract) infections; Z91.81 History of falling; W19.XXXA Unspecified fall, initial encounter; Z98.1 Arthrodesis status; Z79.899 Other long term (current) drug therapy
CPT/HCPCS: 36415; 70450; 70486; 70551; 72125; 72128; 72131; 72141; 76376; 80048; 80053; 80061; 81001; 81003; 82306; 82607; 82746; 83036; 84443; 85025; 87086; 87088; 87186; 90471; 90715; 92526; 92610; 93306; 93880; 93971; 97110; 97163; 97165; 97530; 97535; 99285; J0696; J1650; Q0162